=== PATIENT | male | born 1945 | race Caucasian/White ===

== ENCOUNTER → 2021-01-18 13:23 | Outpatient (BNVA) | payer MEDICARE, BC, SELFPAY | PROVIDERS: PCP Internal Medicine; Visit Provider Internal Medicine Pulmonary Disease | DX: R05 Cough (principal); J61 Pneumoconiosis due to asbestos and other mineral fibers | CPT/HCPCS: 99212 ==

== ENCOUNTER 2021-03-13 19:34 | Inpatient (IN) | payer MEDICARE, BC, SELFPAY ==
--- NOTE | ~2021-03-13 | CT_ITS ---
EXAMINATION: CT ABDOMEN AND PELVIS WITHOUT CONTRAST CLINICAL INFORMATION: Urinary tract infection and kidney failure. Evaluate for stone. COMPARISON: Previous renal ultrasound most recent July 2020 and abdominal MRI September 2017 and abdominal ultrasound May 2016 TECHNIQUE: Multidetector volumetric imaging was performed from the superior aspect of the liver through the pubic symphysis. Sagittal and coronal reformatted images were obtained on the technologist's workstation. This CT examination was performed using dose optimization techniques as appropriate, variously including the following: *Automated exposure control *Adjustment of mA and/or kV according to patient size (this includes techniques or standardized protocols for targeted exams where dose is matched to indication/reason for exam; i.e. extremities or head) *Use of iterative reconstruction technique DLP: 516 mGy-cm FINDINGS: LUNG BASES: There are increased interstitial markings and traction bronchiolectasis seen at the lung bases suggestive of interstitial lung disease. This is greater on the right. There is bilateral diaphragmatic pleural thickening and some calcification. Findings are questionable for pleural and parenchymal disease related to asbestos. Clinical correlation recommended. LIVER, GALLBLADDER, AND BILIARY TREE: The left lobe and caudate lobe of the liver are prominent questionable for mild cirrhotic changes. No focal liver lesion is seen. The gallbladder is contracted. There is no biliary duct dilatation. PANCREAS: Unremarkable. SPLEEN: Spleen is upper normal in size measuring 13 cm in length. ADRENAL GLANDS: Unremarkable KIDNEYS AND URETERS: There is a 1 cm low-attenuation lesion exophytic to the lower pole of the right kidney suggestive of a cyst. BLADDER: Empty. GASTROINTESTINAL TRACT: The small and large bowel are unremarkable. The appendix is unremarkable. The stomach is unremarkable. ABDOMINAL WALL: There is a small right inguinal hernia containing fat. LYMPH NODES: Normal. VASCULAR: There is evidence of atherosclerotic disease. No aneurysm is seen. PELVIC VISCERA: The prostate gland and removed. OSSEOUS STRUCTURES: There are degenerative changes of the spine and hip joints. CT/CT abdomen pelvis wo con IMPRESSION: No stone or hydronephrosis seen. Small right renal cyst. Question mild cirrhotic changes of the liver. Upper normal-size spleen. Bilateral pleural plaques and interstitial disease at the lung bases questionable for changes related to asbestos exposure.
--- NOTE | ~2021-03-13 | CT_ITS ---
EXAMINATION: CHEST [address] BRAIN WITHOUT CONTRAST. CLINICAL INFORMATION: Fall, head injury. No LOC. COMPARISON: CT chest 05/05/2020 TECHNIQUE: 3 mm thin axial and reformatted 2 mm thin sagittal and coronal images of brain were obtained. DLP 750 mGy/cm. Chest 2 views. FINDINGS: Brain: There is no acute intra-axial, extra-axial bleed, masses or midline shift. There is no acute infarct in evolution. The lateral ventricles are symmetrical in size and configuration without enlargement. The bautista to white matter differentiation is maintained. Bone windows reveal no calvarial abnormality. There is mild mucoperiosteal thickening right maxillary sinus and bilateral mastoid sinuses. Chest 2 views: The lungs are well-expanded and clear. There is mild loss of right lung volume with the right pleural thickening. The heart size and pulmonary vascularity is normal. There is mild spondylosis dorsal spine.. CT/CT head/brain wo con IMPRESSION: No acute intracranial process seen. No acute cardiothoracic process seen. Mild loss of right lung volume with right pleural thickening. No change from CT chest 05/05/2020
[2021-03-13 19:47] VITALS: BP 146/76; BP 156/83; PULSE 101; PULSE 98; RESP 28; TEMP 37.2; O2SAT 88; O2SAT 92; BMI 27.2
--- NOTE | 2021-03-13 19:55 | ECG_ITS ---
Test Reason : CHEST PAIN Blood Pressure : / mmHG Vent. Rate : 097 BPM Atrial Rate : 097 BPM P-R Int : 138 ms QRS Dur : 082 ms QT Int : 356 ms P-R-T Axes : 022 043 047 degrees QTc Int : 452 ms Normal sinus rhythm Normal ECG No previous ECGs available Referred By: Generic ED Physician Electronically Signed By:RC HICKS MD
--- NOTE | 2021-03-13 20:06 | ED_ITS ---
HPI - General Adult General Chief complaint: Fever Stated complaint: GENERAL WEAKNESS,FEVER Time Seen by Provider: 03/13/21 19:52 Source: patient and family (Son, Duc) Mode of arrival: EMS Limitations: no limitations History of Present Illness HPI narrative: 75-year-old male brought emergency ambulance for evaluation of fever and weakness. The patient developed a fever yesterday. The son states that he used a forehead thermometer throughout the day and the patient's temperature was 99? F. the patient had very little energy yesterday and today. He has had poor fluid and food intake over the past 48 hours. Today the patient was very weak and fell out of bed secondary to his weakness. The fall was unwit nessed but the patient believes that he did strike his head but had no loss of consciousness. The patient has noted intermittent midsternal chest pain which he has difficulty describing the cared for the pain. The pain was [id number] in intensity. He currently is not having chest pain. States the chest pain was worse with breathing. He has noted occasional dysuria but no urinary frequency. He states that he has an occasional cough which is productive but he attributes this to his asbestosis. According to his son, the patient had a temperature today of 103? F which was taken with the oral thermometer. Also, the son states that the patient was too weak to get out of bed therefore he called an ambulance and had the patient transported to the emergency department for evaluation. The patient has not had a COVID-19 infection. He has completed his 2 shot course of the maternal vaccine with a 2nd shot being 3-4 weeks prior to evaluation. Related Data Home Medications Medication Instructions Recorded Confirmed metformin 500 mg tablet 500 mg PO BID 01/18/21 Previous Rx's Medication Instructions Recorded prednisone 5 mg tablet 5 mg PO DAILY #30 tab 11/11/20 calcium carbonate 600 mg (1,500 1 tab PO BID 30 Days #60 tab 01/21/21 mg)-vitamin D3 200 unit tablet Allergies Allergy/AdvReac Type Severity Reaction Status Date / Time No Known Allergies Allergy Verified 03/13/21 19:47 Review of Systems Review of Systems: Yes all other systems are reviewed and are negative Neurologic: Reports Abnormal speech present [facility] Past Medical History [facility] Narrative: The patient lives with family. He is a former tobacco smoker, he stopped in 1985 after smoking for 30 years. He drinks alcohol occasionally. He denies drug use. Medical History Asbestosis Chronic cough Prediabetes Social History Social History Smoking Status: Former smoker Use of substances other than those prescribed or required for medical reasons: No Advance Directives: No Advance Directives Information Provided: Yes Physical Exam Vital Signs: Vital Signs: Last Vital Signs Temp 98.3 F 03/13/21 23:21 Pulse 93 03/13/21 23:21 Resp 20 03/13/21 23:21 BP 168/83 H 03/13/21 23:21 Pulse Ox 95 03/13/21 23:21 Body Mass Index 27.2 Const: General: cooperative Orientation/consciousness: oriented to person and oriented to place Limitations: no limitations HENMT: Head: Yes normal to inspection, Yes normocephalic and Yes atraumatic Ears: external ears normal General nose exam: Normal external nose present Face and sinus: Yes normal facial exam Mouth: Normal oral and palatal mucosa present Throat: Yes posterior oropharynx normal Eyes: Periorbital: periorbital findings normal Eyelids: Yes eyelids normal Conjunctivae: conjunctivae normal Sclerae: sclerae normal Corneas: corneas normal Pupils: Equal, round and reactive pupils present Direct Ophthalmoscopy: normal light reflex Neck: Neck: Yes full ROM, Yes no lymphadenopathy, Yes no meningeal signs, Yes trachea midline and Yes supple Chest: Chest palpation & inspection: normal inspection of the chest and normal palpation of entire chest wall Resp: Effort & Inspection: normal respiratory effort and able to speak in c omplete sentences Auscultation: rales diffuse Cardio: Rate: regular rate Rhythm: regular rhythm Heart sounds: S1 normal heart sound present, S2 normal heart sound present and no murmurs GI: Inspection: Yes normal to inspection Palpation (GI): Soft to palpation, nontender, no guarding, not rigid and No hepatosplenomegaly present : General: Yes no CVA tenderness Back/Spine/Pelvis: Back: no CVA tenderness Cervical Spine: normal cervical lordosis Thoracic/Lumbar Spine: thoracic and lumbar spine normal to inspection Skin: Lesions: no lesions Rashes: no rashes Wounds: no wounds Neuro: Other: Patient does have generalized weakness but is able to hold balls extremities up against gravity General: oriented to person, oriented to place and no meningeal signs Cranial nerves: Yes CN's II-XII intact bilaterally and Yes Equal, round and reactive pupils present Cognition (Neuro): normal cognition Speech: Abnormal speech present Extrem: General: Yes normal to inspection and Yes full ROM Psych: Appearance: well kempt Mental Status: mental status grossly normal Speech and movement: Normal speech and movement present Affect: normal affect Attitude: cooperative Thought process: Normal thought process present Thought content: Normal thought content present Course Course Course Narrative: 75-year-old male who presents emergency department for evaluation of fever, weakness and cough. Patient's vital signs revealed hypertension with a BP of 156/83, elevated respiratory rate of 28, O2 saturation was 92% on room air. Patient had a low-grade fever of 99.0? F.. His lung exam did reveal diffuse crackles but he does have a history of asbestosis, he also has generalized weakness. I did order a CBC, BMP, LFTs, blood cultures x2, urinalysis, chest x-ray and CT scan of the head without contrast. 2359: The patient is laboratory evaluation revealed a normal WBC of 9600 and an elevated lactic acid of 2.9. The patient's COVID-19, influenza and RSV tests were negative. The patient was ordered to get a 30 cc/kilogram fluid bolus based on his ideal body weight. Patient's repeat lactic acid improved to 1.7. The patient's urinalysis is consistent for urinary tract infection with 15-29 WBCs and 4+ bacteria. CT scan of the head was unremarkable. Chest x-ray did reveal decreased lung volume on the right which is consistent with his asbestosis with no evidence of pneumonia. Patient was ordered to get ceftriaxone 1 g IV. Given his weakness, patient will need to be admitted for further management of his urinary tract infection. I will discuss the patient's presentation with the covering hospitalist. 0011: I did discuss the case with the covering hospitalist, Dr. Goss the patient will be admitted to the hospital service. Medical Decision Making Lab Data Result diagrams: 03/13/21 20:19 03/13/21 20:19 Labs: Lab Results 03/13/21 03/13/21 03/13/21 Range/Units 20:07 20:19 20:19 WBC 9.6 (4.8-10.8) X10*3/uL RBC 4.60 (4.60-5.80) X10*6/uL Hgb 13.9 L (14.0-18.0) g/dl Hct 42.2 (42-52) % MCV 91.7 (80-98) fL MCH 30.2 (27.0-33.0) pg MCHC 32.9 (31.0-36.0) g/dl RDW 14.5 (11.0-16.0) % Plt Count 66 L (160-400) X10*3/uL MPV 12.2 (9.4-12.4) fL Immature Gran % (Auto) 1.3 H (0.0-0.4) % Neut % (Auto) 65.7 (45-73) % Lymph % (Auto) 9.4 L (20-40) % [place] % (Auto) 22.9 H (2-11) % Eos % (Auto) 0.5 (0-4) % Baso % (Auto) 0.2 (0-2) % Lymph # (Auto) 0.9 L (1.2-4.9) X10*3/uL [place] # (Auto) 2.2 H (0.1-1.2) X10*3/uL Eos # (Auto) 0.1 (0.0-0.4) X10*3/uL Baso # (Auto) 0.0 (0.0-0.2) X10*3/uL Abs Immat Gran (auto) 0.12 H (0.00-0.03) X10*3/uL Absolute Neuts (auto) 6.3 (2.0-8.3) X10*3/uL Absolute Nucleated RBC 0.000 (0.0-0.012) X10*3/uL Nucleated RBC % (auto) 0.0 (0.0-0.2) /100WBC Smear Tech's Comments VERIFIED Sodium (135-145) mmol/L Potassium (3.3-5.1) mmol/L Chloride (96-108) mmol/L Carbon Dioxide (22-29) mmol/L Anion Gap (12-20) BUN (9-16) mg/dL Creatinine (0.5-1.4) mg/dL Estim Creat Clear Calc Estimated GFR POC Glucose 225 H (60-115) mg/dL Random Glucose (60-115) mg/dL Lactic Acid (0.5-2.0) mmol/L Lactic Acid Fup @ 2Hr (0.5-2.0) mmol/L Calcium (8.4-10.2) mg/dL Total Bilirubin (0.0-1.0) mg/dL Direct Bilirubin (0.0-0.5) mg/dL AST (5-37) U/L ALT (0-40) U/L Alkaline Phosphatase (39-117) U/L Troponin I High Sens (<3.5-35.0) ng/L Total Protein (6.5-8.0) g/dL Albumin (3.5-5.0) g/dL Urine Color Urine Appearance Urine pH (5.0-8.0) Ur Specific [place] (1.005-1.025) Urine Protein (NEG-TRACE) MG/DL Urine Glucose (UA) (NEG) MG/DL Urine Ketones (NEG) MG/DL Urine Blood (NEG) Urine Nitrite (NEG) Ur Leukocyte Esterase (NEG) Urine RBC (0) /HPF Urine WBC (0-4) /HPF Urine WBC Clumps Ur Squamous Epith Cells /LPF Ur Renal Epithelial Cell /LPF Urine Bacteria /LPF Granular Casts /LPF Urine Mucus /LPF Coronavirus (PCR) NEGATIVE (Negative) Influenza Type A (PCR) NEGATIVE (Negative) Influenza Type B (PCR) NEGATIVE (Negative) RSV RNA Qual (PCR) NEGATIVE (Negative) 03/13/21 03/13/21 03/13/21 Range/Units 20:19 20:19 20:19 WBC (4.8-10.8) X10*3/uL RBC (4.60-5.80) X10*6/uL Hgb (14.0-18.0) g/dl Hct (42-52) % MCV (80-98) fL MCH (27.0-33.0) pg MCHC (31.0-36.0) g/dl RDW (11.0-16.0) % Plt Count (160-400) X10*3/uL MPV (9.4-12.4) fL Immature Gran % (Auto) (0.0-0.4) % Neut % (Auto) (45-73) % Lymph % (Auto) (20-40) % [place] % (Auto) (2-11) % Eos % (Auto) (0-4) % Baso % (Auto) (0-2) % Lymph # (Auto) (1.2-4.9) X10*3/uL [place] # (Auto) (0.1-1.2) X10*3/uL Eos # (Auto) (0.0-0.4) X10*3/uL Baso # (Auto) (0.0-0.2) X10*3/uL Abs Immat Gran (auto) (0.00-0.03) X10*3/uL Absolute Neuts (auto) (2.0-8.3) X10*3/uL Absolute Nucleated RBC (0.0-0.012) X10*3/uL Nucleated RBC % (auto) (0.0-0.2) /100WBC Smear Tech's Comments Sodium 137 (135-145) mmol/L Potassium 4.1 (3.3-5.1) mmol/L Chloride 98 (96-108) mmol/L Carbon Dioxide 26 (22-29) mmol/L Anion Gap 17 (12-20) BUN 14 (9-16) mg/dL Creatinine 1.22 (0.5-1.4) mg/dL Estim Creat Clear Calc 47.4 Estimated GFR 58 POC Glucose (60-115) mg/dL Random Glucose 236 H (60-115) mg/dL Lactic Acid 2.9 H* (0.5-2.0) mmol/L Lactic Acid Fup @ 2Hr (0.5-2.0) mmol/L Calcium 9.1 (8.4-10.2) mg/dL Total Bilirubin (0.0-1.0) mg/dL Direct Bilirubin (0.0-0.5) mg/dL AST (5-37) U/L ALT (0-40) U/L Alkaline Phosphatase (39-117) U/L Troponin I High Sens 9.9 (<3.5-35.0) ng/L Total Protein (6.5-8.0) g/dL Albumin (3.5-5.0) g/dL Urine Color Urine Appearance Urine pH (5.0-8.0) Ur Specific [place] (1.005-1.025) Urine Protein (NEG-TRACE) MG/DL Urine Glucose (UA) (NEG) MG/DL Urine Ketones (NEG) MG/DL Urine Blood (NEG) Urine Nitrite (NEG) Ur Leukocyte Esterase (NEG) Urine RBC (0) /HPF Urine WBC (0-4) /HPF Urine WBC Clumps Ur Squamous Epith Cells /LPF Ur Renal Epithelial Cell /LPF Urine Bacteria /LPF Granular Casts /LPF Urine Mucus /LPF Coronavirus (PCR) (Negative) Influenza Type A (PCR) (Negative) Influenza Type B (PCR) (Negative) RSV RNA Qual (PCR) (Negative) 03/13/21 03/13/21 03/13/21 Range/Units 20:24 22:42 23:02 WBC (4.8-10.8) X10*3/uL RBC (4.60-5.80) X10*6/uL Hgb (14.0-18.0) g/dl Hct (42-52) % MCV (80-98) fL MCH (27.0-33.0) pg MCHC (31.0-36.0) g/dl RDW (11.0-16.0) % Plt Count (160-400) X10*3/uL MPV (9.4-12.4) fL Immature Gran % (Auto) (0.0-0.4) % Neut % (Auto) (45-73) % Lymph % (Auto) (20-40) % [place] % (Auto) (2-11) % Eos % (Auto) (0-4) % Baso % (Auto) (0-2) % Lymph # (Auto) (1.2-4.9) X10*3/uL [place] # (Auto) (0.1-1.2) X10*3/uL Eos # (Auto) (0.0-0.4) X10*3/uL Baso # (Auto) (0.0-0.2) X10*3/uL Abs Immat Gran (auto) (0.00-0.03) X10*3/uL Absolute Neuts (auto) (2.0-8.3) X10*3/uL Absolute Nucleated RBC (0.0-0.012) X10*3/uL Nucleated RBC % (auto) (0.0-0.2) /100WBC Smear Tech's Comments Sodium (135-145) mmol/L Potassium (3.3-5.1) mmol/L Chloride (96-108) mmol/L Carbon Dioxide (22-29) mmol/L Anion Gap (12-20) BUN (9-16) mg/dL Creatinine (0.5-1.4) mg/dL Estim Creat Clear Calc Estimated GFR POC Glucose (60-115) mg/dL Random Glucose (60-115) mg/dL Lactic Acid (0.5-2.0) mmol/L Lactic Acid Fup @ 2Hr 1.7 (0.5-2.0) mmol/L Calcium (8.4-10.2) mg/dL Total Bilirubin 1.7 H (0.0-1.0) mg/dL Direct Bilirubin 0.7 H (0.0-0.5) mg/dL AST 20 (5-37) U/L ALT 14 (0-40) U/L Alkaline Phosphatase 63 (39-117) U/L Troponin I High Sens (<3.5-35.0) ng/L Total Protein 6.8 (6.5-8.0) g/dL Albumin 4.0 (3.5-5.0) g/dL Urine Color DARK YELLOW Urine Appearance CLOUDY Urine pH 6.0 (5.0-8.0) Ur Specific [place] >= 1.030 H (1.005-1.025) Urine Protein 2+ H (NEG-TRACE) MG/DL Urine Glucose (UA) 250 H (NEG) MG/DL Urine Ketones 15 (NEG) MG/DL Urine Blood 3+ H (NEG) Urine Nitrite NEG (NEG) Ur Leukocyte Esterase NEG (NEG) Urine RBC 1-4 (0) /HPF Urine WBC 15-29 H (0-4) /HPF Urine WBC Clumps NOTED Ur Squamous Epith Cells TRACE /LPF Ur Renal Epithelial Cell TRACE /LPF Urine Bacteria 4+ /LPF Granular Casts 1-4 /LPF Urine Mucus 1+ /LPF Coronavirus (PCR) (Negative) Influenza Type A (PCR) (Negative) Influenza Type B (PCR) (Negative) RSV RNA Qual (PCR) (Negative) 03/13/21 Range/Units 23:25 WBC (4.8-10.8) X10*3/uL RBC (4.60-5.80) X10*6/uL Hgb (14.0-18.0) g/dl Hct (42-52) % MCV (80-98) fL MCH (27.0-33.0) pg MCHC (31.0-36.0) g/dl RDW (11.0-16.0) % Plt Count (160-400) X10*3/uL MPV (9.4-12.4) fL Immature Gran % (Auto) (0.0-0.4) % Neut % (Auto) (45-73) % Lymph % (Auto) (20-40) % [place] % (Auto) (2-11) % Eos % (Auto) (0-4) % Baso % (Auto) (0-2) % Lymph # (Auto) (1.2-4.9) X10*3/uL [place] # (Auto) (0.1-1.2) X10*3/uL Eos # (Auto) (0.0-0.4) X10*3/uL Baso # (Auto) (0.0-0.2) X10*3/uL Abs Immat Gran (auto) (0.00-0.03) X10*3/uL Absolute Neuts (auto) (2.0-8.3) X10*3/uL Absolute Nucleated RBC (0.0-0.012) X10*3/uL Nucleated RBC % (auto) (0.0-0.2) /100WBC Smear Tech's Comments Sodium (135-145) mmol/L Potassium (3.3-5.1) mmol/L Chloride (96-108) mmol/L Carbon Dioxide (22-29) mmol/L Anion Gap (12-20) BUN (9-16) mg/dL Creatinine (0.5-1.4) mg/dL Estim Creat Clear Calc Estimated GFR POC Glucose 162 H (60-115) mg/dL Random Glucose (60-115) mg/dL Lactic Acid (0.5-2.0) mmol/L Lactic Acid Fup @ 2Hr (0.5-2.0) mmol/L Calcium (8.4-10.2) mg/dL Total Bilirubin (0.0-1.0) mg/dL Direct Bilirubin (0.0-0.5) mg/dL AST (5-37) U/L ALT (0-40) U/L Alkaline Phosphatase (39-117) U/L Troponin I High Sens (<3.5-35.0) ng/L Total Protein (6.5-8.0) g/dL Albumin (3.5-5.0) g/dL Urine Color Urine Appearance Urine pH (5.0-8.0) Ur Specific [place] (1.005-1.025) Urine Protein (NEG-TRACE) MG/DL Urine Glucose (UA) (NEG) MG/DL Urine Ketones (NEG) MG/DL Urine Blood (NEG) Urine Nitrite (NEG) Ur Leukocyte Esterase (NEG) Urine RBC (0) /HPF Urine WBC (0-4) /HPF Urine WBC Clumps Ur Squamous Epith Cells /LPF Ur Renal Epithelial Cell /LPF Urine Bacteria /LPF Granular Casts /LPF Urine Mucus /LPF Coronavirus (PCR) (Negative) Influenza Type A (PCR) (Negative) Influenza Type B (PCR) (Negative) RSV RNA Qual (PCR) (Negative) Discharge Plan Discharge Clinical Impression: Urinary tract infection, Weakness, Acute dehydration Patient Disposition: Admitted As Inpatient Prescriptions: No Action prednisone 5 mg tablet 5 mg PO DAILY Qty: 30 RF: 0 calcium carbonate-vitamin D3 600 mg(1,500mg) -200 unit tablet 1 tab PO BID 30 Days Qty: 60 RF: 6
[2021-03-13 20:16] LABS: Glucose, Whole Blood 225 mg/dL (60-115)
[2021-03-13] MEDS: 0.9 % Sodium Chloride 1,000 ML 999 ML IV (20:20)
[2021-03-13 20:27] LABS: Basophils Percent Auto 0.2 % (0-2); Eosinophils Absolute Auto 0.1 X10*3/uL (0.0-0.4); Eosinophils Percent Auto 0.5 % (0-4); Hematocrit 42.2 % (42-52); Hemoglobin 13.9 g/dl (14.0-18.0); Imm Gran Abs Auto 0.12 X10*3/uL (0.00-0.03); Imm Gran Pct Auto 1.3 % (0.0-0.4); Lymphocytes Absolute Auto 0.9 X10*3/uL (1.2-4.9); Lymphocytes Percent Auto 9.4 % (20-40); MANUAL DIFF FLAG SCAN; Mean Corpuscular HGB Conc 32.9 g/dl (31.0-36.0); Mean Corpuscular Hemoglobin 30.2 pg (27.0-33.0); Mean Corpuscular Volume 91.7 fL (80-98); Mean Platelet Volume 12.2 fL (9.4-12.4); Monocytes Absolute Auto 2.2 X10*3/uL (0.1-1.2); Monocytes Percent Auto 22.9 % (2-11); Neutrophils Absolute Auto 6.3 X10*3/uL (2.0-8.3); Neutrophils Percent Auto 65.7 % (45-73); Red Cell Distribution Width 14.5 % (11.0-16.0); SCAN SMEAR FLAG 1; White Blood Count 9.6 X10*3/uL (4.8-10.8)
[2021-03-13 20:45] LABS: Platelet Count 66 X10*3/uL (160-400); SLIDE REVIEW VERIFIED
[2021-03-13 20:46] LABS: Anion Gap 17 (12-20); Blood Urea Nitrogen 14 mg/dL (9-16); Calcium 9.1 mg/dL (8.4-10.2); Carbon Dioxide 26 mmol/L (22-29); Chloride 98 mmol/L (96-108); Creatinine Clr Calc Pharmacy 47.4; Estimated Glomerular Filt Rate 58; Glucose Random 236 mg/dL (60-115); Potassium 4.1 mmol/L (3.3-5.1); Sodium 137 mmol/L (135-145)
[2021-03-13 20:49] LABS: Lactic Acid 2.9 mmol/L (0.5-2.0)
[2021-03-13 21:05] LABS: Alanine Aminotransferase 14 U/L (0-40); Alkaline Phosphatase 63 U/L (39-117); Aspartate Amino Transferase 20 U/L (5-37); Bilirubin Direct 0.7 mg/dL (0.0-0.5); Bilirubin Total 1.7 mg/dL (0.0-1.0); Total Protein 6.8 g/dL (6.5-8.0)
[2021-03-13 21:05] LABS: Influenza A PCR NEGATIVE (Negative); Influenza B PCR NEGATIVE (Negative); Resp Syncy Virus RNA Qual PCR NEGATIVE (Negative); SARS COV2 PCR INHOUSE NEGATIVE (Negative)
[2021-03-13 21:11] LABS: Troponin-I High Sensitivity 9.9 ng/L (<3.5-35.0)
[2021-03-13] MEDS: 0.9 % Sodium Chloride 1,983 ML 1983 ML IVCONT (21:53)
[2021-03-13 22:23] LABS: Reflex Lactate? Lactic Acid Added
[2021-03-13 22:45] VITALS: BP 145/78; PULSE 87; RESP 26; TEMP 37.5; O2SAT 96
[2021-03-13 23:02] VITALS: BP 152/79; PULSE 88; RESP 20; TEMP 37.8; O2SAT 95
--- NOTE | 2021-03-13 23:03 | PC.NURSE ---
Report taken from Bridgette, tigre RN resuming care. UA obtained and sent. VSS. Pt requesting PO, inquiring as to plan of care. Continue to monitor.
[2021-03-13 23:06] LABS: ~Lactic Acid-LAB USE ONLY 1.7 mmol/L (0.5-2.0)
[2021-03-13 23:14] LABS: Glucose Urine UA 250 MG/DL (NEG); Leukocyte Esterase Urine NEG (NEG); Nitrite Urine NEG (NEG); Specific Gravity - Urine >= 1.030 (1.005-1.025); Urine Blood 3+ (NEG); Urine Ketones 15 MG/DL (NEG); Urine Protein 2+ MG/DL (NEG-TRACE)
[2021-03-13 23:15] LABS: Appearance Urine CLOUDY; Color Urine DARK YELLOW
[2021-03-13 23:21] VITALS: BP 168/83; PULSE 93; RESP 20; TEMP 36.8; O2SAT 95
[2021-03-13 23:29] LABS: Glucose, Whole Blood 162 mg/dL (60-115)
[2021-03-13 23:38] LABS: Bacteria Urine 4+ /LPF; Mucus Urine 1+ /LPF; Renal Epithelial Cells Urine TRACE /LPF; Squamous Epithelial Cell Urine TRACE /LPF; WBC Clumps Urine NOTED
[2021-03-14] VITALS (9 sets, daily range): BP systolic 136–158; BP diastolic 63–77; PULSE 72–125; RESP 15–40; TEMP 36.8–37.5; O2SAT 92–97
[2021-03-14] MEDS: cefTRIAXone sodium 1 GM in 0.9 % Sodium Chloride 50 ML IV ×2 (00:04→20:49)
--- NOTE | 2021-03-14 00:07 | PC.NURSE ---
Rocephin infusing per MAR.
--- NOTE | 2021-03-14 00:11 | PC.NURSE ---
MD at bedside discussing results and plan of care.
--- NOTE | 2021-03-14 00:13 | PC.NURSE ---
Hospitalist at bedside.
--- NOTE | 2021-03-14 00:21 | PC.NURSE ---
Med Rec completed at bedside with pt and son.
--- NOTE | 2021-03-14 00:44 | PC.NURSE ---
Pt heard calling out in room. Pt requesting to use the urinal. Pt extremely anxious and tachypneic with a RR of 40. Pt states that he always become SOB with minimal activity. O2 sat 95%. Pt assisted with urinal and moved into POC. Pt provided with the call martin, VSS. Continue to monitor.
--- NOTE | 2021-03-14 04:34 | PC.NURSE ---
This RN calling M/S to give report, M/S to call back when ready to take report.
--- NOTE | 2021-03-14 06:08 | PM.IMHP ---
History of Present Illness Date of Service: 03/14/21 Chief Complaint: weakness, fever 75-year-old male with past medical history of asbestos, chronic cough, prediabetes but in by his son to the hospital for weakness and fever. Patient also reported that he fell out of bed this morning and had difficulty getting back on his bed. He reports that he felt too weak to get up, denies having any loss of consciousness, no chest pain or palpitations. He reports that he went to reach for his juice at bedside and that is when he fell and hit his head. His son reports that he was not feeling himself the evening prior with low oral intake, and and a fever of 103. Patient has also been bed all day. He is also complaining of dysuria. Patient has had no oral intake all day. He has a chronic cough with no new sputum production or shortness of breath. He denies any headache, change in vision, no chest pain, no abdominal pain, nausea vomiting, no diarrhea constipation. No lower extremity edema, no numbness or tingling or weakness. On arrival to the ED hemodynamically stable with no significant abnormal vitals except for a temp of 100.0, tachycardia of 125, tachypnea of 28 breaths per minute. Labs are significant for 9.6, hemoglobin of 13.9, platelet count of 66, lactic acid of 2.9 that improved to 1.7 after fluids, total bili of 1.7, direct bili of 0.7, AST, ALT, alk phos, and albumin normal. Troponin negative. UA that is positive is positive for WBC and bacteria cells Chest x-ray shows no acute cardiothoracic process. Review of Systems Review of Systems: Yes all other systems are reviewed and are negative [facility] Medical History Asbestosis Chronic cough Prediabetes Social History Household Members: Family Housing: House Do you presently have visiting nurse or other home services: No Smoking Status: Former smoker Smoked in Last 30 Days: No Use of substances other than those prescribed or required for medical reasons: No Currently Displaying Signs/Symptoms of Drug Intoxication Withdrawal: No Any prior treatment program specific to substance use: No Have you been hit, kicked, punched, or otherwise hurt by someone within the past year? If so, by whom?: No Do you feel safe in your current relationship?: Yes Is there a partner from a previous relationship who is making you feel unsafe now?: No Are you made to feel afraid or neglected: No Advance Directives: No Advance Directives Information Provided: Yes Do you have thoughts of harming others: None Do you have a plan to hurt others: No Plan Recently lost weight without trying: No Meds Allergies Allergy/AdvReac Type Severity Reaction Status Date / Time No Known Allergies Allergy Verified 03/13/21 19:47 Active Medications: Current Medications Generic Name Dose Route Start Last Admin Trade Name Freq PRN Reason Stop Dose Admin Acetaminophen 650 mg 03/14/21 04:19 Acetaminophen 325 Mg Tablet PO Q6H PRN Pain, Mild (Pain Scale 1-3) Aspirin 81 mg 03/14/21 09:00 Aspirin Enteric Coated 81 Mg Tablet.Dr PO DAILY [facility] Docusate Sodium 100 mg 03/14/21 04:19 Docusate Sodium 100 Mg Capsule PO DAILY PRN Constipation Heparin Sodium (Porcine) 5,000 unit 03/14/21 09:00 Heparin Sodium,Porcine 5,000 Unit/Ml Vial SUBCUT Q12H [facility] Ceftriaxone Sodium 1 gm/ 50 mls @ 100 mls/hr 03/14/21 21:00 Sodium Chloride IV Q24H [facility] Ondansetron HCl 4 mg 03/14/21 04:19 Ondansetron Hcl 4 Mg/2 Ml Vial IVPUSH Q8H PRN Nausea and Vomiting Prednisone 5 mg 03/14/21 09:00 Prednisone 5 Mg Tablet PO DAILY [facility] Sodium Chloride 3 ml 03/14/21 08:00 0.9 % Sodium Chloride Flush 3 Ml Syringe IVFLUSH QSHIFT [facility] Home Medications Medication Instructions Recorded Confirmed Last Taken Type metformin 500 mg tablet 500 mg PO BID 01/18/21 03/14/21 03/13/21 21:00 History aspirin 81 mg PO DAILY 03/14/21 03/14/21 03/13/21 08:00 History Physical Exam Vital Signs and Narrative: Vital Signs: Last Vital Signs Temp 99.1 F 03/14/21 06:01 Pulse 82 03/14/21 06:01 Resp 18 03/14/21 06:01 BP 138/63 03/14/21 06:01 Pulse Ox 92 03/14/21 06:01 Body Mass Index 27.2 Const: General: cooperative and no acute distress Orientation/consciousness: patient oriented x3 Eyes: General: appearance normal, both eyes and all related structures Resp: Effort & Inspection: normal respiratory effort and able to speak in complete sentences Cardio: Rate: regular rate Rhythm: regular rhythm GI: Palpation (GI): Soft to palpation Auscultation: normal bowel sounds Skin: General skin exam: no rashes or lesions noted Neuro: General: patient oriented x3 Cognition (Neuro): normal cognition Extrem: General: Yes normal to inspection and Yes no pedal edema Results Labs CBC and Chem 7: 03/13/21 20:19 03/13/21 20:19 Labs: Laboratory Results - last 24 hr 03/13/21 03/13/21 03/13/21 20:07 20:19 20:19 MCV 91.7 MCH 30.2 MCHC 32.9 RDW 14.5 Plt Count 66 L MPV 12.2 Immature Gran % (Auto) 1.3 H Neut % (Auto) 65.7 Lymph % (Auto) 9.4 L [place] % (Auto) 22.9 H Eos % (Auto) 0.5 Baso % (Auto) 0.2 Lymph # (Auto) 0.9 L [place] # (Auto) 2.2 H Eos # (Auto) 0.1 Baso # (Auto) 0.0 Abs Immat Gran (auto) 0.12 H Absolute Neuts (auto) 6.3 Absolute Nucleated RBC 0.000 Nucleated RBC % (auto) 0.0 Smear Tech's Comments VERIFIED Anion Gap Estim Creat Clear Calc Estimated GFR POC Glucose 225 H Random Glucose Lactic Acid Lactic Acid Fup @ 2Hr Calcium Total Bilirubin Direct Bilirubin AST ALT Alkaline Phosphatase Troponin I High Sens Total Protein Albumin Urine Color Urine Appearance Urine pH Ur Specific [place] Urine Protein Urine Glucose (UA) Urine Ketones Urine Blood Urine Nitrite Ur Leukocyte Esterase Urine RBC Urine WBC Urine WBC Clumps Ur Squamous Epith Cells Ur Renal Epithelial Cell Urine Bacteria Granular Casts Urine Mucus Coronavirus (PCR) NEGATIVE Influenza Type A (PCR) NEGATIVE Influenza Type B (PCR) NEGATIVE RSV RNA Qual (PCR) NEGATIVE 03/13/21 03/13/21 03/13/21 20:19 20:19 20:19 MCV MCH MCHC RDW Plt Count MPV Immature Gran % (Auto) Neut % (Auto) Lymph % (Auto) [place] % (Auto) Eos % (Auto) Baso % (Auto) Lymph # (Auto) [place] # (Auto) Eos # (Auto) Baso # (Auto) Abs Immat Gran (auto) Absolute Neuts (auto) Absolute Nucleated RBC Nucleated RBC % (auto) Smear Tech's Comments Anion Gap 17 Estim Creat Clear Calc 47.4 Estimated GFR 58 POC Glucose Random Glucose 236 H Lactic Acid 2.9 H* Lactic Acid Fup @ 2Hr Calcium 9.1 Total Bilirubin Direct Bilirubin AST ALT Alkaline Phosphatase Troponin I High Sens 9.9 Total Protein Albumin Urine Color Urine Appearance Urine pH Ur Specific [place] Urine Protein Urine Glucose (UA) Urine Ketones Urine Blood Urine Nitrite Ur Leukocyte Esterase Urine RBC Urine WBC Urine WBC Clumps Ur Squamous Epith Cells Ur Renal Epithelial Cell Urine Bacteria Granular Casts Urine Mucus Coronavirus (PCR) Influenza Type A (PCR) Influenza Type B (PCR) RSV RNA Qual (PCR) 03/13/21 03/13/21 03/13/21 20:24 22:42 23:02 MCV MCH MCHC RDW Plt Count MPV Immature Gran % (Auto) Neut % (Auto) Lymph % (Auto) [place] % (Auto) Eos % (Auto) Baso % (Auto) Lymph # (Auto) [place] # (Auto) Eos # (Auto) Baso # (Auto) Abs Immat Gran (auto) Absolute Neuts (auto) Absolute Nucleated RBC Nucleated RBC % (auto) Smear Tech's Comments Anion Gap Estim Creat Clear Calc Estimated GFR POC Glucose Random Glucose Lactic Acid Lactic Acid Fup @ 2Hr 1.7 Calcium Total Bilirubin 1.7 H Direct Bilirubin 0.7 H AST 20 ALT 14 Alkaline Phosphatase 63 Troponin I High Sens Total Protein 6.8 Albumin 4.0 Urine Color DARK YELLOW Urine Appearance CLOUDY Urine pH 6.0 Ur Specific [place] >= 1.030 H Urine Protein 2+ H Urine Glucose (UA) 250 H Urine Ketones 15 Urine Blood 3+ H Urine Nitrite NEG Ur Leukocyte Esterase NEG Urine RBC 1-4 Urine WBC 15-29 H Urine WBC Clumps NOTED Ur Squamous Epith Cells TRACE Ur Renal Epithelial Cell TRACE Urine Bacteria 4+ Granular Casts 1-4 Urine Mucus 1+ Coronavirus (PCR) Influenza Type A (PCR) Influenza Type B (PCR) RSV RNA Qual (PCR) 03/13/21 23:25 MCV MCH MCHC RDW Plt Count MPV Immature Gran % (Auto) Neut % (Auto) Lymph % (Auto) [place] % (Auto) Eos % (Auto) Baso % (Auto) Lymph # (Auto) [place] # (Auto) Eos # (Auto) Baso # (Auto) Abs Immat Gran (auto) Absolute Neuts (auto) Absolute Nucleated RBC Nucleated RBC % (auto) Smear Tech's Comments Anion Gap Estim Creat Clear Calc Estimated GFR POC Glucose 162 H Random Glucose Lactic Acid Lactic Acid Fup @ 2Hr Calcium Total Bilirubin Direct Bilirubin AST ALT Alkaline Phosphatase Troponin I High Sens Total Protein Albumin Urine Color Urine Appearance Urine pH Ur Specific [place] Urine Protein Urine Glucose (UA) Urine Ketones Urine Blood Urine Nitrite Ur Leukocyte Esterase Urine RBC Urine WBC Urine WBC Clumps Ur Squamous Epith Cells Ur Renal Epithelial Cell Urine Bacteria Granular Casts Urine Mucus Coronavirus (PCR) Influenza Type A (PCR) Influenza Type B (PCR) RSV RNA Qual (PCR) Imaging Radiologist's Impressions: Impressions Chest X-Ray 03/13/21 20:15 IMPRESSION: No acute intracranial process seen. No acute cardiothoracic process seen. Mild loss of right lung volume with right pleural thickening. No change from CT chest 05/05/[address] 03/13/21 20:19 IMPRESSION: No acute intracranial process seen. No acute cardiothoracic process seen. Mild loss of right lung volume with right pleural thickening. No change from CT chest 05/05/2020 Assessment and Plan (1) Sepsis: Status: Acute (2) Asbestosis: Status: Acute (3) Urinary tract infection: Qualifiers: Hematuria presence: without hematuria Urinary tract infection type: acute cystitis Qualified Code(s): N30.00 - Acute cystitis without hematuria Status: Acute (4) Weakness: Status: Acute (5) TALA (acute kidney injury): Status: Acute 75-year-old male past medical history of diabetes who presents to the hospital with weakness and fever, found to meet sepsis criteria # sepsis - most likely source is UTI versus asbestos most likely, worsened pneumonia - chest x-ray clear, patient has history of chronic asbestos per son and patient - had elevated lactic acid, tachycardia, tachypnea, fever - UTI positive for leukocytes as well as bacteria - at this time will treat with ceftriaxone - follow cultures # UTI - dysuria, WBC, an bacterial found in urine - will treat with IV antibiotics - follow cultures # TALA - has mild TALA with a creatinine around 1.22 with baseline around 1.0 - will start him on IV fluids - follow BMP # DM - LDSSI - Diabetic diet DVT prophylaxis: Heparin subQ
[2021-03-14] MEDS: Lactated Ringers 1,000 ML 100 ML IVCONT ×2 (06:51→16:18)
[2021-03-14 08:09] LABS: Glucose, Whole Blood 197 mg/dL (60-115)
[2021-03-14] MEDS: predniSONE 5 MG TABLET PO (09:39)
[2021-03-14] MEDS: Heparin Sodium,Porcine 5,000 UNIT/ML VIAL 5000 UNIT SUBCUT ×2 (09:39→20:49)
[2021-03-14] MEDS: Aspirin Enteric Coated 81 MG TABLET.DR PO (09:39)
--- NOTE | 2021-03-14 10:55 | MHC.CM.PN ---
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 PT VERIFIES PCP JERROD SINGER AND REPORTS HIS IS HIS HCP, COPY REQUESTED. DISCHARGE PLAN: HOME SELF-CARE, FAMILY TO TRANSPORT
[2021-03-14 11:42] LABS: Glucose, Whole Blood 197 mg/dL (60-115)
[2021-03-14 16:15] LABS: Glucose, Whole Blood 223 mg/dL (60-115)
[2021-03-14] MEDS: Insulin Lispro 100 UNIT/ML 3 ML VIAL SUBCUT ×2 (17:32→20:54)
[2021-03-14 20:34] LABS: Glucose, Whole Blood 163 mg/dL (60-115)
[2021-03-15 04:00] VITALS: BP 159/74; PULSE 84; RESP 18; TEMP 37.2; O2SAT 95
[2021-03-15 04:20] LABS: Basophils Percent Auto 0.2 % (0-2); Eosinophils Percent Auto 0.4 % (0-4); Hematocrit 33.5 % (42-52); MANUAL DIFF FLAG SCAN; Mean Corpuscular Volume 91.3 fL (80-98); PLT CLUMP 1; Red Blood Count 3.67 X10*6/uL (4.60-5.80); Red Cell Distribution Width 14.3 % (11.0-16.0); SCAN SMEAR FLAG 1
[2021-03-15 04:21] LABS: Imm Gran Abs Auto 0.07 X10*3/uL (0.00-0.03); Imm Gran Pct Auto 1.4 % (0.0-0.4); Lymphocytes Absolute Auto 1.1 X10*3/uL (1.2-4.9); Lymphocytes Percent Auto 21.3 % (20-40); Mean Corpuscular HGB Conc 32.8 g/dl (31.0-36.0); Mean Platelet Volume 12.8 fL (9.4-12.4); Monocytes Absolute Auto 1.2 X10*3/uL (0.1-1.2); Monocytes Percent Auto 22.9 % (2-11); Neutrophils Absolute Auto 2.7 X10*3/uL (2.0-8.3); Neutrophils Percent Auto 53.8 % (45-73); White Blood Count 5.1 X10*3/uL (4.8-10.8)
[2021-03-15 04:23] LABS: Platelet Count 51 X10*3/uL (160-400)
[2021-03-15] MEDS: Lactated Ringers 1,000 ML 100 ML IVCONT (04:39)
[2021-03-15 04:43] LABS: SLIDE REVIEW VERIFIED
[2021-03-15 04:57] LABS: Anion Gap 13 (12-20); Blood Urea Nitrogen 13 mg/dL (9-16); Calcium 7.9 mg/dL (8.4-10.2); Carbon Dioxide 23 mmol/L (22-29); Chloride 105 mmol/L (96-108); Creatinine Clr Calc Pharmacy 67.2; Estimated Glomerular Filt Rate > 60; Glucose Random 129 mg/dL (60-115); Potassium 3.5 mmol/L (3.3-5.1); Sodium 137 mmol/L (135-145)
[2021-03-15 07:19] LABS: Glucose, Whole Blood 123 mg/dL (60-115)
[2021-03-15 08:00] VITALS: BP 155/83; PULSE 87; RESP 20; TEMP 37.7; O2SAT 94
[2021-03-15] MEDS: Aspirin Enteric Coated 81 MG TABLET.DR PO (08:20)
[2021-03-15] MEDS: predniSONE 5 MG TABLET PO (08:20)
[2021-03-15] MEDS: Heparin Sodium,Porcine 5,000 UNIT/ML VIAL 5000 UNIT SUBCUT (08:20)
--- NOTE | 2021-03-15 10:15 | HO.PM.IMPN ---
Subjective Subjective Date of Service: 03/15/21 Interval History: Seen in follow-up for sepsis due to UTI, bacteremia. Patient is doing much better feel better no fever or chill WBCs are normal. Review of Systems Gen: no fever Resp: no sob, no cough CV: no chest, no ANDERS, no leg edema GI: No n/v, no abd pain Neuro: No confusion Physical Exam Vital Signs: Vital Signs: Last Vital Signs Temp 99.8 F 03/15/21 08:00 Pulse 87 03/15/21 08:00 Resp 20 03/15/21 08:00 BP 155/83 H 03/15/21 08:00 Pulse Ox 94 03/15/21 08:00 Body Mass Index 27.2 General: AO X 3, no acute distress Resp: CTA bilateral CVS: S1,S2,RRR GI: +BS, NT, no distention Skin: No rash Neuro: motor grossly intact Psych: appropriate affect Objective Data Current Medications Generic Name Dose Route Start Last Admin Trade Name Freq PRN Reason Stop Dose Admin Acetaminophen 650 mg 03/14/21 04:19 Acetaminophen 325 Mg Tablet PO Q6H PRN Pain, Mild (Pain Scale 1-3) Aspirin 81 mg 03/14/21 09:00 03/15/21 08:20 Aspirin Enteric Coated 81 Mg Tablet.Dr PO 81 mg DAILY RASHAD Administration Docusate Sodium 100 mg 03/14/21 04:19 Docusate Sodium 100 Mg Capsule PO DAILY PRN Constipation Heparin Sodium (Porcine) 5,000 unit 03/14/21 09:00 03/15/21 08:20 Heparin Sodium,Porcine 5,000 Unit/Ml Vial SUBCUT 5,000 unit Q12H RASHAD Administration Ceftriaxone Sodium 1 gm/ 50 mls @ 100 mls/hr 03/14/21 21:00 03/14/21 21:29 Sodium Chloride IV Infused Q24H RASHAD Infusion Lactated Ringer's 1,000 mls @ 100 mls/hr 03/14/21 06:30 03/15/21 04:39 Lr IVCONT 100 mls/hr .Q10H RASHAD Administration Insulin Human Lispro 0 unit 03/14/21 07:30 03/15/21 08:21 Insulin Lispro 100 Unit/Ml 3 Ml Vial SUBCUT Not Given QIDACHS [facility] Protocol Ondansetron HCl 4 mg 03/14/21 04:19 Ondansetron Hcl 4 Mg/2 Ml Vial IVPUSH Q8H PRN Nausea and Vomiting Prednisone 5 mg 03/14/21 09:00 03/15/21 08:20 Prednisone 5 Mg Tablet PO 5 mg DAILY RASHAD Administration Sodium Chloride 3 ml 03/14/21 08:00 03/15/21 08:20 0.9 % Sodium Chloride Flush 3 Ml Syringe IVFLUSH Not Given QSHIFT [facility] Labs CBC & Chem 7: 03/15/21 04:12 03/15/21 04:12 Microbiology Microbiology Results: Microbiology 03/13/21 20:24 Blood - Venous Blood Culture - Preliminary Gram negative briana 03/13/21 20:19 Blood - Venous Blood Culture - Preliminary No growth after 24 hours. Assessment and Plan (1) Sepsis: Status: Acute (2) Asbestosis: Status: Acute (3) Urinary tract infection: Status: Acute (4) Weakness: Status: Acute (5) TALA (acute kidney injury): Status: Acute Assessment and Plan: 75-year-old male past medical history of diabetes who presents to the hospital with weakness and fever, found to meet sepsis criteria # sepsis due to UTI, Gram-negative briana bacteremia. He is afebrile generally doing well better -id consult -continue ceftriaxone until sensitivity is available, does from microbiology is reporting that he may be Klebsiella. # UTI--Se above. # TALA--mild, resolved. # DM - LDSSI - Diabetic diet DVT prophylaxis: Heparin subQ
[2021-03-15 11:04] VITALS: BP 141/70; PULSE 76; RESP 22; TEMP 37.1; O2SAT 96
[2021-03-15 11:12] LABS: Glucose, Whole Blood 224 mg/dL (60-115)
[2021-03-15] MEDS: Insulin Lispro 100 UNIT/ML 3 ML VIAL SUBCUT (12:11)
--- NOTE | 2021-03-15 14:12 | W.PM.IDCN ---
History of Present Illness Data of Consult Service Date: 03/15/21 Requesting physician: Keagan Perez Primary Care Provider: Mode Thompson MD HPI Reason for consult: bacteremia He presents brought in by son for fever and weakness for a day He had temperature at home 103 and 99 here He has some generalized abdominal discomfort,now better and denies dysuria or cough He had Moderna COVID vaccine,second one 3 weeks ago Review of Systems Review of Systems: Yes all other systems are reviewed and are negative PMFSH Past Medical History Medical History Asbestosis Chronic cough Prediabetes Family History Family history: reviewed and not pertinent Social History Social History Household Members: Family Housing: House Do you presently have visiting nurse or other home services: No Smoking Status: Former smoker Smoked in Last 30 Days: No Use of substances other than those prescribed or required for medical reasons: No Currently Displaying Signs/Symptoms of Drug Intoxication Withdrawal: No Any prior treatment program specific to substance use: No Have you been hit, kicked, punched, or otherwise hurt by someone within the past year? If so, by whom?: No Do you feel safe in your current relationship?: Yes Is there a partner from a previous relationship who is making you feel unsafe now?: No Are you made to feel afraid or neglected: No Advance Directives: No Advance Directives Information Provided: Yes Do you have thoughts of harming others: None Do you have a plan to hurt others: No Plan Recently lost weight without trying: No service: Yes Current occupational status: retired [employer] Allergies Allergy/AdvReac Type Severity Reaction Status Date / Time No Known Allergies Allergy Verified 03/13/21 19:47 Active Medications: Current Medications Generic Name Dose Route Start Last Admin Trade Name Freq PRN Reason Stop Dose Admin Acetaminophen 650 mg 03/14/21 04:19 Acetaminophen 325 Mg Tablet PO Q6H PRN Pain, Mild (Pain Scale 1-3) Aspirin 81 mg 03/14/21 09:00 03/15/21 08:20 Aspirin Enteric Coated 81 Mg Tablet. PO 81 mg DAILY RASHAD Administration Docusate Sodium 100 mg 03/14/21 04:19 Docusate Sodium 100 Mg Capsule PO DAILY PRN Constipation Heparin Sodium (Porcine) 5,000 unit 03/14/21 09:00 03/15/21 08:20 Heparin Sodium,Porcine 5,000 Unit/Ml Vial SUBCUT 5,000 unit Q12H [facility] Administration Ceftriaxone Sodium 1 gm/ 50 mls @ 100 mls/hr 03/14/21 21:00 03/14/21 21:29 Sodium Chloride IV Infused Q24H RASHAD Infusion Lactated Ringer's 1,000 mls @ 100 mls/hr 03/14/21 06:30 03/15/21 04:39 Lr IVCONT 100 mls/hr .Q10H RASHAD Administration Insulin Human Lispro 0 unit 03/14/21 07:30 03/15/21 12:11 Insulin Lispro 100 Unit/Ml 3 Ml Vial SUBCUT 4 unit QIDACHS [facility] Administration Protocol Ondansetron HCl 4 mg 03/14/21 04:19 Ondansetron Hcl 4 Mg/2 Ml Vial IVPUSH Q8H PRN Nausea and Vomiting Prednisone 5 mg 03/14/21 09:00 03/15/21 08:20 Prednisone 5 Mg Tablet PO 5 mg DAILY [facility] Administration Sodium Chloride 3 ml 03/14/21 08:00 03/15/21 08:20 0.9 % Sodium Chloride Flush 3 Ml Syringe IVFLUSH Not Given QSHIFT [facility] Home Medications Medication Instructions Recorded Confirmed Last Taken Type metformin 500 mg tablet 500 mg PO BID 01/18/21 03/14/21 03/13/21 21:00 History aspirin 81 mg PO DAILY 03/14/21 03/14/21 03/13/21 08:00 History Physical Exam Vital Signs: Vital Signs: Last Vital Signs Temp 98.8 F 03/15/21 11:04 Pulse 76 03/15/21 11:04 Resp 22 H 03/15/21 11:04 BP 141/70 H 03/15/21 11:04 Pulse Ox 96 03/15/21 11:04 Body Mass Index 27.2 Const: General: cooperative Orientation/consciousness: patient oriented x3 HENMT: Head: Yes normal to inspection Mouth: Normal oral and palatal mucosa present Eyes: General: appearance normal, both eyes and all related structures Resp: Effort & Inspection: normal respiratory effort Cardio: Rate: regular rate Rhythm: regular rhythm GI: Palpation (GI): Soft to palpation and Tenderness to palpation present (GI) suprapubicly Percussion: Yes normal to percussion Skin: General skin exam: no rashes or lesions noted Neuro: General: patient oriented x3 Extrem: General: Yes normal to inspection Results Labs CBC & Chem 7: 03/15/21 04:12 03/15/21 04:12 Labs: Short CBC 03/15/21 Range/Units 04:12 WBC 5.1 (4.8-10.8) X10*3/uL Hgb 11.0 L D (14.0-18.0) g/dl Hct 33.5 L D (42-52) % Plt Count 51 L (160-400) X10*3/uL BMP 03/15/21 04:12 Sodium 137 Potassium 3.5 Chloride 105 Carbon Dioxide 23 BUN 13 Creatinine 0.86 Calcium 7.9 L D Microbiology Microbiology Results: Microbiology 03/13/21 20:24 Blood - Venous Blood Culture - Preliminary Gram negative briana 03/13/21 20:19 Blood - Venous Blood Culture - Preliminary No growth after 24 hours. Assessment and Plan (1) Sepsis: Problem details: He has urinary source of sepsis He has possible BPH He has culture results pending blood Status: Acute Continue Ceftriaxone,no obstruction seen Would give 10-14 d po Ceftin ,obtain sensitivities next day Renal u/s (2) TALA (acute kidney injury): Status: Acute (3) Urinary tract infection: Qualifiers: Hematuria presence: without hematuria Urinary tract infection type: acute cystitis Qualified Code(s): N30.00 - Acute cystitis without hematuria Status: Acute
--- NOTE | 2021-03-15 14:16 | PM.DS ---
DS: Providers Provider Date of Service: 03/23/21 Date of admission: 03/14/21 01:03 Primary care physician: Mode Thompson MD Consults: 03/15/21 10:13 Consult to Infectious Diseases Routine Consulting Provider: Lesley Butler Reason for consultation: bacteremia DS: Diagnosis Discharge Diagnosis (1) Sepsis: Status: Resolved Problem details: He has urinary source of sepsis He has possible BPH He has culture results pending blood (2) Asbestosis: (3) Urinary tract infection: Status: Acute (4) Weakness: Status: Resolved (5) TALA (acute kidney injury): Status: Resolved DS: Medications Discharge Medications Home Medications: Home Medications Medication Instructions Recorded Confirmed metformin 500 mg tablet 500 mg PO BID 01/18/21 03/14/21 aspirin 81 mg PO DAILY 03/14/21 03/14/21 Previous Rx's Medication Instructions Recorded prednisone 5 mg tablet 5 mg PO DAILY #30 tab 11/11/20 calcium carbonate 600 mg (1,500 1 tab PO BID 30 Days #60 tab 01/21/21 mg)-vitamin D3 200 unit tablet DS: Summary Hospital Course Hospital Course: 75 year old male with presented with weakness fever with lab finding consistent with sepsis d/t UTI, also had TALA. He was initiated with IVF, IV ceftriaxone and blood and urine cultures sent. His blood culture ultmiately grew gram negative briana 1 out 2. His is responding to IV ceftriaxone as he no longer has fever, feels great, normal WBC. Preliminary reports from Microbilogy indicates Klebsiel which by our antibiogram should be sensitive to Ceftriaxone and therefore Ceftin. His renal function has corrected rapidly back to normal. Time Spent with Patient Time attestation: Total time spent providing and/or coordinating discharge services: Discharge coordination time: Greater than 30 minutes Physical Exam Vital Signs: Vital Signs: Last Vital Signs Temp 98.8 F 03/15/21 11:04 Pulse 76 03/15/21 11:04 Resp 22 H 03/15/21 11:04 BP 141/70 H 03/15/21 11:04 Pulse Ox 96 03/15/21 11:04 Body Mass Index 27.2 DS: Data Data Completed and Pending Labs on day of discharge: Laboratory Results - last 24 hr 03/14/21 03/14/21 03/15/21 16:10 20:30 04:12 WBC 5.1 RBC 3.67 L D Hgb 11.0 L D Hct 33.5 L D MCV 91.3 MCH 30.0 MCHC 32.8 RDW 14.3 Plt Count 51 L MPV 12.8 H Immature Gran % (Auto) 1.4 H Neut % (Auto) 53.8 Lymph % (Auto) 21.3 [place] % (Auto) 22.9 H Eos % (Auto) 0.4 Baso % (Auto) 0.2 Lymph # (Auto) 1.1 L [place] # (Auto) 1.2 Eos # (Auto) 0.0 Baso # (Auto) 0.0 Abs Immat Gran (auto) 0.07 H Absolute Neuts (auto) 2.7 Absolute Nucleated RBC 0.000 Nucleated RBC % (auto) 0.0 Smear Tech's Comments VERIFIED Sodium Potassium Chloride Carbon Dioxide Anion Gap BUN Creatinine Estim Creat Clear Calc Estimated GFR POC Glucose 223 H 163 H Random Glucose Calcium 03/15/21 03/15/21 03/15/21 04:12 07:10 11:04 WBC RBC Hgb Hct MCV MCH MCHC RDW Plt Count MPV Immature Gran % (Auto) Neut % (Auto) Lymph % (Auto) [place] % (Auto) Eos % (Auto) Baso % (Auto) Lymph # (Auto) [place] # (Auto) Eos # (Auto) Baso # (Auto) Abs Immat Gran (auto) Absolute Neuts (auto) Absolute Nucleated RBC Nucleated RBC % (auto) Smear Tech's Comments Sodium 137 Potassium 3.5 Chloride 105 Carbon Dioxide 23 Anion Gap 13 BUN 13 Creatinine 0.86 Estim Creat Clear Calc 67.2 Estimated GFR > 60 POC Glucose 123 H 224 H Random Glucose 129 H D Calcium 7.9 L D Preliminary micro results at discharge 03/13/21 20:24 Blood Culture - Preliminary Blood - Venous Gram negative briana 03/13/21 20:19 Blood Culture - Preliminary Blood - Venous No growth after 24 hours. Discharge Plan Discharge Anticipated Discharge Date/Time: 03/15/21 16:05 Patient Disposition: Home, Self-Care Discharge Diagnosis: Sepsis, bacteremia, UTI. Referrals: Mode Thompson MD [Primary Care Provider] - 1 Week Discharge Medications: New cefuroxime axetil 500 mg tablet 500 mg PO BID 10 Days Qty: 25 RF: 0 Continued prednisone 5 mg tablet 5 mg PO DAILY Qty: 30 RF: 0 calcium carbonate-vitamin D3 600 mg(1,500mg) -200 unit tablet 1 tab PO BID 30 Days Qty: 60 RF: 6 aspirin 81 mg Tablet 81 mg PO DAILY RF: 0 Discharge Orders: Discharge Order (Routine); Ordered 03/15/21 Ordered By: Keagan Perez Diet: advance to usual diet Activity on Discharge: As tolerated Stand Alone Forms: Patient Portal Discharge page Care Plan Goals: Complete resolution of urinary tract infection and bacteremia. Health Concerns: Urinary tract infection with bacteremia. Plan of Treatment: Take cefuroxime as directed and follow up with your primary care doctor within a week call for appointment. Assessment: Sepsis, UTI, renal failure that has resolved. Discharge Date/Time: 03/15/21 17:02
[2021-03-15 16:00] VITALS: BP 130/67; PULSE 77; RESP 16; TEMP 36.6; O2SAT 95
[2021-03-15 16:35] LABS: Glucose, Whole Blood 217 mg/dL (60-115)
== END 2021-03-15 17:02 | disposition home or self-care (01) | DRG 872 ==
LOC: HO.ED 03-14 00:13 → HO.EDOVER 03-14 01:16 → HO.S3 03-14 04:31
PROVIDERS: Admitting Provider Internal Medicine; Emergency Provider Emergency Medicine Emergency Medical Services; PCP Internal Medicine; Visit Provider Internal Medicine
DX: A41.9 Sepsis, unspecified organism (principal); N39.0 Urinary tract infection, site not specified; N17.9 Acute kidney failure, unspecified; N40.0 Benign prostatic hyperplasia without lower urinary tract symptoms; J61 Pneumoconiosis due to asbestos and other mineral fibers; E11.9 Type 2 diabetes mellitus without complications; B96.1 Klebsiella pneumoniae [K. pneumoniae] as the cause of diseases classified elsewhere; E86.0 Dehydration; Z20.822 Contact with and (suspected) exposure to COVID-19; Z87.891 Personal history of nicotine dependence; Z79.82 Long term (current) use of aspirin; Z79.84 Long term (current) use of oral hypoglycemic drugs; Z79.899 Other long term (current) drug therapy
CPT/HCPCS: 0241U; 36415; 70450; 71046; 74176; 80048; 80076; 81001; 82947; 83605; 84484; 85025; 87040; 87077; 87186; 87205; 93005; 96365; 99285; J0696

== ENCOUNTER 2021-05-27 09:01 | Outpatient (REF) | payer MEDICARE, BC, SELFPAY ==
[2021-05-27 09:52] LABS: MANUAL DIFF FLAG NO
[2021-05-27 10:10] LABS: Basophils Percent Auto 0.3 % (0-2); Eosinophils Absolute Auto 0.1 X10*3/uL (0.0-0.4); Hematocrit 39.5 % (42-52); Hemoglobin 12.7 g/dl (14.0-18.0); Imm Gran Abs Auto 0.22 X10*3/uL (0.00-0.03); Imm Gran Pct Auto 3.8 % (0.0-0.4); Lymphocytes Absolute Auto 1.5 X10*3/uL (1.2-4.9); Lymphocytes Percent Auto 26.3 % (20-40); Mean Corpuscular HGB Conc 32.2 g/dl (31.0-36.0); Mean Corpuscular Hemoglobin 29.6 pg (27.0-33.0); Mean Corpuscular Volume 92.1 fL (80-98); Mean Platelet Volume 12.8 fL (9.4-12.4); Monocytes Percent Auto 16.9 % (2-11); Neutrophils Percent Auto 51.7 % (45-73); Red Blood Count 4.29 X10*6/uL (4.60-5.80); Red Cell Distribution Width 14.9 % (11.0-16.0); White Blood Count 5.9 X10*3/uL (4.8-10.8)
[2021-05-27 10:12] LABS: Platelet Count 76 X10*3/uL (160-400)
[2021-05-27 10:17] LABS: Estimated Average Glucose 174 mg/dL; Hemoglobin A1c % 7.7 %
[2021-05-27 10:32] LABS: Anion Gap 13 (12-20); Blood Urea Nitrogen 16 mg/dL (9-16); Calcium 9.6 mg/dL (8.4-10.2); Carbon Dioxide 27 mmol/L (22-29); Chloride 107 mmol/L (96-108); Estimated Glomerular Filt Rate > 60; Glucose Random 181 mg/dL (60-115); Iron 75 mcg/dL (45-160); Percent Iron Saturation 27 % (15-50); Potassium 4.2 mmol/L (3.3-5.1); Sodium 143 mmol/L (135-145); Total Iron Binding Capacity 277 mcg/dL (228-428); Unsaturated Iron Binding 202 ug/dL
[2021-05-27 10:32] LABS: Microalbum/Creatinine Ratio Ur 55.1 ug/mg cr
== END 2021-05-27 09:02 | disposition home or self-care (01) ==
LOC: HO.LAB 09:01
PROVIDERS: PCP Internal Medicine; Visit Provider Internal Medicine
DX: D64.9 Anemia, unspecified (principal); E11.9 Type 2 diabetes mellitus without complications; J61 Pneumoconiosis due to asbestos and other mineral fibers
CPT/HCPCS: 36415; 80048; 82043; 83036; 83540; 85025

== ENCOUNTER 2021-06-18 11:39 | Outpatient (REF) | payer MEDICARE, BC, SELFPAY ==
--- NOTE | ~2021-06-18 | XR_ITS ---
EXAMINATION: XR LUMBOSACRAL SPINE CLINICAL INFORMATION: Sciatica, back pain COMPARISON: CT abdomen and pelvis noncontrast 03/15/2021. TECHNIQUE: Three views of the lumbosacral spine. FINDINGS: Lumbar vertebral bodies are normal in height. There is no vertebral compression, spondylolisthesis, destructive process. Again, there are degenerative disc changes with disc narrowing with large right bulky bridging osteophyte L1-L2 and partially bridging left lateral osteophyte at L3-L4. There is facet degeneration greatest L3-S1. There is some mineralization within the anterior L5-S1. The SI joints and visualized sacrum are unremarkable. XR/XR lumbar spine 2-3V IMPRESSION: 1. Multilevel degenerative disc and degenerative facet changes. 2. No lumbar vertebral compression, spondylolisthesis, destructive process.
== END 2021-06-18 11:40 | disposition home or self-care (01) ==
LOC: HO.LAB 11:39
PROVIDERS: PCP Internal Medicine; Visit Provider Internal Medicine
DX: M54.5 Low back pain (principal)
CPT/HCPCS: 72100

== ENCOUNTER 2021-06-26 14:37 | Emergency (ER) | payer MEDICARE, BC, SELFPAY ==
--- NOTE | 2021-06-26 | ECG_ITS ---
Test Reason : WEAKNESS Blood Pressure : / mmHG Vent. Rate : 085 BPM Atrial Rate : 085 BPM P-R Int : 140 ms QRS Dur : 080 ms QT Int : 374 ms P-R-T Axes : 024 046 052 degrees QTc Int : 445 ms Normal sinus rhythm Normal ECG When compared with ECG of 13-MAR-2021 20:23, No significant change was found Referred By: Generic ED Physician Electronically Signed By:Ayad Nichols
--- NOTE | ~2021-06-26 | XR_ITS ---
EXAMINATION: XR CHEST CLINICAL INFORMATION: Weakness COMPARISON: 03/26/2019 and 03/13/2021 TECHNIQUE: 2 views of the chest were obtained. FINDINGS: Lungs are well expanded and without acute abnormality. No pulmonary edema, consolidation or pleural effusion. No pneumothorax. Chronically thickened pleura of the right hemithorax has a stable appearance compared to 03/26/2019 and 03/13/2021. Thickened pleura and pleural plaques are better shown on prior chest CT exams. Correlate for history of prior asbestos exposure. No overt pleural-based tumor. An azygos fissure is observed in the medial right lung apex cardiac silhouette is normal in size.. The visualized bones are intact. XR/XR chest 2V IMPRESSION: No acute pulmonary disease compared to 03/13/2021.
[2021-06-26 14:59] VITALS: BP 141/85; PULSE 92; RESP 16; TEMP 37.1; O2SAT 94; BMI 27.2
[2021-06-26 16:27] LABS: Basophils Percent Auto 0.2 % (0-2); Eosinophils Percent Auto 0.2 % (0-4); Hematocrit 42.2 % (42-52); Imm Gran Abs Auto 0.36 X10*3/uL (0.00-0.03); Imm Gran Pct Auto 4.3 % (0.0-0.4); Lymphocytes Absolute Auto 1.1 X10*3/uL (1.2-4.9); Lymphocytes Percent Auto 13.4 % (20-40); MANUAL DIFF FLAG SCAN; Mean Corpuscular HGB Conc 33.2 g/dl (31.0-36.0); Mean Corpuscular Hemoglobin 29.7 pg (27.0-33.0); Mean Corpuscular Volume 89.6 fL (80-98); Mean Platelet Volume 11.7 fL (9.4-12.4); Monocytes Absolute Auto 2.4 X10*3/uL (0.1-1.2); Monocytes Percent Auto 28.2 % (2-11); Neutrophils Absolute Auto 4.5 X10*3/uL (2.0-8.3); Neutrophils Percent Auto 53.7 % (45-73); Platelet Count 74 X10*3/uL (160-400); Red Blood Count 4.71 X10*6/uL (4.60-5.80); Red Cell Distribution Width 14.8 % (11.0-16.0); SCAN SMEAR FLAG 1; White Blood Count 8.4 X10*3/uL (4.8-10.8)
[2021-06-26 16:45] LABS: SLIDE REVIEW VERIFIED
--- NOTE | 2021-06-26 16:58 | ED.WEAKNESS ---
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 No urinary symptoms, cough change from baseline, shortness of breath, chest pain, vomiting or diarrhea. Of note, the patient was admitted to this facility in February for UTI with sepsis. Related Data Home Medications Medication Instructions Recorded Confirmed metformin 500 mg tablet 500 mg PO BID 01/18/21 03/14/21 aspirin 81 mg tablet 81 mg PO DAILY 03/14/21 03/14/21 Previous Rx's Medication Instructions Recorded calcium carbonate 600 mg (1,500 1 tab PO BID 30 Days #60 tab 01/21/21 mg)-vitamin D3 200 unit tablet cefuroxime axetil 500 mg tablet 500 mg PO BID 10 Days #25 tab 03/15/21 prednisone 5 mg tablet 5 mg PO DAILY #30 tab 06/07/21 Allergies Allergy/AdvReac Type Severity Reaction Status Date / Time No Known Allergies Allergy Verified 03/13/21 19:47 Review of Systems Review of Systems: Yes all other systems are reviewed and are negative Constitutional: Constitutional: Reports no additional constitutional complaints, Reports body ache(s), Reports chills, Reports fever(s), Denies headache(s) and Reports weakness Eyes: Eyes: Reports no additional eye complaints and Denies change in vision ENT: Reports system reviewed and no additional complaints, except as documented, Denies dizziness, Denies headache(s), Denies nasal congestion, Denies nasal discharge and Denies neck pain Cardiovascular: Cardiovascular: Reports no additional cardiovascular complaints, Denies chest pain, Denies leg edema and Denies dyspnea Respiratory: Respiratory: Reports no additional respiratory complaints, Reports cough (chronic ) and Denies dyspnea Gastrointestinal: Gastrointestinal: Reports no additional gastrointestinal complaints, Denies abdominal pain, Denies diarrhea, Denies nausea and Denies vomiting Genitourinary: Genitourinary: Denies urinary incontinence Musculoskeletal: Musculoskeletal: Reports no additional musculoskeletal complaints, Denies back pain, Denies arthralgias, Denies joint swelling, Denies neck pain, Denies numbness and Denies tingling Integumentary/Breasts: Skin/Breast: Reports system reviewed and no additional complaints, except as docu and Denies rash Neurologic: Reports system reviewed and no additional complaints, except as documented, Denies Abnormal speech present, Denies dizziness, Denies headache(s), Denies numbness, Denies tingling and Reports weakness PMFSH Past Medical History Attestation statement: The following information was validated with the patient. Source: old records reviewed and nursing notes reviewed Medical History Asbestosis Asbestosis Chronic cough Prediabetes Sciatica Social History Social History Household Members: Family Housing: House Do you presently have visiting nurse or other home services: No Alcohol intake: never Smoked in Last 30 Days: No Use of substances other than those prescribed or required for medical reasons: No Advance Directives: No Advance Directives Information Provided: No service: Yes Current occupational status: retired Physical Exam Vital Signs: Vital Signs: Last Vital Signs Temp 98.8 F 06/26/21 14:59 Pulse 92 06/26/21 14:59 Resp 16 06/26/21 14:59 BP 141/85 H 06/26/21 14:59 Pulse Ox 94 06/26/21 14:59 Body Mass Index 27.2 Const: General: cooperative, healthy appearing, comfortable and no acute distress Orientation/consciousness: patient oriented x3 Limitations: no limitations HENMT: Head: Yes normal to inspection Ears: hearing grossly normal bilaterally General nose exam: Normal external nose present Face and sinus: Yes normal facial exam Mouth: Normal oral and palatal mucosa present Throat: Yes posterior oropharynx normal Eyes: General: appearance normal, both eyes and all related structures Pupils: Equal, round and reactive pupils present Neck: Neck: Yes normal visual inspection Chest: Chest palpation & inspection: normal inspection of the chest Resp: Effort & Inspection: normal respiratory effort Auscultation: clear to auscultation bilaterally Cardio: Rate: regular rate Rhythm: regular rhythm Peripheral pulses: Peripheral pulses 2+ throughout GI: Inspection: Yes normal to inspection Palpation (GI): Soft to palpation and nontender Auscultation: normal bowel sounds Back/Spine/Pelvis: Thoracic/Lumbar Spine: thoracic and lumbar spine normal to inspection Skin: General skin exam: no rashes or lesions noted Neuro: General: patient oriented x3, no focal motor deficits and normal sensation to monofilament Cranial nerves: Yes Equal, round and reactive pupils present Cognition (Neuro): normal cognition Speech: No Abnormal speech present Gait exam (Neuro): Normal gait present Motor exam (neuro): 5/5 motor strength present throughout Extrem: General: Yes normal to inspection Course Course Course Narrative: 76-year-old male here with complaints of generalized weakness and fever with max temp of 101 degrees with chills and body aches. Hemodynamically stable on arrival. Of note, admit and February of 2000 and for UTI with sepsis. Will need labs, EKG, chest x-ray, UA. 1820-labs show thrombocytopenia which is unchanged from previous. No falls or injuries. All other labs unremarkable. Chest x-ray shows no acute finding. UA is pending. 2029-UA shows specific gravity greater than 1000 glucose urine. Serum glucose 279 with no evidence of DKA. No no ketones in the urine. Urine is concentrated and is positive for nitrates but there is no evidence of WBC or RBC in the urine. Not likely UTI. Will send urine culture. Figueroa give NSB. Patient afebrile here, ambulatory, tolerating PO. At this point I do not believe the patient requires admission. I discussed this with his son and with the patient himself and they agree that the patient feels safe going home. Can self-monitor and return for any worsening symptoms. Reviewed worrisome signs and symptoms of when to return to the emergency department. Comfortable discharge home. MDM - Weakness Medical Records Attestation: I reviewed the patient's medical records. Lab Data Attestation: I reviewed the patient's lab results. Result diagrams: 06/26/21 16:01 06/26/21 16:01 Labs: Lab Results 06/26/21 06/26/21 06/26/21 Range/Units 16:01 16:01 17:04 WBC 8.4 (4.8-10.8) X10*3/uL RBC 4.71 (4.60-5.80) X10*6/uL Hgb 14.0 (14.0-18.0) g/dl Hct 42.2 (42-52) % MCV 89.6 (80-98) fL MCH 29.7 (27.0-33.0) pg MCHC 33.2 (31.0-36.0) g/dl RDW 14.8 (11.0-16.0) % Plt Count 74 L (160-400) X10*3/uL MPV 11.7 (9.4-12.4) fL Immature Gran % (Auto) 4.3 H (0.0-0.4) % Neut % (Auto) 53.7 (45-73) % Lymph % (Auto) 13.4 L (20-40) % Anderson % (Auto) 28.2 H (2-11) % Eos % (Auto) 0.2 (0-4) % Baso % (Auto) 0.2 (0-2) % Lymph # (Auto) 1.1 L (1.2-4.9) X10*3/uL Anderson # (Auto) 2.4 H (0.1-1.2) X10*3/uL Eos # (Auto) 0.0 (0.0-0.4) X10*3/uL Baso # (Auto) 0.0 (0.0-0.2) X10*3/uL Abs Immat Gran (auto) 0.36 H (0.00-0.03) X10*3/uL Absolute Neuts (auto) 4.5 (2.0-8.3) X10*3/uL Absolute Nucleated RBC 0.000 (0.0-0.012) X10*3/uL Nucleated RBC % (auto) 0.0 (0.0-0.2) /100WBC Smear Tech's Comments VERIFIED Sodium 139 (135-145) mmol/L Potassium 4.4 (3.3-5.1) mmol/L Chloride 104 (96-108) mmol/L Carbon Dioxide 24 (22-29) mmol/L Anion Gap 15 (12-20) BUN 17 H (9-16) mg/dL Creatinine 1.09 (0.5-1.4) mg/dL Estim Creat Clear Calc 52.2 Estimated GFR > 60 Random Glucose 279 H D (60-115) mg/dL Lactic Acid (0.5-2.0) mmol/L Calcium 8.9 D (8.4-10.2) mg/dL Magnesium 2.0 (1.6-2.6) mg/dL Total Bilirubin 1.1 H (0.0-1.0) mg/dL Direct Bilirubin 0.4 (0.0-0.5) mg/dL AST 28 (5-37) U/L ALT 25 (0-40) U/L Alkaline Phosphatase 81 D (39-117) U/L Troponin I High Sens (<3.5-35.0) ng/L Total Protein 7.3 (6.5-8.0) g/dL Albumin 4.1 (3.5-5.0) g/dL Urine Color Urine Appearance Urine pH (5.0-8.0) Ur Specific [place] (1.005-1.025) Urine Protein (NEG-TRACE) MG/DL Urine Glucose (UA) (NEG) MG/DL Urine Ketones (NEG) MG/DL Urine Blood (NEG) Urine Nitrite (NEG) Ur Leukocyte Esterase (NEG) Urine RBC (0) /HPF Urine WBC (0-4) /HPF Ur Squamous Epith Cells /LPF Urine Bacteria /LPF Coronavirus (PCR) (Negative) Influenza Type A (PCR) (Negative) Influenza Type B (PCR) (Negative) RSV RNA Qual (PCR) (Negative) 06/26/21 06/26/21 06/26/21 Range/Units 17:04 17:04 19:09 WBC (4.8-10.8) X10*3/uL RBC (4.60-5.80) X10*6/uL Hgb (14.0-18.0) g/dl Hct (42-52) % MCV (80-98) fL MCH (27.0-33.0) pg MCHC (31.0-36.0) g/dl RDW (11.0-16.0) % Plt Count (160-400) X10*3/uL MPV (9.4-12.4) fL Immature Gran % (Auto) (0.0-0.4) % Neut % (Auto) (45-73) % Lymph % (Auto) (20-40) % Anderson % (Auto) (2-11) % Eos % (Auto) (0-4) % Baso % (Auto) (0-2) % Lymph # (Auto) (1.2-4.9) X10*3/uL Anderson # (Auto) (0.1-1.2) X10*3/uL Eos # (Auto) (0.0-0.4) X10*3/uL Baso # (Auto) (0.0-0.2) X10*3/uL Abs Immat Gran (auto) (0.00-0.03) X10*3/uL Absolute Neuts (auto) (2.0-8.3) X10*3/uL Absolute Nucleated RBC (0.0-0.012) X10*3/uL Nucleated RBC % (auto) (0.0-0.2) /100WBC Smear Tech's Comments Sodium (135-145) mmol/L Potassium (3.3-5.1) mmol/L Chloride (96-108) mmol/L Carbon Dioxide (22-29) mmol/L Anion Gap (12-20) BUN (9-16) mg/dL Creatinine (0.5-1.4) mg/dL Estim Creat Clear Calc Estimated GFR Random Glucose (60-115) mg/dL Lactic Acid 2.0 (0.5-2.0) mmol/L Calcium (8.4-10.2) mg/dL Magnesium (1.6-2.6) mg/dL Total Bilirubin (0.0-1.0) mg/dL Direct Bilirubin (0.0-0.5) mg/dL AST (5-37) U/L ALT (0-40) U/L Alkaline Phosphatase (39-117) U/L Troponin I High Sens 4.2 (<3.5-35.0) ng/L Total Protein (6.5-8.0) g/dL Albumin (3.5-5.0) g/dL Urine Color Urine Appearance Urine pH (5.0-8.0) Ur Specific [place] (1.005-1.025) Urine Protein (NEG-TRACE) MG/DL Urine Glucose (UA) (NEG) MG/DL Urine Ketones (NEG) MG/DL Urine Blood (NEG) Urine Nitrite (NEG) Ur Leukocyte Esterase (NEG) Urine RBC (0) /HPF Urine WBC (0-4) /HPF Ur Squamous Epith Cells /LPF Urine Bacteria /LPF Coronavirus (PCR) NEGATIVE (Negative) Influenza Type A (PCR) NEGATIVE (Negative) Influenza Type B (PCR) NEGATIVE (Negative) RSV RNA Qual (PCR) NEGATIVE (Negative) 06/26/21 Range/Units 19:10 WBC (4.8-10.8) X10*3/uL RBC (4.60-5.80) X10*6/uL Hgb (14.0-18.0) g/dl Hct (42-52) % MCV (80-98) fL MCH (27.0-33.0) pg MCHC (31.0-36.0) g/dl RDW (11.0-16.0) % Plt Count (160-400) X10*3/uL MPV (9.4-12.4) fL Immature Gran % (Auto) (0.0-0.4) % Neut % (Auto) (45-73) % Lymph % (Auto) (20-40) % Anderson % (Auto) (2-11) % Eos % (Auto) (0-4) % Baso % (Auto) (0-2) % Lymph # (Auto) (1.2-4.9) X10*3/uL Anderson # (Auto) (0.1-1.2) X10*3/uL Eos # (Auto) (0.0-0.4) X10*3/uL Baso # (Auto) (0.0-0.2) X10*3/uL Abs Immat Gran (auto) (0.00-0.03) X10*3/uL Absolute Neuts (auto) (2.0-8.3) X10*3/uL Absolute Nucleated RBC (0.0-0.012) X10*3/uL Nucleated RBC % (auto) (0.0-0.2) /100WBC Smear Tech's Comments Sodium (135-145) mmol/L Potassium (3.3-5.1) mmol/L Chloride (96-108) mmol/L Carbon Dioxide (22-29) mmol/L Anion Gap (12-20) BUN (9-16) mg/dL Creatinine (0.5-1.4) mg/dL Estim Creat Clear Calc Estimated GFR Random Glucose (60-115) mg/dL Lactic Acid (0.5-2.0) mmol/L Calcium (8.4-10.2) mg/dL Magnesium (1.6-2.6) mg/dL Total Bilirubin (0.0-1.0) mg/dL Direct Bilirubin (0.0-0.5) mg/dL AST (5-37) U/L ALT (0-40) U/L Alkaline Phosphatase (39-117) U/L Troponin I High Sens (<3.5-35.0) ng/L Total Protein (6.5-8.0) g/dL Albumin (3.5-5.0) g/dL Urine Color YELLOW Urine Appearance HAZY Urine pH 6.0 (5.0-8.0) Ur Specific [place] >= 1.030 H (1.005-1.025) Urine Protein TRACE (NEG-TRACE) MG/DL Urine Glucose (UA) >=1000 H (NEG) MG/DL Urine Ketones NEG (NEG) MG/DL Urine Blood TRACE (NEG) Urine Nitrite POS H (NEG) Ur Leukocyte Esterase NEG (NEG) Urine RBC 0-2 (0) /HPF Urine WBC 0 (0-4) /HPF Ur Squamous Epith Cells NONE /LPF Urine Bacteria 3+ /LPF Coronavirus (PCR) (Negative) Influenza Type A (PCR) (Negative) Influenza Type B (PCR) (Negative) RSV RNA Qual (PCR) (Negative) Imaging Data Chest x-ray: Attestation: I personally reviewed and interpreted this imaging study as follows: Radiologist's impression: FINDINGS: Lungs are well expanded and without acute abnormality. No pulmonary edema, consolidation or pleural effusion. No pneumothorax. Chronically thickened pleura of the right hemithorax has a stable appearance compared to 03/26/2019 and 03/13/2021. Thickened pleura and pleural plaques are better shown on prior chest CT exams. Correlate for history of prior asbestos exposure. No overt pleural-based tumor. An azygos fissure is observed in the medial right lung apex cardiac silhouette is normal in size.. The visualized bones are intact. XR/XR chest 2V IMPRESSION: No acute pulmonary disease compared to 03/13/2021. ECG Data Attestation: I personally reviewed and interpreted this ECG as follows: ECG interpretation date: 06/26/21 ECG interpretation time: 15:20 Interpretation: Normal sinus rhythm with a rate of 85, normal IA, normal QRS, normal QT Discharge Plan Discharge Clinical Impression: Dehydration, Weakness Patient Disposition: Home, Self-Care Instructions: Weakness (ED) Additional Instructions: Your labs all look unremarkable Urine shows mild dehydration but no infection. We did send urine culture and will call you if the results are positive X-ray shows no pneumonia. COVID screen negative Increase fluids, rest Return for worsening weakness, vomiting, chest pain, fever which is not respond to Tylenol or Motrin Prescriptions: No Action calcium carbonate-vitamin D3 600 mg(1,500mg) -200 unit tablet 1 tab PO BID 30 Days Qty: 60 RF: 6 prednisone 5 mg tablet 5 mg PO DAILY Qty: 30 RF: 0 aspirin 81 mg Tablet 81 mg PO DAILY RF: 0 cefuroxime axetil 500 mg tablet 500 mg PO BID 10 Days Qty: 25 RF: 0 Referrals: Mode Thompson MD [Primary Care Provider] - 2 days
[2021-06-26 17:06] LABS: Anion Gap 15 (12-20); Blood Urea Nitrogen 17 mg/dL (9-16); Calcium 8.9 mg/dL (8.4-10.2); Carbon Dioxide 24 mmol/L (22-29); Chloride 104 mmol/L (96-108); Creatinine Clr Calc Pharmacy 52.2; Estimated Glomerular Filt Rate > 60; Glucose Random 279 mg/dL (60-115); Potassium 4.4 mmol/L (3.3-5.1); Sodium 139 mmol/L (135-145)
[2021-06-26 18:00] LABS: Alanine Aminotransferase 25 U/L (0-40); Albumin Level 4.1 g/dL (3.5-5.0); Alkaline Phosphatase 81 U/L (39-117); Aspartate Amino Transferase 28 U/L (5-37); Bilirubin Direct 0.4 mg/dL (0.0-0.5); Bilirubin Total 1.1 mg/dL (0.0-1.0); Total Protein 7.3 g/dL (6.5-8.0)
[2021-06-26 18:06] LABS: Troponin-I High Sensitivity 4.2 ng/L (<3.5-35.0)
[2021-06-26 19:22] LABS: Appearance Urine HAZY; Color Urine YELLOW; Glucose Urine UA >=1000 MG/DL (NEG); Leukocyte Esterase Urine NEG (NEG); Nitrite Urine POS (NEG); Specific Gravity - Urine >= 1.030 (1.005-1.025); UACC Culture Trigger YES; Urine Blood TRACE (NEG); Urine Ketones NEG (NEG); Urine Protein TRACE MG/DL (NEG-TRACE)
[2021-06-26 19:45] LABS: Bacteria Urine 3+ /LPF; RBC Urine 0-2 /HPF (0); WBC Urine 0 /HPF (0-4)
[2021-06-26 19:53] LABS: Influenza A PCR NEGATIVE (Negative); Influenza B PCR NEGATIVE (Negative); Resp Syncy Virus RNA Qual PCR NEGATIVE (Negative); SARS COV2 PCR INHOUSE NEGATIVE (Negative)
[2021-06-26 20:00] VITALS: BP 146/85; PULSE 90; RESP 15; O2SAT 95
[2021-06-26] MEDS: 0.9 % Sodium Chloride 1,000 ML 999 ML IV (20:38)
== END 2021-06-27 03:05 | disposition home or self-care (01) ==
PROVIDERS: Nurse Practitioner Family; Emergency Provider Emergency Medicine Emergency Medical Services; PCP Internal Medicine
DX: E86.0 Dehydration (principal); R53.1 Weakness; Z20.822 Contact with and (suspected) exposure to COVID-19
CPT/HCPCS: 0241U; 36415; 71046; 80048; 80076; 81001; 83605; 83735; 84484; 85025; 87040; 87086; 87088; 87186; 93005; 96360; 99284; 99285

== ENCOUNTER 2021-07-22 12:39 | Outpatient (REF) | payer MEDICARE, BC, SELFPAY ==
--- NOTE | ~2021-07-22 | MR_ITS ---
EXAMINATION: MR LUMBAR SPINE WITHOUT CONTRAST CLINICAL INFORMATION: Low back pain and radiculopathy. COMPARISON: X-ray lumbar spine from 06/18/2021. TECHNIQUE: MRI of the lumbar spine was obtained using routine sequences without contrast. FINDINGS: VERTEBRAL BODIES AND PARASPINAL STRUCTURES: The L5 vertebra is transitional and partially sacralized. There are chronic fatty marrow degenerative endplate changes with a retrosubluxation and moderate to severe disc space narrowing at the L3-L4 level. Mildly reduced intradiscal signal noted elsewhere throughout the lumbar spine. Disc desiccation evident at the L5-S1 level. There are no compression fractures. The paraspinal soft tissues are unremarkable. The imaged bony pelvis is normal. Small right renal cyst noted for which no further imaging follow-up is warranted. CONUS MEDULLARIS AND CAUDA EQUINA: Normal, terminating at the level of L1. No lower cord signal abnormality is seen. The cauda equina nerve roots are normal. SPINAL LEVELS: L1-L2: Bulky right lateral endplate spurring and disc bulge with mild right foraminal encroachment and suspected mass effect upon the extraforaminal right L1 nerve root. No central canal stenosis. L2-L3: Broad-based right foraminal disc protrusion impresses upon the right L2 nerve root. Mild facet arthropathy. No central canal stenosis. L3-L4: Severe degenerative disc disease with a diffuse disc bulge and hypertrophic facet arthropathy resulting in mild to moderate central canal stenosis. Mild retrosubluxation. Broad-based disc bulge and right lateral recess disc extrusion migrating inferiorly with compression of the right L4 nerve root. Moderate right foraminal narrowing with facet spurring mildly distorting the exiting right L3 nerve root. Mild left foraminal narrowing. L4-L5: Shallow right paracentral disc protrusion mildly impressing upon the thecal sac. Moderate to severe facet arthropathy, more so on the right side and mild central canal stenosis. Mild foraminal narrowing. L5-S1: No central canal stenosis or foraminal narrowing. No focal disc protrusion. MR/MR lumbar spine wo con IMPRESSION: Transitional lumbosacral junction and partial sacralization of L5. If future surgery or a percutaneous procedure is contemplated, recommend correlation with plain film evaluation in order to ensure correct enumeration. Severe degenerative disc disease at the L3-L4 level with a mild retrosubluxation of hypertrophic facet arthropathy contributing to mild to moderate central canal stenosis. Right lateral recess disc extrusion with compression of the right L4 nerve root. Moderate right foraminal narrowing with facet spurring mildly distorting the right L3 nerve root. Bulky right lateral endplate spurring at the L1-L2 level with mass effect upon the extraforaminal right L1 nerve root. Broad-based right foraminal disc protrusion with mass effect upon the right L2 nerve root at the L2-L3 level. Shallow right paracentral disc protrusion at the L4-L5 level. Moderate to severe facet arthropathy and mild central canal stenosis.
== END 2021-07-22 12:40 | disposition home or self-care (01) ==
LOC: HO.MRI 12:39
PROVIDERS: PCP Internal Medicine; Visit Provider Internal Medicine
DX: M54.16 Radiculopathy, lumbar region (principal)
CPT/HCPCS: 72148

== ENCOUNTER 2021-08-20 11:08 | Outpatient (REF) | payer MEDICARE, BC, SELFPAY ==
[2021-08-20 12:08] LABS: Anion Gap 11 (12-20); Blood Urea Nitrogen 13 mg/dL (9-16); Calcium 9.6 mg/dL (8.4-10.2); Carbon Dioxide 31 mmol/L (22-29); Chloride 104 mmol/L (96-108); Estimated Glomerular Filt Rate 56; Potassium 4.4 mmol/L (3.3-5.1); Sodium 142 mmol/L (135-145)
[2021-08-20 12:41] LABS: Appearance Urine CLEAR; Color Urine YELLOW; Glucose Urine UA 500 MG/DL (NEG); Leukocyte Esterase Urine NEG (NEG); Nitrite Urine NEG (NEG); Specific Gravity - Urine 1.015 (1.005-1.025); Urine Blood NEG (NEG); Urine Ketones NEG (NEG); Urine Protein TRACE MG/DL (NEG-TRACE)
[2021-08-20 13:51] LABS: Creatinine Urine 118.35 mg/dL
[2021-08-20 13:59] LABS: Renal w Reflex Lab Use Only Order verified
== END 2021-08-20 11:09 | disposition home or self-care (01) ==
LOC: HO.LAB 11:08
PROVIDERS: PCP Internal Medicine; Visit Provider Internal Medicine Nephrology
DX: N28.1 Cyst of kidney, acquired (principal)
CPT/HCPCS: 36415; 80051; 81003; 82043; 82310; 82565; 84100; 84520

== ENCOUNTER 2021-08-31 14:00 | Outpatient (RCR) | payer MEDICARE, BC, SELFPAY ==
--- NOTE | 2021-07-29 15:34 | MHC.PT.EP ---
[facility] [place] Office [place] Office [place] Office [address] [phone] F: [phone] F: [phone] F: [phone] F: [phone] Physical Therapy Plan of Care Date of Evaluation: Date of Surgery: n/a Diagnosis: RIGHT SCIATICA PAIN Assessment: Pt is a pleasant 76 yo male with increasing sciatica symptoms in right LE over the last the two months, Upon exam patient demonstrates decreased LE ROM, altered posture and positioning, altered gait pattern and increased pain. Functional limitations include decreased ability to perform transfers, lifting, reaching, bending and pushing and pulling. He reports decreased ability to assist with care tasks, decreased ability to perform homemaking tasks, driving and community activities. He is a good candidate for PT to address deficits and return to PLOF. Frequency and Duration: The patient will be seen 2 x week for 4 weeks Short Term Goals: Initate HEP and self management of symptoms in 2 weeks Residential Goals: To be independent with HEP and self management of symptoms in 4 weeks To demonstrate full painfree LE ROM in 4 weeks To ambulate without assistive device in 4 weeks with pain no greater than 2/10 with ambulating 30 mins or more Treatment Plan: Modalities to reduce pain, spasms and effusion. Manual therapy to restore motion and function. Therapeutic exercise to improve strength and flexibility. Neuromuscular re-education for posture and balance. Therapeutic activities to return to functional activities of daily living. Electronically signed by: Ciara Max PT, DPT Please sign and return to therapist. Thank you for your referral.
--- NOTE | 2021-09-16 08:43 | MHC.PT.DC ---
[facility] [place] Office [place] Office [place] Office [address] [phone] F: [phone] F: [phone] F: [phone] F: [phone] Physical Therapy Discharge Report Diagnosis: RIGHT SCIATICA PAIN Date of Surgery: n/a Date of Evaluation: 07/29/21 Date of Discharge: 09/02/21 Treatments to Date: 8 Cancellations to Date: 0 No Shows to Date: 0 Discharge Status: Achieved Goals Improved Function Independent with HEP Discharge Summary: Ace has continued to progress with exercises with no increase in leg or back pain. His sciatica type symptoms have centralized and he reports decreased frequency and intensity of symptoms. Pt able to complete HEP without cuing for exercises. Pt feels confident in managing HEP and activities at home, he is DCed at this time. Electronically signed by: Ciara Max PT, DPT Please sign and return to therapist. Thank you for your referral.
== END 2021-09-16 08:55 | disposition home or self-care (01) ==
LOC: HO.PT 14:00
PROVIDERS: PCP Internal Medicine; Visit Provider Internal Medicine
DX: M54.31 Sciatica, right side (principal)
CPT/HCPCS: 97110; 97161; 97530

== ENCOUNTER 2021-11-25 09:03 | Outpatient (REF) | payer MEDICARE, BC, SELFPAY ==
--- NOTE | 2021-11-25 17:18 | PFT_ITS ---
Forced vital capacity is slightly decreased. FEV1, QUI73-44 are normal. MVV is moderately decreased. Postbronchodilator therapy, there is a small, but significant improvement in [id number] and MVV. Lung volumes, total lung capacity is 64 and residual volume 57, both moderately decreased. Diffusion capacity is markedly decreased. CONCLUSION: Moderately severe restrictive pulmonary disorder. No obstructive airway disorder. However, a positive response to bronchodilator therapy as reflected by improved [id number] and MVV may indicate very mild degree of obstructive component. For this, clinical correlation is recommended. Sergio Sexton MD MSB/MODL / [id number]
== END 2021-11-25 09:04 | disposition home or self-care (01) ==
LOC: HO.RESP 09:03
PROVIDERS: PCP Internal Medicine; Visit Provider Internal Medicine Pulmonary Disease
DX: J61 Pneumoconiosis due to asbestos and other mineral fibers (principal)
CPT/HCPCS: 94060; 94727; 94729

== ENCOUNTER → 2021-11-26 11:06 | Outpatient (BNVA) | payer MEDICARE, BC, SELFPAY | PROVIDERS: PCP Internal Medicine; Visit Provider Internal Medicine Pulmonary Disease | DX: J61 Pneumoconiosis due to asbestos and other mineral fibers (principal); R05.9 Cough, unspecified | CPT/HCPCS: Q3014 ==

== ENCOUNTER 2022-03-18 07:36 | Outpatient (REF) | payer MEDICARE, BC, SELFPAY ==
[2022-03-18 07:48] LABS: MANUAL DIFF FLAG NO
[2022-03-18 08:03] LABS: Basophils Percent Auto 0.1 % (0-2); Eosinophils Percent Auto 0.5 % (0-4); Hematocrit 40.4 % (42.0-52.0); Hemoglobin 13.4 g/dl (14.0-18.0); Imm Gran Abs Auto 0.23 X10*3/uL (0.00-0.03); Imm Gran Pct Auto 3.1 % (0.0-0.4); Lymphocytes Absolute Auto 2.1 X10*3/uL (1.2-4.9); Lymphocytes Percent Auto 28.3 % (20-40); Mean Corpuscular HGB Conc 33.2 g/dl (31.0-36.0); Mean Corpuscular Hemoglobin 29.8 pg (27.0-33.0); Mean Platelet Volume 12.2 fL (9.4-12.4); Monocytes Absolute Auto 1.2 X10*3/uL (0.1-1.2); Monocytes Percent Auto 16.4 % (2-11); Neutrophils Absolute Auto 3.8 x10*3/uL (2.0-8.3); Neutrophils Percent Auto 51.6 % (45-73); Platelet Count 72 X10*3/uL (160-400); Red Blood Count 4.49 X10*6/uL (4.60-5.80); Red Cell Distribution Width 14.6 % (11.0-16.0); White Blood Count 7.3 X10*3/uL (4.8-10.8)
[2022-03-18 08:17] LABS: Estimated Average Glucose 194 mg/dL; Hemoglobin A1c % 8.4 %
[2022-03-18 08:35] LABS: Alanine Aminotransferase 19 U/L (0-40); Albumin Level 4.3 g/dL (3.5-5.0); Alkaline Phosphatase 72 U/L (39-117); Anion Gap 12 (12-20); Aspartate Amino Transferase 20 U/L (5-37); Bilirubin Total 0.8 mg/dL (0.0-1.0); Blood Urea Nitrogen 18 mg/dL (9-16); Calcium 9.9 mg/dL (8.4-10.2); Carbon Dioxide 29 mmol/L (22-29); Chloride 103 mmol/L (96-108); Cholesterol 159 mg/dL; Estimated Glomerular Filt Rate 56; Glucose Fasting 175 mg/dL (60-99); HDL Cholesterol 27 mg/dL; LDL Cholesterol Calculated 85 mg/dl; Potassium 3.9 mmol/L (3.3-5.1); Sodium 140 mmol/L (135-145); Total Protein 7.3 g/dL (6.5-8.0); Triglycerides 236 mg/dL
[2022-03-18 08:35] LABS: Creatinine Urine 164.12 mg/dL; Microalbum/Creatinine Ratio Ur 24.3 ug/mg cr
== END 2022-03-18 07:37 | disposition home or self-care (01) ==
LOC: HO.LAB 07:36
PROVIDERS: PCP Internal Medicine; Visit Provider Internal Medicine
DX: D64.9 Anemia, unspecified (principal); E11.9 Type 2 diabetes mellitus without complications; N18.9 Chronic kidney disease, unspecified
CPT/HCPCS: 36415; 80053; 80061; 82043; 83036; 85025

== ENCOUNTER 2022-04-15 07:19 | Outpatient (REF) | payer MEDICARE, BC, SELFPAY ==
[2022-04-15 08:27] LABS: Estimated Average Glucose 192 mg/dL; Hemoglobin A1c % 8.3 %
[2022-04-15 08:42] LABS: Anion Gap 15 (12-20); Blood Urea Nitrogen 15 mg/dL (9-16); Calcium 9.7 mg/dL (8.4-10.2); Carbon Dioxide 27 mmol/L (22-29); Chloride 101 mmol/L (96-108); Estimated Glomerular Filt Rate 55; Glucose Random 186 mg/dL (60-115); Potassium 3.7 mmol/L (3.3-5.1); Sodium 139 mmol/L (135-145)
== END 2022-04-15 07:20 | disposition home or self-care (01) ==
LOC: HO.LAB 07:19
PROVIDERS: PCP Internal Medicine; Visit Provider Internal Medicine
DX: E11.9 Type 2 diabetes mellitus without complications (principal)
CPT/HCPCS: 36415; 80048; 83036

== ENCOUNTER 2022-05-27 09:16 | Outpatient (REF) | payer MEDICARE, BC, SELFPAY ==
--- NOTE | ~2022-05-27 | CT_ITS ---
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 COMPARISON: CT chest 05/05/2020. TECHNIQUE: Multidetector volumetric CT imaging of the chest was done. Axial MIP volume rendering provided. Sagittal and coronal reformatted images were obtained. This CT examination was performed using dose optimization techniques as appropriate, variously including the following: *Automated exposure control *Adjustment of mA and/or kV according to patient size (this includes techniques or standardized protocols for targeted exams where dose is matched to indication/reason for exam; i.e. extremities or head) *Use of iterative reconstruction technique DLP: 178 mGy-cm FINDINGS: APPRENTICE INSTRUMENT TECHNICIAN: Well-inflated lungs. LUNGS: The lungs are well expanded and clear of acute pneumonic process. There is subpleural reticular stranding in the right lower lobe, likely chronic interstitial changes. A few ill-defined 4 mm opacities/nodules are seen in the right upper lobe (axial image 33/4 and 34/4). At least 2 nodules in the right middle lobe adjacent to hemidiaphragm likely pleural plaques 40/7 and 41/7 appears stable No large pulmonary nodule, mass or consolidation is seen. MEDIASTINUM: Heart size and great vessels are normal caliber. There are coronary artery calcifications. No pericardial effusion is seen. PLEURA: There are multiple right-sided pleural plaques with a few calcifications. Also visualized are diaphragmatic pleural plaques. No pleural effusion is seen. There is no pneumothorax. AXILLAE: Small shotty lymph nodes are seen in the axillae. UPPER ABDOMEN: Unremarkable. OSSEOUS STRUCTURES: No aggressive lytic or sclerotic process is seen. CT/CT chest wo con IMPRESSION: Multiple right-sided noncalcified and a few calcified pleural plaques, likely from asbestos exposure. No pleural effusion or pneumothorax. There is subcutaneous pleural reticular stranding throughout the right lower lobe, likely chronic interstitial changes. A few scattered, ill-defined patchy opacities/nodules in the right upper lobe. No change in the CT appearance from previous study 05/05/2020. Fleischner guidelines were followed.
== END 2022-05-27 09:17 | disposition home or self-care (01) ==
LOC: HO.CT 09:16
PROVIDERS: PCP Internal Medicine; Visit Provider Internal Medicine Pulmonary Disease
DX: J61 Pneumoconiosis due to asbestos and other mineral fibers (principal)
CPT/HCPCS: 71250

== ENCOUNTER → 2022-08-04 10:50 | Outpatient (BNVA) | payer MEDICARE, BC, SELFPAY | PROVIDERS: PCP Internal Medicine; Visit Provider Internal Medicine Pulmonary Disease | DX: J61 Pneumoconiosis due to asbestos and other mineral fibers (principal); R05.3 Chronic cough | CPT/HCPCS: 99212 ==

== ENCOUNTER 2022-09-12 07:55 | Outpatient (REF) | payer MEDICARE, BC, SELFPAY ==
[2022-09-12 08:56] LABS: Anion Gap 15 (12-20); Blood Urea Nitrogen 16 mg/dL (9-16); Calcium 9.3 mg/dL (8.4-10.2); Carbon Dioxide 26 mmol/L (22-29); Chloride 107 mmol/L (96-108); Estimated Glomerular Filt Rate > 60; Potassium 4.3 mmol/L (3.3-5.1); Sodium 144 mmol/L (135-145)
[2022-09-12 09:26] LABS: Appearance Urine Clear; Color Urine Yellow; Glucose Urine UA Negative (Negative); Leukocyte Esterase Urine Negative (Negative); Nitrite Urine Negative (Negative); PH 5.5 (5.0-9.0); Urine Blood Negative (Negative); Urine Ketones Negative (Negative); Urine Protein Trace mg/dL (Neg-Trace)
[2022-09-12 09:29] LABS: Bacteria Urine None Seen (None Seen); Hyaline Casts Urine 0-2 /LPF (0-2); RBC Urine 0-2 /HPF (0-2); Squamous Epithelial Cell Urine 0-2 /HPF (0-2); WBC Urine 0-5 /HPF (0-5)
[2022-09-12 13:55] LABS: Protein/Creatinine Ratio, Ur 0.16 (<0.2); Total Protein Urine Random 19 mg/dL (<12)
== END 2022-09-12 07:56 | disposition home or self-care (01) ==
LOC: HO.LAB 07:55
PROVIDERS: PCP Internal Medicine; Visit Provider Internal Medicine Nephrology
DX: N28.1 Cyst of kidney, acquired (principal)
CPT/HCPCS: 36415; 80051; 81001; 82310; 82565; 84156; 84520

== ENCOUNTER 2023-06-13 08:21 | Outpatient (REF) | payer MEDICARE, BC, SELFPAY ==
--- NOTE | ~2023-06-13 | XR_ITS ---
EXAMINATION: XR CHEST CLINICAL INFORMATION: Weight loss COMPARISON: None available. TECHNIQUE: 2 views of the chest were obtained. FINDINGS: The lungs are well-expanded and clear of acute pneumonic process. The heart size and pulmonary vascularity is normal. No gross bony abnormality seen XR/XR chest 2V IMPRESSION: Unremarkable chest exam.
[2023-06-13 08:58] LABS: MANUAL DIFF FLAG NO
[2023-06-13 10:33] LABS: Basophils Percent Auto 0.4 % (0-2); Eosinophils Absolute Auto 0.2 X10*3/uL (0.0-0.4); Eosinophils Percent Auto 2.2 % (0-4); Hematocrit 40.7 % (42.0-52.0); Hemoglobin 12.9 g/dl (14.0-18.0); Imm Gran Abs Auto 0.24 X10*3/uL (0.00-0.03); Lymphocytes Absolute Auto 1.6 X10*3/uL (1.2-4.9); Lymphocytes Percent Auto 20.5 % (20-40); Mean Corpuscular HGB Conc 31.7 g/dl (31.0-36.0); Mean Corpuscular Hemoglobin 29.3 pg (27.0-33.0); Mean Corpuscular Volume 92.3 fL (80.0-98.0); Mean Platelet Volume 13.4 fL (9.4-12.4); Monocytes Absolute Auto 1.5 X10*3/uL (0.1-1.2); Monocytes Percent Auto 18.2 % (2-11); Neutrophils Absolute Auto 4.5 x10*3/uL (2.0-8.3); Neutrophils Percent Auto 55.7 % (45-73); Red Blood Count 4.41 X10*6/uL (4.60-5.80); Red Cell Distribution Width 15.1 % (11.0-16.0)
[2023-06-13 10:36] LABS: Platelet Count 77 X10*3/uL (160-400)
[2023-06-13 10:41] LABS: Estimated Average Glucose 103 mg/dL; Hemoglobin A1c % 5.2 %
[2023-06-13 10:48] LABS: Appearance Urine Clear; Color Urine Yellow; Glucose Urine UA Negative (Negative); Leukocyte Esterase Urine Negative (Negative); Nitrite Urine Negative (Negative); PH 5.5 (5.0-9.0); Urine Blood Negative (Negative); Urine Ketones Negative (Negative); Urine Protein Negative (Neg-Trace)
[2023-06-13 10:58] LABS: Alanine Aminotransferase 16 U/L (0-40); Albumin Level 4.1 g/dL (3.5-5.0); Alkaline Phosphatase 64 U/L (39-117); Anion Gap 11 (12-20); Aspartate Amino Transferase 24 U/L (5-37); Bilirubin Total 0.8 mg/dL (0.0-1.0); Blood Urea Nitrogen 17 mg/dL (9-16); Calcium 9.5 mg/dL (8.4-10.2); Carbon Dioxide 27 mmol/L (22-29); Chloride 108 mmol/L (96-108); Cholesterol 147 mg/dL; Estimated Glomerular Filt Rate > 60; Glucose Fasting 93 mg/dL (60-99); HDL Cholesterol 28 mg/dL; LDL Cholesterol Calculated 95 mg/dl; Potassium 4.2 mmol/L (3.3-5.1); Sodium 142 mmol/L (135-145); Total Protein 7.4 g/dL (6.5-8.0); Triglycerides 123 mg/dL
[2023-06-13 11:45] LABS: Creatinine Urine 128.65 mg/dL; Microalbum/Creatinine Ratio Ur 22.5 ug/mg cr
== END 2023-06-13 08:22 | disposition home or self-care (01) ==
LOC: HO.XRAY 08:21
PROVIDERS: PCP Internal Medicine; Visit Provider Internal Medicine
DX: E11.9 Type 2 diabetes mellitus without complications (principal); R63.4 Abnormal weight loss; E78.5 Hyperlipidemia, unspecified
CPT/HCPCS: 36415; 71046; 80053; 80061; 81003; 82043; 83036; 85025

== ENCOUNTER 2023-08-22 12:55 | Outpatient (AMB) | payer MEDICARE, BC, SELFPAY ==
--- NOTE | 2023-08-22 12:57 | A.OFFVIS_ITS ---
Intake Vital Signs 08/22/23 12:58 Height 5 ft 7 in Weight 165 lb 5.547 oz BMI 25.9 BP 138/72 Blood Pressure Location Lt brachial Position Sitting Pulse 82 Pulse Source Doppler Pulse Oximetry (%) 95 Oxygen Delivery Method Room Air Intake Visit Reasons: COPD Allergies No Known Allergies Allergy (Verified 08/22/23 13:02) HPI COPD HPI Details 78-year-old gentleman, former 20 pack-ye ar smoker, quit 30 years prior followed for chronic nonproductive cough and underlying pulmonary asbestosis. His cough has essentially resolved and has not recurred after stopping prednisone. He denies any recent exacerbations. [facility] Medical History (Updated 11/26/21 @ 11:20 by Dave Napier MD) Sciatica Prediabetes Asbestosis Chronic cough Social History Household Members: Family Housing: House Do you presently have visiting nurse or other home services: No Alcohol intake: never service: Yes Current occupational status: retired Review of Systems Const Denies daytime sleepiness, Denies excessive sweating, Denies fatigue, Denies fever(s), Denies lethargy, Denies malaise, Denies night sweats, Denies snoring and Denies weight loss Eyes Denies blurry vision and Denies itchy eyes ENT Denies nasal congestion, Denies post nasal drip, Denies sinus pain, Denies sinus pressure and Denies other ( Thrush) Card Denies chest pain, Denies pedal edema, Denies dyspnea, Reports dyspnea on exertion (Chronic, stable), Denies orthopnea and Denies paroxysmal nocturnal dyspnea Resp Denies cough, Denies hemoptysis, Denies excessive phlegm production, Denies dyspnea, Reports dyspnea on exertion (Chronic, stable), Denies snoring and Denies wheezing GI Denies abdominal pain and Denies heartburn Musc Denies myalgias, Denies arthralgias and Denies joint swelling Skin/Breast Denies rash Neuro Denies memory loss and Denies seizure-like activity Psych Denies abnormal sleep pattern, Denies anxiety and Denies memory loss Endo Denies excessive sweating, Denies fatigue and Denies heat intolerance Ari/Lymph Denies easy bruising Aller/Immun Denies itchy eyes, Denies seasonal rhinorrhea and Denies wheezing Physical Exam Vital Signs: Last Vital Signs Pulse 82 08/22/23 12:58 BP 138/72 08/22/23 12:58 Pulse Ox 95 08/22/23 12:58 Oxygen Delivery Method Room Air 08/22/23 12:58 BMI result Body Mass Index 25.9 Const General: no acute distress and alert Nutritional Appearance: not obese Orientation/consciousness: Other orientation findings ( oriented) HEENT Head: Yes atraumatic Eyes General: appearance normal, both eyes and all related structures Sclerae: sclerae normal EOM: EOMs intact bilaterally Neck Neck: Yes supple Lymphatic: no lymphadenopathy noted Resp Effort & Inspection: normal respiratory effort and no use of accessory muscles Auscultation: clear to auscultation bilaterally Cardio Rate: regular rate Rhythm: regular rhythm Heart sounds: no gallops, no murmurs and no rubs Skin General skin exam: other ( warm) Extrem General: No clubbing, No cyanosis and No edema Assessment & Plan Assessment & Plan (1) Asbestosis: Code(s): J61 - Pneumoconiosis due to asbestos and other mineral fibers Plan: Will obtain CT chest and pulmonary function test for follow-up. Recently essentially asymptomatic. Continue to monitor clinically. Orders: Orders CT chest wo IV con 01/21/24 J61 - Pneumoconiosis due to asbestos and other mineral fibers PFT pulmonary function test 01/21/24 J61 - Pneumoconiosis due to asbestos and other mineral fibers Coding Level of Care Code Est Pt Level 3 (87557) Diagnoses Asbestosis J61
[2023-08-22 12:58] VITALS: BP 138/72; PULSE 82; O2SAT 95; BMI 25.9
== END 2023-08-22 13:37 | disposition home or self-care (01) ==
PROVIDERS: PCP Internal Medicine; Visit Provider Internal Medicine Pulmonary Disease
DX: J61 Pneumoconiosis due to asbestos and other mineral fibers (principal)
CPT/HCPCS: 99213

== ENCOUNTER → 2023-08-22 12:55 | Outpatient (BNVA) | payer MEDICARE, BC, SELFPAY | PROVIDERS: PCP Internal Medicine; Visit Provider Internal Medicine Pulmonary Disease | DX: J61 Pneumoconiosis due to asbestos and other mineral fibers (principal) | CPT/HCPCS: 99212 ==

== ENCOUNTER 2023-09-19 11:16 | Outpatient (REF) | payer MEDICARE, BC, SELFPAY ==
[2023-09-19 11:35] LABS: MANUAL DIFF FLAG NO
[2023-09-19 11:56] LABS: Basophils Percent Auto 0.5 % (0-2); Eosinophils Absolute Auto 0.2 X10*3/uL (0.0-0.4); Eosinophils Percent Auto 2.6 % (0-4); Hematocrit 40.2 % (42.0-52.0); Hemoglobin 12.9 g/dl (14.0-18.0); Imm Gran Abs Auto 0.16 X10*3/uL (0.00-0.03); Imm Gran Pct Auto 2.1 % (0.0-0.4); Lymphocytes Absolute Auto 1.5 X10*3/uL (1.2-4.9); Lymphocytes Percent Auto 19.9 % (20-40); Mean Corpuscular HGB Conc 32.1 g/dl (31.0-36.0); Mean Corpuscular Hemoglobin 29.5 pg (27.0-33.0); Mean Corpuscular Volume 91.8 fL (80.0-98.0); Mean Platelet Volume 12.4 fL (9.4-12.4); Monocytes Absolute Auto 1.5 X10*3/uL (0.1-1.2); Monocytes Percent Auto 19.3 % (2-11); Neutrophils Absolute Auto 4.2 x10*3/uL (2.0-8.3); Neutrophils Percent Auto 55.6 % (45-73); Platelet Count 74 X10*3/uL (160-400); Red Blood Count 4.38 X10*6/uL (4.60-5.80); Red Cell Distribution Width 15.3 % (11.0-16.0); White Blood Count 7.6 X10*3/uL (4.8-10.8)
[2023-09-19 12:04] LABS: Estimated Average Glucose 103 mg/dL; Hemoglobin A1c % 5.2 % (<6.0)
[2023-09-19 12:31] LABS: Anion Gap 16 (12-20); Blood Urea Nitrogen 15 mg/dL (9-16); Calcium 9.6 mg/dL (8.4-10.2); Carbon Dioxide 25 mmol/L (22-29); Chloride 109 mmol/L (96-108); Estimated Glomerular Filt Rate 59; Glucose Random 111 mg/dL (60-115); Iron 77 mcg/dL (45-160); Percent Iron Saturation 32 % (15-50); Potassium 4.7 mmol/L (3.3-5.1); Sodium 145 mmol/L (135-145); Total Iron Binding Capacity 238 mcg/dL (228-428); Unsaturated Iron Binding 161 ug/dL
== END 2023-09-19 11:17 | disposition home or self-care (01) ==
LOC: HO.LAB 11:16
PROVIDERS: PCP Internal Medicine; Visit Provider Internal Medicine
DX: D64.9 Anemia, unspecified (principal); E11.9 Type 2 diabetes mellitus without complications; J61 Pneumoconiosis due to asbestos and other mineral fibers
CPT/HCPCS: 36415; 80048; 83036; 83540; 85025

== ENCOUNTER 2023-09-26 15:03 | Outpatient (AMB) | payer MEDICARE, BC, SELFPAY ==
[2023-09-26 15:35] VITALS: BP 144/70; PULSE 73; BMI 26.2
--- NOTE | 2023-09-26 15:35 | HO.NEPHOV ---
HPI HPI Comments History of Present Illness Details I had thw pleasure of seeing Ace in follow-up of his chronic kidney disease and a renal cyst. He does not have any dysuria, hematuria or frequency with micturition. His blood sugar control is quite reasonable. He does not have any flank pain, night sweats, weight loss or edema. He has lost some weight. He follows up with PCP regularly. He denies chest pain, shortness of breath, nausea, vomiting, diarrhea. He does not take any not tried anti-inflammatory medications. His blood pressure is well controlled. He had no specific complaints at this office visit. [facility] Medical History Sciatica Prediabetes Asbestosis Chronic cough Social History Household Members: Family Housing: House Do you presently have visiting nurse or other home services: No Alcohol intake: never service: Yes Current occupational status: retired Vital Signs 09/26/23 15:35 09/26/23 15:53 Height 5 ft 7 in Weight 167 lb BMI 26.2 BP 144/70 H 120/70 Blood Pressure Location Rt brachial Position Sitting Pulse 73 Pulse Source Pulse Oximeter Assessment & Plan Assessment & Plan (1) Renal cyst: Code(s): N28.1 - Cyst of kidney, acquired (2) CKD (chronic kidney disease) stage 3, GFR 30-59 ml/min: Code(s): N18.30 - Chronic kidney disease, stage 3 unspecified Qualifiers: Chronic kidney disease stage 3 subtype: stage 3a (GFR 45-59) Qualified Code(s): N18.31 - Chronic kidney disease, stage 3a Plan Ace has CKD stage 3 likely from vascular disease and age related loss of renal function. His serum creatinine is currently stable. His blood pressure is at goal. He tries to remain well hydrated. He avoids nonsteroidal anti-inflammatory medications. His blood sugar is well controlled. He does not have any hematuria, flank pain. He has had renal cyst . I have ordered a follow-up ultrasound repeated . we will check his urine for protein. He is not on any Austin inhibitors. Based on his level of kidney dysfunction and other studies he potentially is a candidate for Farxiga or Jardiance. He will be followed up in the office for continued care. All his questions were answered. Time spent for retrieving data, patient encounter and documentation 27 minutes. Orders: Orders US renal BI 09/26/23 N28.1 - Cyst of kidney, acquired Electrolytes 09/26/23 N18.30 - Chronic kidney disease, stage 3 unspecified, N28.1 - Cyst of kidney, acquired Blood Urea Nitrogen 09/26/23 N18.30 - Chronic kidney disease, stage 3 unspecified, N28.1 - Cyst of kidney, acquired Creatinine 09/26/23 N18.30 - Chronic kidney disease, stage 3 unspecified, N28.1 - Cyst of kidney, acquired Calcium 09/26/23 N18.30 - Chronic kidney disease, stage 3 unspecified, N28.1 - Cyst of kidney, acquired Coding Level of Care Code Est Pt Level 4 (11162) Diagnoses Renal cyst N28.1 Stage 3a chronic kidney disease N18.31 Chronic kidney disease stage 3 subtype: stage 3a (GFR 45-59)
[2023-09-26 15:53] VITALS: BP 120/70
== END 2023-09-26 16:18 | disposition home or self-care (01) ==
PROVIDERS: PCP Internal Medicine; Visit Provider Internal Medicine Nephrology
DX: N28.1 Cyst of kidney, acquired (principal); N18.31 Chronic kidney disease, stage 3a
CPT/HCPCS: 99213

== ENCOUNTER → 2023-09-26 15:03 | Outpatient (BNVA) | payer MEDICARE, BC, SELFPAY | PROVIDERS: PCP Internal Medicine; Visit Provider Internal Medicine Nephrology | DX: N28.1 Cyst of kidney, acquired (principal); R73.03 Prediabetes; Z91.85 Personal history of military service; N18.31 Chronic kidney disease, stage 3a | CPT/HCPCS: 99212 ==

== ENCOUNTER 2024-01-12 13:22 | Outpatient (REF) | payer MEDICARE, BC, SELFPAY ==
--- NOTE | ~2024-01-12 | CT_ITS ---
EXAMINATION: CT CHEST WITHOUT CONTRAST CLINICAL INFORMATION: Pneumoconiosis due to asbestos and other mineral fibers. COMPARISON: CT chest 05/27/2022. TECHNIQUE: Multidetector volumetric CT imaging of the chest was done. Axial MIP volume rendering provided. Sagittal and coronal reformatted images were obtained. This CT examination was performed using dose optimization techniques as appropriate, variously including the following: *Automated exposure control *Adjustment of mA and/or kV according to patient size (this includes techniques or standardized protocols for targeted exams where dose is matched to indication/reason for exam; i.e. extremities or head) *Use of iterative reconstruction technique DLP: 186 mGy-cm FINDINGS: LUNGS and PLEURA: Multiple pleural plaques in the right hemithorax are again seen involving most pleural surfaces, some of which have calcification, unchanged when compared to the prior study. There is associated traction bronchiectasis seen at the right lung base along with subpleural reticulation, unchanged from prior. There is a single area of pleural plaquing noted in the left hemithorax near the apical segment of the left lower lobe with a tiny punctate calcification (6:64), unchanged from the prior study. MEDIASTINUM: Thyroid is unremarkable. Aortic calcification is seen. No aortic aneurysm. No pericardial effusion. CORONARY ARTERY CALCIFICATION: Mild. PLEURA: There is no pleural effusion. No pleural mass or thickening. AXILLA: No lymphadenopathy. UPPER ABDOMEN: Unremarkable. OSSEOUS STRUCTURES: Mild degenerative changes present in the spine. No bony destructive lesions. CT/CT chest wo IV con IMPRESSION: 1. Stable appearance of the chest with multiple pleural plaques in the right hemithorax and a single area of pleural plaquing in the left hemithorax. 2. Other incidental findings as described above including traction bronchiectasis at the right lung base with associated subpleural reticulation.. Fleischner guidelines were followed.
== END 2024-01-12 13:23 | disposition home or self-care (01) ==
LOC: HO.CT 13:22
PROVIDERS: PCP Internal Medicine; Visit Provider Internal Medicine Pulmonary Disease
DX: J61 Pneumoconiosis due to asbestos and other mineral fibers (principal)
CPT/HCPCS: 71250

== ENCOUNTER 2024-01-16 11:08 | Outpatient (REF) | payer MEDICARE, BC, SELFPAY ==
[2024-01-16 11:47] LABS: Basophils Percent Auto 0.4 % (0-2); Eosinophils Absolute Auto 0.3 X10*3/uL (0.0-0.4); Eosinophils Percent Auto 2.9 % (0-4); Hematocrit 41.1 % (42.0-52.0); Hemoglobin 13.3 g/dl (14.0-18.0); Imm Gran Abs Auto 0.46 X10*3/uL (0.00-0.03); Lymphocytes Absolute Auto 1.6 X10*3/uL (1.2-4.9); Lymphocytes Percent Auto 16.8 % (20-40); MANUAL DIFF FLAG SCAN; Mean Corpuscular HGB Conc 32.4 g/dl (31.0-36.0); Mean Corpuscular Hemoglobin 29.3 pg (27.0-33.0); Mean Corpuscular Volume 90.5 fL (80.0-98.0); Mean Platelet Volume 12.2 fL (9.4-12.4); Monocytes Absolute Auto 1.6 X10*3/uL (0.1-1.2); Monocytes Percent Auto 17.2 % (2-11); Neutrophils Absolute Auto 5.3 x10*3/uL (2.0-8.3); Neutrophils Percent Auto 57.7 % (45-73); Red Blood Count 4.54 X10*6/uL (4.60-5.80); Red Cell Distribution Width 15.5 % (11.0-16.0); SCAN SMEAR FLAG 1; White Blood Count 9.2 X10*3/uL (4.8-10.8)
[2024-01-16 11:48] LABS: Platelet Count 89 X10*3/uL (160-400)
[2024-01-16 12:10] LABS: SLIDE REVIEW VERIFIED
[2024-01-16 12:33] LABS: Alanine Aminotransferase 20 U/L (0-40); Albumin Level 4.4 g/dL (3.5-5.0); Alkaline Phosphatase 82 U/L (39-117); Anion Gap 10 (12-20); Aspartate Amino Transferase 28 U/L (5-37); Bilirubin Total 0.9 mg/dL (0.0-1.0); Blood Urea Nitrogen 16 mg/dL (9-16); Calcium 9.5 mg/dL (8.4-10.2); Carbon Dioxide 28 mmol/L (22-29); Chloride 108 mmol/L (96-108); Estimated Glomerular Filt Rate 53; Glucose Random 114 mg/dL (60-115); Potassium 4.3 mmol/L (3.3-5.1); Sodium 142 mmol/L (135-145); Total Protein 7.7 g/dL (6.5-8.0)
[2024-01-16 16:15] LABS: Estimated Average Glucose 111 mg/dL; Hemoglobin A1c % 5.5 % (<6.0)
== END 2024-01-16 11:09 | disposition home or self-care (01) ==
LOC: HO.LAB 11:08
PROVIDERS: PCP Internal Medicine; Visit Provider Internal Medicine
DX: E11.22 Type 2 diabetes mellitus with diabetic chronic kidney disease (principal); N18.9 Chronic kidney disease, unspecified; D63.1 Anemia in chronic kidney disease
CPT/HCPCS: 36415; 80053; 83036; 85025

== ENCOUNTER 2024-02-27 15:00 | Outpatient (AMB) | payer MEDICARE, BC, SELFPAY ==
[2024-02-27 15:02] VITALS: BP 138/82; PULSE 78; O2SAT 95; BMI 25.7
--- NOTE | 2024-02-27 15:02 | A.OFFVIS_ITS ---
Intake Vital Signs 02/27/24 15:02 Height 5 ft 7 in Weight 164 lb 3.91 oz BMI 25.7 BP 138/82 Blood Pressure Location Lt brachial Position Sitting Pulse 78 Pulse Source Doppler Pulse Oximetry (%) 95 Oxygen Delivery Method Room Air Intake Visit Reasons: COPD Allergies No Known Allergies Allergy (Verified 02/27/24 15:07) HPI COPD HPI Details 78-year-old gentleman, former 20 pack-ye ar smoker, quit 30 years prior followed for chronic nonproductive cough and underlying pulmonary asbestosis. Patient has intermittent nonproductive cough that only response to systemic glucocorticoids. At this time he has not interested in repeating prednisone pulse. His pulmonary function test is pending. He denies recent exacerbations. [facility] Medical History Sciatica Prediabetes Asbestosis Chronic cough Social History Household Members: Family Housing: House Do you presently have visiting nurse or other home services: No Alcohol intake: never service: Yes Current occupational status: retired Review of Systems Const Denies daytime sleepiness, Denies excessive sweating, Denies fatigue, Denies fever(s), Denies lethargy, Denies malaise, Denies night sweats, Denies snoring and Denies weight loss Eyes Denies blurry vision and Denies itchy eyes ENT Denies nasal congestion, Denies post nasal drip, Denies sinus pain, Denies sinus pressure and Denies other ( Thrush) Card Denies chest pain, Denies pedal edema, Denies dyspnea, Denies orthopnea and D enies paroxysmal nocturnal dyspnea Resp Reports cough, Denies hemoptysis, Denies excessive phlegm production, Denies dyspnea, Denies snoring and Denies wheezing GI Denies abdominal pain and Denies heartburn Musc Denies myalgias, Denies arthralgias and Denies joint swelling Skin/Breast Denies rash Neuro Denies memory loss and Denies seizure-like activity Psych Denies abnormal sleep pattern, Denies anxiety and Denies memory loss Endo Denies excessive sweating, Denies fatigue and Denies heat intolerance Ari/Lymph Denies easy bruising Aller/Immun Denies itchy eyes, Denies seasonal rhinorrhea and Denies wheezing Physical Exam Vital Signs: Last Vital Signs Pulse 78 02/27/24 15:02 BP 138/82 02/27/24 15:02 Pulse Ox 95 02/27/24 15:02 Oxygen Delivery Method Room Air 02/27/24 15:02 BMI result Body Mass Index 25.7 Const General: no acute distress and alert Nutritional Appearance: not obese Orientation/consciousness: Other orientation findings ( oriented) HEENT Head: Yes atraumatic Eyes General: appearance normal, both eyes and all related structures Sclerae: sclerae normal EOM: EOMs intact bilaterally Neck Neck: Yes supple Lymphatic: no lymphadenopathy noted Resp Effort & Inspection: normal respiratory effort and no use of accessory muscles Auscultation: clear to auscultation bilaterally Cardio Rate: regular rate Rhythm: regular rhythm Heart sounds: no gallops, no murmurs and no rubs Skin General skin exam: other ( warm) Extrem General: No clubbing, No cyanosis and No edema Assessment & Plan Assessment & Plan (1) Asbestosis: Code(s): 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 CT chest reviewed, no significant changes from prior. Continue to monitor clinically. Pulmonary function test is pending. (2) Bronchiectasis: Code(s): J47.9 - Bronchiectasis, uncomplicated Plan: With no recent exacerbations. Does not require antibiotic therapy. Continue to monitor clinically. (3) Chronic cough: Code(s): R05 - Cough Plan: Intermittent exacerbations only responsive to systemic glucocorticoids. At this time patient is not interested in prednisone pulse. Coding Level of Care Code Est Pt Level 4 (99026) Diagnoses Asbestosis J61 Bronchiectasis J47.9 Chronic cough R05
== END 2024-02-27 15:31 | disposition home or self-care (01) ==
PROVIDERS: PCP Internal Medicine; Visit Provider Internal Medicine Pulmonary Disease
DX: J61 Pneumoconiosis due to asbestos and other mineral fibers (principal); J47.9 Bronchiectasis, uncomplicated; R05.9 Cough, unspecified
CPT/HCPCS: 99214

== ENCOUNTER → 2024-02-27 15:00 | Outpatient (BNVA) | payer MEDICARE, BC, SELFPAY | PROVIDERS: PCP Internal Medicine; Visit Provider Internal Medicine Pulmonary Disease | DX: J61 Pneumoconiosis due to asbestos and other mineral fibers (principal); J47.9 Bronchiectasis, uncomplicated; R05.3 Chronic cough | CPT/HCPCS: 99212 ==

== ENCOUNTER 2024-08-17 13:00 | Outpatient (REF) | payer MEDICARE, BC, SELFPAY ==
[2024-08-17 09:48] VITALS: PULSE 78; RESP 16; O2SAT 98
--- NOTE | 2024-08-17 12:30 | PFT_ITS ---
Flows: FEV1: 82 % of predicted at 2.12 L FVC: 80 % of predicted at 2.77 L FEV1/FVC: 76 % Bronchodilator response: Absent Volumes: Not performed Diffusion capacity: Moderately decreased, adjusts to being mildly decreased after correction for alveolar ventilation. Impression: No obstructive ventilatory defect. No bronchodilator response. Lung volume maneuvers not performed. Decreased diffusion capacity suggests emphysema. MTDD
== END 2024-08-17 13:01 | disposition home or self-care (01) ==
LOC: HO.RESP 13:00
PROVIDERS: PCP Internal Medicine; Visit Provider Internal Medicine Pulmonary Disease
DX: J61 Pneumoconiosis due to asbestos and other mineral fibers (principal)
CPT/HCPCS: 94010; 94640; 94727; 94729

== ENCOUNTER 2024-08-29 15:02 | Outpatient (AMB) | payer MEDICARE, BC, SELFPAY ==
[2024-08-29 15:04] VITALS: BP 142/77; PULSE 82; O2SAT 93; BMI 25.5
--- NOTE | 2024-08-29 15:04 | MHC.OFFVIS ---
Vital Signs 08/29/24 15:04 Height 5 ft 7 in Weight 163 lb BMI 25.5 BP 142/77 H Blood Pressure Location Lt brachial Position Sitting Pulse 82 Pulse Source Doppler Pulse Oximetry (%) 93 Oxygen Delivery Method Room Air Intake Visit Reasons: COPD Allergies No Known Allergies Allergy (Verified 02/27/24 15:07) HPI HPI COPD: Details: 79-year-old gentleman, former 20 pack-year smoker, quit 30 years prior followed for chronic nonproductive cough and underlying pulmonary asbestosis. Patient has intermittent nonproductive cough that only response to systemic glucocorticoids with recent exacerbation. At this time he is interested in repeating prednisone pulse. His pulmonary function test shows age-appropriate changes. He denies recent exacerbations. [facility] Medical History Sciatica Prediabetes Asbestosis Chronic cough Social History (Reviewed 02/27/24 @ 15:07 by Dominique Quintana [facility]) Household Members: Family Housing: House Do you presently have visiting nurse or other home services: No Alcohol intake: never service: Yes Current occupational status: retired Review of Systems Const Denies daytime sleepiness, Denies excessive sweating, Denies fatigue, Denies fever(s), Denies lethargy, Denies malaise, Denies night sweats, Denies snoring and Denies weight loss Eyes Denies blurry vision and Denies itchy eyes ENT Denies nasal congestion, Denies post nasal drip, Denies sinus pain, Denies sinus pressure and Denies other ( Thrush) Card Denies chest pain, Denies pedal edema, Denies dyspnea, Denies orthopnea and Denies paroxysmal nocturnal dyspnea Resp Reports cough, Denies hemoptysis, Denies excessive phlegm production, Denies dyspnea, Denies snoring and Denies wheezing GI Denies abdominal pain and Denies heartburn Musc Denies myalgias, Denies arthralgias and Denies joint swelling Skin/Breast Denies rash Neuro Denies memory loss and Denies seizure-like activity Psych Denies abnormal sleep pattern, Denies anxiety and Denies memory loss Endo Denies excessive sweating, Denies fatigue and Denies heat intolerance Ari/Lymph Denies easy bruising Aller/Immun Denies itchy eyes, Denies seasonal rhinorrhea and Denies wheezing Physical Exam Vital Signs: Last Vital Signs Pulse 82 08/29/24 15:04 BP 142/77 H 08/29/24 15:04 Pulse Ox 93 08/29/24 15:04 Oxygen Delivery Method Room Air 08/29/24 15:04 BMI result Body Mass Index 25.5 Const General: no acute distress and alert Nutritional Appearance: not obese Orientation/consciousness: Other orientation findings ( oriented) HEENT Head: Yes atraumatic Eyes General: appearance normal, both eyes and all related structures Sclerae: sclerae normal EOM: EOMs intact bilaterally Neck Neck: Yes supple Lymphatic: no lymphadenopathy noted Resp Effort & Inspection: normal respiratory effort and no use of accessory muscles Auscultation: clear to auscultation bilaterally Cardio Rate: regular rate Rhythm: regular rhythm Heart sounds: no gallops, no murmurs and no rubs Skin General skin exam: other ( warm) Extrem General: No clubbing, No cyanosis and No edema Assessment & Plan Assessment & Plan (1) Chronic cough: Code(s): R05 - Cough Category: Medical Plan: Now with an exacerbation, will treat with a prednisone pulse. (2) Bronchiectasis: Code(s): J47.9 - Bronchiectasis, uncomplicated Category: Medical Plan: No significant productive component, at this time no antibiotic therapy is needed. (3) Asbestosis: Code(s): J61 - Pneumoconiosis due to asbestos and other mineral fibers Category: Medical Plan: Results of pulmonary function test reviewed, age-appropriate changes. Medications: New prednisone 40 mg (2 x 20 mg) PO DAILY 14 tabs 0RF Coding Level of Care Code Est Pt Level 4 (44353) Complex EM visit Add On G2211 Diagnoses Chronic cough R05 Bronchiectasis J47.9 Asbestosis J61
== END 2024-08-29 15:34 | disposition home or self-care (01) ==
PROVIDERS: PCP Internal Medicine; Visit Provider Internal Medicine Pulmonary Disease
DX: R05.9 Cough, unspecified (principal); J47.9 Bronchiectasis, uncomplicated; J61 Pneumoconiosis due to asbestos and other mineral fibers
CPT/HCPCS: 99214; G2211

== ENCOUNTER → 2024-08-29 15:02 | Outpatient (BNVA) | payer MEDICARE, BC, SELFPAY | PROVIDERS: PCP Internal Medicine; Visit Provider Internal Medicine Pulmonary Disease | DX: J61 Pneumoconiosis due to asbestos and other mineral fibers (principal); J47.9 Bronchiectasis, uncomplicated; R05.3 Chronic cough | CPT/HCPCS: 99212 ==

== ENCOUNTER 2024-09-09 15:59 | Inpatient (IN) | payer MEDICARE, BC, SELFPAY ==
[2024-09-09] VITALS (11 sets, daily range): BP systolic 120–142; BP diastolic 68–90; PULSE 85–153; RESP 12–24; TEMP 36.4–37.7; O2SAT 88–98; BMI 24.9
--- NOTE | ~2024-09-09 | XR_ITS ---
EXAMINATION: XR CHEST CLINICAL INFORMATION: Chest pain COMPARISON: CT chest on 01/12/24 TECHNIQUE: 2 views of the chest were obtained. FINDINGS: The cardiac silhouette is normal. There is mild diffuse bronchial wall thickening and chronic interstitial disease right greater than left. There are no pleural effusions or pneumothoraces. The bones and soft tissues are unremarkable for the patient's age. XR/XR chest 2V IMPRESSION: No acute disease. Electronically signed by: Marleny Reid MD 09/09/2024 06:08 PM EDT RP
--- NOTE | ~2024-09-09 | CT_ITS ---
EXAMINATION: CT CHEST WITH CONTRAST CLINICAL INFORMATION: Cough, chest pain and sepsis. COMPARISON: None available. TECHNIQUE: Multidetector volumetric CT imaging of the chest was obtained after the administration of 50 mL of Omnipaque 350 intravenous contrast without immediate adverse reactions. Axial MIP volume rendering provided. Sagittal and coronal reformatted images were obtained. This CT examination was performed using dose optimization techniques as appropriate, variously including the following: *Automated exposure control *Adjustment of mA and/or kV according to patient size (this includes techniques or standardized protocols for targeted exams where dose is matched to indication/reason for exam; i.e. 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 There is mild bronchiectasis and and peribronchial interstitial thickening in both lung bases. There is mild honeycombing seen in the right lower lobe. MEDIASTINUM: The thyroid lobes are symmetrical and normal. The central trachea and the bronchi are widely patent. PLEURA: There is moderate right pleural thickening with small effusion involving the entire lung and small left pleural effusion. There is calcified pleural plaques in right upper lobe anteriorly and left midlung posteriorly. AXILLA: No abnormal sized axillary lymph nodes seen. UPPER ABDOMEN: The liver is diffusely attenuated. Visualized spleen, gallbladder and the pancreas is unremarkable. OSSEOUS STRUCTURES: No aggressive lytic or sclerotic process seen . There is mild mid dorsal spine spondylosis CT/CT chest w IV con IMPRESSION: Calcified pleural plaques, chronic right pleural thickening and small bowel pleural effusions likely sequelae of asbestosis. Groundglass attenuation in both upper lobes right greater than left with honeycombing in the right lower lobe. These composite findings are suspicious for chronic interstitial lung disease. There is mild bilateral lower lobe bronchiectasis. Fleischner guidelines were followed. Electronically signed by: Darrel Rosario MD 09/09/2024 08:34 PM EDT
--- NOTE | 2024-09-09 16:15 | ED.GENADULT ---
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 Reports he has been febrile with a temperature over 100. About 1.5 weeks ago, 08/29/2024 he called his vocational case manager and was prescribed a prednisone course of 20 mg taking daily for 7 days without improvement. Reports symptoms worsened about 3 days ago, declined to come to emergency department at time. Reports 3 days ago his was admitted into the hospital with COVID-19 and pneumonia. Related Data Home Medications ?Medication ?Instructions ?Recorded ?Confirmed metformin 500 mg tablet 1,000 mg PO BID 09/26/23 09/09/24 naproxen sodium 220 mg capsule 220 mg PO DAILY PRN Pain 09/26/23 09/09/24 (Aleve) acetaminophen 500 mg tablet 500 mg PO DAILY PRN Pain 09/09/24 09/09/24 kaeozyxspw-FV-FG-acetaminophen 2 cap PO DAILY PRN Allergies 09/09/24 09/09/24 6.25 mg-5 mg-10 mg-325 mg capsule phenylephrine HCl 10 mg tablet 10 mg PO DAILY PRN Allergies 09/09/24 09/09/24 (Sudafed PE) Allergies Allergy/AdvReac Type Severity Reaction Status Date / Time No Known Allergies Allergy Verified 09/09/24 16:19 Review of Systems Review of Systems: Yes all other systems are reviewed and are negative [facility] Past Medical History Attestation statement: The following information was validated with the patient. Source: old records reviewed Medical History Sciatica Prediabetes Asbestosis Chronic cough Social History Social History Household Members: Family Housing: House Do you presently have visiting nurse or other home services: No Alcohol intake: never Patient Tobacco Use Status: Never used Tobacco Smoked in Last 30 Days: No Use of substances other than those prescribed or required for medical reasons: No Advance Directives: Yes Advance Directives Information Provided: Yes Advance Directives on File: No Do you have a plan to hurt others: No Plan Nutrition Risks: No Nutritional Risk service: Yes Current occupational status: retired Physical Exam ED Vital Signs: Vital Signs - 24 hr 09/09/24 16:15 09/09/24 17:15 09/09/24 17:16 Temperature 97.6 F 97.6 F Pulse Rate 127 H 144 H Respiratory Rate 24 H 14 Blood Pressure 141/78 H 120/68 Pulse Oximetry 92 94 92 Oxygen Delivery Method Room Air Room Air Room Air Oxygen Flow Rate 09/09/24 17:34 09/09/24 17:40 09/09/24 17:41 Temperature Pulse Rate Respiratory Rate Blood Pressure Pulse Oximetry 88 L 88 L 96 Oxygen Delivery Method Room Air Room Air Nasal Cannula Oxygen Flow Rate 2 09/09/24 18:19 09/09/24 18:33 09/09/24 19:48 Temperature 98.6 F 99.9 F 99.6 F Pulse Rate 139 H 153 H 96 Respiratory Rate 20 19 17 Blood Pressure 135/90 H 140/84 H 142/82 H Pulse Oximetry 98 98 97 Oxygen Delivery Method Nasal Cannula Nasal Cannula Room Air Oxygen Flow Rate 2 2 09/09/24 19:54 Temperature Pulse Rate Respiratory Rate Blood Pressure 142/80 H Pulse Oximetry Oxygen Delivery Method Oxygen Flow Rate BMI result Body Mass Index 24.9 Appearance: Alert.?Oriented to person, place and time. No acute distress.?Normal affect. Eyes: Pupils equal, round and reactive to light.? ENT: Pharynx erythematous without exudates. No tonsillar hypertrophy. Uvula midline. No trismus. No drooling. ? Neck: Normal inspection.? Neck supple.??No cervical adenopathy CVS: Heart sounds normal. Tachycardia Pulses normal.?? Respiratory: No respiratory distress.? Lung sounds with rales in the bilateral bases Abdomen: Soft and non-tender. Normoactive bowel sounds. Skin: Skin warm and dry.? Skin appears pale Extremities: No lower extremity edema.? No calf ttp? Neuro: Moves all extremities spontaneously. Sensation intact bilaterally. No focal neuro deficits. Ambulates with normal steady gait. Course Course Course Narrative: RME performed by Lora Velázquez PA-C. Patient is an 79 year old assigned male at presenting to the emergency department with a cough and fever. Patient states that over the last few days he has had a cough and fever. Detailed physical exam and review of systems are deferred to the primary special education teacher. Labs, imaging, and swabs ordered. Patient placed back in the waiting room pending room availability and results. Medications Administered Generic Name Dose Route Start Last Admin Trade Name Rosaura PRN Reason Stop Dose Admin Atorvastatin Calcium 40 mg 09/09/24 21:00 09/09/24 21:46 Atorvastatin Calcium 40 Mg Tablet PO 40 mg BEDTIME RASHAD Administration Heparin Sodium/Sodium Chloride 25,000 unit in 250 mls @ 0 mls/hr 09/09/24 18:45 09/09/24 20:25 Heparin Sodium,Porcine/1/2ns IVCONT 12 units/kg/hr .Q0M RASHAD 8.66 mls/hr Administration Protocol Per Protocol Levofloxacin 750 mg in 150 mls @ 100 mls/hr 09/09/24 21:00 09/09/24 23:18 Levaquin IV Infused Q24H RASHAD Infusion Insulin Human Lispro 0 unit 09/09/24 21:00 09/09/24 21:54 Insulin Lispro 100 Unit/Ml 3 Ml Vial SUBCUT Not Given QIDACHS [facility] Protocol Metoprolol Tartrate 25 mg 09/09/24 21:00 09/09/24 20:21 Metoprolol Tartrate 25 Mg Tablet PO 25 mg BID RASHAD Administration Protocol Sodium Chloride 3 ml 09/10/24 00:00 09/10/24 00:05 0.9 % Sodium Chloride Flush 3 Ml Syringe IVFLUSH Not Given QSHIFT [facility] Discontinued Medications Generic Name Dose Route Start Last Admin Trade Name Rosaura PRN Reason Stop Dose Admin Aspirin 324 mg 09/09/24 18:28 09/09/24 19:59 Aspirin 81 Mg Tab.Chew PO 09/09/24 18:29 324 mg ONCE ONE Administration Ceftriaxone Sodium 1 gm 09/09/24 16:48 09/09/24 17:07 Ceftriaxone Sodium 1 Gm Vial IVPUSH 09/09/24 16:49 1 gm ONCE ONE Administration Heparin Sodium (Porcine) 4,000 unit 09/09/24 18:34 09/09/24 20:20 Heparin Sodium,Porcine 5,000 Unit/Ml Vial IVPUSH 09/09/24 18:35 4,000 unit ONCE ONE Administration Sodium Chloride 2,166 mls @ 2,166 mls/hr 09/09/24 17:00 09/09/24 18:15 Ns 30 ml/kg infuse over 1 hr (2166 ml) 09/09/24 17:59 Infused IV Infusion .Q1H STA Piperacillin Sod/Tazobactam 50 mls @ 100 mls/hr 09/09/24 17:33 09/09/24 18:26 Sod 3.375 gm/ Sodium Chloride IV 09/09/24 18:02 Infused ONCE ONE Infusion Iohexol 65 ml 09/09/24 20:10 09/09/24 20:13 Iohexol 350 Mg/Ml 100 Ml Infus..Btl IV 09/09/24 20:11 65 ml ONCE ONE Administration Metoprolol Tartrate 5 mg 09/09/24 18:28 09/09/24 20:04 Metoprolol Tartrate 5 Mg/5 Ml Vial IVPUSH 09/09/24 18:29 Not Given ONCE ONE Protocol Medical Decision Making Medical Decision Making [facility] Narrative: Patient is an 79-year-old male with 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 On arrival at 16:53 sepsis alert was called due to tachycardia in the 120s, and critical white blood cell count of 39 with suspected infection. Sepsis fluid bolus was ordered, initial coverage with Rocephin. Was found to be strep A positive, therefore Zosyn was added for coverage. Initial EKG was obtained revealing AFib with RVR, ventricular rate of 148, diffuse ST depression, reviewed with the attending Dr. Vergara; concern for changes due to sepsis versus ACS. Will reassess after sepsis fluid bolus for rate control. Reviewed CXR concerning for right lower lobe pneumonia. 18:15 troponin resulted at 11,823.4 - added aspirin for coverage, reaching out to Cardiology Dr. Nichols. Remains tachy 130s-140s, sepsis fluid bolus has completed. As per cardiology will initiate heparin infusion and aspirin metoprolol 5 mg IVP and 25 mg b.i.d. Differential Diagnosis Differential Diagnoses: The differential diagnosis associated with the presentation includes (See narrative above) Admission/Observation Consideration of admission/observation: Escalation of care including admission/observation considered (See narrative above) Consult Healthcare Provider Management of the patient was discussed with: Hospitalist (Dr. Kuo) and Rubble Placer (See narrative above) Lab Data MDM Lab Attestation statement: I reviewed the patient's lab results. Profound leukocytosis 13.9 with left shift, 7 bands. No electrolyte derangement. No TALA. Lactic acid 2.5. 09/09/24 16:29 09/09/24 16:29 Labs: Lab Results 09/09/24 09/09/24 09/09/24 Range/Units 16:29 17:02 19:24 WBC 39.0 H* (4.8-10.8) X10*3/uL RBC 4.64 (4.60-5.80) X10*6/uL Hgb 13.6 L (14.0-18.0) g/dl Hct 43.5 (42.0-52.0) % MCV 93.8 (80.0-98.0) fL MCH 29.3 (27.0-33.0) pg MCHC 31.3 (31.0-36.0) g/dl RDW 17.4 H (11.0-16.0) % Plt Count 130 L D (160-400) X10*3/uL MPV 12.0 (9.4-12.4) fL Immature Gran % (Auto) Cancelled Neut % (Auto) Cancelled Lymph % (Auto) Cancelled [place] % (Auto) Cancelled Eos % (Auto) Cancelled Baso % (Auto) Cancelled Lymph # (Auto) Cancelled [place] # (Auto) Cancelled Eos # (Auto) Cancelled Baso # (Auto) Cancelled Abs Immat Gran (auto) Cancelled Absolute Neuts (auto) Cancelled Absolute Nucleated RBC 0.040 H (0.0-0.012) X10*3/uL Nucleated RBC % (auto) 0.1 (0.0-0.2) /100WBC Neutrophils % (Manual) 71 (45-73) % Band Neutrophils % 7 H (3-5) % Lymphocytes % (Manual) 8 L (20-40) % Atypical Lymphs % (Man) 6 (0-6) % Monocytes % (Manual) 1 L (2-11) % Metamyelocytes % 5 % Myelocytes % 2 % Abs Neuts (Manual) 30.4 H (2.0-8.3) X10*3/uL Lymphocytes # (Manual) 3.1 (1.2-4.9) X10*3/uL Atyp Lymphs # (Manual) 2.3 x10*3/uL Monocytes # (Manual) 0.4 (0.1-1.2) X10*3/uL Metamyelocytes # 2.0 X10*3/uL Myelocytes # 0.8 X10*/uL Toxic Vacuolation PRESENT Dohle Bodies Not Reportable Platelet Estimate NORMAL (NORMAL) Plt Morphology Comment NORMAL RBC Morphology NOTED Polychromasia 1+ (0-2) /OIF Antunez-[place] Bodies PRESENT PT 15.2 H (10.9-12.4) SEC INR 1.3 H (0.9-1.1) aPTT Heparin Protocol 33.4 L (53-77.9) SEC Sodium 140 (135-145) mmol/L Potassium 4.2 (3.3-5.1) mmol/L Chloride 105 (96-108) mmol/L Carbon Dioxide 22 (22-29) mmol/L Anion Gap 17 (12-20) BUN 17 H (9-16) mg/dL Creatinine 1.38 (0.5-1.4) mg/dL Estim Creat Clear Calc 39.2 Estimated GFR 49 Random Glucose 128 H (60-115) mg/dL Lactic Acid 2.5 H* (0.5-2.0) mmol/L Lactic Acid F/U @ 2Hr 1.4 (0.5-2.0) mmol/L Calcium 9.1 (8.4-10.2) mg/dL Magnesium 1.9 (1.6-2.6) mg/dL Total Bilirubin 1.4 H (0.0-1.0) mg/dL AST 141 H (5-37) U/L ALT 50 H (0-40) U/L Alkaline Phosphatase 120 H (39-117) U/L Troponin I High Sens 69211.4 H* 8924.0 H* (<3.5-35.0) ng/L Total Protein 7.0 (6.5-8.0) g/dL Albumin 3.9 (3.5-5.0) g/dL Influenza Type A (PCR) NEGATIVE (Negative) Influenza Type B (PCR) NEGATIVE (Negative) RSV RNA Qual (PCR) NEGATIVE (Negative) SARS-CoV-2 RNA (RT-PCR) NEGATIVE (Negative) S. pyogenes GrpA MARTINE Positive A (Negative) Independent Interpretation I performed an independent interpretation of an: Plain X-Ray (See narrative above - concern for right lower lobe pneumonia, radiologist impression revealing no acute disease) Radiology Impression Discussion of test interpretation with radiology: I have reviewed the radiologist's reading. Radiologist Impression: XR/XR chest 2V IMPRESSION: No acute disease. CT/CT chest w IV con IMPRESSION: Calcified pleural plaques, chronic right pleural thickening and small bowel pleural effusions likely sequelae of asbestosis. Groundglass attenuation in both upper lobes right greater than left with honeycombing in the right lower lobe. These composite findings are suspicious for chronic interstitial lung disease. There is mild bilateral lower lobe bronchiectasis. Independent Historian Clinical information obtained from an independent historian. History obtained from or confirmed by: Other (Son) External Record Review External record reviewed: Outpatient record Chronic Conditions Patient?s care impacted by: Diabetes and Other (Asbestos) Critical Care Time Critical Care Time Critical Care Time: Yes Total Critical Care Time: 65 Attestation: I personally attest to this critical care time spent taking care of the patient exclusive of all other billable procedures was approximately 65 minutes including initial evaluation of patient, ordering tests, x-ray interpretation, EKG interpretation, sepsis management, NSTEMI, medical consultation, documentation, re-evaluation. Discharge Plan Discharge Clinical Impression: NSTEMI (non-ST elevated myocardial infarction), Atrial fibrillation with RVR, Sepsis Interventions: Admission Worksheet (ED) Last Done: 09/10/24 00:59
[2024-09-09 16:45] LABS: Hematocrit 43.5 % (42.0-52.0); Hemoglobin 13.6 g/dl (14.0-18.0); Mean Corpuscular HGB Conc 31.3 g/dl (31.0-36.0); Mean Corpuscular Hemoglobin 29.3 pg (27.0-33.0); Mean Corpuscular Volume 93.8 fL (80.0-98.0); NRBC Pct Auto 0.1 /100WBC (0.0-0.2); Platelet Count 130 X10*3/uL (160-400); Red Blood Count 4.64 X10*6/uL (4.60-5.80); Red Cell Distribution Width 17.4 % (11.0-16.0)
[2024-09-09 16:58] LABS: Alanine Aminotransferase 50 U/L (0-40); Albumin Level 3.9 g/dL (3.5-5.0); Alkaline Phosphatase 120 U/L (39-117); Anion Gap 17 (12-20); Aspartate Amino Transferase 141 U/L (5-37); Bilirubin Total 1.4 mg/dL (0.0-1.0); Blood Urea Nitrogen 17 mg/dL (9-16); Calcium 9.1 mg/dL (8.4-10.2); Carbon Dioxide 22 mmol/L (22-29); Chloride 105 mmol/L (96-108); Creatinine Clr Calc Pharmacy 39.2; Estimated Glomerular Filt Rate 49; Glucose Random 128 mg/dL (60-115); IDNOW Serial# 58CA691E; Magnesium 1.9 mg/dL (1.6-2.6); Potassium 4.2 mmol/L (3.3-5.1); Sodium 140 mmol/L (135-145); Strep A Nucleic Acid Positive (Negative)
[2024-09-09] MEDS: cefTRIAXone sodium 1 GM VIAL IVPUSH (17:07)
[2024-09-09] MEDS: SODIUM CHLORIDE 2166 ML IV (17:08)
[2024-09-09 17:23] LABS: Atypical Lymph Absolute Manual 2.3 x10*3/uL; Atypical Lymphs Percent Manual 6 % (0-6); Band Neutrophils Percent 7 % (3-5); Lymphocytes Absolute Manual 3.1 X10*3/uL (1.2-4.9); Lymphocytes Percent Manual 8 % (20-40); Metamyelocytes Percent 5 %; Monocytes Absolute Manual 0.4 X10*3/uL (0.1-1.2); Monocytes Percent Manual 1 % (2-11); Myelocytes Absolute 0.8 X10*/uL; Myelocytes Percent 2 %; Neutrophils Absolute Manual 30.4 X10*3/uL (2.0-8.3); Neutrophils Percent Manual 71 % (45-73)
[2024-09-09 17:25] LABS: Howell Jolly Bodies PRESENT; Polychromasia 1+ (0-2) /OIF; RBC Morphology NOTED
[2024-09-09 17:26] LABS: Platelet Estimate NORMAL (NORMAL)
[2024-09-09 17:27] LABS: Platelet Morphology Comment NORMAL; Toxic Vacuolation PRESENT
[2024-09-09 17:31] LABS: Lactic Acid 2.5 mmol/L (0.5-2.0)
[2024-09-09 17:31] LABS: Influenza A PCR NEGATIVE (Negative); Influenza B PCR NEGATIVE (Negative); Resp Syncy Virus RNA Qual PCR NEGATIVE (Negative); SARS COV2 PCR INHOUSE NEGATIVE (Negative)
[2024-09-09] MEDS: Piperacillin Sodium/Tazobactam 3.375 GM in 0.9 % Sodium Chloride 50 ML IV (17:50)
[2024-09-09 18:13] LABS: Troponin-I High Sensitivity 11823.4 ng/L (<3.5-35.0)
[2024-09-09 19:07] LABS: Reflex Lactate? Lactic Acid Added
--- NOTE | 2024-09-09 19:28 | ECG_ITS ---
Test Reason : TACHYCARDIA Blood Pressure : / mmHG Vent. Rate : 148 BPM Atrial Rate : 000 BPM P-R Int : 000 ms QRS Dur : 084 ms QT Int : 312 ms P-R-T Axes : 000 042 -84 degrees QTc Int : 489 ms Atrial fibrillation with rapid ventricular response Marked ST abnormality, possible anterolateral subendocardial injury Abnormal ECG When compared with ECG of 26-JUN-2021 15:20, Atrial fibrillation has replaced Sinus rhythm Vent. rate has increased BY [address] now depressed in Anterolateral leads T wave inversion now evident in Inferior leads Referred By: Lora Velázquez Electronically Signed By:Ayad Nichols
[2024-09-09 19:36] LABS: INTERNATIONAL NORM RATIO 1.3 (0.9-1.1); Prothrombin Time 15.2 SEC (10.9-12.4)
[2024-09-09 19:39] LABS: PTT Heparin Drip 33.4 SEC (53-77.9)
[2024-09-09 19:41] LABS: ~Lactic Acid-LAB USE ONLY 1.4 mmol/L (0.5-2.0)
[2024-09-09] MEDS: Aspirin 81 MG TAB.CHEW 324 MG PO (19:59)
[2024-09-09] MEDS: iohexoL 350 MG/ML 100 ML INFUS..BTL 65 ML IV (20:13)
[2024-09-09] MEDS: Heparin Sodium,Porcine 5,000 UNIT/ML VIAL 4000 UNIT IVPUSH (20:20)
[2024-09-09] MEDS: Metoprolol Tartrate 25 MG TABLET PO (20:21)
[2024-09-09] MEDS: Heparin Sodium,Porcine/1/2NS 25,000 UNIT/250 ML IV.SOLN 8.66 UNIT IVCONT (20:25)
--- NOTE | 2024-09-09 20:37 | P.HPHOSP_ITS ---
History of Present Illness Date of Service: 09/09/24 Chief Complaint: Fatigue, fever, cough This is a 79-year-old male with pertinent history of pulmonary asbestosis with chronic cough, vzh-fhluvng-qdxrfsghw diabetes mellitus who presents to the emergency department for evaluation of fatigue, chills. Patient states he had sudden onset of midsternal chest pain 3 days ago that was worse with ambulation but did not relieve with rest. It was nonradiating and went away on its own. He did not try nitroglycerin for it. Patient states he has been feeling unwell for the past few weeks. Patient saw his vehicle and equipment cleaner on 08/29 and was prescribed p.o. prednisone. Patient completed 7 day course of p.o. prednisone without any relief or improvement. Patient states he was been having productive cough with yellowish sputum production that has been ongoing for the last 10-14 days. Also has been having chills with documented temperature around 100 degrees F. Has associated easy fatigability. Admits sore throat. Patient's was admitted 3 days ago in the setting of COVID pneumonia. He denies abdominal discomfort, changes in bowel habits. In the emergency department, white count found to be elevated and imaging concerning for bronchiectasis. Patient was given IV fluids and IV antibiotics. Also found to have elevated troponin and EKG revealed AFib with RVR. Review of Systems 2 Constitutional: Constitutional: Reports body ache(s), Reports chills, Reports fatigue, Reports fever(s) and Reports malaise Cardiovascular: Cardiovascular: Reports chest pain Respiratory: Respiratory: Reports cough Gastrointestinal: Gastrointestinal: Reports no additional gastrointestinal complaints Genitourinary: Genitourinary: Reports no additional male genitourinary complaints Endocrine: Endocrine: Reports fatigue PMFSH Medical History Sciatica Prediabetes Asbestosis Chronic cough Pertinent family history: Not significant due to age Social History Household Members: Family Housing: House Do you presently have visiting nurse or other home services: No Alcohol intake: never Smoked in Last 30 Days: No Use of substances other than those prescribed or required for medical reasons: No Advance Directives: Yes Advance Directives Information Provided: Yes Advance Directives on File: No Do you have a plan to hurt others: No Plan service: Yes Current occupational status: retired Meds Allergies Allergy/AdvReac Type Severity Reaction Status Date / Time No Known Allergies Allergy Verified 09/09/24 16:19 Active Medications: Current Medications Heparin Sodium (Porcine) (Heparin Sodium,Porcine 5,000 Unit/Ml Vial) 2,900 unit 40 unit/kg (2900 unit) IVPUSH PROTOCOL BOLUS PRN; Protocol PRN Reason: 40 unit/kg - Heparin Protocol Heparin Sodium (Porcine) (Heparin Sodium,Porcine 5,000 Unit/Ml Vial) 5,800 unit 80 unit/kg (5800 unit) IVPUSH PROTOCOL BOLUS PRN; Protocol PRN Reason: 80 unit/kg - Heparin Protocol Heparin Sodium/Sodium Chloride (Heparin Sodium,Porcine/1/2ns) 25,000 unit in 250 mls @ 0 mls/hr IVCONT .Q0M [facility]; Protocol Last Admin: 09/09/24 20:25 Dose: 12 units/kg/hr, 8.66 mls/hr Metoprolol Tartrate (Metoprolol Tartrate 25 Mg Tablet) 25 mg PO BID [facility]; Protocol Last Admin: 09/09/24 20:21 Dose: 25 mg Home Medications ?Medication ?Instructions ?Recorded ?Confirmed ?Last Taken ?Type metformin 500 mg tablet 1,000 mg PO BID 09/26/23 09/09/24 09/08/24 History naproxen sodium 220 mg capsule 220 mg PO DAILY PRN Pain 09/26/23 09/09/24 09/08/24 History (Aleve) acetaminophen 500 mg tablet 500 mg PO DAILY PRN Pain 09/09/24 09/09/24 09/08/24 History qdnvhjbmop-TN-XA-acetaminophen 2 cap PO DAILY PRN Allergies 09/09/24 09/09/24 09/08/24 History 6.25 mg-5 mg-10 mg-325 mg capsule phenylephrine HCl 10 mg tablet 10 mg PO DAILY PRN Allergies 09/09/24 09/09/24 09/09/24 History (Sudafed PE) Physical Exam 2 Vital Signs and Narrative: Vital Signs: Last Vital Signs Temp 99.6 F 09/09/24 19:48 Pulse 96 09/09/24 19:48 Resp 17 09/09/24 19:48 BP 142/80 H 10/21/24 19:54 Pulse Ox 97 09/09/24 19:48 O2 Del Method Room Air 09/09/24 19:48 O2 Flow Rate 2 09/09/24 18:33 BMI result Body Mass Index 24.9 Middle-aged male lying in bed in no distress Neck supple, no JVD Irregularly irregular, S1-S2 heard Bilateral crackles + Abdomen soft nontender, no guarding, no rigidity Patient is awake, alert and oriented to self, place, time and person ; no focal motor deficit Psych: Normal mood No pedal edema Results Labs 09/09/24 16:29 09/09/24 16:29 Labs: Laboratory Results - last 24 hr 09/09/24 09/09/24 09/09/24 16:29 17:02 19:24 MCV 93.8 MCH 29.3 MCHC 31.3 RDW 17.4 H Plt Count 130 L D MPV 12.0 Immature Gran % (Auto) Cancelled Neut % (Auto) Cancelled Lymph % (Auto) Cancelled [place] % (Auto) Cancelled Eos % (Auto) Cancelled Baso % (Auto) Cancelled Lymph # (Auto) Cancelled [place] # (Auto) Cancelled Eos # (Auto) Cancelled Baso # (Auto) Cancelled Abs Immat Gran (auto) Cancelled Absolute Neuts (auto) Cancelled Absolute Nucleated RBC 0.040 H Nucleated RBC % (auto) 0.1 Neutrophils % (Manual) 71 Band Neutrophils % 7 H Lymphocytes % (Manual) 8 L Atypical Lymphs % (Man) 6 Monocytes % (Manual) 1 L Metamyelocytes % 5 Myelocytes % 2 Abs Neuts (Manual) 30.4 H Lymphocytes # (Manual) 3.1 Atyp Lymphs # (Manual) 2.3 Monocytes # (Manual) 0.4 Metamyelocytes # 2.0 Myelocytes # 0.8 Toxic Vacuolation PRESENT Dohle Bodies Not Reportable Platelet Estimate NORMAL Plt Morphology Comment NORMAL RBC Morphology NOTED Polychromasia 1+ (0-2) Antunez-[place] Bodies PRESENT PT 15.2 H INR 1.3 H aPTT Heparin Protocol 33.4 L Anion Gap 17 Estim Creat Clear Calc 39.2 Estimated GFR 49 Random Glucose 128 H Lactic Acid 2.5 H* Lactic Acid F/U @ 2Hr 1.4 Calcium 9.1 Magnesium 1.9 Total Bilirubin 1.4 H AST 141 H ALT 50 H Alkaline Phosphatase 120 H Troponin I High Sens 46454.4 H* 8924.0 H* Total Protein 7.0 Albumin 3.9 Influenza Type A (PCR) NEGATIVE Influenza Type B (PCR) NEGATIVE RSV RNA Qual (PCR) NEGATIVE SARS-CoV-2 RNA (RT-PCR) NEGATIVE S. pyogenes GrpA MARTINE Positive A Imaging Radiologist's Impressions: Impressions Chest X-Ray 09/09/24 16:32 IMPRESSION: No acute disease. Electronically signed by: Marleny Reid MD 09/09/2024 06:08 PM EDT RP Assessment and Plan (1) NSTEMI (non-ST elevated myocardial infarction): Status: Acute (2) Atrial fibrillation with RVR: Status: Acute (3) Bronchiectasis: Status: Acute Plan This is a 79-year-old male with pertinent history of pulmonary asbestosis with chronic cough, lwt-fqbwovs-yykbmtump diabetes mellitus who presents to the emergency department for evaluation of fatigue, chills. #. NSTEMI: Will admit patient with cardiac monitoring. Initiated on aspirin, beta-lilli and IV heparin in the ER. Cardiology consulted. Obtaining echocardiogram. Also initiated statin #. Afib with RVR: B-lilli initiated. CHADsVASc score 3 #. Acute exacerbation of bronchiectasis with sepsis: Initiating levaquin. Resuscitated with IV crystalloids. Lactic acid and blood culture obtained. Grp A strep +. UA pending #. Acute lactic acidosis due to sepsis and metfomin use #. Elevated transaminases due to sepsis #. Non-insulin dependent diabetes milletus: Initiating accuchecks with SSI Med rec pending DVT prophylaxis: IV heparin DNR/DNI. Discussed with patient and son at bedside Admit as inpatient and will require two night minimum hospital stay for IV heparin, IV abx (as above), which is not possible in a lesser acute setting. Quality Stroke Does the patient have a stroke diagnosis?: No VTE Prior VTE?: No VTE Risk Level:: Medical - moderate - high VTE Device Contraindication: Treatment Not Indicated VTE Drug Contraindication: N/A - Med Ordered
[2024-09-09 21:11] LABS: Appearance Urine Clear; Color Urine Yellow; Glucose Urine UA Negative (Negative); Leukocyte Esterase Urine Negative (Negative); Nitrite Urine Negative (Negative); PH 5.5 (5.0-9.0); Specific Gravity - Urine >= 1.030 (1.005-1.025); Urine Blood Negative (Negative); Urine Ketones 15 mg/dL (Negative); Urine Protein Trace mg/dL (Neg-Trace)
[2024-09-09 21:13] LABS: Bacteria Urine None Seen (None Seen); Hyaline Casts Urine 0-2 /LPF (0-2); RBC Urine 0-2 /HPF (0-2); Squamous Epithelial Cell Urine 0-2 /HPF (0-2); WBC Urine 0-5 /HPF (0-5)
[2024-09-09 21:39] LABS: Glucose, Whole Blood 97 mg/dL (60-115)
[2024-09-09] MEDS: Atorvastatin Calcium 40 MG TABLET PO (21:46)
[2024-09-09] MEDS: levoFLOXacin/D5W 750 MG/150 ML PIGGYBACK 100 MG IV (21:46)
--- NOTE | 2024-09-09 22:01 | PHA.MEDREC ---
Addendum entered by Rene Murphy [facility] 09/09/24 22:49: MED REC CHECKED BY [facility] Addendum entered by Cindy Rosenbaum 09/09/24 22:26: Son confirmed his dad took a Sudafed 10mg tab as needed for allergies today and his dad takes a Dauquil Sever Cold and Flu 1 tab as needed for allergies yesterday. Original Note: Pharmacy Consult ? Medication Reconciliation Pharmacy has completed the medication reconciliation. Confirmed medications with son at bedside. The son confirmed his dads Metformin 500mg 1000mg BID and states he has an over abundance of that at home but was filling it at [facility] and she states he took it yesterday. His son confirmed he finished his Prednisone regimen last . he also stated his dad took a Sudafed tab this morning and a Dayquil tab last night but was not sure of the dosing and stated he was running home and will be back before we close tonight to confirm them. He confimred he is still taking the Naproxen 220mg tab 1 daily as needed for pain and stated his dad is taking a fast acting tylenol 500mg tab 1 daily as needed for pain.
[2024-09-10] VITALS (7 sets, daily range): BP systolic 122–147; BP diastolic 70–80; PULSE 78–90; RESP 16–20; TEMP 35.9–36.8; O2SAT 90–96
[2024-09-10 03:01] LABS: Anion Gap 15 (12-20); Blood Urea Nitrogen 18 mg/dL (9-16); Calcium 8.7 mg/dL (8.4-10.2); Carbon Dioxide 21 mmol/L (22-29); Chloride 111 mmol/L (96-108); Creatinine Clr Calc Pharmacy 45.1; Estimated Glomerular Filt Rate 58; Glucose Random 83 mg/dL (60-115); Potassium 4.3 mmol/L (3.3-5.1); Sodium 143 mmol/L (135-145)
[2024-09-10 03:02] LABS: PTT Heparin Drip 68.1 SEC (53-77.9)
--- NOTE | 2024-09-10 07:00 | CA_ITS ---
Transthoracic Echocardiogram Patient (Last, First, Middle): Ace Berkowitz W Gender: Male Date of : 1945 Age: 79 Procedure Date: 09/10/2024 Procedure Type: Transthoracic Echocardiogram Location: [facility] – [place] Height: 170.18 cm Weight: 72.12 kg BSA: 1.83 m2 Heart Rate: 82 bpm BP: 145 / 70 mmHg Data Processing Control Clerk: SB Referring MD: Nia Kuo MD Symptoms: NSTEMI Study Quality: Adequate ECG Rhythm: Sinus arrhythmia Conclusions: - Normal left ventricular cavity size. There is normal left ventricular wall thickness. The left ventricular systolic function is mildly decreased. The visually estimated ejection fraction is between 40-45%. - The anterolateral wall is hypokinetic. - The basal inferior segment is akinetic. - There is mild dilatation of the ascending aorta measuring 3.80 cm. Findings Procedure Information Contrast agent, definity, is being given per protocol without apparent complications. Left Ventricle Normal left ventricular cavity size. There is normal left ventricular wall thickness. The left ventricular systolic function is mildly decreased. The visually estimated ejection fraction is between 40-45%. There is evidence of regional wall motion abnormalities. Abnormal diastolic function is noted. Spectral Doppler is indicative of a pseudonormal filling pattern. Elevated filling pressures. Wall Motion Rest Echo Findings The anterolateral wall is hypokinetic. The basal inferior segment is akinetic. Right Ventricle Normal right ventricular cavity size and systolic function. Atria The left atrium is normal in size. Aortic Valve There is a normal trileaflet aortic valve. There is no aortic valve stenosis. There is no aortic valve regurgitation. Mitral Valve The mitral valve appears normal. There is trace mitral valve regurgitation. There is no mitral valve stenosis. Pulmonic Valve The pulmonic valve is normal. There is no pulmonic valve regurgitation. Tricuspid Valve Normal tricuspid valve structure. There is no tricuspid valve regurgitation. Normal right atrial pressure. There is no evidence of pulmonary hypertension. Great Vessels There is mild dilatation of the ascending aorta measuring 3.80 cm. The visualized portions of the pulmonary artery and branches are normal. Venous The inferior vena cava is normal in size and collapses greater than 50% with inspiration. Pericardium/Pleural There is no evidence of pericardial effusion. Prior Study Comparison Changes noted compared to prior study dated: 06/19/2020. EF 40-45% and RWMA. Measurements 2D Linear Measurements IVSd: 0.83 0.6-0.9/0.6-1.0 cm LVIDd: 5.40 3.9-5.3/4.2-5.9 cm LVIDd Index: 2.95 2.4-3.2/2.2-3.1 cm/m2 LVIDs: 4.09 2.0-3.6 cm LVPWd: 0.84 0.7-1.1 cm LA Diam: 3.60 2.7-3.8/3.0-4.0 cm LAIDs Index: 1.97 1.5-2.3 cm/m2 LV Mass: 202.99 67-162/88-224 g LV Mass Index: 110.92 43-95/49-115 g/m2 LVOT Diam: 2.10 3.0+(-)1.3 cm 2D Systolic Function EF 4C: 46.20 >55% EF 2C: 37.80 >55% EF BiP: 42.20 >55% Mitral Valve MV Pk E: 0.94 MV PK A: 0.59 MV Decel Time: 226.00 E/A: 1.60 E'Lateral: 5.22 E'Medial: 4.03 E/E' Med: 23.40 E/E' Lat: 18.10 PHT: 66.00 MVA PHT: 3.33 Decel [place]: 4.18 Aortic Valve AoV Pk Kel: 1.18 AoV Pk Grad: 6.00 RENETTA: 2.18 LVOT LVOT Pk Kel: 0.74 LVOT Mn Kel: 0.49 LVOT VTI: 0.14 LVOT Pk Grad: 2.00 LVOT Mn Grad: 1.00 LVOT Diam: 2.10 LVOT Area: 3.46 Diastolic Function MV Pk E: 0.94 MV Pk A: 0.59 E/A: 1.60 E'Medial: 4.03 E/E' Med: 23.40 E' Laterial: 5.22 E/E' Lat: 18.10 Right Ventricle TAPSE (mm): 17.30 TVS' Kel: 13.20 Tricuspid Valve TR Pk Kel: 2.51 TR Pk Grad: 25.00 RA Press: 3.00 RVSP: 28.00 Great Vessels Aorta Sinus of Valsalva: 3.50 2.0-3.5 cm Ao Asc: 3.80 2.1-3.4 cm Pulmonary Veins Pulm Vein S/D 0.70 Pulmonary Valve PV Pk Kel: 0.60 Peak PV Grad: 1.00 Updated in Other Vendor System with Status of Final Ayad Nichols MD electronically signed on 09/10/2024 2:14:57 PM with status of Final
[2024-09-10 07:08] LABS: Glucose, Whole Blood 76 mg/dL (60-115)
[2024-09-10 07:19] LABS: Hematocrit 36.9 % (42.0-52.0); Hemoglobin 11.5 g/dl (14.0-18.0); Mean Corpuscular HGB Conc 31.2 g/dl (31.0-36.0); Mean Corpuscular Hemoglobin 29.6 pg (27.0-33.0); Mean Corpuscular Volume 94.9 fL (80.0-98.0); PLT CLUMP 1; Red Blood Count 3.89 X10*6/uL (4.60-5.80); Red Cell Distribution Width 17.4 % (11.0-16.0)
[2024-09-10 07:20] LABS: INTERNATIONAL NORM RATIO 1.3 (0.9-1.1); Prothrombin Time 15.7 SEC (10.9-12.4)
[2024-09-10 07:31] LABS: White Blood Count 33.1 X10*3/uL (4.8-10.8)
[2024-09-10 07:48] LABS: Mean Platelet Volume 12.8 fL (9.4-12.4); Platelet Count 109 X10*3/uL (160-400)
[2024-09-10] MEDS: 0.9 % Sodium Chloride Flush 3 ML SYRINGE IVFLUSH ×3 (08:18→20:56)
[2024-09-10] MEDS: Aspirin 81 MG TAB.CHEW PO (08:19)
[2024-09-10] MEDS: Metoprolol Tartrate 25 MG TABLET PO ×2 (08:19→20:55)
[2024-09-10 08:59] LABS: Troponin-I High Sensitivity 11469.6 ng/L (<3.5-35.0)
[2024-09-10 10:43] LABS: PTT Heparin Drip 54.2 SEC (53-77.9)
[2024-09-10 10:55] LABS: Glucose, Whole Blood 194 mg/dL (60-115)
[2024-09-10] MEDS: Insulin Lispro 100 UNIT/ML 3 ML VIAL SUBCUT ×2 (12:07→16:53)
--- NOTE | 2024-09-10 13:02 | MHC.CM.PN ---
IMM 09/10. Pt self-care, lives at home with his , son and grandson. Pt occasionally uses a cane. Pts son will transport him home at discharge. HCP copy requested. PCP: Dr. Mode Thompson
--- NOTE | 2024-09-10 14:01 | PM.CNCAR ---
History of Present Illness History of Present Illness Date of Service: 09/10/24 Requesting physician: Pako Heath Chief complaint: PNA, NSTEMI, Afib Narrative: Pleasant 79 year gentleman with asbestosis and interstitial lung disease who is presenting with shortness of breath. He was diagnosed with pneumonia. He was noticed to be in AFib with RVR in the emergency department. He also had significantly elevated high sensitivity troponin level of more than 11,000. ECG was showing atrial fibrillation with diffuse upsloping ST depressions. He said over the last month he has experienced some pressure-like feeling in his chest off and on. He is not endorsing any symptoms currently. He is on antibiotics. Overall he is saying he is feeling better. He had some fevers before he presented but did not have any further fevers reportedly. Heart rates are better controlled. He is on heparin drip for NSTEMI. He is saying he walks independently. He has some memory issues and has been getting some help through his son and grandson. He does not drive anymore and usually the son helps him with groceries etc.. [facility] Past Medical History Medical History Sciatica Prediabetes Asbestosis Chronic cough Social History Social History Household Members: Spouse and Family Housing: House Do you presently have visiting nurse or other home services: No Alcohol intake: never Patient Tobacco Use Status: Never used Tobacco service: No Current occupational status: retired Meds Allergies Allergy/AdvReac Type Severity Reaction Status Date / Time No Known Allergies Allergy Verified 09/09/24 16:19 Active Medications: Current Medications Acetaminophen (Acetaminophen 325 Mg Tablet) 650 mg PO Q6H PRN PRN Reason: Pain, Mild (Pain Scale 1-3), fever or headache Aspirin (Aspirin 81 Mg Tab.Chew) 81 mg PO DAILY REPLACED BY [facility] Last Admin: 09/10/24 08:19 Dose: 81 mg Atorvastatin Calcium (Atorvastatin Calcium 40 Mg Tablet) 40 mg PO BEDTIME REPLACED BY [facility] Last Admin: 09/09/24 21:46 Dose: 40 mg Calcium Carbonate (Calcium Carbonate 750 Mg Tab.Chew) 750 mg PO Q4H PRN PRN Reason: Heartburn Glucose (Glucose Gel 15 Gm Gel..Gram.) 15 gm PO Q15M PRN; Protocol PRN Reason: per Hypoglycemia Standing Ord. Heparin Sodium (Porcine) (Heparin Sodium,Porcine 5,000 Unit/Ml Vial) 2,900 unit 40 unit/kg (2900 unit) IVPUSH PROTOCOL BOLUS PRN; Protocol PRN Reason: 40 unit/kg - Heparin Protocol Heparin Sodium (Porcine) (Heparin Sodium,Porcine 5,000 Unit/Ml Vial) 5,800 unit 80 unit/kg (5800 unit) IVPUSH PROTOCOL BOLUS PRN; Protocol PRN Reason: 80 unit/kg - Heparin Protocol Heparin Sodium/Sodium Chloride (Heparin Sodium,Porcine/1/2ns) 25,000 unit in 250 mls @ 0 mls/hr IVCONT .Q0M REPLACED BY [facility]; Protocol Last Titration: 09/10/24 10:50 Dose: 12 units/kg/hr, 8.66 mls/hr Dextrose (D10) 250 mls @ 750 mls/hr IV Q15M PRN; Protocol PRN Reason: per Hypoglycemia Standing Ord. Levofloxacin (Levaquin) 750 mg in 150 mls @ 100 mls/hr IV Q48H REPLACED BY [facility] Insulin Human Lispro (Insulin Lispro 100 Unit/Ml 3 Ml Vial) 0 unit SUBCUT QIDACHS REPLACED BY [facility]; Protocol Last Admin: 09/10/24 12:07 Dose: 2 unit Magnesium Hydroxide (Milk Of Magnesia 30 Ml Oral.Susp) 30 ml PO DAILY PRN PRN Reason: Constipation Melatonin (Melatonin 3 Mg Tablet) 6 mg PO BEDTIME PRN PRN Reason: Insomnia Metoprolol Tartrate (Metoprolol Tartrate 25 Mg Tablet) 25 mg PO BID REPLACED BY [facility]; Protocol Last Admin: 09/10/24 08:19 Dose: 25 mg Ondansetron HCl (Ondansetron Hcl 4 Mg/2 Ml Vial) 4 mg IVPUSH Q8H PRN PRN Reason: Nausea and Vomiting Sodium Chloride (0.9 % Sodium Chloride Flush 3 Ml Syringe) 3 ml IVFLUSH [facility] Last Admin: 09/10/24 08:18 Dose: 3 ml Home Medications ?Medication ?Instructions ?Recorded ?Confirmed ?Last Taken ?Type metformin 500 mg tablet 1,000 mg PO BID 09/26/23 09/09/24 09/08/24 History naproxen sodium 220 mg capsule 220 mg PO DAILY PRN Pain 1109/09/24 09/08/24 History (Aleve) acetaminophen 500 mg tablet 500 mg PO DAILY PRN Pain 09/09/24 09/09/24 09/08/24 History [id number]-acetaminophen 2 cap PO DAILY PRN Allergies 09/09/24 09/09/24 09/08/24 History 6.25 mg-5 mg-10 mg-325 mg capsule phenylephrine HCl 10 mg tablet 10 mg PO DAILY PRN Allergies 09/09/24 09/09/24 09/09/24 History (Sudafed PE) Physical Exam Vital Signs: Vital Signs: Last Vital Signs Temp 97.8 F 09/10/24 10:58 Pulse 85 09/10/24 10:58 Resp 20 09/10/24 10:58 BP 147/77 H 09/10/24 10:58 Pulse Ox 94 09/10/24 10:58 O2 Del Method Room Air 09/10/24 10:58 O2 Flow Rate 1.5 09/10/24 07:19 BMI result Body Mass Index 24.9 GENERAL APPEARANCE: in no acute distress, on supplemental oxygen. NECK: no carotid bruit, no jugular venous distention. SKIN: no suspicious lesions, warm and dry. HEART: no murmurs, irregular rate and rhythm. LUNGS: Crackles both lungs. ABDOMEN: soft, nontender. EXTREMITIES: no edema. PERIPHERAL PULSES: equal. NEUROLOGIC: No gross deficits, AAO X 3 Objective Labs and Meds 09/10/24 06:42 09/10/24 02:43 Lab results: Laboratory Results - last 24 hr 09/09/24 09/09/24 09/09/24 16:29 17:02 19:24 WBC 39.0 H* RBC 4.64 Hgb 13.6 L Hct 43.5 MCV 93.8 MCH 29.3 MCHC 31.3 RDW 17.4 H Plt Count 130 L D MPV 12.0 Immature Gran % (Auto) Cancelled Neut % (Auto) Cancelled Lymph % (Auto) Cancelled [place] % (Auto) Cancelled Eos % (Auto) Cancelled Baso % (Auto) Cancelled Lymph # (Auto) Cancelled [place] # (Auto) Cancelled Eos # (Auto) Cancelled Baso # (Auto) Cancelled Abs Immat Gran (auto) Cancelled Absolute Neuts (auto) Cancelled Absolute Nucleated RBC 0.040 H Nucleated RBC % (auto) 0.1 Neutrophils % (Manual) 71 Band Neutrophils % 7 H Lymphocytes % (Manual) 8 L Atypical Lymphs % (Man) 6 Monocytes % (Manual) 1 L Metamyelocytes % 5 Myelocytes % 2 Abs Neuts (Manual) 30.4 H Lymphocytes # (Manual) 3.1 Atyp Lymphs # (Manual) 2.3 Monocytes # (Manual) 0.4 Metamyelocytes # 2.0 Myelocytes # 0.8 Toxic Vacuolation PRESENT Dohle Bodies Not Reportable Platelet Estimate NORMAL Plt Morphology Comment NORMAL RBC Morphology NOTED Polychromasia 1+ (0-2) Antunez-Roca Bodies PRESENT Smear Path Review SEE NOTE PT 15.2 H INR 1.3 H aPTT Heparin Protocol 33.4 L Sodium 140 Potassium 4.2 Chloride 105 Carbon Dioxide 22 Anion Gap 17 BUN 17 H Creatinine 1.38 Estim Creat Clear Calc 39.2 Estimated GFR 49 POC Glucose Random Glucose 128 H Lactic Acid 2.5 H* Lactic Acid F/U @ 2Hr 1.4 Calcium 9.1 Magnesium 1.9 Total Bilirubin 1.4 H AST 141 H ALT 50 H Alkaline Phosphatase 120 H Troponin I High Sens 41744.4 H* 8924.0 H* Total Protein 7.0 Albumin 3.9 Urine Color Urine Appearance Urine pH Ur Specific [place] Urine Protein Urine Glucose (UA) Urine Ketones Urine Blood Urine Nitrite Ur Leukocyte Esterase Urine RBC Urine WBC Ur Squamous Epith Cells Urine Bacteria Hyaline Casts Influenza Type A (PCR) NEGATIVE Influenza Type B (PCR) NEGATIVE RSV RNA Qual (PCR) NEGATIVE SARS-CoV-2 RNA (RT-PCR) NEGATIVE S. pyogenes GrpA MARTINE Positive A 09/09/24 09/09/24 09/10/24 21:01 21:33 02:43 WBC RBC Hgb Hct MCV MCH MCHC RDW Plt Count MPV Immature Gran % (Auto) Neut % (Auto) Lymph % (Auto) [place] % (Auto) Eos % (Auto) Baso % (Auto) Lymph # (Auto) [place] # (Auto) Eos # (Auto) Baso # (Auto) Abs Immat Gran (auto) Absolute Neuts (auto) Absolute Nucleated RBC Nucleated RBC % (auto) Neutrophils % (Manual) Band Neutrophils % Lymphocytes % (Manual) Atypical Lymphs % (Man) Monocytes % (Manual) Metamyelocytes % Myelocytes % Abs Neuts (Manual) Lymphocytes # (Manual) Atyp Lymphs # (Manual) Monocytes # (Manual) Metamyelocytes # Myelocytes # Toxic Vacuolation Dohle Bodies Platelet Estimate Plt Morphology Comment RBC Morphology Polychromasia Antunez-Roca Bodies Smear Path Review PT INR aPTT Heparin Protocol 68.1 D Sodium 143 Potassium 4.3 Chloride 111 H Carbon Dioxide 21 L Anion Gap 15 BUN 18 H Creatinine 1.20 Estim Creat Clear Calc 45.1 Estimated GFR 58 POC Glucose 97 Random Glucose 83 Lactic Acid Lactic Acid F/U @ 2Hr Calcium 8.7 Magnesium Total Bilirubin AST ALT Alkaline Phosphatase Troponin I High Sens Total Protein Albumin Urine Color Yellow Urine Appearance Clear Urine pH 5.5 Ur Specific [place] >= 1.030 H Urine Protein Trace Urine Glucose (UA) Negative Urine Ketones 15 Urine Blood Negative Urine Nitrite Negative Ur Leukocyte Esterase Negative Urine RBC 0-2 Urine WBC 0-5 Ur Squamous Epith Cells 0-2 Urine Bacteria None Seen Hyaline Casts 0-2 Influenza Type A (PCR) Influenza Type B (PCR) RSV RNA Qual (PCR) SARS-CoV-2 RNA (RT-PCR) S. pyogenes GrpA MARTINE 09/10/24 09/10/24 09/10/24 06:42 07:04 10:02 WBC 33.1 H* RBC 3.89 L Hgb 11.5 L Hct 36.9 L MCV 94.9 MCH 29.6 MCHC 31.2 RDW 17.4 H Plt Count 109 L MPV 12.8 H Immature Gran % (Auto) Neut % (Auto) Lymph % (Auto) [place] % (Auto) Eos % (Auto) Baso % (Auto) Lymph # (Auto) [place] # (Auto) Eos # (Auto) Baso # (Auto) Abs Immat Gran (auto) Absolute Neuts (auto) Absolute Nucleated RBC 0.000 Nucleated RBC % (auto) 0.0 Neutrophils % (Manual) Band Neutrophils % Lymphocytes % (Manual) Atypical Lymphs % (Man) Monocytes % (Manual) Metamyelocytes % Myelocytes % Abs Neuts (Manual) Lymphocytes # (Manual) Atyp Lymphs # (Manual) Monocytes # (Manual) Metamyelocytes # Myelocytes # Toxic Vacuolation Dohle Bodies Platelet Estimate Plt Morphology Comment RBC Morphology Polychromasia Antunez-Roca Bodies Smear Path Review PT 15.7 H INR 1.3 H aPTT Heparin Protocol 54.2 D Sodium Potassium Chloride Carbon Dioxide Anion Gap BUN Creatinine Estim Creat Clear Calc Estimated GFR POC Glucose 76 Random Glucose Lactic Acid Lactic Acid F/U @ 2Hr Calcium Magnesium Total Bilirubin AST ALT Alkaline Phosphatase Troponin I High Sens 01007.6 H* Total Protein Albumin Urine Color Urine Appearance Urine pH Ur Specific [place] Urine Protein Urine Glucose (UA) Urine Ketones Urine Blood Urine Nitrite Ur Leukocyte Esterase Urine RBC Urine WBC Ur Squamous Epith Cells Urine Bacteria Hyaline Casts Influenza Type A (PCR) Influenza Type B (PCR) RSV RNA Qual (PCR) SARS-CoV-2 RNA (RT-PCR) S. pyogenes GrpA MARTINE 09/10/24 10:51 WBC RBC Hgb Hct MCV MCH MCHC RDW Plt Count MPV Immature Gran % (Auto) Neut % (Auto) Lymph % (Auto) [place] % (Auto) Eos % (Auto) Baso % (Auto) Lymph # (Auto) [place] # (Auto) Eos # (Auto) Baso # (Auto) Abs Immat Gran (auto) Absolute Neuts (auto) Absolute Nucleated RBC Nucleated RBC % (auto) Neutrophils % (Manual) Band Neutrophils % Lymphocytes % (Manual) Atypical Lymphs % (Man) Monocytes % (Manual) Metamyelocytes % Myelocytes % Abs Neuts (Manual) Lymphocytes # (Manual) Atyp Lymphs # (Manual) Monocytes # (Manual) Metamyelocytes # Myelocytes # Toxic Vacuolation Dohle Bodies Platelet Estimate Plt Morphology Comment RBC Morphology Polychromasia Antunez-Roca Bodies Smear Path Review PT INR aPTT Heparin Protocol Sodium Potassium Chloride Carbon Dioxide Anion Gap BUN Creatinine Estim Creat Clear Calc Estimated GFR POC Glucose 194 H Random Glucose Lactic Acid Lactic Acid F/U @ 2Hr Calcium Magnesium Total Bilirubin AST ALT Alkaline Phosphatase Troponin I High Sens Total Protein Albumin Urine Color Urine Appearance Urine pH Ur Specific [place] Urine Protein Urine Glucose (UA) Urine Ketones Urine Blood Urine Nitrite Ur Leukocyte Esterase Urine RBC Urine WBC Ur Squamous Epith Cells Urine Bacteria Hyaline Casts Influenza Type A (PCR) Influenza Type B (PCR) RSV RNA Qual (PCR) SARS-CoV-2 RNA (RT-PCR) S. pyogenes GrpA MARTINE Imaging Radiologist's impression: Impressions Chest X-Ray 09/09/24 16:32 IMPRESSION: No acute disease. Electronically signed by: Marleny Reid MD 09/09/2024 06:08 PM EDT RP Chest CT 09/09/24 19:52 IMPRESSION: Calcified pleural plaques, chronic right pleural thickening and small bowel pleural effusions likely sequelae of asbestosis. Groundglass attenuation in both upper lobes right greater than left with honeycombing in the right lower lobe. These composite findings are suspicious for chronic interstitial lung disease. There is mild bilateral lower lobe bronchiectasis. Fleischner guidelines were followed. Electronically signed by: Darrel Rosario MD 09/09/2024 08:34 PM EDT RP Assessment and Plan (1) Sepsis: Status: Acute (2) Atrial fibrillation with RVR: Status: Acute (3) NSTEMI (non-ST elevated myocardial infarction): Status: Acute Plan Pleasant 79-year-old gentleman who has background history of asbestosis and lung disease, diabetes, chronic kidney disease who is presenting with pneumonia, NSTEMI and AFib with RVR. He is on heparin drip for AFib and NSTEMI. I think we continue this for now. He is on antibiotics and feeling better. Baby aspirin 81 mg daily. High intensity statin therapy. Given advanced lung disease I think he will not be a surgical candidate in case we fine advanced coronary disease. I think we should load him with Plavix 300 mg and continue Plavix 75 mg daily from here onwards. We will check echocardiogram to assess LVEF and valvular function. As he improves further we will consider transfer to [facility] for potential coronary angiography. Thank you for allowing me to participate in the care of your patient. Please feel free to contact me if you have any questions. Procedures Date of Service Date of Service: 09/10/24
--- NOTE | 2024-09-10 14:20 | P.PNIM_ITS ---
Subjective Subjective Date of Service: 09/10/24 Interval History: No acute issues overnight. Notes breathing has improved since admission Review of Systems Denies chest pain Denies shortness of breath Denies nausea vomiting diarrhea Denies fever chills Physical Exam 2 Vital Signs: Vital Signs: Last Vital Signs Temp 97.8 F 09/10/24 10:58 Pulse 85 09/10/24 10:58 Resp 20 09/10/24 10:58 BP 147/77 H 09/10/24 10:58 Pulse Ox 94 09/10/24 10:58 O2 Del Method Room Air 09/10/24 10:58 O2 Flow Rate 1.5 09/10/24 07:19 BMI result Body Mass Index 24.9 Const: Other: Awake alert no acute distress Resp: Other: Bilateral end inspiratory crackles inferior sternal border to base of lungs. Cardio: Other: No S4; positive S1-S2; no S3 murmurs rubs or gallops GI: Other: Soft nontender nondistended normoactive bowel sounds Neuro: Other: Cranial nerves 2-12 grossly intact as tested. Motor is 5/5 all extremities. Sensation is intact. Cognition appropriate. Gait not observed Extrem: Other: No edema bilaterally Objective Data Active Medications Acetaminophen (Acetaminophen 325 Mg Tablet) 650 mg PO Q6H PRN PRN Reason: Pain, Mild (Pain Scale 1-3), fever or headache Amlodipine Besylate (Amlodipine Besylate 2.5 Mg Tablet) 2.5 mg PO DAILY [facility]; Protocol Aspirin (Aspirin 81 Mg Tab.Chew) 81 mg PO DAILY [facility] Last Admin: 09/10/24 08:19 Dose: 81 mg Documented By: AURELIO Atorvastatin Calcium (Atorvastatin Calcium 40 Mg Tablet) 40 mg PO BEDTIME [facility] Last Admin: 09/09/24 21:46 Dose: 40 mg Documented By: LAM Calcium Carbonate (Calcium Carbonate 750 Mg Tab.Chew) 750 mg PO Q4H PRN PRN Reason: Heartburn Clopidogrel Bisulfate (Clopidogrel Bisulfate 75 Mg Tablet) 75 mg PO DAILY [facility] Glucose (Glucose Gel 15 Gm Gel..Gram.) 15 gm PO Q15M PRN; Protocol PRN Reason: per Hypoglycemia Standing Ord. Heparin Sodium (Porcine) (Heparin Sodium,Porcine 5,000 Unit/Ml Vial) 2,900 unit 40 unit/kg (2900 unit) IVPUSH PROTOCOL BOLUS PRN; Protocol PRN Reason: 40 unit/kg - Heparin Protocol Heparin Sodium (Porcine) (Heparin Sodium,Porcine 5,000 Unit/Ml Vial) 5,800 unit 80 unit/kg (5800 unit) IVPUSH PROTOCOL BOLUS PRN; Protocol PRN Reason: 80 unit/kg - Heparin Protocol Heparin Sodium/Sodium Chloride (Heparin Sodium,Porcine/1/2ns) 25,000 unit in 250 mls @ 0 mls/hr IVCONT .Q0M [facility]; Protocol Last Titration: 09/10/24 10:50 Dose: 12 units/kg/hr, 8.66 mls/hr Documented By: AURELIO Co-signed By: LESSARL Dextrose ([id number]) 250 mls @ 750 mls/hr IV Q15M PRN; Protocol PRN Reason: per Hypoglycemia Standing Ord. Levofloxacin (Levaquin) 750 mg in 150 mls @ 100 mls/hr IV Q48H [facility] Insulin Human Lispro (Insulin Lispro 100 Unit/Ml 3 Ml Vial) 0 unit SUBCUT QIDACHS [facility]; Protocol Last Admin: 09/10/24 12:07 Dose: 2 unit Documented By: AURELIO Magnesium Hydroxide (Milk Of Magnesia 30 Ml Oral.Susp) 30 ml PO DAILY PRN PRN Reason: Constipation Melatonin (Melatonin 3 Mg Tablet) 6 mg PO BEDTIME PRN PRN Reason: Insomnia Metoprolol Tartrate (Metoprolol Tartrate 25 Mg Tablet) 25 mg PO BID [facility]; Protocol Last Admin: 09/10/24 08:19 Dose: 25 mg Documented By: AURELIO Ondansetron HCl (Ondansetron Hcl 4 Mg/2 Ml Vial) 4 mg IVPUSH Q8H PRN PRN Reason: Nausea and Vomiting Sodium Chloride (0.9 % Sodium Chloride Flush 3 Ml Syringe) 3 ml IVFLUSH QSHIFT [facility] Last Admin: 09/10/24 08:18 Dose: 3 ml Documented By: AURELIO Labs 09/10/24 06:42 09/10/24 02:43 Labs: Laboratory Results - last 24 hr 09/09/24 09/09/24 09/09/24 16:29 17:02 19:24 MCV 93.8 MCH 29.3 MCHC 31.3 RDW 17.4 H Plt Count 130 L D MPV 12.0 Immature Gran % (Auto) Cancelled Neut % (Auto) Cancelled Lymph % (Auto) Cancelled [place] % (Auto) Cancelled Eos % (Auto) Cancelled Baso % (Auto) Cancelled Lymph # (Auto) Cancelled [place] # (Auto) Cancelled Eos # (Auto) Cancelled Baso # (Auto) Cancelled Abs Immat Gran (auto) Cancelled Absolute Neuts (auto) Cancelled Absolute Nucleated RBC 0.040 H Nucleated RBC % (auto) 0.1 Neutrophils % (Manual) 71 Band Neutrophils % 7 H Lymphocytes % (Manual) 8 L Atypical Lymphs % (Man) 6 Monocytes % (Manual) 1 L Metamyelocytes % 5 Myelocytes % 2 Abs Neuts (Manual) 30.4 H Lymphocytes # (Manual) 3.1 Atyp Lymphs # (Manual) 2.3 Monocytes # (Manual) 0.4 Metamyelocytes # 2.0 Myelocytes # 0.8 Toxic Vacuolation PRESENT Dohle Bodies Not Reportable Platelet Estimate NORMAL Plt Morphology Comment NORMAL RBC Morphology NOTED Polychromasia 1+ (0-2) [place] Bodies PRESENT Smear Path Review SEE NOTE PT 15.2 H INR 1.3 H aPTT Heparin Protocol 33.4 L Anion Gap 17 Estim Creat Clear Calc 39.2 Estimated GFR 49 POC Glucose Random Glucose 128 H Lactic Acid 2.5 H* Lactic Acid F/U @ 2Hr 1.4 Calcium 9.1 Magnesium 1.9 Total Bilirubin 1.4 H AST 141 H ALT 50 H Alkaline Phosphatase 120 H Troponin I High Sens 13591.4 H* 8924.0 H* Total Protein 7.0 Albumin 3.9 Urine Color Urine Appearance Urine pH Ur Specific [place] Urine Protein Urine Glucose (UA) Urine Ketones Urine Blood Urine Nitrite Ur Leukocyte Esterase Urine RBC Urine WBC Ur Squamous Epith Cells Urine Bacteria Hyaline Casts Influenza Type A (PCR) NEGATIVE Influenza Type B (PCR) NEGATIVE RSV RNA Qual (PCR) NEGATIVE SARS-CoV-2 RNA (RT-PCR) NEGATIVE S. pyogenes GrpA MARTINE Positive A 09/09/24 09/09/24 09/10/24 21:01 21:33 02:43 MCV MCH MCHC RDW Plt Count MPV Immature Gran % (Auto) Neut % (Auto) Lymph % (Auto) [place] % (Auto) Eos % (Auto) Baso % (Auto) Lymph # (Auto) [place] # (Auto) Eos # (Auto) Baso # (Auto) Abs Immat Gran (auto) Absolute Neuts (auto) Absolute Nucleated RBC Nucleated RBC % (auto) Neutrophils % (Manual) Band Neutrophils % Lymphocytes % (Manual) Atypical Lymphs % (Man) Monocytes % (Manual) Metamyelocytes % Myelocytes % Abs Neuts (Manual) Lymphocytes # (Manual) Atyp Lymphs # (Manual) Monocytes # (Manual) Metamyelocytes # Myelocytes # Toxic Vacuolation Dohle Bodies Platelet Estimate Plt Morphology Comment RBC Morphology Polychromasia [place] Bodies Smear Path Review PT INR aPTT Heparin Protocol 68.1 D Anion Gap 15 Estim Creat Clear Calc 45.1 Estimated GFR 58 POC Glucose 97 Random Glucose 83 Lactic Acid Lactic Acid F/U @ 2Hr Calcium 8.7 Magnesium Total Bilirubin AST ALT Alkaline Phosphatase Troponin I High Sens Total Protein Albumin Urine Color Yellow Urine Appearance Clear Urine pH 5.5 Ur Specific [place] >= 1.030 H Urine Protein Trace Urine Glucose (UA) Negative Urine Ketones 15 Urine Blood Negative Urine Nitrite Negative Ur Leukocyte Esterase Negative Urine RBC 0-2 Urine WBC 0-5 Ur Squamous Epith Cells 0-2 Urine Bacteria None Seen Hyaline Casts 0-2 Influenza Type A (PCR) Influenza Type B (PCR) RSV RNA Qual (PCR) SARS-CoV-2 RNA (RT-PCR) S. pyogenes GrpA MARTINE 09/10/24 09/10/24 09/10/24 06:42 07:04 10:02 MCV 94.9 MCH 29.6 MCHC 31.2 RDW 17.4 H Plt Count 109 L MPV 12.8 H Immature Gran % (Auto) Neut % (Auto) Lymph % (Auto) [place] % (Auto) Eos % (Auto) Baso % (Auto) Lymph # (Auto) [place] # (Auto) Eos # (Auto) Baso # (Auto) Abs Immat Gran (auto) Absolute Neuts (auto) Absolute Nucleated RBC 0.000 Nucleated RBC % (auto) 0.0 Neutrophils % (Manual) Band Neutrophils % Lymphocytes % (Manual) Atypical Lymphs % (Man) Monocytes % (Manual) Metamyelocytes % Myelocytes % Abs Neuts (Manual) Lymphocytes # (Manual) Atyp Lymphs # (Manual) Monocytes # (Manual) Metamyelocytes # Myelocytes # Toxic Vacuolation Dohle Bodies Platelet Estimate Plt Morphology Comment RBC Morphology Polychromasia [place] Bodies Smear Path Review PT 15.7 H INR 1.3 H aPTT Heparin Protocol 54.2 D Anion Gap Estim Creat Clear Calc Estimated GFR POC Glucose 76 Random Glucose Lactic Acid Lactic Acid F/U @ 2Hr Calcium Magnesium Total Bilirubin AST ALT Alkaline Phosphatase Troponin I High Sens 15550.6 H* Total Protein Albumin Urine Color Urine Appearance Urine pH Ur Specific [place] Urine Protein Urine Glucose (UA) Urine Ketones Urine Blood Urine Nitrite Ur Leukocyte Esterase Urine RBC Urine WBC Ur Squamous Epith Cells Urine Bacteria Hyaline Casts Influenza Type A (PCR) Influenza Type B (PCR) RSV RNA Qual (PCR) SARS-CoV-2 RNA (RT-PCR) S. pyogenes GrpA MARTINE 09/10/24 10:51 MCV MCH MCHC RDW Plt Count MPV Immature Gran % (Auto) Neut % (Auto) Lymph % (Auto) [place] % (Auto) Eos % (Auto) Baso % (Auto) Lymph # (Auto) [place] # (Auto) Eos # (Auto) Baso # (Auto) Abs Immat Gran (auto) Absolute Neuts (auto) Absolute Nucleated RBC Nucleated RBC % (auto) Neutrophils % (Manual) Band Neutrophils % Lymphocytes % (Manual) Atypical Lymphs % (Man) Monocytes % (Manual) Metamyelocytes % Myelocytes % Abs Neuts (Manual) Lymphocytes # (Manual) Atyp Lymphs # (Manual) Monocytes # (Manual) Metamyelocytes # Myelocytes # Toxic Vacuolation Dohle Bodies Platelet Estimate Plt Morphology Comment RBC Morphology Polychromasia [place] Bodies Smear Path Review PT INR aPTT Heparin Protocol Anion Gap Estim Creat Clear Calc Estimated GFR POC Glucose 194 H Random Glucose Lactic Acid Lactic Acid F/U @ 2Hr Calcium Magnesium Total Bilirubin AST ALT Alkaline Phosphatase Troponin I High Sens Total Protein Albumin Urine Color Urine Appearance Urine pH Ur Specific [place] Urine Protein Urine Glucose (UA) Urine Ketones Urine Blood Urine Nitrite Ur Leukocyte Esterase Urine RBC Urine WBC Ur Squamous Epith Cells Urine Bacteria Hyaline Casts Influenza Type A (PCR) Influenza Type B (PCR) RSV RNA Qual (PCR) SARS-CoV-2 RNA (RT-PCR) S. 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 1.NSTEMI -continue heparin drip for a total of 48 hours -loaded with Plavix 300 mg x 1; 75 mg daily along with 81 mg of aspirin -high-dose statin -continue on telemetry 2.Afib with RVR -acceptable rate control -continue beta-blockade adjust as indicated 3.Acute exacerbation of bronchiectasis with sepsis (sepsis resolved) -continue Levaquin (2) 4.Non-insulin dependent diabetes milletus -acceptable control on current therapies -lispro correctional scale -add back outpatient therapies when clinically appropriate Lovenox DNR/DNI Requires ongoing hospitalization for IV heparin to treat NSTEMI as well as specialty consultation Quality Stroke Does the patient have a stroke diagnosis?: No VTE Prior VTE?: No VTE Risk Level:: Medical - moderate - high VTE Device Contraindication: Treatment Not Indicated VTE Drug Contraindication: N/A - Med Ordered
[2024-09-10] MEDS: amLODIPine Besylate 2.5 MG TABLET PO (15:24)
--- NOTE | 2024-09-10 16:01 | MHC.CM.PN ---
Received a copy of pts HCP, now on file.
[2024-09-10 16:10] LABS: Glucose, Whole Blood 160 mg/dL (60-115)
[2024-09-10] MEDS: Clopidogrel Bisulfate 300 MG TABLET PO (16:53)
[2024-09-10 21:01] LABS: Glucose, Whole Blood 146 mg/dL (60-115)
[2024-09-10] MEDS: Heparin Sodium,Porcine/1/2NS 25,000 UNIT/250 ML IV.SOLN 8.66 UNIT IVCONT (21:04)
[2024-09-10] MEDS: Atorvastatin Calcium 40 MG TABLET PO (21:11)
[2024-09-11] VITALS (7 sets, daily range): BP systolic 128–146; BP diastolic 72–82; PULSE 80–86; RESP 16–24; TEMP 36–36.7; O2SAT 92–95
--- NOTE | 2024-09-11 05:22 | PC.NURSE ---
CARE ASSUMED 23:15...ALERT..ORIENTED X3...DENIES SOB ON ROOM AIR...SAO2 91-95%..RARE HARSH COUGH BUT STATED COUGH SIGNIFICANTLY IMPROVED SINCE ADMISSION..HEPARIN INFUSING 12 U/KG/HR (8.66 CC/HR)..NO SIGNS OF BLEEDING...DENIES CHEST PAIN THROUGHOUT THE NIGHT..MONITOR= NSR TO SINUS ARRHYTHMIA HR 80'S-90'S...DENIES/OFFERS NO COMPLAINTS..REPOSITIONS SELF AD-JUVENAL IN BED..AM PTT-HD CURRENTLY DRAWN AND PENDING
[2024-09-11 05:23] LABS: PTT Heparin Drip 53.5 SEC (53-77.9)
[2024-09-11 05:30] LABS: Hematocrit 36.8 % (42.0-52.0); Hemoglobin 11.9 g/dl (14.0-18.0); Mean Corpuscular HGB Conc 32.3 g/dl (31.0-36.0); Mean Corpuscular Hemoglobin 29.7 pg (27.0-33.0); Mean Corpuscular Volume 91.8 fL (80.0-98.0); Mean Platelet Volume 12.1 fL (9.4-12.4); NRBC Pct Auto 0.1 /100WBC (0.0-0.2); Platelet Count 118 X10*3/uL (160-400); Red Blood Count 4.01 X10*6/uL (4.60-5.80); Red Cell Distribution Width 17.3 % (11.0-16.0); White Blood Count 25.3 X10*3/uL (4.8-10.8)
[2024-09-11 05:36] LABS: Alanine Aminotransferase 45 U/L (0-40); Albumin Level 3.6 g/dL (3.5-5.0); Alkaline Phosphatase 135 U/L (39-117); Anion Gap 16 (12-20); Aspartate Amino Transferase 84 U/L (5-37); Bilirubin Total 0.8 mg/dL (0.0-1.0); Blood Urea Nitrogen 23 mg/dL (9-16); Carbon Dioxide 21 mmol/L (22-29); Chloride 111 mmol/L (96-108); Estimated Glomerular Filt Rate 46; Glucose Fasting 119 mg/dL (60-99); Potassium 3.8 mmol/L (3.3-5.1); Sodium 144 mmol/L (135-145); Total Protein 6.5 g/dL (6.5-8.0)
[2024-09-11 05:55] LABS: Band Neutrophils Percent 8 % (3-5); Lymphocytes Percent Manual 8 % (20-40); Metamyelocytes Absolute 0.5 X10*3/uL; Metamyelocytes Percent 2 %; Monocytes Absolute Manual 2.8 X10*3/uL (0.1-1.2); Monocytes Percent Manual 11 % (2-11); Neutrophils Percent Manual 71 % (45-73)
[2024-09-11 05:56] LABS: RBC Morphology NOTED
[2024-09-11 06:00] LABS: Ovalocytes 1+ (5-14) /OIF; Platelet Estimate DECREASED (NORMAL); Polychromasia 1+ (0-2) /OIF
[2024-09-11 06:01] LABS: Platelet Morphology Comment NORMAL
[2024-09-11 06:28] LABS: Troponin-I High Sensitivity 7997.1 ng/L (<3.5-35.0)
[2024-09-11 07:03] LABS: Glucose, Whole Blood 115 mg/dL (60-115)
[2024-09-11] MEDS: Clopidogrel Bisulfate 75 MG TABLET PO (09:26)
[2024-09-11] MEDS: Metoprolol Tartrate 25 MG TABLET PO ×2 (09:26→21:15)
[2024-09-11] MEDS: amLODIPine Besylate 2.5 MG TABLET PO (09:26)
[2024-09-11] MEDS: 0.9 % Sodium Chloride Flush 3 ML SYRINGE IVFLUSH ×3 (09:26→21:16)
[2024-09-11] MEDS: Aspirin 81 MG TAB.CHEW PO (09:27)
--- NOTE | 2024-09-11 09:51 | PM.PNCARD ---
Subjective Subjective Date of Service: 09/11/24 Interval history: Seen and examined at bedside. Pain free. On hep gtt. Physical Exam Vital Signs: Last Vital Signs Temp 98.0 F 09/11/24 07:02 Pulse 85 09/11/24 07:02 Resp 20 09/11/24 07:02 BP 141/82 H 09/11/24 07:02 Pulse Ox 92 09/11/24 07:02 O2 Del Method Room Air 09/11/24 07:02 O2 Flow Rate 1.5 09/10/24 07:19 BMI result Body Mass Index 24.9 GENERAL APPEARANCE: in no acute distress, on supplemental oxygen. NECK: no carotid bruit, no jugular venous distention. SKIN: no suspicious lesions, warm and dry. HEART: no murmurs, regular rate and rhythm. LUNGS: Crackles both lungs. ABDOMEN: soft, nontender. EXTREMITIES: no edema. PERIPHERAL PULSES: equal. NEUROLOGIC: No gross deficits, AAO X 3 Objective Labs and Meds 09/11/24 05:07 09/11/24 05:07 Lab results: Laboratory Results - last 24 hr 09/10/24 09/10/24 09/10/24 10:02 10:51 16:07 WBC RBC Hgb Hct MCV MCH MCHC RDW Plt Count MPV Immature Gran % (Auto) Neut % (Auto) Lymph % (Auto) [place] % (Auto) Eos % (Auto) Baso % (Auto) Lymph # (Auto) [place] # (Auto) Eos # (Auto) Baso # (Auto) Abs Immat Gran (auto) Absolute Neuts (auto) Absolute Nucleated RBC Nucleated RBC % (auto) Neutrophils % (Manual) Band Neutrophils % Lymphocytes % (Manual) Monocytes % (Manual) Metamyelocytes % Abs Neuts (Manual) Lymphocytes # (Manual) Monocytes # (Manual) Metamyelocytes # Platelet Estimate Plt Morphology Comment RBC Morphology Polychromasia Ovalocytes aPTT Heparin Protocol 54.2 D Sodium Potassium Chloride Carbon Dioxide Anion Gap BUN Creatinine Estim Creat Clear Calc Estimated GFR POC Glucose 194 H 160 H Fasting Glucose Calcium Total Bilirubin AST ALT Alkaline Phosphatase Troponin I High Sens Total Protein Albumin 09/10/24 09/11/24 09/11/24 20:52 05:07 06:53 WBC 25.3 H RBC 4.01 L Hgb 11.9 L Hct 36.8 L MCV 91.8 MCH 29.7 MCHC 32.3 RDW 17.3 H Plt Count 118 L MPV 12.1 Immature Gran % (Auto) Cancelled Neut % (Auto) Cancelled Lymph % (Auto) Cancelled [place] % (Auto) Cancelled Eos % (Auto) Cancelled Baso % (Auto) Cancelled Lymph # (Auto) Cancelled [place] # (Auto) Cancelled Eos # (Auto) Cancelled Baso # (Auto) Cancelled Abs Immat Gran (auto) Cancelled Absolute Neuts (auto) Cancelled Absolute Nucleated RBC 0.030 H Nucleated RBC % (auto) 0.1 Neutrophils % (Manual) 71 Band Neutrophils % 8 H Lymphocytes % (Manual) 8 L Monocytes % (Manual) 11 Metamyelocytes % 2 Abs Neuts (Manual) 20.0 H Lymphocytes # (Manual) 2.0 Monocytes # (Manual) 2.8 H Metamyelocytes # 0.5 Platelet Estimate DECREASED Plt Morphology Comment NORMAL RBC Morphology NOTED Polychromasia 1+ (0-2) Ovalocytes 1+ (5-14) aPTT Heparin Protocol 53.5 Sodium 144 Potassium 3.8 Chloride 111 H Carbon Dioxide 21 L Anion Gap 16 BUN 23 H Creatinine 1.46 H Estim Creat Clear Calc 37.0 Estimated GFR 46 POC Glucose 146 H 115 Fasting Glucose 119 H Calcium 9.0 Total Bilirubin 0.8 AST 84 H ALT 45 H Alkaline Phosphatase 135 H Troponin I High Sens 7997.1 H* Total Protein 6.5 Albumin 3.6 Progress Note: A&P Assessment and plan (1) Sepsis: Status: Acute (2) Atrial fibrillation with RVR: Status: Acute (3) NSTEMI (non-ST elevated myocardial infarction): Status: Acute Plan 79-year-old gentleman who has presented with pneumonia, AFib with RVR and NSTEMI. He was getting chest discomfort at home over the last month. ECHO has shown lateral and inferior wall motion abnormalities. He has been on aspirin, Plavix and heparin drip. Blood pressure is well controlled. Discussed with son in detail about cardiac cath. He will talk with Ace and decide about transfer to [facility]. We will follow along. Time Spent With Patient Time: Total time managing care of this patient today ____ minutes. Progress Note: Quality Stroke Does the patient have a stroke diagnosis?: No Procedures Date of Service Date of Service: 09/11/24
[2024-09-11 11:14] LABS: Glucose, Whole Blood 236 mg/dL (60-115)
[2024-09-11 11:14] LABS: PTT Heparin Drip 51.4 SEC (53-77.9)
--- NOTE | 2024-09-11 13:54 | MHC.CM.PN ---
Pt is not ready for DC, he requires ongoing hosp care for IV Heparin to [place] NSTEMI. CM will follow and assist with DC plan.
--- NOTE | 2024-09-11 14:24 | P.CDIM_ITS ---
PROVIDER RESPONSE TEXT: To clarify, the appropriate diagnosis supported by the clinical indicators: Persistent atrial fibrillation QUERY TEXT: PHYSICIAN'S DOCUMENTATION REQUEST Date of Query: 09/11/2024 08:18 AM EDT Patient Name: Ace Berkowitz Admit Date: 09/10/2024 Dear Pako Heath DO, A review of the medical record indicates additional documentation may be needed. Please review below and update the documentation accordingly. Clinical Indicators: Progress note: Afib with RVR acceptable rate control continue beta-blockade adjust as indicated. Cardiology consult note: Heart rate better controlled. ECG showing atrial fibrillation with diffuse u psloping ST depressions. If possible, please provide further specificity regarding atrial fibrillation, such as: Paroxysmal atrial fibrillation Persistent atrial fibrillation Long lasting persistent atrial fibrillation: Permanent atrial fibrillation Other (explain) Clinically unable to determine (explain) Thank you, Amber Tavera, CCS, CDIS Use of terms such as suspected, likely, concern for, or probable (associated with a specific diagnosi s that is being evaluated, monitored, or treated as if it exists) are acceptable and can be coded in the inpatient se tting, when documented at the time of discharge. Please use your independent medical judgment in providing your response. THIS QUERY IS PART OF THE PERMANENT MEDICAL RECORD
--- NOTE | 2024-09-11 14:24 | P.CDIM_ITS ---
PROVIDER RESPONSE TEXT: To clarify, the appropriate diagnosis supported by the clinical indicators: CKD, please provide stage: 3a QUERY TEXT: PHYSICIAN'S DOCUMENTATION REQUEST Date of Query: 09/11/2024 07:36 AM EDT Patient Name: Ace Berkowitz Admit Date: 09/10/2024 Dear Pako Heath DO, A review of the medical record indicates additional documentation may be needed. Please review below and update the documentation accordingly. Clinical Indicators: Cardiology consult note dated 09/10 - 79 year old gentleman who has background history of asbestosis and lung disease, diabetes, chronic kidney disease. Bun 23 Cr. 1.46 H Gfr 48 Please clarify which of the following accurately represents the patient's stage of the noted CKD: CKD, please provide stage 1, 2, 3a, 3b, 4 etc. Other (explain) Clinically unable to determine (explain) Thank you, Amber Tavera, CCS, CDIS Use of terms such as suspected, likely, concern for, or probable (associated with a specific diagnosi s that is being evaluated, monitored, or treated as if it exists) are acceptable and can be coded in the inpatient se tting, when documented at the time of discharge. Please use your independent medical judgment in providing your response. THIS QUERY IS PART OF THE PERMANENT MEDICAL RECORD
--- NOTE | 2024-09-11 14:43 | P.PNIM_ITS ---
Subjective Subjective Date of Service: 09/11/24 Interval History: No acute issues overnight. No chest pain or dysrhythmias on monitor Review of Systems Denies chest pain Denies shortness of breath Denies nausea vomiting diarrhea Denies fever chills Physical Exam 2 Vital Signs: Vital Signs: Last Vital Signs Temp 97.2 F 09/11/24 11:04 Pulse 82 09/11/24 11:04 Resp 20 09/11/24 07:02 BP 141/73 H 09/11/24 11:04 Pulse Ox 95 09/11/24 11:04 O2 Del Method Room Air 09/11/24 11:04 O2 Flow Rate 1.5 09/10/24 07:19 BMI result Body Mass Index 24.9 Const: Other: Awake alert no acute distress Resp: Other: Bilateral end inspiratory crackles inferior sternal border to base of lungs. Cardio: Other: No S4; positive S1-S2; no S3 murmurs rubs or gallops GI: Other: Soft nontender nondistended normoactive bowel sounds Neuro: Other: Cranial nerves 2-12 grossly intact as tested. Motor is 5/5 all extremities. Sensation is intact. Cognition appropriate. Gait not observed Extrem: Other: No edema bilaterally Objective Data Active Medications Acetaminophen (Acetaminophen 325 Mg Tablet) 650 mg PO Q6H PRN PRN Reason: Pain, Mild (Pain Scale 1-3), fever or headache Amlodipine Besylate (Amlodipine Besylate 2.5 Mg Tablet) 2.5 mg PO DAILY [facility]; Protocol Last Admin: 09/11/24 09:26 Dose: 2.5 mg Documented By: EDYTA Aspirin (Aspirin 81 Mg Tab.Chew) 81 mg PO DAILY [facility] Last Admin: 09/11/24 09:27 Dose: 81 mg Documented By: EDYTA Atorvastatin Calcium (Atorvastatin Calcium 40 Mg Tablet) 40 mg PO BEDTIME [facility] Last Admin: 09/10/24 21:11 Dose: 40 mg Documented By: SUPPLEK Calcium Carbonate (Calcium Carbonate 750 Mg Tab.Chew) 750 mg PO Q4H PRN PRN Reason: Heartburn Clopidogrel Bisulfate (Clopidogrel Bisulfate 75 Mg Tablet) 75 mg PO DAILY [facility] Last Admin: 09/11/24 09:26 Dose: 75 mg Documented By: EDYTA Glucose (Glucose Gel 15 Gm Gel..Gram.) 15 gm PO Q15M PRN; Protocol PRN Reason: per Hypoglycemia Standing Ord. Heparin Sodium (Porcine) (Heparin Sodium,Porcine 5,000 Unit/Ml Vial) 2,900 unit 40 unit/kg (2900 unit) IVPUSH PROTOCOL BOLUS PRN; Protocol PRN Reason: 40 unit/kg - Heparin Protocol Heparin Sodium (Porcine) (Heparin Sodium,Porcine 5,000 Unit/Ml Vial) 5,800 unit 80 unit/kg (5800 unit) IVPUSH PROTOCOL BOLUS PRN; Protocol PRN Reason: 80 unit/kg - Heparin Protocol Heparin Sodium/Sodium Chloride (Heparin Sodium,Porcine/1/2ns) 25,000 unit in 250 mls @ 0 mls/hr IVCONT .Q0M [facility]; Protocol Last Titration: 09/11/24 11:29 Dose: 14 units/kg/hr, 10.11 mls/hr Documented By: EDYTA Co-signed By: MICHELE Dextrose ([id number]) 250 mls @ 750 mls/hr IV Q15M PRN; Protocol PRN Reason: per Hypoglycemia Standing Ord. Levofloxacin (Levaquin) 750 mg in 150 mls @ 100 mls/hr IV Q48H [facility] Insulin Human Lispro (Insulin Lispro 100 Unit/Ml 3 Ml Vial) 0 unit SUBCUT QIDACHS [facility]; Protocol Last Admin: 09/11/24 09:31 Dose: Not Given Documented By: EDYTA Non-Admin Reason: no coverage Magnesium Hydroxide (Milk Of Magnesia 30 Ml Oral.Susp) 30 ml PO DAILY PRN PRN Reason: Constipation Melatonin (Melatonin 3 Mg Tablet) 6 mg PO BEDTIME PRN PRN Reason: Insomnia Metoprolol Tartrate (Metoprolol Tartrate 25 Mg Tablet) 25 mg PO BID [facility]; Protocol Last Admin: 09/11/24 09:26 Dose: 25 mg Documented By: EDYTA Ondansetron HCl (Ondansetron Hcl 4 Mg/2 Ml Vial) 4 mg IVPUSH Q8H PRN PRN Reason: Nausea and Vomiting Sodium Chloride (0.9 % Sodium Chloride Flush 3 Ml Syringe) [address] [facility] Last Admin: 09/11/24 09:26 Dose: 3 ml Documented By: EDYTA Labs 09/11/24 05:07 09/11/24 05:07 Labs: Laboratory Results - last 24 hr 09/10/24 09/10/24 09/11/24 16:07 20:52 05:07 MCV 91.8 MCH 29.7 MCHC 32.3 RDW 17.3 H Plt Count 118 L MPV 12.1 Immature Gran % (Auto) Cancelled Neut % (Auto) Cancelled Lymph % (Auto) Cancelled [place] % (Auto) Cancelled Eos % (Auto) Cancelled Baso % (Auto) Cancelled Lymph # (Auto) Cancelled [place] # (Auto) Cancelled Eos # (Auto) Cancelled Baso # (Auto) Cancelled Abs Immat Gran (auto) Cancelled Absolute Neuts (auto) Cancelled Absolute Nucleated RBC 0.030 H Nucleated RBC % (auto) 0.1 Neutrophils % (Manual) 71 Band Neutrophils % 8 H Lymphocytes % (Manual) 8 L Monocytes % (Manual) 11 Metamyelocytes % 2 Abs Neuts (Manual) 20.0 H Lymphocytes # (Manual) 2.0 Monocytes # (Manual) 2.8 H Metamyelocytes # 0.5 Platelet Estimate DECREASED Plt Morphology Comment NORMAL RBC Morphology NOTED Polychromasia 1+ (0-2) Ovalocytes 1+ (5-14) aPTT Heparin Protocol 53.5 Anion Gap 16 Estim Creat Clear Calc 37.0 Estimated GFR 46 POC Glucose 160 H 146 H Fasting Glucose 119 H Calcium 9.0 Total Bilirubin 0.8 AST 84 H ALT 45 H Alkaline Phosphatase 135 H Troponin I High Sens 7997.1 H* Total Protein 6.5 Albumin 3.6 09/11/24 09/11/24 09/11/24 06:53 10:57 11:07 MCV MCH MCHC RDW Plt Count MPV Immature Gran % (Auto) Neut % (Auto) Lymph % (Auto) [place] % (Auto) Eos % (Auto) Baso % (Auto) Lymph # (Auto) [place] # (Auto) Eos # (Auto) Baso # (Auto) Abs Immat Gran (auto) Absolute Neuts (auto) Absolute Nucleated RBC Nucleated RBC % (auto) Neutrophils % (Manual) Band Neutrophils % Lymphocytes % (Manual) Monocytes % (Manual) Metamyelocytes % Abs Neuts (Manual) Lymphocytes # (Manual) Monocytes # (Manual) Metamyelocytes # Platelet Estimate Plt Morphology Comment RBC Morphology Polychromasia Ovalocytes aPTT Heparin Protocol 51.4 L Anion Gap Estim Creat Clear Calc Estimated GFR POC Glucose 115 236 H Fasting Glucose Calcium Total Bilirubin AST ALT Alkaline Phosphatase Troponin I High Sens Total Protein Albumin Microbiology Microbiology Results: Microbiology 09/09/24 17:06 Blood Culture - Preliminary Blood - Venous No growth after 24 hours. 09/09/24 17:02 Blood Culture - Preliminary Blood - Venous No growth after 24 hours. 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 1.NSTEMI -continue heparin drip pending possible transfer to [facility]; patient wishes to speak with son prior to transfer -loaded with Plavix 300 mg x 1; 75 mg daily along with 81 mg of aspirin -high-dose statin -continue on telemetry 2.Afib with RVR -acceptable rate control -continue beta-blockade adjust as indicated 3.Acute exacerbation of bronchiectasis with sepsis (sepsis resolved) -continue Levaquin (3) 4.Non-insulin dependent diabetes milletus -acceptable control on current therapies -lispro correctional scale -add back outpatient therapies when clinically appropriate Lovenox DNR/DNI Requires ongoing hospitalization for IV heparin to treat NSTEMI as well as specialty consultation Quality Stroke Does the patient have a stroke diagnosis?: No VTE Prior VTE?: No VTE Risk Level:: Medical - moderate - high VTE Device Contraindication: Treatment Not Indicated VTE Drug Contraindication: N/A - Med Ordered
[2024-09-11 15:07] LABS: Glucose, Whole Blood 214 mg/dL (60-115)
[2024-09-11] MEDS: Insulin Lispro 100 UNIT/ML 3 ML VIAL SUBCUT ×2 (15:12→21:16)
[2024-09-11 15:16] LABS: PTT Heparin Drip 55.6 SEC (53-77.9)
--- NOTE | 2024-09-11 15:18 | PM.DS ---
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 Patient states he had sudden onset of midsternal chest pain 3 days ago that was worse with ambulation but did not relieve with rest. It was nonradiating and went away on its own. He did not try nitroglycerin for it. Patient states he has been feeling unwell for the past few weeks. Patient saw his button grader on 08/29 and was prescribed p.o. prednisone. Patient completed 7 day course of p.o. prednisone without any relief or improvement. Patient states he was been having productive cough with yellowish sputum production that has been ongoing for the last 10-14 days. Also has been having chills with documented temperature around 100 degrees F. Has associated easy fatigability. Admits sore throat. Patient's was admitted 3 days ago in the setting of COVID pneumonia. He denies abdominal discomfort, changes in bowel habits. In the emergency department, white count found to be elevated and imaging concerning for bronchiectasis. Patient was given IV fluids and IV antibiotics. Also found to have elevated troponin and EKG revealed AFib with RVR. Hospital course Admitted to telemetry. Rate control with 1 dose of IV Lopressor. Remains in AFib but with controlled ventricular rate throughout his hospitalization. Troponin peak 38072. Has a history of pulmonary asbestosis and thought to have some bronchiectasis and treated with Levaquin renally dosed. Initial leukemoid reaction of 33 K... Twenty-five K on discharge. No fever chills. He was maintained on a heparin drip. 2D echo was done and read as LVEF 40-45%. Anterior lateral wall hypokinetic; basilar inferior segment akinetic. Discussed with Cardiology and decision made between Cardiology and family to transfer to [facility] for cardiac catheterization. Time Attestation Discharge Coordination Time (in mins): 35 Quality: Safe Use of Opioids Does Pt have an Active Cancer Diagnosis on the Problem List?: No Quality: Stroke Does the patient have a stroke diagnosis?: No Physical Exam Vital Signs: Vital Signs: Last Vital Signs Temp 97.2 F 09/11/24 11:04 Pulse 82 09/11/24 11:04 Resp 20 09/11/24 07:02 BP 141/73 H 09/11/24 11:04 Pulse Ox 95 09/11/24 11:04 O2 Del Method Room Air 09/11/24 11:04 O2 Flow Rate 1.5 09/10/24 07:19 BMI result Body Mass Index 24.9 Const: Other: Awake alert no acute distress Resp: Other: Bilateral end inspiratory crackles inferior sternal border to base of lungs.... Unchanged since admission Cardio: Other: No S4; positive S1-S2; no S3 murmurs rubs or gallops GI: Other: Soft nontender nondistended normoactive bowel sounds Neuro: Other: Cranial nerves 2-12 grossly intact as tested. Motor is 5/5 all extremities. Sensation is intact. Cognition appropriate. Gait not observed Extrem: Other: No edema bilaterally DS: Data Data Completed and Pending Labs on day of discharge: Laboratory Results - last 24 hr 09/10/24 09/10/24 09/11/24 16:07 20:52 05:07 WBC 25.3 H RBC 4.01 L Hgb 11.9 L Hct 36.8 L MCV 91.8 MCH 29.7 MCHC 32.3 RDW 17.3 H Plt Count 118 L MPV 12.1 Immature Gran % (Auto) Cancelled Neut % (Auto) Cancelled Lymph % (Auto) Cancelled [place] % (Auto) Cancelled Eos % (Auto) Cancelled Baso % (Auto) Cancelled Lymph # (Auto) Cancelled [place] # (Auto) Cancelled Eos # (Auto) Cancelled Baso # (Auto) Cancelled Abs Immat Gran (auto) Cancelled Absolute Neuts (auto) Cancelled Absolute Nucleated RBC 0.030 H Nucleated RBC % (auto) 0.1 Neutrophils % (Manual) 71 Band Neutrophils % 8 H Lymphocytes % (Manual) 8 L Monocytes % (Manual) 11 Metamyelocytes % 2 Abs Neuts (Manual) 20.0 H Lymphocytes # (Manual) 2.0 Monocytes # (Manual) 2.8 H Metamyelocytes # 0.5 Platelet Estimate DECREASED Plt Morphology Comment NORMAL RBC Morphology NOTED Polychromasia 1+ (0-2) Ovalocytes 1+ (5-14) aPTT Heparin Protocol 53.5 Sodium 144 Potassium 3.8 Chloride 111 H Carbon Dioxide 21 L Anion Gap 16 BUN 23 H Creatinine 1.46 H Estim Creat Clear Calc 37.0 Estimated GFR 46 POC Glucose 160 H 146 H Fasting Glucose 119 H Calcium 9.0 Total Bilirubin 0.8 AST 84 H ALT 45 H Alkaline Phosphatase 135 H Troponin I High Sens 7997.1 H* Total Protein 6.5 Albumin 3.6 09/11/24 09/11/24 09/11/24 06:53 10:57 11:07 WBC RBC Hgb Hct MCV MCH MCHC RDW Plt Count MPV Immature Gran % (Auto) Neut % (Auto) Lymph % (Auto) [place] % (Auto) Eos % (Auto) Baso % (Auto) Lymph # (Auto) [place] # (Auto) Eos # (Auto) Baso # (Auto) Abs Immat Gran (auto) Absolute Neuts (auto) Absolute Nucleated RBC Nucleated RBC % (auto) Neutrophils % (Manual) Band Neutrophils % Lymphocytes % (Manual) Monocytes % (Manual) Metamyelocytes % Abs Neuts (Manual) Lymphocytes # (Manual) Monocytes # (Manual) Metamyelocytes # Platelet Estimate Plt Morphology Comment RBC Morphology Polychromasia Ovalocytes aPTT Heparin Protocol 51.4 L Sodium Potassium Chloride Carbon Dioxide Anion Gap BUN Creatinine Estim Creat Clear Calc Estimated GFR POC Glucose 115 236 H Fasting Glucose Calcium Total Bilirubin AST ALT Alkaline Phosphatase Troponin I High Sens Total Protein Albumin 09/11/24 09/11/24 15:00 15:02 WBC RBC Hgb Hct MCV MCH MCHC RDW Plt Count MPV Immature Gran % (Auto) Neut % (Auto) Lymph % (Auto) [place] % (Auto) Eos % (Auto) Baso % (Auto) Lymph # (Auto) [place] # (Auto) Eos # (Auto) Baso # (Auto) Abs Immat Gran (auto) Absolute Neuts (auto) Absolute Nucleated RBC Nucleated RBC % (auto) Neutrophils % (Manual) Band Neutrophils % Lymphocytes % (Manual) Monocytes % (Manual) Metamyelocytes % Abs Neuts (Manual) Lymphocytes # (Manual) Monocytes # (Manual) Metamyelocytes # Platelet Estimate Plt Morphology Comment RBC Morphology Polychromasia Ovalocytes aPTT Heparin Protocol 55.6 Sodium Potassium Chloride Carbon Dioxide Anion Gap BUN Creatinine Estim Creat Clear Calc Estimated GFR POC Glucose 214 H Fasting Glucose Calcium Total Bilirubin AST ALT Alkaline Phosphatase Troponin I High Sens Total Protein Albumin Preliminary micro results at discharge 09/09/24 17:06 Blood Culture - Preliminary Blood - Venous No growth after 24 hours. 09/09/24 17:02 Blood Culture - Preliminary Blood - Venous No growth after 24 hours. Discharge Plan Discharge Patient Disposition: Xfer Acute Care Hospital Discharge Diagnosis: NSTEMI Referrals: Mode Thompson MD [Primary Care Provider] - 1 Week Discharge Medications: New atorvastatin 40 mg Tablet 40 mg PO BEDTIME Qty: 30 0RF amlodipine 2.5 mg Tablet 2.5 mg PO DAILY Qty: 30 0RF Protocol: Hold for SBP< HOLD for SBP < : 90 clopidogrel 75 mg Tablet 75 mg PO DAILY Qty: 30 0RF aspirin 81 mg Tablet,Chewable 81 mg PO DAILY Qty: 30 0RF heparin (porcine) 5,000 unit/mL Solution 5,800 unit IVPUSH PROTOCOL BOLUS PRN (Reason: 80 Unit/Kg - Heparin Protocol) Qty: 10 0RF heparin (porcine) 5,000 unit/mL Solution 2,900 unit IVPUSH PROTOCOL BOLUS PRN (Reason: 40 Unit/Kg - Heparin Protocol) Qty: 10 0RF metoprolol tartrate 25 mg Tablet 25 mg PO BID Qty: 60 0RF Protocol: Hold for SBP/HR < HOLD for SBP < : 90 HOLD for HR < : 60 heparin(porcine) in 0.45% NaCl 25,000 unit/250 mL Parenteral Solution 25,000 unit continuous IV infusion .Q0M Qty: 10 0RF Discontinued acetaminophen [Tylenol Ex Str Rapid Release] 500 mg Tablet 500 mg PO DAILY PRN (Reason: Pain) phenylephrine HCl [Sudafed PE] 10 mg Tablet 10 mg PO DAILY PRN (Reason: Allergies) Severe Sinus Congest Alrgy-Cgh 6.25-5-10-325 mg Capsule 2 cap PO DAILY PRN (Reason: Allergies) metformin 500 mg tablet 1,000 mg PO BID naproxen sodium [Aleve] 220 mg capsule 220 mg PO DAILY PRN (Reason: Pain) Diet: Advance to usual diet Activity on Discharge: As tolerated Stand Alone Forms: Patient Portal Discharge page Print Language: Setswana Care Plan Goals: Continue meds as outlined on transfer sheet Health Concerns: Further plans as per receiving facility Plan of Treatment: As above Assessment: See discharge summary
[2024-09-11 20:35] LABS: Glucose, Whole Blood 159 mg/dL (60-115)
[2024-09-11 21:07] LABS: PTT Heparin Drip 54.6 SEC (53-77.9)
[2024-09-11] MEDS: levoFLOXacin/D5W 750 MG/150 ML PIGGYBACK 100 MG IV (21:15)
[2024-09-11] MEDS: Atorvastatin Calcium 40 MG TABLET PO (21:16)
[2024-09-11] MEDS: Heparin Sodium,Porcine/1/2NS 25,000 UNIT/250 ML IV.SOLN 10.11 UNIT IVCONT (21:19)
[2024-09-12 04:00] VITALS: BP 158/79; PULSE 82; TEMP 36.7
[2024-09-12 06:33] LABS: PTT Heparin Drip 64.4 SEC (53-77.9)
[2024-09-12 06:41] LABS: Alanine Aminotransferase 51 U/L (0-40); Albumin Level 3.5 g/dL (3.5-5.0); Alkaline Phosphatase 149 U/L (39-117); Anion Gap 13 (12-20); Aspartate Amino Transferase 78 U/L (5-37); Bilirubin Total 0.7 mg/dL (0.0-1.0); Blood Urea Nitrogen 20 mg/dL (9-16); Calcium 8.9 mg/dL (8.4-10.2); Carbon Dioxide 22 mmol/L (22-29); Chloride 112 mmol/L (96-108); Creatinine Clr Calc Pharmacy 36.5; Estimated Glomerular Filt Rate 46; Glucose Fasting 97 mg/dL (60-99); Potassium 3.9 mmol/L (3.3-5.1); Sodium 143 mmol/L (135-145); Total Protein 6.4 g/dL (6.5-8.0)
[2024-09-12 07:09] LABS: Glucose, Whole Blood 106 mg/dL (60-115)
[2024-09-12 07:35] VITALS: BP 164/92; PULSE 70; RESP 17; TEMP 36.4; O2SAT 94
[2024-09-12] MEDS: Aspirin 81 MG TAB.CHEW PO (08:20)
[2024-09-12] MEDS: 0.9 % Sodium Chloride Flush 3 ML SYRINGE IVFLUSH (08:20)
[2024-09-12] MEDS: Clopidogrel Bisulfate 75 MG TABLET PO (08:20)
[2024-09-12] MEDS: Metoprolol Tartrate 25 MG TABLET PO (08:20)
[2024-09-12] MEDS: amLODIPine Besylate 2.5 MG TABLET PO ×2 (08:20→10:12)
[2024-09-12 10:12] VITALS: BP 133/75
[2024-09-12] MEDS: 0.9 % Sodium Chloride 500 ML 100 ML IVCONT (10:50)
[2024-09-12 11:11] LABS: Glucose, Whole Blood 214 mg/dL (60-115)
--- NOTE | 2024-09-12 11:20 | MHC.CM.PN ---
Pt to be transferred to [facility].
[2024-09-12 11:24] VITALS: BP 132/78; PULSE 78; RESP 18; TEMP 36.3; O2SAT 97
--- NOTE | 2024-09-12 12:08 | P.DS_ITS ---
DS: Providers Provider Date of Service: 09/12/24 Date of admission: 09/09/24 20:36 Date of discharge: 09/12/24 Primary care physician: Mode Thompson MD Consults: 09/09/24 20:35 Consult to Cardiology Routine Consulting Provider: [facility] Reason for consultation: Afib with RVR, NSTEMI Has provider been notified: Yes DS: Diagnosis Discharge Diagnosis (1) Sepsis: Status: Acute (2) Atrial fibrillation with RVR: Status: Acute (3) NSTEMI (non-ST elevated myocardial infarction): Status: Acute DS: Summary Hospital Course Hospital Course: 79-year-old male with 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 Patient states he had sudden onset of midsternal chest pain 3 days ago that was worse with ambulation but did not relieve with rest. It was nonradiating and went away on its own. He did not try nitroglycerin for it. Patient states he has been feeling unwell for the past few weeks. Patient saw his outsoles channel opener on 08/29 and was prescribed p.o. prednisone. Patient completed 7 day course of p.o. prednisone without any relief or improvement. Patient states he was been having productive cough with yellowish sputum production that has been ongoing for the last 10-14 days. Also has been having chills with documented temperature around 100 degrees F. Has associated easy fatigability. Admits sore throat. Patient's was admitted 3 days ago in the setting of COVID pneumonia. He denies abdominal discomfort, changes in bowel habits. In the emergency department, white count found to be elevated and imaging concerning for bronchiectasis. Patient was given IV fluids and IV antibiotics. Also found to have elevated troponin and EKG revealed AFib with RVR. Hospital course Admitted to telemetry. Rate control with 1 dose of IV Lopressor. Remains in AFib but with controlled ventricular rate throughout his hospitalization. Troponin peak [id number]. Has a history of pulmonary asbestosis and thought to have some bronchiectasis and treated with Levaquin renally dosed. Initial leukemoid reaction of 33 K... Twenty-five K on discharge. No fever chills. He was maintained on a heparin drip. 2D echo was done and read as LVEF 40-45%. Anterior lateral wall hypokinetic; basilar inferior segment akinetic. Discussed with Cardiology and decision made between Cardiology and family to transfer to [facility] for cardiac catheterization. Time Attestation Discharge Coordination Time (in mins): 38 Quality: Safe Use of Opioids Does Pt have an Active Cancer Diagnosis on the Problem List?: No Quality: Stroke Does the patient have a stroke diagnosis?: No Physical Exam Vital Signs: Vital Signs: Last Vital Signs Temp 97.4 F 09/12/24 11:24 Pulse 78 09/12/24 11:24 Resp 18 09/12/24 11:24 BP 132/78 09/12/24 11:24 Pulse Ox 97 09/12/24 11:24 O2 Del Method Room Air 09/12/24 11:24 O2 Flow Rate 1.5 09/10/24 07:19 BMI result Body Mass Index 24.9 Const: Other: Constitutional : Awake, interactive, not in distress Neck : Normal inspection, Supple Cardiovascular : RRR, no JVP, no lower extremity edema Respiratory : good bilateral air entry, Bilateral end inspiratory crackles inferior sternal border to base of lungs Gastrointestinal: soft, lax, Normal bowel sounds, Non tender Skin : Warm, Dry Neurological : Alert & oriented to self and place , No focal deficit , DS: Data Data Completed and Pending Labs on day of discharge: Laboratory Results - last 24 hr 09/11/24 09/11/24 09/11/24 15:00 15:02 20:31 Hold Purple Top aPTT Heparin Protocol 55.6 Sodium Potassium Chloride Carbon Dioxide Anion Gap BUN Creatinine Estim Creat Clear Calc Estimated GFR POC Glucose 214 H 159 H Fasting Glucose Calcium Total Bilirubin AST ALT Alkaline Phosphatase Total Protein Albumin 09/11/24 09/11/24 09/12/24 20:51 20:54 06:13 Hold Purple Top SEE NOTE SEE NOTE aPTT Heparin Protocol 54.6 64.4 Sodium 143 Potassium 3.9 Chloride 112 H Carbon Dioxide 22 Anion Gap 13 BUN 20 H Creatinine 1.48 H Estim Creat Clear Calc 36.5 Estimated GFR 46 POC Glucose Fasting Glucose 97 Calcium 8.9 Total Bilirubin 0.7 AST 78 H ALT 51 H Alkaline Phosphatase 149 H Total Protein 6.4 L Albumin 3.5 09/12/24 09/12/24 07:06 11:07 Hold Purple Top aPTT Heparin Protocol Sodium Potassium Chloride Carbon Dioxide Anion Gap BUN Creatinine Estim Creat Clear Calc Estimated GFR POC Glucose 106 214 H Fasting Glucose Calcium Total Bilirubin AST ALT Alkaline Phosphatase Total Protein Albumin Preliminary micro results at discharge 09/09/24 17:06 Blood Culture - Preliminary Blood - Venous No growth after 48 hours. 09/09/24 17:02 Blood Culture - Preliminary Blood - Venous No growth after 48 hours. Imaging Chest x-ray: Radiologist's impression: ITS Impressions Chest X-Ray 09/09/24 16:32 IMPRESSION: No acute disease. Electronically signed by: Marleny Reid MD 09/09/2024 06:08 PM EDT RP Chest CT 09/09/24 19:52 IMPRESSION: Calcified pleural plaques, chronic right pleural thickening and small bowel pleural effusions likely sequelae of asbestosis. Groundglass attenuation in both upper lobes right greater than left with honeycombing in the right lower lobe. These composite findings are suspicious for chronic interstitial lung disease. There is mild bilateral lower lobe bronchiectasis. Fleischner guidelines were followed. Electronically signed by: Darrel Rosario MD 09/09/2024 08:34 PM EDT RP Discharge Plan Discharge Anticipated Discharge Date/Time: 09/12/24 12:07 Patient Disposition: Xfer Acute Care Hospital Discharge Diagnosis: NSTEMI Referrals: Mode Thompson MD [Primary Care Provider] - 1 Week Discharge Medications: New atorvastatin 40 mg Tablet 40 mg PO BEDTIME Qty: 30 0RF amlodipine 2.5 mg Tablet 2.5 mg PO DAILY Qty: 30 0RF Protocol: Hold for SBP< HOLD for SBP < : 90 clopidogrel 75 mg Tablet 75 mg PO DAILY Qty: 30 0RF aspirin 81 mg Tablet,Chewable 81 mg PO DAILY Qty: 30 0RF heparin (porcine) 5,000 unit/mL Solution 5,800 unit IVPUSH PROTOCOL BOLUS PRN (Reason: 80 Unit/Kg - Heparin Protocol) Qty: 10 0RF heparin (porcine) 5,000 unit/mL Solution 2,900 unit IVPUSH PROTOCOL BOLUS PRN (Reason: 40 Unit/Kg - Heparin Protocol) Qty: 10 0RF metoprolol tartrate 25 mg Tablet 25 mg PO BID Qty: 60 0RF Protocol: Hold for SBP/HR < HOLD for SBP < : 90 HOLD for HR < : 60 heparin(porcine) in 0.45% NaCl 25,000 unit/250 mL Parenteral Solution 25,000 unit continuous IV infusion .Q0M Qty: 10 0RF Discontinued acetaminophen [Tylenol Ex Str Rapid Release] 500 mg Tablet 500 mg PO DAILY PRN (Reason: Pain) phenylephrine HCl [Sudafed PE] 10 mg Tablet 10 mg PO DAILY PRN (Reason: Allergies) Severe Sinus Congest Alrgy-Cgh 6.25-5-10-325 mg Capsule 2 cap PO DAILY PRN (Reason: Allergies) metformin 500 mg tablet 1,000 mg PO BID naproxen sodium [Aleve] 220 mg capsule 220 mg PO DAILY PRN (Reason: Pain) Discharge Orders: Discharge Order (Routine); Ordered 09/12/24 Ordered By: Sherman Childers Diet: Advance to usual diet Activity on Discharge: As tolerated Stand Alone Forms: Patient Portal Discharge page Print Language: Divehi Care Plan Goals: Continue meds as outlined on transfer sheet Health Concerns: Further plans as per receiving facility Plan of Treatment: As above Assessment: See discharge summary
--- NOTE | 2024-09-12 12:25 | P.PNCA_ITS ---
Subjective Subjective Date of Service: 09/12/24 Interval history: Seen examined at bedside. Waiting to be transferred to [facility]. Kidney function is slightly worsened before. Physical Exam Vital Signs: Last Vital Signs Temp 97.4 F 09/12/24 11:24 Pulse 78 09/12/24 11:24 Resp 18 09/12/24 11:24 BP 132/78 09/12/24 11:24 Pulse Ox 97 09/12/24 11:24 O2 Del Method Room Air 09/12/24 11:24 O2 Flow Rate 1.5 09/10/24 07:19 BMI result Body Mass Index 24.9 GENERAL APPEARANCE: in no acute distress, on supplemental oxygen. NECK: no carotid bruit, no jugular venous distention. SKIN: no suspicious lesions, warm and dry. HEART: no murmurs, regular rate and rhythm. LUNGS: Crackles both lungs. ABDOMEN: soft, nontender. EXTREMITIES: no edema. PERIPHERAL PULSES: equal. NEUROLOGIC: No gross deficits, AAO X 3 Objective Labs and Meds 09/11/24 05:07 09/12/24 06:13 Lab results: Laboratory Results - last 24 hr 09/11/24 09/11/24 09/11/24 15:00 15:02 20:31 Hold Purple Top aPTT Heparin Protocol 55.6 Sodium Potassium Chloride Carbon Dioxide Anion Gap BUN Creatinine Estim Creat Clear Calc Estimated GFR POC Glucose 214 H 159 H Fasting Glucose Calcium Total Bilirubin AST ALT Alkaline Phosphatase Total Protein Albumin 09/11/24 09/11/24 09/12/24 20:51 20:54 06:13 Hold Purple Top SEE NOTE SEE NOTE aPTT Heparin Protocol 54.6 64.4 Sodium 143 Potassium 3.9 Chloride 112 H Carbon Dioxide 22 Anion Gap 13 BUN 20 H Creatinine 1.48 H Estim Creat Clear Calc 36.5 Estimated GFR 46 POC Glucose Fasting Glucose 97 Calcium 8.9 Total Bilirubin 0.7 AST 78 H ALT 51 H Alkaline Phosphatase 149 H Total Protein 6.4 L Albumin 3.5 09/12/24 09/12/24 07:06 11:07 Hold Purple Top aPTT Heparin Protocol Sodium Potassium Chloride Carbon Dioxide Anion Gap BUN Creatinine Estim Creat Clear Calc Estimated GFR POC Glucose 106 214 H Fasting Glucose Calcium Total Bilirubin AST ALT Alkaline Phosphatase Total Protein Albumin Progress Note: A&P Assessment and plan (1) Sepsis: Status: Acute (2) Atrial fibrillation with RVR: Status: Acute (3) NSTEMI (non-ST elevated myocardial infarction): Status: Acute Plan 79-year-old gentleman who has presented with pneumonia, AFib with RVR and NSTEMI. He was getting chest discomfort at home over the last month. ECHO has shown lateral and inferior wall motion abnormalities. He has been on aspirin, Plavix and heparin drip. Blood pressure is well controlled. Gentle hydration for mild kidney dysfunction. He has been accepted by Hospital Medicine at [facility]. We will likely be transferred by end of today. Potential cardiac catheterization tomorrow morning. He is back in sinus rhythm at this stage. Given atrial fibrillation he will need anticoagulation given high-risk for stroke. We will decided after cardiac catheterization. Thank you for allowing me to participate in the care of your patient. Please feel free to contact me if you have any questions. Time Spent With Patient Time: Total time managing care of this patient today ____ minutes. Progress Note: Quality Stroke Does the patient have a stroke diagnosis?: No Procedures Date of Service Date of Service: 09/12/24
== END 2024-09-12 12:51 | disposition short-term general hospital (02) | DRG 871 ==
LOC: HO.ED 18:57 → HO.EDOVER 20:50 → HO.IMC 09-10 00:03
PROVIDERS: Hospitalist; Nurse Practitioner Family; Physician Assistant Medical; Admitting Provider Student in an Organized Health Care Education/Training Program; Emergency Provider Emergency Medicine Emergency Medical Services; PCP Internal Medicine; Visit Provider Student in an Organized Health Care Education/Training Program
DX: A41.9 Sepsis, unspecified organism (principal); I21.4 Non-ST elevation (NSTEMI) myocardial infarction; E87.21 Acute metabolic acidosis; J47.1 Bronchiectasis with (acute) exacerbation; I48.19 Other persistent atrial fibrillation; Z66 Do not resuscitate; J92.0 Pleural plaque with presence of asbestos; N18.31 Chronic kidney disease, stage 3a; Z20.822 Contact with and (suspected) exposure to COVID-19; E11.22 Type 2 diabetes mellitus with diabetic chronic kidney disease
CPT/HCPCS: 0241U; 36415; 71046; 71260; 80048; 80053; 81001; 82947; 83605; 83735; 84484; 85007; 85027; 85610; 85730; 87040; 87651; 93005; 93306; 99285; J0696; J1644; J1956; J2543; Q9957; Q9967

== ENCOUNTER 2024-09-09 20:36 | Outpatient (BNV) | payer MEDICARE, BC, SELFPAY | END 2024-09-10 07:00 | PROVIDERS: Admitting Provider Student in an Organized Health Care Education/Training Program; Emergency Provider Emergency Medicine Emergency Medical Services; PCP Internal Medicine; Visit Provider Internal Medicine Cardiovascular Disease | DX: I21.4 Non-ST elevation (NSTEMI) myocardial infarction (principal) | CPT/HCPCS: 93306 ==

== ENCOUNTER → 2024-09-09 20:36 | Outpatient (BNV) | payer MEDICARE, BC, SELFPAY | PROVIDERS: Admitting Provider Student in an Organized Health Care Education/Training Program; Emergency Provider Emergency Medicine Emergency Medical Services; PCP Internal Medicine; Visit Provider Internal Medicine Cardiovascular Disease | DX: A41.9 Sepsis, unspecified organism (principal); I48.91 Unspecified atrial fibrillation; I21.4 Non-ST elevation (NSTEMI) myocardial infarction | CPT/HCPCS: 93010; 99223; 99233 ==

== ENCOUNTER → 2024-09-09 20:36 | Outpatient (BNV) | payer MEDICARE, BC, SELFPAY | PROVIDERS: Admitting Provider Student in an Organized Health Care Education/Training Program; Emergency Provider Emergency Medicine Emergency Medical Services; PCP Internal Medicine; Visit Provider Student in an Organized Health Care Education/Training Program | DX: I21.4 Non-ST elevation (NSTEMI) myocardial infarction (principal); I48.91 Unspecified atrial fibrillation; J47.9 Bronchiectasis, uncomplicated | CPT/HCPCS: 99223; 99232; 99233; 99239 ==

== ENCOUNTER → 2024-09-13 23:59 | Outpatient (BNV) | payer MEDICARE, BC, SELFPAY | PROVIDERS: PCP Internal Medicine; Visit Provider Internal Medicine Cardiovascular Disease | DX: I21.4 Non-ST elevation (NSTEMI) myocardial infarction (principal) | CPT/HCPCS: 92928; 92978; 92979; 93458; 99152 ==

== ENCOUNTER 2024-10-03 14:09 | Outpatient (AMB) | payer MEDICARE, BC, SELFPAY ==
[2024-10-03 14:21] VITALS: BP 132/60; PULSE 68; BMI 24.2
--- NOTE | 2024-10-03 14:21 | MHC.OFFVIS ---
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 On EKG he was found to have AFib RVR and was treated with IV metoprolol and put on p.o. metoprolol. His troponin levels were elevated and he was treated for NSTEMI with heparin drip. When his viral illness improved he was transferred to [facility] for cardiac catheter patient and received 2 coronary stents. He now presents for follow-up. Today he reports that he has been doing well since his hospital discharge. He has not had any recurrent chest discomfort at rest or with activity. He does have some chronic shortness of breath related to his interstitial lung disease. He has no PND, orthopnea or edema. No heart palpitations, lightheadedness, presyncope, syncope, falls. He has been doing only light activity. He is interested in cardiac rehab. He is taking all meds as directed. No bleeding issues reported. Son is present. [facility] Medical History (Updated 10/03/24 @ 17:43 by Merry Elena, RAMYA-C) Atrial fibrillation with RVR Sciatica Prediabetes Asbestosis Chronic cough Surgical History (Updated 10/04/24 @ 10:40 by Merry Elena NP-C) Hx of cardiac cath Social History Household Members: Spouse and Family Housing: House Do you presently have visiting nurse or other home services: No Alcohol intake: never Patient Tobacco Use Status: Never used Tobacco service: No Current occupational status: retired Review of Systems Const All systems reviewed & are unremarkable except as noted in HPI and below ENT Denies dizziness Card Denies chest pain, Denies chest pain at rest, Denies chest pain with activity, Denies rapid heart rate, Denies pedal edema, Denies edema, Denies leg edema, Denies lightheadedness, Denies palpitations, Denies dyspnea, Denies dyspnea on exertion and Denies orthopnea Resp Denies cough, Denies dyspnea and Denies dyspnea on exertion GI Denies hematochezia and Denies change in stool character Musc Denies abnormal gait, Denies limited range of motion, Denies muscle cramps, Denies muscle weakness, Denies numbness, Denies radiating pain into limb, Denies stiffness and Denies tingling Neuro Denies abnormal gait, Denies dizziness, Denies numbness and Denies tingling Endo Denies palpitations Physical Exam Vital Signs: Last Vital Signs Pulse 68 10/03/24 14:21 BP 132/60 10/03/24 14:21 BMI result Body Mass Index 24.2 Const General: cooperative, healthy appearing, comfortable and no acute distress Orientation/consciousness: patient oriented x3 Neck Neck: Yes normal visual inspection and Yes no JVD Resp Effort & Inspection: normal respiratory effort Auscultation: clear to auscultation bilaterally, no crackles, no rales, no rhonchi and no wheezes Cardio Jugular venous distension: no JVD Rate: regular rate Rhythm: regular rhythm Heart sounds: S1 normal heart sound present, S2 normal heart sound present, no murmurs and no rubs Neuro General: patient oriented x3 Extrem Other: Right radial catheterization site well healed, easily palpable radial pulse and right hand assessment normal General: Yes normal to inspection and No no pedal edema Psych Appearance: grossly normal Mental Status: mental status grossly normal Speech and movement: Normal speech and movement present Office Procedures EKG Details: Today, read by me, normal sinus rhythm, QTC 433 milliseconds, rate 63 [id number], Complete Assessment & Plan Assessment & Plan (1) NSTEMI (non-ST elevated myocardial infarction): Code(s): I21.4 - Non-ST elevation (NSTEMI) myocardial infarction Category: Medical Plan: Recent [facility] admission for viral illness. He is found to have AFib RVR. [place] [address]. Echocardiogram showed EF 40-45%, anterior lateral hypokinetic, basal inferior akinetic. He was initially managed medically and once clinically improved he was transferred to [facility] where he underwent cardiac catheterization which showed significant proximal left circumflex and proximal RCA stenosis. A REEN was placed in each vessel. Today he reports he has been feeling well since his hospital discharge. He has no concerning symptoms. Will order cardiac rehab. He is not on aspirin as he is on Eliquis. Continue Plavix uninterrupted for for 1 year. Continue atorvastatin with ideal LDL goal less than 70. Will order updated lipid profile. Continue metoprolol. Will check a limited echo prior to his next visit to reassess EF and wall motion. Signs and symptoms of angina reviewed with him. Diagnosis of coronary artery disease with stents discussed. Cardiology follow-up 3-4 months, sooner if needed. (2) S/P cardiac cath: Comment: 09/13/2024, left main 30% stenosis, mid LAD 50% stenosis, left circumflex proximal 80% stenosis OM1 95% stenosis, RENE left circumflex into OM1, with abrupt vessel closure while wiring and had angioplasty of OM1, RCA proximal 90% stenosis, RENE placed Code(s): Z98.890 - Other specified postprocedural states Category: Surgical Plan: Right radial catheterization site well healed (3) Atrial fibrillation with RVR: Code(s): I48.91 - Unspecified atrial fibrillation Category: Medical Plan: New finding of atrial fibrillation at time of [facility] admission 09/10/2024. He was initially treated with heart rate control. It looks like he was discharged from [facility] still in atrial fibrillation. He was on heparin drip due to NSTEMI. Upon [facility] discharge he was started on Eliquis for anticoagulation. His pulse is regular today. EKG confirms sinus rhythm with first-degree AV block, rate 66. Diagnosis of paroxysmal atrial fibrillation discussed with him. He does not recall having symptoms of palpitations when he was in AFib. Will continue on metoprolol for heart rate control and Eliquis for anticoagulation. (4) Stented coronary artery: Comment: RENE to the proximal left circumflex and proximal RCA 09/13/2024 Code(s): Z95.5 - Presence of coronary angioplasty implant and graft Category: Surgical Plan: As above (5) Hospital discharge follow-up: Code(s): Z09 - Encounter for follow-up examination after completed treatment for conditions other than malignant neoplasm Category: Medical Plan: As above Plan Time spent on chart review, documentation, interview and assessment Orders: Orders Cardiac Rehab 10/03/24 I21.4 - Non-ST elevation (NSTEMI) myocardial infarction, Z95.5 - Presence of coronary angioplasty implant and graft, Z98.890 - Other specified postprocedural states CA Echo Limited 3 Months I21.4 - Non-ST elevation (NSTEMI) myocardial infarction Lipid Panel Today Z95.5 - Presence of coronary angioplasty implant and graft Coding Level of Care Code Est Pt Level 4 (05041) Complex EM visit Add On G2211 Diagnoses NSTEMI (non-ST elevated myocardial infarction) I21.4 S/P cardiac cath Z98.890 Atrial fibrillation with RVR I48.91 Stented coronary artery Z95.5 Hospital discharge follow-up Z09 CPT Codes EKG - CPT: [id number], Complete ([id number]) Time Spent (min) 40
== END 2024-10-03 15:07 | disposition home or self-care (01) ==
PROVIDERS: PCP Internal Medicine; Visit Provider Nurse Practitioner Family
DX: I48.91 Unspecified atrial fibrillation (principal)
CPT/HCPCS: 93010; 99214; G2211

== ENCOUNTER → 2024-10-03 14:09 | Outpatient (BNVA) | payer MEDICARE, BC, SELFPAY | PROVIDERS: PCP Internal Medicine; Visit Provider Nurse Practitioner Family | DX: Z09 Encounter for follow-up examination after completed treatment for conditions other than malignant neoplasm (principal); I48.91 Unspecified atrial fibrillation; I21.4 Non-ST elevation (NSTEMI) myocardial infarction; Z98.890 Other specified postprocedural states; Z95.5 Presence of coronary angioplasty implant and graft | CPT/HCPCS: 93005; 99212 ==

== ENCOUNTER 2024-10-25 10:37 | Outpatient (REF) | payer MEDICARE, BC, SELFPAY ==
[2024-10-25 11:28] LABS: Hematocrit 36.2 % (42.0-52.0); Hemoglobin 11.4 g/dl (14.0-18.0); Mean Corpuscular HGB Conc 31.5 g/dl (31.0-36.0); Mean Corpuscular Hemoglobin 29.5 pg (27.0-33.0); Mean Corpuscular Volume 93.5 fL (80.0-98.0); Mean Platelet Volume 12.8 fL (9.4-12.4); Red Blood Count 3.87 X10*6/uL (4.60-5.80); Red Cell Distribution Width 16.9 % (11.0-16.0); White Blood Count 20.9 X10*3/uL (4.8-10.8)
[2024-10-25 11:32] LABS: Platelet Count 96 X10*3/uL (160-400)
[2024-10-25 11:39] LABS: Estimated Average Glucose 105 mg/dL; Hemoglobin A1C 100.1227 umol/L; Hemoglobin A1c % 5.3 % (<6.0)
[2024-10-25 11:53] LABS: Band Neutrophils Percent 1 % (3-5); Eosinophils Absolute Manual 0.4 X10*3/uL (0.0-0.4); Eosinophils Percent Manual 2 % (0-4); Lymphocytes Absolute Manual 2.1 X10*3/uL (1.2-4.9); Lymphocytes Percent Manual 10 % (20-40); Metamyelocytes Absolute 0.8 X10*3/uL; Metamyelocytes Percent 4 %; Monocytes Absolute Manual 2.9 X10*3/uL (0.1-1.2); Monocytes Percent Manual 14 % (2-11); Neutrophils Absolute Manual 14.6 X10*3/uL (2.0-8.3); Nucleated Red Blood Cells 1 /100WBC (0-0)
[2024-10-25 11:57] LABS: Microcytosis 1+ (5-14) /OIF; RBC Morphology NOTED
[2024-10-25 11:58] LABS: Alanine Aminotransferase 31 U/L (0-40); Albumin Level 4.1 g/dL (3.5-5.0); Alkaline Phosphatase 122 U/L (39-117); Anion Gap 13 (12-20); Aspartate Amino Transferase 47 U/L (5-37); Bilirubin Total 0.9 mg/dL (0.0-1.0); Blood Urea Nitrogen 18 mg/dL (9-16); Calcium 9.3 mg/dL (8.4-10.2); Carbon Dioxide 26 mmol/L (22-29); Chloride 107 mmol/L (96-108); Cholesterol 63 mg/dL (<200); Estimated Glomerular Filt Rate 49; Glucose Fasting 112 mg/dL (60-99); HDL Cholesterol 17 mg/dL (>40); Hypochromasia 1+ (5-14) /OIF; LDL Cholesterol Calculated 30 mg/dL (<100); Platelet Estimate DECREASED (NORMAL); Platelet Morphology Comment NORMAL; Polychromasia 1+ (0-2) /OIF; Sodium 142 mmol/L (135-145); Total Protein 7.6 g/dL (6.5-8.0); Triglycerides 84 mg/dL (<150)
[2024-10-25 12:02] LABS: Neutrophils Percent Manual 69 % (45-73)
[2024-10-25 12:35] LABS: Creatinine Urine 107.97 mg/dL; Microalbum/Creatinine Ratio Ur 125.9 ug/mg cr (<30)
== END 2024-10-25 10:38 | disposition home or self-care (01) ==
LOC: HO.LAB 10:37
PROVIDERS: PCP Internal Medicine; Visit Provider Internal Medicine
DX: N18.9 Chronic kidney disease, unspecified (principal); E78.00 Pure hypercholesterolemia, unspecified; E11.9 Type 2 diabetes mellitus without complications
CPT/HCPCS: 36415; 80053; 80061; 82043; 82570; 83036; 85007; 85027

== ENCOUNTER 2024-11-20 18:39 | Inpatient (IN) | payer MEDICARE, BC, SELFPAY ==
--- NOTE | ~2024-11-20 | XR_ITS ---
CLINICAL HISTORY: bradycardia 1 view chest x-ray Comparison: CT - CT CHEST W IV CON - 09/09/24 20:[address]/SR - CT CHEST W IV CON - 09/09/24 20:02 EDT Findings: Chronic pleural thickening of the right hemithorax. There are patchy areas of opacity in the central right lung, which appears similar to prior. Left lung is clear. Mild cardiomegaly. No acute fracture. IMPRESSION: 1. No new lung opacities. Chronic pleural thickening of the right lung. This document has been electronically signed by: Tonio Espinoza MD on 11/20/2024 19:42:15
--- NOTE | ~2024-11-20 | CT_ITS ---
CLINICAL HISTORY: neck pain, L anterior redness CT soft tissue neck with contrast Comparison: None Findings: The visualized intracranial contents are unremarkable. No prevertebral fluid. Epiglottis is within normal limits. Pharyngeal mucosal space and parapharyngeal fat are normal. Salivary glands are within normal limits. No sialoliths. No suspicious thyroid nodules. No abnormalities in the area of concern in the left anterior neck. Visualized lung apices are clear. No acute fractures. Degenerative changes of the cervical spine. IMPRESSION: No acute findings. This document has been electronically signed by: Tonio Espinoza MD on 11/20/2024 19:51:48
--- NOTE | ~2024-11-20 | CT_ITS ---
CLINICAL HISTORY: sepsis WBC count 33k no source CT chest without contrast Comparison: CR - XR CHEST 1V - 11/20/24 18:[address] - CT CHEST W IV CON - 09/09/24 20:06 EDT Findings: [id number] cardiomegaly. Coronary artery calcifications are present. The visualized thyroid and mediastinum are unremarkable. Extensive noncalcified plaquing of the right pleural cavity. Minimal calcified plaquing of the superior aspect. No significant left pleural cavity plaquing. Mild bibasilar atelectasis. No focal consolidation. No effusion or pneumothorax. Subpleural fibrotic interstitial lung changes in the right lung at the lung base. Minimal ground-glass opacity diffusely throughout both lungs. Please see same-day CT abdomen and pelvis report for discussion of upper abdomen findings. Chronic appearing T11 compression deformity, unchanged from prior. IMPRESSION: 1. Minimal bilateral ground-glass opacities which could represent expiratory lung parenchyma versus mild pulmonary edema. 2. Extensive plaquing of the right pleural cavity with basilar subpleural fibrotic change, similar to prior. This document has been electronically signed by: Tonio Espinoza MD on 11/20/2024 21:06:57
--- NOTE | ~2024-11-20 | CT_ITS ---
CLINICAL HISTORY: sepsis WBC count 33K CT abdomen and pelvis without contrast Comparison: CT - CT ABDOMEN PELVIS WO CON - 03/15/21 14:53 EDT Findings: Please see same-day chest CT report for discussion of chest findings. Liver has a lobulated contour suggestive of cirrhosis. Spleen is borderline enlarged. Gallbladder, adrenal glands and pancreas are unremarkable. There is contrast within both renal collecting systems. No hydronephrosis. No bowel obstruction, pneumoperitoneum, or pneumatosis. Moderate fecal loading in the colon. Pelvic contents unremarkable. Normal appendix. Degenerative changes of the lumbar spine. Compression deformity of T11, which appears chronic. IMPRESSION: No acute findings. Lobulated appearance of the liver suggesting cirrhosis. Borderline splenomegaly. This document has been electronically signed by: Tonio Espinoza MD on 11/20/2024 20:58:49
[2024-11-20 18:45] VITALS: BP 170/96; PULSE 93; O2SAT 84
[2024-11-20 18:46] VITALS: BP 152/74; PULSE 89; RESP 19; TEMP 36.9; O2SAT 87; BMI 24.5
--- NOTE | 2024-11-20 18:50 | ECG_ITS ---
Test Reason : SOB Blood Pressure : / mmHG Vent. Rate : 085 BPM Atrial Rate : 085 BPM P-R Int : 110 ms QRS Dur : 074 ms QT Int : 368 ms P-R-T Axes : 043 034 069 degrees QTc Int : 437 ms Sinus rhythm with Premature atrial complexes with short IN Nonspecific ST abnormality Abnormal ECG When compared with ECG of 09-SEP-2024 17:04, Sinus rhythm has replaced Atrial fibrillation Vent. rate has decreased BY [address] no longer depressed in Anterolateral leads T wave inversion no longer evident in Inferior leads Referred By: Lara Ruiz Electronically Signed By:RC HICKS MD
--- NOTE | 2024-11-20 18:59 | ED.GENADULT ---
HPI - General Adult General Chief complaint: General Medical Stated complaint: WEAKNESS,STIFF NECK Time Seen by Provider: 11/20/24 18:41 Source: patient and old records reviewed Mode of arrival: ambulatory Limitations: no limitations History of Present Illness ED Provider: UBALDO PRATHER narrative: 79 yo male with PMH of afib with RVR on eliquis, CAD with NSTEMI in August has been on plavix since RENE to mid RCA, OM1 had pneumonia as well in August here with c/o being around sick family who had a cold now today he c/o feeling weak all over and feels winded. No CP, no production of sputum, his neck is sore, no sore throat, he didn't take any tylenol. No recent travel. He is staking his plavix and eliquis though he admits his son knows more about his medications. No n/v/d, no bloody stools. States he just doesn't feel well. No falls no syncope. Not on home O2 came in at 88% RA responded well to 2L NC complaint: weakness, dyspnea Onset (ago): day(s) (1) Radiation: non-radiation Severity: moderate Quality: dull Pain Consistency: intermittent Relieving factors: none Exacerbating factors: movement (of neck ) Associated symptoms: loss of appetite, malaise, shortness of breath and weakness Treatments prior to arrival: none Related Data Home Medications ?Medication ?Instructions ?Recorded ?Confirmed apixaban 2.5 mg tablet (Eliquis) 2.5 mg PO BID 10/03/24 10/03/24 metformin 1,000 mg tablet 1,000 mg PO BID 10/03/24 10/03/24 Previous Rx's ?Medication ?Instructions ?Recorded atorvastatin 40 mg tablet 40 mg PO BEDTIME #30 tabs 09/11/24 clopidogrel 75 mg tablet 75 mg PO DAILY #30 tabs 09/11/24 metoprolol tartrate 25 mg tablet 25 mg PO BID #60 tabs 09/11/24 prednisone 20 mg tablet 40 mg (2 x 20 mg) PO DAILY #10 tabs 11/14/24 Allergies Allergy/AdvReac Type Severity Reaction Status Date / Time No Known Allergies Allergy Verified 11/20/24 18:48 Review of Systems Review of Systems: Constitutional : No Fever, No Chills ENT/Mouth : No sore throat, No Rhinorrhea, No Swallowing Difficulty Eyes: No Eye Pain, No Swelling, No Redness Cardiovascular : No Chest Pain, positive SOB, No Orthopnea, no Edema Respiratory : No Cough, No Sputum, No Wheezing, positive dyspnea Gastrointestinal : No Nausea, No Vomiting, No Diarrhea, No abdominal Pain, No Hematochezia, No Melena Genitourinary : No Dysuria, No Urinary Frequency, No Hematuria Musculoskeletal : No joint pain, No Myalgias Skin : No Skin Lesions, No rash Neuro : pos Weakness, No Numbness, No Dizziness, No Headache All other systems reviewed and are negative [facility] Past Medical History Attestation statement: The following information was validated with the patient. Source: old records reviewed Medical History Atrial fibrillation with RVR Sciatica Prediabetes Asbestosis Chronic cough Surgical History Hx of cardiac cath Social History Social History Household Members: Spouse and Family Housing: House Do you presently have visiting nurse or other home services: No Alcohol intake: never Patient Tobacco Use Status: Never used Tobacco Advance Directives: Yes Advance Directives on File: Yes Advance Directives Date on File: 09/13/24 service: No Current occupational status: retired Physical Exam ED Vital Signs: Vital Signs - 24 hr 11/20/24 18:46 11/20/24 19:50 Temperature 98.5 F 98.1 F Pulse Rate 89 80 Respiratory Rate 19 16 Blood Pressure 152/74 H 147/79 H Pulse Oximetry 87 L 96 Oxygen Delivery Method Room Air Nasal Cannula Oxygen Flow Rate 2 BMI result Body Mass Index 24.5 Appearance: Alert. Oriented X3. No acute distress. Eyes: Pupils equal, round and reactive to light. ENT: Pharynx normal. Neck: anterior neck no ropy cord, mild erythema, L anterior neck but no meningeal signs has pain in both trapezius CVS: Normal heart rate and rhythm. Pulses normal. Respiratory: No respiratory distress. Breath sounds diminished Abdomen: Soft and nontender. Skin: Skin warm and dry. Normal skin color. Normal skin turgor. Extremities: No lower extremity edema. No calf ttp Neuro: Oriented X 3. No motor deficit. No sensory deficit. Course Course Course Narrative: infection suspected IV abx ordered 733pm Medications Administered Generic Name Dose Route Start Last Admin Trade Name Freq PRN Reason Stop Dose Admin Vancomycin HCl 1,000 mg/ 535 mls @ 267.5 mls/hr 11/20/24 21:00 11/20/24 21:11 Vancomycin HCl 750 mg/ Sodium IV 11/20/24 22:59 267.5 mls/hr Chloride ONCE ONE Administration Discontinued Medications Generic Name Dose Route Start Last Admin Trade Name Freq PRN Reason Stop Dose Admin Ceftriaxone Sodium 2 gm 11/20/24 19:32 11/20/24 19:39 Ceftriaxone Sodium 2 Gm Vial IVPUSH 11/20/24 19:33 2 gm ONCE ONE Administration Sodium Chloride 500 mls @ 500 mls/hr 11/20/24 19:35 11/20/24 20:41 Ns IV 11/20/24 20:34 Infused .Q1H ONE Infusion Iohexol 60 ml 11/20/24 19:22 11/20/24 19:23 Iohexol 350 Mg/Ml 100 Ml Infus..Btl IV 11/20/24 19:23 60 ml ONCE ONE Administration Medical Decision Making Medical Decision Making [facility] Narrative: 79 yo male with PMH of afib with RVR on eliquis, CAD with NSTEMI in August has been on plavix since RENE to mid RCA, OM1 had pneumonia as well in August here with c/o vague dyspnea, hypoxia and weakness - recent sick contact, no chest pain to suggest VTE and he has no tachycardia - also has hx of same in past with pneumonia. Doubt VTE uses eliquis - he has no abdominal pain n/v/d. At this time basic labs, cultures, empiric abx, IVF gently, CT scan of neck to rule out internal infection, CT chest and abdomen. Unclear source. Planned admit Differential Diagnosis Differential Diagnoses: The differential diagnosis associated with the presentation includes pneumonia, abd infection, UTI, he has no meningeal signs though I would not obtain CSF tap in light of eliquis use viral syndrome Admission/Observation Consideration of admission/observation: Escalation of care including admission/observation considered given hypoxia and WBC count will admit no obvious source Consult Healthcare Provider Management of the patient was discussed with: Hospitalist Lab Data [facility] Lab Attestation statement: I reviewed the patient's lab results. 11/20/24 19:01 11/20/24 19:01 Labs: Lab Results 11/20/24 11/20/24 Range/Units 19: 19:10 WBC 33.8 H* (4.8-10.8) X10*3/uL RBC 3.97 L (4.60-5.80) X10*6/uL Hgb 11.6 L (14.0-18.0) g/dl Hct 36.1 L (42.0-52.0) % MCV 90.9 (80.0-98.0) fL MCH 29.2 (27.0-33.0) pg MCHC 32.1 (31.0-36.0) g/dl RDW 16.9 H (11.0-16.0) % Plt Count 97 L (160-400) X10*3/uL MPV TNP Immature Gran % (Auto) Cancelled Neut % (Auto) Cancelled Lymph % (Auto) Cancelled Walker % (Auto) Cancelled Eos % (Auto) Cancelled Baso % (Auto) Cancelled Lymph # (Auto) Cancelled Walker # (Auto) Cancelled Eos # (Auto) Cancelled Baso # (Auto) Cancelled Abs Immat Gran (auto) Cancelled Absolute Neuts (auto) Cancelled Absolute Nucleated RBC 0.050 H (0.0-0.012) X10*3/uL Nucleated RBC % (auto) 0.1 (0.0-0.2) /100WBC Neutrophils % (Manual) 74 H (45-73) % Band Neutrophils % 7 H (3-5) % Lymphocytes % (Manual) 3 L (20-40) % Monocytes % (Manual) 14 H (2-11) % Metamyelocytes % 2 % Abs Neuts (Manual) 27.4 H (2.0-8.3) X10*3/uL Lymphocytes # (Manual) 1.0 L (1.2-4.9) X10*3/uL Monocytes # (Manual) 4.7 H (0.1-1.2) X10*3/uL Metamyelocytes # 0.7 X10*3/uL Platelet Estimate DECREASED (NORMAL) Large Platelets PRESENT Plt Morphology Comment NOTED RBC Morphology NOTED Ludwig Cells 1+ (0-2) /OIF Sodium 138 (135-145) mmol/L Potassium 4.5 (3.3-5.1) mmol/L Chloride 106 (96-108) mmol/L Carbon Dioxide 21 L (22-29) mmol/L Anion Gap 16 (12-20) BUN 29 H (9-16) mg/dL Creatinine 1.12 (0.5-1.4) mg/dL Estim Creat Clear Calc 48.3 Estimated GFR > 60 Random Glucose 121 H (60-115) mg/dL Lactic Acid 2.1 H* (0.5-2.0) mmol/L Calcium 8.2 L D (8.4-10.2) mg/dL Magnesium 1.7 (1.6-2.6) mg/dL Total Bilirubin 1.1 H (0.0-1.0) mg/dL Direct Bilirubin 0.3 (0.0-0.5) mg/dL AST 59 H (5-37) U/L ALT 32 (0-40) U/L Alkaline Phosphatase 107 (39-117) U/L Troponin I High Sens 23.6 D (<3.5-35.0) ng/L B-Natriuretic Peptide 1067 H (<100) pg/mL Total Protein 6.6 (6.5-8.0) g/dL Albumin 3.5 (3.5-5.0) g/dL Influenza Type A (PCR) NEGATIVE (Negative) Influenza Type B (PCR) NEGATIVE (Negative) RSV RNA Qual (PCR) NEGATIVE (Negative) SARS-CoV-2 RNA (RT-PCR) NEGATIVE (Negative) Independent Interpretation I performed an independent interpretation of an: EKG, Plain X-Ray (no pneumonia) and CT Scan (no sig source of fever) Interpretation: Rate: 85 Rhythm: NSR [place]: normal Normal P waves. Normal YELITZA. Normal QRS complex. ST T wave : no MARAL, flat t waves III qTC: 437 prior studies: no acute ischemia The study has been interpreted contemporaneously by me. . Radiology Impression Discussion of test interpretation with radiology: I have reviewed the radiologist's reading. External Record Review External record reviewed: Inpatient record and Outpatient record Discharge Plan Discharge Clinical Impression: Elevated WBC count, Acidosis, lactic, Weakness, Hypoxia Patient Disposition: Admitted As Inpatient Print Language: Kinyarwanda
[2024-11-20 19:16] LABS: Hemoglobin 11.6 g/dl (14.0-18.0)
[2024-11-20 19:18] LABS: Hematocrit 36.1 % (42.0-52.0); Mean Corpuscular HGB Conc 32.1 g/dl (31.0-36.0); Mean Corpuscular Hemoglobin 29.2 pg (27.0-33.0); Mean Corpuscular Volume 90.9 fL (80.0-98.0); NRBC Pct Auto 0.1 /100WBC (0.0-0.2); Red Blood Count 3.97 X10*6/uL (4.60-5.80); Red Cell Distribution Width 16.9 % (11.0-16.0)
[2024-11-20 19:19] LABS: White Blood Count 33.8 X10*3/uL (4.8-10.8)
[2024-11-20 19:20] LABS: PLT ABN DIST 1
[2024-11-20] MEDS: iohexoL 350 MG/ML 100 ML INFUS..BTL 60 ML IV (19:23)
[2024-11-20 19:27] LABS: Alanine Aminotransferase 32 U/L (0-40); Albumin Level 3.5 g/dL (3.5-5.0); Alkaline Phosphatase 107 U/L (39-117); Anion Gap 16 (12-20); Aspartate Amino Transferase 59 U/L (5-37); Bilirubin Direct 0.3 mg/dL (0.0-0.5); Bilirubin Total 1.1 mg/dL (0.0-1.0); Blood Urea Nitrogen 29 mg/dL (9-16); Calcium 8.2 mg/dL (8.4-10.2); Carbon Dioxide 21 mmol/L (22-29); Chloride 106 mmol/L (96-108); Creatinine Clr Calc Pharmacy 48.3; Estimated Glomerular Filt Rate > 60; Glucose Random 121 mg/dL (60-115); Magnesium 1.7 mg/dL (1.6-2.6); Potassium 4.5 mmol/L (3.3-5.1); Sodium 138 mmol/L (135-145); Total Protein 6.6 g/dL (6.5-8.0)
[2024-11-20 19:31] LABS: B Type Natriuretic Peptide 1067 pg/mL (<100)
[2024-11-20 19:34] LABS: Troponin-I High Sensitivity 23.6 ng/L (<3.5-35.0)
[2024-11-20 19:35] LABS: Lactic Acid 2.1 mmol/L (0.5-2.0)
[2024-11-20] MEDS: cefTRIAXone sodium 2 GM VIAL IVPUSH (19:39)
[2024-11-20] MEDS: 0.9 % Sodium Chloride 500 ML IV (19:41)
[2024-11-20 19:44] LABS: Platelet Count 97 X10*3/uL (160-400)
[2024-11-20 19:45] LABS: Band Neutrophils Percent 7 % (3-5); Lymphocytes Percent Manual 3 % (20-40); Metamyelocytes Absolute 0.7 X10*3/uL; Metamyelocytes Percent 2 %; Monocytes Absolute Manual 4.7 X10*3/uL (0.1-1.2); Monocytes Percent Manual 14 % (2-11); Neutrophils Absolute Manual 27.4 X10*3/uL (2.0-8.3); Neutrophils Percent Manual 74 % (45-73)
[2024-11-20 19:46] LABS: Burr Cells 1+ (0-2) /OIF; Large Platelet PRESENT; Platelet Estimate DECREASED (NORMAL); Platelet Morphology Comment NOTED; RBC Morphology NOTED
[2024-11-20 19:50] VITALS: BP 147/79; PULSE 80; RESP 16; TEMP 36.7; O2SAT 96
[2024-11-20 19:53] LABS: Influenza A PCR NEGATIVE (Negative); Influenza B PCR NEGATIVE (Negative); Resp Syncy Virus RNA Qual PCR NEGATIVE (Negative); SARS COV2 PCR INHOUSE NEGATIVE (Negative)
[2024-11-20] MEDS: vancomycin HCL 1,000 MG, vancomycin HCL 750 MG in 0.9 % Sodium Chloride 500 ML 267.5 MG IV (21:11)
[2024-11-20 21:14] LABS: Reflex Lactate? Lactic Acid Added
[2024-11-20 22:02] VITALS: BP 130/57; PULSE 65; RESP 16; TEMP 36.9; O2SAT 97
[2024-11-20 22:10] LABS: ~Lactic Acid-LAB USE ONLY 1.4 mmol/L (0.5-2.0)
--- NOTE | 2024-11-20 22:21 | P.HPHOSP_ITS ---
History of Present Illness Date of Service: 11/20/24 Attending physician on admission: Nia Kuo Chief Complaint: SOB, weakness Patient is an 79-year-old male with a past medical history significant for AFib on Eliquis, CAD, NSTEMI 09/12 s/p RENE mid RCA on Plavix, and bronchiectasis secondary to asbestosis, who presented to the ED today due to shortness of breath and weakness for the past few days. He reports just over a week ago he was having severe coughing fits and called his PCP for a prescription for prednisone 20 mg x 5 days. He reports at that time he had a mildly productive cough without any color. He reports that his son was recently sick and he helps care for him and his . He denies any nausea, vomiting, sore throat, congestion, runny nose, sensitivity to light, abdominal pain, diarrhea, numbness or tingling. He did report a mild headache and neck pain beginning today which has improved since arriving here. Neck pain is located to the left side. He denies any measured fevers at home. He also denies any urinary symptoms including frequency, urgency or dysuria. Review of Systems 2 Constitutional: Constitutional: Denies body ache(s), Denies chills, Reports fatigue, Denies fever(s) and Reports headache(s) Eyes: Eyes: Denies change in vision and Denies photophobia ENT: Reports headache(s), Denies nasal congestion, Denies nasal discharge, Reports neck pain (?chronic) and Denies sore throat Cardiovascular: Cardiovascular: Denies chest pain, Denies syncope, Denies rapid heart rate, Denies leg edema and Reports dyspnea Respiratory: Respiratory: Denies change in phlegm color, Reports chest congestion, Reports cough, Reports dyspnea and Denies wheezing Gastrointestinal: Gastrointestinal: Denies constipation, Denies diarrhea, Denies nausea and Denies vomiting Genitourinary: Genitourinary: Denies dysuria, Denies urinary frequency and Denies urinary urgency Musculoskeletal: Musculoskeletal: Reports neck pain (?chronic), Denies numbness and Denies tingling Integumentary/Breasts: Skin/Breast: Denies rash Neurologic: Denies confusion, Denies syncope, Reports headache(s), Denies memory loss, Denies numbness and Denies tingling Psychiatric: Psychiatric: Denies confusion and Denies memory loss Endocrine: Endocrine: Reports fatigue Hematologic/Lymphatic: Hematologic/Lymphatic: Denies easy bleeding and Denies easy bruising Allergic/Immunologic: Allergic/Immunologic: Denies wheezing [facility] Medical History Atrial fibrillation with RVR Sciatica Prediabetes Asbestosis Chronic cough Functional capacity: independent ambulation Surgical History Hx of cardiac cath Social History Household Members: Spouse and Family Housing: House Do you presently have visiting nurse or other home services: No Alcohol intake: never Patient Tobacco Use Status: Never used Tobacco Smoked in Last 30 Days: No Advance Directives: Yes Advance Directives on File: Yes Advance Directives Date on File: 09/13/24 Do you have a plan to hurt others: No Plan service: No Current occupational status: retired Narrative: Former smoker times 34 years, occasional beer, no drug use. Cares for with dementia with help from his son. Meds Allergies Allergy/AdvReac Type Severity Reaction Status Date / Time No Known Allergies Allergy Verified 11/20/24 18:48 Active Medications: Current Medications Acetaminophen (Acetaminophen 325 Mg Tablet) 650 mg PO Q6H PRN PRN Reason: Pain, Mild 1-3,fever,headache Benzonatate (Benzonatate 100 Mg Capsule) 100 mg PO TID PRN PRN Reason: Cough Calcium Carbonate (Calcium Carbonate 750 Mg Tab.Chew) 750 mg PO Q4H PRN PRN Reason: Heartburn Vancomycin HCl 1,000 mg/Vancomycin HCl 750 mg/ Sodium Chloride 535 mls @ 267.5 mls/hr IV ONCE ONE Stop: 11/20/24 22:59 Last Admin: 11/20/24 21:11 Dose: 267.5 mls/hr Levofloxacin (Levaquin) 750 mg in 150 mls @ 100 mls/hr IV Q48H [facility] Magnesium Hydroxide (Milk Of Magnesia 30 Ml Oral.Susp) 30 ml PO DAILY PRN PRN Reason: Constipation Melatonin (Melatonin 3 Mg Tablet) 6 mg PO BEDTIME PRN PRN Reason: Insomnia Ondansetron HCl (Ondansetron Hcl 4 Mg/2 Ml Vial) 4 mg IVPUSH Q8H PRN PRN Reason: Nausea and Vomiting Sodium Chloride (0.9 % Sodium Chloride Flush 3 Ml Syringe) 3 ml IVFLUSH QSHIFT COUNTS INCLUDE 234 BEDS AT THE [facility] Home Medications ?Medication ?Instructions ?Recorded ?Confirmed ?Last Taken ?Type apixaban 2.5 mg tablet (Eliquis) 2.5 mg PO BID 10/03/24 10/03/24 Unknown History metformin 1,000 mg tablet 1,000 mg PO BID 10/03/24 10/03/24 Unknown History Physical Exam 2 Vital Signs and Narrative: Vital Signs: Last Vital Signs Temp 98.4 F 11/20/24 22:02 Pulse 65 11/20/24 22:02 Resp 16 11/20/24 22:02 BP 130/57 L 11/20/24 22:02 Pulse Ox 97 11/20/24 22:02 O2 Del Method Room Air 11/20/24 22:02 O2 Flow Rate 2 11/20/24 22:02 BMI result Body Mass Index 24.5 General: AOx3, no acute distress, son arrived at end of exam to help with history Resp: Crackles right lower/mid lung, no wheezing, diminished. CVS: RRR, murmur GI: +BS, NT, no distention Skin: Warm, dry Neuro: Cranial nerves II-XII grossly intact bilaterally. Motor grossly intact bilaterally. Mild left lateral neck pain with Brudzinski's, patient reports this feels like his chronic neck pain. Extremities: No edema Psych: Appropriate affect Const: General: No confusion Orientation/consciousness: No confusion Eyes: Direct Ophthalmoscopy: No photophobia Neuro: General: No confusion Results Labs 11/20/24 19:01 11/20/24 19:01 Labs: Laboratory Results - last 24 hr 11/20/24 11/20/24 11/20/24 19:01 19:10 21:51 MCV 90.9 MCH 29.2 MCHC 32.1 RDW 16.9 H Plt Count 97 L MPV TNP Immature Gran % (Auto) Cancelled Neut % (Auto) Cancelled Lymph % (Auto) Cancelled [place] % (Auto) Cancelled Eos % (Auto) Cancelled Baso % (Auto) Cancelled Lymph # (Auto) Cancelled [place] # (Auto) Cancelled Eos # (Auto) Cancelled Baso # (Auto) Cancelled Abs Immat Gran (auto) Cancelled Absolute Neuts (auto) Cancelled Absolute Nucleated RBC 0.050 H Nucleated RBC % (auto) 0.1 Neutrophils % (Manual) 74 H Band Neutrophils % 7 H Lymphocytes % (Manual) 3 L Monocytes % (Manual) 14 H Metamyelocytes % 2 Abs Neuts (Manual) 27.4 H Lymphocytes # (Manual) 1.0 L Monocytes # (Manual) 4.7 H Metamyelocytes # 0.7 Platelet Estimate DECREASED Large Platelets PRESENT Plt Morphology Comment NOTED RBC Morphology NOTED Ludwig Cells 1+ (0-2) Anion Gap 16 Estim Creat Clear Calc 48.3 Estimated GFR > 60 Random Glucose 121 H Lactic Acid 2.1 H* Lactic Acid F/U @ 2Hr 1.4 Calcium 8.2 L D Magnesium 1.7 Total Bilirubin 1.1 H Direct Bilirubin 0.3 AST 59 H ALT 32 Alkaline Phosphatase 107 Troponin I High Sens 23.6 D B-Natriuretic Peptide 1067 H Total Protein 6.6 Albumin 3.5 Influenza Type A (PCR) NEGATIVE Influenza Type B (PCR) NEGATIVE RSV RNA Qual (PCR) NEGATIVE SARS-CoV-2 RNA (RT-PCR) NEGATIVE Assessment and Plan (1) Sepsis: Status: Acute (2) Acute exacerbation of bronchiectasis: Status: Acute (3) Hypoxia: Status: Acute (4) Thrombocytopenia: Status: Acute (5) Elevated LFTs: Status: Acute Plan Patient is an 79-year-old male with a past medical history significant for AFib on Eliquis, CAD, NSTEMI 09/12 s/p RENE mid RCA on Plavix, type 2 diabetes, and bronchiectasis secondary to asbestosis, who presented to the ED today due to shortness of breath and weakness for the past few days. Sepsis secondary to acute exacerbation of bronchiectasis with acute hypoxic respiratory failure - WBC 33.8 with bands, lactic 2.1 and 1.4 on repeat, blood cultures x2 pending, not severe sepsis - oxygen saturation dropped to 88% on room air, improved with 2 L via NC - chest x-ray with chronic pleural thickening of the right lung - chest CT with minimal bilateral ground-glass opacities which could represent expiratory lung parenchyma versus mild pulmonary edema, and extensive plaquing of the right pleural cavity with basilar subpleural fibrotic change, similar to prior - abdominopelvic and soft tissue neck CT both negative - EKG normal - UA pending - RSV/flu/COVID negative - BNP elevated, likely secondary to chronic bronchiectasis - given ceftriaxone azithromycin ED, switch to Levaquin - pulmonary consult - monitor CBC and BMP Thrombocytopenia and elevated LFTs - likely secondary to sepsis AFib - EKG with NSR - continue Eliquis and metoprolol CAD, hx recent NSTEMI 08/2024, s/p RENE mid RCA - continue Plavix and atorvastatin Type 2 diabetes - hold metformin - sliding scale insulin - diabetic/cardiac diet Full code - previously was DNR/DNI, discussion with patient and son, patient would like to be full code VTE prophylaxis: Eliquis Patient with sepsis secondary to acute exacerbation of bronchiectasis with acute hypoxic respiratory failure, requiring admission for at least 2 midnights stay for IV antibiotics. Quality Stroke Does the patient have a stroke diagnosis?: No VTE Prior VTE?: No VTE Risk Level:: Medical - moderate - high VTE Device Contraindication: Treatment Not Indicated VTE Drug Contraindication: N/A - Med Ordered
[2024-11-20 22:26] LABS: Appearance Urine Clear; Color Urine Yellow; Glucose Urine UA Negative (Negative); Leukocyte Esterase Urine Negative (Negative); Nitrite Urine Negative (Negative); Specific Gravity - Urine >= 1.030 (1.005-1.025); UMIC TRIGGER UACC YES; Urine Blood Negative (Negative); Urine Ketones Negative (Negative); Urine Protein 30 (1+) mg/dL (Neg-Trace)
[2024-11-20 22:28] LABS: Bacteria Urine None Seen (None Seen); Hyaline Casts Urine 0-2 /LPF (0-2); RBC Urine 0-2 /HPF (0-2); Squamous Epithelial Cell Urine 0-2 /HPF (0-2); WBC Urine 0-5 /HPF (0-5)
[2024-11-20] MEDS: levoFLOXacin/D5W 750 MG/150 ML PIGGYBACK 100 MG IV (23:08)
--- NOTE | 2024-11-20 23:13 | PC.NURSE ---
this rn assumed care of pt, pt a&ox4, respirations even and unlabored. vss. antibiotics administered per mar, family at bedside.
[2024-11-21 05:39] LABS: Hemoglobin 10.7 g/dl (14.0-18.0); NRBC Pct Auto 0.1 /100WBC (0.0-0.2)
[2024-11-21 05:41] LABS: Hematocrit 34.1 % (42.0-52.0); Mean Corpuscular HGB Conc 31.4 g/dl (31.0-36.0); Mean Corpuscular Volume 92.4 fL (80.0-98.0); Mean Platelet Volume 13.7 fL (9.4-12.4); Red Blood Count 3.69 X10*6/uL (4.60-5.80); Red Cell Distribution Width 17.2 % (11.0-16.0); White Blood Count 28.6 X10*3/uL (4.8-10.8)
[2024-11-21 05:43] LABS: PLT ABN DIST 1; Platelet Count 84 X10*3/uL (160-400)
[2024-11-21 05:54] LABS: Anion Gap 14 (12-20); Blood Urea Nitrogen 25 mg/dL (9-16); Calcium 8.4 mg/dL (8.4-10.2); Carbon Dioxide 24 mmol/L (22-29); Chloride 106 mmol/L (96-108); Creatinine Clr Calc Pharmacy 37.8; Estimated Glomerular Filt Rate 47; Glucose Random 81 mg/dL (60-115); Potassium 3.8 mmol/L (3.3-5.1); Sodium 140 mmol/L (135-145)
[2024-11-21 06:05] LABS: Band Neutrophils Percent 5 % (3-5); Lymphocytes Percent Manual 7 % (20-40); Metamyelocytes Absolute 0.3 X10*3/uL; Metamyelocytes Percent 1 %; Monocytes Absolute Manual 4.6 X10*3/uL (0.1-1.2); Monocytes Percent Manual 16 % (2-11); Myelocytes Absolute 0.3 X10*/uL; Myelocytes Percent 1 %; Neutrophils Absolute Manual 21.5 X10*3/uL (2.0-8.3); Neutrophils Percent Manual 70 % (45-73); RBC Morphology NOTED
[2024-11-21 06:07] LABS: Basophilic Stippling 1+ (0-2) /OIF; Burr Cells 1+ (0-2) /OIF; Large Platelet PRESENT; Platelet Estimate DECREASED (NORMAL); Platelet Morphology Comment NOTED; Polychromasia 1+ (0-2) /OIF
[2024-11-21 06:42] VITALS: BP 159/74; PULSE 76; RESP 16; TEMP 37.3; O2SAT 99
--- NOTE | 2024-11-21 07:19 | P.PNIM_ITS ---
Subjective Subjective Date of Service: 11/21/24 Interval History: Complaining of mild cough, shortness of breath with exertion, denies fever, no chills, denies PND, no orthopnea, no lower extremity edema Concerned about elevated WBC count. Review of Systems All other system reviewed and negative. Physical Exam 2 Vital Signs: Vital Signs: Last Vital Signs Temp 99.1 F 11/21/24 06:42 Pulse 76 11/21/24 06:42 Resp 16 11/21/24 06:42 BP 159/74 H 11/21/24 06:42 Pulse Ox 99 11/21/24 06:42 O2 Del Method Nasal Cannula 11/21/24 06:42 O2 Flow Rate 2 11/21/24 06:42 BMI result Body Mass Index 24.5 Const: Other: General resting comfortably in no acute distress. Neck no JVD. CVS regular rate rhythm, Respiratory lungs right basilar rhonchi, no respiratory distress. Gastrointestinal abdomen soft, non tender, bowel sounds audible, no no guarding , no rigidity. Extremities no edema. Neuro non focal Skin no rash Objective Data Active Medications Acetaminophen (Acetaminophen 325 Mg Tablet) 650 mg PO Q6H PRN PRN Reason: Pain, Mild 1-3,fever,headache Benzonatate (Benzonatate 100 Mg Capsule) 100 mg PO TID PRN PRN Reason: Cough Calcium Carbonate (Calcium Carbonate 750 Mg Tab.Chew) 750 mg PO Q4H PRN PRN Reason: Heartburn Glucose (Glucose Gel 15 Gm Gel..Gram.) 15 gm PO Q15M PRN; Protocol PRN Reason: per Hypoglycemia Standing Ord. Levofloxacin (Levaquin) 750 mg in 150 mls @ 100 mls/hr IV Q48H [facility] Last Infusion: 11/21/24 00:48 Dose: Infused Documented By: LAM Dextrose ([id number]) 250 mls @ 750 mls/hr IV Q15M PRN; Protocol PRN Reason: per Hypoglycemia Standing Ord. Insulin Human Lispro (Insulin Lispro 100 Unit/Ml 3 Ml Vial) 0 unit SUBCUT QIDACHS [facility]; Protocol Magnesium Hydroxide (Milk Of Magnesia 30 Ml Oral.Susp) 30 ml PO DAILY PRN PRN Reason: Constipation Melatonin (Melatonin 3 Mg Tablet) 6 mg PO BEDTIME PRN PRN Reason: Insomnia Ondansetron HCl (Ondansetron Hcl 4 Mg/2 Ml Vial) 4 mg IVPUSH Q8H PRN PRN Reason: Nausea and Vomiting Sodium Chloride (0.9 % Sodium Chloride Flush 3 Ml Syringe) 3 ml IVFLUSH QSHIFT [facility] Last Admin: 11/21/24 00:48 Dose: Not Given Documented By: LAM Non-Admin Reason: IV Running Labs 11/21/24 05:29 11/21/24 05:29 Labs: Laboratory Results - last 24 hr 11/20/24 11/20/24 11/20/24 19:01 19:10 21:51 MCV 90.9 MCH 29.2 MCHC 32.1 RDW 16.9 H Plt Count 97 L MPV TNP Immature Gran % (Auto) Cancelled Neut % (Auto) Cancelled Lymph % (Auto) Cancelled [place] % (Auto) Cancelled Eos % (Auto) Cancelled Baso % (Auto) Cancelled Lymph # (Auto) Cancelled [place] # (Auto) Cancelled Eos # (Auto) Cancelled Baso # (Auto) Cancelled Abs Immat Gran (auto) Cancelled Absolute Neuts (auto) Cancelled Absolute Nucleated RBC 0.050 H Nucleated RBC % (auto) 0.1 Neutrophils % (Manual) 74 H Band Neutrophils % 7 H Lymphocytes % (Manual) 3 L Monocytes % (Manual) 14 H Metamyelocytes % 2 Myelocytes % Abs Neuts (Manual) 27.4 H Lymphocytes # (Manual) 1.0 L Monocytes # (Manual) 4.7 H Metamyelocytes # 0.7 Myelocytes # Platelet Estimate DECREASED Large Platelets PRESENT Plt Morphology Comment NOTED RBC Morphology NOTED Polychromasia Basophilic Stippling [place] Cells 1+ (0-2) Anion Gap 16 Estim Creat Clear Calc 48.3 Estimated GFR > 60 Random Glucose 121 H Lactic Acid 2.1 H* Lactic Acid F/U @ 2Hr 1.4 Calcium 8.2 L D Magnesium 1.7 Total Bilirubin 1.1 H Direct Bilirubin 0.3 AST 59 H ALT 32 Alkaline Phosphatase 107 Troponin I High Sens 23.6 D B-Natriuretic Peptide 1067 H Total Protein 6.6 Albumin 3.5 Urine Color Urine Appearance Urine pH Ur Specific [place] Urine Protein Urine Glucose (UA) Urine Ketones Urine Blood Urine Nitrite Ur Leukocyte Esterase Urine RBC Urine WBC Ur Squamous Epith Cells Urine Bacteria Hyaline Casts Influenza Type A (PCR) NEGATIVE Influenza Type B (PCR) NEGATIVE RSV RNA Qual (PCR) NEGATIVE SARS-CoV-2 RNA (RT-PCR) NEGATIVE 11/20/24 11/21/24 22:20 05:29 MCV 92.4 MCH 29.0 MCHC 31.4 RDW 17.2 H Plt Count 84 L MPV 13.7 H Immature Gran % (Auto) Cancelled Neut % (Auto) Cancelled Lymph % (Auto) Cancelled [place] % (Auto) Cancelled Eos % (Auto) Cancelled Baso % (Auto) Cancelled Lymph # (Auto) Cancelled [place] # (Auto) Cancelled Eos # (Auto) Cancelled Baso # (Auto) Cancelled Abs Immat Gran (auto) Cancelled Absolute Neuts (auto) Cancelled Absolute Nucleated RBC 0.030 H Nucleated RBC % (auto) 0.1 Neutrophils % (Manual) 70 Band Neutrophils % 5 Lymphocytes % (Manual) 7 L Monocytes % (Manual) 16 H Metamyelocytes % 1 Myelocytes % 1 Abs Neuts (Manual) 21.5 H Lymphocytes # (Manual) 2.0 Monocytes # (Manual) 4.6 H Metamyelocytes # 0.3 Myelocytes # 0.3 Platelet Estimate DECREASED Large Platelets PRESENT Plt Morphology Comment NOTED RBC Morphology NOTED Polychromasia 1+ (0-2) Basophilic Stippling 1+ (0-2) Ludwig Cells 1+ (0-2) Anion Gap 14 Estim Creat Clear Calc 37.8 Estimated GFR 47 Random Glucose 81 Lactic Acid Lactic Acid F/U @ 2Hr Calcium 8.4 Magnesium Total Bilirubin Direct Bilirubin AST ALT Alkaline Phosphatase Troponin I High Sens B-Natriuretic Peptide Total Protein Albumin Urine Color Yellow Urine Appearance Clear Urine pH 5.0 Ur Specific [place] >= 1.030 H Urine Protein 30 (1+) H Urine Glucose (UA) Negative Urine Ketones Negative Urine Blood Negative Urine Nitrite Negative Ur Leukocyte Esterase Negative Urine RBC 0-2 Urine WBC 0-5 Ur Squamous Epith Cells 0-2 Urine Bacteria None Seen Hyaline Casts 0-2 Influenza Type A (PCR) Influenza Type B (PCR) RSV RNA Qual (PCR) SARS-CoV-2 RNA (RT-PCR) Assessment and Plan (1) Acute exacerbation of bronchiectasis: Status: Acute (2) Sepsis: Status: Acute (3) Hypoxia: Status: Acute Plan 79-year-old male with a past medical history significant for AFib on Eliquis, CAD, NSTEMI 09/12 s/p RENE mid RCA on Plavix, type 2 diabetes, and bronchiectasis secondary to asbestosis, who presented to the ED today due to shortness of breath and weakness for the past few days. Sepsis secondary to acute exacerbation of bronchiectasis /pneumonitis with acute hypoxic respiratory failure - WBC 33.8 with bands likely due to infection and steroids, lactic 2.1 and 1.4 on repeat, blood cultures x2 pending, not severe sepsis - oxygen saturation dropped to 88% on room air, improved with 2 L via NC - chest x-ray with chronic pleural thickening of the right lung - chest CT with minimal bilateral ground-glass opacities which could represent expiratory lung parenchyma versus mild pulmonary edema, and extensive plaquing of the right pleural cavity with basilar subpleural fibrotic change similar to prior - abdominopelvic and soft tissue neck CT both negative - EKG normal - UA negative - RSV/flu/COVID negative/respiratory viral panel negative - BNP 1067 , no evidence of CHF - echo 09/12 showed EF 40-45%, regional wall motion abnormality and abnormal diastolic function - continue IV Levaquin day 1 - seen by Dr. Rebolledo he agrees with current treatment Acute hypoxic respiratory failure due to above will wean oxygen as tolerated. 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 follow bmp Chronic Thrombocytopenia and elevated LFTs follow labs AFib EKG with NSR - continue Eliquis and metoprolol CAD, hx recent NSTEMI 08/2024, s/p RENE mid RCA - continue Plavix, metoprolol and atorvastatin Type 2 diabetes - continue diabetic diet and insulin sliding scale hold metformin Full code - previously was DNR/DNI, discussion with patient and son, patient would like to be full code VTE prophylaxis: Eliquis Patient with sepsis secondary to acute exacerbation of bronchiectasis with acute hypoxic respiratory failure, therefore will require continued inpatient hospitalization .antibiotics. Quality Stroke Does the patient have a stroke diagnosis?: No VTE Prior VTE?: No VTE Risk Level:: Medical - moderate - high VTE Device Contraindication: Treatment Not Indicated VTE Drug Contraindication: N/A - Med Ordered
[2024-11-21 07:29] VITALS: BMI 26.7
[2024-11-21] MEDS: 0.9 % Sodium Chloride Flush 3 ML SYRINGE IVFLUSH ×3 (07:30→21:47)
[2024-11-21 07:35] VITALS: BP 168/78; PULSE 78; RESP 16; TEMP 36.2; O2SAT 94
[2024-11-21 07:37] LABS: Glucose, Whole Blood 80 mg/dL (60-115)
[2024-11-21] MEDS: Apixaban 2.5 MG TABLET PO ×2 (08:35→21:47)
[2024-11-21] MEDS: Clopidogrel Bisulfate 75 MG TABLET PO (08:35)
[2024-11-21] MEDS: Metoprolol Tartrate 25 MG TABLET PO ×2 (08:35→21:46)
--- NOTE | 2024-11-21 09:51 | PHA.MEDREC ---
Pharmacy Consult ? Medication Reconciliation Pharmacy has completed the medication reconciliation. Patient dosen't know his meds, they were already continued. Reviewed med rec done by nursing using pharmacy claims.
--- NOTE | 2024-11-21 09:55 | MHC.CM.PN ---
IMM DELIVERED. PATIENT LIVES AT HOME W/ , SON, GRANDSON. FUNCTIONALLY INDEPENDENT. USES CANE PRN TYPICALLY WHEN FIRST WAKING UP. PCP RENA SINGER MD HCP ON FILE AND VERIFIED. DP: GOAL IS HOME SELF CARE, SON TO TRANSPORT. CM WILL CONTINUE TO FOLLOW.
[2024-11-21 10:30] LABS: Adenovirus PCR Not Detected (Not Detect.); Bordetella parapertussis PCR Not Detected (Not Detect.); Bordetella pertussis PCR Not Detected (Not Detect.); Chlamydia pneumoniae PCR Not Detected (Not Detect.); Coronavirus 229E PCR Not Detected (Not Detect.); Coronavirus HKU1 PCR Not Detected (Not Detect.); Coronavirus NL63 PCR Not Detected (Not Detect.); Coronavirus OC43 PCR Not Detected (Not Detect.); Human metapneumovirus PCR Not Detected (Not Detect.); Influenza A PCR Not Detected (Not Detect.); Influenza B PCR Not Detected (Not Detect.); Mycoplasma pneumoniae PCR Not Detected (Not Detect.); Parainfluenza 1 PCR Not Detected (Not Detect.); Parainfluenza 2 PCR Not Detected (Not Detect.); Parainfluenza 3 PCR Not Detected (Not Detect.); Parainfluenza 4 PCR Not Detected (Not Detect.); RSV PCR Not Detected (Not Detect.); Rhino/Enterovirus PCR Not Detected (Not Detect.)
[2024-11-21 10:37] LABS: SARS-CoV-2 PCR Not Detected (Not Detect.)
[2024-11-21 11:21] LABS: Glucose, Whole Blood 143 mg/dL (60-115)
--- NOTE | 2024-11-21 14:39 | P.CONPL_ITS ---
History of Present Illness History of Present Illness Consult date: 11/21/24 Chief complaint: Cough,Dyspnea Narrative: This is an inpatient pulmonary consultation. 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 He reports just over a week ago he was having severe coughing fits and called his PCP for a prescription for prednisone 20 mg x 5 days. He reports at that time he had a mildly productive cough without any color. He reports that his son was recently sick and he helps care for him and his . The patient did have a respiratory viral panel which was all negative. In addition to that he had a CT scan of the chest that I personally reviewed demonstrating the chronic interstitial changes and plaques due to be asbestosis. He does have some crackles in the right base which could be related to his chronic disease although a occult lower respiratory infection can not be ruled out. Review of Systems 2 Constitutional: Constitutional: Denies body ache(s), Denies chills, Reports fatigue, Denies fever(s) and Reports headache(s) Eyes: Eyes: Denies change in vision and Denies photophobia ENT: Reports headache(s), Denies nasal congestion, Denies nasal discharge, Reports neck pain (?chronic) and Denies sore throat Cardiovascular: Cardiovascular: Denies chest pain, Denies syncope, Denies rapid heart rate, Denies leg edema and Reports dyspnea Respiratory: Respiratory: Denies change in phlegm color, Reports chest congestion, Reports cough, Reports dyspnea and Denies wheezing Gastrointestinal: Gastrointestinal: Denies constipation, Denies diarrhea, Denies nausea and Denies vomiting Genitourinary: Genitourinary: Denies dysuria, Denies urinary frequency and Denies urinary urgency Musculoskeletal: Musculoskeletal: Reports neck pain (?chronic), Denies numbness and Denies tingling Integumentary/Breasts: Skin/Breast: Denies rash Neurologic: Denies confusion, Denies syncope, Reports headache(s), Denies memory loss, Denies numbness and Denies tingling Psychiatric: Psychiatric: Denies confusion and Denies memory loss Endocrine: Endocrine: Reports fatigue Hematologic/Lymphatic: Hematologic/Lymphatic: Denies easy bleeding and Denies easy bruising Allergic/Immunologic: Allergic/Immunologic: Denies wheezing [facility] Past Medical History Medical History (Updated 11/21/24 @ 14:42 by Samir Rebolledo MD) COPD exacerbation Atrial fibrillation with RVR Sciatica Prediabetes Asbestosis Chronic cough Surgical History Surgical History Hx of cardiac cath Social History Social History Household Members: Spouse, Family and Children Housing: House Do you presently have visiting nurse or other home services: No Alcohol intake: never Patient Tobacco Use Status: Never used Tobacco Advance Directives Date on File: 09/13/24 service: No Current occupational status: retired [employer] Allergies Allergy/AdvReac Type Severity Reaction Status Date / Time No Known Allergies Allergy Verified 11/20/24 18:48 Active Medications: Current Medications Acetaminophen (Acetaminophen 325 Mg Tablet) 650 mg PO Q6H PRN PRN Reason: Pain, Mild 1-3,fever,headache Apixaban (Apixaban 2.5 Mg Tablet) 2.5 mg PO BID [facility] Last Admin: 11/21/24 08:35 Dose: 2.5 mg Atorvastatin Calcium (Atorvastatin Calcium 40 Mg Tablet) 40 mg PO BEDTIME [facility] Benzonatate (Benzonatate 100 Mg Capsule) 100 mg PO TID PRN PRN Reason: Cough Calcium Carbonate (Calcium Carbonate 750 Mg Tab.Chew) 750 mg PO Q4H PRN PRN Reason: Heartburn Clopidogrel Bisulfate (Clopidogrel Bisulfate 75 Mg Tablet) 75 mg PO DAILY [facility] Last Admin: 11/21/24 08:35 Dose: 75 mg Glucose (Glucose Gel 15 Gm Gel..Gram.) 15 gm PO Q15M PRN; Protocol PRN Reason: per Hypoglycemia Standing Ord. Levofloxacin (Levaquin) 750 mg in 150 mls @ 100 mls/hr IV Q48H [facility] Last Infusion: 11/21/24 00:48 Dose: Infused Dextrose (D10) 250 mls @ 750 mls/hr IV Q15M PRN; Protocol PRN Reason: per Hypoglycemia Standing Ord. Insulin Human Lispro (Insulin Lispro 100 Unit/Ml 3 Ml Vial) 0 unit SUBCUT QIDACHS [facility]; Protocol Last Admin: 11/21/24 12:04 Dose: Not Given Magnesium Hydroxide (Milk Of Magnesia 30 Ml Oral.Susp) 30 ml PO DAILY PRN PRN Reason: Constipation Melatonin (Melatonin 3 Mg Tablet) 6 mg PO BEDTIME PRN PRN Reason: Insomnia Metoprolol Tartrate (Metoprolol Tartrate 25 Mg Tablet) 25 mg PO BID [facility]; Protocol Last Admin: 11/21/24 08:35 Dose: 25 mg Ondansetron HCl (Ondansetron Hcl 4 Mg/2 Ml Vial) 4 mg IVPUSH Q8H PRN PRN Reason: Nausea and Vomiting Sodium Chloride (0.9 % Sodium Chloride Flush 3 Ml Syringe) 3 ml IVFLUSH QSHIFT [facility] Last Admin: 11/21/24 07:30 Dose: 3 ml Home Medications ?Medication ?Instructions ?Recorded ?Confirmed ?Last Taken ?Type apixaban 2.5 mg tablet (Eliquis) 2.5 mg PO BID 10/03/24 11/21/24 Unknown History metformin 1,000 mg tablet 1,000 mg PO BID 10/03/24 11/21/24 Unknown History Physical Exam 2 Vital Signs: Vital Signs: Last Vital Signs Temp 97.2 F 11/21/24 07:35 Pulse 78 11/21/24 07:35 Resp 16 11/21/24 07:35 BP 168/78 H 11/21/24 07:35 Pulse Ox 94 11/21/24 07:35 O2 Del Method Nasal Cannula 11/21/24 07:35 O2 Flow Rate 2 11/21/24 07:35 BMI result Body Mass Index 26.7 Const: Other: General resting comfortably in no acute distress. Neck no JVD. CVS regular rate rhythm, Respiratory lungs right basilar rhonchi, +rales RLL, no respiratory distress. Gastrointestinal abdomen soft, non tender, bowel sounds audible, no no guarding , no rigidity. Extremities no edema. Neuro non focal Skin no rash General: No confusion Orientation/consciousness: No confusion Eyes: Direct Ophthalmoscopy: No photophobia Neuro: General: No confusion Results Laboratory Findings 11/21/24 05:29 11/21/24 05:29 Abnormal lab findings: Abnormal Labs 11/20/24 11/20/24 11/20/24 19:01 19:10 22:20 WBC 33.8 H* RBC 3.97 L Hgb 11.6 L Hct 36.1 L RDW 16.9 H Plt Count 97 L MPV Absolute Nucleated RBC 0.050 H Neutrophils % (Manual) 74 H Band Neutrophils % 7 H Lymphocytes % (Manual) 3 L Monocytes % (Manual) 14 H Abs Neuts (Manual) 27.4 H Lymphocytes # (Manual) 1.0 L Monocytes # (Manual) 4.7 H Carbon Dioxide 21 L BUN 29 H Creatinine POC Glucose Random Glucose 121 H Lactic Acid 2.1 H* Calcium 8.2 L D Total Bilirubin 1.1 H AST 59 H B-Natriuretic Peptide 1067 H Ur Specific [place] >= 1.030 H Urine Protein 30 (1+) H 11/21/24 11/21/24 05:29 11:13 WBC 28.6 H RBC 3.69 L Hgb 10.7 L Hct 34.1 L RDW 17.2 H Plt Count 84 L MPV 13.7 H Absolute Nucleated RBC 0.030 H Neutrophils % (Manual) Band Neutrophils % Lymphocytes % (Manual) 7 L Monocytes % (Manual) 16 H Abs Neuts (Manual) 21.5 H Lymphocytes # (Manual) Monocytes # (Manual) 4.6 H Carbon Dioxide BUN 25 H Creatinine 1.43 H POC Glucose 143 H Random Glucose Lactic Acid Calcium Total Bilirubin AST B-Natriuretic Peptide Ur Specific [place] Urine Protein Assessment and Plan (1) Acute exacerbation of bronchiectasis: Status: Acute (2) COPD exacerbation: Status: Acute Plan Complete a course of Levofloxacin prednisone taper respiratory therapy Wean off O2 to keep pox>90% F/U with outpt pulmonary Procedures Date of Service Date of Service: 11/21/24
[2024-11-21 15:18] VITALS: BP 134/67; PULSE 71; RESP 18; TEMP 36.2; O2SAT 97
[2024-11-21 16:33] LABS: Glucose, Whole Blood 133 mg/dL (60-115)
[2024-11-21 19:21] VITALS: BP 157/80; PULSE 83; RESP 18; TEMP 36.4; O2SAT 94
[2024-11-21 20:05] LABS: Glucose, Whole Blood 171 mg/dL (60-115)
[2024-11-21] MEDS: Insulin Lispro 100 UNIT/ML 3 ML VIAL SUBCUT (21:47)
[2024-11-21] MEDS: Atorvastatin Calcium 40 MG TABLET PO (21:47)
[2024-11-22 03:48] VITALS: BP 147/65; PULSE 65; RESP 18; TEMP 36.8; O2SAT 94
[2024-11-22 05:56] LABS: Hemoglobin 10.7 g/dl (14.0-18.0); Mean Corpuscular HGB Conc 31.5 g/dl (31.0-36.0); Mean Corpuscular Hemoglobin 28.8 pg (27.0-33.0); Mean Corpuscular Volume 91.4 fL (80.0-98.0); Mean Platelet Volume 12.7 fL (9.4-12.4); NRBC Pct Auto 0.1 /100WBC (0.0-0.2); PLT CLUMP 1; Red Blood Count 3.72 X10*6/uL (4.60-5.80); Red Cell Distribution Width 17.3 % (11.0-16.0)
[2024-11-22 05:57] LABS: White Blood Count 22.6 X10*3/uL (4.8-10.8)
[2024-11-22 05:58] LABS: Platelet Count 77 X10*3/uL (160-400)
[2024-11-22 06:17] LABS: Anion Gap 11 (12-20); Blood Urea Nitrogen 25 mg/dL (9-16); Calcium 8.3 mg/dL (8.4-10.2); Carbon Dioxide 24 mmol/L (22-29); Chloride 108 mmol/L (96-108); Creatinine Clr Calc Pharmacy 39.8; Estimated Glomerular Filt Rate 50; Glucose Random 107 mg/dL (60-115); Sodium 139 mmol/L (135-145)
[2024-11-22 06:33] LABS: Procalcitonin 0.22 ng/mL
[2024-11-22 07:04] VITALS: BP 138/65; PULSE 65; RESP 16; TEMP 36.5; O2SAT 98
[2024-11-22 07:24] LABS: Glucose, Whole Blood 104 mg/dL (60-115)
[2024-11-22] MEDS: Metoprolol Tartrate 25 MG TABLET PO (07:53)
[2024-11-22] MEDS: Apixaban 2.5 MG TABLET PO (07:53)
[2024-11-22] MEDS: Clopidogrel Bisulfate 75 MG TABLET PO (07:53)
[2024-11-22] MEDS: 0.9 % Sodium Chloride Flush 3 ML SYRINGE IVFLUSH (07:53)
--- NOTE | 2024-11-22 09:54 | P.DS_ITS ---
DS: Providers Provider Date of Service: 11/22/24 Date of admission: 11/20/24 22:17 Date of discharge: 11/22/24 Primary care physician: Mode Thompson MD Consults: 11/20/24 22:17 Consult to Pulmonology Routine Consulting Provider: [facility] Reason for consultation: cough, dyspnea, hypoxia DS: Diagnosis Discharge Diagnosis (1) Acute exacerbation of bronchiectasis: Status: Acute (2) COPD exacerbation: Status: Acute DS: Summary Hospital Course Hospital Course: History of presenting illness: Date of Service: 11/20/24 Attending physician on admission: Nia Kuo Chief Complaint: SOB, weakness Patient is an 79-year-old male with a past medical history significant for AFib on Eliquis, CAD, NSTEMI 09/12 s/p RENE mid RCA on Plavix, and bronchiectasis secondary to asbestosis, who presented to the ED today due to shortness of breath and weakness for the past few days. He reports just over a week ago he w as having severe coughing fits and called his PCP for a prescription for prednisone 20 mg x 5 days. He reports at that time he had a mildly productive cough without any color. He reports that his son was recently sick and he helps care for him and his . He denies any nausea, vomiting, sore throat, congestion, runny nose, sensitivity to light, abdominal pain, diarrhea, numbness or tingling. He did report a mild headache and neck pain beginning today which has improved since arriving here. Neck pain is located to the left side. He denies any measured fevers at home. He also denies any urinary symptoms including frequency, urgency or dysuria. 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 Rebolledo who agreed with treatment for pneumonitis, chest x-ray showed chronic pleural thickening of the right lung with underlying history of asbestosis chest CT showed minimal bilateral ground-glass opacities and extensive plaquing of right pleural cavity with basilar subpleural fibrotic changes similar to prior, abdominopelvic and soft tissue neck CT both negative, UA was unremarkable respiratory viral path to gene panel negative, clinically had no evidence of CHF despite elevated BNP 1067, echo 09/12 showed EF 40-45%, regional wall motion abnormality and abnormal diastolic function, since patient is hemodynamically stable WBC trending down and were likely elevated to recent steroid use patient is being discharged home to finish a 5 day course of Levaquin. Acute hypoxic respiratory failure due to above , hypoxia resolved. TALA on ckd3 resolved. Chronic Thrombocytopenia and elevated LFTs recommend outpatient follow-up AFib EKG with NSR - continue Eliquis and metoprolol. CAD, hx recent NSTEMI 08/2024, s/p RENE mid RCA, continue Plavix, metoprolol and atorvastatin Type 2 diabetes - continue diabetic diet and metformin. Time Attestation Discharge Coordination Time (in mins): 38 Quality: Safe Use of Opioids Does Pt have an Active Cancer Diagnosis on the Problem List?: No Quality: Stroke Does the patient have a stroke diagnosis?: No Physical Exam Vital Signs: Vital Signs: Last Vital Signs Temp 97.7 F 11/22/24 07:04 Pulse 65 11/22/24 07:04 Resp 16 11/22/24 07:04 BP 138/65 11/22/24 07:04 Pulse Ox 98 11/22/24 07:04 O2 Del Method Nasal Cannula 11/22/24 07:04 O2 Flow Rate 2 11/22/24 07:04 BMI result Body Mass Index 26.7 Const: Other: General resting comfortably in no acute distress. Neck no JVD. CVS regular rate rhythm, Respiratory lungs right basilar rhonchi, no respiratory distress. Gastrointestinal abdomen soft, non tender, bowel sounds audible, no guarding , no rigidity. Extremities no edema. Neuro non focal Skin no rash DS: Data Data Completed and Pending Labs on day of discharge: Laboratory Results - last 24 hr 11/21/24 11/21/24 11/21/24 08:40 11:13 16:26 WBC RBC Hgb Hct MCV MCH MCHC RDW Plt Count MPV Absolute Nucleated RBC Nucleated RBC % (auto) Sodium Potassium Chloride Carbon Dioxide Anion Gap BUN Creatinine Estim Creat Clear Calc Estimated GFR POC Glucose 143 H 133 H Random Glucose Calcium Procalcitonin Respiratory Panel Briceño See Note Adenovirus (Rapid PCR) Not Detected B.pert (TEM-PCR) Not Detected B.parapertussis DNA PCR Not Detected C. pneumoniae DNA (PCR) Not Detected Coronavirus OC43 (PCR) Not Detected Coronavirus HKU1 (PCR) Not Detected Coronavirus 229E (PCR) Not Detected Coronavirus NL63 (PCR) Not Detected Human Metapneumovir PCR Not Detected Influenza A (RT-PCR) Not Detected Influenza B (RT-PCR) Not Detected M. pneumoniae (PCR) Not Detected Parainfluenza 1 (PCR) Not Detected Parainfluenza 2 (PCR) Not Detected Parainfluenza 3 (PCR) Not Detected Parainfluenza 4 (PCR) Not Detected RSV (PCR) Not Detected Entero/Rhino (PCR) Not Detected SARS-CoV-2 RNA (RT-PCR) Not Detected 11/21/24 11/22/24 11/22/24 19:59 05:45 07:07 WBC 22.6 H RBC 3.72 L Hgb 10.7 L Hct 34.0 L MCV 91.4 MCH 28.8 MCHC 31.5 RDW 17.3 H Plt Count 77 L MPV 12.7 H Absolute Nucleated RBC 0.020 H Nucleated RBC % (auto) 0.1 Sodium 139 Potassium 4.0 Chloride 108 Carbon Dioxide 24 Anion Gap 11 L BUN 25 H Creatinine 1.36 Estim Creat Clear Calc 39.8 Estimated GFR 50 POC Glucose 171 H 104 Random Glucose 107 Calcium 8.3 L Procalcitonin 0.22 Respiratory Panel [place]ño Adenovirus (Rapid PCR) B.pert (TEM-PCR) B.parapertussis DNA PCR C. pneumoniae DNA (PCR) Coronavirus OC43 (PCR) Coronavirus HKU1 (PCR) Coronavirus 229E (PCR) Coronavirus NL63 (PCR) Human Metapneumovir PCR Influenza A (RT-PCR) Influenza B (RT-PCR) M. pneumoniae (PCR) Parainfluenza 1 (PCR) Parainfluenza 2 (PCR) Parainfluenza 3 (PCR) Parainfluenza 4 (PCR) RSV (PCR) Entero/Rhino (PCR) SARS-CoV-2 RNA (RT-PCR) Preliminary micro results at discharge 11/20/24 19:10 Blood Culture - Preliminary Blood - Venous No growth after 24 hours. 11/20/24 19:01 Blood Culture - Preliminary Blood - Venous No growth after 24 hours. Discharge Plan Discharge Anticipated Discharge Date/Time: 11/22/24 09:46 Patient Disposition: Home, Self-Care Discharge Diagnosis: Acute hypoxic respiratory failure Pneumonitis Referrals: Mode Thompson MD [Primary Care Provider] - 1 Week Discharge Medications: New levofloxacin 750 mg tablet 750 mg PO Q48H Qty: 2 0RF Continued atorvastatin 40 mg Tablet 40 mg PO BEDTIME Qty: 30 0RF clopidogrel 75 mg Tablet 75 mg PO DAILY Qty: 30 0RF metoprolol tartrate 25 mg Tablet 25 mg PO BID Qty: 60 0RF Protocol: Hold for SBP/HR < HOLD for SBP < : 90 HOLD for HR < : 60 Eliquis 2.5 mg tablet 2.5 mg PO BID metformin 1,000 mg tablet 1,000 mg PO BID Discharge Orders: Discharge Order (Routine); Ordered 11/22/24 Ordered By: Wellington Rowan Diet: Diabetic diet Activity on Discharge: As tolerated Stand Alone Forms: Patient Portal Discharge page Print Language: Divehi Care Plan Goals: Chronic bronchiectasis/superadded infection take Levaquin 750 mg q.48h, 2 tablets dispensed Elevated WBC due to steroids Cough medication as needed Health Concerns: Continue all home medications Plan of Treatment: Outpatient follow-up with primary care physician Assessment: As above
[2024-11-22 10:27] VITALS: O2SAT 96
--- NOTE | 2024-11-22 10:31 | MHC.CM.PN ---
IMM 11/21/24 Patient is discharged to home self care. He has arranged for transportation home.
[2024-11-22 11:04] LABS: Glucose, Whole Blood 143 mg/dL (60-115)
== END 2024-11-22 15:49 | disposition home or self-care (01) | DRG 871 ==
LOC: HO.ED 20:53 → HO.EDOVER 22:24 → HO.S3 11-21 05:26
PROVIDERS: Admitting Provider Student in an Organized Health Care Education/Training Program; Emergency Provider Emergency Medicine; PCP Internal Medicine; Visit Provider Hospitalist
DX: A41.9 Sepsis, unspecified organism (principal); J96.01 Acute respiratory failure with hypoxia; J47.1 Bronchiectasis with (acute) exacerbation; N17.9 Acute kidney failure, unspecified; N18.30 Chronic kidney disease, stage 3 unspecified; J61 Pneumoconiosis due to asbestos and other mineral fibers; E03.9 Hypothyroidism, unspecified; I48.91 Unspecified atrial fibrillation; Z66 Do not resuscitate; D69.59 Other secondary thrombocytopenia; E11.22 Type 2 diabetes mellitus with diabetic chronic kidney disease; I25.10 Atherosclerotic heart disease of native coronary artery without angina pectoris; I25.2 Old myocardial infarction; R79.89 Other specified abnormal findings of blood chemistry; Z20.822 Contact with and (suspected) exposure to COVID-19; Z95.5 Presence of coronary angioplasty implant and graft; Z79.01 Long term (current) use of anticoagulants; Z79.02 Long term (current) use of antithrombotics/antiplatelets; Z79.84 Long term (current) use of oral hypoglycemic drugs; Z79.899 Other long term (current) drug therapy
CPT/HCPCS: 0241U; 36415; 70491; 71045; 71250; 74176; 80048; 80076; 81001; 82947; 83605; 83735; 83880; 84145; 84484; 85007; 85027; 87040; 87633; 93005; 99285; J0696; J1956; J3370; Q9967

== ENCOUNTER → 2024-11-20 18:50 | Outpatient (BNV) | payer MEDICARE, BC, SELFPAY | PROVIDERS: Admitting Provider Student in an Organized Health Care Education/Training Program; Emergency Provider Emergency Medicine; PCP Internal Medicine; Visit Provider Internal Medicine Cardiovascular Disease | DX: R94.31 Abnormal electrocardiogram [ECG] [EKG] (principal) | CPT/HCPCS: 93010 ==

== ENCOUNTER → 2024-11-20 18:51 | Outpatient (BNV) | payer MEDICARE, BC, SELFPAY | PROVIDERS: Emergency Provider Emergency Medicine; PCP Internal Medicine; Visit Provider Radiology Diagnostic Radiology | DX: A41.9 Sepsis, unspecified organism (principal); M54.2 Cervicalgia; R00.1 Bradycardia, unspecified | CPT/HCPCS: 70491; 71045; 71250; 74176 ==

== ENCOUNTER → 2024-11-20 22:17 | Outpatient (BNV) | payer MEDICARE, BC, SELFPAY | PROVIDERS: Admitting Provider Student in an Organized Health Care Education/Training Program; Emergency Provider Emergency Medicine; PCP Internal Medicine; Visit Provider Hospitalist | DX: J47.1 Bronchiectasis with (acute) exacerbation (principal); J44.1 Chronic obstructive pulmonary disease with (acute) exacerbation | CPT/HCPCS: 99223 ==

== ENCOUNTER → 2024-11-20 22:17 | Outpatient (BNV) | payer MEDICARE, BC, SELFPAY | PROVIDERS: Admitting Provider Student in an Organized Health Care Education/Training Program; Emergency Provider Emergency Medicine; PCP Internal Medicine; Visit Provider Physician Assistant | DX: J47.1 Bronchiectasis with (acute) exacerbation (principal); A41.9 Sepsis, unspecified organism; R09.02 Hypoxemia; D69.6 Thrombocytopenia, unspecified; R79.89 Other specified abnormal findings of blood chemistry | CPT/HCPCS: 99223 ==

== ENCOUNTER → 2025-01-07 12:56 | Outpatient (REF) | payer MEDICARE, BC, SELFPAY ==
--- NOTE | 2025-01-07 12:57 | CA_ITS ---
Transthoracic Echocardiogram Patient (Last, First, Middle): Ace Berkowitz W Gender: Male Date of : 1945 Age: 79 Procedure Date: 01/07/2025 Procedure Type: Transthoracic Echocardiogram Location: OP Height: 172.72 cm Weight: 66.68 kg BSA: 1.79 m2 Heart Rate: bpm BP: 114 / 54 mmHg Esthetician Permanent Makeup Artist: SIMONA Referring MD: Merry Elena [employer] Symptoms: I21.4 - Non-ST elevation (NSTEMI) myocardial infarction Study Quality: Adequate Conclusions: - The left ventricular systolic function is mildly decreased. The visually estimated ejection fraction is between 45-50%. - The inferolateral wall, the basal inferior, and basal inferoseptal segments are akinetic. Findings Left Ventricle Normal left ventricular cavity size. There is normal left ventricular wall thickness. The left ventricular systolic function is mildly decreased. The visually estimated ejection fraction is between 45-50%. LV peak GLS -15%. Wall Motion Rest Echo Findings The inferolateral wall, the basal inferior, and basal inferoseptal segments are akinetic. Great Vessels Small plaque is seen in the sino tubular ridge. Venous The inferior vena cava is normal in size and collapses greater than 50% with inspiration. Prior Study Comparison Changes noted compared to prior study dated: 09/10/2024. Marginally higher LVEF. Measurements 2D Linear Measurements IVSd: 0.89 0.6-0.9/0.6-1.0 cm LVIDd: 5.04 3.9-5.3/4.2-5.9 cm LVIDd Index: 2.82 2.4-3.2/2.2-3.1 cm/m2 LVIDs: 3.78 2.0-3.6 cm LVPWd: 0.86 0.7-1.1 cm LV Mass: 193.00 67-162/88-224 g LV Mass Index: 107.82 43-95/49-115 g/m2 LVOT Diam: 2.00 3.0+(-)1.3 cm 2D Systolic Function EF 4C: 51.90 >55% EF 2C: 58.90 >55% EF BiP: 55.30 >55% LVOT LVOT Pk Kel: 0.72 LVOT Mn Kel: 0.51 LVOT VTI: 0.18 LVOT Pk Grad: 2.00 LVOT Mn Grad: 1.00 LVOT Diam: 2.00 LVOT Area: 3.14 Tricuspid Valve RA Press: 3.00 Updated in Other Vendor System with Status of Final Calvin Lopez MD electronically signed on 01/07/2025 2:42:47 PM with status of Final
--- OUTSIDE RECORDS SUMMARY | 2025-01-07 13:48 | XMS_ITS | Clinical Summary ---
Author Organization [facility] Facility Address [address] [place] [id number] Care Team Providers Care Grab Hooker Name Role Phone Mode Thompson MD Primary Care Provider Allergies No known active allergies Medications metFORMIN (GLUCOPHAGE) 500 MG tablet Take 500 mg by mouth 2 (two) times a day 06/18/2021 Active aspirin (ST INGA) 81 MG EC tablet Take 1 tablet by mouth 1 (one) time each day Active Calcium 600+D 600-200 MG-UNIT per tablet Take 1 tablet by mouth 2 (two) times a day 07/29/2021 Active Active Problems Problem Noted Date Diagnosed Date Stage 3a chronic kidney disease 09/21/2022 Simple renal cyst 08/25/2021 Family History Relation Status Comments Father Mother Social History Tobacco Use Types Packs/Day Years Used Date Smoking Tobacco: Never Smokeless Tobacco: Never Tobacco Cessation:Counseling Given: Not Answered Alcohol Use Standard Drinks/Week Comments Yes 0 (1 standard drink = 0.6 oz pure alcohol) Alcoholic Drinks/day: Occasional social drink Sex and Gender Information Value Date Recorded Sex Assigned at Not on file Legal Sex Male 4:45 PM EST Gender Identity Not on file Sexual Orientation Not on file Last Filed Vital Signs Vital Sign Reading Time Taken Comments Blood Pressure 120/80 09/21/2022 1:20 PM EDT Pulse 74 09/21/2022 1:20 PM EDT Temperature - - Respiratory Rate - - Oxygen Saturation 99% 08/25/2021 2:22 PM EDT Inhaled Oxygen Concentration - - Weight 81.8 kg (180 lb 6.4 oz) 09/21/2022 1:20 P M EDT Height 170.2 cm (5' 7 ) 07/08/2020 12:00 PM EDT Body Mass Index 28.25 07/08/2020 12:00 PM EDT Plan of Treatment Health Maintenance Due Date Last Done Comments Pneumococcal Vaccine: 65+ Ye ars (1 of 2 - PCV) 1951 Influenza Vaccine (#1) 2024 Hepatitis B Vaccine Aged Out No longe r eligible based on patient's age to complete this topic Insurance MEDICARE [facility] MEDICARE [facility] Care Teams Grab Hooker Relationship Specialty Start Date End Date Mode Thompson MD [address] [place] [address] [id number] [place] PCP - General 11/30/20
--- OUTSIDE RECORDS SUMMARY | 2025-01-07 13:48 | XMS_ITS | Patient Health Record ---
Author Organization [facility] Address [address] [place] [address] Care Team Providers Care Discharge Rn Name Role Phone Mode Thompson MD Primary Care Provider Kirstena Ezio Bagley Unavailable [phone] REASON FOR REFERRAL No Information MEDICATIONS Medication SIG (Take, Route, Frequency, Duration) Notes Start Date End Date Status metFORMIN HCl 500 MG 1 tablet with meals Orally Twice a day Active Aspirin Adult Low Dose 81 MG 1 tablet Orally Once a day A ctive SOCIAL HISTORY Sex Assigned At : Social History Observation Description Sex Assigned At Unknown PROBLEMS Problem Type ICD Code Onset Dates Problem Status W/U Status Risk SNOMED Code Notes Problem Encounter for screening for malignant neoplasm of colon (Z12.11) Active confirmed 268807919 Problem Encounter for screening for malignant neoplasm of rectum (Z12.12) Active confirmed Screening for malignant neoplasm of rectum (794160785) Problem Elevated liver enzymes (R74.8) Active confirmed 104679190 Problem 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 ANTINUCLEAR AB SCREEN (KERWIN) 07/21 Future Test Test Name Order Date COLONOSCOPY 07/29/2016 Insurance Providers Payer Name Payer Address Payer Phone Subscriber Number Group Number Insured Name Patient Relationship to Insured Coverage Start Date Coverage End Date MEDICARE OF [employer] [address] [place] [address] [id number] DWAYNE GARNER Self - patient is the insured HMO [facility] [employer] CLAIM[employer] [address] [place] [address] [phone] [id number] DWAYNE GARNER Self - patient is the insured MEDICAL (GENERAL) HISTORY Medical History History ICD Code Prostate cancer in 2008--surgery as stephen carrasco Denies [place],CVA,Lung disease,renal disease NIDDM Negative colonosc[place] [address] Elaine vargas Surgical History Surgery Date(Month/Year) Radical prosatatectomy in 2006 Tonsillectomy
== END ==
LOC: HO.CARD 12:56
PROVIDERS: PCP Internal Medicine; Visit Provider Nurse Practitioner Family
DX: I21.4 Non-ST elevation (NSTEMI) myocardial infarction (principal)
CPT/HCPCS: 93308

== ENCOUNTER → 2025-01-07 12:57 | Outpatient (BNV) | payer MEDICARE, BC, SELFPAY | PROVIDERS: PCP Internal Medicine; Visit Provider Internal Medicine | DX: I21.4 Non-ST elevation (NSTEMI) myocardial infarction (principal) | CPT/HCPCS: 93308; 93356 ==

== ENCOUNTER 2025-01-27 14:38 | Outpatient (AMB) | payer MEDICARE, BC, SELFPAY ==
[2025-01-27 15:01] VITALS: BP 112/62; PULSE 66; O2SAT 92; BMI 23.6
--- NOTE | 2025-01-27 15:01 | A.OFFVIS_ITS ---
Vital Signs 01/27/25 15:01 Height 5 ft 7 in Weight 151 lb 0.266 oz BMI 23.6 BP 112/62 Blood Pressure Location Rt brachial Position Sitting Pulse 66 Pulse Source Doppler Pulse Oximetry (%) 92 Intake Visit Reasons: copd Allergies No Known Allergies Allergy (Verified 11/20/24 18:48) HPI HPI copd: Details: 79-year-old gentleman, former 20 pack-year smoker, quit 30 years prior followed for chronic nonproductive cough and underlying pulmonary asbestosis. Patient has intermittent nonproductive cough that only response to systemic glucocorticoids with recent exacerbation. However, after recent pulse of prednisone he felt more dyspneic and required brief hospitalization [facility]. His pulmonary function test shows age-appropriate changes. Today he complains of another exacerbation of his underlying cough, though no significant sputum production. [facility] Medical History (Updated 11/30/24 @ 00:01 by Background Daemon) COPD exacerbation Atrial fibrillation with RVR Sciatica Prediabetes Asbestosis Chronic cough Surgical History (Updated 11/30/24 @ 00:01 by Background Daemon) Hx of cardiac cath Social History Household Members: Spouse, Family and Children Housing: House Do you presently have visiting nurse or other home services: No Alcohol intake: never Patient Tobacco Use Status: Never used Tobacco Advance Directives Date on File: 09/13/24 service: No Current occupational status: retired Review of Systems Const Denies daytime sleepiness, Denies excessive sweating, Denies fatigue, Denies fever(s), Denies lethargy, Denies malaise, Denies night sweats, Denies snoring and Denies weight loss Eyes Denies blurry vision and Denies itchy eyes ENT Denies nasal congestion, Denies post nasal drip, Denies sinus pain, Denies sinus pressure and Denies other ( Thrush) Card Denies chest pain, Denies pedal edema, Denies dyspnea, Denies orthopnea and Denies paroxysmal nocturnal dyspnea Resp Reports cough, Denies hemoptysis, Denies excessive phlegm production, Denies dyspnea, Denies snoring and Denies wheezing GI Denies abdominal pain and Denies heartburn Musc Denies myalgias, Denies arthralgias and Denies joint swelling Skin/Breast Denies rash Neuro Denies memory loss and Denies seizure-like activity Psych Denies abnormal sleep pattern, Denies anxiety and Denies memory loss Endo Denies excessive sweating, Denies fatigue and Denies heat intolerance Ari/Lymph Denies easy bruising Aller/Immun Denies itchy eyes, Denies seasonal rhinorrhea and Denies wheezing Physical Exam Vital Signs: Last Vital Signs Pulse 66 01/27/25 15:01 BP 112/62 01/27/25 15:01 Pulse Ox 92 01/27/25 15:01 BMI result Body Mass Index 23.6 Const General: no acute distress and alert Nutritional Appearance: not obese Orientation/consciousness: Other orientation findings ( oriented) HEENT Head: Yes atraumatic Eyes General: appearance normal, both eyes and all related structures Sclerae: sclerae normal EOM: EOMs intact bilaterally Neck Neck: Yes supple Lymphatic: no lymphadenopathy noted Resp Effort & Inspection: normal respiratory effort and no use of accessory muscles Auscultation: clear to auscultation bilaterally Cardio Rate: regular rate Rhythm: regular rhythm Heart sounds: no gallops, no murmurs and no rubs Skin General skin exam: other ( warm) Extrem General: No clubbing, No cyanosis and No edema Assessment & Plan Assessment & Plan (1) Bronchiectasis: Code(s): J47.9 - Bronchiectasis, uncomplicated Category: Medical (2) Chronic cough: Code(s): R05 - Cough Category: Medical Plan Now with worsening cough, unclear if hypoxemia episode was related to prior prednisone pulse, will try on high-dose inhaled corticosteroids, if not improving, will consider lower dose prednisone pulse. Medications: New fluticasone furoate 200 mcg/actuation (Arnuity Ellipta) 1 inh inhalation DAILY 1 ea 6RF Coding Level of Care Code Est Pt Level 4 (66098) Diagnoses Bronchiectasis J47.9 Chronic cough R05
--- OUTSIDE RECORDS SUMMARY | 2025-01-27 16:45 | XMS_ITS | Clinical Summary ---
Author Organization [facility] Facility Address [address] [place] [address] Care Team Providers Care Senior Systems Engineer Name Role Phone Mode Thompson MD Primary Care Provider [phone] Allergies No known active allergies Medications metFORMIN [...] age to complete this topic Insurance MEDICARE [facility] MEDICARE [facility] Care Teams Senior Systems Engineer Relationship Specialty Start Date End Date Mode Thompson MD [address] [place] [address] [id number] [place] PCP - General 11/30/20
--- OUTSIDE RECORDS SUMMARY | 2025-01-27 16:45 | XMS_ITS | Patient Health Record ---
Author Organization [facility] Address [address] [place] [address] Care Team Providers Care Enrollment Processor Name Role Phone Mode Thompson MD Primary Care Provider Kirstena Ezio Bagley Unavailable [phone] Reason For Referral No Information Medications Medication SIG (Take, Route, Frequency, Duration) Notes Start Date End Date Status metFORMIN HCl 500 MG 1 tablet with meals Orally Twice a day Active Aspirin Adult Low Dose 81 MG 1 tablet Orally Once a day A ctive Problems Problem Type SNOMED Code ICD Code Onset Dates Problem Status W/U Status Risk Notes Problem 882313247 Encounter for screening for malignant neoplasm of colon (Z12.11) Active confirmed Problem Screening for malignant neoplasm of rectum (104349019) Encounter for screening for malignant neoplasm of rectum (Z12.12) Active confirmed Problem 686090125 Elevated liver enzymes (R74.8) Active confirmed Problem 08758611 Iron excess (E83.19) Active confirmed Plan Of Treatment Pending Test Test Name Order Date [id number] (A1A) 08/07/2016 MITOCHONDRIAL AB 08/07/2016 SMOOTH MUSCLE ANTIBODIES 08/07/2016 HEMOCHROMATOSIS (C282Y) 08/07/2016 FLUOR. ANTINUCLEAR AB SCREEN (KERWIN) 07/21 Future Test Test Name Order Date COLONOSCOPY 07/29/2016 Insurance Providers Payer Name Payer Address Payer Phone Subscriber Number Group Number Insured Name Patient Relationship to Insured Coverage Start Date Coverage End Date MEDICARE OF [place] [address] [place] [address] [id number] DWAYNE GARNER Self - patient is the insured HMO BLUE BCBS PROFESSIONAL CLAIMS [address] [place] [address] [phone] [id number] 500 DWAYNE GARNER Self - patient is the insured Medical (General) History Medical History History ICD Code Prostate cancer in 2008--surgery as stephen w Denies [place],CVA,Lung disease,renal disease NIDDM [place]osc[place] [address] Elaine vargas Surgical History Surgery Date(Month/Year) Radical prosatatectomy in 2006 Tonsillectomy
== END 2025-01-27 15:22 | disposition home or self-care (01) ==
PROVIDERS: PCP Internal Medicine; Visit Provider Internal Medicine Pulmonary Disease
DX: J47.9 Bronchiectasis, uncomplicated (principal); R05.9 Cough, unspecified
CPT/HCPCS: 99214

== ENCOUNTER → 2025-01-27 14:38 | Outpatient (BNVA) | payer MEDICARE, BC, SELFPAY | PROVIDERS: PCP Internal Medicine; Visit Provider Internal Medicine Pulmonary Disease | DX: J47.9 Bronchiectasis, uncomplicated (principal); R05.3 Chronic cough | CPT/HCPCS: 99212 ==

== ENCOUNTER 2025-01-30 14:42 | Outpatient (REF) | payer MEDICARE, BC, SELFPAY ==
[2025-01-30 17:37] LABS: Anion Gap 13 (12-20); Blood Urea Nitrogen 24 mg/dL (9-16); Carbon Dioxide 22 mmol/L (22-29); Chloride 115 mmol/L (96-108); Cholesterol 58 mg/dL (<200); Estimated Glomerular Filt Rate 47; Glucose Random 107 mg/dL (60-115); HDL Cholesterol 14 mg/dL (>40); LDL Cholesterol Calculated 20 mg/dL (<100); Potassium 4.6 mmol/L (3.3-5.1); Sodium 145 mmol/L (135-145); Triglycerides 121 mg/dL (<150)
[2025-01-30 17:39] LABS: B Type Natriuretic Peptide 1242 pg/mL (<100)
--- OUTSIDE RECORDS SUMMARY | 2025-01-30 19:09 | XMS_ITS | Clinical Summary ---
Author Organization [facility] Facility Address [address] [place] [address] Care Team Providers Care Self Pay Representative Name Role Phone Mode Thompson MD Primary Care Provider [phone] Allergies No known active allergies Medications metFORMIN [...] age to complete this topic Insurance MEDICARE [facility] MEDICARE [facility] Care Teams Self Pay Representative Relationship Specialty Start Date End Date Mode Thompson MD [address] [place] [address] DR[address] [place] PCP - General 11/30/20
== END 2025-01-30 14:43 | disposition home or self-care (01) ==
LOC: HO.LAB 14:42
PROVIDERS: PCP Internal Medicine; Visit Provider Nurse Practitioner Family
DX: I48.91 Unspecified atrial fibrillation (principal); R06.02 Shortness of breath; I25.2 Old myocardial infarction; Z79.01 Long term (current) use of anticoagulants; Z95.5 Presence of coronary angioplasty implant and graft
CPT/HCPCS: 36415; 80048; 80061; 83880; 93005; 99212

== ENCOUNTER 2025-01-30 14:42 | Outpatient (AMB) | payer MEDICARE, BC, SELFPAY ==
[2025-01-30 14:47] VITALS: BP 138/60; PULSE 64; BMI 23.8
--- NOTE | 2025-01-30 14:47 | MHC.OFFVIS ---
Vital Signs 01/30/25 14:47 Height 5 ft 7 in Weight 151 lb 10.848 oz BMI 23.8 BP 138/60 Blood Pressure Location Lt brachial Position Sitting Pulse 64 Pulse Source Pulse Oximeter Intake Visit Reasons: 4m follow up Rn Transport Required: No Allergies No Known Allergies Allergy (Verified 01/30/25 14:50) Medication List - Last Reconciled 01/30/25 by Merry Elena, PAPER AND PULP MILL OPERATOR-C apixaban (Eliquis) 2.5 mg PO BID atorvastatin 40 mg PO BEDTIME clopidogrel 75 mg PO DAILY fluticasone furoate 200 mcg/actuation (Arnuity Ellipta) 1 inh inhalation DAILY metformin 1,000 mg PO BID metoprolol tartrate 25 mg See Protocol PO BID HPI HPI 4m follow up: Details: Ace is an 79-year-old male with past medical history of asbestosis/interstitial lung disease, diabetes who presented to [facility] 08/2024 with symptoms of viral illness, sepsis. On EKG he was found to have AFib RVR and was treated with IV metoprolol and put on p.o. metoprolol. His troponin levels were elevated and he was treated for NSTEMI with heparin drip. Echocardiogram showed EF 40-45% with regional wall motion abnormality. When his viral illness improved he was transferred to [facility] for cardiac cath and received 2 coronary stents. He was readmitted 11/2024 with hypoxic respiratory failure without known cardiac issues. Today he reports that he has been doing well since his last hospital discharge. He saw his salesperson pets and pet supplies earlier this week. He does have some chronic shortness of breath related to his interstitial lung disease. He tells me in the last few days he has notice some increased shortness of breath, especially when he lays down at night. He did not mention this to the salesperson pets and pet supplies since he was coming to our office today. He says he had some shortness of breath when walking into the office today. During this visit his breathing appears unlabored. He denies any chest discomfort at rest or with activity. He has no PND or edema. No heart palpitations, lightheadedness, presyncope, syncope, falls. He has been doing only light activity. He is taking all meds as directed. No bleeding issues reported. Son is present. [facility] Medical History COPD exacerbation Atrial fibrillation with RVR Sciatica Prediabetes Asbestosis Chronic cough Surgical History Hx of cardiac cath Social History Household Members: Spouse, Family and Children Housing: House Do you presently have visiting nurse or other home services: No Alcohol intake: never Patient Tobacco Use Status: Never used Tobacco Advance Directives Date on File: 09/13/24 service: No Current occupational status: retired Review of Systems Const All systems reviewed & are unremarkable except as noted in HPI and below ENT Denies dizziness Card Denies chest pain, Denies chest pain at rest, Denies chest pain with activity, Denies rapid heart rate, Denies pedal edema, Denies edema, Denies leg edema, Denies lightheadedness, Denies palpitations, Reports dyspnea, Reports dyspnea on exertion and Reports orthopnea Resp Denies cough, Reports dyspnea and Reports dyspnea on exertion GI Denies hematochezia and Denies change in stool character Musc Denies abnormal gait, Denies limited range of motion, Denies muscle cramps, Denies muscle weakness, Denies numbness, Denies radiating pain into limb, Denies stiffness and Denies tingling Neuro Denies abnormal gait, Denies dizziness, Denies numbness and Denies tingling Endo Denies palpitations Physical Exam Vital Signs: Last Vital Signs Pulse 64 01/30/25 14:47 BP 138/60 01/30/25 14:47 BMI result Body Mass Index 23.8 Const General: cooperative, healthy appearing, comfortable and no acute distress Orientation/consciousness: patient oriented x3 Neck Neck: Yes normal visual inspection and Yes no JVD Resp Effort & Inspection: normal respiratory effort Auscultation: clear to auscultation bilaterally, no rales, no rhonchi and no wheezes Cardio Rate: regular rate Rhythm: regular rhythm Heart sounds: S1 normal heart sound present, S2 normal heart sound present, no murmurs and no rubs Neuro General: patient oriented x3 Extrem General: Yes normal to inspection, No no pedal edema and No calf tenderness Psych Appearance: grossly normal Mental Status: mental status grossly normal Speech and movement: Normal speech and movement present Office Procedures EKG Details: today, read by me, sinus rhythm with PACs, nonspecific ST abnormality, rate 64 [id number]-[id number], Complete Assessment & Plan Assessment & Plan (1) NSTEMI (non-ST elevated myocardial infarction): Code(s): I21.4 - Non-ST elevation (NSTEMI) myocardial infarction Category: Medical Plan: NSTEMI in the setting of viral illness 08/2024. Also found to have AFib RVR at that time. Echocardiogram showed EF 40-45%, anterior lateral hypokinetic, basal inferior akinetic. He was initially managed medically and once clinically improved he was transferred to [facility] where he underwent cardiac catheterization which showed significant proximal left circumflex and proximal RCA stenosis. A RENE was placed in each vessel. follow-up echocardiogram done 01/07/2025 showed EF 45-50%, inferiorwall motion abnormality remains present. Today he reports some shortness of breath, especially when laying down in the last few days. He does not appear fluid overloaded on exam. EKG today shows sinus rhythm with PAC, nonspecific ST abnormality, rate 64. Will check labs today including BNP. Will check Holter monitor to see if he is experiencing PAF as the cause of his shortness of breath. If his symptom persists he may need a nuclear stress test. He is not on aspirin as he is on Eliquis. Continue Plavix uninterrupted for for 1 year Post stents. Continue atorvastatin with ideal LDL goal less than 70. Will check lipid profile. Continue metoprolol. Signs and symptoms of angina reviewed with him. Emergency care if needed for symptoms. Cardiology follow-up One month, sooner if needed. (2) S/P cardiac cath: Comment: 09/13/2024, left main 30% stenosis, mid LAD 50% stenosis, left circumflex proximal 80% stenosis OM1 95% stenosis, RENE left circumflex into OM1, with abrupt vessel closure while wiring and had angioplasty of OM1, RCA proximal 90% stenosis, RENE placed Code(s): Z98.890 - Other specified postprocedural states Category: Surgical Plan: Right radial catheterization site well healed (3) Atrial fibrillation with RVR: Code(s): I48.91 - Unspecified atrial fibrillation Category: Medical Plan: New finding of atrial fibrillation at time of [facility] admission 09/10/2024. He was initially treated with heart rate control and started on anticoagulation. At follow-up visit EKG confirmed sinus rhythm with first-degree AV block. He is denying heart palpitations. His EKG today is showing sinus rhythm. Will continue on metoprolol for heart rate control and Eliquis for anticoagulation. (4) Stented coronary artery: Comment: RENE to the proximal left circumflex and proximal RCA 09/13/2024 Code(s): Z95.5 - Presence of coronary angioplasty implant and graft Category: Surgical Plan: As above (5) Hospital discharge follow-up: Code(s): Z09 - Encounter for follow-up examination after completed treatment for conditions other than malignant neoplasm Category: Medical Plan: As above (6) Shortness of breath: Code(s): R06.02 - Shortness of breath Category: Medical Plan Time spent on chart review, documentation, interview and assessment Orders: Orders B Type Natriuretic Peptide Today R06.02 - Shortness of breath Basic Metabolic Panel Today R06.02 - Shortness of breath ECG 3 day holter monitor Today I48.91 - Unspecified atrial fibrillation Coding Level of Care Code Est Pt Level 4 (59544) Complex EM visit Add On G2211 Diagnoses NSTEMI (non-ST elevated myocardial infarction) I21.4 S/P cardiac cath Z98.890 Atrial fibrillation with RVR I48.91 Stented coronary artery Z95.5 Hospital discharge follow-up Z09 Shortness of breath R06.02 CPT Codes EKG - CPT: 87386-[id number], Complete ([id number]) Time Spent (min) 36
--- OUTSIDE RECORDS SUMMARY | 2025-01-30 18:31 | XMS_ITS | Patient Health Record ---
Author Organization [facility] Address [address] [place] [address] Care Team Providers Care Pairer Odds Name Role Phone Mode Thompson MD Primary Care Provider Kirstena Ezio Bagley Unavailable [phone] Reason For Referral No Information Medications Medication SIG (Take, Route, Frequency, Duration) Notes Start Date End Date Status metFORMIN HCl 500 MG 1 tablet with meals Orally Twice a day Active Aspirin Adult Low Dose 81 MG 1 tablet Orally Once a day A ctive Problems Problem Type SNOMED Code ICD Code Onset Dates Problem Status W/U Status Risk Notes Problem 329450259 Encounter for screening for malignant neoplasm of colon (Z12.11) Active confirmed Problem Screening for malignant neoplasm of rectum (601392566) Encounter for screening for malignant neoplasm of rectum (Z12.12) Active confirmed Problem 491014945 Elevated liver enzymes (R74.8) Active confirmed Problem 54279181 Iron excess (E83.19) Active confirmed Plan Of Treatment Pending Test Test Name Order Date [id number] (A1A) 08/07/2016 MITOCHONDRIAL AB 08/07/2016 SMOOTH MUSCLE ANTIBODIES 08/07/2016 HEMOCHROMATOSIS (C282Y) 08/07/2016 FLUOR. ANTINUCLEAR AB SCREEN (KERWIN) 07/21 Future Test Test Name Order Date COLONOSCOPY 07/29/2016 Insurance Providers Payer Name Payer Address Payer Phone Subscriber Number Group Number Insured Name Patient Relationship to Insured Coverage Start Date Coverage End Date MED[place]ARE [place] [address] [place] [address] [id number] DWAYNE GARNER Self - patient is the insured HMO BLUE BCBS PROFESSIONAL CLAIMS [address] [place] [address] [phone] [id number] 500 DWAYNE GRANER Self - patient is the insured Medical (General) History Medical History History ICD Code Prostate cancer in 2008--surgery as stephen w Denies [place],CVA,Lung disease,renal disease NIDDM [place] [address] Elaine vargas Surgical History Surgery Date(Month/Year) Radical prosatatectomy in 2006 Tonsillectomy
--- OUTSIDE RECORDS SUMMARY | 2025-01-30 18:31 | XMS_ITS | Clinical Summary ---
Author Organization [facility] Facility Address [address] [place] [address] Care Team Providers Care Continuous Wave Operator Name Role Phone Mode Thompson MD Primary Care Provider [phone] Allergies No known active allergies Medications metFORMIN [...] age to complete this topic Insurance MEDICARE [facility] MEDICARE [facility] Care Teams Continuous Wave Operator Relationship Specialty Start Date End Date Mode Thompson MD [address] [place] [address] DR[address] [place] PCP - General 11/30/20
== END 2025-01-30 15:42 | disposition home or self-care (01) ==
LOC: HO.HCS 14:43
PROVIDERS: PCP Internal Medicine; Visit Provider Nurse Practitioner Family
DX: I21.4 Non-ST elevation (NSTEMI) myocardial infarction (principal); Z98.890 Other specified postprocedural states; I48.91 Unspecified atrial fibrillation; Z95.5 Presence of coronary angioplasty implant and graft; Z09 Encounter for follow-up examination after completed treatment for conditions other than malignant neoplasm; R06.02 Shortness of breath
CPT/HCPCS: 93010; 99214; G2211

== ENCOUNTER → 2025-02-13 11:22 | Outpatient (REF) | payer MEDICARE, BC, SELFPAY ==
--- OUTSIDE RECORDS SUMMARY | 2025-02-13 15:02 | XMS_ITS | Patient Health Record ---
Author Organization [facility] Address [address] [place] [address] Care Team Providers Care Lathe Setup Operator Name Role Phone Mode Thompson MD Primary Care Provider Kirstena Ezio Bagley Unavailable [phone] Reason For Referral No Information Medications Medication SIG (Take, Route, Frequency, Duration) Notes Start Date End Date Status metFORMIN HCl 500 MG 1 tablet with meals Orally Twice a day Active Aspirin Adult Low Dose 81 MG 1 tablet Orally Once a day A ctive Problems Problem Type SNOMED Code ICD Code Onset Dates Problem Status W/U Status Risk Notes Problem 474086477 Encounter for screening for malignant neoplasm of colon (Z12.11) Active confirmed Problem Screening for malignant neoplasm of rectum (220225857) Encounter for screening for malignant neoplasm of rectum (Z12.12) Active confirmed Problem 131382354 Elevated liver enzymes (R74.8) Active confirmed Problem 44234433 Iron excess (E83.19) Active confirmed Plan Of Treatment Pending Test Test Name Order Date [id number] (A1A) 08/07/2016 MITOCHONDRIAL AB 08/07/2016 SMOOTH MUSCLE ANTIBODIES 08/07/2016 HEMOCHROMATOSIS (C282Y) 08/07/2016 FLUOR. ANTINUCLEAR AB SCREEN (KERWIN) 07/21 Future Test Test Name Order Date COLONOSCOPY 07/29/2016 Insurance Providers Payer Name Payer Address Payer Phone Subscriber Number Group Number Insured Name Patient Relationship to Insured Coverage Start Date Coverage End Date [place]ARE OF [place] [address] [place] [address] [id number] DWAYNE GARNER Self - patient is the insured HMO BLUE BCBS PROFESSIONAL CLAIMS [address] [place] [address] [phone] [id number] 500 DWAYNE GARNER Self - patient is the insured Medical (General) History Medical History History ICD Code Prostate cancer in 2008--surgery as stephen w Denies [place],CVA,Lung disease,renal disease NIDDM [place] colonosc[place] [address] Elaine vargas Surgical History Surgery Date(Month/Year) Radical prosatatectomy in 2006 Tonsillectomy
--- OUTSIDE RECORDS SUMMARY | 2025-02-13 15:02 | XMS_ITS | Clinical Summary ---
Author Organization [facility] Facility Address [address] [place] [address] Care Team Providers Care Channeler Insole Name Role Phone Mode Thompson MD Primary Care Provider [phone] Allergies No known active allergies Medications metFORMIN [...] age to complete this topic Insurance MEDICARE [facility] MEDICARE [facility] Care Teams Channeler Insole Relationship Specialty Start Date End Date Mode Thompson MD [address] [place] [address] DR[address] [place] PCP - General 11/30/20
== END ==
LOC: HO.CARD 11:22
PROVIDERS: Visit Provider Nurse Practitioner Family
DX: I48.91 Unspecified atrial fibrillation (principal)
CPT/HCPCS: 93242

== ENCOUNTER → 2025-02-13 11:25 | Outpatient (BNV) | payer MEDICARE, BC, SELFPAY | PROVIDERS: Visit Provider Internal Medicine | DX: I47.10 Supraventricular tachycardia, unspecified (principal); I49.3 Ventricular premature depolarization | CPT/HCPCS: 93244 ==

== ENCOUNTER 2025-03-17 14:41 | Outpatient (AMB) | payer MEDICARE, BC, SELFPAY ==
--- NOTE | 2025-03-17 14:47 | A.OFFVIS_ITS ---
Vital Signs 03/17/25 14:48 Height 5 ft 7 in Weight 147 lb 4.301 oz BMI 23.1 BP 90/62 Blood Pressure Location Lt brachial Position Sitting Pulse 74 Pulse Source Pulse Oximeter Intake Visit Reasons: 4-6 wk follow up Chemical Processing Equipment Repairer Required: No Literacy Coach: Literacy Coach Present Allergies No Known Allergies Allergy (Verified 03/17/25 14:51) Medication List - Last Reconciled 03/17/25 by Merry Elena NP-C apixaban (Eliquis) 2.5 mg PO BID atorvastatin 40 mg PO BEDTIME clopidogrel 75 mg PO DAILY fluticasone furoate 200 mcg/actuation (Arnuity Ellipta) 1 inh inhalation DAILY furosemide 20 mg orally 3 times weekly ( Mon, Wed, Fri); ( He does Not need refill at this time, just update in system) metformin 1,000 mg PO BID metoprolol tartrate 25 mg See Protocol PO BID HPI HPI 4-6 wk follow up: Details: Ace is an 79-year-old male with past medical history of asbestosis/interstitial lung disease, diabetes who presented to [facility] 08/2024 with symptoms of viral illness, sepsis. On EKG he was found to have AFib RVR and was treated with IV metoprolol and put on p.o. metoprolol. His troponin levels were elevated and he was treated for NSTEMI with heparin drip. Echocardiogram showed EF 40-45% with regional wall motion abnormality. When his viral illness improved he was transferred to [facility] for cardiac cath and received 2 coronary stents. He was readmitted 11/2024 with hypoxic respiratory failure without known cardiac issues. On last visit he reported shortness of breath, orthopnea. His BNP was elevated and he was started on Lasix. Today he reports that his breathing is back to his baseline. He denies PND, orthopnea or edema. He does have some chronic shortness of breath related to his interstitial lung disease. He denies any chest discomfort at rest or with activity. He has no PND or edema. No heart palpitations, lightheadedness, presyncope, syncope, falls. He has been doing only light activity. He is taking all meds as directed. No bleeding issues reported. Son is present. [facility] Medical History COPD exacerbation Atrial fibrillation with RVR Sciatica Prediabetes Asbestosis Chronic cough Surgical History Hx of cardiac cath Social History Household Members: Spouse, Family and Children Housing: House Do you presently have visiting nurse or other home services: No Alcohol intake: never Patient Tobacco Use Status: Never used Tobacco Advance Directives Date on File: 09/13/24 service: No Current occupational status: retired Review of Systems Const Details: ambulates with cane All systems reviewed & are unremarkable except as noted in HPI and below ENT Denies dizziness Card Denies chest pain, Denies chest pain at rest, Denies chest pain with activity, Denies rapid heart rate, Denies pedal edema, Denies edema, Denies leg edema, Denies lightheadedness, Denies palpitations, Denies dyspnea, Denies dyspnea on exertion and Denies orthopnea Resp Denies cough, Denies dyspnea and Denies dyspnea on exertion GI Denies hematochezia and Denies change in stool character Musc Denies abnormal gait, Denies limited range of motion, Denies muscle cramps, Denies muscle weakness, Denies numbness, Denies radiating pain into limb, Denies stiffness and Denies tingling Neuro Denies abnormal gait, Denies dizziness, Denies numbness and Denies tingling Endo Denies palpitations Physical Exam Vital Signs: Last Vital Signs Pulse 74 03/17/25 14:48 BP 90/62 03/17/25 14:48 BMI result Body Mass Index 23.1 Const General: cooperative, healthy appearing, comfortable and no acute distress Orientation/consciousness: patient oriented x3 Neck Neck: Yes normal visual inspection and Yes no JVD Resp Effort & Inspection: normal respiratory effort Auscultation: clear to auscultation bilaterally, rales (right base), no rhonchi and no wheezes Cardio Rate: regular rate Rhythm: regular rhythm Heart sounds: S1 normal heart sound present, S2 normal heart sound present, no murmurs and no rubs Neuro General: patient oriented x3 Extrem General: Yes normal to inspection, No no pedal edema and No calf tenderness Psych Appearance: grossly normal Mental Status: mental status grossly normal Speech and movement: Normal speech and movement present Assessment & Plan Assessment & Plan (1) NSTEMI (non-ST elevated myocardial infarction): Code(s): I21.4 - Non-ST elevation (NSTEMI) myocardial infarction Category: Medical Plan: NSTEMI in the setting of viral illness 08/2024. Also found to have AFib RVR at that time. Echocardiogram showed EF 40-45%, anterior lateral hypokinetic, basal inferior akinetic. Cardiac catheterization showed significant proximal left circumflex and proximal RCA stenosis. A RENE was placed in each vessel. Repeat echocardiogram done 01/07/2025 showed EF 45-50%, inferiorwall motion abnormality remains present. Doing well with no anginal symptoms. He is not on aspirin as he is on Eliquis. Continue Plavix uninterrupted for for 1 year Post stents. Continue atorvastatin with ideal LDL goal less than 70. Continue metoprolol. Signs and symptoms of angina reviewed with him. Cardiology follow-up 3 months, sooner if needed. (2) Heart failure with reduced ejection fraction: Code(s): I50.20 - Unspecified systolic (congestive) heart failure Category: Medical Plan: On last visit he reported increased shortness of breath and orthopnea. BNP elevated at 1242. He was started on Lasix, then dose reduced due to elevation in creatinine. Currently euvolemic. Will recheck labs. (3) S/P cardiac cath: Comment: 09/13/2024, left main 30% stenosis, mid LAD 50% stenosis, left circumflex proximal 80% stenosis OM1 95% stenosis, RENE left circumflex into OM1, with abrupt vessel closure while wiring and had angioplasty of OM1, RCA proximal 90% stenosis, RENE placed Code(s): Z98.890 - Other specified postprocedural states Category: Medical (4) Atrial fibrillation with RVR: Code(s): I48.91 - Unspecified atrial fibrillation Category: Medical Plan: New finding of atrial fibrillation at time of [facility] admission 09/10/2024 that is currently suppressed with rate slowing agents. EKG done last visit showed normal sinus rhythm. Holter monitor done 02/13/2025 for 3 days shows sinus rhythm, average heart rate 68 beats per minute, SVE 1.6% of time, VE 1% of time, no atrial fibrillation. Clinically in sinus rhythm today. Continue to pursue rhythm control. Continue metoprolol for heart rate control and Eliquis for anticoagulation. (5) Stented coronary artery: Comment: RENE to the proximal left circumflex and proximal RCA 09/13/2024 Code(s): Z95.5 - Presence of coronary angioplasty implant and graft Category: Medical Plan: As above (6) Shortness of breath: Code(s): R06.02 - Shortness of breath Category: Medical Plan: History of interstitial lung disease, chronic shortness of breath with exertion. His breathing is at baseline at this time. He follows with pulmonology. Plan Time spent on chart review, documentation, interview and assessment Medications: Changed From furosemide 20 mg orally 3 times weekly ( Mon, Mon, Mon); ( He does Not need refill at this time, just update in system) 36 tabs 3RF To furosemide 20 mg orally 3 times weekly ( Mon, Mon, Mon); 36 tabs 3RF Coding Level of Care Code Est Pt Level 3 (70458) Complex EM visit Add On G2211 Diagnoses NSTEMI (non-ST elevated myocardial infarction) I21.4 Heart failure with reduced ejection fraction I50.20 S/P cardiac cath Z98.890 Atrial fibrillation with RVR I48.91 Stented coronary artery Z95.5 Shortness of breath R06.02 Time Spent (min) 24
[2025-03-17 14:48] VITALS: BP 90/62; PULSE 74; BMI 23.1
--- OUTSIDE RECORDS SUMMARY | 2025-03-17 17:32 | XMS_ITS | Clinical Summary ---
Author Organization [facility] Facility Address [address] [place] [id number] Care Team Providers Care Senior Staff Psychologist Name Role Phone Mode Thompson MD Primary Care Provider [phone] Allergies No known active allergies Medications metFORMIN [...] Due Date Last Done Comments Pneumococcal Vaccine: 50+ Ye ars (1 of 2 - PCV) 1962 Influenza Vaccine (Season Ended) 2025 Hepatitis B Vaccine Aged Out No longe r eligible based on patient's age to complete this topic Insurance Medicare [facility] Medicare [facility] Care Teams Senior Staff Psychologist Relationship Specialty Start Date End Date Mode Thompson MD [address] [place] [address] [id number] [place] PCP - General 11/30/20
== END 2025-03-17 15:31 | disposition home or self-care (01) ==
LOC: HO.HCS 14:41
PROVIDERS: PCP Internal Medicine; Visit Provider Nurse Practitioner Family
DX: I21.4 Non-ST elevation (NSTEMI) myocardial infarction (principal); I50.20 Unspecified systolic (congestive) heart failure; Z98.890 Other specified postprocedural states; I48.91 Unspecified atrial fibrillation; Z95.5 Presence of coronary angioplasty implant and graft; R06.02 Shortness of breath
CPT/HCPCS: 99213; G2211

== ENCOUNTER → 2025-03-17 14:41 | Outpatient (BNVA) | payer MEDICARE, BC, SELFPAY | PROVIDERS: PCP Internal Medicine; Visit Provider Nurse Practitioner Family | DX: I21.4 Non-ST elevation (NSTEMI) myocardial infarction (principal); I50.20 Unspecified systolic (congestive) heart failure; I48.91 Unspecified atrial fibrillation; R06.02 Shortness of breath; Z95.5 Presence of coronary angioplasty implant and graft; Z98.890 Other specified postprocedural states | CPT/HCPCS: 99212 ==

== ENCOUNTER 2025-03-31 13:30 | Outpatient (RCR) | payer MEDICARE, BC, SELFPAY ==
[2024-12-24 14:17] LABS: Glucose, Whole Blood 103 mg/dL (60-115)
[2025-01-15 13:36] LABS: Glucose, Whole Blood 122 mg/dL (60-115)
[2025-01-17 13:36] LABS: Glucose, Whole Blood 95 mg/dL (60-115)
[2025-01-29 13:56] LABS: Glucose, Whole Blood 111 mg/dL (60-115)
[2025-02-07 16:51] LABS: B Type Natriuretic Peptide 499 pg/mL (<100)
[2025-02-07 17:21] LABS: Anion Gap 13 (12-20); Blood Urea Nitrogen 33 mg/dL (9-16); Calcium 9.3 mg/dL (8.4-10.2); Carbon Dioxide 25 mmol/L (22-29); Chloride 108 mmol/L (96-108); Estimated Glomerular Filt Rate 39; Glucose Random 116 mg/dL (60-115); Potassium 4.8 mmol/L (3.3-5.1); Sodium 141 mmol/L (135-145)
[2025-03-24 16:02] LABS: B Type Natriuretic Peptide 677 pg/mL (<100)
[2025-03-24 16:12] LABS: Anion Gap 15 (12-20); Blood Urea Nitrogen 30 mg/dL (9-16); Carbon Dioxide 22 mmol/L (22-29); Chloride 109 mmol/L (96-108); Estimated Glomerular Filt Rate 35; Glucose Random 124 mg/dL (60-115); Potassium 4.5 mmol/L (3.3-5.1); Sodium 141 mmol/L (135-145)
== END 2025-04-02 06:08 | disposition home or self-care (01) ==
LOC: HO.CR 13:30
PROVIDERS: PCP Internal Medicine; Visit Provider Nurse Practitioner Family
DX: I21.4 Non-ST elevation (NSTEMI) myocardial infarction (principal); Z95.5 Presence of coronary angioplasty implant and graft; Z98.890 Other specified postprocedural states
CPT/HCPCS: 36415; 80048; 82947; 83880; 93798

== ENCOUNTER 2025-04-14 11:46 | Emergency (ER) | payer MEDICARE, BC, SELFPAY ==
--- NOTE | ~2025-04-14 | CT_ITS ---
CLINICAL HISTORY: RLQ pain, WBC 60K CT abdomen and pelvis without contrast Comparison: None Findings: Right pleural plaques with minimal calcification, unchanged. Right lung base honeycombing, similar to the prior study. Trace left pleural fluid, also present on the prior study. Unremarkable gallbladder. No bladder stone. The bladder is underdistended thick-walled. 3 mm stone in the mid to distal right ureter causing mild hydroureteronephrosis. No left hydronephrosis. Question punctate right nephrolithiasis. Lobular contour of the liver capsule may indicate cirrhosis, similar to the prior study. Splenomegaly, measuring 15.5 cm in craniocaudal dimension, previously 14.9 cm. The other solid organs are unremarkable. No bowel wall thickening or dilation. A normal appendix is identified. No aneurysm. Severe calcified atherosclerotic disease. No lymphadenopathy. Small pelvic ascites, also present on the prior study. No acute osseous abnormality. Unchanged mild height loss T11. Impression: 3 mm stone in the mid to distal right ureter causing mild hydroureteronephrosis. Underdistended thick-walled bladder. Correlate with urinalysis to exclude cystitis. This document has been electronically signed by: Nanci Cade MD on 04/14/2025 15:20:21
--- NOTE | ~2025-04-14 | XR_ITS ---
CLINICAL HISTORY: right sided crackles Chest Radiographs, 2 views Comparison: CT/SR - CT CHEST WO IV CON - 11/20/24 19:59 EST CR - XR CHEST 1V - 11/20/24 18:57 EST CR/SR - XR CHEST 2V - 09/09/24 16:38 EDT Findings: No cardiomegaly. Normal mediastinal contours. No pneumothorax. Unchanged opacity throughout the right lung. Blunting of the left costophrenic angle. Normal upper abdomen. No acute fracture. Impression: Unchanged opacity throughout the right lung likely corresponds to pleural plaques seen on the prior CT. Acute pathology is considered less likely, although pneumonia cannot be entirely excluded. Blunting of the left costophrenic angle may indicate small left pleural effusion, also present on the prior studies. This document has been electronically signed by: Nanci Cade MD on 04/14/2025 14:51:25
--- NOTE | 2025-04-14 11:48 | ED_ITS ---
HPI - General Adult General Chief complaint: Abdominal Pain Stated complaint: abd pain Time Seen by Provider: 04/14/25 13:25 History of Present Illness ED Provider: John PRATHER narrative: The patient is an 80-year-old male who was last hospitalized at this hospital 5 months ago. At that time he has been hospitalized for shortness of breath and an exacerbation of his COPD and bronchiectasis. During that hospitalization he was noticed to have significantly elevated white blood counts but this was attributed to recent steroid use. He has not had any follow up of his white blood counts since discharge. The patient has had some interim chemistries that showed worsening renal function. The patient believes this was felt to possibly be a result of his furosemide use. The patient comes to the emergency room today because he had pain in his right lower abdomen that he has never had before. He says the pain was initially quite severe but then got better for awhile but then returned and at that point he felt he should come to the emergency room for evaluation. The pain has continued to wax and wane. At the time that I was interviewing him he was not having significant discomfort. He has had no fever your vomiting. Related Data Previous Rx's ?Medication ?Instructions ?Recorded apixaban 2.5 mg tablet (Eliquis) 2.5 mg PO BID #180 tabs 12/05/24 atorvastatin 40 mg tablet 40 mg PO BEDTIME #90 tabs 12/05/24 clopidogrel 75 mg tablet 75 mg PO DAILY #90 tabs 12/05/24 metoprolol tartrate 25 mg tablet 25 mg PO BID #180 tabs 12/05/24 fluticasone furoate 200 1 inh inhalation DAILY #1 ea 01/27/25 mcg/actuation blister powder for inhalation (Arnuity Ellipta) furosemide 20 mg tablet 20 mg PO .COMPLEX PRN orthopnea or 03/25/25 edema #30 tabs metformin 1,000 mg tablet 1,000 mg PO BID #180 tabs 04/08/25 acetaminophen 500 mg capsule 1,000 mg (2 x 500 mg) PO Q8H PRN 04/14/25 fever or pain #14 caps morphine 15 mg immediate release 15 mg PO Q6H PRN pain #14 tabs 04/14/25 tablet ondansetron 4 mg disintegrating 4 mg PO Q6H PRN nausea and 04/14/25 tablet vomiting #10 tabs Allergies Allergy/AdvReac Type Severity Reaction Status Date / Time No Known Allergies Allergy Verified 04/14/25 11:50 Review of Systems 2 Review of Systems: Yes all other systems are reviewed and are negative [facility] Past Medical History Medical History COPD exacerbation Atrial fibrillation with RVR Sciatica Prediabetes Asbestosis Chronic cough Surgical History Hx of cardiac cath Social History Social History Household Members: Spouse, Family and Children Housing: House Do you presently have visiting nurse or other home services: No Alcohol intake: current Alcohol intake frequency: holidays/special occasions only Patient Tobacco Use Status: Never used Tobacco Advance Directives Date on File: 09/13/24 service: No Current occupational status: retired Physical Exam ED Vital Signs: Vital Signs - 24 hr 04/14/25 11:49 04/14/25 13:25 04/14/25 14:00 Temperature 97.5 F 98.2 F Pulse Rate 67 58 55 Respiratory Rate 18 20 13 Blood Pressure 133/82 147/63 H 146/67 H Pulse Oximetry 98 90 L 94 Oxygen Delivery Method Room Air Room Air 04/14/25 16:04 04/14/25 17:12 Temperature 98.4 F Pulse Rate 65 65 Respiratory Rate 20 20 Blood Pressure 136/60 136/60 Pulse Oximetry 94 94 Oxygen Delivery Method Room Air Room Air BMI result Body Mass Index 23.2 Const Other: The patient is an 80-year-old man. He looks somewhat frail and chronically ill but not obviously acutely ill. He did not appear in obvious acute pain. HENMT Other: Face is symmetrical, mucous membranes moist. Eyes General: appearance normal, both eyes and all related structures Neck Neck: Yes normal visual inspection, Yes full ROM and Yes no JVD Resp Other: No increased work of breathing. There are crackles at the right base. Left lung field is clear. Cardio Rate: regular rate Rhythm: regular rhythm Heart sounds: S1 normal heart sound present and S2 normal heart sound present GI Other: The abdomen is soft. There is some mild right-sided tenderness. Back/Spine/Pelvis Other: There is right-sided CVA percussion tenderness. Skin Other: The skin is pale and dry Neuro Other: The patient is awake and alert with a normal mental status. Cranial nerves are grossly intact. He moves his extremities symmetrically and seems grossly neurologically intact. Extrem Other: No peripheral edema Course Course Course Narrative: RME, this is a rapid medical exam performed by Jaren Weber please refer to primary provider for complete H&P- 80-year-old male past medical history significant for atrial fibrillation Eliquis, heart failure, history of thrombocytopenia, coronary artery disease on clopidogrel, chronic kidney disease presents for evaluation of right lower abdominal pain. He had pain in the area 1 week ago that resolved and had worsening pain against starting this morning. Decreased appetite but no nausea, vomiting. Plan for labs, we will defer advanced imaging to primary ER provider Medications Administered Discontinued Medications Generic Name Dose Route Start Last Admin Trade Name Freq PRN Reason Stop Dose Admin Lactated Ringer's 1,000 mls @ 999 mls/hr 04/14/25 15:30 04/14/25 16:49 Lr IV 04/14/25 16:30 Infused .Q1H1M RASHAD Infusion Acetaminophen 1,000 mg in 100 mls @ 400 mls/hr 04/14/25 15:49 04/14/25 16:16 Ofirmev IV 04/14/25 16:03 Infused ONCE ONE Infusion Medical Decision Making Medical Decision Making MDM Narrative: The patient is an 80-year-old male who presents to the emergency room for evaluation of right-sided abdominal or flank pain. His description of the symptoms suggests a possible ureteral colic. He had right-sided pain that began this morning and which has been intermittent. The patient had a CT scan of the abdomen and pelvis. This was done without IV contrast because of his chronic renal insufficiency. The CT scan shows a 3 mm stone in his mid right ureter. His urinalysis does not suggest a UTI. I think the patient is presenting complaint is sufficiently explained by the finding on his CAT scan of a 3 mm ureteral stone. The [place] [address]. I think this is probably incidental to his complaint today. He had significant elevations of his white blood count when he was briefly hospitalized in early November of this year. At that point his leukocytosis was attributed to steroid use that had preceded his hospitalization. I have some suspicion that he has probably had a chronically elevated white blood count during the last several months. The patient is renal colic was easily managed with IV acetaminophen. He looks well enough for outpatient management with regard to his kidney stone. He will be prescribed morphine tablets to be used as needed and ondansetron as well. With regard to his significantly elevated white blood count I contacted Dr. Andino of Hematology/Oncology. 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 The patient seems uninfected and stable. He will be therefore discharged to contact the Hematology/Oncology office in the morning for a follow up appointment next week. If at any point he develops a fever or feel significantly worse he should return to the emergency room. Lab Data 04/14/25 12:03 04/14/25 12:03 Labs: Lab Results 04/14/25 04/14/25 04/14/25 Range/Units 12:03 13:23 15:30 WBC 60.5 H* (4.8-10.8) X10*3/uL RBC 3.62 L (4.60-5.80) X10*6/uL Hgb 10.8 L (14.0-18.0) g/dl Hct 34.1 L (42.0-52.0) % MCV 94.2 (80.0-98.0) fL MCH 29.8 (27.0-33.0) pg MCHC 31.7 (31.0-36.0) g/dl RDW 19.9 H (11.0-16.0) % Plt Count 94 L (160-400) X10*3/uL MPV 13.3 H (9.4-12.4) fL Immature Gran % (Auto) Cancelled Neut % (Auto) Cancelled Lymph % (Auto) Cancelled [place] % (Auto) Cancelled Eos % (Auto) Cancelled Baso % (Auto) Cancelled Lymph # (Auto) Cancelled [place] # (Auto) Cancelled Eos # (Auto) Cancelled Baso # (Auto) Cancelled Abs Immat Gran (auto) Cancelled Absolute Neuts (auto) Cancelled Absolute Nucleated RBC 0.050 H (0.0-0.012) X10*3/uL Nucleated RBC % (auto) 0.1 (0.0-0.2) /100WBC Neutrophils % (Manual) 63 (45-73) % Band Neutrophils % 18 H (3-5) % Lymphocytes % (Manual) 4 L (20-40) % Monocytes % (Manual) 11 (2-11) % Eosinophils % (Manual) 1 (0-4) % Metamyelocytes % 1 % Myelocytes % 2 % Abs Neuts (Manual) 49.0 H (2.0-8.3) X10*3/uL Lymphocytes # (Manual) 2.4 (1.2-4.9) X10*3/uL Monocytes # (Manual) 6.7 H (0.1-1.2) X10*3/uL Eosinophils # (Manual) 0.6 H (0.0-0.4) X10*3/uL Metamyelocytes # 0.6 X10*3/uL Myelocytes # 1.2 X10*/uL Nucleated RBCs 1 H (0-0) /100WBC Toxic Granulation PRESENT Dohle Bodies PRESENT Platelet Estimate DECREASED (NORMAL) Large Platelets PRESENT Plt Morphology Comment NOTED RBC Morphology NOTED Polychromasia 1+ (0-2) /OIF Macrocytosis 1+ (5-14) /OIF Ovalocytes 1+ (5-14) /OIF Ludwig Cells 1+ (0-2) /OIF Sodium 140 (135-145) mmol/L Potassium 4.8 (3.3-5.1) mmol/L Chloride 111 H (96-108) mmol/L Carbon Dioxide 20 L (22-29) mmol/L Anion Gap 14 (12-20) BUN 29 H (9-16) mg/dL Creatinine 1.95 H (0.5-1.4) mg/dL Estim Creat Clear Calc 27.3 Estimated GFR 33 Random Glucose 181 H (60-115) mg/dL Lactic Acid 1.7 (0.5-2.0) mmol/L Calcium 8.8 (8.4-10.2) mg/dL Total Bilirubin 0.8 (0.0-1.0) mg/dL AST 48 H (5-37) U/L ALT 23 (0-40) U/L Alkaline Phosphatase 220 H (39-117) U/L C-Reactive Protein 2.03 H (< or = 0.50) mg/dL Total Protein 7.1 (6.5-8.0) g/dL Albumin 4.2 (3.5-5.0) g/dL Lipase 38 (8-78) U/L Urine Color Yellow Urine Appearance Cloudy Urine pH 5.5 (5.0-9.0) Ur Specific [place] 1.015 (1.005-1.025) Urine Protein 100 (2+) H (Neg-Trace) mg/dL Urine Glucose (UA) Negative (Negative) mg/dL Urine Ketones Negative (Negative) mg/dL Urine Blood Large (3+) H (Negative) Urine Nitrite Negative (Negative) Ur Leukocyte Esterase Trace H (Negative) Urine RBC >20 H (0-2) /HPF Urine WBC 6-10 (0-5) /HPF Ur Squamous Epith Cells 0-2 (0-2) /HPF Other Crystals Present Urine Bacteria None Seen (None Seen) Hyaline Casts 6-10 (0-2) /LPF Discharge Plan Discharge Clinical Impression: Ureteral colic, Leucocytosis, Right ureteral calculus, Chronic kidney disease Patient Disposition: Home, Self-Care Instructions: Renal Colic (ED), Ureteral Stones (ED) Additional Instructions: You have a 3 mm stone in your right ureter, the tube which connects your right kidney to your bladder. This is a kidney stone. For pain you may take acetaminophen as needed. I have also sent a prescription for morphine tablets which you may use as well as needed. I would recommend starting with a half a tablet of the morphine to see how well you tolerate it. I have also sent a prescription for ondansetron (Zofran), a nausea medication which you may use as needed. Drink a lot of fluids. Keep your appointment with your primary care doctor tomorrow and also with your e commerce web developer on Monday. In addition to the finding of the kidney stone we have also found that you have a very elevated white blood count today. This will need additional follow up as well with the hematology/oncology office. Please contact the office tomorrow and I believe you will be given an appointment next week. You can tell them that the ER doctor spoke to Dr. Andino. If at any point you feel significantly worse, especially if you develop a fever or vomiting, return directly to the emergency room. Prescriptions: New morphine 15 mg tablet 15 mg PO Q6H PRN (Reason: pain) Qty: 14 0RF Rx Instructions: Partial Fill upon patient request. ondansetron 4 mg tablet,disintegrating 4 mg PO Q6H PRN (Reason: nausea and vomiting) Qty: 10 0RF acetaminophen 500 mg capsule 1,000 mg PO Q8H PRN (Reason: fever or pain) Qty: 14 0RF No Action Eliquis 2.5 mg tablet 2.5 mg PO BID Qty: 180 3RF atorvastatin 40 mg tablet 40 mg PO BEDTIME Qty: 90 3RF clopidogrel 75 mg tablet 75 mg PO DAILY Qty: 90 3RF metoprolol tartrate 25 mg tablet 25 mg PO BID Qty: 180 3RF Protocol: Hold for SBP/HR < HOLD for SBP < : 90 HOLD for HR < : 60 furosemide 20 mg tablet 20 mg PO .COMPLEX PRN (Reason: orthopnea or edema) Qty: 30 0RF Rx Instructions: Does not need refill at this time metformin 1,000 mg tablet 1,000 mg PO BID Qty: 180 1RF Arnuity Ellipta 200 mcg/actuation blister with device 1 inh inhalation DAILY Qty: 1 6RF Referrals: [facility] Oncology/Hematology [Provider Group] (WBC 60,000) Grey Vivas MD [Physician] - (kidney stone, CRF) Kobe Christian MD [Primary Care Provider] - (kidney stone, leukocytosis) Interventions: ED Discharge Assessment Last Done: 04/14/25 17:12 Discharge Date/Time: 04/14/25 17:13 Print Language: Albanian
[2025-04-14 11:49] VITALS: BP 133/82; PULSE 67; RESP 18; TEMP 36.4; O2SAT 98; BMI 23.2
--- OUTSIDE RECORDS SUMMARY | 2025-04-14 12:03 | XMS_ITS | Clinical Summary ---
Author Organization [facility] Facility Address [address] [place] [address] Care Team Providers Care Financial Institution Vice President Name Role Phone Mode Thompson MD Primary Care Provider [phone] Allergies No known active allergies Medications metFORMIN [...] age to complete this topic Insurance Medicare [facility] Medicare [facility] Care Teams Financial Institution Vice President Relationship Specialty Start Date End Date Mode Thompson MD [address] [place] [address] [id number] [place] PCP - General 11/30/20
[2025-04-14 12:17] LABS: Hemoglobin 10.8 g/dl (14.0-18.0); NRBC Pct Auto 0.1 /100WBC (0.0-0.2); Red Cell Distribution Width 19.9 % (11.0-16.0)
[2025-04-14 12:18] LABS: PLT CLUMP 1
[2025-04-14 12:19] LABS: Hematocrit 34.1 % (42.0-52.0); Mean Corpuscular HGB Conc 31.7 g/dl (31.0-36.0); Mean Corpuscular Hemoglobin 29.8 pg (27.0-33.0); Mean Corpuscular Volume 94.2 fL (80.0-98.0); Mean Platelet Volume 13.3 fL (9.4-12.4); Red Blood Count 3.62 X10*6/uL (4.60-5.80)
[2025-04-14 12:20] LABS: PLT ABN DIST 1; WBC ABN SCTR FOR CBC 1
[2025-04-14 12:22] LABS: Alanine Aminotransferase 23 U/L (0-40); Albumin Level 4.2 g/dL (3.5-5.0); Alkaline Phosphatase 220 U/L (39-117); Anion Gap 14 (12-20); Aspartate Amino Transferase 48 U/L (5-37); Bilirubin Total 0.8 mg/dL (0.0-1.0); Blood Urea Nitrogen 29 mg/dL (9-16); Calcium 8.8 mg/dL (8.4-10.2); Carbon Dioxide 20 mmol/L (22-29); Chloride 111 mmol/L (96-108); Creatinine Clr Calc Pharmacy 27.3; Estimated Glomerular Filt Rate 33; Glucose Random 181 mg/dL (60-115); Lipase 38 U/L (8-78); Potassium 4.8 mmol/L (3.3-5.1); Sodium 140 mmol/L (135-145); Total Protein 7.1 g/dL (6.5-8.0)
[2025-04-14 12:24] LABS: White Blood Count 60.5 X10*3/uL (4.8-10.8)
[2025-04-14 12:57] LABS: Neutrophils Percent Manual 63 % (45-73)
[2025-04-14 12:59] LABS: Band Neutrophils Percent 18 % (3-5); Eosinophils Absolute Manual 0.6 X10*3/uL (0.0-0.4); Eosinophils Percent Manual 1 % (0-4); Lymphocytes Absolute Manual 2.4 X10*3/uL (1.2-4.9); Lymphocytes Percent Manual 4 % (20-40); Metamyelocytes Absolute 0.6 X10*3/uL; Metamyelocytes Percent 1 %; Monocytes Absolute Manual 6.7 X10*3/uL (0.1-1.2); Monocytes Percent Manual 11 % (2-11); Myelocytes Absolute 1.2 X10*/uL; Myelocytes Percent 2 %; Nucleated Red Blood Cells 1 /100WBC (0-0); RBC Morphology NOTED
[2025-04-14 13:03] LABS: Macrocytosis 1+ (5-14) /OIF
[2025-04-14 13:05] LABS: Burr Cells 1+ (0-2) /OIF; Ovalocytes 1+ (5-14) /OIF
[2025-04-14 13:06] LABS: Dohle Bodies PRESENT; Large Platelet PRESENT; Platelet Estimate DECREASED (NORMAL); Platelet Morphology Comment NOTED; Polychromasia 1+ (0-2) /OIF; Toxic Granulation PRESENT
[2025-04-14 13:09] LABS: Platelet Count 94 X10*3/uL (160-400)
[2025-04-14 13:25] VITALS: BP 147/63; PULSE 58; RESP 20; O2SAT 90
[2025-04-14 13:45] LABS: Lactic Acid 1.7 mmol/L (0.5-2.0)
[2025-04-14 13:56] LABS: C Reactive Protein 2.03 mg/dL (< or = 0.50)
[2025-04-14 14:00] VITALS: BP 146/67; PULSE 55; RESP 13; TEMP 36.8; O2SAT 94
[2025-04-14] MEDS: Lactated Ringers 1,000 ML 999 ML IV (15:32)
[2025-04-14 15:35] LABS: Appearance Urine Cloudy; Color Urine Yellow; Glucose Urine UA Negative (Negative); Leukocyte Esterase Urine Trace (Negative); Nitrite Urine Negative (Negative); PH 5.5 (5.0-9.0); Specific Gravity - Urine 1.015 (1.005-1.025); UMIC TRIGGER UACC YES; Urine Blood Large (3+) (Negative); Urine Ketones Negative (Negative); Urine Protein 100 (2+) mg/dL (Neg-Trace)
[2025-04-14 15:47] LABS: Bacteria Urine None Seen (None Seen); Other Crystals Urine Present; RBC Urine >20 /HPF (0-2); Squamous Epithelial Cell Urine 0-2 /HPF (0-2); UACC Culture Trigger YES
[2025-04-14] MEDS: Acetaminophen 1,000 MG/100 ML PIGGYBACK 400 MG IV (15:57)
[2025-04-14 16:04] VITALS: BP 136/60; PULSE 65; RESP 20; O2SAT 94
--- NOTE | 2025-04-14 16:13 | PC.NURSE ---
Patient alert and oriented, from home with complaints of intermittent right lower quadrant abdominal pain. Patient pale with elevated wbc. States wbc`s have been elevated since previous hospital stay but has not had further work up for the elevated wbc`s. son at bedside
[2025-04-14 17:12] VITALS: BP 136/60; PULSE 65; RESP 20; TEMP 36.9; O2SAT 94
== END 2025-04-14 17:13 | disposition home or self-care (01) ==
PROVIDERS: Physician Assistant; Emergency Provider Emergency Medicine; PCP Internal Medicine
DX: N13.2 Hydronephrosis with renal and ureteral calculous obstruction (principal); D72.829 Elevated white blood cell count, unspecified; R10.31 Right lower quadrant pain; E11.22 Type 2 diabetes mellitus with diabetic chronic kidney disease; I13.0 Hypertensive heart and chronic kidney disease with heart failure and stage 1 through stage 4 chronic kidney disease, or unspecified chronic kidney disease; N18.30 Chronic kidney disease, stage 3 unspecified; I50.20 Unspecified systolic (congestive) heart failure; R06.02 Shortness of breath; I48.91 Unspecified atrial fibrillation; Z87.891 Personal history of nicotine dependence; Z79.899 Other long term (current) drug therapy; Z79.84 Long term (current) use of oral hypoglycemic drugs; Z79.01 Long term (current) use of anticoagulants
CPT/HCPCS: 36415; 71046; 74176; 80053; 81001; 83605; 83690; 85007; 85027; 86140; 87040; 87086; 96361; 96374; 99284; J0131; J7120

== ENCOUNTER → 2025-04-14 13:37 | Outpatient (BNV) | payer MEDICARE, BC, SELFPAY | PROVIDERS: Emergency Provider Emergency Medicine; PCP Internal Medicine; Visit Provider Radiology Diagnostic Radiology | DX: N13.2 Hydronephrosis with renal and ureteral calculous obstruction (principal); J84.9 Interstitial pulmonary disease, unspecified | CPT/HCPCS: 71046; 74176 ==

== ENCOUNTER 2025-04-16 15:45 | Outpatient (AMB) | payer MEDICARE, BC, SELFPAY ==
--- NOTE | 2025-04-16 15:47 | A.OFFPC_ITS ---
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 Type 2 diabetes-last hemoglobin A1c 5.3%. Continues on metformin 1000 mg twice daily. Up-to-date on eye exams. Paroxysmal atrial fibrillation-rate controlled. On Eliquis for anticoagulation and metoprolol for rate control. Denies any bleeding or easy bruisability. Coronary artery disease-H/O NSTEMI s/p cardiac catheterization with DCS to the proximal left circumflex and RCA. On Eliquis and Plavix. Following with cardiology. No dyspnea on exertion, orthopnea, palpitations, shortness of breath, chest pain. Continues with cardiac rehab COPD-last exacerbation requiring hospitalization 4 months ago. Compliant with Arnuity Ellipta. Rarely requires use of albuterol CKD stage 3- cc/gfr and creat stable Acute issues: Recently seen in [facility] [place] [place] ED on 04/14 and was diagnosed with 3 mm ureteral stone on CT. There was no evidence of UTI. Ultimately was discharged with pain management as well as antiemetics and advised to drink plenty of fluids. Symptoms did resolve. More concerning was a leukocytosis of 60.5 while in the ED. He has had a history of leukocytosis which was attributed to the chronic prednisone that he was taking. Leukocytosis at that time was in the low 20s with neutrophil predominance/neutrophilia, 18% bandemia. No blasts. +dohle bodies. He does endorse fatigue, weakness, poor appetite. He denied unintentional weight loss, but on review of chart has lost nearly 20 pounds in the last 6 months. ROS: General: No fevers, malaise, unintentional weight loss HEENT: No blurred vision, diplopia. No sore throat, nasal congestion, rhinorrhea, sinus pain, ear pain Cardiovascular: No chest pain, palpitations, or leg edema Respiratory: No shortness of breath, wheezing, cough GI: No abdominal pain, nausea, vomiting, diarrhea, constipation, melena, hematochezia : No dysuria, hematuria, increased urinary frequency, decreased urinary output MSK: No myalgia, back pain Neuro: No headaches, weakness, paresthesias Skin: No rashes or lesions EXAM: Constitutional - Awake and Alert, No apparent distress, cachectic Eyes - PERRL Cardiovascular - S1S2, RRR, No edema Respiratory - Normal lung expansion, Normal respiratory effort, No respiratory distress, CTA bilaterally Extremities - no calf tenderness bilaterally, no swelling Skin - Warm/Dry, no significant bruising noted Neurological - Alert & oriented x3 Psychological - Appropriate affect [facility] Medical History (Updated 04/18/25 @ 11:08 by RUBÉN Alan) Atrial fibrillation CKD stage 3 secondary to diabetes COPD exacerbation Atrial fibrillation with RVR Sciatica Prediabetes Asbestosis Chronic cough Surgical History (Updated 04/16/25 @ 14:16 by Heather Barillas) History of colonoscopy (~10/27/16) Hx of cardiac cath Social History Household Members: Spouse, Family and Children Housing: House Do you presently have visiting nurse or other home services: No Alcohol intake: current Alcohol intake frequency: holidays/special occasions only Patient Tobacco Use Status: Never used Tobacco Advance Directives Date on File: 09/13/24 service: No Current occupational status: retired Questionnaire PHQ-9 Over the last 2 weeks, how often have you been bothered by any of the following problems? 1. Little interest or pleasure in doing things: several days 2. Feeling down, depressed, or hopeless: not at all 3. Trouble falling or staying asleep, or sleeping too much: nearly every day 4. Feeling tired or having little energy: nearly every day 5. Poor appetite or overeating: several days 6. Feeling bad about yourself - or that you are a failure or have let yourself or your family down: not at all 7. Trouble concentrating on things, such as reading the newspaper or watching television: not at all 8. Moving or speaking so slowly that other people could have noticed. Or the opposite - being so fidgety or restless that you have been moving around a lot m ore than usual: not at all 9. Thoughts that you would be better off or of hurting yourself in some way: not at all Total score: 8 Source: Developed by Drs. Ezio Dueñas, Brendan Patel and colleagues, with an educational aicha from [employer]. Thrive Questionnaire Date Thrive assessed: 11/21/24 I am a: Patient What is your living situation today?: I have a steady place to live Within the past 12 months, did the food you bought not last and you didn't have the money to get more?: Never true Within the past 12 months, did you worry whether your food would run out before you got money to buy more?: Never true Do you have trouble paying for medicines?: No Do you have trouble getting transportation to medical appointments?: No Do you have trouble paying your heating and electricity bill?: No Do you have trouble taking care of your child, family member or friend?: No Do you have trouble with day-to-day activities such as bathing, preparing meals, shopping, managing finances, etc.?: No Are you currently unemployed and looking for a job?: No Are you interested in more education?: No Please select the resources that you would like help with: None THRIVE Score: 0 CHACE-7 AMB Questionnaire CHACE-7 Date CHACE - 7 assessed: 04/16/25 Feeling nervous, anxious, or on edge: 0 = Not at all Not being able to stop or control worryin = Not at all Worrying too much about different things: 0 = Not at all Trouble relaxin = Not at all Being so restless that it is hard to sit still: 0 = Not at all Becoming easily annoyed or irritable: 0 = Not at all Feeling afraid as if something awful might happen: 0 = Not at all Total CHACE-7 score (0-4 normal; 5-9 mild; 10-14 moderate; 15-21 severe): 0 Source: Developed by Drs. Ezio Dueñas, Brendan Patel and colleagues, with an educational aicha from [employer]. Physical exam (Primary Care) Vital Signs: Last Vital Signs Temp 97.7 F 04/16/25 15:54 Pulse 80 04/16/25 15:54 Resp 16 04/16/25 15:54 BP 128/68 04/16/25 16:15 Pulse Ox 93 04/16/25 15:54 Oxygen Delivery Method Room Air 04/16/25 15:54 BMI result Body Mass Index 22.6 Tobacco/Smoking Status: Tobacco use Status Patient Tobacco Use Status Never used Tobacco 04/16/25 15:49 PHQ-9: PHQ-9 Score PHQ-9: Total score 8 04/17/25 18:21 Thrive Assessment: Date of Thrive Assessment Date Thrive assessed 11/21/24 04/16/25 15:49 Coding Level of Care Code New Pt Level 4 (59286) Complex EM visit Add On G2211 Diagnoses Diabetes E11.9 Elevated WBC count D72.825 Leukocytosis type: bandemia Atrial fibrillation I48.91 Bronchiectasis J47.9 CKD stage 3 secondary to diabetes E11.22; N18.30 Assessment & Plan Assessment & Plan (1) Diabetes: Code(s): E11.9 - Type 2 diabetes mellitus without complications Category: Medical Plan: Previously controlled with A1c 5.1%. Will repeat today. Continue metformin for now. Diabetic diet. Annual eye exams and foot exams (2) Elevated WBC count: Code(s): D72.829 - Elevated white blood cell count, unspecified Category: Medical Qualifiers: Leukocytosis type: bandemia Qualified Code(s): D72.825 - Bandemia Plan: WBC 60.5 with 18% bandemia and neutrophilia and dohle bodies. No blasts noted. symptomatic with unintentional weight loss, fatigue, poor appetite, weakness. Concerning for CML. Has upcoming appointment with Oncology 04/24. (3) Atrial fibrillation: Code(s): I48.91 - Unspecified atrial fibrillation Category: Medical Plan: Rate controlled. Continue eliquis for AC and metoprolol for rate control. (4) Bronchiectasis: Code(s): J47.9 - Bronchiectasis, uncomplicated Category: Medical Plan: Stable. Continue arnuity ellipta for maintenance and albuterol only as needed for sob/wheezing. Continue following with Dr. Napier (5) CKD stage 3 secondary to diabetes: Code(s): E11.22 - Type 2 diabetes mellitus with diabetic chronic kidney disease; N18.30 - Chronic kidney disease, stage 3 unspecified Category: Medical Plan: Stable. Continue following with nephrology. Plan Follow up in 4 months, labs to be completed today and prior to next visit. Follow up with oncology Orders: Orders Complete Blood Count Auto Diff 5 Months D72.825 - Bandemia, E11.22 - Type 2 diabetes mellitus with diabetic chronic kidney disease, E11.9 - Type 2 diabetes mellitus without complications, I48.91 - Unspecified atrial fibrillation, N18.30 - Chronic kidney disease, stage 3 unspecified Hemoglobin A1c 04/16/25 E11.22 - Type 2 diabetes mellitus with diabetic chronic kidney disease, E11.9 - Type 2 diabetes mellitus without complications, N18.30 - Chronic kidney disease, stage 3 unspecified Complete Blood Count Auto Diff Today D72.825 - Bandemia Pathologist Review - CBC Today D72.825 - Bandemia Basic Metabolic Panel 5 Months D72.825 - Bandemia, E11.22 - Type 2 diabetes mellitus with diabetic chronic kidney disease, E11.9 - Type 2 diabetes mellitus without complications, I48.91 - Unspecified atrial fibrillation, N18.30 - Chronic kidney disease, stage 3 unspecified Hemoglobin A1c 5 Months D72.825 - Bandemia, E11.22 - Type 2 diabetes mellitus with diabetic chronic kidney disease, E11.9 - Type 2 diabetes mellitus without complications, I48.91 - Unspecified atrial fibrillation, N18.30 - Chronic kidney disease, stage 3 unspecified Liver Panel 5 Months D72.825 - Bandemia, E11.22 - Type 2 diabetes mellitus with diabetic chronic kidney disease, E11.9 - Type 2 diabetes mellitus without complications, I48.91 - Unspecified atrial fibrillation, N18.30 - Chronic kidney disease, stage 3 unspecified
[2025-04-16 15:54] VITALS: BP 140/68; PULSE 80; RESP 16; TEMP 36.5; O2SAT 93; BMI 22.6
--- OUTSIDE RECORDS SUMMARY | 2025-04-16 16:08 | XMS_ITS | Clinical Summary ---
Author Organization [facility] Facility Address [address] [place] [address] Care Team Providers Care Sort Operations Supervisor Name Role Phone Mode Thompson MD Primary Care Provider [phone] Allergies No known active allergies Medications metFORMIN [...] age to complete this topic Insurance Medicare [facility] Medicare [facility] Care Teams Sort Operations Supervisor Relationship Specialty Start Date End Date Mode Thompson MD [address] [place] [address] [id number] [place] PCP - General 11/30/20
[2025-04-16 16:15] VITALS: BP 128/68
== END 2025-04-16 16:23 | disposition home or self-care (01) ==
LOC: HO.HMCHD 15:46
PROVIDERS: PCP Internal Medicine; Visit Provider Internal Medicine
DX: E11.22 Type 2 diabetes mellitus with diabetic chronic kidney disease (principal); D72.825 Bandemia; I48.91 Unspecified atrial fibrillation; J47.9 Bronchiectasis, uncomplicated; N18.30 Chronic kidney disease, stage 3 unspecified

== ENCOUNTER → 2025-04-16 15:45 | Outpatient (BNVA) | payer MEDICARE, BC, SELFPAY | PROVIDERS: PCP Internal Medicine; Visit Provider Internal Medicine | DX: D72.825 Bandemia (principal); I48.91 Unspecified atrial fibrillation; J47.9 Bronchiectasis, uncomplicated; E11.22 Type 2 diabetes mellitus with diabetic chronic kidney disease; N18.30 Chronic kidney disease, stage 3 unspecified | CPT/HCPCS: 99202 ==

== ENCOUNTER 2025-04-18 14:41 | Outpatient (AMB) | payer MEDICARE, BC, SELFPAY ==
--- OUTSIDE RECORDS SUMMARY | 2025-04-18 14:43 | XMS_ITS | Clinical Summary ---
Author Organization [facility] Facility Address [address] [place] [address] Care Team Providers Care Structural Steel Trades Worker Name Role Phone Mode Thompson MD Primary Care Provider [phone] Allergies No known active allergies Medications metFORMIN [...] age to complete this topic Insurance Medicare [facility] Medicare [facility] Care Teams Structural Steel Trades Worker Relationship Specialty Start Date End Date Mode Thompson MD [address] [place] [address] [address] [place] PCP - General 11/30/20
--- NOTE | 2025-04-18 14:48 | HO.NEPHOV_ITS ---
Vital Signs 04/18/25 14:52 Height 5 ft 7 in Weight 143 lb 8 oz BMI 22.5 BP 110/60 Blood Pressure Location Lt brachial Position Sitting Pulse 79 Pulse Source Pulse Oximeter Pulse Oximetry (%) 94 Oxygen Delivery Method Room Air Intake Visit Reasons: INP: Previous pt- CKD stg3/ TALA-Conf Delivery Coordinator Required: No Accompanied by: Son Allergies No Known Allergies Allergy (Verified 05/09/25 15:00) HPI Comments Details: I had the pleasure of seeing Ace in follow-up of his worsening chronic kidney disease and a renal cyst. He does not have any dysuria, hematuria or frequency with micturition. His blood sugar control is quite reasonable. He does not have any flank pain, night sweats, weight loss or edema. He has lost some weight. He follows up with PCP regularly. He denies chest pain, shortness of breath, nausea, vomiting, diarrhea. He does not take any not tried anti- inflammatory medications. His blood pressure is well controlled. His WBC has gone up to 61.0 PFSH Medical History (Updated 05/07/25 @ 13:40 by RUBÉN Alan) Atrial fibrillation CKD stage 3 secondary to diabetes COPD exacerbation Atrial fibrillation with RVR Sciatica Prediabetes Asbestosis Chronic cough Surgical History History of colonoscopy (~10/27/16) Hx of cardiac cath Social History Household Members: Spouse, Family and Children Housing: House Do you presently have visiting nurse or other home services: No Alcohol intake: current Alcohol intake frequency: holidays/special occasions only Patient Tobacco Use Status: Former Tobacco user Advance Directives Date on File: 09/13/24 service: Yes Current occupational status: retired and disabled Review of Systems Const All systems reviewed & are unremarkable except as noted in HPI and below Physical Exam Vital Signs: Last Vital Signs Pulse 79 04/18/25 14:52 BP 110/60 04/18/25 14:52 Pulse Ox 94 04/18/25 14:52 Oxygen Delivery Method Room Air 04/18/25 14:52 BMI result Body Mass Index 22.5 Const General: comfortable and no acute distress Orientation/consciousness: patient oriented x3 HEENT Head: Yes normocephalic Mouth: Normal oral and palatal mucosa present Eyes EOM: EOMs intact bilaterally Neck Neck: Yes supple Resp Auscultation: clear to auscultation bilaterally Cardio Jugular venous distension: no JVD Rate: regular rate GI Palpation (GI): Soft to palpation Auscultation: normal bowel sounds General: Yes no CVA tenderness Back/Spine/Pelvis Back: no CVA tenderness Skin General skin exam: no rashes or lesions noted Neuro General: patient oriented x3 and moves all extremities Extrem General: Yes no pedal edema Results Reviewed Nephrology Results: Hgb, (14.0-18.0) 10.5 g/dl L 05/07/25 WBC, (4.8-10.8) 30.4 X10*3/uL H* 05/07/25 Plt Count, (160-400) 87 X10*3/uL L 05/07/25 Sodium, (135-145) 142 mmol/L 05/07/25 Potassium, (3.3-5.1) 4.9 mmol/L 05/07/25 Chloride, (96-108) 113 mmol/L H 05/07/25 Carbon Dioxide, (22-29) 22 mmol/L 05/07/25 BUN, (9-16) 31 mg/dL H 05/07/25 Creatinine, (0.5-1.4) 1.79 mg/dL H 05/07/25 Calcium, (8.4-10.2) 8.9 mg/dL 05/07/25 Urine Protein, (Neg-Trace) 100 (2+) mg/dL H 04/14/25 Assessment & Plan Assessment & Plan (1) Acute kidney injury superimposed on CKD: Code(s): N17.9 - Acute kidney failure, unspecified; N18.9 - Chronic kidney disease, unspecified Category: Medical Plan Ace has CKD stage 3 likely from vascular disease and age related loss of renal function. His serum creatinine is worse. He has WBC of 61.0 . 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 His uric acid should also be high which put him at risk for urate nephropathy. He is not on any Austin inhibitors. He should be seen by heme and likely needs initiation of hydroxy urea as well as Allopurinol. He should maintain good hydration. F/U labs ordered. All his and sons questions were answered. Orders: Orders Lactate Dehydrogenase 04/21/25 N17.9 - Acute kidney failure, unspecified, N18.9 - Chronic kidney disease, unspecified Electrolytes 04/21/25 N17.9 - Acute kidney failure, unspecified, N18.9 - Chronic kidney disease, unspecified Calcium 04/21/25 N17.9 - Acute kidney failure, unspecified, N18.9 - Chronic kidney disease, unspecified Uric Acid 04/21/25 N17.9 - Acute kidney failure, unspecified, N18.9 - Chronic kidney disease, unspecified Creatinine 04/21/25 N17.9 - Acute kidney failure, unspecified, N18.9 - Chronic kidney disease, unspecified Blood Urea Nitrogen 04/21/25 N17.9 - Acute kidney failure, unspecified, N18.9 - Chronic kidney disease, unspecified Medications: New empagliflozin (Jardiance) 10 mg PO DAILY 30 tabs 5RF Discontinued metformin Discontinued Reason: Doctor's Order 1,000 mg PO BID 180 tabs 1RF Coding Level of Care Code Est Pt Level 4 (75507) Diagnoses Acute kidney injury superimposed on CKD N17.9; N18.9
[2025-04-18 14:52] VITALS: BP 110/60; PULSE 79; O2SAT 94; BMI 22.5
== END 2025-04-18 15:28 | disposition home or self-care (01) ==
LOC: HO.HKA 14:41
PROVIDERS: PCP Internal Medicine; Referring Provider Nurse Practitioner Family; Visit Provider Internal Medicine Nephrology
DX: N17.9 Acute kidney failure, unspecified (principal); N18.9 Chronic kidney disease, unspecified
CPT/HCPCS: 99214

== ENCOUNTER → 2025-04-18 14:41 | Outpatient (BNVA) | payer MEDICARE, BC, SELFPAY | PROVIDERS: PCP Internal Medicine; Referring Provider Nurse Practitioner Family; Visit Provider Internal Medicine Nephrology | DX: N18.30 Chronic kidney disease, stage 3 unspecified (principal); N17.9 Acute kidney failure, unspecified; Z79.84 Long term (current) use of oral hypoglycemic drugs | CPT/HCPCS: 99212 ==

== ENCOUNTER 2025-04-21 14:30 | Outpatient (REF) | payer MEDICARE, BC, SELFPAY ==
--- OUTSIDE RECORDS SUMMARY | 2025-04-21 15:48 | XMS_ITS | Patient Health Record ---
Author Organization [facility] Address [address] [place] [address] Care Team Providers Care Director Of Ancillary Services Name Role Phone Mode Thompson MD Primary Care Provider Kirstena Ezio Bagley Unavailable [phone] Reason For Referral No Information Medications Medication SIG (Take, Route, Frequency, Duration) Notes Start Date End Date Status metFORMIN HCl 500 MG 1 tablet with meals Orally Twice a day Active Aspirin Adult Low Dose 81 MG 1 tablet Orally Once a day A ctive Problems Problem Type SNOMED Code ICD Code Onset Dates Problem Status W/U Status Risk Notes Problem [id number] Encounter for screening for malignant neoplasm of colon (Z12.11) Active confirmed Problem Screening for malignant neoplasm of rectum (423785957) Encounter for screening for malignant neoplasm of rectum (Z12.12) Active confirmed Problem 580195903 Elevated liver enzymes (R74.8) Active confirmed Problem 78293928 Iron excess (E83.19) Active confirmed Plan Of Treatment Pending Test Test Name Order Date [id number] (A1A) 08/07/2016 MITOCHONDRIAL AB 08/07/2016 SMOOTH MUSCLE ANTIBODIES 08/07/2016 HEMOCHROMATOSIS (C282Y) 08/07/2016 FLUOR. ANTINUCLEAR AB SCREEN (KERWIN) 07/21 Future Test Test Name Order Date COLONOSCOPY 07/29/2016 Insurance Providers Payer Name Payer Address Payer Phone Subscriber Number Group Number Insured Name Patient Relationship to Insured Coverage Start Date Coverage End Date MEDICARE OF [place] [address] [place] [address] [id number] DWAYNE GARNER Self - patient is the insured HMO BLUE [employer] PROFESSIONAL CLAIMS [address] [place] [address] [phone] [id number] DWAYNE GARNER Self - patient is the insured Medical (General) History Medical History History ICD Code Prostate cancer in 2008--surgery as stephen w [place],CVA,Lung disease,renal disease NIDDM Negative colonosc[place] [address] Elaine vargas Surgical History Surgery Date(Month/Year) Radical prosatatectomy in 2006 Tonsillectomy
[2025-04-21 16:09] LABS: Estimated Average Glucose 100 mg/dL; Hemoglobin A1C 89.7647 umol/L; Hemoglobin A1c % 5.1 % (<6.0); Total Hemoglobin (HGBA1C) 2820.7571 umol/L
[2025-04-21 16:13] LABS: Hematocrit 34.4 % (42.0-52.0); Hemoglobin 10.7 g/dl (14.0-18.0); Mean Corpuscular HGB Conc 31.1 g/dl (31.0-36.0); Mean Corpuscular Volume 96.4 fL (80.0-98.0); Mean Platelet Volume 13.9 fL (9.4-12.4); NRBC Pct Auto 0.1 /100WBC (0.0-0.2); PLT CLUMP 1; Red Blood Count 3.57 X10*6/uL (4.60-5.80); Red Cell Distribution Width 20.5 % (11.0-16.0)
[2025-04-21 16:45] LABS: White Blood Count 60.9 X10*3/uL (4.8-10.8)
[2025-04-21 16:46] LABS: Anion Gap 14 (12-20); Blood Urea Nitrogen 27 mg/dL (9-16); Calcium 9.1 mg/dL (8.4-10.2); Carbon Dioxide 24 mmol/L (22-29); Chloride 110 mmol/L (96-108); Estimated Glomerular Filt Rate 33; Lactate Dehydrogenase 759 U/L (118-273); Potassium 4.2 mmol/L (3.3-5.1); Sodium 144 mmol/L (135-145)
[2025-04-21 21:06] LABS: Atypical Lymph Absolute Manual 1.2 x10*3/uL; Atypical Lymphs Percent Manual 2 % (0-6); Band Neutrophils Percent 14 % (3-5); Lymphocytes Absolute Manual 6.1 X10*3/uL (1.2-4.9); Lymphocytes Percent Manual 10 % (20-40); Metamyelocytes Absolute 0.6 X10*3/uL; Metamyelocytes Percent 1 %; Monocytes Absolute Manual 7.3 X10*3/uL (0.1-1.2); Monocytes Percent Manual 12 % (2-11); Myelocytes Absolute 3.7 X10*/uL; Myelocytes Percent 6 %; Neutrophils Percent Manual 55 % (45-73)
[2025-04-21 21:09] LABS: Polychromasia 1+ (0-2) /OIF; RBC Morphology NOTED
[2025-04-21 21:16] LABS: Platelet Estimate SLIGHTLY DECREASED (NORMAL); Platelet Morphology Comment NORMAL
[2025-04-21 21:20] LABS: Platelet Count 119 X10*3/uL (160-400)
== END 2025-04-21 14:31 | disposition home or self-care (01) ==
LOC: HO.LAB 14:30
PROVIDERS: PCP Physician Assistant; Visit Provider Internal Medicine Nephrology
DX: E11.22 Type 2 diabetes mellitus with diabetic chronic kidney disease (principal); N18.30 Chronic kidney disease, stage 3 unspecified; N17.9 Acute kidney failure, unspecified; D72.825 Bandemia
CPT/HCPCS: 36415; 80051; 82310; 82565; 83036; 83615; 84520; 84550; 85007; 85025; 85027

== ENCOUNTER → 2025-04-24 14:51 | Outpatient (BNV) | payer MEDICARE, BC, SELFPAY | PROVIDERS: PCP Internal Medicine; Referring Provider Internal Medicine; Visit Provider Nurse Practitioner Family | DX: D72.829 Elevated white blood cell count, unspecified (principal) | CPT/HCPCS: 99204 ==

== ENCOUNTER 2025-05-07 13:14 | Outpatient (AMB) | payer MEDICARE, BC, SELFPAY ==
--- NOTE | 2025-05-07 13:16 | A.OFFPC_ITS ---
Vital Signs 05/07/25 13:19 Height 5 ft 4 in Weight 63.503 kg BMI 24.0 BP 128/58 L Respiration 16 Pulse 59 Pulse Source Pulse Oximeter Temp 97.2 F Temp Source Temporal Artery Scan Pulse Oximetry (%) 98 Oxygen Delivery Method Room Air Intake Visit Reasons: Cyst Radiation Oncologist Required: No Accompanied by: Son Allergies No Known Allergies Allergy (Verified 05/07/25 13:20) HPI HPI Comments History of Present Illness Details 80-year-old male with history of type 2 diabetes, atrial fibrillation, hyperlipidemia, coronary artery disease, COPD presents to the office today acc ompanied by his son for evaluation. He reports that for the last 3 weeks he has had a cyst in the gluteal cleft that has been increasing in size. It is very painful and affects his ability to lie down flat, walk due to irritation, and sit without leaning forward. He denies any drainage from the area. Has been using Neosporin and heating pads which provide brief relief. He has no prior history of pilonidal cyst. He has been following with Oncology due to significant leukocytosis concerning for CML. Initial testing was indeterminate and will be undergoing further bone marrow testing in the near future though he will need to hold his apixaban and Plavix for a period of time to be determined by Oncology. He was started on hydroxyurea and allopurinol. He did have repeat labs performed which did show improvement in white blood cell count to 30. Continues with fatigue and continues with unintentional weight loss. ROS: General: No fevers, malaise, unintentional weight loss Cardiovascular: No chest pain, palpitations, or leg edema Respiratory: No shortness of breath, wheezing, cough GI: No abdominal pain, nausea, vomiting, diarrhea, constipation, melena, hematochezia Neuro: No headaches, weakness, paresthesias Skin: See HPI EXAM: Constitutional - Awake and Alert, pallor, cachectic, No apparent distress Eyes - PERRL Cardiovascular - S1S2, RRR, No edema Respiratory - Normal lung expansion, Normal respiratory effort, No respiratory distress, CTA bilaterally Extremities - no calf tenderness bilaterally, no swelling Skin - Warm/Dry. Golf ball sized cystic mass of the gluteal cleft with erythema and induration. No fluctuance or drainable abscess. Gluteal cleft sinus noted without drainage. Significant tenderness to palpation Neurological - Alert & oriented x3 Psychological - Appropriate affect COUNT INCLUDES THE [facility] Medical History (Updated 05/07/25 @ 13:40 by RUBÉN Alan) Atrial fibrillation CKD stage 3 secondary to diabetes COPD exacerbation Atrial fibrillation with RVR Sciatica Prediabetes Asbestosis Chronic cough Surgical History History of colonoscopy (~10/27/16) Hx of cardiac cath Social History Household Members: Spouse, Family and Children Housing: House Do you presently have visiting nurse or other home services: No Alcohol intake: current Alcohol intake frequency: holidays/special occasions only Patient Tobacco Use Status: Former Tobacco user Advance Directives Date on File: 09/13/24 service: Yes Current occupational status: retired and disabled Questionnaire Thrive Questionnaire Date Thrive assessed: 11/21/24 CHACE-7 AMB Questionnaire CHACE-7 Date CHACE - 7 assessed: 04/16/25 Source: Developed by Drs. Ezio Dueñas, Sussy Mcpherson, Brendan Mckeon and colleagues, with an educational aicha from [employer]. Physical exam (Primary Care) Vital Signs: Last Vital Signs Temp 97.2 F 05/07/25 13:19 Pulse 59 05/07/25 13:19 Resp 16 05/07/25 13:19 BP 128/58 L 05/07/25 13:19 Pulse Ox 98 05/07/25 13:19 Oxygen Delivery Method Room Air 05/07/25 13:19 BMI result Body Mass Index 24.0 Tobacco/Smoking Status: Tobacco use Status Patient Tobacco Use Status Former Tobacco user 05/07/25 13:23 Thrive Assessment: Date of Thrive Assessment Date Thrive assessed 11/21/24 05/07/25 13:23 Coding Level of Care Code Est Pt Level 4 (47864) Diagnoses Infected pilonidal cyst L05.91 Leukocytosis D72.829 Assessment & Plan Assessment & Plan (1) Infected pilonidal cyst: Code(s): L05.91 - Pilonidal cyst without abscess Category: Medical Plan: Keflex 500mg TID x 7 days with flagyl 500mg TID x 7 days. Continue with warm c ompresses and analgesics as needed. General surgery referral placed (2) Leukocytosis: Code(s): D72.829 - Elevated white blood cell count, unspecified Category: Medical Plan: Improved with WBC 30 but with ongoing suspicion for CML. Oncology notes reviewed. Continue follow with Oncology as scheduled. Orders: Referrals General Surgery Referral L05.91 - Pilonidal cyst without abscess Medications: New metronidazole 500 mg PO Q8H 21 tabs 0RF cephalexin 500 mg PO TID 21 caps 0RF
[2025-05-07 13:19] VITALS: BP 128/58; PULSE 59; RESP 16; TEMP 36.2; O2SAT 98; BMI 24.0
--- OUTSIDE RECORDS SUMMARY | 2025-05-07 15:06 | XMS_ITS | Clinical Summary ---
Author Organization [facility] Facility Address [address] [place] [address] Care Team Providers Care Gambling Dealer Name Role Phone Mode Thompson MD Primary Care Provider [phone] Allergies No known active allergies Medications metFORMIN [...] age to complete this topic Insurance Medicare [facility] Medicare [facility] Care Teams Gambling Dealer Relationship Specialty Start Date End Date Mode Thompson MD [address] [place] [address] [address]IVE [address] [place] PCP - General 11/30/20
== END 2025-05-07 13:51 | disposition home or self-care (01) ==
LOC: HO.HMCHD 13:15
PROVIDERS: PCP Internal Medicine; Visit Provider Physician Assistant
DX: L05.91 Pilonidal cyst without abscess (principal); D72.829 Elevated white blood cell count, unspecified

== ENCOUNTER → 2025-05-07 13:14 | Outpatient (BNVA) | payer MEDICARE, BC, SELFPAY | PROVIDERS: PCP Internal Medicine; Visit Provider Physician Assistant | DX: L05.91 Pilonidal cyst without abscess (principal); D72.829 Elevated white blood cell count, unspecified | CPT/HCPCS: 99212 ==

== ENCOUNTER 2025-05-09 14:44 | Outpatient (AMB) | payer MEDICARE, BC, SELFPAY ==
--- OUTSIDE RECORDS SUMMARY | 2025-05-09 14:46 | XMS_ITS | Clinical Summary ---
Author Organization [facility] Facility Address [address] [place] [address] Care Team Providers Care Sports Internship Name Role Phone Mode Thompson MD Primary Care Provider [phone] Allergies No known active allergies Medications metFORMIN [...] Medicare [facility] Care Teams Sports Internship Relationship Specialty Start Date End Date Mode Thompson MD [address] [place] [address] [address] [place] PCP - General 11/30/20
--- NOTE | 2025-05-09 14:59 | HO.NEPHOV_ITS ---
Vital Signs 05/09/25 15:02 Height 5 ft 7 in Weight 140 lb 6 oz BMI 22.0 BP 100/60 Blood Pressure Location Rt brachial Position Sitting Pulse 78 Pulse Source Pulse Oximeter Pulse Oximetry (%) 95 Oxygen Delivery Method Room Air Intake Visit Reasons: 3wk follow-up w/labs-Conf w/son Acetylene Torch Solderer Required: No Accompanied by: Son Allergies No Known Allergies Allergy (Verified 05/09/25 15:00) HPI Comments Details: I had the pleasure of seeing Ace in follow-up of his worsening chronic kidney disease and a renal cyst. He does not have any dysuria, hematuria or frequency with micturition. His blood sugar control is quite reasonable. He does not have any flank pain, night sweats, weight loss or edema. He has lost some weight. He follows up with PCP regularly. He denies chest pain, shortness of breath, nausea, vomiting, diarrhea. He does not take any not tried anti- inflammatory medications. His blood pressure is well controlled. His WBC has gone up to 61.0 PFSH Medical History (Updated 05/07/25 @ 13:40 by RUBÉN Alan) Atrial fibrillation CKD stage 3 secondary to diabetes COPD exacerbation Atrial fibrillation with RVR Sciatica Prediabetes Asbestosis Chronic cough Surgical History History of colonoscopy (~10/27/16) Hx of cardiac cath Social History Household Members: Spouse, Family and Children Housing: House Do you presently have visiting nurse or other home services: No Alcohol intake: current Alcohol intake frequency: holidays/special occasions only Patient Tobacco Use Status: Former Tobacco user Advance Directives Date on File: 09/13/24 service: Yes Current occupational status: retired and disabled Review of Systems Const All systems reviewed & are unremarkable except as noted in HPI and below Physical Exam Vital Signs: Last Vital Signs Pulse 78 05/09/25 15:02 BP 100/60 05/09/25 15:02 Pulse Ox 95 05/09/25 15:02 Oxygen Delivery Method Room Air 05/09/25 15:02 BMI result Body Mass Index 22.0 Const General: comfortable and no acute distress Orientation/consciousness: patient oriented x3 HEENT Head: Yes normocephalic Mouth: Normal oral and palatal mucosa present Eyes EOM: EOMs intact bilaterally Neck Neck: Yes supple Resp Auscultation: clear to auscultation bilaterally Cardio Jugular venous distension: no JVD Rate: regular rate GI Palpation (GI): Soft to palpation Auscultation: normal bowel sounds General: Yes no CVA tenderness Back/Spine/Pelvis Back: no CVA tenderness Skin General skin exam: no rashes or lesions noted Neuro General: patient oriented x3 and moves all extremities Extrem General: Yes no pedal edema Assessment & Plan Assessment & Plan (1) CKD (chronic kidney disease) stage 3, GFR 30-59 ml/min: Code(s): N18.30 - Chronic kidney disease, stage 3 unspecified Category: Medical Qualifiers: Chronic kidney disease stage 3 subtype: stage 3a (GFR 45-59) Qualified Code(s): N18.31 - Chronic kidney disease, stage 3a Armida Bello has CKD stage 3 likely from vascular disease and age related loss of renal function. His serum creatinine is worse. He has WBC of 61.0 . 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 His uric acid should also be high which put him at risk for urate nephropathy. He is not on any Austin inhibitors. He should be seen by heme and likely needs initiation of hydroxy urea as well as Allopurinol. He should maintain good hydration. F/U labs ordered. All his and sons questions were answered. Orders: Orders Creatinine 6 Weeks N18.31 - Chronic kidney disease, stage 3a Electrolytes 6 Weeks N18.31 - Chronic kidney disease, stage 3a Blood Urea Nitrogen 6 Weeks N18.31 - Chronic kidney disease, stage 3a Coding Level of Care Code Est Pt Level 4 (95746) Diagnoses Stage 3a chronic kidney disease N18.31 Chronic kidney disease stage 3 subtype: stage 3a (GFR 45-59)
[2025-05-09 15:02] VITALS: BP 100/60; PULSE 78; O2SAT 95; BMI 22.0
== END 2025-05-09 15:20 | disposition home or self-care (01) ==
LOC: HO.HKA 14:45
PROVIDERS: PCP Internal Medicine; Visit Provider Internal Medicine Nephrology
DX: N18.31 Chronic kidney disease, stage 3a (principal)
CPT/HCPCS: 99214

== ENCOUNTER → 2025-05-09 14:44 | Outpatient (BNVA) | payer MEDICARE, BC, SELFPAY | PROVIDERS: PCP Internal Medicine; Visit Provider Internal Medicine Nephrology | DX: N18.31 Chronic kidney disease, stage 3a (principal) | CPT/HCPCS: 99212 ==

== ENCOUNTER 2025-05-26 15:01 | Outpatient (AMB) | payer MEDICARE, BC, SELFPAY ==
--- NOTE | 2025-05-26 15:15 | MHC.OFFVIS ---
Vital Signs 05/26/25 15:19 Height 5 ft 7 in Weight 141 lb 8 oz BMI 22.2 BP 136/60 Blood Pressure Location Lt brachial Position Sitting Pulse 61 Intake Visit Reasons: pilonidal cyst Intake Note: Patient is seen in office for evaluation of a pilonidal cyst. 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 Required: No Accompanied by: Family/Other Allergies No Known Allergies Allergy (Verified 05/26/25 15:16) Medication List - Last Reconciled 05/26/25 by Mode Inman MD acetaminophen 1,000 mg (2 x 500 mg) PO Q8H PRN allopurinol 100 mg PO DAILY apixaban (Eliquis) 2.5 mg PO BID atorvastatin 40 mg PO BEDTIME clopidogrel 75 mg PO DAILY empagliflozin (Jardiance) 10 mg PO DAILY fluticasone furoate 200 mcg/actuation (Arnuity Ellipta) 1 inh inhalation DAILY hydroxyurea 500 mg PO USEASDIRECTD metoprolol tartrate 25 mg See Protocol PO BID HPI HPI pilonidal cyst: Details: 80-year-old male referred for question of a pilonidal cyst. He has had this painful cystic induration to the left of the midline of the sacrococcygeal area about a month and a half ago. He was started on antibiotics. The swelling and pain has significantly improved. He says that he is able to sit down comfortably now. He denies any drainage He has a medical problems including previous SD last year. He is on Eliquis. He is being worked up for low platelet count and elevated WBC and is to undergo bone marrow biopsy this week with Dr. Heck. [facility] Medical History (Updated 05/26/25 @ 15:30 by Mode Inman MD) Sacrococcygeal pilonidal cyst Atrial fibrillation CKD stage 3 secondary to diabetes COPD exacerbation Atrial fibrillation with RVR Sciatica Prediabetes Asbestosis Chronic cough Surgical History History of colonoscopy (~10/27/16) Hx of cardiac cath Social History Household Members: Spouse, Family and Children Housing: House Do you presently have visiting nurse or other home services: No Alcohol intake: current Alcohol intake frequency: holidays/special occasions only Patient Tobacco Use Status: Former Tobacco user Advance Directives Date on File: 09/13/24 service: Yes Current occupational status: retired and disabled Review of Systems Const Denies chills and Denies fever(s) Card Denies chest pain and Reports dyspnea on exertion Resp Reports cough and Reports dyspnea on exertion GI Denies abdominal pain Denies dysuria Musc Details: Tingling of lower extremities Physical Exam Vital Signs: Last Vital Signs Pulse 61 05/26/25 15:19 BP 136/60 05/26/25 15:19 BMI result Body Mass Index 22.2 Const Other: Using a cane General: comfortable and no acute distress Resp Effort & Inspection: normal respiratory effort Cardio Rate: regular rate GI Palpation (GI): Soft to palpation, not firm and nontender Back/Spine/Pelvis Other: Faint induration on the left side of the sacrococcygeal area, probably about 1 cm, nontender currently, no fluctuance, no redness, discharge, no obvious midline pits within the gluteal cleft Assessment & Plan Assessment & Plan (1) Sacrococcygeal pilonidal cyst: Code(s): L05.91 - Pilonidal cyst without abscess Category: Medical Plan: He had this tender indurated area on the sacrococcygeal region. Currently, he says that the pain and swelling have improved significantly. He has tender in the area at this time I am uncertain if this represents a sacrococcygeal cyst as there were no midline pits, and that the presence of the sacrococcygeal is presenting at this age is rare I have instructed him to do warm compresses to the area. I told him that he can come directly to me if this starts to bother him again. We can re-evaluate this and see if he will benefit from surgery. He does have other medical problems currently. Coding Level of Care Code New Pt Level 3 (88223) Diagnoses Sacrococcygeal pilonidal cyst L05.91
[2025-05-26 15:19] VITALS: BP 136/60; PULSE 61; BMI 22.2
--- OUTSIDE RECORDS SUMMARY | 2025-05-26 15:30 | XMS_ITS | Clinical Summary ---
Author Organization [facility] Facility Address [address] [place] [address] Care Team Providers Care Venetian Blind Machine Operator Name Role Phone Mode Thompson MD Primary Care Provider [phone] Allergies No known active allergies Medications metFORMIN [...] of 2 - PCV) 1964 Influenza Vaccine (#1) 2025 Hepatitis B Vaccine Aged Out No longe r eligible based on patient's age to complete this topic Insurance Medicare [facility] Medicare [facility] Care Teams Venetian Blind Machine Operator Relationship Specialty Start Date End Date Mode Thompson MD [address] [place] [address] [address] [place] PCP - General 11/30/20
--- OUTSIDE RECORDS SUMMARY | 2025-05-26 15:30 | XMS_ITS | Patient Health Record ---
Author Organization [facility] Address [address] [place] [address] Care Team Providers Care Kalsominer Name Role Phone Mode Thompson MD Primary Care Provider Kirstena Ezio Bagley Unavailable [phone] Reason For Referral No Information Medications Medication SIG (Take, Route, Frequency, Duration) Notes Start Date End Date Status metFORMIN HCl 500 MG 1 tablet with meals Orally Twice a day Active Aspirin Adult Low Dose 81 MG 1 tablet Orally Once a day A ctive Problems Problem Type SNOMED Code ICD Code Onset Dates Problem Status W/U Status Risk Notes Problem [id number] Encounter for screening for malignant neoplasm of colon (Z12.11) Active confirmed Problem Encounter for screening for malignant neoplasm of rectum (Z12.12) Active confirmed Problem [id number] Elevated liver enzymes (R74.8) Active confirmed Problem 20085817 Iron excess (E83.19) Active confirmed Plan Of Treatment Pending Test Test Name Order Date [id number] (A1A) 08/07/2016 MITOCHONDRIAL AB 08/07/2016 SMOOTH MUSCLE ANTIBODIES 08/07/2016 HEMOCHROMATOSIS (C282Y) 08/07/2016 FLUOR. ANTINUCLEAR AB SCREEN (KERWIN) 07/21 Future Test Test Name Order Date COLONOSCOPY 07/29/2016 Insurance Providers Payer Name Payer Address Payer Phone Subscriber Number Group Number Insured Name Patient Relationship to Insured Coverage Start Date Coverage End Date MEDICARE OF [place] [address] [place] [address] [id number] DWAYNE GARNER Self - patient is the insured HMO [employer] [address] [place] [address] [id number] DWAYNE GARNER Self - patient is the insured Medical (General) History Medical History History ICD Code Prostate cancer in 2008--surgery as luceroo w Denies PR,CVA,Lung disease,renal disease NIDDM Negative colonoscoy [place] [address] Elaine vargas Surgical History Surgery Date(Month/Year) Radical prosatatectomy in 2006 Tonsillectomy
== END 2025-05-26 15:31 | disposition home or self-care (01) ==
LOC: HO.HGS 15:02
PROVIDERS: PCP Internal Medicine; Visit Provider Surgery
DX: L05.91 Pilonidal cyst without abscess (principal)
CPT/HCPCS: 99203

== ENCOUNTER → 2025-05-26 15:01 | Outpatient (BNVA) | payer MEDICARE, BC, SELFPAY | PROVIDERS: PCP Internal Medicine; Visit Provider Surgery | DX: L05.91 Pilonidal cyst without abscess (principal); Z79.899 Other long term (current) drug therapy | CPT/HCPCS: 99202 ==

== ENCOUNTER 2025-05-28 11:29 | Day surgery (SDC) | payer MEDICARE, BC, SELFPAY ==
--- OUTSIDE RECORDS SUMMARY | 2025-05-06 14:23 | XMS_ITS | Clinical Summary ---
Author Organization [facility] Facility Address [address] [place] [address] Care Team Providers Care Media Professional Name Role Phone Mode Thompson MD Primary Care Provider [phone] Allergies No known active allergies Medications metFORMIN [...] age to complete this topic Insurance Medicare [facility] Medicare [facility] Care Teams Media Professional Relationship Specialty Start Date End Date Mode Thompson MD [address] [place] [address] DRIVE [address] [place] PCP - General 11/30/20
[2025-05-28] VITALS (15 sets, daily range): BP systolic 124–154; BP diastolic 54–68; PULSE 53–62; RESP 15–20; TEMP 36.1; O2SAT 94–100; BMI 22.1
--- NOTE | ~2025-05-28 | CT_ITS ---
History: Leukocytosis PROCEDURES: 1. Limited preprocedure CT of the pelvis. Permanent images saved in PACS. 2. 11 g bone marrow core biopsy of the left posterior iliac spine 3. 11 g bone marrow aspirate of the left posterior iliac spine CLINICIANS: Sony Chou NP Preprocedural imaging reviewed with Suresh Luo MD MEDICATIONS: -Versed, Fentanyl , and lidocaine 1% SQ -Antibiotics: None -For additional details, please see nursing flowsheet. COMPLICATIONS: None ESTIMATED BLOOD LOSS: < 5 ml CONTRAST: None SPECIMENS: 11 g core placed in formalin. Bone marrow aspirate placed in EDTA and sodium heparin tubes MODERATE SEDATION TIME: 30 min PROCEDURE NOTE: The procedure, risks, benefits, and alternatives were carefully explained to the patient and written informed consent was obtained. The patient was placed prone on the CT table. A timeout was performed. A limited CT of the pelvis was performed to localize posterior iliac spine and choose appropriate needle entry and trajectory. The patient was prepped and draped in usual sterile fashion. The skin, subcutaneous tissues, and periosteum were anesthetized with lidocaine. Under CT guidance, an 11-gauge bone marrow biopsy needle was advanced into the posterior iliac spine, with the tip positioned slightly cephalad. A bone marrow aspirate was performed with much difficulty performing the aspiration even with several repositioning attempts. The specimen was placed in the provided EDTA and sodium heparin tubes. Next, the 11-gauge bone marrow biopsy needle was then advanced into the posterior iliac spine, under CT guidance, with the tip positioned slightly caudal. An 11-gauge core biopsy of the bone marrow was performed and was placed in formalin. The needle was removed. A dry dressing was applied and secured with Tegaderm. There were no immediate complications. The patient was stable after the procedure and was transferred to the post anesthesia care unit. The procedure was done under moderate sedation with a dedicated nurse for monitoring of vital signs. CT/CT biopsy asp core bone marrow Impression: CT-guided bone marrow biopsy and aspirate This procedure was performed by Sony Chou NP and supervised by Suresh Luo MD. Electronically signed by: Suresh Luo MD 05/29/2025 04:57 PM EDT
[2025-05-28 12:51] LABS: INTERNATIONAL NORM RATIO 1.2 (0.9-1.1); Prothrombin Time 13.8 SEC (10.9-12.4)
[2025-05-28 12:53] LABS: Partial Thromboplastin Time 38.8 SEC (26.0-36.8)
== END 2025-05-28 15:48 | disposition home or self-care (01) ==
PROVIDERS: Pathology Anatomic Pathology & Clinical Pathology; Radiology Diagnostic Radiology; Student in an Organized Health Care Education/Training Program; PCP Internal Medicine; Visit Provider Internal Medicine
PROC: (CPT 38221; principal; 2025-05-28 13:00)
DX: D72.829 Elevated white blood cell count, unspecified (principal); D64.9 Anemia, unspecified; D69.6 Thrombocytopenia, unspecified; R05.3 Chronic cough; J61 Pneumoconiosis due to asbestos and other mineral fibers; R53.83 Other fatigue; R63.4 Abnormal weight loss; E11.22 Type 2 diabetes mellitus with diabetic chronic kidney disease; N18.30 Chronic kidney disease, stage 3 unspecified; I48.20 Chronic atrial fibrillation, unspecified; I25.2 Old myocardial infarction; J44.9 Chronic obstructive pulmonary disease, unspecified; I25.10 Atherosclerotic heart disease of native coronary artery without angina pectoris; Z79.01 Long term (current) use of anticoagulants; Z79.899 Other long term (current) drug therapy; Z85.46 Personal history of malignant neoplasm of prostate; Z90.79 Acquired absence of other genital organ(s); Z87.891 Personal history of nicotine dependence
CPT/HCPCS: 20225; 36415; 38222; 77012; 81455; 85610; 85730; 88184; 88185; 88237; 88264; 88305; 88311; 88313; 88341; 88342; 99152; 99153; J1642; J2003; J2250; J2312; J3010

== ENCOUNTER → 2025-05-28 13:07 | Outpatient (BNV) | payer MEDICARE, BC, SELFPAY | PROVIDERS: PCP Internal Medicine | DX: D72.829 Elevated white blood cell count, unspecified (principal) | CPT/HCPCS: 38222; 77012; 99152 ==

== ENCOUNTER 2025-06-02 13:42 | Outpatient (AMB) | payer MEDICARE, BC, SELFPAY ==
[2025-06-02 13:44] VITALS: BP 122/58; PULSE 73; O2SAT 97; BMI 22.1
--- NOTE | 2025-06-02 13:44 | A.OFFVIS_ITS ---
Vital Signs 06/02/25 13:44 Height 5 ft 7 in Weight 141 lb BMI 22.1 BP 122/58 L Blood Pressure Location Rt brachial Position Sitting Pulse 73 Pulse Source Pulse Oximeter Pulse Oximetry (%) 97 Oxygen Delivery Method Room Air Intake Visit Reasons: COPD Allergies No Known Allergies Allergy (Verified 06/02/25 13:51) HPI HPI COPD: Details: 80-year-old gentleman, former 20 pack-year smoker, quit 30 years prior followed for chronic nonproductive cough and underlying pulmonary asbestosis. Patient has intermittent nonproductive cough that only response to systemic glucocorticoids. After the last office visit he was tried on high-dose Arnuity with significantly improved symptom control. [facility] Medical History (Updated 05/29/25 @ 15:07 by Shaunna Ley NP) Sacrococcygeal pilonidal cyst Atrial fibrillation CKD stage 3 secondary to diabetes COPD exacerbation Atrial fibrillation with RVR Sciatica Prediabetes Asbestosis Chronic cough Surgical History History of colonoscopy (~10/27/16) Hx of cardiac cath Social History Household Members: Spouse, Family and Children Housing: House Do you presently have visiting nurse or other home services: No Alcohol intake: current Alcohol intake frequency: holidays/special occasions only Patient Tobacco Use Status: Former Tobacco user Advance Directives Date on File: 09/13/24 service: Yes Current occupational status: retired and disabled Review of Systems Const Denies daytime sleepiness, Denies excessive sweating, Denies fatigue, Denies fever(s), Denies lethargy, Denies malaise, Denies night sweats, Denies snoring and Denies weight loss Eyes Denies blurry vision and Denies itchy eyes ENT Denies nasal congestion, Denies post nasal drip, Denies sinus pain, Denies sinus pressure and Denies other ( Thrush) Card Denies chest pain, Denies pedal edema, Denies dyspnea, Denies orthopnea and Denies paroxysmal nocturnal dyspnea Resp Denies cough, Denies hemoptysis, Denies excessive phlegm production, Denies dyspnea, Denies snoring and Denies wheezing GI Denies abdominal pain and Denies heartburn Musc Denies myalgias, Denies arthralgias and Denies joint swelling Skin/Breast Denies rash Neuro Denies memory loss and Denies seizure-like activity Psych Denies abnormal sleep pattern, Denies anxiety and Denies memory loss Endo Denies excessive sweating, Denies fatigue and Denies heat intolerance Ari/Lymph Denies easy bruising Aller/Immun Denies itchy eyes, Denies seasonal rhinorrhea and Denies wheezing Physical Exam Vital Signs: Last Vital Signs Pulse 73 06/02/25 13:44 BP 122/58 L 06/02/25 13:44 Pulse Ox 97 06/02/25 13:44 Oxygen Delivery Method Room Air 06/02/25 13:44 BMI result Body Mass Index 22.1 Const General: no acute distress and alert Nutritional Appearance: not obese Orientation/consciousness: Other orientation findings ( oriented) HEENT Head: Yes atraumatic Eyes General: appearance normal, both eyes and all related structures Sclerae: sclerae normal EOM: EOMs intact bilaterally Neck Neck: Yes supple Lymphatic: no lymphadenopathy noted Resp Effort & Inspection: normal respiratory effort and no use of accessory muscles Auscultation: clear to auscultation bilaterally Cardio Rate: regular rate Rhythm: regular rhythm Heart sounds: no gallops, no murmurs and no rubs Skin General skin exam: other ( warm) Extrem General: No clubbing, No cyanosis and No edema Assessment & Plan Assessment & Plan (1) Bronchiectasis: Code(s): J47.9 - Bronchiectasis, uncomplicated Category: Medical Plan: Recurrent symptoms improved significantly. Continue to monitor clinically. (2) Chronic cough: Code(s): R05 - Cough Category: Medical Plan: Improved significantly on high-dose Arnuity. Continue current regimen. Coding Level of Care Code Est Pt Level 4 (35013) Diagnoses Bronchiectasis J47.9 Chronic cough R05
--- OUTSIDE RECORDS SUMMARY | 2025-06-02 14:54 | XMS_ITS | Patient Health Record ---
Author Organization [facility] Address [address] [place] [address] Care Team Providers Care Fisher Trot Line Name Role Phone Donna (RETIRED) Mode VAZQUEZ Primary Care Provide r Unavailable Ezio Mendez Unavailable [phone] Reason For Referral No Information Medications Medication SIG (Take, Route, Frequency, Duration) Notes Start Date End Date Status metFORMIN HCl 500 MG 1 tablet with meals Orally Twice a day Active Aspirin Adult Low Dose 81 MG 1 tablet Orally Once a day A ctive Problems Problem Type SNOMED Code ICD Code Onset Dates Problem Status W/U Status Risk Notes Problem 265774700 Encounter for screening for malignant neoplasm of colon (Z12.11) Active confirmed Problem Screening for malignant neoplasm of rectum (864556712) Encounter for screening for malignant neoplasm of rectum (Z12.12) Active confirmed Problem 874635819 Elevated liver enzymes (R74.8) Active confirmed Problem 45461793 Iron excess (E83.19) Active confirmed Plan Of Treatment Pending Test Test Name Order Date EATEO-4-[id number] (A1A) 08/07/2016 MITOCHONDRIAL AB 08/07/2016 SMOOTH MUSCLE ANTIBODIES 08/07/2016 HEMOCHROMATOSIS (C282Y) 08/07/2016 FLUOR. ANTINUCLEAR AB SCREEN (KERWIN) 07/21 Future Test Test Name Order Date COLONOSCOPY 07/29/2016 Insurance Providers Payer Name Payer Address Payer Phone Subscriber Number Group Number Insured Name Patient Relationship to Insured Coverage Start Date Coverage End Date MEDICARE OF [place] [address] [facility] [place] [address] [id number] DWAYNE GARNER Self - patient is the insured HMO [employer] [address] [place] [address] [id number] DWAYNE GARNER Self - patient is the insured Medical (General) History Medical History History ICD Code Prostate cancer in 2008--surgery as stephen carrasco Denies MS,CVA,Lung disease,renal disease NIDDM [place]osc[place] [address] Elaine vargas Surgical History Surgery Date(Month/Year) Radical prosatatectomy in 2006 Tonsillectomy
--- OUTSIDE RECORDS SUMMARY | 2025-06-02 14:54 | XMS_ITS | Clinical Summary ---
Author Organization [facility] Facility Address [address] [place] [id number] Care Team Providers Care Sales And Service Representative Name Role Phone Mode Thompson MD Primary Care Provider [phone] Allergies No known active allergies Medications metFORMIN [...] age to complete this topic Insurance Medicare [facility] Medicare [facility] Care Teams Sales And Service Representative Relationship Specialty Start Date End Date Mode Thompson MD [address] [place] [address] [address] [place] PCP - General 11/30/20
== END 2025-06-02 13:57 | disposition home or self-care (01) ==
LOC: HO.HPS 13:43
PROVIDERS: PCP Internal Medicine; Visit Provider Internal Medicine Pulmonary Disease
DX: J47.9 Bronchiectasis, uncomplicated (principal); R05.9 Cough, unspecified
CPT/HCPCS: 99214

== ENCOUNTER → 2025-06-02 13:42 | Outpatient (BNVA) | payer MEDICARE, BC, SELFPAY | PROVIDERS: PCP Internal Medicine; Visit Provider Internal Medicine Pulmonary Disease | DX: J47.9 Bronchiectasis, uncomplicated (principal); R05.3 Chronic cough; Z79.52 Long term (current) use of systemic steroids | CPT/HCPCS: 99212 ==

== ENCOUNTER 2025-06-14 22:31 | Inpatient (IN) | payer MEDICARE, BC, SELFPAY ==
--- NOTE | ~2025-06-14 | CT_ITS ---
CLINICAL HISTORY: acute hypoxia, PNA vs PULM edema CT chest without contrast Comparison: None provided Findings: The heart size is normal. The visualized thyroid and mediastinum are unremarkable. Dokm-[id number]-eijq-right pleural effusions are present. Multifocal airspace opacities are present in the bilateral lungs these are prominent in the left upper lobe, right middle lobe, and right lower lobe. Consolidative opacities are present in the right lower lobe. Pleural-parenchymal and coarse reticular scarring is present in the right middle lobe. Right multifocal pleural thickening with associated calcification. The visualized upper abdomen demonstrates splenomegaly. No acute fractures. IMPRESSION: Bilateral multifocal airspace opacities and pleural effusions. Findings may represent sequelae of infection, inflammation, pneumonitis in the acute setting. Recommend follow-up evaluation to resolution with particular attention to the left upper lobe opacities, to exclude underlying neoplasm. This document has been electronically signed by: Donavon Gruber III, MD PHD on 06/15/2025 03:39:27
--- NOTE | ~2025-06-14 | XR_ITS ---
EXAMINATION: XR CHEST 1 VIEW HISTORY: hypoxia COMPARISON: Comparison is made with the prior examination dated 06/18/2025. FINDINGS: A single AP portable view of the chest performed at 7:22 AM is submitted. There has been improved aeration of both lower lung zones since the prior study. There are tiny bilateral pleural effusions. There is no pneumothorax or pulmonary vascular congestion. The heart is normal in size. There is degenerative disc disease of the spine. XR/XR chest 1V IMPRESSION: Improved aeration of the bilateral lower lung zones. Tiny bilateral pleural effusions. Electronically signed by: Ezio Alexander MD 06/19/2025 07:37 AM EDT
--- NOTE | ~2025-06-14 | XR_ITS ---
EXAMINATION: XR CHEST 1 VIEW HISTORY: Monitoring of multifocal infiltrates COMPARISON: Comparison is made with the prior examination dated 06/14/2025. FINDINGS: A single AP portable view of the chest performed at 7:13 AM is submitted. There has been worsening of airspace opacities in both lower lung zones with probable mild improvement in the upper lung zones. There are probable small bilateral pleural effusions. No pneumothorax. The heart is normal in size. There is degenerative disc disease of the spine. XR/XR chest 1V IMPRESSION: Worsening airspace opacities in both lower lung zones with improvement in the upper lung zones. Small bilateral pleural effusions. Electronically signed by: Ezio Alexander MD 06/18/2025 07:58 AM EDT
--- NOTE | ~2025-06-14 | XR_ITS ---
CLINICAL HISTORY: PNA, CHF 1 view chest x-ray Comparison: CR/SR - XR CHEST 1 VIEW - 06/19/25 07:22 EDT Findings: There is no focal pneumonia. There is improved aeration relative to the prior exam. No definite evidence of failure currently. There is a persistent small left pleural effusion. Heart size is normal. No acute fracture. IMPRESSION: 1. There is no focal pneumonia. There is improved aeration relative to the prior exam. 2. There is a persistent small left pleural effusion. This document has been electronically signed by: Pedro Brooks MD on 06/22/2025 09:26:42
--- NOTE | ~2025-06-14 | CT_ITS ---
EXAMINATION: CT HEAD WITHOUT CONTRAST CLINICAL INFORMATION: Altered mental status COMPARISON: March 13, 2021 TECHNIQUE: Contiguous axial imaging was performed from the skull base to vertex without intravenous administration of contrast. This CT examination was performed using dose optimization techniques as appropriate, variously including the following: *Automated exposure control *Adjustment of mA and/or kV according to patient size (this includes techniques or standardized protocols for targeted exams where dose is matched to indication/reason for exam; i.e. extremities or head) *Use of iterative reconstruction technique DLP: 1323 mGY*cm FINDINGS: There is no acute ischemic change. Chronic periventricular hypodensities are noted in the deep white matter. There is no intracranial hemorrhage. There is no mass-effect or midline shift. There is mild generalized atrophy. Basal cisterns and ventricles are within normal limits for age/cerebral volume. Orbits are symmetrical and unremarkable. Chronic effusions partially opacified by right greater than left mastoid air cells. Paranasal sinuses are clear. There are no bony abnormalities. CT/CT head/brain wo IV con IMPRESSION: No acute intracranial abnormality. Mild generalized atrophy and chronic small vessel changes. Electronically signed by: Carson Mcclellan MD 06/24/2025 01:40 PM EDT
--- NOTE | ~2025-06-14 | XR_ITS ---
CLINICAL HISTORY: sob, hypoxic 1 view chest x-ray Comparison: 04/14/2025 Findings: Multifocal bilateral consolidation. Question pneumonia, please correlate. Aspiration, hemorrhage in other entities possible. Heart size normal. No bony abnormality. Impression: Multifocal bilateral nonspecific consolidation Question pneumonia, please correlate This document has been electronically signed by: Adrian Crowder MD on 06/14/2025 23:48:22
--- NOTE | 2025-06-14 22:38 | ECG_ITS ---
Test Reason : sob Blood Pressure : */* mmHG Vent. Rate : 89 BPM Atrial Rate : 89 BPM P-R Int : 144 ms QRS Dur : 76 ms QT Int : 346 ms P-R-T Axes : 42 40 85 degrees QTcB Int : 420 ms Normal sinus rhythm Nonspecific ST and T wave abnormality Abnormal ECG When compared with ECG of 20-Nov-2024 18:55, CT interval has increased Referred By: Ying Agustin Electronically Signed By: Ayad Nicohls
[2025-06-14 22:39] VITALS: BP 130/70; BP 147/60; PULSE 105; PULSE 93; RESP 32; TEMP 39.9; O2SAT 65; O2SAT 99; BMI 23.0
[2025-06-14] MEDS: SODIUM CHLORIDE 2001 ML IV (22:50)
[2025-06-14] MEDS: cefEPime HCl/D5W 2 GM/50 ML PIGGYBACK IV (22:51)
--- NOTE | 2025-06-14 22:53 | ED.GENADULT ---
HPI - General Adult General Chief complaint: Altered Mental Status Stated complaint: burning in arms, decreasing mental status Time Seen by Provider: 06/14/25 22:38 Source: EMS Mode of arrival: EMS Limitations: altered mental status History of Present Illness ED Provider: Dr. Ying Agustin HPI narrative: Patient comes to the emergency room via ambulance from home. According to EMS, the patient has been having altered mental status for a few hours now. Patient lives with his son who takes care of him. According to EMS, they were called for until mental status, when they found the patient, his oxygen saturation was in the mid 60s. Patient was put on a non-rebreather and oxygen saturation improved to 95%. Patient is awake and alert but does not remember anything what happened, states he feels well. States that he has no complaints. Patient known to be myelodysplastic syndrome patient, sees Dr. Heck from hematology/oncology. Patient currently taking Vidaza azacitidine. Related Data Previous Rx's ?Medication ?Instructions ?Recorded apixaban 2.5 mg tablet (Eliquis) 2.5 mg PO BID #180 tabs 12/05/24 atorvastatin 40 mg tablet 40 mg PO BEDTIME #90 tabs 12/05/24 clopidogrel 75 mg tablet 75 mg PO DAILY #90 tabs 12/05/24 metoprolol tartrate 25 mg tablet 25 mg PO BID #180 tabs 12/05/24 fluticasone furoate 200 1 inh inhalation DAILY #1 ea 01/27/25 mcg/actuation blister powder for inhalation (Arnuity Ellipta) acetaminophen 500 mg capsule 1,000 mg (2 x 500 mg) PO Q8H PRN 04/14/25 fever or pain #14 caps empagliflozin 10 mg tablet 10 mg PO DAILY #30 tabs 04/18/25 (Jardiance) allopurinol 100 mg tablet 100 mg PO DAILY #30 tabs 05/19/25 ondansetron 8 mg disintegrating 8 mg PO Q8H PRN Nausea And 06/09/25 tablet Vomiting #30 tabs Allergies Allergy/AdvReac Type Severity Reaction Status Date / Time No Known Allergies Allergy Verified 06/14/25 22:39 Review of Systems Review of Systems: Patient has altered mental status, states he has no complaints although he is clearly short of breath Yes Other PMFSH Past Medical History Medical History Sacrococcygeal pilonidal cyst Atrial fibrillation CKD stage 3 secondary to diabetes COPD exacerbation Atrial fibrillation with RVR Sciatica Prediabetes Asbestosis Chronic cough Surgical History History of colonoscopy (~10/27/16) Hx of cardiac cath Social History Social History Household Members: Spouse, Family and Children Housing: House Do you presently have visiting nurse or other home services: No Alcohol intake: current Alcohol intake frequency: holidays/special occasions only Patient Tobacco Use Status: Former Tobacco user Advance Directives: Yes Advance Directives on File: Yes Advance Directives Date on File: 09/13/24 service: Yes Current occupational status: retired and disabled Physical Exam ED Exam Exam: Appearance: Alert. Altered mental status, answers questions but inappropriately. Reports no complaints Eyes: Pupils equal, round and reactive to light. ENT: Pharynx normal. Neck: Normal inspection. Neck supple. No lymph nodes noted. No crepitus CVS: Normal heart rate and rhythm. Pulses normal. Normal S1 and S2 Respiratory: Patient tachypneic, respiratory rate between 30 and 40, bilateral rales or crackles Abdomen: Soft and nontender. No rigidity. No distention. Skin: Skin warm and dry. Normal skin color. Normal skin turgor. Extremities: No lower extremity edema. No Lacerations. No Rash Neuro: Moves all extremities, oriented to name only Psych: A bit anxious, follows commands, cooperative Vital Signs: Vital Signs - 24 hr 06/14/25 22:39 06/14/25 23:42 Temperature 103.8 F H Pulse Rate 93 88 Respiratory Rate 32 H 26 H Blood Pressure 147/60 H 145/66 H Pulse Oximetry 99 93 Oxygen Delivery Method Non-Rebreather Mask Nasal Cannula Oxygen Flow Rate 5 BMI result Body Mass Index 23.0 Course Course Course Narrative: Patient known to have myelodysplastic syndrome, currently undergoing chemotherapy with vidaza azacitidine. Patient feels very warm to touch, patient tachypneic. Empirically, patient is being treated with IV fluids and IV cefepime. All of patient's labs and imaging pending. Medications Administered Generic Name Dose Route Start Last Admin Trade Name Freq PRN Reason Stop Dose Admin Magnesium Sulfate 2 gm in 50 mls @ 25 mls/hr 06/14/25 22:42 06/14/25 23:04 Magnesium Sulfate/H2o IV 06/15/25 00:41 25 mls/hr ONCE ONE Administration Discontinued Medications Generic Name Dose Route Start Last Admin Trade Name Rosaura PRN Reason Stop Dose Admin Cefepime HCl 2 gm in 50 mls @ 100 mls/hr 06/14/25 22:41 06/14/25 23:30 Maxipime IV 06/14/25 23:10 Infused ONCE ONE Infusion Sodium Chloride 2,001 mls @ 2,001 mls/hr 06/14/25 22:44 06/14/25 22:50 Ns 30 ml/kg infuse over 1 hr (2001 ml) 06/14/25 23:43 2,001 mls/hr IV Administration .Q1H STA Methylprednisolone Sodium Succinate 125 mg 06/14/25 22:42 06/14/25 22:51 Methylprednisolone Sod Succ 125 Mg/2 Ml Vial IVPUSH 06/14/25 22:43 125 mg ONCE ONE Administration Medical Decision Making Medical Decision Making [facility] Narrative: My interpretation of EKG: Normal sinus rhythm, heart rate 89, no ST segment depression or elevation, no T-wave inversion, QTC 420 My interpretation of labs: Patient's white blood cell count 35.7, patient is chronic leukocytosis due to myelodysplastic syndrome, hemoglobin and hematocrit at baseline, platelets chronically decreased, today 24, no significant abnormality in patient's venous blood gases, troponin normal, BNP chronically elevated, today 149. Serology negative for influenza COVID RSV. Chest x-ray shows multifocal pneumonia I discussed the above-mentioned with the patient and his son. At this time, now that patient is on oxygen and saturating 95% on 4 L, he is completely awake, alert and oriented x3. Patient is not very happy that I a.m. suggesting that he needs to stay in the hospital. However, he is not O2 dependent and he is requiring quite a bit of oxygen. Patient's son is convincing him to stay. After a long conversation, patient agreeable to stay. I discussed the above-mentioned with Dr. Kuo, patient being admitted Differential Diagnosis Differential Diagnoses: The differential diagnosis associated with the presentation includes (Pneumonia, viral URI, bronchiectasis, asthma exacerbation) Admission/Observation Consideration of admission/observation: Escalation of care including admission/observation considered Consult Healthcare Provider Management of the patient was discussed with: Hospitalist Lab Data MDM Lab Attestation statement: I reviewed the patient's lab results. 06/14/25 22:46 06/14/25 22:46 Labs: Lab Results 06/14/25 06/14/25 06/14/25 Range/Units 22:46 22:55 23:38 WBC 35.7 H* (4.8-10.8) X10*3/uL RBC 2.79 L (4.60-5.80) X10*6/uL Hgb 9.3 L (14.0-18.0) g/dl Hct 29.1 L (42.0-52.0) % MCV 104.3 H (80.0-98.0) fL MCH 33.3 H (27.0-33.0) pg MCHC 32.0 (31.0-36.0) g/dl RDW 21.2 H (11.0-16.0) % Plt Count 24 L (160-400) X10*3/uL MPV Not Reportable Immature Gran % (Auto) Cancelled Neut % (Auto) Cancelled Lymph % (Auto) Cancelled [place] % (Auto) Cancelled Eos % (Auto) Cancelled Baso % (Auto) Cancelled Lymph # (Auto) Cancelled [place] # (Auto) Cancelled Eos # (Auto) Cancelled Baso # (Auto) Cancelled Abs Immat Gran (auto) Cancelled Absolute Neuts (auto) Cancelled Absolute Nucleated RBC 0.030 H (0.0-0.012) X10*3/uL Nucleated RBC % (auto) 0.1 (0.0-0.2) /100WBC Neutrophils % (Manual) 82 H (45-73) % Band Neutrophils % 5 (3-5) % Lymphocytes % (Manual) 2 L (20-40) % Monocytes % (Manual) 11 (2-11) % Abs Neuts (Manual) 31.1 H (2.0-8.3) X10*3/uL Lymphocytes # (Manual) 0.7 L (1.2-4.9) X10*3/uL Monocytes # (Manual) 3.9 H (0.1-1.2) X10*3/uL Dohle Bodies PRESENT Platelet Estimate DECREASED (NORMAL) Plt Morphology Comment NORMAL RBC Morphology NOTED Polychromasia 1+ (0-2) /OIF Microcytosis 1+ (5-14) /OIF Macrocytosis 1+ (5-14) /OIF Spherocytes 1+ (0-2) /OIF Ovalocytes 1+ (5-14) /OIF Smear Tech's Comments MANUAL DIFF PT 14.4 H (10.9-12.4) SEC INR 1.3 H (0.9-1.1) VBG pH 7.38 (7.32-7.43) VBG pCO2 28 mmHg VBG pO2 70 mmHg VBG HCO3 17 L (22-26) mmol/L VBG O2 Saturation 93.0 % VBG Base Excess -6.2 mmol/L Sodium 142 (135-145) mmol/L Potassium 4.5 (3.3-5.1) mmol/L Chloride 115 H (96-108) mmol/L Carbon Dioxide 17 L (22-29) mmol/L Anion Gap 15 (12-20) BUN 51 H (9-16) mg/dL Creatinine 1.82 H (0.5-1.4) mg/dL Estim Creat Clear Calc 29.2 Estimated GFR 36 Random Glucose 152 H (60-115) mg/dL Lactic Acid 1.7 (0.5-2.0) mmol/L Calcium 8.5 (8.4-10.2) mg/dL Magnesium 1.8 (1.6-2.6) mg/dL Total Bilirubin 0.8 (0.0-1.0) mg/dL Direct Bilirubin 0.4 (0.0-0.5) mg/dL AST 45 H (5-37) U/L ALT 40 (0-40) U/L Alkaline Phosphatase 195 H (39-117) U/L Troponin I High Sens 14.0 (<3.5-35.0) ng/L B-Natriuretic Peptide 894 H (<100) pg/mL Total Protein 6.5 (6.5-8.0) g/dL Albumin 3.6 (3.5-5.0) g/dL Urine Color Yellow Urine Appearance Cloudy Urine pH 5.0 (5.0-9.0) Ur Specific [place] 1.020 (1.005-1.025) Urine Protein 30 (1+) H (Neg-Trace) mg/dL Urine Glucose (UA) >=1000 H (Negative) mg/dL Urine Ketones Negative (Negative) mg/dL Urine Blood Trace H (Negative) Urine Nitrite Negative (Negative) Ur Leukocyte Esterase Negative (Negative) Influenza Type A (PCR) NEGATIVE (Negative) Influenza Type B (PCR) NEGATIVE (Negative) RSV RNA Qual (PCR) NEGATIVE (Negative) SARS-CoV-2 RNA (RT-PCR) NEGATIVE (Negative) Independent Interpretation I performed an independent interpretation of an: EKG and Plain X-Ray Radiology Impression Discussion of test interpretation with radiology: I have reviewed the radiologist's reading. Radiologist Impression: Multifocal bilateral consolidation. Question pneumonia, please correlate. Aspiration, hemorrhage in other entities possible. Heart size normal. No bony abnormality. Impression: Multifocal bilateral nonspecific consolidation Question pneumonia, please correlate Independent Historian Clinical information obtained from an independent historian. History obtained from or confirmed by: EMS and Other (Patient's son) Critical Care Time Critical Care Time Critical Care Time: Yes Total Critical Care Time: 60 Attestation: I have personally provided critical care time. Time includes review of lab data, radiology results, discussion with consultants, and monitoring for potential decompensation. Intervention performed as documented. Discharge Plan Discharge Clinical Impression: Multifocal pneumonia, Hypoxia Patient Disposition: Admitted As Inpatient Print Language: Portuguese
[2025-06-14 22:58] LABS: Hematocrit 29.1 % (42.0-52.0); Hemoglobin 9.3 g/dl (14.0-18.0); Mean Corpuscular HGB Conc 32.0 g/dl (31.0-36.0); Mean Corpuscular Hemoglobin 33.3 pg (27.0-33.0); Mean Corpuscular Volume 104.3 fL (80.0-98.0); NRBC Abs Auto 0.030 X10*3/uL (0.0-0.012); NRBC Pct Auto 0.1 /100WBC (0.0-0.2); Red Blood Count 2.79 X10*6/uL (4.60-5.80)
[2025-06-14 22:59] LABS: Venous Blood Gas Refer to POC result
[2025-06-14 23:00] LABS: Platelet Count 24 X10*3/uL (160-400)
[2025-06-14 23:01] LABS: VBG HCO3 17 mmol/L (22-26); VBG O2 % Saturation 93.0 %
[2025-06-14] MEDS: Magnesium Sulfate/H2O 2 GM/50 ML PIGGYBACK IV (23:04)
[2025-06-14 23:05] LABS: INTERNATIONAL NORM RATIO 1.3 (0.9-1.1); Prothrombin Time 14.4 SEC (10.9-12.4); White Blood Count 35.7 X10*3/uL (4.8-10.8)
[2025-06-14 23:14] LABS: Alanine Aminotransferase 40 U/L (0-40); Albumin Level 3.6 g/dL (3.5-5.0); Alkaline Phosphatase 195 U/L (39-117); Anion Gap 15 (12-20); Aspartate Amino Transferase 45 U/L (5-37); Blood Urea Nitrogen 51 mg/dL (9-16); Calcium 8.5 mg/dL (8.4-10.2); Carbon Dioxide 17 mmol/L (22-29); Chloride 115 mmol/L (96-108); Creatinine Clr Calc Pharmacy 29.2; Estimated Glomerular Filt Rate 36; Magnesium 1.8 mg/dL (1.6-2.6); Potassium 4.5 mmol/L (3.3-5.1); Sodium 142 mmol/L (135-145); Total Protein 6.5 g/dL (6.5-8.0)
[2025-06-14 23:17] LABS: B Type Natriuretic Peptide 894 pg/mL (<100)
[2025-06-14 23:21] LABS: Troponin-I High Sensitivity 14.0 ng/L (<3.5-35.0)
[2025-06-14 23:34] LABS: Band Neutrophils Percent 5 % (3-5); Lymphocytes Absolute Manual 0.7 X10*3/uL (1.2-4.9); Lymphocytes Percent Manual 2 % (20-40); Monocytes Absolute Manual 3.9 X10*3/uL (0.1-1.2); Monocytes Percent Manual 11 % (2-11); Neutrophils Absolute Manual 31.1 X10*3/uL (2.0-8.3); Neutrophils Percent Manual 82 % (45-73); Resp Syncy Virus RNA Qual PCR NEGATIVE (Negative); SARS COV2 PCR INHOUSE NEGATIVE (Negative)
[2025-06-14 23:36] LABS: Dohle Bodies PRESENT; Ovalocytes 1+ (5-14) /OIF; Polychromasia 1+ (0-2) /OIF; RBC Morphology NOTED
[2025-06-14 23:39] LABS: Macrocytosis 1+ (5-14) /OIF; Microcytosis 1+ (5-14) /OIF; Spherocytes 1+ (0-2) /OIF
[2025-06-14 23:42] VITALS: BP 145/66; PULSE 88; RESP 26; O2SAT 93
[2025-06-14 23:54] LABS: Appearance Urine Cloudy; Glucose Urine UA >=1000 mg/dL (Negative); PH 5.0 (5.0-9.0); Specific Gravity - Urine 1.020 (1.005-1.025); UMIC TRIGGER UACC YES
[2025-06-15] VITALS (11 sets, daily range): BP systolic 102–148; BP diastolic 50–70; PULSE 52–88; RESP 18–33; TEMP 36.1–38.7; O2SAT 92–98; BMI 26.6
--- NOTE | 2025-06-15 00:26 | PM.IMHP ---
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 Per pt's son at bedside, pt was not altered or lethargic. EMS arrived and noted patient's pulse ox was 65% on room air,. Patient received a non-rebreather and sats improved to the mid 90s., within the last week patient did start the new chemotherapeutic agent within the last week. Patient has been off his Eliquis due to low platelet count. Pt does meet criteria for sepsis with noted hypoxia, fever 103.8, and leukocytosis (aware of MDS cancer DX). Chest x-ray done in the ED noted multi focal bilateral nonspecific consolidation highly suspicious for pneumonia. Aspiration also a possibility. Reviewed this with patient and son and they denied that patient is having issues with eating or taking medications or drinking fluids. Patient has a nonproductive cough. BNP also elevated, 894 with known hx of HFrEF 45-50%. Last complete echo 09/10/24. Pt currently in NSR, no complaints of chest pain. Temp max 103.8. BC X2 drawn. No tachycardia or hypotension. Patient received 2 g of cefepime IV. Patient also started on methylprednisolone 125 mg IV x1. Patient also received 2 g magnesium IV x1. Patient currently on 5 L nasal cannula, alert and orientated but pale in presentation. H&H 9.3 and 29.1. Platelets 24,000. White count 35. VBG , 7.38 , 28, 70 17 on oxygen. Patient does not use oxygen at home currently. Patient was not happy about being admitted to the hospital. Patient's son who is also the healthcare proxy is at his side. Reassurance provided. Patient is agreeable to staying. Son is also caring for patient's spouse who has Alzheimer's disease and is part of the pace program. Son is open to talking with case management to plan for current and future needs as son will be returning to work as a teacher once the summer ends. Review of Systems Review of Systems: Patient offers no current chest pain, shortness of breath at rest noting he is on 5 L of O2 via nasal cannula. Patient denies any abdominal pain, nausea or vomiting. Patient denies any headache or visual changes. Patient is offering mild back pain related to being on the stretcher. Patient does state as well as the son that his pilonidal cyst has healed from March of 2025. 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 Atrial fibrillation CKD stage 3 secondary to diabetes COPD exacerbation Atrial fibrillation with RVR Sciatica Prediabetes Asbestosis Chronic cough Cognitive capacity: Currently alert and orientated x3 Functional capacity: uses cane/walker Surgical History (Updated 06/15/25 @ 01:25 by RICHIE Courtney) Stented coronary artery S/P cardiac cath History of colonoscopy (~10/27/16) Hx of cardiac cath Social History Household Members: Spouse, Family and Children Housing: House Do you presently have visiting nurse or other home services: No Alcohol intake: current Alcohol intake frequency: holidays/special occasions only Patient Tobacco Use Status: Former Tobacco user Smoked in Last 30 Days: No Use of substances other than those prescribed or required for medical reasons: No Advance Directives: Yes Advance Directives on File: Yes Advance Directives Date on File: 09/13/24 service: Yes Current occupational status: retired and disabled Ebola Risk: Travel/Contact With Anyone From Affected Area/s: No Has Patient Experienced Ebola Symptoms: No Meds Allergies Allergy/AdvReac Type Severity Reaction Status Date / Time No Known Allergies Allergy Verified 06/14/25 22:39 Active Medications: Current Medications Acetaminophen (Acetaminophen 325 Mg Tablet) 650 mg PO Q6H PRN PRN Reason: Pain, Mild 1-3,fever,headache Albuterol/Ipratropium (Albuterol/Iprat 2.5/0.5mg 3 Ml Ampul.Neb) 3 ml INHALE RQ4H PRN PRN Reason: Shortness of Breath/Wheezing Calcium Carbonate (Calcium Carbonate 750 Mg Tab.Chew) 750 mg PO Q4H PRN PRN Reason: Heartburn Magnesium Sulfate (Magnesium Sulfate/H2o) 2 gm in 50 mls @ 25 mls/hr IV ONCE ONE Stop: 06/15/25 00:41 Last Admin: 06/14/25 23:04 Dose: 25 mls/hr Magnesium Hydroxide (Milk Of Magnesia 30 Ml Oral.Susp) 30 ml PO DAILY PRN PRN Reason: Constipation Melatonin (Melatonin 3 Mg Tablet) 6 mg PO BEDTIME PRN PRN Reason: Insomnia Ondansetron HCl (Ondansetron Hcl 4 Mg/2 Ml Vial) 4 mg IVPUSH Q8H PRN PRN Reason: Nausea and Vomiting Polyethylene Glycol (Polyethylene Glycol 3350 17 Gm Powd.Pack) 17 gm PO DAILY PRN PRN Reason: Constipation Senna (Sennosides 8.6 Mg Tablet) 17.2 mg PO BEDTIME RASHAD Sodium Chloride (0.9 % Sodium Chloride Flush 3 Ml Syringe) 3 ml IVFLUSH QSHIFT RASHAD Physical Exam Vital Signs and Narrative: Vital Signs: Last Vital Signs Temp 103.8 F H 06/14/25 22:39 Pulse 88 06/14/25 23:42 Resp 26 H 06/14/25 23:42 BP 145/66 H 06/14/25 23:42 Pulse Ox 93 06/14/25 23:42 O2 Del Method Nasal Cannula 06/14/25 23:42 O2 Flow Rate 5 06/14/25 23:42 BMI result Body Mass Index 23.0 Alert and orientated X3, offers unhappiness about being admitted, answers questions when asked, able to follow commands and protect airway Neuro: CN II-X11 intact, no deficits, visual acuity intact EYES: PERRLA, EOM intact, sclerae nonicteric, conjunctiva pink ENT: hearing intact, no obvious issues with swallowing, uvula midline, lips moist, nares patent no epistaxis Cardiac: S1 S2 RRR, no murmur, no JVD, no edema in Lower ext Pulmonary: lungs diminished bilaterally Abdominal: BS active in all 4 quadrants, no guarding, tenderness, rebounding MSK: strength 3-4/5 upper and lower extremities : no CVA tenderness no bladder distension Extremities: no edema in lower extremities, PT and DP pulses palpable +2 Psych: mood stable, judgement and insight fair Skin: Intact, no evidence of pilonidal cyst Results Labs 06/14/25 22:46 06/14/25 22:46 Labs: Laboratory Results - last 24 hr 06/14/25 06/14/25 06/14/25 22:46 22:55 23:38 MCV 104.3 H MCH 33.3 H MCHC 32.0 RDW 21.2 H Plt Count 24 L MPV Not Reportable Immature Gran % (Auto) Cancelled Neut % (Auto) Cancelled Lymph % (Auto) Cancelled [place] % (Auto) Cancelled Eos % (Auto) Cancelled Baso % (Auto) Cancelled Lymph # (Auto) Cancelled [place] # (Auto) Cancelled Eos # (Auto) Cancelled Baso # (Auto) Cancelled Abs Immat Gran (auto) Cancelled Absolute Neuts (auto) Cancelled Absolute Nucleated RBC 0.030 H Nucleated RBC % (auto) 0.1 Neutrophils % (Manual) 82 H Band Neutrophils % 5 Lymphocytes % (Manual) 2 L Monocytes % (Manual) 11 Abs Neuts (Manual) 31.1 H Lymphocytes # (Manual) 0.7 L Monocytes # (Manual) 3.9 H Dohle Bodies PRESENT Platelet Estimate DECREASED Plt Morphology Comment NORMAL RBC Morphology NOTED Polychromasia 1+ (0-2) Microcytosis 1+ (5-14) Macrocytosis 1+ (5-14) Spherocytes 1+ (0-2) Ovalocytes 1+ (5-14) Smear Tech's Comments MANUAL DIFF PT 14.4 H INR 1.3 H VBG pH 7.38 VBG pCO2 28 VBG pO2 70 VBG HCO3 17 L VBG O2 Saturation 93.0 VBG Base Excess -6.2 Anion Gap 15 Estim Creat Clear Calc 29.2 Estimated GFR 36 Random Glucose 152 H Lactic Acid 1.7 Calcium 8.5 Magnesium 1.8 Total Bilirubin 0.8 Direct Bilirubin 0.4 AST 45 H ALT 40 Alkaline Phosphatase 195 H B-Natriuretic Peptide 894 H Total Protein 6.5 Albumin 3.6 Urine Color Yellow Urine Appearance Cloudy Urine pH 5.0 Ur Specific [place] 1.020 Urine Protein 30 (1+) H Urine Glucose (UA) >=1000 H Urine Ketones Negative Urine Blood Trace H Urine Nitrite Negative Ur Leukocyte Esterase Negative Urine RBC 0-2 Urine WBC 0-5 Ur Squamous Epith Cells 0-2 Urine Bacteria Trace Hyaline Casts 0-2 Urine Yeast Present Influenza Type A (PCR) NEGATIVE Influenza Type B (PCR) NEGATIVE RSV RNA Qual (PCR) NEGATIVE SARS-CoV-2 RNA (RT-PCR) NEGATIVE ECG Attestation: I personally reviewed and interpreted this ECG as follows: (Normal sinus rhythm Nonspecific ST and T wave abnormality) Prior ECG tracings: available for review Imaging Radiologist's Impressions: Chest x-ray Multifocal bilateral nonspecific consolidation, question of pneumonia Assessment and Plan (1) Hypoxia: Status: Acute Plan Patient is an 80-year-old male with past medical history hypertension, hyperlipidemia, gout, atrial fibrillation on Eliquis, prediabetes, chronic kidney disease stage 3, sciatica, asbestosis, COPD, prostate cancer with prostatectomy, non STEMI, CAD,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 Patient had just completed his 1st week of treatment. Patient found to have evidence of pneumonia and possible heart failure exacerbation and is being admitted. Pt meets criteria for sepsis on admission. Sepsis secondary to PNA Pt febrile max T 103.8, hypoxic with leukocytosis noting current cancer dx and tx BC X2 pending, UA neg for UTI Pt currently on Vanco and Zosyn AMS resolved, no delirium or encephalopathy on admission FLuid resuscitaiton completed in ED Tylenol X1 for fever, ice packs prn Acute hypoxic respiratory failure secondary to pneumonia/ heart failure exacerbation Oxygen via nasal cannula humidified, wean as tolerated CT chest without IV contrast pending (differentiate PNA from PULM EDEMA) Pumonary consult in AM Duo neb, MG, Methylprednisolone in ED, holding off on continuing steroids at this time (reviewed with hospitalist attending Dr. Kuo) Lasix IV X1 If no improvement, consider D-dimer and if elevated, patient will need V/Q scan as he can not receive contrast due to renal function Pneumonia, possible aspiration Patient started on cefepime, changed to vanco and zosyn (renal dose adj) - (reviewed with attending Dr. uKo) Viral studies negative for FLU, COVID, RSV Aspiration precautions in place Duo nebs p.r.n. Antitussives Speech therapy eval for swallowing ordered Patient did pass informal bedside swallow Oxygen via nasal cannula, wean as tolerated Heart failure exacerbation BNP 894 Echo ordered Patient does not use oxygen at home, currently on 5 L nasal cannula humidified Lasix IV X1 in ED Daily wts, Fluid allowance 1500, strict I/Os, low salt diet 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 on new chemotherapeutic agent (vidaza azacitidine) started 06/06/2025 Patient no longer on Hydrea Leukocytosis, 35.7, no bandemia (previous WBC 60) Anemia 9.3/29.1, no indication for transfusion Thrombocytopenia 24 - eliquis remains on hold Oncology outpatient follow up Chronic kidney disease stage 3 B Creatinine clearance 29 Avoid nephrotoxic meds Avoid hypotension Monitor I's and O's AFib normally on Eliquis Due to low platelet count since starting cabcer dx/chemotherapy, Eliquis has been on hold Continue to hold Eliquis as platelets are 24,000 Currently sinus rhythm Continue metoprolol as blood pressure is stable Continue telemetry DVT prophylaxis: Held due to low platelet count Med rec pending Full Code status, reviewed with both patient and healthcare proxy Quality Stroke Does the patient have a stroke diagnosis?: No Reason for No Anti-thrombotic by Day Two: Contraindicated (low PLT count ) VTE Prior VTE?: No VTE Risk Level:: Medical - moderate - high VTE Device Contraindication: N/A - Device Ordered VTE Drug Contraindication: Treatment Not Indicated
[2025-06-15] MEDS: Furosemide 20 MG/2 ML VIAL IVPUSH (00:48)
--- OUTSIDE RECORDS SUMMARY | 2025-06-15 02:07 | XMS_ITS | Clinical Summary ---
Author Organization [facility] Facility Address [address] [place] [id number] Care Team Providers Care Injection Molding Process Technician Name Role Phone Mode Thompson MD Primary Care Provider [phone] Allergies No known active allergies Medications metFORMIN [...] age to complete this topic Insurance Medicare [facility] Medicare [facility] Care Teams Injection Molding Process Technician Relationship Specialty Start Date End Date Mode Thompson MD [address] [place] [address] [id number] [place] PCP - General 11/30/20
[2025-06-15] MEDS: vancomycin HCL 1,000 MG, vancomycin HCL 750 MG in 0.9 % Sodium Chloride 500 ML 267.5 MG IV (02:38)
--- NOTE | 2025-06-15 02:52 | PC.NURSE ---
Pt A&Ox3, denies any pain, from home, ambulates with cane at home. Per son at bedside Pt was told he cannot have Tylenol and was told by oncology, Per [employer] Jarrell liver function stable, we can give one dose of Tylenol, no NSAIDS due to low plt count (reviewed with Dr Kuo) Bilateral 18G IVs. Male purewick in place. Pt received PO Ativan, swallow pills whole. Pt repositioned, redness noted to left upper buttock, no open areas.
[2025-06-15 04:14] LABS: Glucose, Whole Blood 181 mg/dL (60-115)
--- NOTE | 2025-06-15 07:07 | PHA.PROG ---
Admission Date/Time: June 15, 2025 00:04 Indication: Sepsis Weight in k.1 kg Adjusted body weight in Kg: [place] body weight in Kg: Obesity Dosing Indication % IBW: Serum Creatinine - Last 168 Hours 06/14/25 22:46 Creatinine 1.82 H Estimated CrCl and GFR - Last 168 Hours 06/14/25 22:46 Estim Creat Clear Calc 29.2 Estimated GFR 36 Vancomycin Loading Dose: 1750mg x 1 Current Vancomycin Dosing Regimen: 750mg Q24H Vancomycin Monitoring using AUC goal of 400 - 600 range with trough as surrogate marker: 456 mg/L Date and Time for next Vancomycin Level to be drawn: 06/16 @2100 Pharmacist Comments on Vancomycin Plan: Predicted trough of 15.2 mg/L Vancomycin dosing will take advantage of [employer] as a clinical decision support tool that uses Bayesian modeling to calculate individual patient's pharmacokinetic parameters and forecast the patient's drug concentration time course with the target goal AUC 24 range of 400 - 600 mg/L/hr.
[2025-06-15 07:12] LABS: Hemoglobin 8.7 g/dl (14.0-18.0); NRBC Abs Auto 0.000 X10*3/uL (0.0-0.012); NRBC Pct Auto 0.0 /100WBC (0.0-0.2); SCAN SMEAR FLAG 1
[2025-06-15 07:14] LABS: Hematocrit 28.0 % (42.0-52.0); Imm Gran Abs Auto 1.42 X10*3/uL (0.00-0.03); Imm Gran Pct Auto 4.2 % (0.0-0.4); Lymphocytes Absolute Auto 1.2 X10*3/uL (1.2-4.9); MANUAL DIFF FLAG SCAN; Mean Corpuscular HGB Conc 31.1 g/dl (31.0-36.0); Mean Corpuscular Hemoglobin 33.0 pg (27.0-33.0); Mean Corpuscular Volume 106.1 fL (80.0-98.0); Red Blood Count 2.64 X10*6/uL (4.60-5.80)
[2025-06-15 07:22] LABS: Alanine Aminotransferase 38 U/L (0-40); Albumin Level 3.4 g/dL (3.5-5.0); Alkaline Phosphatase 161 U/L (39-117); Anion Gap 13 (12-20); Aspartate Amino Transferase 35 U/L (5-37); Blood Urea Nitrogen 53 mg/dL (9-16); Calcium 8.0 mg/dL (8.4-10.2); Carbon Dioxide 16 mmol/L (22-29); Chloride 116 mmol/L (96-108); Creatinine Clr Calc Pharmacy 29.9; Estimated Glomerular Filt Rate 37; Potassium 5.1 mmol/L (3.3-5.1); Sodium 140 mmol/L (135-145); Total Protein 6.0 g/dL (6.5-8.0)
[2025-06-15 07:29] LABS: PLT ABN DIST 1
[2025-06-15 07:36] LABS: Platelet Count 17 X10*3/uL (160-400); White Blood Count 33.7 X10*3/uL (4.8-10.8)
[2025-06-15] MEDS: 0.9 % Sodium Chloride Flush 3 ML SYRINGE IVFLUSH ×3 (08:23→23:22)
--- NOTE | 2025-06-15 09:35 | MHC.CM.PN ---
IMM 06/15/25, Pt lives with his son, PCP confirmed: Kobe Christian MD. HCP is on file and confirmed: Laura. Pt. does not use home health services or DME. His son will transport him home at DC. DCP: home, self care, CM to follow for DC needs.
[2025-06-15 09:56] LABS: MRSA Nasal PCR NEGATIVE (Negative); SA Nasal PCR NEGATIVE (Negative)
--- NOTE | 2025-06-15 10:36 | PHA.MEDREC ---
Addendum entered by Matt Ken [facility] 06/15/25 14:40: Dr. Todd was made aware of the omission of eliquis and plavix from med list. Addendum entered by Matt Ken [facility] 06/15/25 14:36: MED REC REVIEWED BY [facility] Addendum entered by Francesco Capps 06/15/25 14:27: Son Duc believes patient has been off of anticoag (eliquis, clopidogrel) for about 2 weeks. There is no official date as of yet to restart anticoag. The plan was to get labs drawn Monday and to have a meeting with oncologist regarding next steps. Addendum entered by Matt Ken [facility] 06/15/25 11:54: MED REC REVIEWED BY [facility] Original Note: Pharmacy Consult ? Medication Reconciliation Pharmacy has completed the medication reconciliation. Spoke with son (Duc) over the phone to confirm. Eliquis (2.5 mg) and clopidogrel are currently on hold d/t chemo. He is using Arnuity prn. He has tramadol as needed for pain but has not used recently. He is no longer taking hydroxyurea, metformin, and furosemide. He received Vidaza 06/09-06/13.
--- NOTE | 2025-06-15 12:31 | PM.CNPUL ---
History of Present Illness History of Present Illness Consult date: 06/15/25 Chief complaint: Hypoxia, abnormal CT chest. 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 Patient requires supplemental oxygen at 3 L to maintain normal oximetry. His CT chest demonstrated multifocal infiltrates with left-sided effusion. He was started on empiric antibiotics and admitted to telemetry service. Review of Systems Constitutional: Constitutional: Denies daytime sleepiness, Denies excessive sweating, Reports fatigue, Reports fever(s), Denies lethargy, Reports malaise, Denies night sweats, Denies snoring and Denies weight loss Eyes: Eyes: Denies blurry vision and Denies itchy eyes ENT: Denies nasal congestion, Denies post nasal drip, Denies sinus pain, Denies sinus pressure and Denies other ( Thrush) Cardiovascular: Cardiovascular: Denies chest pain, Denies pedal edema, Reports dyspnea, Reports dyspnea on exertion, Reports orthopnea and Denies paroxysmal nocturnal dyspnea Respiratory: Respiratory: Denies cough, Denies hemoptysis, Denies excessive phlegm production, Reports dyspnea, Reports dyspnea on exertion, Denies snoring and Denies wheezing Gastrointestinal: Gastrointestinal: Denies abdominal pain and Denies heartburn Musculoskeletal: Musculoskeletal: Denies myalgias, Denies arthralgias and Denies joint swelling Integumentary/Breasts: Skin/Breast: Denies rash Neurologic: Denies memory loss and Denies seizure-like activity Psychiatric: Psychiatric: Denies abnormal sleep pattern, Denies anxiety and Denies memory loss Endocrine: Endocrine: Denies excessive sweating, Reports fatigue and Denies heat intolerance Hematologic/Lymphatic: Hematologic/Lymphatic: Denies easy bruising Allergic/Immunologic: Allergic/Immunologic: Denies itchy eyes, Denies seasonal rhinorrhea and Denies wheezing PMFSH Past Medical History Medical History (Updated 06/15/25 @ 12:35 by Dave Napier MD) Heart failure with reduced ejection fraction Thrombocytopenia Diabetes 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 Atrial fibrillation CKD stage 3 secondary to diabetes COPD exacerbation Atrial fibrillation with RVR Sciatica Prediabetes Asbestosis Chronic cough Surgical History Surgical History (Updated 06/15/25 @ 01:25 by RICHIE Courtney) Stented coronary artery S/P cardiac cath History of colonoscopy (~10/27/16) Hx of cardiac cath Social History Social History Household Members: Unknown / Unable to assess Housing: Unknown / Unable to assess Do you presently have visiting nurse or other home services: No Alcohol intake: current Alcohol intake frequency: holidays/special occasions only Patient Tobacco Use Status: Former Tobacco user Smoked in Last 30 Days: No Patient Interested in Nicotine Replacement: No Patient Given Instructions on How to Stop Smoking: No Second Hand Smoke Exposure: No Use of substances other than those prescribed or required for medical reasons: No Currently Displaying Signs/Symptoms of Drug Intoxication Withdrawal: No Have you been hit, kicked, punched, or otherwise hurt by someone within the past year? If so, by whom?: No Do you feel safe in your current relationship?: No Current Relationship Is there a partner from a previous relationship who is making you feel unsafe now?: No Are you made to feel afraid or neglected: No Advance Directives: Yes Advance Directives on File: Yes Advance Directives Date on File: 09/13/24 Do you have a plan to hurt others: No Plan Recently lost weight without trying: No Nutrition Risks: On aspiration precautions Poor oral hygiene: No service: No Current occupational status: retired and disabled Travel History Ebola Risk: Travel/Contact With Anyone From Affected Area/s: No Has Patient Experienced Ebola Symptoms: No Meds Allergies Allergy/AdvReac Type Severity Reaction Status Date / Time No Known Allergies Allergy Verified 06/14/25 22:39 Active Medications: Current Medications Acetaminophen (Acetaminophen 325 Mg Tablet) 650 mg PO Q6H PRN PRN Reason: Pain, Mild 1-3,fever,headache Last Admin: 06/15/25 02:16 Dose: 650 mg Albuterol/Ipratropium (Albuterol/Iprat 2.5/0.5mg 3 Ml Ampul.Neb) 3 ml INHALE RQ4H PRN PRN Reason: Shortness of Breath/Wheezing Allopurinol (Allopurinol 100 Mg Tablet) 100 mg PO DAILY RASHAD Atorvastatin Calcium (Atorvastatin Calcium 40 Mg Tablet) 40 mg PO BEDTIME RASHAD Calcium Carbonate (Calcium Carbonate 750 Mg Tab.Chew) 750 mg PO Q4H PRN PRN Reason: Heartburn Guaifenesin (Guaifenesin 200 Mg/10 Ml 10 Ml Liquid) 10 ml PO Q4H PRN PRN Reason: Cough Piperacillin Sod/Tazobactam (Sod 2.25 gm/ Sodium Chloride) 50 mls @ 100 mls/hr IV Q6H [facility] Last Infusion: 06/15/25 09:23 Dose: Infused Vancomycin HCl 750 mg/ Sodium (Chloride) 265 mls @ 265 mls/hr IV Q24H RASHAD Lorazepam (Lorazepam 0.5 Mg Tablet) 0.5 mg PO Q8H PRN PRN Reason: Anxiety Last Admin: 06/15/25 01:52 Dose: 0.5 mg Magnesium Hydroxide (Milk Of Magnesia 30 Ml Oral.Susp) 30 ml PO DAILY PRN PRN Reason: Constipation Melatonin (Melatonin 3 Mg Tablet) 6 mg PO BEDTIME PRN PRN Reason: Insomnia Metoprolol Tartrate (Metoprolol Tartrate 25 Mg Tablet) 25 mg PO BID [facility]; Protocol Ondansetron HCl (Ondansetron Hcl 4 Mg/2 Ml Vial) 4 mg IVPUSH Q8H PRN PRN Reason: Nausea and Vomiting Pharmacy Consult (Consult Rx Vancomycin Dosing) 1 each MISCELLANE DAILY PRN PRN Reason: Consult order Polyethylene Glycol (Polyethylene Glycol 3350 17 Gm Powd.Pack) 17 gm PO DAILY PRN PRN Reason: Constipation Senna (Sennosides 8.6 Mg Tablet) 17.2 mg PO BEDTIME [facility] Sodium Bicarbonate (Sodium Bicarbonate 650 Mg Tablet) 650 mg PO BID [facility] Last Admin: 06/15/25 09:21 Dose: 650 mg Sodium Chloride (0.9 % Sodium Chloride Flush 3 Ml Syringe) 3 ml IVFLUSH QSHIFT [facility] Last Admin: 06/15/25 08:23 Dose: 3 ml Tramadol HCl (Tramadol Hcl 50 Mg Tablet) 50 mg PO TID PRN PRN Reason: moderate pain Home Medications ?Medication ?Instructions ?Recorded ?Confirmed ?Last Taken ?Type fluticasone furoate 200 1 inh inhalation DAILY PRN 06/15/25 06/15/25 Unknown History mcg/actuation blister powder for Shortness Of Breath Or Wheezing inhalation (Arnuity Ellipta) tramadol 50 mg tablet 50 mg PO TID PRN moderate pain 06/15/25 06/15/25 Unknown History Physical Exam Vital Signs: Vital Signs: Last Vital Signs Temp 98.1 F 06/15/25 11:03 Pulse 62 06/15/25 11:03 Resp 18 06/15/25 11:03 BP 142/63 H 06/15/25 11:03 Pulse Ox 95 06/15/25 11:03 O2 Del Method Nasal Cannula 06/15/25 11:03 O2 Flow Rate 2 06/15/25 11:03 BMI result Body Mass Index 26.6 Const: General: no acute distress and alert Nutritional Appearance: not obese Orientation/consciousness: Other orientation findings ( oriented) HEENT: Head: Yes atraumatic Eyes: General: appearance normal, both eyes and all related structures Sclerae: sclerae normal EOM: EOMs intact bilaterally Neck: Neck: Yes supple Lymphatic: no lymphadenopathy noted Resp: Effort & Inspection: normal respiratory effort and no use of accessory muscles Auscultation: clear to auscultation bilaterally Cardio: Rate: regular rate Rhythm: regular rhythm Heart sounds: no gallops, no murmurs and no rubs Skin: General skin exam: other ( warm) Extrem: General: No clubbing, No cyanosis and No edema Results Laboratory Findings 06/15/25 06:44 06/15/25 06:43 ABG, PT/INR, D-dimer: PT/INR, D-dimer PT 14.4 SEC (10.9-12.4) H 06/14/25 22:46 INR 1.3 (0.9-1.1) H 06/14/25 22:46 Abnormal lab findings: Abnormal Labs 06/14/25 06/14/25 06/14/25 22:46 22:55 23:38 WBC 35.7 H* RBC 2.79 L Hgb 9.3 L Hct 29.1 L MCV 104.3 H MCH 33.3 H RDW 21.2 H Plt Count 24 L Immature Gran % (Auto) Neut % (Auto) Lymph % (Auto) [place] % (Auto) [place] # (Auto) Abs Immat Gran (auto) Absolute Neuts (auto) Absolute Nucleated RBC 0.030 H Neutrophils % (Manual) 82 H Lymphocytes % (Manual) 2 L Abs Neuts (Manual) 31.1 H Lymphocytes # (Manual) 0.7 L Monocytes # (Manual) 3.9 H PT 14.4 H INR 1.3 H VBG HCO3 17 L Chloride 115 H Carbon Dioxide 17 L BUN 51 H Creatinine 1.82 H POC Glucose Random Glucose 152 H Calcium AST 45 H Alkaline Phosphatase 195 H B-Natriuretic Peptide 894 H Total Protein Albumin Urine Protein 30 (1+) H Urine Glucose (UA) >=1000 H Urine Blood Trace H 06/15/25 06/15/25 06/15/25 04:10 06:43 06:44 WBC 33.7 H* RBC 2.64 L Hgb 8.7 L Hct 28.0 L MCV 106.1 H MCH RDW 21.1 H Plt Count 17 L* Immature Gran % (Auto) 4.2 H Neut % (Auto) 79.3 H Lymph % (Auto) 3.6 L [place] % (Auto) 12.6 H [place] # (Auto) 4.3 H Abs Immat Gran (auto) 1.42 H Absolute Neuts (auto) 26.7 H Absolute Nucleated RBC Neutrophils % (Manual) Lymphocytes % (Manual) Abs Neuts (Manual) Lymphocytes # (Manual) Monocytes # (Manual) PT INR VBG HCO3 Chloride 116 H Carbon Dioxide 16 L BUN 53 H Creatinine 1.78 H POC Glucose 181 H Random Glucose 235 H Calcium 8.0 L AST Alkaline Phosphatase 161 H B-Natriuretic Peptide Total Protein 6.0 L Albumin 3.4 L Urine Protein Urine Glucose (UA) Urine Blood Assessment and Plan (1) Acute respiratory failure with hypoxia: Status: Acute (2) Bronchiectasis: Status: Acute (3) Multifocal pneumonia: Status: Acute Plan Impression: 80-year-old gentleman with underlying bronchiectasis and asbestosis, also recently started on azacitidine for MDI/CM acute hypoxic respiratory failure. His CT chest demonstrated multifocal infiltrates and left-sided effusion. Also noted to have evaluated of a baseline BNP with some orthopnea. At this time etiology of his hypoxia is unclear, hyperacute onset is not consistent with an infectious process, but can not be completely ruled out, also may have a component of adverse drug reaction to his chemotherapy, and also pulmonary edema. Recommendations: Agree with empiric broad-spectrum antibiotics. Consider oncologic evaluation. Consider trial of diuresis. Procedures Date of Service Date of Service: 06/15/25
--- NOTE | 2025-06-15 13:41 | PM.HEMONCCN ---
Subjective - Subjective Chief complaint: Consult for: Pancytopenia. CMML. Patient: known to practice within the last 3 years Consult date: 06/15/25 Requesting Physician: Kobe Christian MD Primary Care Provider: Kobe Christian MD Family Provider: Kobe Christian MD. Medical Summary: DIAGNOSIS: CMML. Client Customer Manager Utilized?: No - French Speaking HPI - Consult Narrative Reason for consult: Consult for: 1. Pneumonia. 2.Pancytopenia. 3. CMML. Narrative: Ace Berkowitz is a 80 year old gentleman, with past medical history hypertension, hyperlipidemia, gout, atrial fibrillation on Eliquis, prediabetes, chronic kidney disease stage 3, sciatica, asbestosis, COPD, prostate cancer with prostatectomy, non STEMI, CAD,HFrEF 45-50%, renal cyst, pilondial cyst. 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 He was brought in by ambulance due to SOB and weakness. Pt was not altered or lethargic. EMS noted patient's pulse ox was 65% on room air,. He received a non-rebreather and sats improved to the mid 90s. Within the last week patient did start the new chemotherapeutic agent within the last week. Patient has been off his Eliquis due to low platelet count. Chest x-ray done in the ED noted multi focal bilateral nonspecific consolidation highly suspicious for pneumonia. Aspiration also a possibility. Reviewed this with patient and son and they denied that patient is having issues with eating or taking medications or drinking fluids. Patient has a nonproductive cough. BNP also elevated, 894 with known hx of HFrEF 45-50%. Last complete echo 09/10/24. Pt currently in NSR, no complaints of chest pain. Temp max 103.8. BC X2 drawn. No tachycardia or hypotension. Patient received 2 g of cefepime IV. Patient also started on methylprednisolone 125 mg IV x1. Patient also received 2 g magnesium IV x1. Patient currently on 5 L nasal cannula, alert and orientated but pale in presentation. H&H 9.3 and 29.1. Platelets 24,000. White count 35. VBG , 7.38 , 28, 70 17 on oxygen. Patient does not use oxygen at home currently. CT Chest from 06/15: Bilateral multifocal airspace opacities and pleural effusions. Findings may represent sequelae of infection, inflammation, pneumonitis in the acute setting. Recommend follow-up evaluation to resolution with particular attention to the left upper lobe opacities, to exclude underlying neoplasm. Patient was initially not happy about being admitted to the hospital. His son who is also the healthcare proxy, reassured him. He finally agreed to stay. Son is also caring for patient's spouse who has Alzheimer's disease and is part of the pace program. Son is open to talking with case management to plan for current and future needs as son will be returning to work as a teacher once the summer ends. Pt did meet criteria for sepsis with noted hypoxia, fever 103.8, and leukocytosis (aware of MDS cancer DX). 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 Atrial fibrillation CKD stage 3 secondary to diabetes COPD exacerbation Atrial fibrillation with RVR Sciatica Prediabetes Asbestosis Chronic cough Cognitive capacity: Currently alert and orientated x3 Functional capacity: uses cane/walker Surgical History: Stented coronary artery S/P cardiac cath History of colonoscopy (~10/27/16) Hx of cardiac cath Social History:) Household Members: Spouse, Family and Children Housing: House Do you presently have visiting nurse or other home services: No Alcohol intake: current Alcohol intake frequency: holidays/special occasions only Patient Tobacco Use Status: Former Tobacco user Smoked in Last 30 Days: No. Review of Systems Review of Systems: Patient offers no current chest pain, shortness of breath at rest noting he is on 5 L of O2 via nasal cannula. Patient denies any abdominal pain, nausea or vomiting. Patient denies any headache or visual changes. Patient is offering mild back pain related to being on the stretcher. Patient does state as well as the son that his pilonidal cyst has healed from March of 2025. Yes all other systems are reviewed and are negative Review of Systems - Constitutional Reports system reviewed and no additional complaints, except as documented - Eyes Reports system reviewed and no additional complaints, except as documented - ENT Reports system reviewed and no additional complaints, except as documented - Cardiovascular Reports system reviewed and no additional complaints, except as documented - Respiratory Reports no additional respiratory complaints - Gastrointestinal Reports system reviewed and no additional complaints, except as documented - Genitourinary Genitourinary: Reports no additional male genitourinary complaints - Musculoskeletal Reports system reviewed and no additional complaints, except as documented - Integumentary/Breasts Skin/Breast: Reports no additional skin complaints - Neurologic Denies memory loss, Denies seizure-like activity - Psychiatric Reports system reviewed and no additional complaints, except as documented - Endocrine Reports no additional endocrine complaints - Hematologic/Lymphatic Reports system reviewed and no additional complaints, except as documented - Allergic/Immunologic Reports system reviewed and no additional complaints, except as documented Oncology Screenings - ECOG Performance Status ECOG Performance Status: 2 [facility] Medical History: Medical History (Last Updated 06/15/25 @ 01:25 by CHUCK Courtney-GLORIA) Asbestosis Atrial fibrillation Atrial fibrillation with RVR Chronic cough CKD stage 3 secondary to diabetes COPD exacerbation Diabetes Heart failure with reduced ejection fraction MDS/MPN (myelodysplastic/myeloproliferative neoplasms) Prediabetes Renal cyst Sacrococcygeal pilonidal cyst Sciatica Thrombocytopenia Functional capacity: uses cane/walker Surgical History: Surgical History (Last Updated 06/15/25 @ 01:25 by RICHIE Courtney) History of colonoscopy Onset Date: ~10/27/16 Hx of cardiac cath S/P cardiac cath Stented coronary artery Social History: Social History (Last Reviewed 06/15/25 @ 01:23 by CHUCK Courtney-GLORIA) Living Situation History: Household Members: Unknown / Unable to asses Housing: Unknown / Unable to asses Do you presently have visiting nurse or other home services: No Alcohol History Details: 1. How often do you have a drink containing alcohol?: a. Never AUDIT-C Alcohol total score: 0 Currently Displaying Signs/Symptoms of Alcohol Withdrawal: No Tobacco History: Patient Tobacco Use Status: Former Tobacco user Smoked in Last 30 Days: No Patient Interested in Nicotine Replacement: No Patient Given Instructions on How to Stop Smoking: No Second Hand Smoke Exposure: No Substance Use History: Use of substances other than those prescribed or required for medical reasons: No Currently Displaying Signs/Symptoms of Drug Intoxication Withdrawal: No Domestic Abuse History: Have you been hit, kicked, punched, or otherwise hurt by someone within the past year? If so, by whom?: No Do you feel safe in your current relationship?: No Current Relationship Is there a partner from a previous relationship who is making you feel unsafe now?: No Are you made to feel afraid or neglected: No Advance Directives: Advance Directives: Yes Advance Directives on File: Yes Advance Directives Date on File: 09/13/24 Homicidal Assessment: Do you have a plan to hurt others: No Plan Nutrition Assessment: Recently lost weight without trying: No Nutrition Risks: On aspiration precautions Poor oral hygiene: No Occupation Assessmet: service: No Current occupational status: retired Current occupational status: disabled - Travel History Ebola Risk: Travel/Contact With Anyone From Affected Area/s: No Has Patient Experienced Ebola Symptoms: No Home Medications and Allergies Current Medications: Current Medications Acetaminophen (Acetaminophen 325 Mg Tablet) 650 mg PO Q6H PRN PRN Reason: Pain, Mild 1-3,fever,headache Last Admin: 06/15/25 02:16 Dose: 650 mg Albuterol/Ipratropium (Albuterol/Iprat 2.5/0.5mg 3 Ml Ampul.Neb) 3 ml INHALE RQ4H PRN PRN Reason: Shortness of Breath/Wheezing Allopurinol (Allopurinol 100 Mg Tablet) 100 mg PO DAILY RASHAD Atorvastatin Calcium (Atorvastatin Calcium 40 Mg Tablet) 40 mg PO BEDTIME RASHAD Calcium Carbonate (Calcium Carbonate 750 Mg Tab.Chew) 750 mg PO Q4H PRN PRN Reason: Heartburn Guaifenesin (Guaifenesin 200 Mg/10 Ml 10 Ml Liquid) 10 ml PO Q4H PRN PRN Reason: Cough Piperacillin Sod/Tazobactam (Sod 2.25 gm/ Sodium Chloride) 50 mls @ 100 mls/hr IV Q6H RASHAD Last Infusion: 06/15/25 09:23 Dose: Infused Vancomycin HCl 750 mg/ Sodium (Chloride) 265 mls @ 265 mls/hr IV Q24H RASHAD Lorazepam (Lorazepam 0.5 Mg Tablet) 0.5 mg PO Q8H PRN PRN Reason: Anxiety Last Admin: 06/15/25 01:52 Dose: 0.5 mg Magnesium Hydroxide (Milk Of Magnesia 30 Ml Oral.Susp) 30 ml PO DAILY PRN PRN Reason: Constipation Melatonin (Melatonin 3 Mg Tablet) 6 mg PO BEDTIME PRN PRN Reason: Insomnia Metoprolol Tartrate (Metoprolol Tartrate 25 Mg Tablet) 25 mg PO BID [facility]; Protocol Ondansetron HCl (Ondansetron Hcl 4 Mg/2 Ml Vial) 4 mg IVPUSH Q8H PRN PRN Reason: Nausea and Vomiting Pharmacy Consult (Consult Rx Vancomycin Dosing) 1 each MISCELLANE DAILY PRN PRN Reason: Consult order Polyethylene Glycol (Polyethylene Glycol 3350 17 Gm Powd.Pack) 17 gm PO DAILY PRN PRN Reason: Constipation Senna (Sennosides 8.6 Mg Tablet) 17.2 mg PO BEDTIME [facility] Sodium Bicarbonate (Sodium Bicarbonate 650 Mg Tablet) 650 mg PO BID [facility] Last Admin: 06/15/25 09:21 Dose: 650 mg Sodium Chloride (0.9 % Sodium Chloride Flush 3 Ml Syringe) 3 ml IVFLUSH QSHIFT [facility] Last Admin: 06/15/25 08:23 Dose: 3 ml Tramadol HCl (Tramadol Hcl 50 Mg Tablet) 50 mg PO TID PRN PRN Reason: moderate pain Home Medications ?Medication ?Instructions ?Recorded ?Confirmed ?Type fluticasone furoate 200 1 inh inhalation DAILY PRN 06/15/25 06/15/25 History mcg/actuation blister powder for Shortness Of Breath Or Wheezing inhalation (Arnuity Ellipta) tramadol 50 mg tablet 50 mg PO TID PRN moderate pain 06/15/25 06/15/25 History Allergies Allergy/AdvReac Type Severity Reaction Status Date / Time No Known Allergies Allergy Verified 06/14/25 22:39 Physical Exam Vital signs: Vital Signs Temp 98.1 F 06/15/25 11:03 Pulse 62 06/15/25 11:03 Resp 18 06/15/25 11:03 BP 142/63 H 06/15/25 11:03 Pulse Ox 95 06/15/25 11:03 O2 Del Method Nasal Cannula 06/15/25 11:03 O2 Flow Rate 2 06/15/25 11:03 Intake & Output 06/14/25 06/15/25 06/15/25 18:59 06:59 18:59 Intake Total 2908.07 / 2908.07 50 / 50 Output Total 400 / 400 600 / 600 Balance 2508.07 / 2508.07 -550 / -550 Urine Output (Average ml/kg/hr) 0.43 0.65 Intake: Intake, IV Amount 2908.07 / 2908.07 50 / 50 0.9 % Sodium Chloride 2,001 ml 2000 / 2000 @ 2001 mls/hr IV .Q1H STA Rx#: [id number] Doxycycline Hyclate 100 mg In 0 222.07 / 222.07 .9 % Sodium Chloride 250 ml @ 166.67 mls/hr IV Q12H RASHAD Rx#: [id number] Magnesium Sulfate/H2O 2 gm In 50 / 50 50 ml @ 25 mls/hr IV ONCE ONE Rx#:[id number] Piperacillin Sodium/Tazobactam 50 / 50 50 / 50 2.25 gm In 0.9 % Sodium Chloride 50 ml @ 100 mls/hr IV Q6H RASHAD Rx#:[id number] cefEPime HCl/D5W 2 gm In 50 ml 50 / 50 @ 100 mls/hr IV ONCE ONE Rx#: [id number] vancomycin HCL 1,000 mg 535 / 535 vancomycin HCL 750 mg In 0.9 % Sodium Chloride 500 ml @ 267.5 mls/hr IV ONCE ONE Rx#: [id number] Output: Output, Urine Amount 400 / 400 600 / 600 Other: Urine purewic M purewick Urine Color Yellow Yellow Weight 77.1 kg Weight 77.1 kg - Constitutional Present: mild distress - Routine HEENT Exam Head: Present: normal inspection, normocephalic Eye: Present: normal appearance ENT: Present: mucous membranes moist - Routine Neck Exam Present: supple Hem/Onc Consult Result - Labs CBC & Chem 7: 06/22/25 08:24 06/22/25 08:24 Labs: Short CBC 06/14/25 06/15/25 Range/Units 22:46 06:44 WBC 35.7 H* 33.7 H* (4.8-10.8) X10*3/uL Hgb 9.3 L 8.7 L (14.0-18.0) g/dl Hct 29.1 L 28.0 L (42.0-52.0) % Plt Count 24 L 17 L* (160-400) X10*3/uL BMP 06/14/25 06/15/25 22:46 06:43 Sodium 142 140 Potassium 4.5 5.1 Chloride 115 H 116 H Carbon Dioxide 17 L 16 L BUN 51 H 53 H Creatinine 1.82 H 1.78 H Calcium 8.5 8.0 L Liver Function 06/14/25 06/15/25 Range/Units 22:46 06:43 Total Bilirubin 0.8 0.7 (0.0-1.0) mg/dL Direct Bilirubin 0.4 (0.0-0.5) mg/dL AST 45 H 35 (5-37) U/L ALT 40 38 (0-40) U/L Alkaline Phosphatase 195 H 161 H (39-117) U/L Albumin 3.6 3.4 L (3.5-5.0) g/dL Urine 06/14/25 Range/Units 23:38 Urine Color Yellow Urine Appearance Cloudy Urine pH 5.0 (5.0-9.0) Ur Specific [place] 1.020 (1.005-1.025) Urine Protein 30 (1+) H (Neg-Trace) mg/dL Urine Glucose (UA) >=1000 H (Negative) mg/dL Assessment and Plan Patient Active problem list reviewed?: Yes (1) CMML (chronic myelomonocytic leukemia) Status: Acute Assessment and plan: This is a 80 year old male with a complex medical history including prostate ca s/p radical prostatectomy 20 years ago, nstemi in August,, CAD, heart failure, atrial fibrillation on Eliquis, DM2, CKD stage 3, asbestosis. Marked leukocytosis with neutrophilic predominance and myeloid left shift (WBC 68058) with anemia and thrombocytopenia, elevated LDH and uric acid.Picture highly suspicious for Myeloproliferative / myelodysplastic process such as CML, CMML, less likely acute leukemia. Anemia likely secondary to marrow disease and chronic illness. Thrombocytopenia likely reflects marrow process. He was initially started on cytoreductive therapy with Hydrea 500 mg PO daily. With that the leukocytosis improved. Anemia stablilized, thrombocytopenia worsened slightly. DATA BASE: Blood flow cytometry performed 04/24/2025 showed nonspecific T-cell dominant profile with small CD4/CD8 double negative T-cell population. No increase in blasts or CD34 positive events. Diagnostic features of B-cell lymphoproliferative disorder not seen. CT abdomen/pelvis in March 2025 showed splenomegaly measuring 15.5 cm. 3 mm stone in the distal right ureter causing mild hydroureteronephrosis. Lobular liver contour may indicate cirrhosis. Bcr-ABL1 translocation not detected. Bone marrow biopsy performed 05/28/2025 showed suboptimal but hypercellular marrow with trilineage dyspoietic maturation. Blasts are 5% in the aspirate. Findings in keeping with myeloid neoplasm, combined MDS/MPN or chronic myelomonocytic leukemia. Karyotype revealed 46XY, normal male karyotype. Flow cytometry showed nonspecific T-cell dominant profile no increase in blasts or CD34 positive events diagnostic features of B-cell lymphoproliferative disorder not seen. Molecular studies revealed JAK2 V 617 F mutation, SRSF2 and TET2 mutations. No alteration seen in CALR, FLT3, IDH1/IDH2, NPL, LIBRARY HISTORIAN M1 and TP53 Repeat CBC from 06/06: platelet counts below 30 K. He was advised to hold Hydrea as well as Eliquis and Plavix. Diagnosis, prognosis and management of CMML, MDS/MPL overlap syndrome were discussed. IPSS-M score -0.40 which is moderate low. He has high-risk mutations associated with poor prognosis. However TET2 mutation is associated with response to hypomethylating agent. He was on hydroxyurea which made his anemia and thrombocytopenia worse. He was therefore advised to stop this. He was started on hypomethylating agent with 5 azacitidine 75 milligram/meter squared per day for 7 days of a 28 day cycle. Side effects of treatment including risk of cytopenias, infection and GI toxicity were discussed. He received the treatment last week. He was brought in to the hospital due to SOB and weakness. EMS noted patient's pulse ox was 65% on room air. He received a non-rebreather and sats improved to the mid 90s. Pt was not altered or lethargic. He has been off his Eliquis due to low platelet count. Database: 06/15. CBC: WBC 33.7, HGB 8.7, HCT 28, PLT 17. 7/26. CBC: WBC 36, HGB 9.3, HCT 29, PLT 24. 7/24. Platelet 32. CT Chest from 06/15: Bilateral multifocal airspace opacities and pleural effusions. Findings may represent sequelae of infection, inflammation, pneumonitis in the acute setting. Recommend follow-up evaluation to resolution with particular attention to the left upper lobe opacities, to exclude underlying neoplasm. Picture is consistent with a pneumonia, the setting of immunosuppression from underlying CMML. Doubt related to treatment since he was just started on it last week. He has been started on Zosyn and vancomycin. PLAN: Agree with empiric broad-spectrum antibiotics. Consider bronch/BAL once stable. Trial of IV Steroids. Transfuse platelets if count less than 10 or for bleeding. Red blood cell transfusion for hemoglobin less than 8. Thank you for the consult, Will follow along with you. CC: Kobe Mccauley. - Time Spent With Patient Time Spent with Patient (in minutes): 30
--- NOTE | 2025-06-15 18:21 | P.EN_ITS ---
Event Note Date of Service: 06/15/25 Event Note: This patient is seen and examined by hospitalist team this morning Seen and examined again-patient says she is feeling more agile and shortness of breath improving Labs reviewed:Leukocytosis somewhat improving, thrombocytopenia trending down. Physical exam and assessment and plan coordinated in h&P Agree with the plan in addition: Acute hypoxemic respiratory failure, seen by Pulmonary:80-year-old gentleman with underlying bronchiectasis and asbestosis, also recently started on azacitidine for MDI/CM acute hypoxic respiratory failure. His CT chest demonstrated multifocal infiltrates and left-sided effusion. Also noted to have evaluated of a baseline BNP with some orthopnea. At this time etiology of his hypoxia is unclear, hyperacute onset is not consistent with an infectious process, but can not be completely ruled out, also may have a component of ad verse drug reaction to his chemotherapy, and also pulmonary edema. We will continue currently antibiotics, oxygen, since patient is improving and above changes may be chemo related( defer IV Lasix for now). Incentive spirometry, chest physiotherapy. Discussed with Heme-Onc: Considering recent chemotherapy-above changes -chemo might be contributing, recommended to add Solu-Medrol IV. For thrombocytopenia: No bleeding. Avoid any blood thinner Monitor CBC, type and cross. ckd /low bocarb , ph fine ; added po bicarbx1 day, d/w nephrology d/w patient and his son in detail at bedside Time Spent With Patient Time: Total time managing care of this patient today ____ minutes.
[2025-06-15] MEDS: guaiFENesin 200 MG/10 ML 10 ML LIQUID PO (23:21)
[2025-06-16] VITALS (9 sets, daily range): BP systolic 148–161; BP diastolic 63–75; PULSE 53–76; RESP 16–20; TEMP 36–36.8; O2SAT 96–99
[2025-06-16 06:53] LABS: Hematocrit 27.2 % (42.0-52.0); Hemoglobin 8.5 g/dl (14.0-18.0); Mean Corpuscular HGB Conc 31.3 g/dl (31.0-36.0); Mean Corpuscular Hemoglobin 33.2 pg (27.0-33.0); Mean Corpuscular Volume 106.3 fL (80.0-98.0); NRBC Abs Auto 0.000 X10*3/uL (0.0-0.012); NRBC Pct Auto 0.0 /100WBC (0.0-0.2); Red Blood Count 2.56 X10*6/uL (4.60-5.80)
[2025-06-16 07:09] LABS: Anion Gap 16 (12-20); Blood Urea Nitrogen 56 mg/dL (9-16); Calcium 8.2 mg/dL (8.4-10.2); Carbon Dioxide 17 mmol/L (22-29); Chloride 112 mmol/L (96-108); Creatinine Clr Calc Pharmacy 31.5; Estimated Glomerular Filt Rate 39; Potassium 5.3 mmol/L (3.3-5.1); Sodium 140 mmol/L (135-145)
[2025-06-16 07:39] LABS: Platelet Count 18 X10*3/uL (160-400); White Blood Count 44.3 X10*3/uL (4.8-10.8)
[2025-06-16] MEDS: 0.9 % Sodium Chloride Flush 3 ML SYRINGE IVFLUSH ×3 (07:48→20:09)
--- NOTE | 2025-06-16 08:53 | PM.HEMONCPN ---
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 He was brought in by ambulance due to SOB and weakness. Pt was not altered or lethargic. EMS noted patient's pulse ox was 65% on room air,. He received a non-rebreather and sats improved to the mid 90s. Within the last week patient did start the new chemotherapeutic agent within the last week. Patient has been off his Eliquis due to low platelet count. Chest x-ray done in the ED noted multi focal bilateral nonspecific consolidation highly suspicious for pneumonia. Aspiration also a possibility. Reviewed this with patient and son and they denied that patient is having issues with eating or taking medications or drinking fluids. Patient has a nonproductive cough. BNP also elevated, 894 with known hx of HFrEF 45-50%. Last complete echo 09/10/24. Pt currently in NSR, no complaints of chest pain. Temp max 103.8. BC X2 drawn. No tachycardia or hypotension. Patient received 2 g of cefepime IV. Patient also started on methylprednisolone 125 mg IV x1. Patient also received 2 g magnesium IV x1. Patient currently on 5 L nasal cannula, alert and orientated but pale in presentation. H&H 9.3 and 29.1. Platelets 24,000. White count 35. VBG , 7.38 , 28, 70 17 on oxygen. Patient does not use oxygen at home currently. CT Chest from 06/15: Bilateral multifocal airspace opacities and pleural effusions. Findings may represent sequelae of infection, inflammation, pneumonitis in the acute setting. Recommend follow-up evaluation to resolution with particular attention to the left upper lobe opacities, to exclude underlying neoplasm. Patient was initially not happy about being admitted to the hospital. His son who is also the healthcare proxy, reassured him. He finally agreed to stay. Son is also caring for patient's spouse who has Alzheimer's disease and is part of the pace program. Son is open to talking with case management to plan for current and future needs as son will be returning to work as a teacher once the summer ends. Pt did meet criteria for sepsis with noted hypoxia, fever 103.8, and leukocytosis (aware of MDS cancer DX). 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 Atrial fibrillation CKD stage 3 secondary to diabetes COPD exacerbation Atrial fibrillation with RVR Sciatica Prediabetes Asbestosis Chronic cough Cognitive capacity: Currently alert and orientated x3 Functional capacity: uses cane/walker Surgical History: Stented coronary artery S/P cardiac cath History of colonoscopy (~10/27/16) Hx of cardiac cath Social History:) Household Members: Spouse, Family and Children Housing: House Do you presently have visiting nurse or other home services: No Alcohol intake: current Alcohol intake frequency: holidays/special occasions only Patient Tobacco Use Status: Former Tobacco user Smoked in Last 30 Days: No. Review of Systems Review of Systems: Patient offers no current chest pain, shortness of breath at rest noting he is on 2 L of O2 via nasal cannula. Patient denies any abdominal pain, nausea or vomiting. Patient denies any headache or visual changes. Patient is offering mild back pain related to being on the stretcher. Patient does state as well as the son that his pilonidal cyst has healed from March of 2025. Yes all other systems are reviewed and are negative Review of Systems - Neurologic Denies memory loss, Denies seizure-like activity COUNT INCLUDES THE [facility] Medical History: Medical History (Last Updated 06/15/25 @ 01:25 by RICHIE Courtney) Asbestosis Atrial fibrillation Atrial fibrillation with RVR Chronic cough CKD stage 3 secondary to diabetes COPD exacerbation Diabetes Heart failure with reduced ejection fraction MDS/MPN (myelodysplastic/myeloproliferative neoplasms) Prediabetes Renal cyst Sacrococcygeal pilonidal cyst Sciatica Thrombocytopenia Functional capacity: uses cane/walker Surgical History: Surgical History (Last Updated 06/15/25 @ 01:25 by CHUCK CourtneyGLORIA) History of colonoscopy Onset Date: ~10/27/16 Hx of cardiac cath S/P cardiac cath Stented coronary artery Social History: Social History (Last Reviewed 06/15/25 @ 01:23 by RICHIE Courtney) Living Situation History: Household Members: Unknown / Unable to asses Housing: Unknown / Unable to asses Do you presently have visiting nurse or other home services: No Alcohol History Details: 1. How often do you have a drink containing alcohol?: a. Never AUDIT-C Alcohol total score: 0 Currently Displaying Signs/Symptoms of Alcohol Withdrawal: No Tobacco History: Patient Tobacco Use Status: Former Tobacco user Smoked in Last 30 Days: No Patient Interested in Nicotine Replacement: No Patient Given Instructions on How to Stop Smoking: No Second Hand Smoke Exposure: No Substance Use History: Use of substances other than those prescribed or required for medical reasons: No Currently Displaying Signs/Symptoms of Drug Intoxication Withdrawal: No Domestic Abuse History: Have you been hit, kicked, punched, or otherwise hurt by someone within the past year? If so, by whom?: No Do you feel safe in your current relationship?: No Current Relationship Is there a partner from a previous relationship who is making you feel unsafe now?: No Are you made to feel afraid or neglected: No Advance Directives: Advance Directives: Yes Advance Directives on File: Yes Advance Directives Date on File: 09/13/24 Homicidal Assessment: Do you have a plan to hurt others: No Plan Nutrition Assessment: Recently lost weight without trying: No Nutrition Risks: On aspiration precautions Poor oral hygiene: No Occupation Assessmet: service: No Current occupational status: retired Current occupational status: disabled - Travel History Ebola Risk: Travel/Contact With Anyone From Affected Area/s: No Has Patient Experienced Ebola Symptoms: No Home Medications and Allergies Current Medications: Current Medications Acetaminophen (Acetaminophen 325 Mg Tablet) 650 mg PO Q6H PRN PRN Reason: Pain, Mild 1-3,fever,headache Last Admin: 06/15/25 02:16 Dose: 650 mg Albuterol/Ipratropium (Albuterol/Iprat 2.5/0.5mg 3 Ml Ampul.Neb) 3 ml INHALE RQ4H PRN PRN Reason: Shortness of Breath/Wheezing Allopurinol (Allopurinol 100 Mg Tablet) 100 mg PO DAILY [facility] Last Admin: 06/16/25 07:49 Dose: 100 mg Atorvastatin Calcium (Atorvastatin Calcium 40 Mg Tablet) 40 mg PO BEDTIME [facility] Last Admin: 06/15/25 20:22 Dose: 40 mg Calcium Carbonate (Calcium Carbonate 750 Mg Tab.Chew) 750 mg PO Q4H PRN PRN Reason: Heartburn Guaifenesin (Guaifenesin 200 Mg/10 Ml 10 Ml Liquid) 10 ml PO Q4H PRN PRN Reason: Cough Last Admin: 06/15/25 23:21 Dose: 10 ml Piperacillin Sod/Tazobactam (Sod 2.25 gm/ Sodium Chloride) 50 mls @ 100 mls/hr IV Q6H [facility] Last Admin: 06/16/25 07:49 Dose: 100 mls/hr Vancomycin HCl 750 mg/ Sodium (Chloride) 265 mls @ 265 mls/hr IV Q24H [facility] Last Infusion: 06/16/25 00:21 Dose: Infused Lorazepam (Lorazepam 0.5 Mg Tablet) 0.5 mg PO Q8H PRN PRN Reason: Anxiety Last Admin: 06/15/25 01:52 Dose: 0.5 mg Magnesium Hydroxide (Milk Of Magnesia 30 Ml Oral.Susp) 30 ml PO DAILY PRN PRN Reason: Constipation Melatonin (Melatonin 3 Mg Tablet) 6 mg PO BEDTIME PRN PRN Reason: Insomnia Methylprednisolone Sodium Succinate (Methylprednisolone Sod Succ 40 Mg/Ml Vial) 40 mg IVPUSH Q24H [facility] Last Admin: 06/15/25 14:39 Dose: 40 mg Metoprolol Tartrate (Metoprolol Tartrate 25 Mg Tablet) 25 mg PO BID [facility]; Protocol Last Admin: 06/16/25 07:49 Dose: 25 mg Ondansetron HCl (Ondansetron Hcl 4 Mg/2 Ml Vial) 4 mg IVPUSH Q8H PRN PRN Reason: Nausea and Vomiting Pharmacy Consult (Consult Rx Vancomycin Dosing) 1 each MISCELLANE DAILY PRN PRN Reason: Consult order Polyethylene Glycol (Polyethylene Glycol 3350 17 Gm Powd.Pack) 17 gm PO DAILY PRN PRN Reason: Constipation Senna (Sennosides 8.6 Mg Tablet) 17.2 mg PO BEDTIME [facility] Last Admin: 06/15/25 20:22 Dose: 17.2 mg Sodium Bicarbonate (Sodium Bicarbonate 650 Mg Tablet) 650 mg PO BID [facility] Last Admin: 06/16/25 07:49 Dose: 650 mg Sodium Chloride (0.9 % Sodium Chloride Flush 3 Ml Syringe) 3 ml IVFLUSH QSHIFT [facility] Last Admin: 06/16/25 07:48 Dose: 3 ml Tramadol HCl (Tramadol Hcl 50 Mg Tablet) 50 mg PO TID PRN PRN Reason: moderate pain Home Medications ?Medication ?Instructions ?Recorded ?Confirmed ?Type fluticasone furoate 200 1 inh inhalation DAILY PRN 06/15/25 06/15/25 History mcg/actuation blister powder for Shortness Of Breath Or Wheezing inhalation (Arnuity Ellipta) tramadol 50 mg tablet 50 mg PO TID PRN moderate pain 06/15/25 06/15/25 History Allergies Allergy/AdvReac Type Severity Reaction Status Date / Time No Known Allergies Allergy Verified 06/14/25 22:39 Exam Vital signs: Vital Signs Temp 97.0 F 06/16/25 07:27 Pulse 60 06/16/25 07:27 Resp 20 06/16/25 07:27 BP 148/63 H 06/16/25 07:27 Pulse Ox 98 06/16/25 07:27 O2 Del Method Nasal Cannula 06/16/25 07:27 O2 Flow Rate 1.5 06/16/25 07:27 Intake & Output 06/15/25 06/16/25 06/16/25 18:59 06:59 18:59 Intake Total 600 / 965 365 / 965 Output Total 1100 / 2900 1800 / 2900 Balance -500 / -1935 -1435 / -1935 Urine Output (Average ml/kg/hr) 1.19 1.95 1.95 Intake: Intake, Oral Amount 500 / 500 Intake, IV Amount 100 / 465 365 / 465 Piperacillin Sodium/Tazobactam 100 / 200 100 / 200 2.25 gm In 0.9 % Sodium Chloride 50 ml @ 100 mls/hr IV Q6H [facility] Rx#:[id number] vancomycin HCL 750 mg In 0.9 % 265 / 265 Sodium Chloride 250 ml @ 265 mls/hr IV Q24H [facility] Rx#: [id number] Output: Output, Urine Amount 1100 / 2900 1800 / 2900 Other: Breakfast % Eaten 100% Eating (Feeding) Ability Independent Number of Bowel Movements 1 Urine M purewick purewick Urine Color Yellow Tea Last Bowel Movement 06/16/25 Stool Bedside Commode Stool Amount Large Stool Color Brown Stool Consistency Formed Weight 77.1 kg BMI result Body Mass Index 26.6 - Constitutional Present: mild distress - Routine HEENT Exam Head: Present: normal inspection, normocephalic Data - Labs CBC & Chem 7: 06/16/25 06:30 06/16/25 06:30 Labs: Laboratory Last Values WBC 44.3 X10*3/uL (4.8-10.8) H* 06/16/25 06:30 RBC 2.56 X10*6/uL (4.60-5.80) L 06/16/25 06:30 Hgb 8.5 g/dl (14.0-18.0) L 06/16/25 06:30 Hct 27.2 % (42.0-52.0) L 06/16/25 06:30 MCV 106.3 fL (80.0-98.0) H 06/16/25 06:30 MCH 33.2 pg (27.0-33.0) H 06/16/25 06:30 MCHC 31.3 g/dl (31.0-36.0) 06/16/25 06:30 RDW 20.7 % (11.0-16.0) H 06/16/25 06:30 Plt Count 18 X10*3/uL (160-400) L* 06/16/25 06:30 MPV Not Reportable 06/16/25 06:30 Immature Gran % (Auto) 4.2 % (0.0-0.4) H 06/15/25 06:44 Neut % (Auto) 79.3 % (45-73) H 06/15/25 06:44 Lymph % (Auto) 3.6 % (20-40) L 06/15/25 06:44 Louisa % (Auto) 12.6 % (2-11) H 06/15/25 06:44 Eos % (Auto) 0.0 % (0-4) 06/15/25 06:44 Baso % (Auto) 0.3 % (0-2) 06/15/25 06:44 Lymph # (Auto) 1.2 X10*3/uL (1.2-4.9) 06/15/25 06:44 Louisa # (Auto) 4.3 X10*3/uL (0.1-1.2) H 06/15/25 06:44 Eos # (Auto) 0.0 X10*3/uL (0.0-0.4) 06/15/25 06:44 Baso # (Auto) 0.1 X10*3/uL (0.0-0.2) 06/15/25 06:44 Abs Immat Gran (auto) 1.42 X10*3/uL (0.00-0.03) H 06/15/25 06:44 Absolute Neuts (auto) 26.7 x10*3/uL (2.0-8.3) H 06/15/25 06:44 Absolute Nucleated RBC 0.000 X10*3/uL (0.0-0.012) 06/16/25 06:30 Nucleated RBC % (auto) 0.0 /100WBC (0.0-0.2) 06/16/25 06:30 Neutrophils % (Manual) 82 % (45-73) H 06/14/25 22:46 Band Neutrophils % 5 % (3-5) 06/14/25 22:46 Lymphocytes % (Manual) 2 % (20-40) L 06/14/25 22:46 Monocytes % (Manual) 11 % (2-11) 06/14/25 22:46 Abs Neuts (Manual) 31.1 X10*3/uL (2.0-8.3) H 06/14/25 22:46 Lymphocytes # (Manual) 0.7 X10*3/uL (1.2-4.9) L 06/14/25 22:46 Monocytes # (Manual) 3.9 X10*3/uL (0.1-1.2) H 06/14/25 22:46 Dohle Bodies PRESENT 06/14/25 22:46 Platelet Estimate DECREASED (NORMAL) 06/14/25 22:46 Plt Morphology Comment NORMAL 06/14/25 22:46 RBC Morphology NOTED 06/14/25 22:46 Polychromasia 1+ (0-2) /OIF 06/14/25 22:46 Microcytosis 1+ (5-14) /OIF 06/14/25 22:46 Macrocytosis 1+ (5-14) /OIF 06/14/25 22:46 Spherocytes 1+ (0-2) /OIF 06/14/25 22:46 Ovalocytes 1+ (5-14) /OIF 06/14/25 22:46 Smear Tech's Comments MANUAL DIFF 06/14/25 22:46 PT 14.4 SEC (10.9-12.4) H 06/14/25 22:46 INR 1.3 (0.9-1.1) H 06/14/25 22:46 VBG pH 7.38 (7.32-7.43) 06/14/25 22:55 VBG pCO2 28 mmHg 06/14/25 22:55 VBG pO2 70 mmHg 06/14/25 22:55 VBG HCO3 17 mmol/L (22-26) L 06/14/25 22:55 VBG O2 Saturation 93.0 % 06/14/25 22:55 VBG Base Excess -6.2 mmol/L 06/14/25 22:55 Sodium 140 mmol/L (135-145) 06/16/25 06:30 Potassium 5.3 mmol/L (3.3-5.1) H 06/16/25 06:30 Chloride 112 mmol/L (96-108) H 06/16/25 06:30 Carbon Dioxide 17 mmol/L (22-29) L 06/16/25 06:30 Anion Gap 16 (12-20) 06/16/25 06:30 BUN 56 mg/dL (9-16) H 06/16/25 06:30 Creatinine 1.69 mg/dL (0.5-1.4) H 06/16/25 06:30 Estim Creat Clear Calc 31.5 06/16/25 06:30 Estimated GFR 39 06/16/25 06:30 POC Glucose 181 mg/dL (60-115) H 06/15/25 04:10 Random Glucose 320 mg/dL (60-115) H 06/16/25 06:30 Lactic Acid 1.7 mmol/L (0.5-2.0) 06/14/25 22:46 Calcium 8.2 mg/dL (8.4-10.2) L 06/16/25 06:30 Magnesium 1.8 mg/dL (1.6-2.6) 06/14/25 22:46 Total Bilirubin 0.7 mg/dL (0.0-1.0) 06/15/25 06:43 Direct Bilirubin 0.4 mg/dL (0.0-0.5) 06/14/25 22:46 AST 35 U/L (5-37) 06/15/25 06:43 ALT 38 U/L (0-40) 06/15/25 06:43 Alkaline Phosphatase 161 U/L (39-117) H 06/15/25 06:43 Troponin I High Sens 14.0 ng/L (<3.5-35.0) 06/14/25 22:46 B-Natriuretic Peptide 894 pg/mL (<100) H 06/14/25 22:46 Total Protein 6.0 g/dL (6.5-8.0) L 06/15/25 06:43 Albumin 3.4 g/dL (3.5-5.0) L 06/15/25 06:43 Urine Color Yellow 06/14/25 23:38 Urine Appearance Cloudy 06/14/25 23:38 Urine pH 5.0 (5.0-9.0) 06/14/25 23:38 Ur Specific [place] 1.020 (1.005-1.025) 06/14/25 23:38 Urine Protein 30 (1+) mg/dL (Neg-Trace) H 06/14/25 23:38 Urine Glucose (UA) >=1000 mg/dL (Negative) H 06/14/25 23:38 Urine Ketones Negative mg/dL (Negative) 06/14/25 23:38 Urine Blood Trace (Negative) H 06/14/25 23:38 Urine Nitrite Negative (Negative) 06/14/25 23:38 Ur Leukocyte Esterase Negative (Negative) 06/14/25 23:38 Urine RBC 0-2 /HPF (0-2) 06/14/25 23:38 Urine WBC 0-5 /HPF (0-5) 06/14/25 23:38 Ur Squamous Epith Cells 0-2 /HPF (0-2) 06/14/25 23:38 Urine Bacteria Trace (None Seen) 06/14/25 23:38 Hyaline Casts 0-2 /LPF (0-2) 06/14/25 23:38 Urine Yeast Present 06/14/25 23:38 Nasal Screen MRSA (PCR) NEGATIVE (Negative) 06/15/25 08:29 Nasal S. aureus Screen NEGATIVE (Negative) 06/15/25 08:29 Nasal MRSA/S.aureus Interp SEE NOTE 06/15/25 08:29 Influenza Type A (PCR) NEGATIVE (Negative) 06/14/25 22:46 Influenza Type B (PCR) NEGATIVE (Negative) 06/14/25 22:46 RSV RNA Qual (PCR) NEGATIVE (Negative) 06/14/25 22:46 SARS-CoV-2 RNA (RT-PCR) NEGATIVE (Negative) 06/14/25 22:46 Blood Type O Positive 06/15/25 08:37 Antibody Screen NEGATIVE 06/15/25 08:37 Assessment and Plan Patient Active problem list reviewed?: Yes (1) CMML (chronic myelomonocytic leukemia) Status: Acute Assessment and plan: This is a 80 year old male with a complex medical history including prostate ca s/p radical prostatectomy 20 years ago, nstemi in August,, CAD, heart failure, atrial fibrillation on Eliquis, DM2, CKD stage 3, asbestosis. Marked leukocytosis with neutrophilic predominance and myeloid left shift (WBC 06678) with anemia and thrombocytopenia, elevated LDH and uric acid.Picture highly suspicious for Myeloproliferative / myelodysplastic process such as CML, CMML, less likely acute leukemia. Anemia likely secondary to marrow disease and chronic illness. Thrombocytopenia likely reflects marrow process. He was initially started on cytoreductive therapy with Hydrea 500 mg PO daily. With that the leukocytosis improved. Anemia stablilized, thrombocytopenia worsened slightly. DATA BASE: Blood flow cytometry performed 04/24/2025 showed nonspecific T-cell dominant profile with small CD4/CD8 double negative T-cell population. No increase in blasts or CD34 positive events. Diagnostic features of B-cell lymphoproliferative disorder not seen. CT abdomen/pelvis in March 2025 showed splenomegaly measuring 15.5 cm. 3 mm stone in the distal right ureter causing mild hydroureteronephrosis. Lobular liver contour may indicate cirrhosis. Bcr-ABL1 translocation not detected. Bone marrow biopsy performed 05/28/2025 showed suboptimal but hypercellular marrow with trilineage dyspoietic maturation. Blasts are 5% in the aspirate. Findings in keeping with myeloid neoplasm, combined MDS/MPN or chronic myelomonocytic leukemia. Karyotype revealed 46XY, normal male karyotype. Flow cytometry showed nonspecific T-cell dominant profile no increase in blasts or CD34 positive events diagnostic features of B-cell lymphoproliferative disorder not seen. Molecular studies revealed JAK2 V 617 F mutation, SRSF2 and TET2 mutations. No alteration seen in CALR, FLT3, IDH1/IDH2, NPL, [employer] M1 and TP53 Repeat CBC from 06/06: platelet counts below 30 K. He was advised to hold Hydrea as well as Eliquis and Plavix. Diagnosis, prognosis and management of CMML, MDS/MPL overlap syndrome were discussed. IPSS-M score -0.40 which is moderate low. He has high-risk mutations associated with poor prognosis. However TET2 mutation is associated with response to hypomethylating agent. He was on hydroxyurea which made his anemia and thrombocytopenia worse. He was therefore advised to stop this. He was started on hypomethylating agent with 5 azacitidine 75 milligram/meter squared per day for 7 days of a 28 day cycle. Side effects of treatment including risk of cytopenias, infection and GI toxicity were discussed. He received the treatment last week. He was brought in to the hospital due to SOB and weakness. EMS noted patient's pulse ox was 65% on room air. He received a non-rebreather and sats improved to the mid 90s. Pt was not altered or lethargic. He has been off his Eliquis due to low platelet count. Database: 06/15. CBC: WBC 33.7, HGB 8.7, HCT 28, PLT 17. 7/26. CBC: WBC 36, HGB 9.3, HCT 29, PLT 24. 7/24. Platelet 32. CT Chest from 06/15: Bilateral multifocal airspace opacities and pleural effusions. Findings may represent sequelae of infection, inflammation, pneumonitis in the acute setting. Recommend follow-up evaluation to resolution with particular attention to the left upper lobe opacities, to exclude underlying neoplasm. Picture is consistent with a pneumonia, the setting of immunosuppression from underlying CMML. Doubt related to treatment since he was just started on it last week. He has been started on Zosyn and vancomycin. PLAN: Agree with empiric broad-spectrum antibiotics. Consider bronch/BAL once stable. Trial of IV Steroids. Transfuse platelets if count less than 10 or for bleeding. Red blood cell transfusion for hemoglobin less than 8. I discussed with patient as well as his son Emigdio. Patient was again not happy about staying in the hospital. Patient and son were updated about seriousness of the situation and need to stay in the hospital. - Time Spent With Patient Time Spent with Patient (in minutes): 15
--- NOTE | 2025-06-16 11:09 | MHC.SLORD ---
Speech Language Pathology Order Status: Pt denies dysphagia, MD and RN consulted, no issues noted with pt PO tolerance, order d/c'd.
[2025-06-16 12:33] LABS: Uric Acid 5.5 mg/dL (3.4-7.0)
--- NOTE | 2025-06-16 13:27 | PM.CNNEP ---
History of Present Illness Reason for Consult Consult date: 06/16/25 Chief Complaint Chief complaint: Hypoxia, abnormal CT chest. History of Present Illness Narrative: 80 y/o male with a medical history of HTN, gout, afib, prediabetes, CKD3, COPD, asbestosis, prostate CA s/p prostatectomy, NSTEMI, CAD, HFrEF, recent dx of CML MDS/MPN, s/p bone marrow transplant, recently started on azactacitidine chemo agent about within the last week. 06/15 presented with weakness and shortness of breath. CXR suspicious for pneumonia, ?HD exacerbation. BNP in 800s. Nephrology consulted for TALA on CKD and AG metabolic acidosis. creatinine is around baseline level. Today is 1.69. Baseline between 1.45-1.95 over last ~6 months. serum bicarb 17 today, AG mildly elevated at 16. Patient reports he is feeling ok today. Reports breathing is comfortable (on NC). Denies chest pain, abdominal/flank pain, lower extremity swelling, denies urinary symptoms. Denies other symptoms/concerns. 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 Atrial fibrillation CKD stage 3 secondary to diabetes COPD exacerbation Atrial fibrillation with RVR Sciatica Prediabetes Asbestosis Chronic cough Surgical History Surgical History (Updated 06/15/25 @ 01:25 by CHUCK Courtney-[place]) Stented coronary artery S/P cardiac cath History of colonoscopy (~10/27/16) Hx of cardiac cath Social History Social History Household Members: Unknown / Unable to assess Housing: Unknown / Unable to assess Do you presently have visiting nurse or other home services: No Alcohol intake: current Alcohol intake frequency: holidays/special occasions only Patient Tobacco Use Status: Former Tobacco user Smoked in Last 30 Days: No Patient Interested in Nicotine Replacement: No Patient Given Instructions on How to Stop Smoking: No Second Hand Smoke Exposure: No Use of substances other than those prescribed or required for medical reasons: No Currently Displaying Signs/Symptoms of Drug Intoxication Withdrawal: No Have you been hit, kicked, punched, or otherwise hurt by someone within the past year? If so, by whom?: No Do you feel safe in your current relationship?: No Current Relationship Is there a partner from a previous relationship who is making you feel unsafe now?: No Are you made to feel afraid or neglected: No Advance Directives: Yes Advance Directives on File: Yes Advance Directives Date on File: 09/13/24 Do you have a plan to hurt others: No Plan Recently lost weight without trying: No Nutrition Risks: On aspiration precautions Poor oral hygiene: No service: No Current occupational status: retired and disabled Travel History Ebola Risk: Travel/Contact With Anyone From Affected Area/s: No Has Patient Experienced Ebola Symptoms: No Meds Allergies Allergy/AdvReac Type Severity Reaction Status Date / Time No Known Allergies Allergy Verified 06/14/25 22:39 Active Medications: Current Medications Acetaminophen (Acetaminophen 325 Mg Tablet) 650 mg PO Q6H PRN PRN Reason: Pain, Mild 1-3,fever,headache Last Admin: 06/15/25 02:16 Dose: 650 mg Albuterol/Ipratropium (Albuterol/Iprat 2.5/0.5mg 3 Ml Ampul.Neb) 3 ml INHALE RQ4H PRN PRN Reason: Shortness of Breath/Wheezing Allopurinol (Allopurinol 100 Mg Tablet) 100 mg PO DAILY [facility] Last Admin: 06/16/25 07:49 Dose: 100 mg Atorvastatin Calcium (Atorvastatin Calcium 40 Mg Tablet) 40 mg PO BEDTIME [facility] Last Admin: 06/15/25 20:22 Dose: 40 mg Calcium Carbonate (Calcium Carbonate 750 Mg Tab.Chew) 750 mg PO Q4H PRN PRN Reason: Heartburn Guaifenesin (Guaifenesin 200 Mg/10 Ml 10 Ml Liquid) 10 ml PO Q4H PRN PRN Reason: Cough Last Admin: 06/15/25 23:21 Dose: 10 ml Piperacillin Sod/Tazobactam (Sod 2.25 gm/ Sodium Chloride) 50 mls @ 100 mls/hr IV Q6H [facility] Last Infusion: 06/16/25 09:48 Dose: Infused Vancomycin HCl 750 mg/ Sodium (Chloride) 265 mls @ 265 mls/hr IV Q24H [facility] Last Infusion: 06/16/25 00:21 Dose: Infused Lorazepam (Lorazepam 0.5 Mg Tablet) 0.5 mg PO Q8H PRN PRN Reason: Anxiety Last Admin: 06/15/25 01:52 Dose: 0.5 mg Magnesium Hydroxide (Milk Of Magnesia 30 Ml Oral.Susp) 30 ml PO DAILY PRN PRN Reason: Constipation Melatonin (Melatonin 3 Mg Tablet) 6 mg PO BEDTIME PRN PRN Reason: Insomnia Methylprednisolone Sodium Succinate (Methylprednisolone Sod Succ 40 Mg/Ml Vial) 40 mg IVPUSH Q24H [facility] Last Admin: 06/15/25 14:39 Dose: 40 mg Metoprolol Tartrate (Metoprolol Tartrate 25 Mg Tablet) 25 mg PO BID [facility]; Protocol Last Admin: 06/16/25 07:49 Dose: 25 mg Ondansetron HCl (Ondansetron Hcl 4 Mg/2 Ml Vial) 4 mg IVPUSH Q8H PRN PRN Reason: Nausea and Vomiting Pharmacy Consult (Consult Rx Vancomycin Dosing) 1 each MISCELLANE DAILY PRN PRN Reason: Consult order Polyethylene Glycol (Polyethylene Glycol 3350 17 Gm Powd.Pack) 17 gm PO DAILY PRN PRN Reason: Constipation Senna (Sennosides 8.6 Mg Tablet) 17.2 mg PO BEDTIME [facility] Last Admin: 06/15/25 20:22 Dose: 17.2 mg Sodium Bicarbonate (Sodium Bicarbonate 650 Mg Tablet) 650 mg PO BID [facility] Last Admin: 06/16/25 07:49 Dose: 650 mg Sodium Chloride (0.9 % Sodium Chloride Flush 3 Ml Syringe) [facility] Last Admin: 06/16/25 07:48 Dose: 3 ml Tramadol HCl (Tramadol Hcl 50 Mg Tablet) 50 mg PO TID PRN PRN Reason: moderate pain Home Medications ?Medication ?Instructions ?Recorded ?Confirmed ?Last Taken ?Type fluticasone furoate 200 1 inh inhalation DAILY PRN 06/15/25 06/15/25 Unknown History mcg/actuation blister powder for Shortness Of Breath Or Wheezing inhalation (Arnuity Ellipta) tramadol 50 mg tablet 50 mg PO TID PRN moderate pain 06/15/25 06/15/25 Unknown History Physical Exam Vital Signs: Last Vital Signs Temp 97.8 F 06/16/25 13:09 Pulse 61 06/16/25 13:09 Resp 17 06/16/25 13:09 BP 149/67 H 06/16/25 13:09 Pulse Ox 96 06/16/25 11:29 O2 Del Method Nasal Cannula 06/16/25 11:29 O2 Flow Rate 1.5 06/16/25 11:29 BMI result Body Mass Index 26.6 Const General: no acute distress, alert and awake Resp Effort & Inspection: normal respiratory effort and able to speak in complete sentences Auscultation: clear to auscultation bilaterally Cardio Rate: regular rate Rhythm: regular rhythm Heart sounds: S1 normal heart sound present and S2 normal heart sound present GI Palpation (GI): Soft to palpation and nontender General: Yes no CVA tenderness Back/Spine/Pelvis Back: no CVA tenderness Skin Rashes: no rashes Extrem General: Yes edema Results Lab Results 06/16/25 06:30 06/16/25 06:30 Lab results: Chemistry 06/14/25 06/15/25 06/16/25 22:46 06:43 06:30 Sodium 142 140 140 Potassium 4.5 5.1 5.3 H Carbon Dioxide 17 L 16 L 17 L BUN 51 H 53 H 56 H Creatinine 1.82 H 1.78 H 1.69 H Calcium 8.5 8.0 L 8.2 L Phosphorus 06/16/25 12:06 Sodium Potassium Carbon Dioxide BUN Creatinine Calcium Phosphorus 4.9 H Hematology 06/14/25 06/15/25 06/16/25 22:46 06:44 06:30 WBC 35.7 H* 33.7 H* 44.3 H* Hgb 9.3 L 8.7 L 8.5 L Plt Count 24 L 17 L* 18 L* Urinalysis 06/14/25 23:38 Urine Color Yellow Urine Appearance Cloudy Urine pH 5.0 Ur Specific [place] 1.020 Urine Protein 30 (1+) H Urine Glucose (UA) >=1000 H Urine Ketones Negative Urine Blood Trace H Urine Nitrite Negative Ur Leukocyte Esterase Negative Urine RBC 0-2 Urine WBC 0-5 Ur Squamous Epith Cells 0-2 Hyaline Casts 0-2 Assessment and Plan (1) CKD (chronic kidney disease) stage 3, GFR 30-59 ml/min: Qualifiers: Chronic kidney disease stage 3 subtype: stage 3a (GFR 45-59) Qualified Code(s): N18.31 - Chronic kidney disease, stage 3a Status: Acute (2) Metabolic acidosis: Status: Acute Plan Patient with baseline CKD here with dyspnea in setting of CML renal function is at baseline, will continue to monitor. mixed metabolic acidosis- continue to monitor for now. Likely excess chloride is contributing, though given patient's sugars would not recommend switching to D5W at this time. If worsening tomorrow may consider oral bicarb. Recommend checking beta hydroxybuterate, uric acid, phosphorous, repeat lactate. Recommend close I&Os, daily weights recommend dialy renal function and electrolyte studies avoid nephrotoxins continue supportive care Discussed with Dr Farfan. Procedures Date of Service Date of Service: 06/16/25
--- NOTE | 2025-06-16 16:00 | P.PNIM_ITS ---
Subjective Subjective Date of Service: 06/16/25 Interval History: pneumonitis Review of Systems sob seems improving no bleeding Review of Systems: Yes all other systems are reviewed and are negative Physical Exam 2 Exam: Exam: Appearance: Alert.? Oriented X3.? cvs: rrr, [id number] . res: air entry slightly improving, diminshed at bases. abd: no rebound or guarding ,nt, bs present. ext pulses present , no cyanosis . neuro: axo3 , nonfocal. Vital Signs: Vital Signs: Last Vital Signs Temp 97.1 F 06/16/25 15:50 Pulse 76 06/16/25 15:50 Resp 18 06/16/25 15:50 BP 159/75 H 06/16/25 15:50 Pulse Ox 98 06/16/25 15:50 O2 Del Method Nasal Cannula 06/16/25 15:50 O2 Flow Rate 2 06/16/25 15:50 BMI result Body Mass Index 26.6 Const: General: comfortable and no acute distress O rientation/consciousness: patient oriented x3 HEENT: Head: Yes normocephalic Mouth: Normal oral and palatal mucosa present Eyes: EOM: EOMs intact bilaterally Neck: Neck: Yes supple Resp: Auscultation: clear to auscultation bilaterally Cardio: Jugular venous distension: no JVD Rate: regular rate GI: Palpation (GI): Soft to palpation Auscultation: normal bowel sounds : General: Yes no CVA tenderness Back/Spine/Pelvis: Back: no CVA tenderness Skin: General skin exam: no rashes or lesions noted Neuro: General: patient oriented x3 and moves all extremities Extrem: General: Yes no pedal edema Objective Data Active Medications Acetaminophen (Acetaminophen 325 Mg Tablet) 650 mg PO Q6H PRN PRN Reason: Pain, Mild 1-3,fever,headache Last Admin: 06/15/25 02:16 Dose: 650 mg Documented By: SERRANX Albuterol/Ipratropium (Albuterol/Iprat 2.5/0.5mg 3 Ml Ampul.Neb) 3 ml INHALE RQ4H PRN PRN Reason: Shortness of Breath/Wheezing Allopurinol (Allopurinol 100 Mg Tablet) 100 mg PO DAILY [facility] Last Admin: 06/16/25 07:49 Dose: 100 mg Documented By: JANAK Atorvastatin Calcium (Atorvastatin Calcium 40 Mg Tablet) 40 mg PO BEDTIME [facility] Last Admin: 06/15/25 20:22 Dose: 40 mg Documented By: KARLEE Calcium Carbonate (Calcium Carbonate 750 Mg Tab.Chew) 750 mg PO Q4H PRN PRN Reason: Heartburn Guaifenesin (Guaifenesin 200 Mg/10 Ml 10 Ml Liquid) 10 ml PO Q4H PRN PRN Reason: Cough Last Admin: 06/15/25 23:21 Dose: 10 ml Documented By: KARLEE Piperacillin Sod/Tazobactam (Sod 2.25 gm/ Sodium Chloride) 50 mls @ 100 mls/hr IV Q6H [facility] Last Infusion: 06/16/25 15:09 Dose: Infused Documented By: JANAK Vancomycin HCl 750 mg/ Sodium (Chloride) 265 mls @ 265 mls/hr IV Q24H [facility] Last Infusion: 06/16/25 00:21 Dose: Infused Documented By: KARLEE Lorazepam (Lorazepam 0.5 Mg Tablet) 0.5 mg PO Q8H PRN PRN Reason: Anxiety Last Admin: 06/15/25 01:52 Dose: 0.5 mg Documented By: MONIK Magnesium Hydroxide (Milk Of Magnesia 30 Ml Oral.Susp) 30 ml PO DAILY PRN PRN Reason: Constipation Melatonin (Melatonin 3 Mg Tablet) 6 mg PO BEDTIME PRN PRN Reason: Insomnia Methylprednisolone Sodium Succinate (Methylprednisolone Sod Succ 40 Mg/Ml Vial) 40 mg IVPUSH Q24H [facility] Last Admin: 06/16/25 14:33 Dose: 40 mg Documented By: JANAK Metoprolol Tartrate (Metoprolol Tartrate 25 Mg Tablet) 25 mg PO BID [facility]; Protocol Last Admin: 06/16/25 07:49 Dose: 25 mg Documented By: JANAK Ondansetron HCl (Ondansetron Hcl 4 Mg/2 Ml Vial) 4 mg IVPUSH Q8H PRN PRN Reason: Nausea and Vomiting Pharmacy Consult (Consult Rx Vancomycin Dosing) 1 each MISCELLANE DAILY PRN PRN Reason: Consult order Polyethylene Glycol (Polyethylene Glycol 3350 17 Gm Powd.Pack) 17 gm PO DAILY PRN PRN Reason: Constipation Senna (Sennosides 8.6 Mg Tablet) 17.2 mg PO BEDTIME [facility] Last Admin: 06/15/25 20:22 Dose: 17.2 mg Documented By: KARLEE Sodium Bicarbonate (Sodium Bicarbonate 650 Mg Tablet) 650 mg PO BID [facility] Last Admin: 06/16/25 07:49 Dose: 650 mg Documented By: JANAK Sodium Chloride (0.9 % Sodium Chloride Flush 3 Ml Syringe) 3 ml IVFLUSH QSHIFT [facility] Last Admin: 06/16/25 07:48 Dose: 3 ml Documented By: JANAK Tramadol HCl (Tramadol Hcl 50 Mg Tablet) 50 mg PO TID PRN PRN Reason: moderate pain Labs 06/16/25 06:30 06/16/25 06:30 Labs: Laboratory Results - last 24 hr 06/15/25 06/16/25 06/16/25 08:37 06:30 12:06 MCV 106.3 H MCH 33.2 H MCHC 31.3 RDW 20.7 H Plt Count 18 L* MPV Not Reportable Absolute Nucleated RBC 0.000 Nucleated RBC % (auto) 0.0 Anion Gap 16 Estim Creat Clear Calc 31.5 Estimated GFR 39 Random Glucose 320 H Uric Acid 5.5 Calcium 8.2 L Phosphorus 4.9 H Lactate Dehydrogenase 397 H 334 H Beta-Hydroxybutyrate 0.13 Blood Type O Positive Antibody Screen NEGATIVE Microbiology Microbiology Results: Microbiology 06/14/25 22:48 Blood Culture - Preliminary Blood - Venous No growth after 24 hours. 06/14/25 22:48 Blood Culture - Preliminary Blood - Venous No growth after 24 hours. 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 Sepsis secondary to acute exacerbation of pneumonitis with acute hypoxic respiratory failure sob seems improving WBC count fluctuating(?steriod use), blood cultures @24hrs Acute hypoxic respiratory failure due to above will wean oxygen as tolerated. chest CT :Bilateral multifocal airspace opacities and pleural effusions. Findings may represent sequelae of infection, inflammation, pneumonitis in the acute setting. Recommend follow-up evaluation to resolution with particular attention to the left upper lobe opacities, to exclude underlying neoplasm. echo 09/12 showed EF 40-45%, regional wall motion abnormality and abnormal diastolic function continue IV vanco/zosyn, iv steriods pulm following chf -etiology unclear BNP 894 Echo ordered Patient does not use oxygen at home Lasix IV X1 in ED seems euvolemic , hold lasix. 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 on new chemotherapeutic agent (vidaza azacitidine) started 06/06/2025 Patient no longer on Hydrea Leukocytosis flactuating, no bandemia (previous WBC 60) Anemia 9.3/29.1, no indication for transfusion Thrombocytopenia 28 - jose remains on hold Oncology outpatient follow up -added 1 unit platelets ,continue iv steriods 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 follow bmp. Chronic Thrombocytopenia : moniter cbc closely. AFib : now NSR-hold Eliquis ,continue metoprolol. CAD, hx recent NSTEMI 08/2024, s/p RENE mid RCA:hold Plavix. continue metoprolol and atorvastatin ? hyperglycemia likley due to steriods use: check poc. Hba1c levels 5.4 diabetic diet Full code - previously was DNR/DNI, discussion with patient and son, patient would like to be full code VTE prophylaxis: Jose Patient with sepsis secondary to acute exacerbation of bronchiectasis with acute hypoxic respiratory failure, thrombocytopenia therefore will require continued inpatient hospitalization .antibiotics. Quality Stroke Does the patient have a stroke diagnosis?: No Reason for No Anti-thrombotic by Day Two: Contraindicated (low PLT count ) VTE Prior VTE?: No VTE Risk Level:: Medical - moderate - high VTE Device Contraindication: N/A - Device Ordered VTE Drug Contraindication: Treatment Not Indicated
--- NOTE | 2025-06-16 16:12 | MHC.CM.PN ---
PER MD ROUNDS, PT EXPECTED TO REMAIN IN PT FOR 2-3 DAYS DCP: HOME VIA FAMILY TRANSPORT
[2025-06-16 16:15] LABS: Hemoglobin A1C 82.2908 umol/L; Total Hemoglobin (HGBA1C) 2292.1722 umol/L
[2025-06-16 16:18] LABS: Glucose, Whole Blood 242 mg/dL (60-115)
--- NOTE | 2025-06-16 17:00 | CA_ITS ---
Transthoracic Echocardiogram Patient (Last, First, Middle): Aec Berkowitz W Gender: Male Date of : 1945 Age: 80 Procedure Date: 06/16/2025 Procedure Type: Transthoracic [place] [facility] [place]: 170.18 cm Weight: 63.5 kg BSA: 1.74 m2 Heart Rate: bpm BP: 122 / 60 mmHg Voip Engineer: Referring MD: Ernesto Todd MD [employer] Offbearer: Anastacio Chapa MD Symptoms: sob ?chf Study Quality: Adequate ECG Rhythm: Sinus Conclusions: - 1. Mildly to moderately reduced LV ejection fraction 40-45% with grade 2 diastolic dysfunction 2. Mildly dilated left atrium 3. Cardiac valvular Dopplers within normal limits 4. Normal measured RV systolic pressure 5. No gross pericardial effusion Findings Left Ventricle Normal left ventricular cavity size. There is normal left ventricular wall thickness. The left ventricular systolic function is mild to moderately decreased. Spectral Doppler is indicative of a pseudonormal filling pattern. Elevated left atrial and left ventricular end-diastolic pressures. E/E prime ratio is >15, consistent with elevated filling pressures. Evidence suggests grade II (moderate) diastolic dysfunction. Wall Motion Rest Echo Findings The basal inferior, basal inferoseptal, and basal inferolateral segments are akinetic. All other scored wall segments showed normal motion. Right Ventricle Normal right ventricular cavity size and systolic function. Atria The left atrium is mildly dilated. There is no evidence of interatrial shunt. The right atrium is normal in size. Aortic Valve Normal aortic valve structure and function. There is no aortic valve stenosis. There is no aortic valve regurgitation. Mitral Valve There is mild anterior and posterior mitral leaflet thickening. There is trace mitral valve regurgitation. There is no mitral valve stenosis. Pulmonic Valve The pulmonic valve was not well visualized. Tricuspid Valve Normal tricuspid valve structure. There is trace tricuspid valve regurgitation. The right ventricular systolic pressure is 22 mmHg. Normal right atrial pressure. There is no evidence of pulmonary hypertension. Great Vessels The pulmonary artery was not well visualized. There is no dilatation of the ascending aorta measuring 3.60 cm. Small plaque is seen in the sino tubular ridge. Venous The inferior vena cava is normal in size. Pericardium/Pleural There is no evidence of pericardial effusion. Prior Study Comparison Changes noted compared to prior study dated: 01/07/2025. LV ejection fraction in his marginally reduced Measurements 2D Linear Measurements IVSd: 1.01 0.6-0.9/0.6-1.0 cm LVIDd: 5.12 3.9-5.3/4.2-5.9 cm LVIDd Index: 2.94 2.4-3.2/2.2-3.1 cm/m2 LVIDs: 3.80 2.0-3.6 cm LVPWd: 1.08 0.7-1.1 cm Ao Root: 3.30 2.1-3.5 cm LA Diam: 3.30 2.7-3.8/3.0-4.0 cm LAIDs Index: 1.90 1.5-2.3 cm/m2 LV Mass: 250.21 67-162/88-224 g LV Mass Index: 143.80 43-95/49-115 g/m2 LVOT Diam: 2.10 3.0+(-)1.3 cm 2D Systolic Function EF 4C: 45.90 >55% EF 2C: 44.20 >55% EF BiP: 43.90 >55% Mitral Valve MV Pk E: 0.82 MV PK A: 0.48 MV Decel Time: 250.00 E/A: 1.70 E'Lateral: 7.83 E'Medial: 3.81 E/E' Med: 21.60 E/E' Lat: 10.50 PHT: 73.00 MVA PHT: 3.01 Decel [place]: 3.29 Aortic Valve AoV Pk Kel: 1.34 AoV Mn Kel: 0.92 AoV VTI: 0.40 AoV Pk Grad: 7.00 Aov Mn Grad: 4.00 RENETTA Cont.VTI: 1.45 LVOT LVOT Pk Kel: 0.54 LVOT Mn Kel: 0.35 LVOT VTI: 0.17 LVOT Pk Grad: 1.00 LVOT Mn Grad: 1.00 LVOT Diam: 2.10 LVOT Area: 3.46 Diastolic Function MV Pk E: 0.82 MV Pk A: 0.48 E/A: 1.70 E'Medial: 3.81 E/E' Med: 21.60 E' Laterial: 7.83 E/E' Lat: 10.50 Right Ventricle TAPSE (mm): 21.00 Tricuspid Valve TR Pk Kel: 1.88 TR Pk Grad: 14.00 RA Press: 8.00 RVSP: 22.00 Great Vessels Aorta Ao Root-2D: 3.30 2.0-3.7 cm Ao Asc: 3.60 2.1-3.4 cm Pulmonary Valve PV Pk Kel: 0.73 Peak PV Grad: 2.00 Updated in Other Vendor System with Status of Final Anastacio Chapa MD electronically signed on 06/17/2025 8:56:40 AM with status of Final
[2025-06-16 21:41] LABS: Glucose, Whole Blood 303 mg/dL (60-115)
--- NOTE | 2025-06-16 21:44 | HE.PHANOTE ---
RE: vanco Level on 06/16 came back at 12.5, renal function improved slightly so increased to 1000mg Q24H with predicted trough of 18 mg/L, AUC of 546 mg/L. Next level 06/18 @2000
[2025-06-17] VITALS (7 sets, daily range): BP systolic 149–169; BP diastolic 70–73; PULSE 51–67; RESP 16–20; TEMP 36.1–36.4; O2SAT 95–100
[2025-06-17 00:20] LABS: Glucose, Whole Blood 254 mg/dL (60-115)
[2025-06-17 07:17] LABS: Creatinine Clr Calc Pharmacy 33.9; Estimated Glomerular Filt Rate 43
[2025-06-17 07:39] LABS: Glucose, Whole Blood 184 mg/dL (60-115)
[2025-06-17 07:54] LABS: Anion Gap 15 (12-20); Blood Urea Nitrogen 49 mg/dL (9-16); Calcium 8.4 mg/dL (8.4-10.2); Carbon Dioxide 17 mmol/L (22-29); Chloride 115 mmol/L (96-108); Potassium 4.7 mmol/L (3.3-5.1); Sodium 142 mmol/L (135-145)
[2025-06-17 08:18] LABS: Hemoglobin 8.3 g/dl (14.0-18.0); NRBC Abs Auto 0.000 X10*3/uL (0.0-0.012); NRBC Pct Auto 0.0 /100WBC (0.0-0.2)
[2025-06-17 08:20] LABS: Hematocrit 26.0 % (42.0-52.0); Mean Corpuscular HGB Conc 31.9 g/dl (31.0-36.0); Mean Corpuscular Hemoglobin 33.6 pg (27.0-33.0); Mean Corpuscular Volume 105.3 fL (80.0-98.0); Red Blood Count 2.47 X10*6/uL (4.60-5.80)
[2025-06-17 08:28] LABS: White Blood Count 38.3 X10*3/uL (4.8-10.8)
[2025-06-17 08:29] LABS: PLT ABN DIST 1; Platelet Count 17 X10*3/uL (160-400)
[2025-06-17] MEDS: 0.9 % Sodium Chloride Flush 3 ML SYRINGE IVFLUSH ×3 (08:50→23:29)
[2025-06-17 11:22] LABS: Glucose, Whole Blood 198 mg/dL (60-115)
[2025-06-17] MEDS: Lactated Ringers 1,000 ML 75 ML IVCONT ×2 (11:38→23:23)
[2025-06-17 12:49] LABS: Reflex Lactate? Lactic Acid Added
[2025-06-17] MEDS: guaiFENesin 200 MG/10 ML 10 ML LIQUID PO (13:46)
[2025-06-17 13:50] LABS: Cancel Lactic Acid Canceled
--- NOTE | 2025-06-17 13:50 | P.PNIM_ITS ---
Subjective Subjective Date of Service: 06/17/25 Interval History: pneumonitis Review of Systems sob seems improving no bleeding Physical Exam 2 Exam: Exam: Appearance: Alert.? Oriented X3.? cvs: rrr, [id number] . res: air entry slightly improving, diminshed at bases. abd: no rebound or guarding ,nt, bs present. ext pulses present , no cyanosis . neuro: axo3 , nonfocal. Vital Signs: Vital Signs: Last Vital Signs Temp 97.6 F 06/17/25 11:16 Pulse 58 06/17/25 11:16 Resp 20 06/17/25 11:16 BP 149/70 H 06/17/25 11:16 Pulse Ox 96 06/17/25 11:16 O2 Del Method Nasal Cannula 06/17/25 11:16 O2 Flow Rate 2 06/17/25 11:16 BMI result Body Mass Index 26.6 Objective Data Active Medications Acetaminophen (Acetaminophen 325 Mg Tablet) 650 mg PO Q6H PRN PRN Reason: Pain, Mild 1-3,fever,headache Last Admin: 06/15/25 02:16 Dose: 650 mg Documented By: MONIK Albuterol/Ipratropium (Albuterol/Iprat 2.5/0.5mg 3 Ml Ampul.Neb) 3 ml INHALE RQ4H PRN PRN Reason: Shortness of Breath/Wheezing Allopurinol (Allopurinol 100 Mg Tablet) 100 mg PO DAILY [facility] Last Admin: 06/17/25 08:52 Dose: 100 mg Documented By: JOSE LUIS Atorvastatin Calcium (Atorvastatin Calcium 40 Mg Tablet) 40 mg PO BEDTIME [facility] Last Admin: 06/16/25 20:08 Dose: 40 mg Documented By: KARLEE Calcium Carbonate (Calcium Carbonate 750 Mg Tab.Chew) 750 mg PO Q4H PRN PRN Reason: Heartburn Ceftriaxone Sodium (Ceftriaxone Sodium 2 Gm Vial) 2 gm IVPUSH Q24H [facility] Last Admin: 06/17/25 10:21 Dose: 2 gm Documented By: JOSE LUIS Dextrose (Dextrose 50 % 25 Gm/50 Ml Syringe) 25 gm IVPUSH Q15M PRN; Protocol PRN Reason: per Hypoglycemia Standing Ord. Glucose (Glucose Gel 15 Gm Gel..Gram.) 15 gm PO Q15M PRN; Protocol PRN Reason: per Hypoglycemia Standing Ord. Guaifenesin (Guaifenesin 200 Mg/10 Ml 10 Ml Liquid) 10 ml PO Q4H PRN PRN Reason: Cough Last Admin: 06/17/25 13:46 Dose: 10 ml Documented By: JOSE LUIS Vancomycin HCl 1,000 mg/ (Sodium Chloride) 270 mls @ 270 mls/hr IV Q24H [facility] Last Infusion: 06/16/25 23:07 Dose: Infused Documented By: KARLEE Lactated Ringer's (Lr) 1,000 mls @ 75 mls/hr IVCONT .[id number] [facility] Stop: 06/18/25 10:00 Last Admin: 06/17/25 11:38 Dose: 75 mls/hr Documented By: JOSE LUIS Insulin Human Lispro (Insulin Lispro 100 Unit/Ml 3 Ml Vial) 0 unit SUBCUT QIDACHS [facility]; Protocol Last Admin: 06/17/25 11:42 Dose: Not Given Documented By: JOSE LUIS Non-Admin Reason: No Insulin Coverage Lorazepam (Lorazepam 0.5 Mg Tablet) 0.5 mg PO Q8H PRN PRN Reason: Anxiety Last Admin: 06/15/25 01:52 Dose: 0.5 mg Documented By: MONIK Magnesium Hydroxide (Milk Of Magnesia 30 Ml Oral.Susp) 30 ml PO DAILY PRN PRN Reason: Constipation Melatonin (Melatonin 3 Mg Tablet) 6 mg PO BEDTIME PRN PRN Reason: Insomnia Methylprednisolone Sodium Succinate (Methylprednisolone Sod Succ 40 Mg/Ml Vial) 40 mg IVPUSH Q24H [facility] Last Admin: 06/16/25 14:33 Dose: 40 mg Documented By: JANAK Metoprolol Tartrate (Metoprolol Tartrate 25 Mg Tablet) 25 mg PO BID [facility]; Protocol Last Admin: 06/17/25 08:51 Dose: 25 mg Documented By: JOSE LUIS Ondansetron HCl (Ondansetron Hcl 4 Mg/2 Ml Vial) 4 mg IVPUSH Q8H PRN PRN Reason: Nausea and Vomiting Pharmacy Consult (Consult Rx Vancomycin Dosing) 1 each MISCELLANE DAILY PRN PRN Reason: Consult order Polyethylene Glycol (Polyethylene Glycol 3350 17 Gm Powd.Pack) 17 gm PO DAILY PRN PRN Reason: Constipation Senna (Sennosides 8.6 Mg Tablet) 17.2 mg PO BEDTIME [facility] Last Admin: 06/16/25 20:09 Dose: 17.2 mg Documented By: KARLEE Sodium Bicarbonate (Sodium Bicarbonate 650 Mg Tablet) 650 mg PO BID [facility] Last Admin: 06/17/25 08:52 Dose: 650 mg Documented By: JOSE LUIS Sodium Chloride (0.9 % Sodium Chloride Flush 3 Ml Syringe) 3 ml IVFLUSH QSHIFT [facility] Last Admin: 06/17/25 08:50 Dose: 3 ml Documented By: JOSE LUIS Tramadol HCl (Tramadol Hcl 50 Mg Tablet) 50 mg PO TID PRN PRN Reason: moderate pain Labs 06/17/25 08:06 06/17/25 06:43 Labs: Laboratory Results - last 24 hr 06/16/25 06/16/25 06/16/25 06:30 16:14 21:00 MCV MCH MCHC RDW Plt Count MPV Absolute Nucleated RBC Nucleated RBC % (auto) Anion Gap Estim Creat Clear Calc Estimated GFR POC Glucose 242 H Random Glucose Estimat Average Glucose 108 Hemoglobin A1c % 5.4 Lactic Acid Calcium Random Vancomycin 12.5 L 06/16/25 06/17/25 06/17/25 21:24 00:15 06:43 MCV MCH MCHC RDW Plt Count MPV Absolute Nucleated RBC Nucleated RBC % (auto) Anion Gap 15 Estim Creat Clear Calc 33.9 Estimated GFR 43 POC Glucose 303 H 254 H Random Glucose 202 H Estimat Average Glucose Hemoglobin A1c % Lactic Acid Calcium 8.4 Random Vancomycin 06/17/25 06/17/25 06/17/25 07:20 08:06 10:46 MCV 105.3 H MCH 33.6 H MCHC 31.9 RDW 20.8 H Plt Count 17 L* MPV Not Reportable Absolute Nucleated RBC 0.000 Nucleated RBC % (auto) 0.0 Anion Gap Estim Creat Clear Calc Estimated GFR POC Glucose 184 H Random Glucose Estimat Average Glucose Hemoglobin A1c % Lactic Acid 2.1 H* Calcium Random Vancomycin 06/17/25 11:14 MCV MCH MCHC RDW Plt Count MPV Absolute Nucleated RBC Nucleated RBC % (auto) Anion Gap Estim Creat Clear Calc Estimated GFR POC Glucose 198 H Random Glucose Estimat Average Glucose Hemoglobin A1c % Lactic Acid Calcium Random Vancomycin Microbiology Microbiology Results: Microbiology 06/14/25 22:48 Blood Culture - Preliminary Blood - Venous No growth after 48 hours. 06/14/25 22:48 Blood Culture - Preliminary Blood - Venous No growth after 48 hours. 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 Sepsis secondary to acute exacerbation of pneumonitis with acute hypoxic respiratory failure sob seems improving WBC count fluctuating(?steriod use), blood cultures @48hrs Acute hypoxic respiratory failure due to above will wean oxygen as tolerated. chest CT :Bilateral multifocal airspace opacities and pleural effusions. Findings may represent sequelae of infection, inflammation, pneumonitis in the acute setting. Recommend follow-up evaluation to resolution with particular attention to the left upper lobe opacities, to exclude underlying neoplasm. echo 09/12 showed EF 40-45%, regional wall motion abnormality and abnormal diastolic function repeat echo done -pending continue IV vanco/zosyn, iv steriods pulm following-continue antibotics vanco(intiaed on 06/17), zosyn switched to ceftriaxone chf -etiology unclear BNP 894 Echo ordered Patient does not use oxygen at home Lasix IV X1 in ED seems euvolemic , hold lasix. 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 if zosyn is contibuting /changed to ceftriaxone). plan : no sign of bleeding cbc daily continue iv steriods 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 follow bmp. Acute lactic acidosis: Seems lactic acid elevated to dehydration/hyperglycemia , no further trending unless clinical deterioration. Chronic Thrombocytopenia : moniter cbc closely. AFib : now NSR-hold Eliquis ,continue metoprolol. CAD, hx recent NSTEMI 08/2024, s/p RENE mid RCA:hold Plavix. continue metoprolol and atorvastatin ? hyperglycemia likley due to steriods use: check poc. Hba1c levels 5.4 diabetic diet added fs with sliding scale coverage Full code - previously was DNR/DNI, discussion with patient and son, patient would like to be full code VTE prophylaxis: mech devices sec to thrombocytopenia Patient with sepsis secondary to acute exacerbation of bronchiectasis with acute hypoxic respiratory failure, thrombocytopenia therefore will require continued inpatient hospitalization .antibiotics. Quality Stroke Does the patient have a stroke diagnosis?: No Reason for No Anti-thrombotic by Day Two: Contraindicated (low PLT count ) VTE Prior VTE?: No VTE Risk Level:: Medical - moderate - high VTE Device Contraindication: N/A - Device Ordered VTE Drug Contraindication: Treatment Not Indicated
--- NOTE | 2025-06-17 13:56 | P.PNNP_ITS ---
Subjective Subjective Date of Service: 06/17/25 Interval history: Patient with newly diagnosed CML here with shortness of breath and weakness. Following for CKD and metabolic acidosis. serum bicarb 17 today, AG 15. Lactic acid 2.1 Patient reports he is feeling ok today. Reports breathing is comfortable (on NC). Denies chest pain, abdominal/flank pain, lower extremity swelling, denies urinary symptoms. Denies other symptoms/concerns. Physical Exam 2 Vital Signs: Vital Signs: Last Vital Signs Temp 97.6 F 06/17/25 11:16 Pulse 58 06/17/25 11:16 Resp 20 06/17/25 11:16 BP 149/70 H 06/17/25 11:16 Pulse Ox 96 06/17/25 11:16 O2 Del Method Nasal Cannula 06/17/25 11:16 O2 Flow Rate 2 06/17/25 11:16 BMI result Body Mass Index 26.6 Const: General: no acute distress, alert and awake Resp: Effort & Inspection: normal respiratory effort and able to speak in complete sentences Auscultation: clear to auscultation bilaterally Cardio: Rate: regular rate Rhythm: regular rhythm Heart sounds: S1 normal heart sound present and S2 normal heart sound present GI: Palpation (GI): Soft to palpation and nontender : General: Yes no CVA tenderness Back/Spine/Pelvis: Back: no CVA tenderness Skin: Rashes: no rashes Extrem: General: Yes edema Objective Data Labs 06/17/25 08:06 06/17/25 06:43 Labs: Laboratory Results - last 24 hr 06/16/25 06/16/25 06/16/25 06:30 16:14 21:00 WBC RBC Hgb Hct MCV MCH MCHC RDW Plt Count MPV Absolute Nucleated RBC Nucleated RBC % (auto) Sodium Potassium Chloride Carbon Dioxide Anion Gap BUN Creatinine Estim Creat Clear Calc Estimated GFR POC Glucose 242 H Random Glucose Estimat Average Glucose 108 Hemoglobin A1c % 5.4 Lactic Acid Lactic Acid F/U @ 2Hr Calcium Random Vancomycin 12.5 L 06/16/25 06/17/25 06/17/25 21:24 00:15 06:43 WBC RBC Hgb Hct MCV MCH MCHC RDW Plt Count MPV Absolute Nucleated RBC Nucleated RBC % (auto) Sodium 142 Potassium 4.7 Chloride 115 H Carbon Dioxide 17 L Anion Gap 15 BUN 49 H Creatinine 1.57 H Estim Creat Clear Calc 33.9 Estimated GFR 43 POC Glucose 303 H 254 H Random Glucose 202 H Estimat Average Glucose Hemoglobin A1c % Lactic Acid Lactic Acid F/U @ 2Hr Calcium 8.4 Random Vancomycin 06/17/25 06/17/25 06/17/25 07:20 08:06 10:46 WBC 38.3 H* RBC 2.47 L Hgb 8.3 L Hct 26.0 L MCV 105.3 H MCH 33.6 H MCHC 31.9 RDW 20.8 H Plt Count 17 L* MPV Not Reportable Absolute Nucleated RBC 0.000 Nucleated RBC % (auto) 0.0 Sodium Potassium Chloride Carbon Dioxide Anion Gap BUN Creatinine Estim Creat Clear Calc Estimated GFR POC Glucose 184 H Random Glucose Estimat Average Glucose Hemoglobin A1c % Lactic Acid 2.1 H* Lactic Acid F/U @ 2Hr Calcium Random Vancomycin 06/17/25 06/17/25 11:14 13:18 WBC RBC Hgb Hct MCV MCH MCHC RDW Plt Count MPV Absolute Nucleated RBC Nucleated RBC % (auto) Sodium Potassium Chloride Carbon Dioxide Anion Gap BUN Creatinine Estim Creat Clear Calc Estimated GFR POC Glucose 198 H Random Glucose Estimat Average Glucose Hemoglobin A1c % Lactic Acid Lactic Acid F/U @ 2Hr 2.4 H* Calcium Random Vancomycin Microbiology Microbiology Results: Microbiology 06/14/25 22:48 Blood - Venous Blood Culture - Preliminary No growth after 48 hours. 06/14/25 22:48 Blood - Venous Blood Culture - Preliminary No growth after 48 hours. Procedures Date of Service Date of Service: 06/17/25 Assessment & Plan Assessment and plan (1) CKD (chronic kidney disease) stage 3, GFR 30-59 ml/min: Status: Acute (2) Metabolic acidosis: Status: Acute Plan Patient with baseline CKD here with dyspnea in setting of CML renal function is at baseline, will continue to monitor. mixed metabolic acidosis- lactic acidosis elevated, malignancy is likely source. Recommend continuing oral bicarb for now and will continue to monitor. Recommend close I&Os, daily weights recommend dialy renal function and electrolyte studies avoid nephrotoxins continue supportive care Discussed with Dr Farfan. Time Spent With Patient Time: Total time managing care of this patient today ____ minutes. Progress Note: Quality Stroke Does the patient have a stroke diagnosis?: No Reason for No Anti-thrombotic by Day Two: Contraindicated (low PLT count )
--- NOTE | 2025-06-17 14:44 | P.CDIM_ITS ---
PROVIDER RESPONSE TEXT: To clarify, the appropriate diagnosis supported by the clinical indicators: Other (explain): pneumonitis-likley infectious vs chemo related QUERY TEXT: PHYSICIAN'S DOCUMENTATION REQUEST Date of Query: 06/17/2025 07:39 AM EDT Patient Name: Ace Berkowitz Admit Date: 06/15/2025 Dear Ernesto Todd MD, A review of the medical record indicates additional documentation may be needed. Please review below and update the documentation accordingly. Clinical Indicators: H&P 06/15/25 - Chest x-rat done in the Ed noted multi focal bilateral nonspecific consolidation highly suspicious for pneumonia, Aspiration a possibility. Nonproductive cough, family denied that patient is having issues with eating or drinking. Acute hypoxic respiratory failure secondary to pneumonia. Oxygen via NC. Progress note dated 06/16/25 - Sepsis secondary to acute exacerbation of pneumonitis. Chest CT: Bilateral multifocal airspace opacities and pleural effusions: Findings may represent sequelae of infection, inflammation, pneumonitis in the acute setting. Based on the above, further specifics to the monitoring, treatment and evaluation of the diagnosis of aspiration pneumonitis vs. pneumonia? Aspiration Pneumonitis due to vomitus, food etc. drug induced, chemical, chronic, interstitial etc. Aspiration Pneumonia please specify any further specifics Pneumonia possible, suspected, probable, cannot rule out etc. Other (explain) Clinically unable to determine (explain) Thank you, Amber Tavera, CCS, CDIS Use of terms such as suspected, likely, concern for, or probable (associated with a specific diagnosis that is being evaluated, monitored, or treated as if it exists) are acceptable and can be coded in the inpatient setting, when documented at the time of discharge. Please use your independent medical judgment in providing your response. THIS QUERY IS PART OF THE PERMANENT MEDICAL RECORD
--- NOTE | 2025-06-17 14:44 | P.CDIM_ITS ---
PROVIDER RESPONSE TEXT: To clarify, the appropriate diagnosis supported by the clinical indicators: Other (explain): PAf unspecified QUERY TEXT: PHYSICIAN'S DOCUMENTATION REQUEST Date of Query: 06/17/2025 07:35 AM EDT Patient Name: Ace Berkowitz Admit Date: 06/15/2025 Dear Ernesto Todd MD, A review of the medical record indicates additional documentation may be needed. Please review below and update the documentation accordingly. Clinical Indicators: Progress note 06/16/25 - Plan: Afib: now NSR-hold Eliquis. Continue Metoprolol. If possible, please provide further specificity regarding atrial fibrillation, such as: Paroxysmal atrial fibrillation: terminates spontaneously or with intervention within 7 days of onset Persistent atrial fibrillation: episodes of continuous AF that last more than 7 days and do not self-terminate Long lasting persistent atrial fibrillation: episodes of continuous AF that last more than 12 months Chronic or Permanent atrial fibrillation: when a decision has been made to accept the presence of AF and there is no further attempt to restore or maintain sinus rhythm Other (explain) Clinically unable to determine (explain) Thank you, Amber Tavera, CCS, CDIS Use of terms such as suspected, likely, concern for, or probable (associated with a specific diagnosis that is being evaluated, monitored, or treated as if it exists) are acceptable and can be coded in the inpatient setting, when documented at the time of discharge. Please use your independent medical judgment in providing your response. THIS QUERY IS PART OF THE PERMANENT MEDICAL RECORD
[2025-06-17 15:18] LABS: ~Lactic Acid-LAB USE ONLY 2.4 mmol/L (0.5-2.0)
[2025-06-17 16:37] LABS: Glucose, Whole Blood 190 mg/dL (60-115)
[2025-06-17 19:45] LABS: Glucose, Whole Blood 270 mg/dL (60-115)
[2025-06-18] VITALS (7 sets, daily range): BP systolic 151–173; BP diastolic 66–77; PULSE 52–68; RESP 16–20; TEMP 36.2–36.7; O2SAT 94–99
[2025-06-18 07:27] LABS: Hematocrit 27.0 % (42.0-52.0); Hemoglobin 8.2 g/dl (14.0-18.0); Mean Corpuscular HGB Conc 30.4 g/dl (31.0-36.0); Mean Corpuscular Hemoglobin 32.7 pg (27.0-33.0); Mean Corpuscular Volume 107.6 fL (80.0-98.0); NRBC Abs Auto 0.000 X10*3/uL (0.0-0.012); NRBC Pct Auto 0.0 /100WBC (0.0-0.2); Red Blood Count 2.51 X10*6/uL (4.60-5.80)
[2025-06-18 07:38] LABS: Platelet Count 19 X10*3/uL (160-400)
[2025-06-18 07:46] LABS: Anion Gap 14 (12-20); Blood Urea Nitrogen 44 mg/dL (9-16); Calcium 8.5 mg/dL (8.4-10.2); Carbon Dioxide 21 mmol/L (22-29); Chloride 114 mmol/L (96-108); Creatinine Clr Calc Pharmacy 38.3; Estimated Glomerular Filt Rate 49; Potassium 4.6 mmol/L (3.3-5.1); Sodium 144 mmol/L (135-145)
[2025-06-18 08:02] LABS: Glucose, Whole Blood 157 mg/dL (60-115)
[2025-06-18 08:26] LABS: White Blood Count 31.4 X10*3/uL (4.8-10.8)
--- NOTE | 2025-06-18 09:07 | P.PNPL_ITS ---
Subjective Subjective Date of Service: 06/18/25 Interval history: The patient was seen and examined. Still on oxygen. X-ray was personally by me appears to be significantly worse with bibasilar opacities. He also had issues with thrombocytopenia and cytopenias. His Zosyn was stopped just in case it was related to medication. He will need additional platelets if we doing perform bronchoscopy. For now will work on diuresis to try to improve his volume status. If his x-ray is not any better then will go ahead and proceed with bronchoscopy in the afternoon. Objective Data Labs 06/18/25 06:58 06/18/25 06:58 Labs: Laboratory Results - last 24 hr 06/17/25 06/17/25 06/17/25 10:46 11:14 13:18 WBC RBC Hgb Hct MCV MCH MCHC RDW Plt Count MPV Absolute Nucleated RBC Nucleated RBC % (auto) Sodium Potassium Chloride Carbon Dioxide Anion Gap BUN Creatinine Estim Creat Clear Calc Estimated GFR POC Glucose 198 H Random Glucose Lactic Acid 2.1 H* Lactic Acid F/U @ 2Hr 2.4 H* Calcium 06/17/25 06/17/25 06/18/25 16:32 19:35 06:58 WBC 31.4 H* RBC 2.51 L Hgb 8.2 L Hct 27.0 L MCV 107.6 H MCH 32.7 MCHC 30.4 L RDW 21.2 H Plt Count 19 L* MPV Not Reportable Absolute Nucleated RBC 0.000 Nucleated RBC % (auto) 0.0 Sodium 144 Potassium 4.6 Chloride 114 H Carbon Dioxide 21 L Anion Gap 14 BUN 44 H Creatinine 1.39 Estim Creat Clear Calc 38.3 Estimated GFR 49 POC Glucose 190 H 270 H Random Glucose 174 H Lactic Acid Lactic Acid F/U @ 2Hr Calcium 8.5 06/18/25 07:44 WBC RBC Hgb Hct MCV MCH MCHC RDW Plt Count MPV Absolute Nucleated RBC Nucleated RBC % (auto) Sodium Potassium Chloride Carbon Dioxide Anion Gap BUN Creatinine Estim Creat Clear Calc Estimated GFR POC Glucose 157 H Random Glucose Lactic Acid Lactic Acid F/U @ 2Hr Calcium Microbiology Microbiology Results: Microbiology 06/14/25 22:48 Blood - Venous Blood Culture - Preliminary No growth after 48 hours. 06/14/25 22:48 Blood - Venous Blood Culture - Preliminary No growth after 48 hours. Review of Systems Constitutional: Denies daytime sleepiness, Denies excessive sweating, Reports fatigue, Reports fever(s), Denies lethargy, Reports malaise, Denies night sweats, Denies snoring and Denies weight loss Eyes: Denies blurry vision and Denies itchy eyes Denies nasal congestion, Denies post nasal drip, Denies sinus pain, Denies sinus pressure and Denies other ( Thrush) Cardiovascular: Denies chest pain, Denies pedal edema, Reports dyspnea, Reports dyspnea on exertion, Reports orthopnea and Denies paroxysmal nocturnal dyspnea Respiratory: Denies cough, Denies hemoptysis, Denies excessive phlegm production, Reports dyspnea, Reports dyspnea on exertion, Denies snoring and Denies wheezing Gastrointestinal: Denies abdominal pain and Denies heartburn Musculoskeletal: Denies myalgias, Denies arthralgias and Denies joint swelling Skin/Breast: Denies rash Denies memory loss and Denies seizure-like activity Psychiatric: Denies abnormal sleep pattern, Denies anxiety and Denies memory loss Endocrine: Denies excessive sweating, Reports fatigue and Denies heat intolerance Hematologic/Lymphatic: Denies easy bruising Allergic/Immunologic: Denies itchy eyes, Denies seasonal rhinorrhea and Denies wheezing Physical Exam 2 Vital Signs: Vital Signs: Last Vital Signs Temp 97.2 F 06/18/25 08:00 Pulse 61 06/18/25 08:00 Resp 17 06/18/25 08:00 BP 173/75 H 06/18/25 08:00 Pulse Ox 99 06/18/25 08:00 O2 Del Method Nasal Cannula 06/18/25 08:00 O2 Flow Rate 2 06/18/25 08:00 BMI result Body Mass Index 26.6 Const: General: no acute distress, alert and awake Resp: Effort & Inspection: normal respiratory effort and able to speak in complete sentences Auscultation: crackles, rales and diminished lung sounds Cardio: Rate: regular rate Rhythm: regular rhythm Heart sounds: S1 normal heart sound present and S2 normal heart sound present GI: Palpation (GI): Soft to palpation and nontender : General: Yes no CVA tenderness Back/Spine/Pelvis: Back: no CVA tenderness Skin: Rashes: no rashes Extrem: General: Yes edema Procedures Date of Service Date of Service: 06/18/25 Assessment and Plan Assessment and plan (1) Hypoxia: Status: Acute (2) Multifocal pneumonia: Status: Acute (3) Acute respiratory failure with hypoxia: Status: Acute (4) Heart failure with reduced ejection fraction: Status: Acute Plan Worsening CXR could be due to volume overload status, but need to r/o PCP and other smoldering infections. REC: continue abx therapy continue solumedrol Start LAsix IV , monitoring renal function If CXR is no better in the am, then, we will plan for bronchoscopy (Keep NPO after midnight just incase) Time Spent With Patient Time: Total time managing care of this patient today ____ minutes. Progress Note: Quality Stroke Does the patient have a stroke diagnosis?: No Reason for No Anti-thrombotic by Day Two: Contraindicated (low PLT count )
[2025-06-18] MEDS: Furosemide 20 MG/2 ML VIAL IVPUSH ×2 (09:56→21:19)
[2025-06-18] MEDS: 0.9 % Sodium Chloride Flush 3 ML SYRINGE IVFLUSH ×2 (09:58→21:20)
--- NOTE | 2025-06-18 11:09 | P.CONAN_ITS ---
HPI - Anesthesia Eval Consult details Narrative: 80 yr old male for fiberoptic bronchoscopy Newly diagnosed CMML, MDS/MPN overlap: follows with hem/onc, started on hypomethylating agent with 5 azacitidine (Vidaza) 75 milligram/meter squared per day for 7 days of a 28 day cycle. Mixed metabolic acidosis: lactic acidosis elevated, malignancy is likely source. On oral bicarb. Acute hypoxic respiratory failure: Now on 2L O2, CT chest done see below; seen by Dr. Rebolledo 06/18/25, plan for bronch if no chest xray improvement a.m. 06/19/25; platelets will be needed for procedure. T&S ordered by anesthesia 06/18/25 Atrial fib with RVR: on Eliquis, on hold due to low platelets CAD, NSTEMI 09/12 s/p RENE mid RCA: advised plavix for 12 months (on hold); see below EKG, echo; No recent CP with ADLs; no SOB until day of admission. CHF: on lasix, see echo below Diabetes: on Jardiance at home, last dose 5 days ago; on insulin since admission [facility] Active Problems Active Problems: All Active Problems Metabolic acidosis (Acute) CMML (chronic myelomonocytic leukemia) (Acute) Acute respiratory failure with hypoxia (Acute) AMS (altered mental status) (Acute) Hypoxia (Acute) Multifocal pneumonia (Acute) MDS (myelodysplastic syndrome) (Acute) MDS/MPN (myelodysplastic/myeloproliferative neoplasms) (Acute) Sacrococcygeal pilonidal cyst (Acute) Infected pilonidal cyst (Acute) Leukocytosis (Acute) Acute kidney injury superimposed on CKD (Acute) Atrial fibrillation (Acute) CKD stage 3 secondary to diabetes (Acute) Diabetes (Acute) Heart failure with reduced ejection fraction (Acute) Shortness of breath (Acute) Elevated LFTs (Acute) Thrombocytopenia (Acute) Acute exacerbation of bronchiectasis (Acute) Hypoxia (Acute) Elevated WBC count (Acute) Hospital discharge follow-up (Acute) Stented coronary artery (Acute) S/P cardiac cath (Acute) Atrial fibrillation with RVR (Acute) NSTEMI (non-ST elevated myocardial infarction) (Acute) Bronchiectasis (Acute) Renal cyst (Acute) CKD (chronic kidney disease) stage 3, GFR 30-59 ml/min (Acute) Urinary tract infection (Acute) Chronic cough (Acute) Past Medical History Medical History (Updated 06/16/25 @ 13:34 by Valerie Thapa, PIPPA, [facility]-) Heart failure with reduced ejection fraction Thrombocytopenia Diabetes 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 Atrial fibrillation CKD stage 3 secondary to diabetes COPD exacerbation Atrial fibrillation with RVR Sciatica Prediabetes Asbestosis Chronic cough Functional capacity: uses cane/walker Surgical History Surgical History (Updated 06/15/25 @ 01:25 by CHUCK Courtney-GLORIA) Stented coronary artery S/P cardiac cath History of colonoscopy (~10/27/16) Hx of cardiac cath Social History Social History Household Members: Unknown / Unable to assess Housing: Unknown / Unable to assess Do you presently have visiting nurse or other home services: No Alcohol intake: current Alcohol intake frequency: holidays/special occasions only Patient Tobacco Use Status: Former Tobacco user Smoked in Last 30 Days: No Patient Interested in Nicotine Replacement: No Patient Given Instructions on How to Stop Smoking: No Second Hand Smoke Exposure: No Use of substances other than those prescribed or required for medical reasons: No Currently Displaying Signs/Symptoms of Drug Intoxication Withdrawal: No Have you been hit, kicked, punched, or otherwise hurt by someone within the past year? If so, by whom?: No Do you feel safe in your current relationship?: No Current Relationship Is there a partner from a previous relationship who is making you feel unsafe now?: No Are you made to feel afraid or neglected: No Advance Directives: Yes Advance Directives on File: Yes Advance Directives Date on File: 09/13/24 Do you have a plan to hurt others: No Plan Recently lost weight without trying: No Nutrition Risks: On aspiration precautions Poor oral hygiene: No service: No Current occupational status: retired and disabled Meds Allergies Allergy/AdvReac Type Severity Reaction Status Date / Time No Known Allergies Allergy Verified 06/14/25 22:39 Active Medications: Current Medications Acetaminophen (Acetaminophen 325 Mg Tablet) 650 mg PO Q6H PRN PRN Reason: Pain, Mild 1-3,fever,headache Last Admin: 06/15/25 02:16 Dose: 650 mg Albuterol/Ipratropium (Albuterol/Iprat 2.5/0.5mg 3 Ml Ampul.Neb) 3 ml INHALE RQ4H PRN PRN Reason: Shortness of Breath/Wheezing Allopurinol (Allopurinol 100 Mg Tablet) 100 mg PO DAILY [facility] Last Admin: 06/18/25 09:57 Dose: 100 mg Atorvastatin Calcium (Atorvastatin Calcium 40 Mg Tablet) 40 mg PO BEDTIME [facility] Last Admin: 06/17/25 19:50 Dose: 40 mg Calcium Carbonate (Calcium Carbonate 750 Mg Tab.Chew) 750 mg PO Q4H PRN PRN Reason: Heartburn Ceftriaxone Sodium (Ceftriaxone Sodium 2 Gm Vial) 2 gm IVPUSH Q24H [facility] Last Admin: 06/18/25 09:56 Dose: 2 gm Dextrose (Dextrose 50 % 25 Gm/50 Ml Syringe) 25 gm IVPUSH Q15M PRN; Protocol PRN Reason: per Hypoglycemia Standing Ord. Furosemide (Furosemide 20 Mg/2 Ml Vial) 20 mg IVPUSH Q12H [facility]; Protocol Last Admin: 06/18/25 09:56 Dose: 20 mg Glucose (Glucose Gel 15 Gm Gel..Gram.) 15 gm PO Q15M PRN; Protocol PRN Reason: per Hypoglycemia Standing Ord. Guaifenesin (Guaifenesin 200 Mg/10 Ml 10 Ml Liquid) 10 ml PO Q4H PRN PRN Reason: Cough Last Admin: 06/17/25 13:46 Dose: 10 ml Vancomycin HCl 1,000 mg/ (Sodium Chloride) 270 mls @ 270 mls/hr IV Q24H [facility] Last Infusion: 06/18/25 00:04 Dose: Infused Insulin Human Lispro (Insulin Lispro 100 Unit/Ml 3 Ml Vial) 0 unit SUBCUT QIDACHS [facility]; Protocol Last Admin: 06/18/25 08:06 Dose: Not Given Lorazepam (Lorazepam 0.5 Mg Tablet) 0.5 mg PO Q8H PRN PRN Reason: Anxiety Last Admin: 06/15/25 01:52 Dose: 0.5 mg Magnesium Hydroxide (Milk Of Magnesia 30 Ml Oral.Susp) 30 ml PO DAILY PRN PRN Reason: Constipation Melatonin (Melatonin 3 Mg Tablet) 6 mg PO BEDTIME PRN PRN Reason: Insomnia Methylprednisolone Sodium Succinate (Methylprednisolone Sod Succ 40 Mg/Ml Vial) 40 mg IVPUSH Q24H [facility] Last Admin: 06/17/25 15:04 Dose: 40 mg Metoprolol Tartrate (Metoprolol Tartrate 25 Mg Tablet) 25 mg PO BID [facility]; Protocol Last Admin: 06/18/25 09:57 Dose: 25 mg Ondansetron HCl (Ondansetron Hcl 4 Mg/2 Ml Vial) 4 mg IVPUSH Q8H PRN PRN Reason: Nausea and Vomiting Pharmacy Consult (Consult Rx Vancomycin Dosing) 1 each MISCELLANE DAILY PRN PRN Reason: Consult order Polyethylene Glycol (Polyethylene Glycol 3350 17 Gm Powd.Pack) 17 gm PO DAILY PRN PRN Reason: Constipation Senna (Sennosides 8.6 Mg Tablet) 17.2 mg PO BEDTIME [facility] Last Admin: 06/17/25 19:53 Dose: Not Given Sodium Bicarbonate (Sodium Bicarbonate 650 Mg Tablet) 650 mg PO BID [facility] Last Admin: 06/18/25 09:57 Dose: 650 mg Sodium Chloride (0.9 % Sodium Chloride Flush 3 Ml Syringe) 3 ml IVFLUSH QSHIFT [facility] Last Admin: 06/18/25 09:58 Dose: 3 ml Tramadol HCl (Tramadol Hcl 50 Mg Tablet) 50 mg PO TID PRN PRN Reason: moderate pain Home Medications ?Medication ?Instructions ?Recorded ?Confirmed ?Last Taken ?Type fluticasone furoate 200 1 inh inhalation DAILY PRN 0 06/15/25 06/15/25 Unknown History mcg/actuation blister powder for Shortness Of Breath O r Wheezing inhalation (Arnuity Ellipta) tramadol 50 mg tablet 50 mg PO TID PRN moderate pa in 06/15/25 06/15/25 Unknown History Exam Height,Weight and Vital Signs: Height 5 ft 7 in Weight 77.1 kg Last Vital Signs Temp 97.2 F 06/18/25 08:00 Pulse 61 06/18/25 08:00 Resp 17 06/18/25 08:00 BP 173/75 H 06/18/25 08:00 Pulse Ox 99 06/18/25 08:00 O2 Del Method Nasal Cannula 06/18/25 08:00 O2 Flow Rate 2 06/18/25 08:00 Pertinent Lab Results Pertinent Lab Results: Laboratory Tests 06/14/25 06/14/25 06/14/25 22:46 22:55 23:38 WBC 35.7 H* RBC 2.79 L Hgb 9.3 L Hct 29.1 L MCV 104.3 H MCH 33.3 H MCHC 32.0 RDW 21.2 H Plt Count 24 L MPV Not Reportable Immature Gran % (Auto) Cancelled Neut % (Auto) Cancelled Lymph % (Auto) Cancelled [place] % (Auto) Cancelled Eos % (Auto) Cancelled Baso % (Auto) Cancelled Lymph # (Auto) Cancelled [place] # (Auto) Cancelled Eos # (Auto) Cancelled Baso # (Auto) Cancelled Abs Immat Gran (auto) Cancelled Absolute Neuts (auto) Cancelled Absolute Nucleated RBC 0.030 H Nucleated RBC % (auto) 0.1 Neutrophils % (Manual) 82 H Band Neutrophils % 5 Lymphocytes % (Manual) 2 L Monocytes % (Manual) 11 Abs Neuts (Manual) 31.1 H Lymphocytes # (Manual) 0.7 L Monocytes # (Manual) 3.9 H Dohle Bodies PRESENT Platelet Estimate DECREASED Plt Morphology Comment NORMAL RBC Morphology NOTED Polychromasia 1+ (0-2) Microcytosis 1+ (5-14) Macrocytosis 1+ (5-14) Spherocytes 1+ (0-2) Ovalocytes 1+ (5-14) Smear Tech's Comments MANUAL DIFF PT 14.4 H INR 1.3 H VBG pH 7.38 VBG pCO2 28 VBG pO2 70 VBG HCO3 17 L VBG O2 Saturation 93.0 VBG Base Excess -6.2 Sodium 142 Potassium 4.5 Chloride 115 H Carbon Dioxide 17 L Anion Gap 15 BUN 51 H Creatinine 1.82 H Estim Creat Clear Calc 29.2 Estimated GFR 36 POC Glucose Random Glucose 152 H Estimat Average Glucose Hemoglobin A1c % Lactic Acid 1.7 Lactic Acid F/U @ 2Hr Uric Acid Calcium 8.5 Phosphorus Magnesium 1.8 Total Bilirubin 0.8 Direct Bilirubin 0.4 AST 45 H ALT 40 Alkaline Phosphatase 195 H Lactate Dehydrogenase Troponin I High Sens 14.0 B-Natriuretic Peptide 894 H Total Protein 6.5 Albumin 3.6 Beta-Hydroxybutyrate Urine Color Yellow Urine Appearance Cloudy Urine pH 5.0 Ur Specific Howard 1.020 Urine Protein 30 (1+) H Urine Glucose (UA) >=1000 H Urine Ketones Negative Urine Blood Trace H Urine Nitrite Negative Ur Leukocyte Esterase Negative Urine RBC 0-2 Urine WBC 0-5 Ur Squamous Epith Cells 0-2 Urine Bacteria Trace Hyaline Casts 0-2 Urine Yeast Present Nasal Screen MRSA (PCR) Nasal S. aureus Screen Nasal MRSA/S.aureus Interp Random Vancomycin Influenza Type A (PCR) NEGATIVE Influenza Type B (PCR) NEGATIVE RSV RNA Qual (PCR) NEGATIVE SARS-CoV-2 RNA (RT-PCR) NEGATIVE Blood Type Antibody Screen 06/15/25 06/15/25 06/15/25 04:10 06:43 06:44 WBC 33.7 H* RBC 2.64 L Hgb 8.7 L Hct 28.0 L MCV 106.1 H MCH 33.0 MCHC 31.1 RDW 21.1 H Plt Count 17 L* MPV Not Reportable Immature Gran % (Auto) 4.2 H Neut % (Auto) 79.3 H Lymph % (Auto) 3.6 L [place] % (Auto) 12.6 H Eos % (Auto) 0.0 Baso % (Auto) 0.3 Lymph # (Auto) 1.2 [place] # (Auto) 4.3 H Eos # (Auto) 0.0 Baso # (Auto) 0.1 Abs Immat Gran (auto) 1.42 H Absolute Neuts (auto) 26.7 H Absolute Nucleated RBC 0.000 Nucleated RBC % (auto) 0.0 Neutrophils % (Manual) Band Neutrophils % Lymphocytes % (Manual) Monocytes % (Manual) Abs Neuts (Manual) Lymphocytes # (Manual) Monocytes # (Manual) Dohle Bodies Platelet Estimate Plt Morphology Comment RBC Morphology Polychromasia Microcytosis Macrocytosis Spherocytes Ovalocytes Smear Tech's Comments PT INR VBG pH VBG pCO2 VBG pO2 VBG HCO3 VBG O2 Saturation VBG Base Excess Sodium 140 Potassium 5.1 Chloride 116 H Carbon Dioxide 16 L Anion Gap 13 BUN 53 H Creatinine 1.78 H Estim Creat Clear Calc 29.9 Estimated GFR 37 POC Glucose 181 H Random Glucose 235 H Estimat Average Glucose Hemoglobin A1c % Lactic Acid Lactic Acid F/U @ 2Hr Uric Acid Calcium 8.0 L Phosphorus Magnesium Total Bilirubin 0.7 Direct Bilirubin AST 35 ALT 38 Alkaline Phosphatase 161 H Lactate Dehydrogenase Troponin I High Sens B-Natriuretic Peptide Total Protein 6.0 L Albumin 3.4 L Beta-Hydroxybutyrate Urine Color Urine Appearance Urine pH Ur Specific Howard Urine Protein Urine Glucose (UA) Urine Ketones Urine Blood Urine Nitrite Ur Leukocyte Esterase Urine RBC Urine WBC Ur Squamous Epith Cells Urine Bacteria Hyaline Casts Urine Yeast Nasal Screen MRSA (PCR) Nasal S. aureus Screen Nasal MRSA/S.aureus Interp Random Vancomycin Influenza Type A (PCR) Influenza Type B (PCR) RSV RNA Qual (PCR) SARS-CoV-2 RNA (RT-PCR) Blood Type Antibody Screen 06/15/25 06/15/25 06/16/25 08:29 08:37 06:30 WBC 44.3 H* RBC 2.56 L Hgb 8.5 L Hct 27.2 L MCV 106.3 H MCH 33.2 H MCHC 31.3 RDW 20.7 H Plt Count 18 L* MPV Not Reportable Immature Gran % (Auto) Neut % (Auto) Lymph % (Auto) [place] % (Auto) Eos % (Auto) Baso % (Auto) Lymph # (Auto) [place] # (Auto) Eos # (Auto) Baso # (Auto) Abs Immat Gran (auto) Absolute Neuts (auto) Absolute Nucleated RBC 0.000 Nucleated RBC % (auto) 0.0 Neutrophils % (Manual) Band Neutrophils % Lymphocytes % (Manual) Monocytes % (Manual) Abs Neuts (Manual) Lymphocytes # (Manual) Monocytes # (Manual) Dohle Bodies Platelet Estimate Plt Morphology Comment RBC Morphology Polychromasia Microcytosis Macrocytosis Spherocytes Ovalocytes Smear Tech's Comments PT INR VBG pH VBG pCO2 VBG pO2 VBG HCO3 VBG O2 Saturation VBG Base Excess Sodium 140 Potassium 5.3 H Chloride 112 H Carbon Dioxide 17 L Anion Gap 16 BUN 56 H Creatinine 1.69 H Estim Creat Clear Calc 31.5 Estimated GFR 39 POC Glucose Random Glucose 320 H Estimat Average Glucose 108 Hemoglobin A1c % 5.4 Lactic Acid Lactic Acid F/U @ 2Hr Uric Acid Calcium 8.2 L Phosphorus Magnesium Total Bilirubin Direct Bilirubin AST ALT Alkaline Phosphatase Lactate Dehydrogenase 397 H Troponin I High Sens B-Natriuretic Peptide Total Protein Albumin Beta-Hydroxybutyrate Urine Color Urine Appearance Urine pH Ur Specific Howard Urine Protein Urine Glucose (UA) Urine Ketones Urine Blood Urine Nitrite Ur Leukocyte Esterase Urine RBC Urine WBC Ur Squamous Epith Cells Urine Bacteria Hyaline Casts Urine Yeast Nasal Screen MRSA (PCR) NEGATIVE Nasal S. aureus Screen NEGATIVE Nasal MRSA/S.aureus Interp SEE NOTE Random Vancomycin Influenza Type A (PCR) Influenza Type B (PCR) RSV RNA Qual (PCR) SARS-CoV-2 RNA (RT-PCR) Blood Type O Positive Antibody Screen NEGATIVE 06/16/25 06/16/25 06/16/25 12:06 16:14 21:00 WBC RBC Hgb Hct MCV MCH MCHC RDW Plt Count MPV Immature Gran % (Auto) Neut % (Auto) Lymph % (Auto) [place] % (Auto) Eos % (Auto) Baso % (Auto) Lymph # (Auto) [place] # (Auto) Eos # (Auto) Baso # (Auto) Abs Immat Gran (auto) Absolute Neuts (auto) Absolute Nucleated RBC Nucleated RBC % (auto) Neutrophils % (Manual) Band Neutrophils % Lymphocytes % (Manual) Monocytes % (Manual) Abs Neuts (Manual) Lymphocytes # (Manual) Monocytes # (Manual) Dohle Bodies Platelet Estimate Plt Morphology Comment RBC Morphology Polychromasia Microcytosis Macrocytosis Spherocytes Ovalocytes Smear Tech's Comments PT INR VBG pH VBG pCO2 VBG pO2 VBG HCO3 VBG O2 Saturation VBG Base Excess Sodium Potassium Chloride Carbon Dioxide Anion Gap BUN Creatinine Estim Creat Clear Calc Estimated GFR POC Glucose 242 H Random Glucose Estimat Average Glucose Hemoglobin A1c % Lactic Acid Lactic Acid F/U @ 2Hr Uric Acid 5.5 Calcium Phosphorus 4.9 H Magnesium Total Bilirubin Direct Bilirubin AST ALT Alkaline Phosphatase Lactate Dehydrogenase 334 H Troponin I High Sens B-Natriuretic Peptide Total Protein Albumin Beta-Hydroxybutyrate 0.13 Urine Color Urine Appearance Urine pH Ur Specific Howard Urine Protein Urine Glucose (UA) Urine Ketones Urine Blood Urine Nitrite Ur Leukocyte Esterase Urine RBC Urine WBC Ur Squamous Epith Cells Urine Bacteria Hyaline Casts Urine Yeast Nasal Screen MRSA (PCR) Nasal S. aureus Screen Nasal MRSA/S.aureus Interp Random Vancomycin 12.5 L Influenza Type A (PCR) Influenza Type B (PCR) RSV RNA Qual (PCR) SARS-CoV-2 RNA (RT-PCR) Blood Type Antibody Screen 06/16/25 06/17/25 06/17/25 21:24 00:15 06:43 WBC RBC Hgb Hct MCV MCH MCHC RDW Plt Count MPV Immature Gran % (Auto) Neut % (Auto) Lymph % (Auto) [place] % (Auto) Eos % (Auto) Baso % (Auto) Lymph # (Auto) [place] # (Auto) Eos # (Auto) Baso # (Auto) Abs Immat Gran (auto) Absolute Neuts (auto) Absolute Nucleated RBC Nucleated RBC % (auto) Neutrophils % (Manual) Band Neutrophils % Lymphocytes % (Manual) Monocytes % (Manual) Abs Neuts (Manual) Lymphocytes # (Manual) Monocytes # (Manual) Dohle Bodies Platelet Estimate Plt Morphology Comment RBC Morphology Polychromasia Microcytosis Macrocytosis Spherocytes Ovalocytes Smear Tech's Comments PT INR VBG pH VBG pCO2 VBG pO2 VBG HCO3 VBG O2 Saturation VBG Base Excess Sodium 142 Potassium 4.7 Chloride 115 H Carbon Dioxide 17 L Anion Gap 15 BUN 49 H Creatinine 1.57 H Estim Creat Clear Calc 33.9 Estimated GFR 43 POC Glucose 303 H 254 H Random Glucose 202 H Estimat Average Glucose Hemoglobin A1c % Lactic Acid Lactic Acid F/U @ 2Hr Uric Acid Calcium 8.4 Phosphorus Magnesium Total Bilirubin Direct Bilirubin AST ALT Alkaline Phosphatase Lactate Dehydrogenase Troponin I High Sens B-Natriuretic Peptide Total Protein Albumin Beta-Hydroxybutyrate Urine Color Urine Appearance Urine pH Ur Specific Howard Urine Protein Urine Glucose (UA) Urine Ketones Urine Blood Urine Nitrite Ur Leukocyte Esterase Urine RBC Urine WBC Ur Squamous Epith Cells Urine Bacteria Hyaline Casts Urine Yeast Nasal Screen MRSA (PCR) Nasal S. aureus Screen Nasal MRSA/S.aureus Interp Random Vancomycin Influenza Type A (PCR) Influenza Type B (PCR) RSV RNA Qual (PCR) SARS-CoV-2 RNA (RT-PCR) Blood Type Antibody Screen 06/17/25 06/17/25 06/17/25 07:20 08:06 10:46 WBC 38.3 H* RBC 2.47 L Hgb 8.3 L Hct 26.0 L MCV 105.3 H MCH 33.6 H MCHC 31.9 RDW 20.8 H Plt Count 17 L* MPV Not Reportable Immature Gran % (Auto) Neut % (Auto) Lymph % (Auto) [place] % (Auto) Eos % (Auto) Baso % (Auto) Lymph # (Auto) [place] # (Auto) Eos # (Auto) Baso # (Auto) Abs Immat Gran (auto) Absolute Neuts (auto) Absolute Nucleated RBC 0.000 Nucleated RBC % (auto) 0.0 Neutrophils % (Manual) Band Neutrophils % Lymphocytes % (Manual) Monocytes % (Manual) Abs Neuts (Manual) Lymphocytes # (Manual) Monocytes # (Manual) Dohle Bodies Platelet Estimate Plt Morphology Comment RBC Morphology Polychromasia Microcytosis Macrocytosis Spherocytes Ovalocytes Smear Tech's Comments PT INR VBG pH VBG pCO2 VBG pO2 VBG HCO3 VBG O2 Saturation VBG Base Excess Sodium Potassium Chloride Carbon Dioxide Anion Gap BUN Creatinine Estim Creat Clear Calc Estimated GFR POC Glucose 184 H Random Glucose Estimat Average Glucose Hemoglobin A1c % Lactic Acid 2.1 H* Lactic Acid F/U @ 2Hr Uric Acid Calcium Phosphorus Magnesium Total Bilirubin Direct Bilirubin AST ALT Alkaline Phosphatase Lactate Dehydrogenase Troponin I High Sens B-Natriuretic Peptide Total Protein Albumin Beta-Hydroxybutyrate Urine Color Urine Appearance Urine pH Ur Specific Howard Urine Protein Urine Glucose (UA) Urine Ketones Urine Blood Urine Nitrite Ur Leukocyte Esterase Urine RBC Urine WBC Ur Squamous Epith Cells Urine Bacteria Hyaline Casts Urine Yeast Nasal Screen MRSA (PCR) Nasal S. aureus Screen Nasal MRSA/S.aureus Interp Random Vancomycin Influenza Type A (PCR) Influenza Type B (PCR) RSV RNA Qual (PCR) SARS-CoV-2 RNA (RT-PCR) Blood Type Antibody Screen 06/17/25 06/17/25 06/17/25 11:14 13:18 16:32 WBC RBC Hgb Hct MCV MCH MCHC RDW Plt Count MPV Immature Gran % (Auto) Neut % (Auto) Lymph % (Auto) [place] % (Auto) Eos % (Auto) Baso % (Auto) Lymph # (Auto) [place] # (Auto) Eos # (Auto) Baso # (Auto) Abs Immat Gran (auto) Absolute Neuts (auto) Absolute Nucleated RBC Nucleated RBC % (auto) Neutrophils % (Manual) Band Neutrophils % Lymphocytes % (Manual) Monocytes % (Manual) Abs Neuts (Manual) Lymphocytes # (Manual) Monocytes # (Manual) Dohle Bodies Platelet Estimate Plt Morphology Comment RBC Morphology Polychromasia Microcytosis Macrocytosis Spherocytes Ovalocytes Smear Tech's Comments PT INR VBG pH VBG pCO2 VBG pO2 VBG HCO3 VBG O2 Saturation VBG Base Excess Sodium Potassium Chloride Carbon Dioxide Anion Gap BUN Creatinine Estim Creat Clear Calc Estimated GFR POC Glucose 198 H 190 H Random Glucose Estimat Average Glucose Hemoglobin A1c % Lactic Acid Lactic Acid F/U @ 2Hr 2.4 H* Uric Acid Calcium Phosphorus Magnesium Total Bilirubin Direct Bilirubin AST ALT Alkaline Phosphatase Lactate Dehydrogenase Troponin I High Sens B-Natriuretic Peptide Total Protein Albumin Beta-Hydroxybutyrate Urine Color Urine Appearance Urine pH Ur Specific [place] Urine Protein Urine Glucose (UA) Urine Ketones Urine Blood Urine Nitrite Ur Leukocyte Esterase Urine RBC Urine WBC Ur Squamous Epith Cells Urine Bacteria Hyaline Casts Urine Yeast Nasal Screen MRSA (PCR) Nasal S. aureus Screen Nasal MRSA/S.aureus Interp Random Vancomycin Influenza Type A (PCR) Influenza Type B (PCR) RSV RNA Qual (PCR) SARS-CoV-2 RNA (RT-PCR) Blood Type Antibody Screen 06/17/25 06/18/25 06/18/25 19:35 06:58 07:44 WBC 31.4 H* RBC 2.51 L Hgb 8.2 L Hct 27.0 L MCV 107.6 H MCH 32.7 MCHC 30.4 L RDW 21.2 H Plt Count 19 L* MPV Not Reportable Immature Gran % (Auto) Neut % (Auto) Lymph % (Auto) [place] % (Auto) Eos % (Auto) Baso % (Auto) Lymph # (Auto) [place] # (Auto) Eos # (Auto) Baso # (Auto) Abs Immat Gran (auto) Absolute Neuts (auto) Absolute Nucleated RBC 0.000 Nucleated RBC % (auto) 0.0 Neutrophils % (Manual) Band Neutrophils % Lymphocytes % (Manual) Monocytes % (Manual) Abs Neuts (Manual) Lymphocytes # (Manual) Monocytes # (Manual) Dohle Bodies Platelet Estimate Plt Morphology Comment RBC Morphology Polychromasia Microcytosis Macrocytosis Spherocytes Ovalocytes Smear Tech's Comments PT INR VBG pH VBG pCO2 VBG pO2 VBG HCO3 VBG O2 Saturation VBG Base Excess Sodium 144 Potassium 4.6 Chloride 114 H Carbon Dioxide 21 L Anion Gap 14 BUN 44 H Creatinine 1.39 Estim Creat Clear Calc 38.3 Estimated GFR 49 POC Glucose 270 H 157 H Random Glucose 174 H Estimat Average Glucose Hemoglobin A1c % Lactic Acid Lactic Acid F/U @ 2Hr Uric Acid Calcium 8.5 Phosphorus Magnesium Total Bilirubin Direct Bilirubin AST ALT Alkaline Phosphatase Lactate Dehydrogenase Troponin I High Sens B-Natriuretic Peptide Total Protein Albumin Beta-Hydroxybutyrate Urine Color Urine Appearance Urine pH Ur Specific Howard Urine Protein Urine Glucose (UA) Urine Ketones Urine Blood Urine Nitrite Ur Leukocyte Esterase Urine RBC Urine WBC Ur Squamous Epith Cells Urine Bacteria Hyaline Casts Urine Yeast Nasal Screen MRSA (PCR) Nasal S. aureus Screen Nasal MRSA/S.aureus Interp Random Vancomycin Influenza Type A (PCR) Influenza Type B (PCR) RSV RNA Qual (PCR) SARS-CoV-2 RNA (RT-PCR) Blood Type Antibody Screen Narrative Narrative: EKG 05/2025 Vent. Rate : 89 BPM Atrial Rate : 89 BPM P-R Int : 144 ms QRS Dur : 76 ms QT Int : 346 ms P-R-T Axes : 42 40 85 degrees QTcB Int : 420 ms Normal sinus rhythm Nonspecific ST and T wave abnormality Abnormal ECG When compared with ECG of 20-Nov-2024 18:55, MA interval has increased Echo 05/2025 Conclusions: - 1. Mildly to moderately reduced LV ejection fraction 40-45% with grade 2 diastolic dysfunction 2. Mildly dilated left atrium 3. Cardiac valvular Dopplers within normal limits 4. Normal measured RV systolic pressure 5. No gross pericardial effusion Chest xray 06/18/25 FINDINGS: There has been worsening of airspace opacities in both lower lung zones with probable mild improvement in the upper lung zones. There are probable small bilateral pleural effusions. No pneumothorax. The heart is normal in size. There is degenerative disc disease of the spine. Chest CT 06/15/25 IMPRESSION: Bilateral multifocal airspace opacities and pleural effusions. Findings may represent sequelae of infection, inflammation, pneumonitis in the acute setting. Recommend follow-up evaluation to resolution with particular attention to the left upper lobe opacities, to exclude underlying neoplasm. Airway Mallampati Class: II TM Dist: >3cm Neck ROM: Full Denture: Upper and Lower Heart: RRR Lungs: decreased at bases b/l
[2025-06-18 11:30] LABS: Glucose, Whole Blood 168 mg/dL (60-115)
--- NOTE | 2025-06-18 14:50 | MHC.CM.PN ---
EMR reviewed and per MD rounds, pt is not medically cleared for discharge due to management of sepsis/CHF/pneumonitis.
[2025-06-18 15:57] LABS: Glucose, Whole Blood 227 mg/dL (60-115)
--- NOTE | 2025-06-18 16:26 | PM.HEMONCPN ---
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 He was brought in by ambulance due to SOB and weakness. Pt was not altered or lethargic. EMS noted patient's pulse ox was 65% on room air,. He received a non-rebreather and sats improved to the mid 90s. Within the last week patient did start the new chemotherapeutic agent within the last week. Patient has been off his Eliquis due to low platelet count. Chest x-ray done in the ED noted multi focal bilateral nonspecific consolidation highly suspicious for pneumonia. Aspiration also a possibility. Reviewed this with patient and son and they denied that patient is having issues with eating or taking medications or drinking fluids. Patient has a nonproductive cough. BNP also elevated, 894 with known hx of HFrEF 45-50%. Last complete echo 09/10/24. Pt currently in NSR, no complaints of chest pain. Temp max 103.8. BC X2 drawn. No tachycardia or hypotension. Patient received 2 g of cefepime IV. Patient also started on methylprednisolone 125 mg IV x1. Patient also received 2 g magnesium IV x1. Patient currently on 5 L nasal cannula, alert and orientated but pale in presentation. H&H 9.3 and 29.1. Platelets 24,000. White count 35. VBG , 7.38 , 28, 70 17 on oxygen. Patient does not use oxygen at home currently. CT Chest from 06/15: Bilateral multifocal airspace opacities and pleural effusions. Findings may represent sequelae of infection, inflammation, pneumonitis in the acute setting. Recommend follow-up evaluation to resolution with particular attention to the left upper lobe opacities, to exclude underlying neoplasm. Patient was initially not happy about being admitted to the hospital. His son who is also the healthcare proxy, reassured him. He finally agreed to stay. Son is also caring for patient's spouse who has Alzheimer's disease and is part of the pace program. Son is open to talking with case management to plan for current and future needs as son will be returning to work as a teacher once the summer ends. Pt did meet criteria for sepsis with noted hypoxia, fever 103.8, and leukocytosis (aware of MDS cancer DX). He feels okay. No pain but feels a bit winded. No headache or dizziness. No fever or chills. He has diuresed significantly since he received Lasix this morning. Review of Systems Review of Systems: Review of Systems - Neurologic Denies memory loss, Denies seizure-like activity [facility] Medical History: Medical History (Last Updated 06/15/25 @ 01:25 by CHUCK Courtney-GLORIA) Asbestosis Atrial fibrillation Atrial fibrillation with RVR Chronic cough CKD stage 3 secondary to diabetes COPD exacerbation Diabetes Heart failure with reduced ejection fraction MDS/MPN (myelodysplastic/myeloproliferative neoplasms) Prediabetes Renal cyst Sacrococcygeal pilonidal cyst Sciatica Thrombocytopenia Functional capacity: uses cane/walker Surgical History: Surgical History (Last Updated 06/15/25 @ 01:25 by RICHIE Courtney) History of colonoscopy Onset Date: ~10/27/16 Hx of cardiac cath S/P cardiac cath Stented coronary artery Social History: Social History (Last Reviewed 06/15/25 @ 01:23 by RICHIE Courtney) Living Situation History: Household Members: Unknown / Unable to asses Housing: Unknown / Unable to asses Do you presently have visiting nurse or other home services: No Alcohol History Details: 1. How often do you have a drink containing alcohol?: a. Never AUDIT-C Alcohol total score: 0 Currently Displaying Signs/Symptoms of Alcohol Withdrawal: No Tobacco History: Patient Tobacco Use Status: Former Tobacco user Smoked in Last 30 Days: No Patient Interested in Nicotine Replacement: No Patient Given Instructions on How to Stop Smoking: No Second Hand Smoke Exposure: No Substance Use History: Use of substances other than those prescribed or required for medical reasons: No Currently Displaying Signs/Symptoms of Drug Intoxication Withdrawal: No Domestic Abuse History: Have you been hit, kicked, punched, or otherwise hurt by someone within the past year? If so, by whom?: No Do you feel safe in your current relationship?: No Current Relationship Is there a partner from a previous relationship who is making you feel unsafe now?: No Are you made to feel afraid or neglected: No Advance Directives: Advance Directives: Yes Advance Directives on File: Yes Advance Directives Date on File: 09/13/24 Homicidal Assessment: Do you have a plan to hurt others: No Plan Nutrition Assessment: Recently lost weight without trying: No Nutrition Risks: On aspiration precautions Poor oral hygiene: No Occupation Assessmet: service: No Current occupational status: retired Current occupational status: disabled - Travel History Ebola Risk: Travel/Contact With Anyone From Affected Area/s: No Has Patient Experienced Ebola Symptoms: No Home Medications and Allergies Current Medications: Current Medications Acetaminophen (Acetaminophen 325 Mg Tablet) 650 mg PO Q6H PRN PRN Reason: Pain, Mild 1-3,fever,headache Last Admin: 06/15/25 02:16 Dose: 650 mg Albuterol/Ipratropium (Albuterol/Iprat 2.5/0.5mg 3 Ml Ampul.Neb) 3 ml INHALE RQ4H PRN PRN Reason: Shortness of Breath/Wheezing Allopurinol (Allopurinol 100 Mg Tablet) 100 mg PO DAILY RASHAD Last Admin: 06/18/25 09:57 Dose: 100 mg Atorvastatin Calcium (Atorvastatin Calcium 40 Mg Tablet) 40 mg PO BEDTIME RSAHAD Last Admin: 06/17/25 19:50 Dose: 40 mg Calcium Carbonate (Calcium Carbonate 750 Mg Tab.Chew) 750 mg PO Q4H PRN PRN Reason: Heartburn Ceftriaxone Sodium (Ceftriaxone Sodium 2 Gm Vial) 2 gm IVPUSH Q24H RASHAD Last Admin: 06/18/25 09:56 Dose: 2 gm Dextrose (Dextrose 50 % 25 Gm/50 Ml Syringe) 25 gm IVPUSH Q15M PRN; Protocol PRN Reason: per Hypoglycemia Standing Ord. Furosemide (Furosemide 20 Mg/2 Ml Vial) 20 mg IVPUSH Q12H RASHAD; Protocol Last Admin: 06/18/25 09:56 Dose: 20 mg Glucose (Glucose Gel 15 Gm Gel..Gram.) 15 gm PO Q15M PRN; Protocol PRN Reason: per Hypoglycemia Standing Ord. Guaifenesin (Guaifenesin 200 Mg/10 Ml 10 Ml Liquid) 10 ml PO Q4H PRN PRN Reason: Cough Last Admin: 06/17/25 13:46 Dose: 10 ml Vancomycin HCl 1,000 mg/ (Sodium Chloride) 270 mls @ 270 mls/hr IV Q24H [facility] Last Infusion: 06/18/25 00:04 Dose: Infused Insulin Human Lispro (Insulin Lispro 100 Unit/Ml 3 Ml Vial) 0 unit SUBCUT QIDACHS [facility]; Protocol Last Admin: 06/18/25 11:31 Dose: Not Given Lorazepam (Lorazepam 0.5 Mg Tablet) 0.5 mg PO Q8H PRN PRN Reason: Anxiety Last Admin: 06/15/25 01:52 Dose: 0.5 mg Magnesium Hydroxide (Milk Of Magnesia 30 Ml Oral.Susp) 30 ml PO DAILY PRN PRN Reason: Constipation Melatonin (Melatonin 3 Mg Tablet) 6 mg PO BEDTIME PRN PRN Reason: Insomnia Methylprednisolone Sodium Succinate (Methylprednisolone Sod Succ 40 Mg/Ml Vial) 40 mg IVPUSH Q24H [facility] Last Admin: 06/18/25 14:45 Dose: 40 mg Metoprolol Tartrate (Metoprolol Tartrate 25 Mg Tablet) 25 mg PO BID [facility]; Protocol Last Admin: 06/18/25 09:57 Dose: 25 mg Ondansetron HCl (Ondansetron Hcl 4 Mg/2 Ml Vial) 4 mg IVPUSH Q8H PRN PRN Reason: Nausea and Vomiting Pharmacy Consult (Consult Rx Vancomycin Dosing) 1 each MISCELLANE DAILY PRN PRN Reason: Consult order Polyethylene Glycol (Polyethylene Glycol 3350 17 Gm Powd.Pack) 17 gm PO DAILY PRN PRN Reason: Constipation Senna (Sennosides 8.6 Mg Tablet) 17.2 mg PO BEDTIME [facility] Last Admin: 06/17/25 19:53 Dose: Not Given Sodium Bicarbonate (Sodium Bicarbonate 650 Mg Tablet) 650 mg PO BID [facility] Last Admin: 06/18/25 09:57 Dose: 650 mg Sodium Chloride (0.9 % Sodium Chloride Flush 3 Ml Syringe) 3 ml IVFLUSH QSHIFT [facility] Last Admin: 06/18/25 09:58 Dose: 3 ml Tramadol HCl (Tramadol Hcl 50 Mg Tablet) 50 mg PO TID PRN PRN Reason: moderate pain Home Medications ?Medication ?Instructions ?Recorded ?Confirmed ?Type fluticasone furoate 200 1 inh inhalation DAILY PRN 06/15/25 06/15/25 History mcg/actuation blister powder for Shortness Of Breath Or Wheezing inhalation (Arnuity Ellipta) tramadol 50 mg tablet 50 mg PO TID PRN moderate pain 06/15/25 06/15/25 History Allergies Allergy/AdvReac Type Severity Reaction Status Date / Time No Known Allergies Allergy Verified 06/14/25 22:39 Exam Vital signs: Vital Signs Temp 97.5 F 06/18/25 15:47 Pulse 67 06/18/25 15:47 Resp 18 06/18/25 15:47 BP 153/66 H 06/18/25 15:47 Pulse Ox 94 06/18/25 15:47 O2 Del Method Nasal Cannula 06/18/25 15:47 O2 Flow Rate 2 06/18/25 15:47 Intake & Output 06/17/25 06/18/25 06/18/25 18:59 06:59 18:59 Intake Total 530 / 1681.25 1151.25 / 1681.25 1700 / 1700 Output Total 1200 / 2900 1700 / 2900 1700 / 1700 Balance -670 / -1218.75 -548.75 / -1218.75 0 / 0 Urine Output (Average ml/kg/hr) 1.30 1.84 1.84 Intake: Intake, Oral Amount 480 / 480 700 / 700 Intake, IV Amount 50 / 1201.25 1151.25 / 1201.25 1000 / 1000 Piperacillin Sodium/Tazobactam 50 / 50 2.25 gm In 0.9 % Sodium Chloride 50 ml @ 100 mls/hr IV Q6H RASHAD Rx#:[id number] vancomycin HCL 1,000 mg In 0.9 270 / 270 % Sodium Chloride 250 ml @ 270 mls/hr IV Q24H RASHAD Rx#: [id number] Lactated Ringers 1,000 ml @ 75 881.25 / 881.25 1000 / 1000 mls/hr IVCONT .[id number] RASHAD Rx#: [id number] Output: Output, Urine Amount 1200 / 2900 1700 / 2900 1700 / 1700 Other: Meal Refused No NPO No Breakfast % Eaten 75% 100% Lunch % Eaten 75% 100% Dinner % Eaten 75% Eating (Feeding) Ability Independent Number of Bowel Movements 1 Urine purewick purewic Urine Color Yellow Tea Yellow Last Bowel Movement 06/17/25 06/17/25 Stool Bedside Commode Stool Amount Large Stool Color Brown Stool Consistency Mushy Weight 77.1 kg BMI result Body Mass Index 26.6 - Constitutional Present: mild distress - Routine HEENT Exam Head: Present: normal inspection, normocephalic - Routine Respiratory Exam Present: rales. Absent: accessory muscle use, wheezes - Routine Cardiovascular Exam Cardiovascular: Present: S1, S2 Data - Labs CBC & Chem 7: 06/18/25 06:58 06/18/25 06:58 - Imaging Radiologist's impression: ITS Impressions Chest X-Ray 06/18/25 07:10 IMPRESSION: Worsening airspace opacities in both lower lung zones with improvement in the upper lung zones. Small bilateral pleural effusions. Electronically signed by: Ezio Alexander MD 06/18/2025 07:58 AM EDT Assessment and Plan Patient Active problem list reviewed?: Yes (1) CMML (chronic myelomonocytic leukemia) Status: Acute Assessment and plan: This is a 80 year old male with CMML status post 1st cycle 5 azacitidine who has been admitted for hypoxic respiratory failure. CT Chest from 06/15: Bilateral multifocal airspace opacities and pleural effusions. Findings may represent sequelae of infection, inflammation, pneumonitis in the acute setting. Recommend follow-up evaluation to resolution with particular attention to the left upper lobe opacities, to exclude underlying neoplasm. Picture is consistent with a pneumonia, the setting of immunosuppression from underlying CMML. Doubt related to treatment since he was just started on it last week. He was on Zosyn and vancomycin. Solu-Medrol IV for possible pneumonitis. He is now on ceftriaxone. Chest x-ray today showed worsening infiltrates. He has been diuresed. 2. Pancytopenia/thrombocytopenia. He has receiving intermittent platelet transfusions. Plan is for bronchoscopy and biopsy if no improvement in imaging findings. - Time Spent With Patient Time Spent with Patient (in minutes): 15
--- NOTE | 2025-06-18 19:27 | P.PNIM_ITS ---
Subjective Subjective Date of Service: 06/18/25 Interval History: Reports feeling ?terrible?, ?groggy?, and tired Did not get out of bed yesterday No improvement to SOB Cough about the same CXR this morning shows worsening airspace opacities in both lower lung zones with improvement in upper lung sounds and small bilateral pleural effusions Review of Systems Review of Systems: Yes all other systems are reviewed and are negative Physical Exam 2 Exam: Exam: General: AOx3, appears tired and uncomfortable. No acute distress Resp: Diminished with crackles at bases CVS: S1, S2, RRR GI: +BS, NT, no distention Skin: Warm, dry Neuro: Cranial nerves II-XII grossly intact bilaterally. Motor grossly intact bilaterally Extremities: No edema Psych: Appropriate affect Vital Signs: Vital Signs: Last Vital Signs Temp 97.5 F 06/18/25 15:47 Pulse 67 06/18/25 15:47 Resp 18 06/18/25 15:47 BP 153/66 H 06/18/25 15:47 Pulse Ox 94 06/18/25 15:47 O2 Del Method Nasal Cannula 06/18/25 15:47 O2 Flow Rate 2 06/18/25 15:47 BMI result Body Mass Index 26.6 Objective Data Active Medications Acetaminophen (Acetaminophen 325 Mg Tablet) 650 mg PO Q6H PRN PRN Reason: Pain, Mild 1-3,fever,headache Last Admin: 06/15/25 02:16 Dose: 650 mg Documented By: SERRANX Albuterol/Ipratropium (Albuterol/Iprat 2.5/0.5mg 3 Ml Ampul.Neb) 3 ml INHALE RQ4H PRN PRN Reason: Shortness of Breath/Wheezing Allopurinol (Allopurinol 100 Mg Tablet) 100 mg PO DAILY [facility] Last Admin: 06/18/25 09:57 Dose: 100 mg Documented By: SANTOL Atorvastatin Calcium (Atorvastatin Calcium 40 Mg Tablet) 40 mg PO BEDTIME [facility] Last Admin: 06/17/25 19:50 Dose: 40 mg Documented By: N-DESSK Calcium Carbonate (Calcium Carbonate 750 Mg Tab.Chew) 750 mg PO Q4H PRN PRN Reason: Heartburn Ceftriaxone Sodium (Ceftriaxone Sodium 2 Gm Vial) 2 gm IVPUSH Q24H [facility] Last Admin: 07/30/25 09:56 Dose: 2 gm Documented By: RAVI Dextrose (Dextrose 50 % 25 Gm/50 Ml Syringe) 25 gm IVPUSH Q15M PRN; Protocol PRN Reason: per Hypoglycemia Standing Ord. Furosemide (Furosemide 20 Mg/2 Ml Vial) 20 mg IVPUSH Q12H [facility]; Protocol Last Admin: 06/18/25 09:56 Dose: 20 mg Documented By: RAVI Glucose (Glucose Gel 15 Gm Gel..Gram.) 15 gm PO Q15M PRN; Protocol PRN Reason: per Hypoglycemia Standing Ord. Guaifenesin (Guaifenesin 200 Mg/10 Ml 10 Ml Liquid) 10 ml PO Q4H PRN PRN Reason: Cough Last Admin: 06/17/25 13:46 Dose: 10 ml Documented By: JOSE LUIS Vancomycin HCl 1,000 mg/ (Sodium Chloride) 270 mls @ 270 mls/hr IV Q24H [facility] Last Infusion: 06/18/25 00:04 Dose: Infused Documented By: MARY-TETO Insulin Human Lispro (Insulin Lispro 100 Unit/Ml 3 Ml Vial) 0 unit SUBCUT QIDACHS [facility]; Protocol Last Admin: 06/18/25 17:57 Dose: 2 unit Documented By: GWENDOLYN Lorazepam (Lorazepam 0.5 Mg Tablet) 0.5 mg PO Q8H PRN PRN Reason: Anxiety Last Admin: 06/15/25 01:52 Dose: 0.5 mg Documented By: MONIK Magnesium Hydroxide (Milk Of Magnesia 30 Ml Oral.Susp) 30 ml PO DAILY PRN PRN Reason: Constipation Melatonin (Melatonin 3 Mg Tablet) 6 mg PO BEDTIME PRN PRN Reason: Insomnia Methylprednisolone Sodium Succinate (Methylprednisolone Sod Succ 40 Mg/Ml Vial) 40 mg IVPUSH Q24H [facility] Last Admin: 06/18/25 14:45 Dose: 40 mg Documented By: RAVI Metoprolol Tartrate (Metoprolol Tartrate 25 Mg Tablet) 25 mg PO BID [facility]; Protocol Last Admin: 06/18/25 09:57 Dose: 25 mg Documented By: RAVI Ondansetron HCl (Ondansetron Hcl 4 Mg/2 Ml Vial) 4 mg IVPUSH Q8H PRN PRN Reason: Nausea and Vomiting Pharmacy Consult (Consult Rx Vancomycin Dosing) 1 each MISCELLANE DAILY PRN PRN Reason: Consult order Polyethylene Glycol (Polyethylene Glycol 3350 17 Gm Powd.Pack) 17 gm PO DAILY PRN PRN Reason: Constipation Senna (Sennosides 8.6 Mg Tablet) 17.2 mg PO BEDTIME [facility] Last Admin: 06/17/25 19:53 Dose: Not Given Documented By: MARY-DESSK Non-Admin Reason: Patient Refused Sodium Bicarbonate (Sodium Bicarbonate 650 Mg Tablet) 650 mg PO BID [facility] Last Admin: 06/18/25 09:57 Dose: 650 mg Documented By: RAVI Sodium Chloride (0.9 % Sodium Chloride Flush 3 Ml Syringe) 3 ml IVFLUSH QSHIFT [facility] Last Admin: 06/18/25 17:56 Dose: Not Given Documented By: FOSTEKR Non-Admin Reason: Previously Administered Tramadol HCl (Tramadol Hcl 50 Mg Tablet) 50 mg PO TID PRN PRN Reason: moderate pain Labs 06/18/25 06:58 06/18/25 06:58 Labs: Laboratory Results - last 24 hr 06/17/25 06/18/25 06/18/25 19:35 06:58 07:44 MCV 107.6 H MCH 32.7 MCHC 30.4 L RDW 21.2 H Plt Count 19 L* MPV Not Reportable Absolute Nucleated RBC 0.000 Nucleated RBC % (auto) 0.0 Anion Gap 14 Estim Creat Clear Calc 38.3 Estimated GFR 49 POC Glucose 270 H 157 H Random Glucose 174 H Calcium 8.5 Blood Type Antibody Screen 06/18/25 06/18/25 06/18/25 11:24 13:01 15:50 MCV MCH MCHC RDW Plt Count MPV Absolute Nucleated RBC Nucleated RBC % (auto) Anion Gap Estim Creat Clear Calc Estimated GFR POC Glucose 168 H 227 H Random Glucose Calcium Blood Type O Positive Antibody Screen NEGATIVE Assessment and Plan (1) Acute respiratory failure with hypoxia: Status: Acute (2) Multifocal pneumonia: Status: Acute (3) Heart failure with reduced ejection fraction: Status: Acute Plan 79-year-old male with a past medical history significant for AFib on Eliquis, CAD, NSTEMI 09/12 s/p RENE mid RCA on Plavix, prediabtes , and bronchiectasis secondary to asbestosis, who presented to the ED today due to shortness of breath and weakness for the past few days. Sepsis secondary to acute exacerbation of pneumonitis with acute hypoxic respiratory failure Likely in the setting of immunosuppression from underlying CMML; chemotherapy reaction less likely No improvement in SOB WBC count fluctuating(?steriod use), blood cultures negative @48hrs Acute hypoxic respiratory failure due to above will wean oxygen as tolerated. chest CT :Bilateral multifocal airspace opacities and pleural effusions. Findings may represent sequelae of infection, inflammation, pneumonitis in the acute setting. Recommend follow-up evaluation to resolution with particular attention to the left upper lobe opacities, to exclude underlying neoplasm. Repeat CXR with worsening airspace opacities in both lower lung zones and small bilateral pleural effusions pulm following-continue antibotics vanco(intiaed on 06/17), zosyn switched to ceftriaxone Continue iv steroids Plan is to repeat CXR tomorrow; if no improvement pulmonolgy will attempt bronch with biopsy HFrEf BNP 894 echo 09/12 showed EF 40-45%, regional wall motion abnormality and abnormal diastolic function repeat echo similar with moderately reduced LV ejection fraction 40-45% with grade 2 diastolic dysfunction Lasix IV X1 in ED Will diurese with Lasix 20mg IV bid 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 on new chemotherapeutic agent (vidaza azacitidine) started 06/06/2025 Patient no longer on Hydrea Leukocytosis flactuating, no bandemia (previous WBC 60) Anemia 9.3.1, no indication for transfusion Thrombocytopenia - eliquis remains on hold Oncology outpatient follow up -added 1 unit platelets , today platlets still 17 (? if zosyn is contibuting /changed to ceftriaxone). plan : no sign of bleeding cbc daily continue iv steriods 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 follow bmp. Now back to baseline Nephrology signed off Acute lactic acidosis: Seems lactic acid elevated to dehydration/hyperglycemia , no further trending unless clinical deterioration. Chronic Thrombocytopenia : moniter cbc closely. Has received platelets with minial response Will likely need platelet transfusion prior to anysurgical procedure AFib : now NSR-hold Eliquis ,continue metoprolol. CAD, hx recent NSTEMI 08/2024, s/p RENE mid RCA:hold Plavix. continue metoprolol and atorvastatin ? hyperglycemia likley due to steriods use: check poc. Hba1c levels 5.4 diabetic diet added fs with sliding scale coverage Full code - previously was DNR/DNI, discussion with patient and son, patient would like to be full code VTE prophylaxis: mech devices sec to thrombocytopenia Patient with sepsis secondary to acute exacerbation of bronchiectasis with acute hypoxic respiratory failure, thrombocytopenia therefore will require continued inpatient hospitalization .antibiotics. Quality Stroke Does the patient have a stroke diagnosis?: No Reason for No Anti-thrombotic by Day Two: Contraindicated (low PLT count ) VTE Prior VTE?: No VTE Risk Level:: Medical - moderate - high VTE Device Contraindication: N/A - Device Ordered VTE Drug Contraindication: Treatment Not Indicated
[2025-06-18 20:33] LABS: Glucose, Whole Blood 332 mg/dL (60-115)
[2025-06-19] VITALS (10 sets, daily range): BP systolic 129–150; BP diastolic 60–69; PULSE 52–76; RESP 16–20; TEMP 36.3–36.7; O2SAT 97–100
[2025-06-19 07:08] LABS: Glucose, Whole Blood 171 mg/dL (60-115)
[2025-06-19 07:15] LABS: Hematocrit 25.8 % (42.0-52.0); Hemoglobin 8.1 g/dl (14.0-18.0); Imm Gran Abs Auto 1.19 X10*3/uL (0.00-0.03); Imm Gran Pct Auto 4.3 % (0.0-0.4); Lymphocytes Absolute Auto 1.0 X10*3/uL (1.2-4.9); MANUAL DIFF FLAG SCAN; Mean Corpuscular HGB Conc 31.4 g/dl (31.0-36.0); Mean Corpuscular Hemoglobin 32.8 pg (27.0-33.0); Mean Corpuscular Volume 104.5 fL (80.0-98.0); NRBC Abs Auto 0.020 X10*3/uL (0.0-0.012); NRBC Pct Auto 0.1 /100WBC (0.0-0.2); Red Blood Count 2.47 X10*6/uL (4.60-5.80); SCAN SMEAR FLAG 1; White Blood Count 27.5 X10*3/uL (4.8-10.8)
[2025-06-19 07:21] LABS: Anion Gap 12 (12-20); Blood Urea Nitrogen 44 mg/dL (9-16); Calcium 8.4 mg/dL (8.4-10.2); Carbon Dioxide 24 mmol/L (22-29); Chloride 109 mmol/L (96-108); Creatinine Clr Calc Pharmacy 41.5; Estimated Glomerular Filt Rate 54; Potassium 4.1 mmol/L (3.3-5.1); Sodium 141 mmol/L (135-145)
[2025-06-19 07:22] LABS: Platelet Count 16 X10*3/uL (160-400)
[2025-06-19 07:23] LABS: B Type Natriuretic Peptide 1044 pg/mL (<100)
[2025-06-19] MEDS: 0.9 % Sodium Chloride Flush 3 ML SYRINGE IVFLUSH ×3 (08:49→21:26)
--- NOTE | 2025-06-19 10:22 | P.CONCA_ITS ---
History of Present Illness History of Present Illness Date of Service: 06/19/25 Requesting physician: Kirt Myers Consult reason: congestive heart failure Chief complaint: Hypoxia, abnormal CT chest. Narrative: I was consulted to see Ace in cardiology consultation today for respiratory failure and suspected congestive heart failure. He is 80-year-old male not the best historian. Patient with prior history of myelodysplastic syndrome, chronic kidney disease, ischemic cardiomyopathy with the EF of 40-45% with prior RCA stent, diabetes, atrial fibrillation, interstitial lung disease with bronchiectasis related to asbestos exposure. Patient says he came to the hospital with fever and shows and was suspected to have pneumonia and subsequently was also noted to have decompensated congestive heart failure. Echocardiogram done shows persistent [id number] LV systolic dysfunction with regional wall motion abnormality consistent with ischemic cardiomyopathy. Patient is initially EKGs does show sinus rhythm. Patient is currently saying that he has does not have much shortness of breath however since yesterday has diuresed about 3 L and as per the hospitalist team looks a lot better in terms of his shortness of breath. He denies any current shortness of breath. Denies any chest pain. Denies any palpitations. His last stent was in September 12. He is currently not on antiplatelet regimen or coagulant for thrombocytopenia. There was no obvious source of bleeding as reported. Review of Systems 2 Constitutional: Constitutional: Reports chills, Reports fever(s) and Reports weakness Cardiovascular: Cardiovascular: Denies chest pain, Denies leg edema, Denies lightheadedness, Denies Loss of Consciousness, Denies palpitations, Reports dyspnea and Reports dyspnea on exertion Respiratory: Respiratory: Reports cough, Reports dyspnea and Reports dyspnea on exertion Gastrointestinal: Gastrointestinal: Reports no additional gastrointestinal complaints Genitourinary: Genitourinary: Reports no additional male genitourinary complaints Musculoskeletal: Musculoskeletal: Reports no additional musculoskeletal complaints Integumentary/Breasts: Skin/Breast: Reports system reviewed and no additional complaints, except as docu Neurologic: Reports system reviewed and no additional complaints, except as documented and Reports weakness Endocrine: Endocrine: Denies palpitations [facility] Past Medical History Medical History (Updated 06/19/25 @ 10:29 by Anastacio Chapa MD) Heart failure with reduced ejection fraction Thrombocytopenia Diabetes 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 Atrial fibrillation CKD stage 3 secondary to diabetes COPD exacerbation Atrial fibrillation with RVR Sciatica Prediabetes Asbestosis Chronic cough Surgical History Surgical History (Updated 06/15/25 @ 01:25 by RICHIE Courtney) Stented coronary artery S/P cardiac cath History of colonoscopy (~10/27/16) Hx of cardiac cath Social History Social History Household Members: Unknown / Unable to assess Housing: Unknown / Unable to assess Do you presently have visiting nurse or other home services: No Alcohol intake: current Alcohol intake frequency: holidays/special occasions only Patient Tobacco Use Status: Former Tobacco user Smoked in Last 30 Days: No Patient Interested in Nicotine Replacement: No Patient Given Instructions on How to Stop Smoking: No Second Hand Smoke Exposure: No Use of substances other than those prescribed or required for medical reasons: No Currently Displaying Signs/Symptoms of Drug Intoxication Withdrawal: No Have you been hit, kicked, punched, or otherwise hurt by someone within the past year? If so, by whom?: No Do you feel safe in your current relationship?: No Current Relationship Is there a partner from a previous relationship who is making you feel unsafe now?: No Are you made to feel afraid or neglected: No Advance Directives: Yes Advance Directives on File: Yes Advance Directives Date on File: 09/13/24 Do you have a plan to hurt others: No Plan Recently lost weight without trying: No Nutrition Risks: On aspiration precautions Poor oral hygiene: No service: No Current occupational status: retired and disabled Travel History Ebola Risk: Travel/Contact With Anyone From Affected Area/s: No Has Patient Experienced Ebola Symptoms: No Meds Allergies Allergy/AdvReac Type Severity Reaction Status Date / Time No Known Allergies Allergy Verified 06/14/25 22:39 Active Medications: Current Medications Acetaminophen (Acetaminophen 325 Mg Tablet) 650 mg PO Q6H PRN PRN Reason: Pain, Mild 1-3,fever,headache Last Admin: 06/15/25 02:16 Dose: 650 mg Albuterol/Ipratropium (Albuterol/Iprat 2.5/0.5mg 3 Ml Ampul.Neb) 3 ml INHALE RQ4H PRN PRN Reason: Shortness of Breath/Wheezing Allopurinol (Allopurinol 100 Mg Tablet) 100 mg PO DAILY COUNT INCLUDES THE [facility] Last Admin: 06/19/25 08:46 Dose: Not Given Atorvastatin Calcium (Atorvastatin Calcium 40 Mg Tablet) 40 mg PO BEDTIME COUNT INCLUDES THE [facility] Last Admin: 06/18/25 21:19 Dose: 40 mg Calcium Carbonate (Calcium Carbonate 750 Mg Tab.Chew) 750 mg PO Q4H PRN PRN Reason: Heartburn Ceftriaxone Sodium (Ceftriaxone Sodium 2 Gm Vial) 2 gm IVPUSH Q24H COUNT INCLUDES THE [facility] Last Admin: 06/18/25 09:56 Dose: 2 gm Dextrose (Dextrose 50 % 25 Gm/50 Ml Syringe) 25 gm IVPUSH Q15M PRN; Protocol PRN Reason: per Hypoglycemia Standing Ord. Furosemide (Furosemide 20 Mg/2 Ml Vial) 20 mg IVPUSH Q12H COUNT INCLUDES THE [facility]; Protocol Last Admin: 06/19/25 08:46 Dose: Not Given Glucose (Glucose Gel 15 Gm Gel..Gram.) 15 gm PO Q15M PRN; Protocol PRN Reason: per Hypoglycemia Standing Ord. Guaifenesin (Guaifenesin 200 Mg/10 Ml 10 Ml Liquid) 10 ml PO Q4H PRN PRN Reason: Cough Last Admin: 06/17/25 13:46 Dose: 10 ml Vancomycin HCl 1,000 mg/ (Sodium Chloride) 270 mls @ 270 mls/hr IV Q24H COUNT INCLUDES THE [facility] Last Infusion: 06/18/25 23:37 Dose: Infused Insulin Human Lispro (Insulin Lispro 100 Unit/Ml 3 Ml Vial) 0 unit SUBCUT QIDACHS COUNT INCLUDES THE [facility]; Protocol Last Admin: 06/19/25 07:35 Dose: Not Given Lorazepam (Lorazepam 0.5 Mg Tablet) 0.5 mg PO Q8H PRN PRN Reason: Anxiety Last Admin: 06/15/25 01:52 Dose: 0.5 mg Magnesium Hydroxide (Milk Of Magnesia 30 Ml Oral.Susp) 30 ml PO DAILY PRN PRN Reason: Constipation Melatonin (Melatonin 3 Mg Tablet) 6 mg PO BEDTIME PRN PRN Reason: Insomnia Methylprednisolone Sodium Succinate (Methylprednisolone Sod Succ 40 Mg/Ml Vial) 40 mg IVPUSH Q24H COUNT INCLUDES THE [facility] Last Admin: 06/18/25 14:45 Dose: 40 mg Metoprolol Tartrate (Metoprolol Tartrate 25 Mg Tablet) 25 mg PO BID COUNT INCLUDES THE [facility]; Protocol Last Admin: 06/19/25 08:49 Dose: 25 mg Ondansetron HCl (Ondansetron Hcl 4 Mg/2 Ml Vial) 4 mg IVPUSH Q8H PRN PRN Reason: Nausea and Vomiting Pharmacy Consult (Consult Rx Vancomycin Dosing) 1 each MISCELLANE DAILY PRN PRN Reason: Consult order Polyethylene Glycol (Polyethylene Glycol 3350 17 Gm Powd.Pack) 17 gm PO DAILY PRN PRN Reason: Constipation Senna (Sennosides 8.6 Mg Tablet) 17.2 mg PO BEDTIME COUNT INCLUDES THE [facility] Last Admin: 06/18/25 21:19 Dose: 17.2 mg Sodium Bicarbonate (Sodium Bicarbonate 650 Mg Tablet) 650 mg PO BID COUNT INCLUDES THE [facility] Last Admin: 06/19/25 08:46 Dose: Not Given Sodium Chloride (0.9 % Sodium Chloride Flush 3 Ml Syringe) 3 ml IVFLUSH QSHIFT COUNT INCLUDES THE [facility] Last Admin: 06/19/25 08:49 Dose: 3 ml Tramadol HCl (Tramadol Hcl 50 Mg Tablet) 50 mg PO TID PRN PRN Reason: moderate pain Home Medications ?Medication ?Instructions ?Recorded ?Confirmed ?Last Taken ?Type fluticasone furoate 200 1 inh inhalation DAILY PRN 0 06/15/25 06/15/25 Unknown History mcg/actuation blister powder for Shortness Of Breath O r Wheezing inhalation (Arnuity Ellipta) tramadol 50 mg tablet 50 mg PO TID PRN moderate pa in 06/15/25 06/15/25 Unknown History Physical Exam 2 Vital Signs: Vital Signs: Last Vital Signs Temp 97.4 F 06/19/25 07:06 Pulse 60 06/19/25 07:06 Resp 20 06/19/25 07:06 BP 150/62 H 06/19/25 08:49 Pulse Ox 99 06/19/25 07:06 O2 Del Method Nasal Cannula 06/19/25 07:06 O2 Flow Rate 1.5 06/19/25 07:06 BMI result Body Mass Index 26.6 Const: General: cooperative, comfortable, alert and awake Nutritional Appearance: average body habitus Orientation/consciousness: patient oriented x3 HEENT: Head: Yes normocephalic and Yes atraumatic Neck: Neck: Yes trachea midline, Yes supple and Yes no JVD Resp: Effort & Inspection: normal respiratory effort Auscultation: crackles Cardio: Jugular venous distension: no JVD Rate: regular rate Rhythm: r egular rhythm Heart sounds: S1 normal heart sound present, S2 normal heart sound present, no click, no gallops, no murmurs and no rubs GI: Auscultation: normal bowel sounds Skin: General skin exam: no rashes or lesions noted and ecchymosis Neuro: General: patient oriented x3 and no focal motor deficits Extrem: General: Yes no clubbing, cyanosis or edema Objective Labs and Meds 06/19/25 06:28 06/19/25 06:28 Lab results: Laboratory Results - last 24 hr 06/18/25 06/18/25 06/18/25 11:24 13:01 15:50 WBC RBC Hgb Hct MCV MCH MCHC RDW Plt Count MPV Immature Gran % (Auto) Neut % (Auto) Lymph % (Auto) [place] % (Auto) Eos % (Auto) Baso % (Auto) Lymph # (Auto) [place] # (Auto) Eos # (Auto) Baso # (Auto) Abs Immat Gran (auto) Absolute Neuts (auto) Absolute Nucleated RBC Nucleated RBC % (auto) Smear Tech's Comments Sodium Potassium Chloride Carbon Dioxide Anion Gap BUN Creatinine Estim Creat Clear Calc Estimated GFR POC Glucose 168 H 227 H Random Glucose Calcium B-Natriuretic Peptide Random Vancomycin Blood Type O Positive Antibody Screen NEGATIVE 06/18/25 06/18/25 06/19/25 20:00 20:19 06:28 WBC 27.5 H RBC 2.47 L Hgb 8.1 L Hct 25.8 L MCV 104.5 H MCH 32.8 MCHC 31.4 RDW 20.8 H Plt Count 16 L* MPV Not Reportable Immature Gran % (Auto) 4.3 H Neut % (Auto) 85.9 H Lymph % (Auto) 3.5 L [place] % (Auto) 6.0 Eos % (Auto) 0.0 Baso % (Auto) 0.3 Lymph # (Auto) 1.0 L [place] # (Auto) 1.6 H Eos # (Auto) 0.0 Baso # (Auto) 0.1 Abs Immat Gran (auto) 1.19 H Absolute Neuts (auto) 23.6 H Absolute Nucleated RBC 0.020 H Nucleated RBC % (auto) 0.1 Smear Tech's Comments VERIFIED Sodium 141 Potassium 4.1 Chloride 109 H Carbon Dioxide 24 Anion Gap 12 BUN 44 H Creatinine 1.28 Estim Creat Clear Calc 41.5 Estimated GFR 54 POC Glucose 332 H Random Glucose 206 H Calcium 8.4 B-Natriuretic Peptide 1044 H Random Vancomycin 14.5 L Blood Type Antibody Screen 06/19/25 07:01 WBC RBC Hgb Hct MCV MCH MCHC RDW Plt Count MPV Immature Gran % (Auto) Neut % (Auto) Lymph % (Auto) [place] % (Auto) Eos % (Auto) Baso % (Auto) Lymph # (Auto) [place] # (Auto) Eos # (Auto) Baso # (Auto) Abs Immat Gran (auto) Absolute Neuts (auto) Absolute Nucleated RBC Nucleated RBC % (auto) Smear Tech's Comments Sodium Potassium Chloride Carbon Dioxide Anion Gap BUN Creatinine Estim Creat Clear Calc Estimated GFR POC Glucose 171 H Random Glucose Calcium B-Natriuretic Peptide Random Vancomycin Blood Type Antibody Screen Imaging Radiologist's impression: Impressions Chest X-Ray 06/19/25 07:20 IMPRESSION: Improved aeration of the bilateral lower lung zones. Tiny bilateral pleural effusions. Electronically signed by: Ezio Alexander MD 06/19/2025 07:37 AM EDT RP Assessment and Plan (1) Heart failure with reduced ejection fraction: Status: Acute Heart failure with reduced ejection fraction with rising BNP with LV ejection fraction of 40-45% secondary to ischemic cardiomyopathy with wall motion abnormality in RCA territory with prior RCA stent. No evidence of acute myocardial ischemia. Heart failure probably estimated by acute respiratory failure related to his underlying pulmonary parenchymal disease on super important infection and exacerbated by his anemia. Patient currently doing better. Currently on Jardiance which will be continued on also on metoprolol which will be continued. I would consider adding Entresto to his regimen for neurohormonal modulator. Continue diuresis. Strict intake and output chart needs to be pursued. Follow electrolytes and renal function tomorrow. Continue support pulmonary function and treat his infection aggressively. Continue oxygen supplementation. Out of bed to chair. (2) Atrial fibrillation: Status: Acute Patient with paroxysmal atrial fibrillation currently maintaining rhythm. Continue metoprolol therapy. Use pulmonary specific bronchodilators. Currently off oral anticoagulation due to significant thrombocytopenia being followed by hospitalist team and Hematology team. High risk of thromboembolic disease (3) CAD (coronary artery disease): Status: Acute CAD with RCA stenting last August. Currently not on oral antiplatelet therapy again due to thrombocytopenia. That has a high risk of stent thrombosis although clinically this appears to be inappropriate path of action. Continue high-intensity statin therapy. Will follow with you Procedures Date of Service Date of Service: 06/19/25
[2025-06-19 11:02] LABS: Glucose, Whole Blood 216 mg/dL (60-115)
--- NOTE | 2025-06-19 15:08 | HO.PM.IMPN ---
Subjective Subjective Date of Service: 06/19/25 Interval History: Reports feels about the same as yesterday Clinically looks better, more interactive, less irritable CXR looked improved today after diuresing; bronch cancelled No acute events overnight Review of Systems SOB and cough, similar to prior No chest pain No edema Physical Exam Exam: Exam: General: AOx3, no acute distress Resp: Bibasilar crackles CVS: S1, S2, RRR; no JVD GI: +BS, NT, no distention Skin: Warm, dry Neuro: Cranial nerves II-XII grossly intact bilaterally. Motor grossly intact bilaterally Extremities: No edema Psych: Appropriate affect Vital Signs: Vital Signs: Last Vital Signs Temp 97.7 F 06/19/25 12:11 Pulse 76 06/19/25 12:11 Resp 19 06/19/25 12:11 BP 149/65 H 06/19/25 12:11 Pulse Ox 99 06/19/25 11:00 O2 Del Method Nasal Cannula 06/19/25 11:00 O2 Flow Rate 1.5 06/19/25 11:00 BMI result Body Mass Index 26.6 Objective Data Active Medications Acetaminophen (Acetaminophen 325 Mg Tablet) 650 mg PO Q6H PRN PRN Reason: Pain, Mild 1-3,fever,headache Last Admin: 06/15/25 02:16 Dose: 650 mg Documented By: MNOIK Albuterol/Ipratropium (Albuterol/Iprat 2.5/0.5mg 3 Ml Ampul.Neb) 3 ml INHALE RQ4H PRN PRN Reason: Shortness of Breath/Wheezing Allopurinol (Allopurinol 100 Mg Tablet) 100 mg PO DAILY [facility] Last Admin: 06/19/25 08:46 Dose: Not Given Documented By: TOMAS Non-Admin Reason: pt NPO Atorvastatin Calcium (Atorvastatin Calcium 40 Mg Tablet) 40 mg PO BEDTIME [facility] Last Admin: 06/18/25 21:19 Dose: 40 mg Documented By: RJ Calcium Carbonate (Calcium Carbonate 750 Mg Tab.Chew) 750 mg PO Q4H PRN PRN Reason: Heartburn Ceftriaxone Sodium (Ceftriaxone Sodium 2 Gm Vial) 2 gm IVPUSH Q24H [facility] Last Admin: 06/19/25 10:32 Dose: 2 gm Documented By: TOMAS Dextrose (Dextrose 50 % 25 Gm/50 Ml Syringe) 25 gm IVPUSH Q15M PRN; Protocol PRN Reason: per Hypoglycemia Standing Ord. Furosemide (Furosemide 20 Mg/2 Ml Vial) 20 mg IVPUSH Q12H [facility]; Protocol Last Admin: 06/19/25 08:46 Dose: Not Given Documented By: TOMAS Non-Admin Reason: NPO Glucose (Glucose Gel 15 Gm Gel..Gram.) 15 gm PO Q15M PRN; Protocol PRN Reason: per Hypoglycemia Standing Ord. Guaifenesin (Guaifenesin 200 Mg/10 Ml 10 Ml Liquid) 10 ml PO Q4H PRN PRN Reason: Cough Last Admin: 06/17/25 13:46 Dose: 10 ml Documented By: JOSE LUIS Vancomycin HCl 1,000 mg/ (Sodium Chloride) 270 mls @ 270 mls/hr IV Q24H [facility] Last Infusion: 06/18/25 23:37 Dose: Infused Documented By: RJ Insulin Human Lispro (Insulin Lispro 100 Unit/Ml 3 Ml Vial) 0 unit SUBCUT QIDACHS [facility]; Protocol Last Admin: 06/19/25 12:03 Dose: 2 unit Documented By: TOMAS Lorazepam (Lorazepam 0.5 Mg Tablet) 0.5 mg PO Q8H PRN PRN Reason: Anxiety Last Admin: 06/15/25 01:52 Dose: 0.5 mg Documented By: MONIK Magnesium Hydroxide (Milk Of Magnesia 30 Ml Oral.Susp) 30 ml PO DAILY PRN PRN Reason: Constipation Melatonin (Melatonin 3 Mg Tablet) 6 mg PO BEDTIME PRN PRN Reason: Insomnia Methylprednisolone Sodium Succinate (Methylprednisolone Sod Succ 40 Mg/Ml Vial) 40 mg IVPUSH Q24H [facility] Last Admin: 06/18/25 14:45 Dose: 40 mg Documented By: SANTOL Metoprolol Tartrate (Metoprolol Tartrate 25 Mg Tablet) 25 mg PO BID [facility]; Protocol Last Admin: 06/19/25 08:49 Dose: 25 mg Documented By: TOMAS Ondansetron HCl (Ondansetron Hcl 4 Mg/2 Ml Vial) 4 mg IVPUSH Q8H PRN PRN Reason: Nausea and Vomiting Pharmacy Consult (Consult Rx Vancomycin Dosing) 1 each MISCELLANE DAILY PRN PRN Reason: Consult order Polyethylene Glycol (Polyethylene Glycol 3350 17 Gm Powd.Pack) 17 gm PO DAILY PRN PRN Reason: Constipation Senna (Sennosides 8.6 Mg Tablet) 17.2 mg PO BEDTIME [facility] Last Admin: 06/18/25 21:19 Dose: 17.2 mg Documented By: RJ Sodium Bicarbonate (Sodium Bicarbonate 650 Mg Tablet) 650 mg PO BID [facility] Last Admin: 06/19/25 08:46 Dose: Not Given Documented By: TOMAS Non-Admin Reason: pt NPO Sodium Chloride (0.9 % Sodium Chloride Flush 3 Ml Syringe) 3 ml IVFLUSH QSHIFT [facility] Last Admin: 06/19/25 08:49 Dose: 3 ml Documented By: TOMAS Tramadol HCl (Tramadol Hcl 50 Mg Tablet) 50 mg PO TID PRN PRN Reason: moderate pain Labs 06/19/25 06:28 06/19/25 06:28 Labs: Laboratory Results - last 24 hr 06/18/25 06/18/25 06/18/25 13:01 15:50 20:00 MCV MCH MCHC RDW Plt Count MPV Immature Gran % (Auto) Neut % (Auto) Lymph % (Auto) [place] % (Auto) Eos % (Auto) Baso % (Auto) Lymph # (Auto) [place] # (Auto) Eos # (Auto) Baso # (Auto) Abs Immat Gran (auto) Absolute Neuts (auto) Absolute Nucleated RBC Nucleated RBC % (auto) Smear Tech's Comments Anion Gap Estim Creat Clear Calc Estimated GFR POC Glucose 227 H Random Glucose Calcium B-Natriuretic Peptide Random Vancomycin 14.5 L Blood Type O Positive Antibody Screen NEGATIVE 06/18/25 06/19/25 06/19/25 20:19 06:28 07:01 MCV 104.5 H MCH 32.8 MCHC 31.4 RDW 20.8 H Plt Count 16 L* MPV Not Reportable Immature Gran % (Auto) 4.3 H Neut % (Auto) 85.9 H Lymph % (Auto) 3.5 L [place] % (Auto) 6.0 Eos % (Auto) 0.0 Baso % (Auto) 0.3 Lymph # (Auto) 1.0 L [place] # (Auto) 1.6 H Eos # (Auto) 0.0 Baso # (Auto) 0.1 Abs Immat Gran (auto) 1.19 H Absolute Neuts (auto) 23.6 H Absolute Nucleated RBC 0.020 H Nucleated RBC % (auto) 0.1 Smear Tech's Comments VERIFIED Anion Gap 12 Estim Creat Clear Calc 41.5 Estimated GFR 54 POC Glucose 332 H 171 H Random Glucose 206 H Calcium 8.4 B-Natriuretic Peptide 1044 H Random Vancomycin Blood Type Antibody Screen 06/19/25 10:58 MCV MCH MCHC RDW Plt Count MPV Immature Gran % (Auto) Neut % (Auto) Lymph % (Auto) [place] % (Auto) Eos % (Auto) Baso % (Auto) Lymph # (Auto) [place] # (Auto) Eos # (Auto) Baso # (Auto) Abs Immat Gran (auto) Absolute Neuts (auto) Absolute Nucleated RBC Nucleated RBC % (auto) Smear Tech's Comments Anion Gap Estim Creat Clear Calc Estimated GFR POC Glucose 216 H Random Glucose Calcium B-Natriuretic Peptide Random Vancomycin Blood Type Antibody Screen Assessment and Plan (1) Thrombocytopenia: Status: Acute (2) Heart failure with reduced ejection fraction: Status: Acute Plan 79-year-old male with a past medical history significant for AFib on Eliquis, CAD, NSTEMI 09/12 s/p RENE mid RCA on Plavix, prediabtes , and bronchiectasis secondary to asbestosis, who presented to the ED today due to shortness of breath and weakness for the past few days. 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 chest CT: Bilateral multifocal airspace opacities and pleural effusions. Findings may represent sequelae of infection, inflammation, pneumonitis in the acute setting. Recommend follow-up evaluation to resolution with particular attention to the left upper lobe opacities, to exclude underlying neoplasm. Initial repeat CXR with worsening airspace opacities in both lower lung zones and small bilateral pleural effusions CXR today with improved aeration of bilateral lower lungs and tiny bilateral pleural effusions Pulm following-continue antibotics vanco(intiaed on 06/17), zosyn switched to ceftriaxone Continue iv steroids Bronch with biopsy canceled due to improved CXR after diuresing HFrEf BNP 894-->1044 Output around 3L yesterday Echo with moderately reduced LV ejection fraction 40-45% with grade 2 diastolic dysfunction Lasix IV X1 in ED Continue Lasix 20mg IV bid Cardiology following, recommend continuing metoprolol and Jardiance, and starting Entresto Monitor BMP, 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 if zosyn is contibuting /changed to ceftriaxone). plan : no sign of bleeding cbc daily continue iv steriods 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 follow bmp. Now back to baseline Nephrology signed off Acute lactic acidosis: Seems lactic acid elevated to dehydration/hyperglycemia , no further trending unless clinical deterioration. Chronic Thrombocytopenia : moniter cbc closely. Has received platelets with minimal response Platelets dropped to 16, will transfuse additional unit AFib : now NSR-hold Eliquis ,continue metoprolol. CAD, hx recent NSTEMI 08/2024, s/p RENE mid RCA:hold Plavix. continue metoprolol and atorvastatin ? hyperglycemia likley due to steriods use: check poc. Hba1c levels 5.4 diabetic diet added fs with sliding scale coverage Full code - previously was DNR/DNI, discussion with patient and son, patient would like to be full code VTE prophylaxis: mech devices sec to thrombocytopenia Patient with sepsis secondary to acute exacerbation of bronchiectasis with acute hypoxic respiratory failure, thrombocytopenia therefore will require continued inpatient hospitalization .antibiotics. Quality Stroke Does the patient have a stroke diagnosis?: No Reason for No Anti-thrombotic by Day Two: Contraindicated (low PLT count ) VTE Prior VTE?: No VTE Risk Level:: Medical - moderate - high VTE Device Contraindication: N/A - Device Ordered VTE Drug Contraindication: Treatment Not Indicated
[2025-06-19 16:10] LABS: Glucose, Whole Blood 245 mg/dL (60-115)
[2025-06-19] MEDS: Sacubitril/Valsartan 24/26 1 TAB TABLET PO (17:43)
[2025-06-19 20:18] LABS: Glucose, Whole Blood 336 mg/dL (60-115)
--- NOTE | 2025-06-19 20:23 | HE.PHANOTE ---
re [facility] Patients level came back this morning at 14.4. Will continue to monitor renal function daily. Next level to be pulled 06/21 @1999. Will continue with current dose
[2025-06-19] MEDS: Furosemide 20 MG/2 ML VIAL IVPUSH (21:28)
[2025-06-20] VITALS (7 sets, daily range): BP systolic 127–155; BP diastolic 60–74; PULSE 53–81; RESP 16–20; TEMP 35.8–36.6; O2SAT 95–99
[2025-06-20 07:31] LABS: Hemoglobin 8.9 g/dl (14.0-18.0); Mean Corpuscular Volume 105.2 fL (80.0-98.0); NRBC Abs Auto 0.000 X10*3/uL (0.0-0.012); NRBC Pct Auto 0.0 /100WBC (0.0-0.2)
[2025-06-20 07:33] LABS: Hematocrit 28.3 % (42.0-52.0); Mean Corpuscular HGB Conc 31.4 g/dl (31.0-36.0); Mean Corpuscular Hemoglobin 33.1 pg (27.0-33.0); Red Blood Count 2.69 X10*6/uL (4.60-5.80); White Blood Count 27.7 X10*3/uL (4.8-10.8)
[2025-06-20 07:40] LABS: Glucose, Whole Blood 219 mg/dL (60-115)
[2025-06-20 07:42] LABS: PLT ABN DIST 1; Platelet Count 19 X10*3/uL (160-400)
[2025-06-20 07:46] LABS: Anion Gap 14 (12-20); Blood Urea Nitrogen 42 mg/dL (9-16); Calcium 8.4 mg/dL (8.4-10.2); Carbon Dioxide 23 mmol/L (22-29); Chloride 108 mmol/L (96-108); Creatinine Clr Calc Pharmacy 43.2; Estimated Glomerular Filt Rate 56; Potassium 4.1 mmol/L (3.3-5.1); Sodium 141 mmol/L (135-145)
[2025-06-20] MEDS: Furosemide 20 MG/2 ML VIAL IVPUSH (08:35)
[2025-06-20] MEDS: 0.9 % Sodium Chloride Flush 3 ML SYRINGE IVFLUSH ×3 (08:36→22:09)
[2025-06-20] MEDS: Sacubitril/Valsartan 24/26 1 TAB TABLET PO (08:36)
--- NOTE | 2025-06-20 10:16 | PM.PNCARD ---
Subjective Subjective Date of Service: 06/20/25 Principal diagnosis: CHF, ischemic cardiomyopathy. Interval history: Patient denies any shortness of breath says feels comfortable. Denies any chest pain. Oxygen saturation has remained adequate. Negative output of about 1 L. Review of Systems Constitutional: Reports no additional constitutional complaints Eyes: Reports no additional eye complaints Cardiovascular: Denies rapid heart rate, Denies lightheadedness, Denies Loss of Consciousness, Denies orthopnea and Denies paroxysmal nocturnal dyspnea Respiratory: Reports cough Gastrointestinal: Reports no additional gastrointestinal complaints Musculoskeletal: Reports no additional musculoskeletal complaints Skin/Breast: Reports system reviewed and no additional complaints, except as docu Reports system reviewed and no additional complaints, except as documented Physical Exam Vital Signs: Last Vital Signs Temp 96.6 F L 06/20/25 07:28 Pulse 62 06/20/25 07:28 Resp 18 06/20/25 07:28 BP 155/71 H 06/20/25 07:28 Pulse Ox 98 06/20/25 07:28 O2 Del Method Nasal Cannula 06/20/25 07:28 O2 Flow Rate 2 06/20/25 07:28 BMI result Body Mass Index 26.6 Const General: cooperative, comfortable, alert and awake Nutritional Appearance: average body habitus Orientation/consciousness: patient oriented x3 HEENT Head: Yes normocephalic and Yes atraumatic Neck Neck: Yes trachea midline, Yes supple and Yes no JVD Resp Effort & Inspection: normal respiratory effort Auscultation: crackles Cardio Jugular venous distension: no JVD Rate: regular rate Rhythm: regular rhythm Heart sounds: S1 normal heart sound present, S2 normal heart sound present, no click, no gallops, no murmurs and no rubs GI Auscultation: normal bowel sounds Skin General skin exam: no rashes or lesions noted and ecchymosis Neuro General: patient oriented x3 and no focal motor deficits Extrem General: Yes no clubbing, cyanosis or edema Objective Labs and Meds 06/20/25 06:39 06/20/25 06:39 Lab results: Laboratory Results - last 24 hr 06/18/25 06/19/25 06/19/25 13:01 10:58 16:01 WBC RBC Hgb Hct MCV MCH MCHC RDW Plt Count MPV Absolute Nucleated RBC Nucleated RBC % (auto) Sodium Potassium Chloride Carbon Dioxide Anion Gap BUN Creatinine Estim Creat Clear Calc Estimated GFR POC Glucose 216 H 245 H Random Glucose Calcium Random Vancomycin Blood Type O Positive Antibody Screen NEGATIVE 06/19/25 06/19/25 06/20/25 19:52 20:15 06:39 WBC 27.7 H RBC 2.69 L Hgb 8.9 L Hct 28.3 L MCV 105.2 H MCH 33.1 H MCHC 31.4 RDW 20.9 H Plt Count 19 L* MPV Not Reportable Absolute Nucleated RBC 0.000 Nucleated RBC % (auto) 0.0 Sodium 141 Potassium 4.1 Chloride 108 Carbon Dioxide 23 Anion Gap 14 BUN 42 H Creatinine 1.23 Estim Creat Clear Calc 43.2 Estimated GFR 56 POC Glucose 336 H Random Glucose 233 H Calcium 8.4 Random Vancomycin 14.4 L Blood Type Antibody Screen 06/20/25 07:32 WBC RBC Hgb Hct MCV MCH MCHC RDW Plt Count MPV Absolute Nucleated RBC Nucleated RBC % (auto) Sodium Potassium Chloride Carbon Dioxide Anion Gap BUN Creatinine Estim Creat Clear Calc Estimated GFR POC Glucose 219 H Random Glucose Calcium Random Vancomycin Blood Type Antibody Screen Progress Note: A&P Assessment and plan (1) Heart failure with reduced ejection fraction: Status: Acute Assessment and Plan: Heart failure with reduced ejection fraction with [id number] LV systolic dysfunction. Tolerating Entresto. Blood pressure is still elevated. Further uptitrate Entresto therapy. Continue Jardiance as well as metoprolol therapy. Can switch to oral diuretics. Continue to monitor strict intake and output chart. Continue support pulmonary and treat med from that perspective including COPD exacerbation. Out of bed to chair. Check BNP tomorrow. Will sign of the case. Thank you for allowing me to partake in his care Time Spent With Patient Time: Total time managing care of this patient today ____ minutes. Progress Note: Quality Stroke Does the patient have a stroke diagnosis?: No Reason for No Anti-thrombotic by Day Two: Contraindicated (low PLT count ) Procedures Date of Service Date of Service: 06/20/25
[2025-06-20 10:46] LABS: B Type Natriuretic Peptide 595 pg/mL (<100)
[2025-06-20 10:54] LABS: Glucose, Whole Blood 319 mg/dL (60-115)
--- NOTE | 2025-06-20 11:57 | P.PNIM_ITS ---
Subjective Subjective Date of Service: 06/21/25 Interval History: He says he feels the same, O2 is gooe, platlets is down to 15 Review of Systems SOB and cough, similar to prior No chest pain No edema Physical Exam 2 Exam: Exam: General: AOx3, no acute distress Resp: Bibasilar crackles CVS: S1, S2, RRR; no JVD GI: +BS, NT, no distention Skin: Warm, dry Neuro: Cranial nerves II-XII grossly intact bilaterally. Motor grossly intact bilaterally Extremities: No edema Psych: Appropriate affect Vital Signs: Vital Signs: Last Vital Signs Temp 96.7 F L 06/20/25 11:43 Pulse 53 06/20/25 11:43 Resp 16 06/20/25 11:43 BP 148/73 H 06/20/25 11:43 Pulse Ox 99 06/20/25 11:43 O2 Del Method Nasal Cannula 06/20/25 11:43 O2 Flow Rate 2 06/20/25 11:43 BMI result Body Mass Index 26.6 Objective Data Active Medications Acetaminophen (Acetaminophen 325 Mg Tablet) 650 mg PO Q6H PRN PRN Reason: Pain, Mild 1-3,fever,headache Last Admin: 06/15/25 02:16 Dose: 650 mg Documented By: MONIK Albuterol/Ipratropium (Albuterol/Iprat 2.5/0.5mg 3 Ml Ampul.Neb) 3 ml INHALE RQ4H PRN PRN Reason: Shortness of Breath/Wheezing Allopurinol (Allopurinol 100 Mg Tablet) 100 mg PO DAILY [facility] Last Admin: 06/20/25 08:35 Dose: 100 mg Documented By: VIKKI Atorvastatin Calcium (Atorvastatin Calcium 40 Mg Tablet) 40 mg PO BEDTIME [facility] Last Admin: 06/19/25 21:27 Dose: 40 mg Documented By: RJ Calcium Carbonate (Calcium Carbonate 750 Mg Tab.Chew) 750 mg PO Q4H PRN PRN Reason: Heartburn Ceftriaxone Sodium (Ceftriaxone Sodium 2 Gm Vial) 2 gm IVPUSH Q24H [facility] Last Admin: 06/20/25 08:36 Dose: 2 gm Documented By: VIKKI Dextrose (Dextrose 50 % 25 Gm/50 Ml Syringe) 25 gm IVPUSH Q15M PRN; Protocol PRN Reason: per Hypoglycemia Standing Ord. Furosemide (Furosemide 20 Mg Tablet) 20 mg PO BID@0900,1800 [facility]; Protocol Glucose (Glucose Gel 15 Gm Gel..Gram.) 15 gm PO Q15M PRN; Protocol PRN Reason: per Hypoglycemia Standing Ord. Guaifenesin (Guaifenesin 200 Mg/10 Ml 10 Ml Liquid) 10 ml PO Q4H PRN PRN Reason: Cough Last Admin: 06/17/25 13:46 Dose: 10 ml Documented By: JOSE LUIS Vancomycin HCl 1,000 mg/ (Sodium Chloride) 270 mls @ 270 mls/hr IV Q24H [facility] Last Infusion: 06/19/25 23:14 Dose: Infused Documented By: RJ Insulin Human Lispro (Insulin Lispro 100 Unit/Ml 3 Ml Vial) 0 unit SUBCUT QIDACHS [facility]; Protocol Last Admin: 06/20/25 11:22 Dose: 6 unit Documented By: MIK Magnesium Hydroxide (Milk Of Magnesia 30 Ml Oral.Susp) 30 ml PO DAILY PRN PRN Reason: Constipation Melatonin (Melatonin 3 Mg Tablet) 6 mg PO BEDTIME PRN PRN Reason: Insomnia Metoprolol Tartrate (Metoprolol Tartrate 25 Mg Tablet) 25 mg PO BID [facility]; Protocol Last Admin: 06/20/25 08:35 Dose: 25 mg Documented By: VIKKI Ondansetron HCl (Ondansetron Hcl 4 Mg/2 Ml Vial) 4 mg IVPUSH Q8H PRN PRN Reason: Nausea and Vomiting Pharmacy Consult (Consult Rx Vancomycin Dosing) 1 each MISCELLANE DAILY PRN PRN Reason: Consult order Polyethylene Glycol (Polyethylene Glycol 3350 17 Gm Powd.Pack) 17 gm PO DAILY PRN PRN Reason: Constipation Sacubitril/Valsartan (Sacubitril/Valsartan 49/51 1 Tab Tablet) 1 tab PO BID [facility]; Protocol Senna (Sennosides 8.6 Mg Tablet) 17.2 mg PO BEDTIME [facility] Last Admin: 06/19/25 21:27 Dose: 17.2 mg Documented By: RJ Sodium Bicarbonate (Sodium Bicarbonate 650 Mg Tablet) 650 mg PO BID [facility] Last Admin: 06/20/25 08:35 Dose: 650 mg Documented By: VIKKI Sodium Chloride (0.9 % Sodium Chloride Flush 3 Ml Syringe) 3 ml IVFLUSH QSHIFT [facility] Last Admin: 06/20/25 08:36 Dose: 3 ml Documented By: VIKKI Labs 06/21/25 07:03 06/21/25 07:03 Labs: Laboratory Results - last 24 hr 06/18/25 06/19/25 06/19/25 13:01 16:01 19:52 MCV MCH MCHC RDW Plt Count MPV Absolute Nucleated RBC Nucleated RBC % (auto) Anion Gap Estim Creat Clear Calc Estimated GFR POC Glucose 245 H Random Glucose Calcium B-Natriuretic Peptide Random Vancomycin 14.4 L Blood Type O Positive Antibody Screen NEGATIVE 06/19/25 06/20/25 06/20/25 20:15 06:39 07:32 MCV 105.2 H MCH 33.1 H MCHC 31.4 RDW 20.9 H Plt Count 19 L* MPV Not Reportable Absolute Nucleated RBC 0.000 Nucleated RBC % (auto) 0.0 Anion Gap 14 Estim Creat Clear Calc 43.2 Estimated GFR 56 POC Glucose 336 H 219 H Random Glucose 233 H Calcium 8.4 B-Natriuretic Peptide 595 H Random Vancomycin Blood Type Antibody Screen 06/20/25 10:50 MCV MCH MCHC RDW Plt Count MPV Absolute Nucleated RBC Nucleated RBC % (auto) Anion Gap Estim Creat Clear Calc Estimated GFR POC Glucose 319 H Random Glucose Calcium B-Natriuretic Peptide Random Vancomycin Blood Type Antibody Screen Microbiology Microbiology Results: Microbiology 06/14/25 22:48 Blood Culture - Final Blood - Venous No growth after 5 days. 06/14/25 22:48 Blood Culture - Final Blood - Venous No growth after 5 days. Assessment and Plan (1) Thrombocytopenia: Status: Acute (2) Heart failure with reduced ejection fraction: Status: Acute Plan 79-year-old male with a past medical history significant for AFib on Eliquis, CAD, NSTEMI 09/12 s/p RENE mid RCA on Plavix, prediabtes , and bronchiectasis secondary to asbestosis, who presented to the ED today due to shortness of breath and weakness for the past few days. Sepsis secondary to acute exacerbation of pneumonitis with acute hypoxic respiratory failure Likely in the setting of immunosuppression from underlying CMML; chemotherapy reaction less likely WBC count improving, blood cultures negative chest CT: Bilateral multifocal airspace opacities and pleural effusions. Findings may represent sequelae of infection, inflammation, pneumonitis in the acute setting. Recommend follow-up evaluation to resolution with particular attention to the left upper lobe opacities, to exclude underlying neoplasm. Initial repeat CXR with worsening airspace opacities in both lower lung zones and small bilateral pleural effusions CXR today with improved aeration of bilateral lower lungs and tiny bilateral pleural effusions Pulm following-continue antibotics vanco(intiaed on 06/17), zosyn switched to ceftriaxone ,changed Abx to Augmentin Stop IV steroid 06/20 Bronch with biopsy canceled due to improved CXR after diuresing HFrEf BNP 894-->1044-->595 today Negative 4.5 L Echo with moderately reduced LV ejection fraction 40-45% with grade 2 diastolic dysfunction Lasix IV X1 in ED to PO today Increase Entresto per card, continue Jardiance and metoprolol. 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 if zosyn is contibuting /changed to ceftriaxone). 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 The Chronic Thrombocytopenia : moniter cbc closely. Has received platelets with minimal response Platelets dropped to 15, check hem if transfusion is warranted no signs of bleeding AFib : now NSR-hold Eliquis ,continue metoprolol. CAD, hx recent NSTEMI 08/2024, s/p RENE mid RCA:hold Plavix. continue metoprolol and atorvastatin Exit case then hyperglycemia likley due to steriods use: check poc. Hba1c levels 5.4 diabetic diet added fs with sliding scale coverage Full code - previously was DNR/DNI, discussion with patient and son, patient would like to be full code VTE prophylaxis: mech devices sec to thrombocytopenia Patient with sepsis secondary to acute exacerbation of bronchiectasis with acute hypoxic respiratory failure, thrombocytopenia therefore will require continued inpatient hospitalization .antibiotics. Quality Stroke Does the patient have a stroke diagnosis?: No Reason for No Anti-thrombotic by Day Two: Contraindicated (low PLT count ) VTE Prior VTE?: No VTE Risk Level:: Medical - moderate - high VTE Device Contraindication: N/A - Device Ordered VTE Drug Contraindication: Treatment Not Indicated
[2025-06-20 15:50] LABS: Glucose, Whole Blood 213 mg/dL (60-115)
[2025-06-20 19:55] LABS: Glucose, Whole Blood 229 mg/dL (60-115)
[2025-06-20] MEDS: Sacubitril/Valsartan 49/51 1 TAB TABLET PO (22:06)
[2025-06-21] VITALS (11 sets, daily range): BP systolic 87–142; BP diastolic 54–71; PULSE 68–141; RESP 12–18; TEMP 36.1–36.7; O2SAT 94–99
[2025-06-21 07:35] LABS: Hematocrit 29.1 % (42.0-52.0); Hemoglobin 9.1 g/dl (14.0-18.0); Mean Corpuscular HGB Conc 31.3 g/dl (31.0-36.0); Mean Corpuscular Hemoglobin 32.9 pg (27.0-33.0); Mean Corpuscular Volume 105.1 fL (80.0-98.0); NRBC Abs Auto 0.000 X10*3/uL (0.0-0.012); NRBC Pct Auto 0.0 /100WBC (0.0-0.2); Red Blood Count 2.77 X10*6/uL (4.60-5.80); White Blood Count 21.4 X10*3/uL (4.8-10.8)
[2025-06-21 07:45] LABS: Glucose, Whole Blood 168 mg/dL (60-115)
[2025-06-21 07:45] LABS: Creatinine Clr Calc Pharmacy 31.8; Estimated Glomerular Filt Rate 40
[2025-06-21 07:48] LABS: Platelet Count 15 X10*3/uL (160-400)
[2025-06-21] MEDS: Sacubitril/Valsartan 49/51 1 TAB TABLET PO ×2 (09:29→20:54)
[2025-06-21] MEDS: 0.9 % Sodium Chloride Flush 3 ML SYRINGE IVFLUSH ×2 (09:29→20:55)
[2025-06-21 12:00] LABS: Glucose, Whole Blood 232 mg/dL (60-115)
[2025-06-21 16:41] LABS: Glucose, Whole Blood 251 mg/dL (60-115)
[2025-06-21 19:44] LABS: Glucose, Whole Blood 193 mg/dL (60-115)
[2025-06-21] MEDS: Lactated Ringers 500 ML 999 ML IV (23:11)
[2025-06-22] VITALS (15 sets, daily range): BP systolic 84–125; BP diastolic 46–64; PULSE 63–155; RESP 14–18; TEMP 36.3–37.1; O2SAT 95–100
--- NOTE | 2025-06-22 05:39 | PM.EVENT ---
Event Note Date of Service: 06/22/25 Event Note: AFib with RVR: Patient heart rate has been increased to 140s to 150s. Received p.o. metoprolol earlier in the night with no significant improvement. Followed by patient was given a dose of IV metoprolol. But still heart rate continued to be elevated in 140s. Patient blood pressure was on the soft side. Given gentle IV fluids. Given continued elevated heart rate-patient is given digoxin 0.125 mg IV x2 Follow up digoxin levels. Follow-up cardiology At around 05:30 patient heart rate converted to sinus at 82 beats per minute Low blood pressure: Patient blood pressure went as low as 80s systolic. Given 500 cc IV fluids. Blood pressure improved. Held Entresto. TALA: Creatinine elevated to 1.69. Follow-up a.m. creatinine. Patient received IV fluids. Avoid nephrotoxins. Time Spent With Patient Time: Total time managing care of this patient today ____ minutes.
--- NOTE | 2025-06-22 06:32 | PC.NURSE ---
Patient went into uncontrolled a fib early in the shift with h.r in the 140-150 range. He was asymptomatic, denies cp, sob, dizzyness etc. MD aware and up to assess patient. IV metoprolol ordered but patients blood pressure was too low to administer. MD ordered a total of 500ml LR to infuse over 2 hours and to assess after first 250 for crackles or respiratory changes. Patient tolerated IV fluids without issue. Blood pressure came up and meds administered throughout the night without change. Patients h.r finally broke at 0500 and is currently steady in SR with a h.r of 75.
[2025-06-22 07:31] LABS: Glucose, Whole Blood 159 mg/dL (60-115)
[2025-06-22 08:20] LABS: Digoxin 1.0 ng/mL (0.8-2.0)
[2025-06-22 09:02] LABS: Hematocrit 28.2 % (42.0-52.0); Hemoglobin 9.0 g/dl (14.0-18.0); Imm Gran Abs Auto 0.25 X10*3/uL (0.00-0.03); Imm Gran Pct Auto 1.4 % (0.0-0.4); Lymphocytes Absolute Auto 1.6 X10*3/uL (1.2-4.9); MANUAL DIFF FLAG SCAN; Mean Corpuscular HGB Conc 31.9 g/dl (31.0-36.0); Mean Corpuscular Hemoglobin 33.6 pg (27.0-33.0); Mean Corpuscular Volume 105.2 fL (80.0-98.0); NRBC Abs Auto 0.000 X10*3/uL (0.0-0.012); NRBC Pct Auto 0.0 /100WBC (0.0-0.2); Red Blood Count 2.68 X10*6/uL (4.60-5.80); SCAN SMEAR FLAG 1; White Blood Count 17.3 X10*3/uL (4.8-10.8)
[2025-06-22 09:06] LABS: Platelet Count 14 X10*3/uL (160-400)
--- NOTE | 2025-06-22 09:12 | P.PNIM_ITS ---
Subjective Subjective Date of Service: 06/22/25 Interval History: Has no new complaint, Plat is 14 today after 1 unit yesterday, no new complaint Review of Systems No edema Physical Exam 2 Exam: Exam: General: AOx3, no acute distress Resp: Bibasilar crackles CVS: S1, S2, RRR; no JVD GI: +BS, NT, no distention Skin: Warm, dry Neuro: Cranial nerves II-XII grossly intact bilaterally. Motor grossly intact bilaterally Extremities: No edema Psych: Appropriate affect Vital Signs: Vital Signs: Last Vital Signs Temp 97.3 F 06/22/25 08:43 Pulse 79 06/22/25 08:43 Resp 16 06/22/25 08:43 BP 113/57 L 06/22/25 08:43 Pulse Ox 98 06/22/25 07:02 O2 Del Method Nasal Cannula 06/22/25 07:02 O2 Flow Rate 2 06/22/25 07:02 BMI result Body Mass Index 26.6 Objective Data Active Medications Acetaminophen (Acetaminophen 325 Mg Tablet) 650 mg PO Q6H PRN PRN Reason: Pain, Mild 1-3,fever,headache Last Admin: 06/15/25 02:16 Dose: 650 mg Documented By: MONIK Allopurinol (Allopurinol 100 Mg Tablet) 100 mg PO DAILY [facility] Last Admin: 06/21/25 09:29 Dose: 100 mg Documented By: VIKKI Amoxicillin/Clavulanate Potassium (Amoxicillin/Potassium Clav 875 Mg Tablet) 875 mg PO BID [facility] Last Admin: 06/21/25 20:54 Dose: 875 mg Documented By: DAMARIS Atorvastatin Calcium (Atorvastatin Calcium 40 Mg Tablet) 40 mg PO BEDTIME [facility] Last Admin: 06/21/25 20:55 Dose: 40 mg Documented By: DAMARIS Calcium Carbonate (Calcium Carbonate 750 Mg Tab.Chew) 750 mg PO Q4H PRN PRN Reason: Heartburn Dextrose (Dextrose 50 % 25 Gm/50 Ml Syringe) 25 gm IVPUSH Q15M PRN; Protocol PRN Reason: per Hypoglycemia Standing Ord. Furosemide (Furosemide 20 Mg Tablet) 20 mg PO BID@0900,1800 [facility]; Protocol Last Admin: 06/21/25 17:39 Dose: 20 mg Documented By: JANELLE Glucose (Glucose Gel 15 Gm Gel..Gram.) 15 gm PO Q15M PRN; Protocol PRN Reason: per Hypoglycemia Standing Ord. Guaifenesin (Guaifenesin 200 Mg/10 Ml 10 Ml Liquid) 10 ml PO Q4H PRN PRN Reason: Cough Last Admin: 06/17/25 13:46 Dose: 10 ml Documented By: JOSE LUIS Insulin Human Lispro (Insulin Lispro 100 Unit/Ml 3 Ml Vial) 0 unit SUBCUT QIDACHS [facility]; Protocol Last Admin: 06/22/25 08:21 Dose: Not Given Documented By: MERY Non-Admin Reason: No Insulin Coverage Magnesium Hydroxide (Milk Of Magnesia 30 Ml Oral.Susp) 30 ml PO DAILY PRN PRN Reason: Constipation Melatonin (Melatonin 3 Mg Tablet) 6 mg PO BEDTIME PRN PRN Reason: Insomnia Metoprolol Tartrate (Metoprolol Tartrate 25 Mg Tablet) 25 mg PO BID [facility]; Protocol Last Admin: 06/21/25 20:55 Dose: 25 mg Documented By: DAMARIS Metoprolol Tartrate (Metoprolol Tartrate 5 Mg/5 Ml Vial) 5 mg IVPUSH Q6H PRN; Protocol PRN Reason: Heart Rate >100 Last Admin: 06/22/25 02:42 Dose: 5 mg Documented By: DAMARIS Ondansetron HCl (Ondansetron Hcl 4 Mg/2 Ml Vial) 4 mg IVPUSH Q8H PRN PRN Reason: Nausea and Vomiting Polyethylene Glycol (Polyethylene Glycol 3350 17 Gm Powd.Pack) 17 gm PO DAILY PRN PRN Reason: Constipation Sacubitril/Valsartan (Sacubitril/Valsartan 49/51 1 Tab Tablet) 1 tab PO BID [facility]; Protocol On Hold: 06/21/25 23:01 Comment: low bp Last Admin: 06/21/25 20:54 Dose: 1 tab Documented By: DAMARIS Senna (Sennosides 8.6 Mg Tablet) 17.2 mg PO BEDTIME [facility] Last Admin: 06/21/25 20:55 Dose: 17.2 mg Documented By: DAMARIS Sodium Bicarbonate (Sodium Bicarbonate 650 Mg Tablet) 650 mg PO BID [facility] Last Admin: 06/21/25 20:55 Dose: 650 mg Documented By: DAMARIS Sodium Chloride (0.9 % Sodium Chloride Flush 3 Ml Syringe) 3 ml IVFLUSH QSHIFT [facility] Last Admin: 06/21/25 20:55 Dose: 3 ml Documented By: DAMARIS Labs 06/22/25 08:24 06/21/25 07:03 Labs: Laboratory Results - last 24 hr 06/21/25 06/21/25 06/21/25 11:56 15:31 16:05 MCV MCH MCHC RDW Plt Count MPV Hold Purple Top SEE NOTE POC Glucose 232 H 251 H Hold Yellow Top See Note Random Vancomycin Digoxin Blood Type O Positive Antibody Screen NEGATIVE 06/21/25 06/21/25 06/22/25 19:36 19:55 07:06 MCV MCH MCHC RDW Plt Count MPV Hold Purple Top POC Glucose 193 H 159 H Hold Yellow Top Random Vancomycin 10.8 L Digoxin Blood Type Antibody Screen 06/22/25 06/22/25 07:43 08:24 MCV 105.2 H MCH 33.6 H MCHC 31.9 RDW 21.4 H Plt Count 14 L* MPV TNP Hold Purple Top POC Glucose Hold Yellow Top Random Vancomycin Digoxin 1.0 Blood Type Antibody Screen Microbiology Microbiology Results: Microbiology 06/14/25 22:48 Blood Culture - Final Blood - Venous No growth after 5 days. 06/14/25 22:48 Blood Culture - Final Blood - Venous No growth after 5 days. Assessment and Plan (1) Thrombocytopenia: Status: Acute (2) Heart failure with reduced ejection fraction: Status: Acute Plan 79-year-old male with a past medical history significant for AFib on Eliquis, CAD, NSTEMI 09/12 s/p RENE mid RCA on Plavix, prediabtes , and bronchiectasis secondary to asbestosis, who presented to the ED today due to shortness of breath and weakness for the past few days. Sepsis secondary to acute exacerbation of pneumonitis with acute hypoxic respiratory failure Likely in the setting of immunosuppression from underlying CMML; chemotherapy reaction less likely WBC count improving, blood cultures negative chest CT: Bilateral multifocal airspace opacities and pleural effusions. Findings may represent sequelae of infection, inflammation, pneumonitis in the acute setting. Recommend follow-up evaluation to resolution with particular attention to the left upper lobe opacities, to exclude underlying neoplasm. Initial repeat CXR with worsening airspace opacities in both lower lung zones and small bilateral pleural effusions CXR today with improved aeration of bilateral lower lungs and tiny bilateral pleural effusions Pulm following-continue antibotics vanco(intiaed on 06/17), zosyn switched to ceftriaxone ,changed Abx to Augmentin Solumedrol stopped, Prednisone 40 Bronch with biopsy canceled due to improved CXR after diuresing HFrEf BNP 894-->1044-->595 today Negative 4.5 L Echo with moderately reduced LV ejection fraction 40-45% with grade 2 diastolic dysfunction Lasix IV X1 in ED to PO today Increase Entresto per card, continue Jardiance and metoprolol. 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 if zosyn is contibuting /changed to ceftriaxone). plan : no sign of bleeding cbc daily, check heme if transfusion is warranted 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 follow bmp., Creatine slightly higher today Nephrology signed off Acute lactic acidosis: Seems lactic acid elevated to dehydration/hyperglycemia , no further trending unless clinical deterioration. The Chronic Thrombocytopenia : moniter cbc closely. Has received platelets with minimal response Platelets dropped to 14,after 1 unit yesterday, transfuse 2 units today AFib : now NSR-hold Eliquis ,continue metoprolol. CAD, hx recent NSTEMI 08/2024, s/p RENE mid RCA:hold Plavix. continue metoprolol and atorvastatin hyperglycemia likley due to steriods use: check poc. Hba1c levels 5.4 diabetic diet SSI Full code - previously was DNR/DNI, discussion with patient and son, patient would like to be full code VTE prophylaxis: mech devices sec to thrombocytopenia Patient with sepsis secondary to acute exacerbation of bronchiectasis with acute hypoxic respiratory failure, thrombocytopenia therefore will require continued inpatient hospitalization .antibiotics. Quality Stroke Does the patient have a stroke diagnosis?: No Reason for No Anti-thrombotic by Day Two: Contraindicated (low PLT count ) VTE Prior VTE?: No VTE Risk Level:: Medical - moderate - high VTE Device Contraindication: N/A - Device Ordered VTE Drug Contraindication: Treatment Not Indicated
[2025-06-22 09:13] LABS: Alanine Aminotransferase 63 U/L (0-40); Albumin Level 3.3 g/dL (3.5-5.0); Alkaline Phosphatase 169 U/L (39-117); Anion Gap 14 (12-20); Aspartate Amino Transferase 31 U/L (5-37); Blood Urea Nitrogen 55 mg/dL (9-16); Calcium 8.3 mg/dL (8.4-10.2); Carbon Dioxide 24 mmol/L (22-29); Chloride 109 mmol/L (96-108); Creatinine Clr Calc Pharmacy 33.9; Estimated Glomerular Filt Rate 43; Potassium 4.1 mmol/L (3.3-5.1); Sodium 143 mmol/L (135-145); Total Protein 6.2 g/dL (6.5-8.0)
[2025-06-22] MEDS: 0.9 % Sodium Chloride Flush 3 ML SYRINGE IVFLUSH ×3 (10:04→20:50)
[2025-06-22 10:46] LABS: B Type Natriuretic Peptide 450 pg/mL (<100)
[2025-06-22 11:13] LABS: Glucose, Whole Blood 213 mg/dL (60-115)
[2025-06-22 16:14] LABS: Glucose, Whole Blood 216 mg/dL (60-115)
[2025-06-22] MEDS: guaiFENesin 200 MG/10 ML 10 ML LIQUID PO (20:47)
[2025-06-22 20:58] LABS: Glucose, Whole Blood 281 mg/dL (60-115)
[2025-06-23] VITALS (9 sets, daily range): BP systolic 124–149; BP diastolic 60–70; PULSE 62–85; RESP 16–18; TEMP 36.1–37.2; O2SAT 94–100
[2025-06-23 07:33] LABS: Hematocrit 26.7 % (42.0-52.0); Hemoglobin 8.3 g/dl (14.0-18.0); Mean Corpuscular HGB Conc 31.1 g/dl (31.0-36.0); Mean Corpuscular Hemoglobin 33.1 pg (27.0-33.0); Mean Corpuscular Volume 106.4 fL (80.0-98.0); NRBC Abs Auto 0.000 X10*3/uL (0.0-0.012); NRBC Pct Auto 0.0 /100WBC (0.0-0.2); Red Blood Count 2.51 X10*6/uL (4.60-5.80); White Blood Count 19.2 X10*3/uL (4.8-10.8)
[2025-06-23 07:37] LABS: Glucose, Whole Blood 203 mg/dL (60-115)
[2025-06-23] MEDS: 0.9 % Sodium Chloride Flush 3 ML SYRINGE IVFLUSH ×2 (07:55→15:55)
[2025-06-23 08:05] LABS: Platelet Count 15 X10*3/uL (160-400)
--- NOTE | 2025-06-23 09:24 | P.PNIM_ITS ---
Subjective Subjective Date of Service: 06/23/25 Interval History: Feeling fine, no sob plat is 15 only after 2 units Review of Systems No edema Physical Exam 2 Exam: Exam: General: AOx3, no acute distress Resp: Bibasilar crackles CVS: S1, S2, RRR; no JVD GI: +BS, NT, no distention Skin: Warm, dry Neuro: Cranial nerves II-XII grossly intact bilaterally. Motor grossly intact bilaterally Extremities: No edema Psych: Appropriate affect Vital Signs: Vital Signs: Last Vital Signs Temp 98.3 F 06/23/25 06:55 Pulse 63 06/23/25 07:55 Resp 18 06/23/25 06:55 BP 149/70 H 06/23/25 07:55 Pulse Ox 100 06/23/25 06:55 O2 Del Method Room Air 06/23/25 06:55 O2 Flow Rate 2 06/22/25 15:10 BMI result Body Mass Index 26.6 Objective Data Active Medications Acetaminophen (Acetaminophen 325 Mg Tablet) 650 mg PO Q6H PRN PRN Reason: Pain, Mild 1-3,fever,headache Last Admin: 06/15/25 02:16 Dose: 650 mg Documented By: MONIK Allopurinol (Allopurinol 100 Mg Tablet) 100 mg PO DAILY [facility] Last Admin: 06/23/25 07:55 Dose: 100 mg Documented By: JANAK Amoxicillin/Clavulanate Potassium (Amoxicillin/Potassium Clav 875 Mg Tablet) 875 mg PO BID [facility] Last Admin: 06/23/25 07:55 Dose: 875 mg Documented By: JANAK Atorvastatin Calcium (Atorvastatin Calcium 40 Mg Tablet) 40 mg PO BEDTIME [facility] Last Admin: 06/22/25 20:48 Dose: 40 mg Documented By: N-DESSK Calcium Carbonate (Calcium Carbonate 750 Mg Tab.Chew) 750 mg PO Q4H PRN PRN Reason: Heartburn Dextrose (Dextrose 50 % 25 Gm/50 Ml Syringe) 25 gm IVPUSH Q15M PRN; Protocol PRN Reason: per Hypoglycemia Standing Ord. Furosemide (Furosemide 20 Mg Tablet) 20 mg PO BID@0900,1800 [facility]; Protocol Last Admin: 06/23/25 07:55 Dose: 20 mg Documented By: JANAK Glucose (Glucose Gel 15 Gm Gel..Gram.) 15 gm PO Q15M PRN; Protocol PRN Reason: per Hypoglycemia Standing Ord. Guaifenesin (Guaifenesin 200 Mg/10 Ml 10 Ml Liquid) 10 ml PO Q4H PRN PRN Reason: Cough Last Admin: 06/22/25 20:47 Dose: 10 ml Documented By: ARIAN Insulin Human Lispro (Insulin Lispro 100 Unit/Ml 3 Ml Vial) 0 unit SUBCUT QIDACHS [facility]; Protocol Last Admin: 06/23/25 07:56 Dose: 2 unit Documented By: JANAK Magnesium Hydroxide (Milk Of Magnesia 30 Ml Oral.Susp) 30 ml PO DAILY PRN PRN Reason: Constipation Melatonin (Melatonin 3 Mg Tablet) 6 mg PO BEDTIME PRN PRN Reason: Insomnia Metoprolol Tartrate (Metoprolol Tartrate 25 Mg Tablet) 25 mg PO BID [facility]; Protocol Last Admin: 06/23/25 07:55 Dose: 25 mg Documented By: JANAK Metoprolol Tartrate (Metoprolol Tartrate 5 Mg/5 Ml Vial) 5 mg IVPUSH Q6H PRN; Protocol PRN Reason: Heart Rate >100 Last Admin: 06/22/25 02:42 Dose: 5 mg Documented By: DAMARIS Ondansetron HCl (Ondansetron Hcl 4 Mg/2 Ml Vial) 4 mg IVPUSH Q8H PRN PRN Reason: Nausea and Vomiting Polyethylene Glycol (Polyethylene Glycol 3350 17 Gm Powd.Pack) 17 gm PO DAILY PRN PRN Reason: Constipation Prednisone (Prednisone 20 Mg Tablet) 40 mg PO DAILY [facility] Last Admin: 06/23/25 07:55 Dose: 40 mg Documented By: JANAK Sacubitril/Valsartan (Sacubitril/Valsartan 49/51 1 Tab Tablet) 1 tab PO BID [facility]; Protocol On Hold: 06/21/25 23:01 Comment: low bp Last Admin: 06/21/25 20:54 Dose: 1 tab Documented By: DAMARIS Senna (Sennosides 8.6 Mg Tablet) 17.2 mg PO BEDTIME [facility] Last Admin: 06/22/25 20:47 Dose: Not Given Documented By: ARIAN Non-Admin Reason: Patient Refused Sodium Bicarbonate (Sodium Bicarbonate 650 Mg Tablet) 650 mg PO BID [facility] Last Admin: 06/23/25 07:55 Dose: 650 mg Documented By: JANAK Sodium Chloride (0.9 % Sodium Chloride Flush 3 Ml Syringe) 3 ml IVFLUSH QSHIFT RASHAD Last Admin: 06/23/25 07:55 Dose: 3 ml Documented By: JANAK Labs 06/23/25 07:02 06/22/25 08:24 Labs: Laboratory Results - last 24 hr 06/21/25 06/22/25 06/22/25 15:31 08:24 11:04 MCV MCH MCHC RDW Plt Count MPV Immature Gran % (Auto) 1.4 H Neut % (Auto) 77.6 H Lymph % (Auto) 9.3 L Bond % (Auto) 11.0 Eos % (Auto) 0.6 Baso % (Auto) 0.1 Lymph # (Auto) 1.6 Bond # (Auto) 1.9 H Eos # (Auto) 0.1 Baso # (Auto) 0.0 Abs Immat Gran (auto) 0.25 H Absolute Neuts (auto) 13.4 H Absolute Nucleated RBC 0.000 Nucleated RBC % (auto) 0.0 Smear Tech's Comments VERIFIED POC Glucose 213 H B-Natriuretic Peptide 450 H Blood Type O Positive Antibody Screen NEGATIVE 06/22/25 06/22/25 06/23/25 16:06 20:49 07:02 MCV 106.4 H MCH 33.1 H MCHC 31.1 RDW 20.7 H Plt Count 15 L* MPV 14.1 H Immature Gran % (Auto) Neut % (Auto) Lymph % (Auto) Bond % (Auto) Eos % (Auto) Baso % (Auto) Lymph # (Auto) Bond # (Auto) Eos # (Auto) Baso # (Auto) Abs Immat Gran (auto) Absolute Neuts (auto) Absolute Nucleated RBC 0.000 Nucleated RBC % (auto) 0.0 Smear Tech's Comments POC Glucose 216 H 281 H B-Natriuretic Peptide Blood Type Antibody Screen 06/23/25 07:24 MCV MCH MCHC RDW Plt Count MPV Immature Gran % (Auto) Neut % (Auto) Lymph % (Auto) Bond % (Auto) Eos % (Auto) Baso % (Auto) Lymph # (Auto) Bond # (Auto) Eos # (Auto) Baso # (Auto) Abs Immat Gran (auto) Absolute Neuts (auto) Absolute Nucleated RBC Nucleated RBC % (auto) Smear Tech's Comments POC Glucose 203 H B-Natriuretic Peptide Blood Type Antibody Screen Microbiology Microbiology Results: Microbiology 06/14/25 22:48 Blood Culture - Final Blood - Venous No growth after 5 days. 06/14/25 22:48 Blood Culture - Final Blood - Venous No growth after 5 days. Assessment and Plan (1) Thrombocytopenia: Status: Acute (2) Heart failure with reduced ejection fraction: Status: Acute Plan 79-year-old male with a past medical history significant for AFib on Eliquis, CAD, NSTEMI 09/12 s/p RENE mid RCA on Plavix, prediabtes , and bronchiectasis secondary to asbestosis, who presented to the ED today due to shortness of breath and weakness for the past few days. Sepsis secondary to acute exacerbation of pneumonitis with acute hypoxic respiratory failure Likely in the setting of immunosuppression from underlying CMML; chemotherapy reaction less likely WBC count improving, blood cultures negative chest CT: Bilateral multifocal airspace opacities and pleural effusions. Findings may represent sequelae of infection, inflammation, pneumonitis in the acute setting. Recommend follow-up evaluation to resolution with particular attention to the left upper lobe opacities, to exclude underlying neoplasm. Initial repeat CXR with worsening airspace opacities in both lower lung zones and small bilateral pleural effusions CXR today with improved aeration of bilateral lower lungs and tiny bilateral pleural effusions Pulm following-continue antibotics vanco(intiaed on 06/17), zosyn switched to ceftriaxone ,changed Abx to Augmentin Prednisone 40 Bronch with biopsy canceled due to improved CXR after diuresing HFrEf BNP 894-->1044-->595 today Negative 4.5 L Echo with moderately reduced LV ejection fraction 40-45% with grade 2 diastolic dysfunction Lasix IV X1 in ED to PO today Increase Entresto per card, continue Jardiance and metoprolol. 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 if zosyn is contibuting /changed to ceftriaxone). plan : no sign of bleeding cbc daily, check heme if transfusion is warranted 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 follow bmp., Creatine slightly higher today Nephrology signed off Acute lactic acidosis: Seems lactic acid elevated to dehydration/hyperglycemia , no further trending unless clinical deterioration. The Chronic Thrombocytopenia : moniter cbc closely. Has received platelets with minimal response Platelets dropped to 14,after 1 unit yesterday, transfuse 2 units today AFib : now NSR-hold Eliquis ,continue metoprolol. CAD, hx recent NSTEMI 08/2024, s/p RENE mid RCA:hold Plavix. continue metoprolol and atorvastatin hyperglycemia likley due to steriods use: check poc. Hba1c levels 5.4 diabetic diet SSI Full code - previously was DNR/DNI, discussion with patient and son, patient would like to be full code VTE prophylaxis: mech devices sec to thrombocytopenia Patient with sepsis secondary to acute exacerbation of bronchiectasis with acute hypoxic respiratory failure, thrombocytopenia therefore will require continued inpatient hospitalization .antibiotics. Quality Stroke Does the patient have a stroke diagnosis?: No Reason for No Anti-thrombotic by Day Two: Contraindicated (low PLT count ) VTE Prior VTE?: No VTE Risk Level:: Medical - moderate - high VTE Device Contraindication: N/A - Device Ordered VTE Drug Contraindication: Treatment Not Indicated
--- NOTE | 2025-06-23 10:08 | P.PNHO-ONC_ITS ---
Medical Summary - Medical Summary Date of Service: 06/23/25 Chief complaint: None reported Primary Care Provider: Kobe Christian MD Medical Summary: DIAGNOSIS: CMML. [employer] Utilized?: No - Frisian Speaking Interval History Interval history: Patient is feeling lot better. He is no longer on oxygen. He denies any skin bruising but he reports chronic history of nosebleeds especially when he blows his nose. No hematochezia or melena. No fever or chills. No chest pain or shortness of breath at this time. 2 Review of Systems - Neurologic Reports no additional neurologic complaints, Denies memory loss, Denies seizure- like activity, Reports weakness PMFSH Medical History: Medical History (Last Reviewed 06/23/25 @ 12:12 by Cherrie Acevedo, PT) Asbestosis Atrial fibrillation Atrial fibrillation with RVR Chronic cough CKD stage 3 secondary to diabetes COPD exacerbation Diabetes Heart failure with reduced ejection fraction MDS/MPN (myelodysplastic/myeloproliferative neoplasms) Prediabetes Renal cyst Sacrococcygeal pilonidal cyst Sciatica Thrombocytopenia Functional capacity: uses cane/walker Surgical History: Surgical History (Last Reviewed 06/23/25 @ 12:12 by Cherrie Acevedo, PT) History of colonoscopy Onset Date: ~10/27/16 Hx of cardiac cath S/P cardiac cath Stented coronary artery Social History: Social History (Last Reviewed 06/15/25 @ 01:23 by Oma Vieyra [facility]) Living Situation History: Household Members: Unknown / Unable to asses Housing: Unknown / Unable to asses Do you presently have visiting nurse or other home services: No Alcohol History Details: 1. How often do you have a drink containing alcohol?: a. Never AUDIT-C Alcohol total score: 0 Currently Displaying Signs/Symptoms of Alcohol Withdrawal: No Tobacco History: Patient Tobacco Use Status: Former Tobacco user Smoked in Last 30 Days: No Patient Interested in Nicotine Replacement: No Patient Given Instructions on How to Stop Smoking: No Second Hand Smoke Exposure: No Substance Use History: Use of substances other than those prescribed or required for medical reasons : No Currently Displaying Signs/Symptoms of Drug Intoxication Withdrawal: No Domestic Abuse History: Have you been hit, kicked, punched, or otherwise hurt by someone within the past year? If so, by whom?: No Do you feel safe in your current relationship?: No Current Relationship Is there a partner from a previous relationship who is making you feel unsafe now?: No Are you made to feel afraid or neglected: No Advance Directives: Advance Directives: Yes Advance Directives on File: Yes Advance Directives Date on File: 09/13/24 Homicidal Assessment: Do you have a plan to hurt others: No Plan Nutrition Assessment: Recently lost weight without trying: No Nutrition Risks: On aspiration precautions Poor oral hygiene: No Occupation Assessmet: service: No Current occupational status: retired Current occupational status: disabled - Travel History Ebola Risk: Travel/Contact With Anyone From Affected Area/s: No Has Patient Experienced Ebola Symptoms: No Home Medications and Allergies Current Medications: Current Medications Acetaminophen (Acetaminophen 325 Mg Tablet) 650 mg PO Q6H PRN PRN Reason: Pain, Mild 1-3,fever,headache Last Admin: 06/15/25 02:16 Dose: 650 mg Allopurinol (Allopurinol 100 Mg Tablet) 100 mg PO DAILY [facility] Last Admin: 06/23/25 07:55 Dose: 100 mg Amoxicillin/Clavulanate Potassium (Amoxicillin/Potassium Clav 875 Mg Tablet) 875 mg PO BID [facility] Last Admin: 06/23/25 07:55 Dose: 875 mg Atorvastatin Calcium (Atorvastatin Calcium 40 Mg Tablet) 40 mg PO BEDTIME [facility] Last Admin: 06/22/25 20:48 Dose: 40 mg Calcium Carbonate (Calcium Carbonate 750 Mg Tab.Chew) 750 mg PO Q4H PRN PRN Reason: Heartburn Dextrose (Dextrose 50 % 25 Gm/50 Ml Syringe) 25 gm IVPUSH Q15M PRN; Protocol PRN Reason: per Hypoglycemia Standing Ord. Furosemide (Furosemide 20 Mg Tablet) 20 mg PO BID@0900,1800 [facility]; Protocol Last Admin: 06/23/25 07:55 Dose: 20 mg Glucose (Glucose Gel 15 Gm Gel..Gram.) 15 gm PO Q15M PRN; Protocol PRN Reason: per Hypoglycemia Standing Ord. Guaifenesin (Guaifenesin 200 Mg/10 Ml 10 Ml Liquid) 10 ml PO Q4H PRN PRN Reason: Cough Last Admin: 06/22/25 20:47 Dose: 10 ml Insulin Human Lispro (Insulin Lispro 100 Unit/Ml 3 Ml Vial) 0 unit SUBCUT QIDAS [facility]; Protocol Last Admin: 06/23/25 07:56 Dose: 2 unit Magnesium Hydroxide (Milk Of Magnesia 30 Ml Oral.Susp) 30 ml PO DAILY PRN PRN Reason: Constipation Melatonin (Melatonin 3 Mg Tablet) 6 mg PO BEDTIME PRN PRN Reason: Insomnia Metoprolol Tartrate (Metoprolol Tartrate 25 Mg Tablet) 25 mg PO BID [facility]; Protocol Last Admin: 06/23/25 07:55 Dose: 25 mg Metoprolol Tartrate (Metoprolol Tartrate 5 Mg/5 Ml Vial) 5 mg IVPUSH Q6H PRN; Protocol PRN Reason: Heart Rate >100 Last Admin: 06/22/25 02:42 Dose: 5 mg Ondansetron HCl (Ondansetron Hcl 4 Mg/2 Ml Vial) 4 mg IVPUSH Q8H PRN PRN Reason: Nausea and Vomiting Polyethylene Glycol (Polyethylene Glycol 3350 17 Gm Powd.Pack) 17 gm PO DAILY PRN PRN Reason: Constipation Prednisone (Prednisone 20 Mg Tablet) 40 mg PO DAILY [facility] Last Admin: 06/23/25 07:55 Dose: 40 mg Sacubitril/Valsartan (Sacubitril/Valsartan 49/51 1 Tab Tablet) 1 tab PO BID [facility]; Protocol On Hold: 06/21/25 23:01 Comment: low bp Last Admin: 06/21/25 20:54 Dose: 1 tab Senna (Sennosides 8.6 Mg Tablet) 17.2 mg PO BEDTIME [facility] Last Admin: 06/22/25 20:47 Dose: Not Given Sodium Bicarbonate (Sodium Bicarbonate 650 Mg Tablet) 650 mg PO BID [facility] Last Admin: 06/23/25 07:55 Dose: 650 mg Sodium Chloride (0.9 % Sodium Chloride Flush 3 Ml Syringe) [facility] Last Admin: 06/23/25 07:55 Dose: 3 ml Home Medications ?Medication ?Instructions ?Recorded ?Confirmed ?Type fluticasone furoate 200 1 inh inhalation DAILY PRN 06/15/2505/21 History mcg/actuation blister powder for Shortness Of Breath Or Wheezing inhalation (Arnuity Ellipta) tramadol 50 mg tablet 50 mg PO TID PRN moderate pain 06/15/25 06/15/25 History Allergies Allergy/AdvReac Type Severity Reaction Status Date / Time No Known Allergies Allergy Verified 06/14/25 22:39 Exam Vital signs: Vital Signs Temp 98.3 F 06/23/25 06:55 Pulse 63 06/23/25 07:55 Resp 18 06/23/25 06:55 BP 149/70 H 06/23/25 07:55 Pulse Ox 100 06/23/25 06:55 O2 Del Method Room Air 06/23/25 06:55 O2 Flow Rate 2 06/22/25 15:10 Intake & Output 06/22/25 06/23/25 06/23/25 18:59 06:59 18:59 Intake Total 1396 / 1396 Output Total 460 / 960 500 / 960 Balance 936 / 436 -500 / 436 Urine Output (Average ml/kg/hr) 0.50 0.54 0.54 Intake: Intake, Oral Amount 880 / 880 Intake (Blood Product) Amount 516 / 516 Plt Aph Pas Pathreduced(E8341) 252 / 252 Unit [id number] Plt Aph Pas Pathreduced(E8342) 264 / 264 Unit [id number] Output: Output, Urine Amount 460 / 960 500 / 960 Other: Meal Refused No NPO No Breakfast % Eaten 100% Lunch % Eaten 100% Dinner % Eaten 100% Eating (Feeding) Ability Set Up only Number of Bowel Movements 1 Urine Purewick purewick Urine Color Yellow Last Bowel Movement 06/22/25 06/22/25 06/23/25 Stool Bedside Commode Bedside Commode Stool Amount Moderate Moderate Stool Color Brown Stool Consistency Semi Formed Weight 77.1 kg BMI result Body Mass Index 26.6 - Constitutional Present: mild distress - Routine HEENT Exam Head: Present: normal inspection, normocephalic - Routine Respiratory Exam Present: rales. Absent: accessory muscle use, wheezes - Routine Cardiovascular Exam Cardiovascular: Present: S1, S2 Data - Labs CBC & Chem 7: 06/23/25 07:02 06/22/25 08:24 - Imaging Radiologist's impression: ITS Impressions Chest X-Ray 06/18/25 07:10 IMPRESSION: Worsening airspace opacities in both lower lung zones with improvement in the upper lung zones. Small bilateral pleural effusions. Electronically signed by: Ezio Alexander MD 06/18/2025 07:58 AM EDT RP Chest X-Ray 06/19/25 07:20 IMPRESSION: Improved aeration of the bilateral lower lung zones. Tiny bilateral pleural effusions. Electronically signed by: Ezio Alexander MD 06/19/2025 07:37 AM EDT Assessment and Plan Patient Active problem list reviewed?: Yes (1) CMML (chronic myelomonocytic leukemia) Status: Acute Assessment and plan: This is a 80 year old male with CMML status post 1st cycle 5 azacitidine who has been admitted for hypoxic respiratory failure. CT Chest from 06/15: Bilateral multifocal airspace opacities and pleural effusions. Findings may represent sequelae of infection, inflammation, pneumonitis in the acute setting. Recommend follow-up evaluation to resolution with particular attention to the left upper lobe opacities, to exclude underlying neoplasm. He was empirically treated with broad-spectrum antibiotics, IV Solu-Medrol as well as diuresed for mild CHF. His oxygenation has improved and he is no longer oxygen dependent. Chest x-ray performed 06/22/2025 shows resolution of pneumonia. He may have had acute pneumonitis like reaction to chemotherapy, 5 azacitidine. He responded to steroids. 2. Persistent thrombocytopenia secondary to underlying bone marrow malignancy. He also has splenomegaly which could be contributing. He has not responded to multiple units of platelet transfusion. No evidence of DIC or myelophthisic process. Hemoglobin is stable, no signs of bleeding. He was asked to discontinue antiplatelet agent and Eliquis. I discussed the above with patient as well as his son. Overall prognosis is guarded. He will need to follow up with Hematology upon discharge. - Time Spent With Patient Time Spent with Patient (in minutes): 20 Additional Coding: - Additional E/M codes Complex E/M visit Add On: CPT G2211
--- NOTE | 2025-06-23 10:56 | P.DS_ITS ---
DS: Providers Provider Date of Service: 06/23/25 Date of admission: 06/15/25 00:04 Date of discharge: 06/23/25 Primary care physician: Kobe Christian MD Consults: 06/15/25 01:36 Consult to Pulmonology Routine Consulting Provider: [facility] Reason for consultation: acute hypoxic respiratory failure, new to chemo for CMML, MDSDUo nebs prn 06/15/25 01:50 Consult to Case Management Routine Comment: son req review for help for pt at home 06/15/25 07:39 Consult to Hematology / Oncology Routine Consulting Provider: [facility] Oncology/Hematology Reason for consultation: cmml ,thrombocytopenia Has provider been notified: No 06/15/25 07:40 Consult to Nephrology Routine Consulting Provider: [facility] Reason for consultation: akion ckd , AGMA Has provider been notified: No 06/17/25 06:18 Consult to Hematology / Oncology Routine Consulting Provider: [facility] Oncology/Hematology Reason for consultation: cmml 06/19/25 07:52 Consult to Cardiology Routine Consulting Provider: [facility] Reason for consultation: CHF DS: Diagnosis Discharge Diagnosis (1) Thrombocytopenia: Status: Acute (2) Heart failure with reduced ejection fraction: Status: Acute DS: Summary Hospital Course Hospital Course: Admission HPI Attending physician on admission: Nia Kuo Chief Complaint: Weakness, SOB Patient is an 80-year-old male with past medical history hypertension, hyperlipidemia, gout, atrial fibrillation on Eliquis, prediabetes, chronic kidney disease stage 3, sciatica, asbestosis, COPD, prostate cancer with prostatectomy, non STEMI, CAD,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 Per pt's son at bedside, pt was not altered or lethargic. EMS arrived and noted patient's pulse ox was 65% on room air,. Patient received a non-rebreather and sats improved to the mid 90s., within the last week patient did start the new chemotherapeutic agent within the last week. Patient has been off his Eliquis due to low platelet count. Pt does meet criteria for sepsis with noted hypoxia, fever 103.8, and leukocytosis (aware of MDS cancer DX). Chest x-ray done in the ED noted multi focal bilateral nonspecific consolidation highly suspicious for pneumonia. Aspiration also a possibility. Reviewed this with patient and son and they denied that patient is having issues with eating or taking medications or drinking fluids. Patient has a nonproductive cough. BNP also elevated, 894 with known hx of HFrEF 45-50%. Last complete echo 09/10/24. Pt currently in NSR, no complaints of chest pain. Temp max 103.8. BC X2 drawn. No tachycardia or hypotension. Patient received 2 g of cefepime IV. Patient also started on methylprednisolone 125 mg IV x1. Patient also received 2 g magnesium IV x1. Patient currently on 5 L nasal cannula, alert and orientated but pale in presentation. H&H 9.3 and 29.1. Platelets 24,000. White count 35. VBG , 7.38 , 28, 70 17 on oxygen. Patient does not use oxygen at home currently. Patient was not happy about being admitted to the hospital. Patient's son who is also the healthcare proxy is at his side. Reassurance provided. Patient is agreeable to staying. Son is also caring for patient's spouse who has Alzheimer's disease and is part of the pace program. Son is open to talking with case management to plan for current and future needs as son will be returning to work as a teacher once the summer ends. hospital course: 79-year-old male with a past medical history significant for AFib on Eliquis, CAD, NSTEMI 09/12 s/p RENE mid RCA on Plavix, prediabtes , and bronchiectasis secondary to asbestosis, who presented to the ED today due to shortness of breath and weakness for the past few days and admitted and treated for sepsis, pneumonitis, acute hypoxic respriatory failure,; Heart failure, TALA,and t hrmbocytepenia. Probelms Sepsis secondary to acute exacerbation of pneumonitis with acute hypoxic respiratory failure in the setting of immunosuppression from underlying CMML; chemotherapy reaction. WBC were as high as 54 but has steadily come down, presently 19K. chest CT: Bilateral multifocal airspace opacities and pleural effusions. Findings may represent sequelae of infection, inflammation, pneumonitis in the acute setting. Recommend follow-up evaluation to resolution with particular attention to the left upper lobe opacities, to exclude underlying neoplasm. Initial repeat CXR with worsening airspace opacities in both lower lung zones and small bilateral pleural effusions Last chest xray with improved aeration of bilateral lower lungs and tiny bilateral pleural effusions Was seen by pulmonary, was treated with Zosyn and vanco and later chaged to Augmentina nd will treat for total of 10 days. He was also on IV solumedrol now changed to Prednisone and will sudhakar by 5 mg weekly per oncolgy recommendation. HFrEf BNP 894-->1044-->595 today Negative 4 L Echo with moderately reduced LV ejection fraction 40-45% with grade 2 diastolic dysfunction Initially treated with IV Lasix and no on PO To continue Entresto, Jardiance and metoprolol. 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 on new chemotherapeutic agent (vidaza azacitidine) started 06/06/2025 Patient no longer on Hydrea Leukocytosis flactuating, no bandemia (previous WBC 60) Anemia stable, no indication for transfusion Thrombocytopenia - eliquis remains on hold due to low platlets Was followed by oncology and transfused multiple units of plat and yet Plat count remains low presently 15 and will have outaptient follow up with hematology/oncology 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 follow bmp., Creatine is within his baseline Acute lactic acidosis: not due to sepsis, likely from combination of acute illness, hypoxia AFib : now NSR-hold Eliquis ,continue metoprolol. CAD, hx recent NSTEMI 08/2024, s/p RENE mid RCA:hold Plavix. continue metoprolol and atorvastatin hyperglycemia likley due to steriods use: check poc. Hba1c levels 5.4 diabetic diet SSI PT is recommending home with services Time Attestation Discharge Coordination Time (in mins): 60 Quality: Safe Use of Opioids Does Pt have an Active Cancer Diagnosis on the Problem List?: No Quality: Stroke Does the patient have a stroke diagnosis?: No Physical Exam Vital Signs: Vital Signs: Last Vital Signs Temp 98.3 F 06/23/25 06:55 Pulse 63 06/23/25 07:55 Resp 18 06/23/25 06:55 BP 149/70 H 06/23/25 07:55 Pulse Ox 100 06/23/25 06:55 O2 Del Method Room Air 06/23/25 06:55 O2 Flow Rate 2 06/22/25 15:10 BMI result Body Mass Index 26.6 DS: Data Data Completed and Pending Labs on day of discharge: Laboratory Results - last 24 hr 06/21/25 06/22/25 06/22/25 15:31 11:04 16:06 WBC RBC Hgb Hct MCV MCH MCHC RDW Plt Count MPV Absolute Nucleated RBC Nucleated RBC % (auto) POC Glucose 213 H 216 H Blood Type O Positive Antibody Screen NEGATIVE 06/22/25 06/23/25 06/23/25 20:49 07:02 07:24 WBC 19.2 H RBC 2.51 L Hgb 8.3 L Hct 26.7 L MCV 106.4 H MCH 33.1 H MCHC 31.1 RDW 20.7 H Plt Count 15 L* MPV 14.1 H Absolute Nucleated RBC 0.000 Nucleated RBC % (auto) 0.0 POC Glucose 281 H 203 H Blood Type Antibody Screen Discharge Plan Discharge Anticipated Discharge Date/Time: 06/23/25 14:40 Patient Disposition: Home Health Service Discharge Diagnosis: Acute hypoxic resp failure, pneumonia, chf, thrombocytopenia Referrals: Kobe Christian MD [Primary Care Provider, Internal Medicine] - 1 Week Discharge Medications: New furosemide 20 mg Tablet 20 mg PO BID@0900,1800 Qty: 180 0RF Protocol: Hold for SBP< HOLD for SBP < : 90 Entresto 49-51 mg Tablet 1 tab PO BID Qty: 90 0RF Protocol: Hold for SBP< HOLD for SBP < : 90 amoxicillin-pot clavulanate 875-125 mg Tablet 1 tab PO BID Qty: 4 0RF prednisone 5 mg tablet See Rx Instructions .Route .COMPLEX Qty: 252 0RF Rx Instructions: start taking 8 tablets daily, and reduce by 1 tablet every 7 days until completion Continued atorvastatin 40 mg tablet 40 mg PO BEDTIME Qty: 90 3RF metoprolol tartrate 25 mg tablet 25 mg PO BID Qty: 180 3RF Protocol: Hold for SBP/HR < HOLD for SBP < : 90 HOLD for HR < : 60 allopurinol 100 mg Tablet 100 mg PO DAILY Qty: 30 1RF ondansetron 8 mg Tablet,Disintegrating 8 mg PO Q8H PRN (Reason: Nausea And Vomiting) Qty: 30 3RF tramadol 50 mg tablet 50 mg PO TID PRN (Reason: moderate pain) Arnuity Ellipta 200 mcg/actuation blister with device 1 inh inhalation DAILY PRN (Reason: Shortness Of Breath Or Wheezing) Jardiance 10 mg tablet 10 mg PO DAILY Qty: 30 5RF Discharge Orders: Discharge Order (Routine); Ordered 06/23/25 Ordered By: Keagan Perez Diet: Advance to usual diet Activity on Discharge: As tolerated Stand Alone Forms: Patient Portal Discharge page Print Language: Greek Care Plan Goals: recovery from acute hospitalization for pneumonitisi, chf, low platlets Health Concerns: CMML, pneumonitis, CHF, Plan of Treatment: Take Augmentin twice daily for 2 more day take Prednisone as directed starting 8 tabs of 5 mg and reduce by 1 tab every 7 days. Follow up with Dr. Heck you will need labs work done on outpatient basis Assessment: See above
[2025-06-23 11:42] LABS: Glucose, Whole Blood 271 mg/dL (60-115)
[2025-06-23 12:44] LABS: Fibrinogen 426 MG/DL (259-690); INTERNATIONAL NORM RATIO 1.2 (0.9-1.1); Prothrombin Time 13.7 SEC (10.9-12.4)
[2025-06-23 12:46] LABS: Partial Thromboplastin Time 29.9 SEC (26.7-34.1)
--- NOTE | 2025-06-23 14:49 | W.MHC.F2F ---
Service Date Service Date: 06/23/25 Encounter Date of encounter: 06/23/25 Reasons for Services Signs and symptoms assessed: Weakness from hospitalization, CMML Reason for [facility] [facility]: medication management and teach disease management Reason for physical therapy: therapeutic exercises, gait/transfer training and energy conservation Homebound: Leaving the home is medically contraindicated at this time without the asist of a device and/or another person due th the listed conditions above and below. Reason homebound: fall risk related to blood pressure changes and weakness related to hospital stay Homebound supporting statement: Homebound due to weakness from hospitalization, underlying CMML, CHF causing shortness of breath with minimal effort and threfore needs the assistance of another person Certification: Based on the above findings, I certify that this patient is confined to the home and needs intermittent [facility] care, physical therapy and/or speech therapy, or continues to need occupational therapy. The patient is under my care, and I have initiated the establishment of the plan of care. The patient will be followed by a physician who will periodically review the plan of care. Time Spent With Patient Time: Total time managing care of this patient today ____ minutes.
[2025-06-23 15:22] LABS: Glucose, Whole Blood 368 mg/dL (60-115)
--- NOTE | 2025-06-23 16:14 | MHC.CM.PN ---
IMM 06/23/25, PT WAS ANTIC DC TODAY HOME W/NEW COMFORT PLUS FOR SN/PT HOWEVER HOSPITALIST WILL HOLD PT OVERNIGHT, CM WILL CONT TO FOLLOW.
[2025-06-23 20:57] LABS: Glucose, Whole Blood 287 mg/dL (60-115)
[2025-06-24] VITALS (17 sets, daily range): BP systolic 117–162; BP diastolic 56–72; PULSE 53–88; RESP 16–20; TEMP 36.1–36.9; O2SAT 79–99
[2025-06-24 07:27] LABS: Mean Corpuscular Volume 106.3 fL (80.0-98.0); NRBC Abs Auto 0.000 X10*3/uL (0.0-0.012); NRBC Pct Auto 0.0 /100WBC (0.0-0.2)
[2025-06-24 07:27] LABS: Glucose, Whole Blood 190 mg/dL (60-115)
[2025-06-24 07:29] LABS: Hematocrit 23.7 % (42.0-52.0); Hemoglobin 7.8 g/dl (14.0-18.0); Mean Corpuscular HGB Conc 32.9 g/dl (31.0-36.0); Mean Corpuscular Hemoglobin 35.0 pg (27.0-33.0); Red Blood Count 2.23 X10*6/uL (4.60-5.80); White Blood Count 18.0 X10*3/uL (4.8-10.8)
[2025-06-24] MEDS: 0.9 % Sodium Chloride Flush 3 ML SYRINGE IVFLUSH ×3 (07:34→21:38)
[2025-06-24 07:40] LABS: PLT ABN DIST 1; Platelet Count 10 X10*3/uL (160-400)
--- NOTE | 2025-06-24 07:51 | MHC.CM.PN ---
Addendum entered by Dahlia Martinez 06/24/25 10:26: Today's dc has been cancelled; Patient needs a blood transfusion. [facility] has been notified of the change. Original Note: Patient has been medically cleared for dc to home today, with services; [facility] has been informed of today's dc. Last IMM was addressed yesterday.
--- NOTE | 2025-06-24 09:16 | HO.PM.IMPN ---
Subjective Subjective Date of Service: 06/24/25 Interval History: Feeling fine, no sob Plat down to 10, no bleeding Review of Systems No edema Physical Exam Vital Signs: Vital Signs: Last Vital Signs Temp 98.4 F 06/24/25 07:18 Pulse 57 06/24/25 07:33 Resp 16 06/24/25 07:18 BP 138/64 06/24/25 07:34 Pulse Ox 95 06/24/25 07:18 O2 Del Method Room Air 06/24/25 07:18 O2 Flow Rate 2 06/22/25 15:10 BMI result Body Mass Index 26.6 Objective Data Active Medications Acetaminophen (Acetaminophen 325 Mg Tablet) 650 mg PO Q6H PRN PRN Reason: Pain, Mild 1-3,fever,headache Last Admin: 06/15/25 02:16 Dose: 650 mg Documented By: MONIK Allopurinol (Allopurinol 100 Mg Tablet) 100 mg PO DAILY [facility] Last Admin: 06/24/25 07:34 Dose: 100 mg Documented By: JANAK Amoxicillin/Clavulanate Potassium (Amoxicillin/Potassium Clav 875 Mg Tablet) 875 mg PO BID [facility] Last Admin: 06/24/25 07:33 Dose: 875 mg Documented By: JANAK Atorvastatin Calcium (Atorvastatin Calcium 40 Mg Tablet) 40 mg PO BEDTIME [facility] Last Admin: 06/23/25 22:00 Dose: 40 mg Documented By: JUDITH Calcium Carbonate (Calcium Carbonate 750 Mg Tab.Chew) 750 mg PO Q4H PRN PRN Reason: Heartburn Dextrose (Dextrose 50 % 25 Gm/50 Ml Syringe) 25 gm IVPUSH Q15M PRN; Protocol PRN Reason: per Hypoglycemia Standing Ord. Furosemide (Furosemide 20 Mg Tablet) 20 mg PO BID@0900,1800 [facility]; Protocol Last Admin: 06/24/25 07:34 Dose: 20 mg Documented By: JANAK Glucose (Glucose Gel 15 Gm Gel..Gram.) 15 gm PO Q15M PRN; Protocol PRN Reason: per Hypoglycemia Standing Ord. Guaifenesin (Guaifenesin 200 Mg/10 Ml 10 Ml Liquid) 10 ml PO Q4H PRN PRN Reason: Cough Last Admin: 06/22/25 20:47 Dose: 10 ml Documented By: MARY-DESSK Insulin Human Lispro (Insulin Lispro 100 Unit/Ml 3 Ml Vial) 0 unit SUBCUT QIDACHS [facility]; Protocol Last Admin: 06/24/25 07:30 Dose: Not Given Documented By: JANAK Non-Admin Reason: No Insulin Coverage Magnesium Hydroxide (Milk Of Magnesia 30 Ml Oral.Susp) 30 ml PO DAILY PRN PRN Reason: Constipation Melatonin (Melatonin 3 Mg Tablet) 6 mg PO BEDTIME PRN PRN Reason: Insomnia Metoprolol Tartrate (Metoprolol Tartrate 25 Mg Tablet) 25 mg PO BID [facility]; Protocol Last Admin: 06/24/25 07:33 Dose: 25 mg Documented By: JANAK Metoprolol Tartrate (Metoprolol Tartrate 5 Mg/5 Ml Vial) 5 mg IVPUSH Q6H PRN; Protocol PRN Reason: Heart Rate >100 Last Admin: 06/22/25 02:42 Dose: 5 mg Documented By: DAMARIS Ondansetron HCl (Ondansetron Hcl 4 Mg/2 Ml Vial) 4 mg IVPUSH Q8H PRN PRN Reason: Nausea and Vomiting Polyethylene Glycol (Polyethylene Glycol 3350 17 Gm Powd.Pack) 17 gm PO DAILY PRN PRN Reason: Constipation Prednisone (Prednisone 20 Mg Tablet) 60 mg PO DAILY [facility] Last Admin: 06/24/25 07:33 Dose: 60 mg Documented By: JANAK Sacubitril/Valsartan (Sacubitril/Valsartan 49/51 1 Tab Tablet) 1 tab PO BID [facility]; Protocol On Hold: 06/21/25 23:01 Comment: low bp Last Admin: 06/21/25 20:54 Dose: 1 tab Documented By: DAMARIS Senna (Sennosides 8.6 Mg Tablet) 17.2 mg PO BEDTIME [facility] Last Admin: 06/23/25 22:01 Dose: Not Given Documented By: JUDITH Non-Admin Reason: Patient Refused Sodium Bicarbonate (Sodium Bicarbonate 650 Mg Tablet) 650 mg PO BID [facility] Last Admin: 06/24/25 07:34 Dose: 650 mg Documented By: JANAK Sodium Chloride (0.9 % Sodium Chloride Flush 3 Ml Syringe) 3 ml IVFLUSH QSHIFT [facility] Last Admin: 06/24/25 07:34 Dose: 3 ml Documented By: JANAK Labs 06/24/25 06:56 06/22/25 08:24 Labs: Laboratory Results - last 24 hr 06/23/25 06/23/25 06/23/25 11:34 12:21 15:13 MCV MCH MCHC RDW Plt Count MPV Absolute Nucleated RBC Nucleated RBC % (auto) PT 13.7 H INR 1.2 H APTT 29.9 Fibrinogen 426 POC Glucose 271 H 368 H* 06/23/25 06/24/25 06/24/25 20:52 06:56 07:23 MCV 106.3 H MCH 35.0 H MCHC 32.9 RDW 21.2 H Plt Count 10 L* MPV Not Reportable Absolute Nucleated RBC 0.000 Nucleated RBC % (auto) 0.0 PT INR APTT Fibrinogen POC Glucose 287 H 190 H Assessment and Plan (1) Thrombocytopenia: Status: Acute (2) Heart failure with reduced ejection fraction: Status: Acute Plan Sepsis secondary to acute exacerbation of pneumonitis with acute hypoxic respiratory failure in the setting of immunosuppression from underlying CMML; chemotherapy reaction. WBC were as high as 54 but has steadily come down, presently 19K. chest CT: Bilateral multifocal airspace opacities and pleural effusions. Findings may represent sequelae of infection, inflammation, pneumonitis in the acute setting. Recommend follow-up evaluation to resolution with particular attention to the left upper lobe opacities, to exclude underlying neoplasm. Initial repeat CXR with worsening airspace opacities in both lower lung zones and small bilateral pleural effusions Last chest xray with improved aeration of bilateral lower lungs and tiny bilateral pleural effusions Was seen by pulmonary, was treated with Zosyn and vanco and later chaged to Augmentina nd will treat for total of 10 days. He was also on IV solumedrol now changed to Prednisone and will sudhakar by 5 mg weekly per oncolgy recommendation. HFrEf BNP 894-->1044-->595 Negative 4 L Echo with moderately reduced LV ejection fraction 40-45% with grade 2 diastolic dysfunction Initially treated with IV Lasix and now on PO lasix 20 bid To continue Entresto, Jardiance and metoprolol. 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 on new chemotherapeutic agent (vidaza azacitidine) started 06/06/2025 Patient no longer on Hydrea Leukocytosis flactuating, no bandemia (previous WBC 60) Anemia stable, no indication for transfusion Thrombocytopenia - eliquis remains on hold due to low platlets Was followed by oncology and transfused multiple units of plat and yet Plat count remains low presently 10 and will have outpatient follow up with hematology/oncology TALA on CKD3 avoid nephrotoxins follow bmp., Creatine is within his baseline Acute lactic acidosis: not due to sepsis, likely from combination of acute illness, hypoxia AFib : now NSR-hold Eliquis ,continue metoprolol. CAD, hx recent NSTEMI 08/2024, s/p RENE mid RCA:hold Plavix. continue metoprolol and atorvastatin hyperglycemia likley due to steriods use: check poc. Hba1c levels 5.4 diabetic diet [facility] PT is recommending home with services Quality Stroke Does the patient have a stroke diagnosis?: No Reason for No Anti-thrombotic by Day Two: Contraindicated (low PLT count ) VTE Prior VTE?: No VTE Risk Level:: Medical - moderate - high VTE Device Contraindication: N/A - Device Ordered VTE Drug Contraindication: Treatment Not Indicated
[2025-06-24 10:06] LABS: Blood Urea Nitrogen 56 mg/dL (9-16); Creatinine Clr Calc Pharmacy 34.1; Estimated Glomerular Filt Rate 43
--- NOTE | 2025-06-24 11:05 | PM.HEMONCPN ---
Medical Summary - Medical Summary Date of Service: 06/24/25 Chief complaint: Fatigue Primary Care Provider: Kobe Christian MD Medical Summary: DIAGNOSIS: CMML. 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 He is no longer on oxygen. He denies any skin bruising but he reports chronic history of nosebleeds especially when he blows his nose. No hematochezia or melena. No fever or chills. No chest pain or shortness of breath at this time. Review of Systems - Neurologic Reports no additional neurologic complaints, Denies memory loss, Denies seizure-like activity, Reports weakness PMFSH Medical History: Medical History (Last Reviewed 06/23/25 @ 12:12 by Cherrie Acevedo, PT) Asbestosis Atrial fibrillation Atrial fibrillation with RVR Chronic cough CKD stage 3 secondary to diabetes COPD exacerbation Diabetes Heart failure with reduced ejection fraction MDS/MPN (myelodysplastic/myeloproliferative neoplasms) Prediabetes Renal cyst Sacrococcygeal pilonidal cyst Sciatica Thrombocytopenia Functional capacity: uses cane/walker Surgical History: Surgical History (Last Reviewed 06/23/25 @ 12:12 by Cherrie Acevedo, PT) History of colonoscopy Onset Date: ~10/27/16 Hx of cardiac cath S/P cardiac cath Stented coronary artery Social History: Social History (Last Reviewed 06/15/25 @ 01:23 by Oma Vieyra [facility]) Living Situation History: Household Members: Unknown / Unable to asses Housing: Unknown / Unable to asses Do you presently have visiting nurse or other home services: No Alcohol History Details: 1. How often do you have a drink containing alcohol?: a. Never AUDIT-C Alcohol total score: 0 Currently Displaying Signs/Symptoms of Alcohol Withdrawal: No Tobacco History: Patient Tobacco Use Status: Former Tobacco user Smoked in Last 30 Days: No Patient Interested in Nicotine Replacement: No Patient Given Instructions on How to Stop Smoking: No Second Hand Smoke Exposure: No Substance Use History: Use of substances other than those prescribed or required for medical reasons: No Currently Displaying Signs/Symptoms of Drug Intoxication Withdrawal: No Domestic Abuse History: Have you been hit, kicked, punched, or otherwise hurt by someone within the past year? If so, by whom?: No Do you feel safe in your current relationship?: No Current Relationship Is there a partner from a previous relationship who is making you feel unsafe now?: No Are you made to feel afraid or neglected: No Advance Directives: Advance Directives: Yes Advance Directives on File: Yes Advance Directives Date on File: 09/13/24 Homicidal Assessment: Do you have a plan to hurt others: No Plan Nutrition Assessment: Recently lost weight without trying: No Nutrition Risks: On aspiration precautions Poor oral hygiene: No Occupation Assessmet: service: No Current occupational status: retired Current occupational status: disabled - Travel History Ebola Risk: Travel/Contact With Anyone From Affected Area/s: No Has Patient Experienced Ebola Symptoms: No Home Medications and Allergies Current Medications: Current Medications Acetaminophen (Acetaminophen 325 Mg Tablet) 650 mg PO Q6H PRN PRN Reason: Pain, Mild 1-3,fever,headache Last Admin: 06/15/25 02:16 Dose: 650 mg Allopurinol (Allopurinol 100 Mg Tablet) 100 mg PO DAILY [facility] Last Admin: 06/24/25 07:34 Dose: 100 mg Amoxicillin/Clavulanate Potassium (Amoxicillin/Potassium Clav 875 Mg Tablet) 875 mg PO BID [facility] Last Admin: 06/24/25 07:33 Dose: 875 mg Atorvastatin Calcium (Atorvastatin Calcium 40 Mg Tablet) 40 mg PO BEDTIME [facility] Last Admin: 06/23/25 22:00 Dose: 40 mg Calcium Carbonate (Calcium Carbonate 750 Mg Tab.Chew) 750 mg PO Q4H PRN PRN Reason: Heartburn Dextrose (Dextrose 50 % 25 Gm/50 Ml Syringe) 25 gm IVPUSH Q15M PRN; Protocol PRN Reason: per Hypoglycemia Standing Ord. Empagliflozin (Empagliflozin 10 Mg Tablet) 10 mg PO DAILY [facility] Furosemide (Furosemide 20 Mg Tablet) 20 mg PO BID@0900,1800 [facility]; Protocol Last Admin: 06/24/25 07:34 Dose: 20 mg Glucose (Glucose Gel 15 Gm Gel..Gram.) 15 gm PO Q15M PRN; Protocol PRN Reason: per Hypoglycemia Standing Ord. Guaifenesin (Guaifenesin 200 Mg/10 Ml 10 Ml Liquid) 10 ml PO Q4H PRN PRN Reason: Cough Last Admin: 06/22/25 20:47 Dose: 10 ml Immune Globulin (Gammagard 10%) 20 gm in 200 mls @ 38 mls/hr IV ONCE ONE Stop: 06/24/25 17:15 Immune Globulin (Gammagard 10%) 20 gm in 200 mls @ 38 mls/hr IV .EXTRA DOSE ONE Stop: 06/24/25 23:15 Immune Globulin (Gammagard 10%) 20 gm in 200 mls @ 38 mls/hr IV .EXTRA DOSE ONE Stop: 06/25/25 05:15 Immune Globulin (Gammagard 10%) 20 gm in 200 mls @ 38 mls/hr IV .EXTRA DOSE ONE Stop: 06/25/25 11:15 Insulin Human Lispro (Insulin Lispro 100 Unit/Ml 3 Ml Vial) 0 unit SUBCUT QIDACHS [facility]; Protocol Last Admin: 06/24/25 07:30 Dose: Not Given Magnesium Hydroxide (Milk Of Magnesia 30 Ml Oral.Susp) 30 ml PO DAILY PRN PRN Reason: Constipation Melatonin (Melatonin 3 Mg Tablet) 6 mg PO BEDTIME PRN PRN Reason: Insomnia Metoprolol Tartrate (Metoprolol Tartrate 25 Mg Tablet) 25 mg PO BID [facility]; Protocol Last Admin: 06/24/25 07:33 Dose: 25 mg Ondansetron HCl (Ondansetron Hcl 4 Mg/2 Ml Vial) 4 mg IVPUSH Q8H PRN PRN Reason: Nausea and Vomiting Polyethylene Glycol (Polyethylene Glycol 3350 17 Gm Powd.Pack) 17 gm PO DAILY PRN PRN Reason: Constipation Prednisone (Prednisone 20 Mg Tablet) 60 mg PO DAILY [facility] Last Admin: 06/24/25 07:33 Dose: 60 mg Sacubitril/Valsartan (Sacubitril/Valsartan 49/51 1 Tab Tablet) 1 tab PO BID [facility]; Protocol On Hold: 06/21/25 23:01 Comment: low bp Last Admin: 06/21/25 20:54 Dose: 1 tab Senna (Sennosides 8.6 Mg Tablet) 17.2 mg PO BEDTIME [facility] Last Admin: 06/23/25 22:01 Dose: Not Given Sodium Bicarbonate (Sodium Bicarbonate 650 Mg Tablet) 650 mg PO BID [facility] Last Admin: 06/24/25 07:34 Dose: 650 mg Sodium Chloride (0.9 % Sodium Chloride Flush 3 Ml Syringe) 3 ml IVFLUSH QSHIFT [facility] Last Admin: 06/24/25 07:34 Dose: 3 ml Home Medications ?Medication ?Instructions ?Recorded ?Confirmed ?Type fluticasone furoate 200 1 inh inhalation DAILY PRN 06/15/25 06/15/25 History mcg/actuation blister powder for Shortness Of Breath Or Wheezing inhalation (Arnuity Ellipta) tramadol 50 mg tablet 50 mg PO TID PRN moderate pain 06/15/25 06/15/25 History Allergies Allergy/AdvReac Type Severity Reaction Status Date / Time No Known Allergies Allergy Verified 06/14/25 22:39 Exam Vital signs: Vital Signs Temp 97.8 F 06/24/25 10:46 Pulse 63 06/24/25 10:46 Resp 18 06/24/25 10:46 BP 126/62 06/24/25 10:46 Pulse Ox 98 06/24/25 10:23 O2 Del Method Room Air 06/24/25 10:23 O2 Flow Rate 2 06/22/25 15:10 Intake & Output 06/23/25 06/24/25 06/24/25 18:59 06:59 18:59 Intake Total 360 / 530 170 / 530 0 / 0 Output Total 500 / 1700 1200 / 1700 Balance -140 / -1170 -1030 / -1170 0 / 0 Urine Output (Average ml/kg/hr) 0.54 1.30 1.30 Intake: Intake, Oral Amount 360 / 530 170 / 530 Intake (Blood Product) Amount 0 / 0 Plt Aph Pas Pathreduced(E8341) 0 / 0 Unit [id number] Output: Output, Urine Amount 500 / 1700 1200 / 1700 Other: Number of Bowel Movements 1 1 Urine m purewick M purewick Urine Color Tea Yellow Last Bowel Movement 06/23/25 06/23/25 06/24/25 Stool Bedside Commode Bedside Commode Stool Amount Large Small Stool Color Brown Brown Stool Consistency Mushy Mushy Weight 77.1 kg BMI result Body Mass Index 26.6 - Constitutional Present: mild distress - Routine HEENT Exam Head: Present: normal inspection, normocephalic - Routine Respiratory Exam Present: rales. Absent: accessory muscle use, wheezes - Routine Cardiovascular Exam Cardiovascular: Present: S1, S2 Data - Labs CBC & Chem 7: 06/24/25 06:56 06/24/25 06:56 - Imaging Radiologist's impression: ITS Impressions Chest X-Ray 06/18/25 07:10 IMPRESSION: Worsening airspace opacities in both lower lung zones with improvement in the upper lung zones. Small bilateral pleural effusions. Electronically signed by: Ezio Alexander MD 06/18/2025 07:58 AM EDT RP Chest X-Ray 06/19/25 07:20 IMPRESSION: Improved aeration of the bilateral lower lung zones. Tiny bilateral pleural effusions. Electronically signed by: Ezio Alexander MD 06/19/2025 07:37 AM EDT RP Assessment and Plan Patient Active problem list reviewed?: Yes (1) CMML (chronic myelomonocytic leukemia) Status: Acute Assessment and plan: This is a 80 year old male with CMML status post 1st cycle 5 azacitidine who has been admitted for hypoxic respiratory failure. CT Chest from 06/15: Bilateral multifocal airspace opacities and pleural effusions. Findings may represent sequelae of infection, inflammation, pneumonitis in the acute setting. Recommend follow-up evaluation to resolution with particular attention to the left upper lobe opacities, to exclude underlying neoplasm. He was empirically treated with broad-spectrum antibiotics, IV Solu-Medrol as well as diuresed for mild CHF. His oxygenation has improved and he is no longer oxygen dependent. Chest x-ray performed 06/22/2025 shows resolution of pneumonia. He may have had acute pneumonitis like reaction to chemotherapy, 5 azacitidine. He responded to steroids. 2. Persistent thrombocytopenia secondary to underlying bone marrow malignancy. He also has splenomegaly which could be contributing. He has not responded to multiple units of platelet transfusion. No evidence of DIC or myelophthisic process. ITP is a possibility. He is on prednisone 60 mg p.o. daily. He will be treated with IVIG 1 gram/kilos for 1-2 days to improve platelet counts as he continues to drop. Transfuse 2 units PRBC. - Time Spent With Patient Time Spent with Patient (in minutes): 10 Additional Coding: - Additional E/M codes Complex E/M visit Add On: CPT G2211
[2025-06-24 11:23] LABS: Glucose, Whole Blood 320 mg/dL (60-115)
[2025-06-24] MEDS: Immune Globulin 10% Gammagard 20 GM/200 ML VIAL IV ×2 (11:59→17:48)
[2025-06-24 13:16] LABS: Glucose, Whole Blood 271 mg/dL (60-115)
--- NOTE | 2025-06-24 16:06 | P.EN_ITS ---
Event Note Date of Service: 06/24/25 Event Note: Pt became lethargic, somnolent vitals stable and pale look, he was easily aroused and would say to be left alone but that was a deviation from earlier when he was fully awake and alert a stat CT of head show no acute bleed, exam: no focal deficit. He gradually impr emily and is more awake and alert, will continue to closely monitor Time Spent With Patient Time: Total time managing care of this patient today ____ minutes.
[2025-06-24 16:12] LABS: Glucose, Whole Blood 261 mg/dL (60-115)
[2025-06-24 20:34] LABS: Glucose, Whole Blood 266 mg/dL (60-115)
[2025-06-25] MEDS: Immune Globulin 10% Gammagard 20 GM/200 ML VIAL IV ×2 (00:29→05:50)
[2025-06-25 02:05] VITALS: BP 164/79; PULSE 62; RESP 17; TEMP 36.7
[2025-06-25 04:00] VITALS: BP 164/79; PULSE 48; RESP 18; TEMP 36.3; O2SAT 98
[2025-06-25 07:07] VITALS: BP 146/67; PULSE 50; RESP 18; TEMP 36.6; O2SAT 94
[2025-06-25 07:18] LABS: Glucose, Whole Blood 152 mg/dL (60-115)
[2025-06-25 07:32] LABS: MANUAL DIFF FLAG NO
[2025-06-25 07:50] LABS: Hematocrit 28.4 % (42.0-52.0); Hemoglobin 9.1 g/dl (14.0-18.0); Imm Gran Abs Auto 0.32 X10*3/uL (0.00-0.03); Imm Gran Pct Auto 2.0 % (0.0-0.4); Lymphocytes Absolute Auto 0.5 X10*3/uL (1.2-4.9); Mean Corpuscular HGB Conc 32.0 g/dl (31.0-36.0); Mean Corpuscular Hemoglobin 32.5 pg (27.0-33.0); Mean Corpuscular Volume 101.4 fL (80.0-98.0); NRBC Abs Auto 0.000 X10*3/uL (0.0-0.012); NRBC Pct Auto 0.0 /100WBC (0.0-0.2); Red Blood Count 2.80 X10*6/uL (4.60-5.80); White Blood Count 15.9 X10*3/uL (4.8-10.8)
[2025-06-25 07:58] LABS: Alanine Aminotransferase 35 U/L (0-40); Albumin Level 3.1 g/dL (3.5-5.0); Alkaline Phosphatase 130 U/L (39-117); Anion Gap 12 (12-20); Aspartate Amino Transferase 19 U/L (5-37); Blood Urea Nitrogen 56 mg/dL (9-16); Calcium 8.5 mg/dL (8.4-10.2); Carbon Dioxide 27 mmol/L (22-29); Chloride 107 mmol/L (96-108); Creatinine Clr Calc Pharmacy 35.0; Estimated Glomerular Filt Rate 44; Potassium 3.9 mmol/L (3.3-5.1); Sodium 142 mmol/L (135-145); Total Protein 6.7 g/dL (6.5-8.0)
[2025-06-25 08:22] LABS: Platelet Count 10 X10*3/uL (160-400)
[2025-06-25 11:26] VITALS: BP 151/65; PULSE 56; RESP 16; TEMP 36.3; O2SAT 94
[2025-06-25 11:33] LABS: Glucose, Whole Blood 229 mg/dL (60-115)
--- NOTE | 2025-06-25 12:19 | MHC.CM.PN ---
Per ROUNDS discussion, Patient is not yet medically cleared for dc (Platelets & IVIG); home with new VNA is the goal and CM will continue to follow.
--- NOTE | 2025-06-25 13:49 | PM.HEMONCPN ---
Medical Summary - Medical Summary Date of Service: 06/25/25 Chief complaint: Tired Primary Care Provider: Kobe Christian MD Medical Summary: DIAGNOSIS: CMML. Head Of Strategy Utilized?: No - Setswana Speaking Interval History Interval history: Patient is doing okay, bit frustrated about his blood counts. He is no longer on oxygen. He denies any skin bruising but he reports chronic history of nosebleeds especially when he blows his nose. No hematochezia or melena. No fever or chills. No chest pain or shortness of breath at this time. He underwent emergent brain imaging since he appeared lethargic last evening. He denies any complaints at this time. Review of Systems - Neurologic Reports system reviewed and no additional complaints, except as documented, Reports weakness, Denies memory loss, Denies seizure-like activity [facility] Medical History: Medical History (Last Reviewed 06/23/25 @ 12:12 by Cherrie Acevedo, PT) Asbestosis Atrial fibrillation Atrial fibrillation with RVR Chronic cough CKD stage 3 secondary to diabetes COPD exacerbation Diabetes Heart failure with reduced ejection fraction MDS/MPN (myelodysplastic/myeloproliferative neoplasms) Prediabetes Renal cyst Sacrococcygeal pilonidal cyst Sciatica Thrombocytopenia Functional capacity: uses cane/walker Surgical History: Surgical History (Last Reviewed 06/23/25 @ 12:12 by Cherrie Acevedo, PT) History of colonoscopy Onset Date: ~10/27/16 Hx of cardiac cath S/P cardiac cath Stented coronary artery Social History: Social History (Last Reviewed 06/15/25 @ 01:23 by Oma Vieyra [facility]) Living Situation History: Household Members: Unknown / Unable to asses Housing: Unknown / Unable to asses Do you presently have visiting nurse or other home services: No Tobacco History: Patient Tobacco Use Status: Former Tobacco user Second Hand Smoke Exposure: No Advance Directives: Advance Directives Date on File: 09/13/24 Occupation Assessmet: service: No Current occupational status: retired Current occupational status: disabled - Travel History Ebola Risk: Travel/Contact With Anyone From Affected Area/s: No Has Patient Experienced Ebola Symptoms: No Home Medications and Allergies Current Medications: Current Medications Acetaminophen (Acetaminophen 325 Mg Tablet) 650 mg PO Q6H PRN PRN Reason: Pain, Mild 1-3,fever,headache Last Admin: 06/15/25 02:16 Dose: 650 mg Allopurinol (Allopurinol 100 Mg Tablet) 100 mg PO DAILY [facility] Last Admin: 06/25/25 08:49 Dose: 100 mg Amoxicillin/Clavulanate Potassium (Amoxicillin/Potassium Clav 875 Mg Tablet) 875 mg PO BID [facility] Last Admin: 06/25/25 08:48 Dose: 875 mg Atorvastatin Calcium (Atorvastatin Calcium 40 Mg Tablet) 40 mg PO BEDTIME [facility] Last Admin: 06/24/25 21:36 Dose: 40 mg Calcium Carbonate (Calcium Carbonate 750 Mg Tab.Chew) 750 mg PO Q4H PRN PRN Reason: Heartburn Dextrose (Dextrose 50 % 25 Gm/50 Ml Syringe) 25 gm IVPUSH Q15M PRN; Protocol PRN Reason: per Hypoglycemia Standing Ord. Empagliflozin (Empagliflozin 10 Mg Tablet) 10 mg PO DAILY [facility] Last Admin: 06/25/25 08:49 Dose: 10 mg Furosemide (Furosemide 20 Mg Tablet) 20 mg PO BID@0900,1800 [facility]; Protocol Last Admin: 06/25/25 08:49 Dose: 20 mg Glucose (Glucose Gel 15 Gm Gel..Gram.) 15 gm PO Q15M PRN; Protocol PRN Reason: per Hypoglycemia Standing Ord. Guaifenesin (Guaifenesin 200 Mg/10 Ml 10 Ml Liquid) 10 ml PO Q4H PRN PRN Reason: Cough Last Admin: 06/22/25 20:47 Dose: 10 ml Insulin Human Lispro (Insulin Lispro 100 Unit/Ml 3 Ml Vial) 0 unit SUBCUT QIDACHS [facility]; Protocol Last Admin: 06/25/25 12:05 Dose: 2 unit Magnesium Hydroxide (Milk Of Magnesia 30 Ml Oral.Susp) 30 ml PO DAILY PRN PRN Reason: Constipation Melatonin (Melatonin 3 Mg Tablet) 6 mg PO BEDTIME PRN PRN Reason: Insomnia Ondansetron HCl (Ondansetron Hcl 4 Mg/2 Ml Vial) 4 mg IVPUSH Q8H PRN PRN Reason: Nausea and Vomiting Polyethylene Glycol (Polyethylene Glycol 3350 17 Gm Powd.Pack) 17 gm PO DAILY PRN PRN Reason: Constipation Prednisone (Prednisone 20 Mg Tablet) 60 mg PO DAILY [facility] Last Admin: 06/25/25 08:48 Dose: 60 mg Romiplostim (Romiplostim 125 Mcg/0.25 Ml Vial) 80 mcg SUBCUT ONCE ONE Stop: 06/25/25 14:01 Sacubitril/Valsartan (Sacubitril/Valsartan 49/51 1 Tab Tablet) 1 tab PO BID [facility]; Protocol On Hold: 06/21/25 23:01 Comment: low bp Last Admin: 06/21/25 20:54 Dose: 1 tab Senna (Sennosides 8.6 Mg Tablet) 17.2 mg PO BEDTIME [facility] Last Admin: 06/24/25 21:39 Dose: Not Given Sodium Bicarbonate (Sodium Bicarbonate 650 Mg Tablet) 650 mg PO BID [facility] Last Admin: 06/25/25 08:49 Dose: 650 mg Sodium Chloride (0.9 % Sodium Chloride Flush 3 Ml Syringe) 3 ml IVFLUSH QSHIFT [facility] Last Admin: 06/25/25 08:43 Dose: Not Given Home Medications ?Medication ?Instructions ?Recorded ?Confirmed ?Type fluticasone furoate 200 1 inh inhalation DAILY PRN 06/15/25 06/15/25 History mcg/actuation blister powder for Shortness Of Breath Or Wheezing inhalation (Arnuity Ellipta) tramadol 50 mg tablet 50 mg PO TID PRN moderate pain 06/15/25 06/15/25 History Allergies Allergy/AdvReac Type Severity Reaction Status Date / Time No Known Allergies Allergy Verified 06/14/25 22:39 Exam Vital signs: Vital Signs Temp 97.4 F 06/25/25 11:26 Pulse 56 06/25/25 11:26 Resp 16 06/25/25 11:26 BP 151/65 H 06/25/25 11:26 Pulse Ox 94 06/25/25 11:26 O2 Del Method Room Air 06/25/25 11:26 O2 Flow Rate 2 06/22/25 15:10 Intake & Output 06/24/25 06/25/25 06/25/25 18:59 06:59 18:59 Intake Total 829 / 1579 750 / 1579 200 / 200 Output Total 800 / 1400 600 / 1400 Balance 150 / 179 200 / 200 Urine Output (Average ml/kg/hr) 0.86 0.65 0.65 Intake: Intake (Blood Product) Amount 629 / 979 350 / 979 Plt Aph Pas Pathreduced(E8341) 279 / 279 Unit [id number] Red Blood Cells (E0336) Unit 350 / 350 [id number] Red Blood Cells (E0336) Unit 350 / 350 [id number] Intake, IV Amount 200 / 600 400 / 600 200 / 200 Immune Globulin 10% Gammagard 200 / 600 400 / 600 200 / 200 20 gm In 200 ml @ 38 mls/hr IV .EXTRA DOSE ONE Rx#:[id number] Output: Output, Urine Amount 800 / 1400 600 / 1400 Output, Stool Amount 0 / 0 Other: Number of Incontinent Voids 0 Number of Unmeasured Voids 2 Number of Bowel Movements 1 1 Urine m purewick purwick Urine Color Yellow Yellow Last Bowel Movement 06/24/25 06/24/25 Stool Bedside Commode Bedside Commode Stool Amount Small Moderate Stool Color Brown Green Stool Consistency Mushy Mushy Weight 77.1 kg BMI result Body Mass Index 26.6 - Constitutional Present: mild distress - Routine HEENT Exam Head: Present: normal inspection, normocephalic - Routine Respiratory Exam Present: rales. Absent: accessory muscle use, wheezes - Routine Cardiovascular Exam Cardiovascular: Present: S1, S2 Data - Labs CBC & Chem 7: 06/25/25 07:16 06/25/25 07:01 - Imaging Radiologist's impression: ITS Impressions Chest X-Ray 06/18/25 07:10 IMPRESSION: Worsening airspace opacities in both lower lung zones with improvement in the upper lung zones. Small bilateral pleural effusions. Electronically signed by: Ezio Alexander MD 06/18/2025 07:58 AM EDT RP Chest X-Ray 06/19/25 07:20 IMPRESSION: Improved aeration of the bilateral lower lung zones. Tiny bilateral pleural effusions. Electronically signed by: Ezio Alexander MD 06/19/2025 07:37 AM EDT RP Head CT 06/24/25 12:23 IMPRESSION: No acute intracranial abnormality. Mild generalized atrophy and chronic small vessel changes. Electronically signed by: Carson Mcclellan MD 06/24/2025 01:40 PM EDT RP Assessment and Plan Patient Active problem list reviewed?: Yes (1) CMML (chronic myelomonocytic leukemia) Status: Acute Assessment and plan: This is a 80 year old male with CMML status post 1st cycle 5 azacitidine who has been admitted for hypoxic respiratory failure. CT Chest from 06/15: Bilateral multifocal airspace opacities and pleural effusions. Findings may represent sequelae of infection, inflammation, pneumonitis in the acute setting. Recommend follow-up evaluation to resolution with particular attention to the left upper lobe opacities, to exclude underlying neoplasm. He was empirically treated with broad-spectrum antibiotics, IV Solu-Medrol as well as diuresed for mild CHF. His oxygenation has improved and he is no longer oxygen dependent. Chest x-ray performed 06/22/2025 shows resolution of pneumonia. He may have had acute pneumonitis like reaction to chemotherapy, 5 azacitidine. He responded to steroids. 2. Persistent thrombocytopenia secondary to underlying bone marrow malignancy. He also has splenomegaly which could be contributing. He has not responded to multiple units of platelet transfusion. No evidence of DIC or myelophthisic process. ITP is a possibility. He is on prednisone 60 mg p.o. daily. He will be treated with IVIG 1 gram/kilos for 1-2 days to improve platelet counts as he continues to drop. He received blood and platelet transfusion yesterday. In spite of prednisone and IVIG, platelet counts have not increased and he remains at 10. Romiplostim 1 mcg/kilos, 77 mcg to be administered today. Monitor daily labs. Consider discharge in the next day or 2 if counts are stable. - Time Spent With Patient Time Spent with Patient (in minutes): 15 Additional Coding: - Additional E/M codes Complex E/M visit Add On: CPT G2211
[2025-06-25] MEDS: 0.9 % Sodium Chloride Flush 3 ML SYRINGE IVFLUSH ×2 (14:46→22:07)
[2025-06-25] MEDS: ROMIPLOSTIM 80 MCG SUBCUT (14:46)
[2025-06-25 15:41] VITALS: BP 147/67; PULSE 59; RESP 16; TEMP 36.4; O2SAT 98
[2025-06-25 16:08] LABS: Glucose, Whole Blood 262 mg/dL (60-115)
--- NOTE | 2025-06-25 17:55 | P.PNIM_ITS ---
Subjective Subjective Date of Service: 06/25/25 Interval History: Patient is frustrated today. overall, doing well though; eating and drinking. stooling and urinating. No new medical complaints otherwise. Frustrated regarding lengthy inpatient stay; acknowledged. Review of Systems Review of Systems: Yes all other systems are reviewed and are negative Physical Exam 2 Exam: Exam: General: A&O x3, oriented to time place person and siutaion, comfortable, no pain Cardiac: S1, S2 auscultated with no S3/4, no MRG. Well perfused. Respiratory: Normal breath sounds auscultated throughout all lung zones, without wheezing, rales. Normal rate. GI/ : No abdominal pain on palpation, no masses or distentions. MSK: Normal ambulation without pain at bony prominences or musculature Neurological: Normal neurological examination on overview, without obvious CN II-XII abnormalities. Vital Signs: Vital Signs: Last Vital Signs Temp 97.6 F 06/25/25 15:41 Pulse 59 06/25/25 15:41 Resp 16 06/25/25 15:41 BP 147/67 H 06/25/25 15:41 Pulse Ox 98 06/25/25 15:41 O2 Del Method Room Air 06/25/25 15:41 O2 Flow Rate 2 06/22/25 15:10 BMI result Body Mass Index 26.6 Objective Data Active Medications Acetaminophen (Acetaminophen 325 Mg Tablet) 650 mg PO Q6H PRN PRN Reason: Pain, Mild 1-3,fever,headache Last Admin: 06/15/25 02:16 Dose: 650 mg Documented By: MONIK Allopurinol (Allopurinol 100 Mg Tablet) 100 mg PO DAILY [facility] Last Admin: 06/25/25 08:49 Dose: 100 mg Documented By: LOW Amoxicillin/Clavulanate Potassium (Amoxicillin/Potassium Clav 875 Mg Tablet) 875 mg PO BID [facility] Last Admin: 06/25/25 08:48 Dose: 875 mg Documented By: LOW Atorvastatin Calcium (Atorvastatin Calcium 40 Mg Tablet) 40 mg PO BEDTIME [facility] Last Admin: 06/24/25 21:36 Dose: 40 mg Documented By: JUDITH Calcium Carbonate (Calcium Carbonate 750 Mg Tab.Chew) 750 mg PO Q4H PRN PRN Reason: Heartburn Dextrose (Dextrose 50 % 25 Gm/50 Ml Syringe) 25 gm IVPUSH Q15M PRN; Protocol PRN Reason: per Hypoglycemia Standing Ord. Empagliflozin (Empagliflozin 10 Mg Tablet) 10 mg PO DAILY [facility] Last Admin: 06/25/25 08:49 Dose: 10 mg Documented By: LOW Furosemide (Furosemide 20 Mg Tablet) 20 mg PO BID@0900,1800 [facility]; Protocol Last Admin: 06/25/25 08:49 Dose: 20 mg Documented By: LOW Glucose (Glucose Gel 15 Gm Gel..Gram.) 15 gm PO Q15M PRN; Protocol PRN Reason: per Hypoglycemia Standing Ord. Guaifenesin (Guaifenesin 200 Mg/10 Ml 10 Ml Liquid) 10 ml PO Q4H PRN PRN Reason: Cough Last Admin: 06/22/25 20:47 Dose: 10 ml Documented By: ARIAN Insulin Human Lispro (Insulin Lispro 100 Unit/Ml 3 Ml Vial) 0 unit SUBCUT QIDACHS [facility]; Protocol Last Admin: 06/25/25 16:28 Dose: 4 unit Documented By: LOW Magnesium Hydroxide (Milk Of Magnesia 30 Ml Oral.Susp) 30 ml PO DAILY PRN PRN Reason: Constipation Melatonin (Melatonin 3 Mg Tablet) 6 mg PO BEDTIME PRN PRN Reason: Insomnia Ondansetron HCl (Ondansetron Hcl 4 Mg/2 Ml Vial) 4 mg IVPUSH Q8H PRN PRN Reason: Nausea and Vomiting Polyethylene Glycol (Polyethylene Glycol 3350 17 Gm Powd.Pack) 17 gm PO DAILY PRN PRN Reason: Constipation Prednisone (Prednisone 20 Mg Tablet) 60 mg PO DAILY [facility] Last Admin: 06/25/25 08:48 Dose: 60 mg Documented By: LOW Sacubitril/Valsartan (Sacubitril/Valsartan 49/51 1 Tab Tablet) 1 tab PO BID [facility]; Protocol On Hold: 06/21/25 23:01 Comment: low bp Last Admin: 06/21/25 20:54 Dose: 1 tab Documented By: DAMARIS Senna (Sennosides 8.6 Mg Tablet) 17.2 mg PO BEDTIME [facility] Last Admin: 06/24/25 21:39 Dose: Not Given Documented By: JUDITH Non-Admin Reason: Patient Refused Sodium Bicarbonate (Sodium Bicarbonate 650 Mg Tablet) 650 mg PO BID [facility] Last Admin: 06/25/25 08:49 Dose: 650 mg Documented By: LOW Sodium Chloride (0.9 % Sodium Chloride Flush 3 Ml Syringe) 3 ml IVFLUSH QSHIFT [facility] Last Admin: 06/25/25 14:46 Dose: 3 ml Documented By: LOW Labs 06/25/25 07:16 06/25/25 07:01 Labs: Laboratory Results - last 24 hr 06/21/25 06/24/25 06/24/25 15:31 18:05 20:23 MCV MCH MCHC RDW Plt Count MPV Immature Gran % (Auto) Neut % (Auto) Lymph % (Auto) [place] % (Auto) Eos % (Auto) Baso % (Auto) Lymph # (Auto) [place] # (Auto) Eos # (Auto) Baso # (Auto) Abs Immat Gran (auto) Absolute Neuts (auto) Absolute Nucleated RBC Nucleated RBC % (auto) Anion Gap Estim Creat Clear Calc Estimated GFR POC Glucose 266 H Random Glucose Calcium Total Bilirubin AST ALT Alkaline Phosphatase Total Protein Albumin Blood Type O Positive Antibody Screen NEGATIVE Crossmatch See Detail See Detail 06/25/25 06/25/25 06/25/25 07:01 07:10 07:16 MCV 101.4 H MCH 32.5 MCHC 32.0 RDW 23.1 H Plt Count 10 L* MPV Not Reportable Immature Gran % (Auto) 2.0 H Neut % (Auto) 86.1 H Lymph % (Auto) 3.1 L [place] % (Auto) 8.5 Eos % (Auto) 0.0 Baso % (Auto) 0.3 Lymph # (Auto) 0.5 L [place] # (Auto) 1.4 H Eos # (Auto) 0.0 Baso # (Auto) 0.1 Abs Immat Gran (auto) 0.32 H Absolute Neuts (auto) 13.7 H Absolute Nucleated RBC 0.000 Nucleated RBC % (auto) 0.0 Anion Gap 12 Estim Creat Clear Calc 35.0 Estimated GFR 44 POC Glucose 152 H Random Glucose 172 H Calcium 8.5 Total Bilirubin 1.0 AST 19 ALT 35 Alkaline Phosphatase 130 H Total Protein 6.7 Albumin 3.1 L Blood Type Antibody Screen Crossmatch 06/25/25 06/25/25 11:30 16:01 MCV MCH MCHC RDW Plt Count MPV Immature Gran % (Auto) Neut % (Auto) Lymph % (Auto) [place] % (Auto) Eos % (Auto) Baso % (Auto) Lymph # (Auto) [place] # (Auto) Eos # (Auto) Baso # (Auto) Abs Immat Gran (auto) Absolute Neuts (auto) Absolute Nucleated RBC Nucleated RBC % (auto) Anion Gap Estim Creat Clear Calc Estimated GFR POC Glucose 229 H 262 H Random Glucose Calcium Total Bilirubin AST ALT Alkaline Phosphatase Total Protein Albumin Blood Type Antibody Screen Crossmatch Assessment and Plan (1) CMML (chronic myelomonocytic leukemia): Status: Acute Assessment and Plan: Oncology following - input greatly appreciated. The patient is currently on Azacitidine, possible contributing to patient's presentation and admission with acute hypoxic respiratory failure 2/2 acute pneumonitis. Has been responing to steroids. Oncology/ Hematology currently following (2) Thrombocytopenia: Status: Acute Assessment and Plan: Prpogressively worsening plts during admission. 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 The patient has not responded to plt transfusion - likely will continue to be unhelpful if ITP. Has completed a 2 day course of IVIG and has subsequently been discontinued. Currently on IV steroids. Heme/Onc considering Romiplostim. IF STABLE PLTs in 1-2 days, can consider DC home with close follow up (3) Heart failure with reduced ejection fraction: Status: Acute Assessment and Plan: HFrEf - RESOLVED BNP 894-->1044-->595 Negative 4 L Echo with moderately reduced LV ejection fraction 40-45% with grade 2 diastolic dysfunction Initially treated with IV Lasix and now on PO lasix 20 bid To continue Entresto, Jardiance and metoprolol. (4) NSTEMI (non-ST elevated myocardial infarction): Status: Acute Assessment and Plan: CAD, hx recent NSTEMI 08/2024, s/p RENE mid RCA:hold Plavix given thrombocytopenia continue metoprolol and atorvastatin (5) Acute kidney injury superimposed on CKD: Status: Acute Assessment and Plan: Resolved. Likely due to cardiorenal syndrome. (6) Atrial fibrillation with RVR: Status: Acute Assessment and Plan: Now NSR-hold Eliquis, continue metoprolol. (7) CAD (coronary artery disease): Status: Acute Assessment and Plan: CAD, hx recent NSTEMI 08/2024, s/p RENE mid RCA:hold Plavix. continue metoprolol and atorvastatin Plan Sepsis secondary to acute exacerbation of pneumonitis with acute hypoxic respiratory failure in the setting of immunosuppression from underlying CMML; chemotherapy reaction. WBC were as high as 54 but has steadily come down, presently 19K. chest CT: Bilateral multifocal airspace opacities and pleural effusions. Findings may represent sequelae of infection, inflammation, pneumonitis in the acute setting. Recommend follow-up evaluation to resolution with particular attention to the left upper lobe opacities, to exclude underlying neoplasm. Initial repeat CXR with worsening airspace opacities in both lower lung zones and small bilateral pleural effusions Last chest xray with improved aeration of bilateral lower lungs and tiny bilateral pleural effusions Was seen by pulmonary, was treated with Zosyn and vanco and later chaged to Augmentina nd will treat for total of 10 days. He was also on IV solumedrol now changed to Prednisone and will taper by 5 mg weekly per oncolgy recommendation. Total time managing care of this patient today: 45 minutes. Quality Stroke Does the patient have a stroke diagnosis?: No Reason for No Anti-thrombotic by Day Two: Contraindicated (low PLT count ) VTE Prior VTE?: No VTE Risk Level:: Medical - moderate - high VTE Device Contraindication: N/A - Device Ordered VTE Drug Contraindication: Treatment Not Indicated
[2025-06-25 20:00] VITALS: BP 129/63; PULSE 59; RESP 18; TEMP 36.6; O2SAT 98
[2025-06-25 21:21] LABS: Glucose, Whole Blood 331 mg/dL (60-115)
[2025-06-26] VITALS (10 sets, daily range): BP systolic 136–178; BP diastolic 68–82; PULSE 53–102; RESP 16–20; TEMP 36.1–36.9; O2SAT 93–100
[2025-06-26 06:36] LABS: MANUAL DIFF FLAG NO
[2025-06-26 06:39] LABS: Hematocrit 31.0 % (42.0-52.0); Hemoglobin 10.3 g/dl (14.0-18.0); Imm Gran Abs Auto 0.30 X10*3/uL (0.00-0.03); Imm Gran Pct Auto 2.0 % (0.0-0.4); Lymphocytes Absolute Auto 0.6 X10*3/uL (1.2-4.9); Mean Corpuscular HGB Conc 33.2 g/dl (31.0-36.0); Mean Corpuscular Hemoglobin 33.1 pg (27.0-33.0); Mean Corpuscular Volume 99.7 fL (80.0-98.0); NRBC Abs Auto 0.000 X10*3/uL (0.0-0.012); NRBC Pct Auto 0.0 /100WBC (0.0-0.2); Red Blood Count 3.11 X10*6/uL (4.60-5.80); White Blood Count 14.9 X10*3/uL (4.8-10.8)
[2025-06-26 06:46] LABS: Platelet Count 8 X10*3/uL (160-400)
[2025-06-26 07:03] LABS: Alanine Aminotransferase 36 U/L (0-40); Albumin Level 3.2 g/dL (3.5-5.0); Alkaline Phosphatase 136 U/L (39-117); Anion Gap 13 (12-20); Aspartate Amino Transferase 25 U/L (5-37); Blood Urea Nitrogen 60 mg/dL (9-16); Calcium 8.8 mg/dL (8.4-10.2); Carbon Dioxide 24 mmol/L (22-29); Chloride 109 mmol/L (96-108); Creatinine Clr Calc Pharmacy 35.4; Estimated Glomerular Filt Rate 45; Magnesium 1.9 mg/dL (1.6-2.6); Potassium 3.7 mmol/L (3.3-5.1); Sodium 142 mmol/L (135-145); Total Protein 7.2 g/dL (6.5-8.0)
[2025-06-26 07:19] LABS: B Type Natriuretic Peptide 780 pg/mL (<100)
[2025-06-26 07:21] LABS: Glucose, Whole Blood 141 mg/dL (60-115)
[2025-06-26] MEDS: 0.9 % Sodium Chloride Flush 3 ML SYRINGE IVFLUSH ×3 (09:40→22:16)
[2025-06-26 11:36] LABS: Glucose, Whole Blood 301 mg/dL (60-115)
--- NOTE | 2025-06-26 15:50 | P.PNIM_ITS ---
Subjective Subjective Date of Service: 06/26/25 Interval History: Overall no new issues or complaints. The patient feels well, other than malaise and fatigue. No new reported bruising, bleeding, bleeding gums, no melena or hematuria. The patient is eager to be discharged, but understands that this depends on clinical stability of platelets and other ongoing medical issues Review of Systems Review of Systems: Yes all other systems are reviewed and are negative Physical Exam 2 Vital Signs: Vital Signs: Last Vital Signs Temp 98.1 F 06/26/25 15:31 Pulse 59 06/26/25 15:31 Resp 16 06/26/25 15:31 BP 152/75 H 06/26/25 15:31 Pulse Ox 98 06/26/25 15:31 O2 Del Method Room Air 06/26/25 15:31 O2 Flow Rate 2 06/22/25 15:10 BMI result Body Mass Index 26.6 Objective Data Active Medications Acetaminophen (Acetaminophen 325 Mg Tablet) 650 mg PO Q6H PRN PRN Reason: Pain, Mild 1-3,fever,headache Last Admin: 06/15/25 02:16 Dose: 650 mg Documented By: MONIK Allopurinol (Allopurinol 100 Mg Tablet) 100 mg PO DAILY [facility] Last Admin: 06/26/25 08:52 Dose: 100 mg Documented By: LOW Amoxicillin/Clavulanate Potassium (Amoxicillin/Potassium Clav 875 Mg Tablet) 875 mg PO BID [facility] Last Admin: 06/26/25 08:52 Dose: 875 mg Documented By: LOW Atorvastatin Calcium (Atorvastatin Calcium 40 Mg Tablet) 40 mg PO BEDTIME [facility] Last Admin: 06/25/25 22:06 Dose: 40 mg Documented By: KARLEE Calcium Carbonate (Calcium Carbonate 750 Mg Tab.Chew) 750 mg PO Q4H PRN PRN Reason: Heartburn Dextrose (Dextrose 50 % 25 Gm/50 Ml Syringe) 25 gm IVPUSH Q15M PRN; Protocol PRN Reason: per Hypoglycemia Standing Ord. Empagliflozin (Empagliflozin 10 Mg Tablet) 10 mg PO DAILY [facility] Last Admin: 06/26/25 08:52 Dose: 10 mg Documented By: LOW Furosemide (Furosemide 20 Mg Tablet) 20 mg PO BID@0900,1800 [facility]; Protocol Last Admin: 06/26/25 08:52 Dose: 20 mg Documented By: LOW Glucose (Glucose Gel 15 Gm Gel..Gram.) 15 gm PO Q15M PRN; Protocol PRN Reason: per Hypoglycemia Standing Ord. Guaifenesin (Guaifenesin 200 Mg/10 Ml 10 Ml Liquid) 10 ml PO Q4H PRN PRN Reason: Cough Last Admin: 06/22/25 20:47 Dose: 10 ml Documented By: MARY-DESSK Insulin Human Lispro (Insulin Lispro 100 Unit/Ml 3 Ml Vial) 0 unit SUBCUT QIDACHS [facility]; Protocol Last Admin: 06/26/25 11:55 Dose: 6 unit Documented By: LOW Magnesium Hydroxide (Milk Of Magnesia 30 Ml Oral.Susp) 30 ml PO DAILY PRN PRN Reason: Constipation Melatonin (Melatonin 3 Mg Tablet) 6 mg PO BEDTIME PRN PRN Reason: Insomnia Ondansetron HCl (Ondansetron Hcl 4 Mg/2 Ml Vial) 4 mg IVPUSH Q8H PRN PRN Reason: Nausea and Vomiting Polyethylene Glycol (Polyethylene Glycol 3350 17 Gm Powd.Pack) 17 gm PO DAILY PRN PRN Reason: Constipation Prednisone (Prednisone 20 Mg Tablet) 60 mg PO DAILY [facility] Last Admin: 06/26/25 08:51 Dose: 60 mg Documented By: LOW Sacubitril/Valsartan (Sacubitril/Valsartan 1 Tab Tablet) 1 tab PO BID [facility]; Protocol On Hold: 06/21/25 23:01 Comment: low bp Last Admin: 06/21/25 20:54 Dose: 1 tab Documented By: DAMARIS Senna (Sennosides 8.6 Mg Tablet) 17.2 mg PO BEDTIME [facility] Last Admin: 06/25/25 22:08 Dose: Not Given Documented By: KARLEE Non-Admin Reason: Patient Refused Sodium Bicarbonate (Sodium Bicarbonate 650 Mg Tablet) 650 mg PO BID [facility] Last Admin: 06/26/25 08:52 Dose: 650 mg Documented By: LOW Sodium Chloride (0.9 % Sodium Chloride Flush 3 Ml Syringe) 3 ml IVFLUSH QSHIFT [facility] Last Admin: 06/26/25 09:40 Dose: 3 ml Documented By: LOW Labs 06/26/25 06:22 06/26/25 06:22 Labs: Laboratory Results - last 24 hr 06/24/25 06/25/25 06/25/25 18:05 16:01 21:12 MCV MCH MCHC RDW Plt Count MPV Immature Gran % (Auto) Neut % (Auto) Lymph % (Auto) [place] % (Auto) Eos % (Auto) Baso % (Auto) Lymph # (Auto) [place] # (Auto) Eos # (Auto) Baso # (Auto) Abs Immat Gran (auto) Absolute Neuts (auto) Absolute Nucleated RBC Nucleated RBC % (auto) Anion Gap Estim Creat Clear Calc Estimated GFR POC Glucose 262 H 331 H Random Glucose Calcium Magnesium Total Bilirubin AST ALT Alkaline Phosphatase B-Natriuretic Peptide Total Protein Albumin Blood Type O Positive Antibody Screen NEGATIVE Crossmatch See Detail 06/26/25 06/26/25 06/26/25 06:22 07:16 11:32 MCV 99.7 H MCH 33.1 H MCHC 33.2 RDW 22.9 H Plt Count 8 L* MPV TNP Immature Gran % (Auto) 2.0 H Neut % (Auto) 84.1 H Lymph % (Auto) 4.1 L [place] % (Auto) 9.4 Eos % (Auto) 0.1 Baso % (Auto) 0.3 Lymph # (Auto) 0.6 L [place] # (Auto) 1.4 H Eos # (Auto) 0.0 Baso # (Auto) 0.0 Abs Immat Gran (auto) 0.30 H Absolute Neuts (auto) 12.6 H Absolute Nucleated RBC 0.000 Nucleated RBC % (auto) 0.0 Anion Gap 13 Estim Creat Clear Calc 35.4 Estimated GFR 45 POC Glucose 141 H 301 H Random Glucose 162 H Calcium 8.8 Magnesium 1.9 Total Bilirubin 0.9 AST 25 ALT 36 Alkaline Phosphatase 136 H B-Natriuretic Peptide 780 H Total Protein 7.2 Albumin 3.2 L Blood Type Antibody Screen Crossmatch Assessment and Plan (1) CMML (chronic myelomonocytic leukemia): Status: Acute Assessment and Plan: Oncology following - input greatly appreciated. The patient is currently on Azacitidine, possible contributing to patient's presentation and admission with acute hypoxic respiratory failure 2/2 acute pneumonitis. Has been responing to steroids. Oncology/ Hematology currently following (2) Thrombocytopenia: Status: Acute Assessment and Plan: Prpogressively worsening plts during admission. 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 The patient has not responded to plt transfusion - likely will continue to be unhelpful if ITP. Has completed a 2 day course of IVIG and has subsequently been discontinued. Currently on IV steroids. Heme/Onc has administered Romiplostim. IF STABLE PLTs in 1-2 days, can consider DC home with close follow up (3) Heart failure with reduced ejection fraction: Status: Acute Assessment and Plan: HFrEf - RESOLVED BNP 894-->1044-->595 Negative 4 L Echo with moderately reduced LV ejection fraction 40-45% with grade 2 diastolic dysfunction Initially treated with IV Lasix and now on PO lasix 20 bid To continue Entresto, Jardiance and metoprolol. (4) NSTEMI (non-ST elevated myocardial infarction): Status: Acute Assessment and Plan: CAD, hx recent NSTEMI 08/2024, s/p RENE mid RCA: hold Plavix given thrombocytopenia continue metoprolol and atorvastatin (5) Acute kidney injury superimposed on CKD: Status: Acute Assessment and Plan: Resolved. Likely due to cardiorenal syndrome. (6) Atrial fibrillation with RVR: Status: Acute Assessment and Plan: Now NSR-hold Eliquis, continue metoprolol. (7) CAD (coronary artery disease): Status: Acute Assessment and Plan: CAD, hx recent NSTEMI 08/2024, s/p RENE mid RCA:hold Plavix. continue metoprolol and atorvastatin Plan Sepsis secondary to acute exacerbation of pneumonitis with acute hypoxic respiratory failure in the setting of immunosuppression from underlying CMML; chemotherapy reaction. WBC were as high as 54 but has steadily come down, presently 19K. chest CT: Bilateral multifocal airspace opacities and pleural effusions. Findings may represent sequelae of infection, inflammation, pneumonitis in the acute setting. Recommend follow-up evaluation to resolution with particular attention to the left upper lobe opacities, to exclude underlying neoplasm. Initial repeat CXR with worsening airspace opacities in both lower lung zones and small bilateral pleural effusions Last chest xray with improved aeration of bilateral lower lungs and tiny bilateral pleural effusions Was seen by pulmonary, was treated with Zosyn and vanco and later chaged to Augmentina nd will treat for total of 10 days. He was also on IV solumedrol now changed to Prednisone and will taper by 5 mg weekly per oncolgy recommendation. Total time managing care of this patient today: 35 minutes. Quality Stroke Does the patient have a stroke diagnosis?: No Reason for No Anti-thrombotic by Day Two: Contraindicated (low PLT count ) VTE Prior VTE?: No VTE Risk Level:: Medical - moderate - high VTE Device Contraindication: N/A - Device Ordered VTE Drug Contraindication: Treatment Not Indicated
[2025-06-26 16:26] LABS: Glucose, Whole Blood 256 mg/dL (60-115)
[2025-06-26 21:52] LABS: Glucose, Whole Blood 253 mg/dL (60-115)
[2025-06-27] VITALS (8 sets, daily range): BP systolic 102–170; BP diastolic 61–80; PULSE 57–132; RESP 16–20; TEMP 36.1–36.6; O2SAT 96–99
[2025-06-27 06:43] LABS: MANUAL DIFF FLAG NO
[2025-06-27 07:09] LABS: Anion Gap 11 (12-20); Blood Urea Nitrogen 54 mg/dL (9-16); Calcium 9.0 mg/dL (8.4-10.2); Carbon Dioxide 31 mmol/L (22-29); Chloride 106 mmol/L (96-108); Creatinine Clr Calc Pharmacy 33.7; Estimated Glomerular Filt Rate 42; Potassium 3.8 mmol/L (3.3-5.1); Sodium 144 mmol/L (135-145)
[2025-06-27 07:10] LABS: Hematocrit 31.2 % (42.0-52.0); Hemoglobin 10.1 g/dl (14.0-18.0); Imm Gran Abs Auto 0.19 X10*3/uL (0.00-0.03); Imm Gran Pct Auto 1.6 % (0.0-0.4); Lymphocytes Absolute Auto 0.7 X10*3/uL (1.2-4.9); Mean Corpuscular HGB Conc 32.4 g/dl (31.0-36.0); Mean Corpuscular Hemoglobin 32.6 pg (27.0-33.0); Mean Corpuscular Volume 100.6 fL (80.0-98.0); NRBC Abs Auto 0.000 X10*3/uL (0.0-0.012); NRBC Pct Auto 0.0 /100WBC (0.0-0.2); Red Blood Count 3.10 X10*6/uL (4.60-5.80); White Blood Count 11.9 X10*3/uL (4.8-10.8)
[2025-06-27 07:14] LABS: Glucose, Whole Blood 123 mg/dL (60-115)
[2025-06-27 07:22] LABS: Platelet Count 11 X10*3/uL (160-400)
[2025-06-27] MEDS: 0.9 % Sodium Chloride Flush 3 ML SYRINGE IVFLUSH ×2 (08:42→20:06)
[2025-06-27 11:33] LABS: Glucose, Whole Blood 177 mg/dL (60-115)
--- NOTE | 2025-06-27 11:56 | MHC.CM.PN ---
Patient is not yet medically cleared for dc (Low Platelets); home with services is the plan and CM will continue to follow.
--- NOTE | 2025-06-27 14:13 | P.PNIM_ITS ---
Subjective Subjective Date of Service: 06/27/25 Interval History: Overall no new issues or complaints. No new reported bruising, bleeding, bleeding gums, no melena or hematuria. The patient is eager to be discharged, but understands that this depends on clinical stability of platelets and other ongoing medical issues Platelets have been stable over the past few days. Receivedx romiplostim yesterday. Clarified with Oncology; good for discharge from plt. standpoint tomorrow Close follow up with Oncology outpatient. Physical Exam 2 Exam: Exam: General: A&O x3, oriented to time place person and siutaion, comfortable, no pain Cardiac: S1, S2 auscultated with no S3/4, no MRG. Well perfused. Respiratory: Normal breath sounds auscultated throughout all lung zones, without wheezing, rales. Normal rate. GI/ : No abdominal pain on palpation, no masses or distentions. MSK: Normal ambulation without pain at bony prominences or musculature Neurological: Normal neurological examination on overview, without obvious CN II-XII abnormalities. Vital Signs: Vital Signs: Last Vital Signs Temp 97.5 F 06/27/25 11:20 Pulse 62 06/27/25 11:20 Resp 18 06/27/25 11:20 BP 134/80 06/27/25 11:20 Pulse Ox 98 06/27/25 11:20 O2 Del Method Room Air 06/27/25 11:20 O2 Flow Rate 2 06/22/25 15:10 BMI result Body Mass Index 26.6 Objective Data Active Medications Acetaminophen (Acetaminophen 325 Mg Tablet) 650 mg PO Q6H PRN PRN Reason: Pain, Mild 1-3,fever,headache Last Admin: 06/15/25 02:16 Dose: 650 mg Documented By: MONIK Allopurinol (Allopurinol 100 Mg Tablet) 100 mg PO DAILY [facility] Last Admin: 06/27/25 08:42 Dose: 100 mg Documented By: GWENDOLYN Amoxicillin/Clavulanate Potassium (Amoxicillin/Potassium Clav 875 Mg Tablet) 875 mg PO BID [facility] Last Admin: 06/27/25 08:41 Dose: 875 mg Documented By: GWENDOLYN Atorvastatin Calcium (Atorvastatin Calcium 40 Mg Tablet) 40 mg PO BEDTIME [facility] Last Admin: 06/26/25 22:15 Dose: 40 mg Documented By: RADHA Calcium Carbonate (Calcium Carbonate 750 Mg Tab.Chew) 750 mg PO Q4H PRN PRN Reason: Heartburn Dextrose (Dextrose 50 % 25 Gm/50 Ml Syringe) 25 gm IVPUSH Q15M PRN; Protocol PRN Reason: per Hypoglycemia Standing Ord. Empagliflozin (Empagliflozin 10 Mg Tablet) 10 mg PO DAILY [facility] Last Admin: 06/27/25 08:41 Dose: 10 mg Documented By: GWENDOLYN Furosemide (Furosemide 20 Mg Tablet) 20 mg PO BID@0900,1800 [facility]; Protocol Last Admin: 06/27/25 08:41 Dose: 20 mg Documented By: GWENDOLYN Glucose (Glucose Gel 15 Gm Gel..Gram.) 15 gm PO Q15M PRN; Protocol PRN Reason: per Hypoglycemia Standing Ord. Guaifenesin (Guaifenesin 200 Mg/10 Ml 10 Ml Liquid) 10 ml PO Q4H PRN PRN Reason: Cough Last Admin: 06/22/25 20:47 Dose: 10 ml Documented By: ARIAN Insulin Human Lispro (Insulin Lispro 100 Unit/Ml 3 Ml Vial) 0 unit SUBCUT QIDAS [facility]; Protocol Last Admin: 06/27/25 12:08 Dose: Not Given Documented By: GWENDOLYN Non-Admin Reason: No Insulin Coverage Magnesium Hydroxide (Milk Of Magnesia 30 Ml Oral.Susp) 30 ml PO DAILY PRN PRN Reason: Constipation Melatonin (Melatonin 3 Mg Tablet) 6 mg PO BEDTIME PRN PRN Reason: Insomnia Ondansetron HCl (Ondansetron Hcl 4 Mg/2 Ml Vial) 4 mg IVPUSH Q8H PRN PRN Reason: Nausea and Vomiting Polyethylene Glycol (Polyethylene Glycol 3350 17 Gm Powd.Pack) 17 gm PO DAILY PRN PRN Reason: Constipation Prednisone (Prednisone 20 Mg Tablet) 60 mg PO DAILY [facility] Last Admin: 06/27/25 08:41 Dose: 60 mg Documented By: GWENDOLYN Sacubitril/Valsartan (Sacubitril/Valsartan 49/51 1 Tab Tablet) 1 tab PO BID [facility]; Protocol On Hold: 06/21/25 23:01 Comment: low bp Last Admin: 06/21/25 20:54 Dose: 1 tab Documented By: DAMARIS Senna (Sennosides 8.6 Mg Tablet) 17.2 mg PO BEDTIME [facility] Last Admin: 06/26/25 22:16 Dose: Not Given Documented By: RADHA Non-Admin Reason: Patient Refused Sodium Bicarbonate (Sodium Bicarbonate 650 Mg Tablet) 650 mg PO BID [facility] Last Admin: 06/27/25 08:41 Dose: 650 mg Documented By: GWENDOLYN Sodium Chloride (0.9 % Sodium Chloride Flush 3 Ml Syringe) 3 ml IVFLUSH QSHIFT [facility] Last Admin: 06/27/25 08:42 Dose: 3 ml Documented By: GWENDOLYN Labs 06/27/25 06:04 06/27/25 06:04 Labs: Laboratory Results - last 24 hr 06/26/25 06/26/25 06/27/25 16:22 21:43 06:04 MCV 100.6 H MCH 32.6 MCHC 32.4 RDW 21.8 H Plt Count 11 L* MPV Not Reportable Immature Gran % (Auto) 1.6 H Neut % (Auto) 83.8 H Lymph % (Auto) 6.0 L [place] % (Auto) 8.3 Eos % (Auto) 0.1 Baso % (Auto) 0.2 Lymph # (Auto) 0.7 L [place] # (Auto) 1.0 Eos # (Auto) 0.0 Baso # (Auto) 0.0 Abs Immat Gran (auto) 0.19 H Absolute Neuts (auto) 10.0 H Absolute Nucleated RBC 0.000 Nucleated RBC % (auto) 0.0 Anion Gap 11 L Estim Creat Clear Calc 33.7 Estimated GFR 42 POC Glucose 256 H 253 H Random Glucose 139 H Calcium 9.0 06/27/25 06/27/25 07:10 11:25 MCV MCH MCHC RDW Plt Count MPV Immature Gran % (Auto) Neut % (Auto) Lymph % (Auto) [place] % (Auto) Eos % (Auto) Baso % (Auto) Lymph # (Auto) [place] # (Auto) Eos # (Auto) Baso # (Auto) Abs Immat Gran (auto) Absolute Neuts (auto) Absolute Nucleated RBC Nucleated RBC % (auto) Anion Gap Estim Creat Clear Calc Estimated GFR POC Glucose 123 H 177 H Random Glucose Calcium Assessment and Plan (1) CMML (chronic myelomonocytic leukemia): Status: Acute Assessment and Plan: Oncology following - input greatly appreciated. The patient is currently on Azacitidine, possible contributing to patient's presentation and admission with acute hypoxic respiratory failure 2/2 acute pneumonitis. Has been responing to steroids. Oncology/ Hematology currently following (2) Thrombocytopenia: Status: Acute Assessment and Plan: Prpogressively worsening plts during admission. 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 The patient has not responded to plt transfusion - likely will continue to be unhelpful if ITP. Has completed a 2 day course of IVIG and has subsequently been discontinued. Currently on IV steroids. Heme/Onc has administered Romiplostim. IF STABLE PLTs in 1-2 days, can consider DC home with close follow up (3) Heart failure with reduced ejection fraction: Status: Acute Assessment and Plan: HFrEf - RESOLVED BNP 894-->1044-->595 Negative 4 L Echo with moderately reduced LV ejection fraction 40-45% with grade 2 diastolic dysfunction Initially treated with IV Lasix and now on PO lasix 20 bid To continue Entresto, Jardiance and metoprolol. (4) NSTEMI (non-ST elevated myocardial infarction): Status: Acute Assessment and Plan: CAD, hx recent NSTEMI 08/2024, s/p RENE mid RCA: hold Plavix given thrombocytopenia continue metoprolol and atorvastatin (5) Acute kidney injury superimposed on CKD: Status: Acute Assessment and Plan: Resolved. Likely due to cardiorenal syndrome. (6) Atrial fibrillation with RVR: Status: Acute Assessment and Plan: Now NSR-hold Eliquis, continue metoprolol. (7) CAD (coronary artery disease): Status: Acute Assessment and Plan: CAD, hx recent NSTEMI 08/2024, s/p RENE mid RCA:hold Plavix. continue metoprolol and atorvastatin Plan Sepsis secondary to acute exacerbation of pneumonitis with acute hypoxic respiratory failure in the setting of immunosuppression from underlying CMML; chemotherapy reaction. WBC were as high as 54 but has steadily come down, presently 19K. chest CT: Bilateral multifocal airspace opacities and pleural effusions. Findings may represent sequelae of infection, inflammation, pneumonitis in the acute setting. Recommend follow-up evaluation to resolution with particular attention to the left upper lobe opacities, to exclude underlying neoplasm. Initial repeat CXR with worsening airspace opacities in both lower lung zones and small bilateral pleural effusions Last chest xray with improved aeration of bilateral lower lungs and tiny bilateral pleural effusions Was seen by pulmonary, was treated with Zosyn and vanco and later chaged to Augmentina nd will treat for total of 10 days. He was also on IV solumedrol now changed to Prednisone and will taper by 5 mg weekly per oncolgy recommendation. PLAN FOR DISCHARGE TOMORROW PENDING STABLE CBC AND PLTS AND IF ASYMPTOMATIC (BLEEDING DIATHESIS, BRUISING...ETC) Total time managing care of this patient today: 35 minutes. Quality Stroke Does the patient have a stroke diagnosis?: No Reason for No Anti-thrombotic by Day Two: Contraindicated (low PLT count ) VTE Prior VTE?: No VTE Risk Level:: Medical - moderate - high VTE Device Contraindication: N/A - Device Ordered VTE Drug Contraindication: Treatment Not Indicated
[2025-06-27 16:23] LABS: Glucose, Whole Blood 303 mg/dL (60-115)
--- NOTE | 2025-06-27 18:47 | PM.EVENT ---
Event Note Date of Service: 06/27/25 Event Note: called by RN for concern of SVT vs AF/RVR on telemetry in AF, irregularly irregular, rate 134-151 pt without any lightheadedness, palpitations, or chest pain will give metoprolol tartrate 5 mg x1 anticoagulation contraindcated by severe thrombocytopenia Time Spent With Patient Time: Total time managing care of this patient today ____ minutes.
--- NOTE | 2025-06-27 18:48 | PC.NURSE ---
PT IN RAPID AFIB UP TO 150S. PT ASYMPTOMATIC ALL OTHER VITALS WNL. PROVIDER CALLED TO BEDSIDE. EKG OBTAINED TO CONFIRM AFIB. 5MG OF METOPROLOL GIVEN IV PUSH. PT REMAINS ASYMPTOMATIC HR CURRENTLY 110S-130S PROVIDER AWARE
--- NOTE | 2025-06-27 18:49 | ECG_ITS ---
Test Reason : afib rr Blood Pressure : */* mmHG Vent. Rate : 127 BPM Atrial Rate : * BPM P-R Int : * ms QRS Dur : 92 ms QT Int : 328 ms P-R-T Axes : * 25 237 degrees QTcB Int : 476 ms Atrial fibrillation with rapid ventricular response Nonspecific ST and T wave abnormality Abnormal ECG When compared with ECG of 14-Jun-2025 22:47, Atrial fibrillation has replaced Sinus rhythm Nonspecific ST and T wave abnormality Present Referred By: Sonja Pickard Electronically Signed By: ARABELLA MINER
[2025-06-27 20:39] LABS: Glucose, Whole Blood 360 mg/dL (60-115)
[2025-06-28 04:00] VITALS: BP 140/69; PULSE 57; RESP 18; TEMP 36.9; O2SAT 96
[2025-06-28 07:31] VITALS: BP 159/74; PULSE 59; RESP 19; TEMP 36.6; O2SAT 98
[2025-06-28 08:52] LABS: MANUAL DIFF FLAG NO
[2025-06-28 08:58] LABS: Hematocrit 33.1 % (42.0-52.0); Hemoglobin 10.8 g/dl (14.0-18.0); Imm Gran Abs Auto 0.18 X10*3/uL (0.00-0.03); Imm Gran Pct Auto 1.3 % (0.0-0.4); Lymphocytes Absolute Auto 1.1 X10*3/uL (1.2-4.9); Mean Corpuscular HGB Conc 32.6 g/dl (31.0-36.0); Mean Corpuscular Hemoglobin 32.6 pg (27.0-33.0); Mean Corpuscular Volume 100.0 fL (80.0-98.0); NRBC Abs Auto 0.000 X10*3/uL (0.0-0.012); NRBC Pct Auto 0.0 /100WBC (0.0-0.2); Red Blood Count 3.31 X10*6/uL (4.60-5.80); White Blood Count 14.0 X10*3/uL (4.8-10.8)
[2025-06-28 09:18] LABS: Platelet Count 11 X10*3/uL (160-400)
[2025-06-28 09:21] VITALS: BP 159/74
[2025-06-28] MEDS: 0.9 % Sodium Chloride Flush 3 ML SYRINGE IVFLUSH ×2 (09:21→16:26)
[2025-06-28 09:28] LABS: Anion Gap 14 (12-20); Blood Urea Nitrogen 57 mg/dL (9-16); Calcium 8.7 mg/dL (8.4-10.2); Carbon Dioxide 26 mmol/L (22-29); Chloride 105 mmol/L (96-108); Creatinine Clr Calc Pharmacy 34.3; Estimated Glomerular Filt Rate 43; Magnesium 2.0 mg/dL (1.6-2.6); Potassium 3.7 mmol/L (3.3-5.1); Sodium 141 mmol/L (135-145)
[2025-06-28 11:15] VITALS: BP 120/69; PULSE 63; RESP 19; TEMP 36.2; O2SAT 97
[2025-06-28 11:15] LABS: Glucose, Whole Blood 145 mg/dL (60-115)
[2025-06-28 11:44] LABS: Glucose, Whole Blood 255 mg/dL (60-115)
--- NOTE | 2025-06-28 13:47 | PM.HEMONCPN ---
Medical Summary - Medical Summary Date of Service: 06/28/25 Chief complaint: CMML and thrombocytopenia Primary Care Provider: Kobe Christian MD Medical Summary: DIAGNOSIS: CMML. Business Process Coordinator Utilized?: No - Taiwanese Speaking Interval History Interval history: Patient is doing okay, bit frustrated about his blood counts. He is no longer on oxygen. He denies any skin bruising but he reports chronic history of nosebleeds especially when he blows his nose. No hematochezia or melena. No fever or chills. No chest pain or shortness of breath at this time. He underwent emergent brain imaging since he appeared lethargic last evening. He denies any complaints at this time. Review of Systems - Constitutional Reports anorexia - Eyes Reports blurry vision - ENT Reports system reviewed and no additional complaints, except as documented - Cardiovascular Reports shortness of breath - Respiratory Reports dyspnea on exertion - Gastrointestinal Reports constipation - Genitourinary Genitourinary: Reports urinary frequency - Musculoskeletal Reports muscle weakness - Neurologic Reports system reviewed and no additional complaints, except as documented, Reports weakness, Denies memory loss, Denies seizure-like activity [facility] Medical History: Medical History (Last Reviewed 06/23/25 @ 12:12 by Cherrie Acevedo, PT) Asbestosis Atrial fibrillation Atrial fibrillation with RVR Chronic cough CKD stage 3 secondary to diabetes COPD exacerbation Diabetes Heart failure with reduced ejection fraction MDS/MPN (myelodysplastic/myeloproliferative neoplasms) Prediabetes Renal cyst Sacrococcygeal pilonidal cyst Sciatica Thrombocytopenia Functional capacity: uses cane/walker Surgical History: Surgical History (Last Reviewed 06/23/25 @ 12:12 by Cherrie Acevedo, PT) History of colonoscopy Onset Date: ~10/27/16 Hx of cardiac cath S/P cardiac cath Stented coronary artery Social History: Social History (Last Reviewed 06/15/25 @ 01:23 by RICHIE Courtney) Living Situation History: Household Members: Unknown / Unable to asses Housing: Unknown / Unable to asses Do you presently have visiting nurse or other home services: No Tobacco History: Patient Tobacco Use Status: Former Tobacco user Second Hand Smoke Exposure: No Advance Directives: Advance Directives Date on File: 09/13/24 Occupation Assessmet: service: No Current occupational status: retired Current occupational status: disabled - Travel History Ebola Risk: Travel/Contact With Anyone From Affected Area/s: No Has Patient Experienced Ebola Symptoms: No Home Medications and Allergies Current Medications: Current Medications Acetaminophen (Acetaminophen 325 Mg Tablet) 650 mg PO Q6H PRN PRN Reason: Pain, Mild 1-3,fever,headache Last Admin: 06/15/25 02:16 Dose: 650 mg Allopurinol (Allopurinol 100 Mg Tablet) 100 mg PO DAILY [facility] Last Admin: 06/28/25 09:21 Dose: 100 mg Amoxicillin/Clavulanate Potassium (Amoxicillin/Potassium Clav 875 Mg Tablet) 875 mg PO BID [facility] Last Admin: 06/28/25 09:21 Dose: 875 mg Atorvastatin Calcium (Atorvastatin Calcium 40 Mg Tablet) 40 mg PO BEDTIME [facility] Last Admin: 06/27/25 20:05 Dose: 40 mg Calcium Carbonate (Calcium Carbonate 750 Mg Tab.Chew) 750 mg PO Q4H PRN PRN Reason: Heartburn Dextrose (Dextrose 50 % 25 Gm/50 Ml Syringe) 25 gm IVPUSH Q15M PRN; Protocol PRN Reason: per Hypoglycemia Standing Ord. Empagliflozin (Empagliflozin 10 Mg Tablet) 10 mg PO DAILY [facility] Last Admin: 06/28/25 09:21 Dose: 10 mg Furosemide (Furosemide 20 Mg Tablet) 20 mg PO BID@0900,1800 [facility]; Protocol Last Admin: 06/28/25 09:21 Dose: 20 mg Glucose (Glucose Gel 15 Gm Gel..Gram.) 15 gm PO Q15M PRN; Protocol PRN Reason: per Hypoglycemia Standing Ord. Guaifenesin (Guaifenesin 200 Mg/10 Ml 10 Ml Liquid) 10 ml PO Q4H PRN PRN Reason: Cough Last Admin: 06/22/25 20:47 Dose: 10 ml Insulin Human Lispro (Insulin Lispro 100 Unit/Ml 3 Ml Vial) 0 unit SUBCUT QIDACHS [facility]; Protocol Last Admin: 06/28/25 11:59 Dose: 4 unit Magnesium Hydroxide (Milk Of Magnesia 30 Ml Oral.Susp) 30 ml PO DAILY PRN PRN Reason: Constipation Melatonin (Melatonin 3 Mg Tablet) 6 mg PO BEDTIME PRN PRN Reason: Insomnia Ondansetron HCl (Ondansetron Hcl 4 Mg/2 Ml Vial) 4 mg IVPUSH Q8H PRN PRN Reason: Nausea and Vomiting Polyethylene Glycol (Polyethylene Glycol 3350 17 Gm Powd.Pack) 17 gm PO DAILY PRN PRN Reason: Constipation Prednisone (Prednisone 20 Mg Tablet) 60 mg PO DAILY [facility] Last Admin: 06/28/25 09:21 Dose: 60 mg Sacubitril/Valsartan (Sacubitril/Valsartan 49/51 1 Tab Tablet) 1 tab PO BID [facility]; Protocol On Hold: 06/21/25 23:01 Comment: low bp Last Admin: 06/21/25 20:54 Dose: 1 tab Senna (Sennosides 8.6 Mg Tablet) 17.2 mg PO BEDTIME [facility] Last Admin: 06/27/25 20:05 Dose: 17.2 mg Sodium Bicarbonate (Sodium Bicarbonate 650 Mg Tablet) 650 mg PO BID [facility] Last Admin: 06/28/25 09:21 Dose: 650 mg Sodium Chloride (0.9 % Sodium Chloride Flush 3 Ml Syringe) 3 ml IVFLUSH QSHIFT [facility] Last Admin: 06/28/25 09:21 Dose: 3 ml Home Medications ?Medication ?Instructions ?Recorded ?Confirmed ?Type fluticasone furoate 200 1 inh inhalation DAILY PRN 06/15/25 06/15/25 History mcg/actuation blister powder for Shortness Of Breath Or Wheezing inhalation (Arnuity Ellipta) tramadol 50 mg tablet 50 mg PO TID PRN moderate pain 06/15/25 06/15/25 History Allergies Allergy/AdvReac Type Severity Reaction Status Date / Time No Known Allergies Allergy Verified 06/14/25 22:39 Exam Vital signs: Vital Signs Temp 97.2 F 06/28/25 11:15 Pulse 63 06/28/25 11:15 Resp 19 06/28/25 11:15 BP 120/69 06/28/25 11:15 Pulse Ox 97 06/28/25 11:15 O2 Del Method Room Air 06/28/25 11:15 O2 Flow Rate 2 06/22/25 15:10 Intake & Output 06/27/25 06/28/25 06/28/25 18:59 06:59 18:59 Intake Total 1320 / 1320 Output Total 1200 / 1800 600 / 1800 Balance 120 / -480 -600 / -480 Urine Output (Average ml/kg/hr) 1.30 0.65 0.65 Intake: Intake, Oral Amount 1320 / 1320 Output: Output, Urine Amount 1200 / 1400 200 / 1400 Output, Urine Amount (Catheter) 400 / 400 Male External 400 / 400 Other: Breakfast % Eaten 75% Lunch % Eaten 75% Dinner % Eaten 100% Eating (Feeding) Ability Independent Number of Bowel Movements 2 Urine purewick Urine Color Yellow Yellow Last Bowel Movement 06/26/25 06/27/25 06/27/25 Stool Bedside Commode Stool Amount Large Stool Color Brown Stool Consistency Formed Weight 77.1 kg BMI result Body Mass Index 26.6 - Constitutional Present: no acute distress, mild distress, chronically ill appearing - Routine HEENT Exam Head: Present: atraumatic, normal inspection, normocephalic ENT: Present: normal oropharynx - Routine Neck Exam Present: full ROM - Routine Respiratory Exam Present: decreased breath sounds, rales. Absent: accessory muscle use, wheezes - Routine Cardiovascular Exam Cardiovascular: Present: RRR, S1, S2 - Routine Abdominal Exam Present: diminished bowel sounds - Routine Extremities Exam Present: full ROM Data - Labs CBC & Chem 7: 06/28/25 08:26 06/28/25 08:26 - Imaging Radiologist's impression: ITS Impressions Chest X-Ray 06/18/25 07:10 IMPRESSION: Worsening airspace opacities in both lower lung zones with improvement in the upper lung zones. Small bilateral pleural effusions. Electronically signed by: Ezio Alexander MD 06/18/2025 07:58 AM EDT RP Chest X-Ray 06/19/25 07:20 IMPRESSION: Improved aeration of the bilateral lower lung zones. Tiny bilateral pleural effusions. Electronically signed by: Ezio Alexander MD 06/19/2025 07:37 AM EDT RP Head CT 06/24/25 12:23 IMPRESSION: No acute intracranial abnormality. Mild generalized atrophy and chronic small vessel changes. Electronically signed by: Carson Mcclellan MD 06/24/2025 01:40 PM EDT RP Assessment and Plan Patient Active problem list reviewed?: Yes (1) CMML (chronic myelomonocytic leukemia) Status: Acute Assessment and plan: This is a 80 year old male with CMML status post 1st cycle 5 azacitidine who has been admitted for hypoxic respiratory failure. CT Chest from 06/15: Bilateral multifocal airspace opacities and pleural effusions. Findings may represent sequelae of infection, inflammation, pneumonitis in the acute setting. Recommend follow-up evaluation to resolution with particular attention to the left upper lobe opacities, to exclude underlying neoplasm. He was empirically treated with broad-spectrum antibiotics, IV Solu-Medrol as well as diuresed for mild CHF. His oxygenation has improved and he is no longer oxygen dependent. Chest x-ray performed 06/22/2025 shows resolution of pneumonia. He may have had acute pneumonitis like reaction to chemotherapy, 5 azacitidine. He responded to steroids. 2. Persistent thrombocytopenia secondary to underlying bone marrow malignancy. He also has splenomegaly which could be contributing. He has not responded to multiple units of platelet transfusion. No evidence of DIC or myelophthisic process. ITP is a possibility. He is on prednisone 60 mg p.o. daily. He will be treated with IVIG 1 gram/kilos for 1-2 days to improve platelet counts as he continues to drop. He received blood and platelet transfusion yesterday. In spite of prednisone and IVIG, platelet counts have not increased and he remains at 10. Romiplostim 1 mcg/kilos, 77 mcg to be administered today. Monitor daily labs. Consider discharge in the next day or 2 if counts are stable. - Time Spent With Patient Time Spent with Patient (in minutes): 15
--- NOTE | 2025-06-28 13:59 | P.DS_ITS ---
DS: Providers Provider Date of Service: 06/15/25 Date of admission: 06/15/25 00:04 Date of discharge: 06/28/25 Primary care physician: Kobe Christian MD Consults: 06/15/25 01:36 Consult to Pulmonology Routine Consulting Provider: [facility] Reason for consultation: acute hypoxic respiratory failure, new to chemo for CMML, MDSDUo nebs prn 06/15/25 01:50 Consult to Case Management Routine Comment: son req review for help for pt at home 06/15/25 07:39 Consult to Hematology / Oncology Routine Consulting Provider: [facility]/Hematology Reason for consultation: cmml ,thrombocytopenia Has provider been notified: No 06/15/25 07:40 Consult to Nephrology Routine Consulting Provider: [facility] Reason for consultation: akion ckd , AGMA Has provider been notified: No 06/17/25 06:18 Consult to Hematology / Oncology Routine Consulting Provider: [facility] Oncology/Hematology Reason for consultation: cmml 06/19/25 07:52 Consult to Cardiology Routine Consulting Provider: [facility] Reason for consultation: CHF & Afib Attending physician on discharge: Sonja Pickard DS: Diagnosis Discharge Diagnosis (1) CMML (chronic myelomonocytic leukemia): Status: Acute (2) Atrial fibrillation with RVR: Status: Acute (3) Heart failure with reduced ejection fraction: Status: Acute (4) CKD stage 3 secondary to diabetes: Status: Acute (5) Acute ITP: Status: Acute DS: Summary Hospital Course Hospital Course: Admission HPI Attending physician on admission: Nia Kuo Chief Complaint: Weakness, SOB Patient is an 80-year-old male with past medical history hypertension, hyperlipidemia, gout, atrial fibrillation on Eliquis, prediabetes, chronic kidney disease stage 3, sciatica, asbestosis, COPD, prostate cancer with prostatectomy, non STEMI, CAD,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 Per pt's son at bedside, pt was not altered or lethargic. EMS arrived and noted patient's pulse ox was 65% on room air,. Patient received a non-rebreather and sats improved to the mid 90s., within the last week patient did start the new chemotherapeutic agent within the last week. Patient has been off his Eliquis due to low platelet count. Pt does meet criteria for sepsis with noted hypoxia, fever 103.8, and leukocytosis (aware of MDS cancer DX). Chest x-ray done in the ED noted multi focal bilateral nonspecific consolidation highly suspicious for pneumonia. Aspiration also a possibility. Reviewed this with patient and son and they denied that patient is having issues with eating or taking medications or drinking fluids. Patient has a nonproductive cough. BNP also elevated, 894 with known hx of HFrEF 45-50%. Last complete echo 09/10/24. Pt currently in NSR, no complaints of chest pain. Temp max 103.8. BC X2 drawn. No tachycardia or hypotension. Patient received 2 g of cefepime IV. Patient also started on methylprednisolone 125 mg IV x1. Patient also received 2 g magnesium IV x1. Patient currently on 5 L nasal cannula, alert and orientated but pale in presentation. H&H 9.3 and 29.1. Platelets 24,000. White count 35. VBG , 7.38 , 28, 70 17 on oxygen. Patient does not use oxygen at home currently. Patient was not happy about being admitted to the hospital. Patient's son who is also the healthcare proxy is at his side. Reassurance provided. Patient is agreeable to staying. Son is also caring for patient's spouse who has Alzheimer's disease and is part of the pace program. Son is open to talking with case management to plan for current and future needs as son will be returning to work as a teacher once the summer ends. hospital course: 79-year-old male with a past medical history significant for AFib on Eliquis, CAD, NSTEMI 09/12 s/p RENE mid RCA on Plavix, prediabtes , and bronchiectasis secondary to asbestosis, who presented to the ED today due to shortness of breath and weakness for the past few days and admitted and treated for sepsis, pneumonitis, acute hypoxic respriatory failure,; Heart failure, TALA,and thrmbocytepenia. Probelms Sepsis secondary to acute exacerbation of pneumonitis with acute hypoxic respiratory failure in the setting of immunosuppression from underlying CMML; chemotherapy reaction. WBC were as high as 54 but has steadily come down, presently 19K. chest CT: Bilateral multifocal airspace opacities and pleural effusions. Findings may represent sequelae of infection, inflammation, p neumonitis in the acute setting. Recommend follow-up evaluation to resolution with particular attention to the left upper lobe opacities, to exclude underlying neoplasm. Initial repeat CXR with worsening airspace opacities in both lower lung zones and small bilateral pleural effusions Last chest xray with improved aeration of bilateral lower lungs and tiny bilateral pleural effusions Was seen by pulmonary, was treated with Zosyn and vanco and later chaged to Augmentina nd will treat for total of 10 days. He was also on IV solumedrol now changed to Prednisone and will sudhakar by 5 mg weekly per oncolgy recommendation. HFrEf BNP 894-->1044-->595 today Negative 4 L Echo with moderately reduced LV ejection fraction 40-45% with grade 2 diastolic dysfunction Initially treated with IV Lasix and no on PO To continue Entresto, Jardiance and metoprolol. 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 Etiology of thrombocytopenia seems to be due to acute ITP. Patient received prednisone taper, IVIG course and romiplostim for management. Plts remain stable at around 8-14 without evidence of new bleeding, bruising, melena, hematuria 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 follow bmp., Creatine is within his baseline Acute lactic acidosis: not due to sepsis, likely from combination of acute illness, hypoxia AFib : now NSR-hold Eliquis ,continue metoprolol. CAD, hx recent NSTEMI 08/2024, s/p RENE mid RCA:hold Plavix. continue metoprolol and atorvastatin hyperglycemia likley due to steriods use: check poc. Hba1c levels 5.4 diabetic diet SSI PT is recommending home with services Status at Discharge Functional status at discharge: independent ambulation Overall status at discharge: patient is back to baseline Time Attestation Total time managing care of this patient today: 45 mintues. Discharge Coordination Time (in mins): 15 Quality: Safe Use of Opioids Does Pt have an Active Cancer Diagnosis on the Problem List?: No Quality: Stroke Does the patient have a stroke diagnosis?: No Physical Exam Exam: Exam: General: A&O x3, o riented to time pl [place] person and dane taion, comfortable , no pain Cardiac : S1, S2 auscultat ed with no S3/4, n o MRG. Well perfus ed. Respiratory: Normal breath soun ds auscultated thr oughout all lung z ones, without whee zing, rales. Pearl l rate. GI/ : N o abdominal pain o n palpation, no ma sses or distention s. MSK: Normal am bulation without p ain at bony promin ences or musculatu re Neurological: Normal neurologica l examination on o [place], without o bvious CN II-XII a bnormalities. Vital Signs: Vital Signs: Last Vital Signs Temp 97.2 F 06/28/25 11:15 Pulse 63 06/28/25 11:15 Resp 19 06/28/25 11:15 BP 120/69 06/28/25 11:15 Pulse Ox 97 06/28/25 11:15 O2 Del Method Room Air 06/28/25 11:15 O2 Flow Rate 2 06/22/25 15:10 BMI result Body Mass Index 26.6 DS: Data Data Completed and Pending Labs on day of discharge: Laboratory Results - last 24 hr 06/27/25 06/27/25 06/28/25 16:18 20:36 07:50 WBC RBC Hgb Hct MCV MCH MCHC RDW Plt Count MPV Immature Gran % (Auto) Neut % (Auto) Lymph % (Auto) Hart % (Auto) Eos % (Auto) Baso % (Auto) Lymph # (Auto) Hart # (Auto) Eos # (Auto) Baso # (Auto) Abs Immat Gran (auto) Absolute Neuts (auto) Absolute Nucleated RBC Nucleated RBC % (auto) Sodium Potassium Chloride Carbon Dioxide Anion Gap BUN Creatinine Estim Creat Clear Calc Estimated GFR POC Glucose 303 H 360 H* 145 H Random Glucose Calcium Magnesium 06/28/25 06/28/25 08:26 11:39 WBC 14.0 H RBC 3.31 L Hgb 10.8 L Hct 33.1 L MCV 100.0 H MCH 32.6 MCHC 32.6 RDW 21.0 H Plt Count 11 L* MPV Not Reportable Immature Gran % (Auto) 1.3 H Neut % (Auto) 84.8 H Lymph % (Auto) 7.9 L Hart % (Auto) 5.7 Eos % (Auto) 0.0 Baso % (Auto) 0.3 Lymph # (Auto) 1.1 L Hart # (Auto) 0.8 Eos # (Auto) 0.0 Baso # (Auto) 0.0 Abs Immat Gran (auto) 0.18 H Absolute Neuts (auto) 11.9 H Absolute Nucleated RBC 0.000 Nucleated RBC % (auto) 0.0 Sodium 141 Potassium 3.7 Chloride 105 Carbon Dioxide 26 Anion Gap 14 BUN 57 H Creatinine 1.55 H Estim Creat Clear Calc 34.3 Estimated GFR 43 POC Glucose 255 H Random Glucose 187 H Calcium 8.7 Magnesium 2.0 Discharge Plan Discharge Anticipated Discharge Date/Time: 06/23/25 14:40 Patient Disposition: Home Health Service Discharge Diagnosis: Acute hypoxic resp failure, pneumonia, chf, thrombocytopenia Referrals: [facility] [Outside] - 1 Day Referral Note: [facility] PT, A NURSE WILL REACH OUT TO YOU FOR START OF CARE TOMORROW 06/24. Marianela Heck MD [Physician, Hematology & Oncology] - 1 Week Referral Note: PLEASE FOLLOW UP W/HEMATOLOGY Kobe Christian MD [Primary Care Provider, Internal Medicine] - 1 Week Discharge Medications: New furosemide 20 mg Tablet 20 mg PO BID@0900,1800 Qty: 180 0RF Protocol: Hold for SBP< HOLD for SBP < : 90 Entresto 49-51 mg Tablet 1 tab PO BID Qty: 90 0RF Protocol: Hold for SBP< HOLD for SBP < : 90 prednisone 20 mg Tablet 60 mg PO DAILY 4 Days Qty: 12 0RF insulin glargine [Basaglar KwikPen U-100 Insulin] 100 unit/mL (3 mL) insulin pen 12 unit subcut QPM 7 Days Qty: 0.84 0RF Continued atorvastatin 40 mg tablet 40 mg PO BEDTIME Qty: 90 3RF metoprolol tartrate 25 mg tablet 25 mg PO BID Qty: 180 3RF Protocol: Hold for SBP/HR < HOLD for SBP < : 90 HOLD for HR < : 60 allopurinol 100 mg Tablet 100 mg PO DAILY Qty: 30 1RF ondansetron 8 mg Tablet,Disintegrating 8 mg PO Q8H PRN (Reason: Nausea And Vomiting) Qty: 30 3RF tramadol 50 mg tablet 50 mg PO TID PRN (Reason: moderate pain) Arnuity Ellipta 200 mcg/actuation blister with device 1 inh inhalation DAILY PRN (Reason: Shortness Of Breath Or Wheezing) Jardiance 10 mg tablet 10 mg PO DAILY Qty: 30 5RF Discharge Orders: Discharge Order (Routine); Ordered 06/28/25 Ordered By: Sonja Pickard Diet: Advance to usual diet Activity on Discharge: As tolerated Stand Alone Forms: Patient Portal Discharge page Print Language: Japanese Care Plan Goals: recovery from acute hospitalization for pneumonitisi, chf, low platlets Health Concerns: CMML, pneumonitis, CHF, ITP Plan of Treatment: Follow up with Dr. Heck outpatient you will need labs work done on outpatient basis Assessment: See above
--- NOTE | 2025-06-28 14:47 | P.F2F_ITS ---
Service Date Service Date: 06/28/25 Encounter Date of encounter: 06/28/25 Reasons for Services Signs and symptoms assessed: ITP, CMML CHF exacerbation shelter stay in hospital with generalised weakness and maliase. Afib RVR type II DM with iatrigenic hyperglycemia in the setting of steroid use for ITP Reason for assisted: administration of IV, SQ, or IM injection, diabetic teaching, monitoring of unstable blood sugar, medication management and teach disease management Reason for physical therapy: home safety and mobility, therapeutic exercises, gait/transfer training, assess need for DME and ADL training Reason for occupational therapy: home safety and mobility, therapeutic exercises, gait/transfer training and assess need for DME MD Overseeing Care: Sonja Pickard Homebound: Leaving the home is medically contraindicated at this time without the asist of a device and/or another person due th the listed conditions above and below. Reason homebound: unsteady gait / fall risk, leg weakness, poor balance / fall risk and weakness related to hospital stay Certification: Based on the above findings, I certify that this patient is confined to the home and needs intermittent assisted care, physical therapy and/or speech therapy, or continues to need occupational therapy. The patient is under my care, and I have initiated the establishment of the plan of care. The patient will be followed by a physician who will periodically review the plan of care. Time Spent With Patient Time: Total time managing care of this patient today 20 minutes.
--- NOTE | 2025-06-28 15:08 | MHC.CM.PN ---
PT TO DC HOME TODAY WITH [facility] TO TRANSPORT
[2025-06-28 16:00] VITALS: BP 162/69; PULSE 60; RESP 18; TEMP 36.4; O2SAT 94
[2025-06-28 16:18] LABS: Glucose, Whole Blood 307 mg/dL (60-115)
[2025-06-28 17:01] VITALS: BP 162/69
== END 2025-06-28 18:26 | disposition home health service (06) | DRG 871 ==
LOC: HO.ED 06-15 → HO.EDOVER 06-15 02:05 → HO.IMC 06-15 02:05
PROVIDERS: Hospitalist; Internal Medicine; Nurse Practitioner Family; Student in an Organized Health Care Education/Training Program; Admitting Provider Student in an Organized Health Care Education/Training Program; Emergency Provider Emergency Medicine; PCP Internal Medicine; Visit Provider Hospitalist
DX: A41.9 Sepsis, unspecified organism (principal); J96.01 Acute respiratory failure with hypoxia; I13.0 Hypertensive heart and chronic kidney disease with heart failure and stage 1 through stage 4 chronic kidney disease, or unspecified chronic kidney disease; I50.22 Chronic systolic (congestive) heart failure; N17.9 Acute kidney failure, unspecified; C93.10 Chronic myelomonocytic leukemia not having achieved remission; C94.6 Myelodysplastic disease, not elsewhere classified; Z94.81 Bone marrow transplant status; J47.1 Bronchiectasis with (acute) exacerbation; E87.21 Acute metabolic acidosis; D61.818 Other pancytopenia; D84.81 Immunodeficiency due to conditions classified elsewhere; D69.3 Immune thrombocytopenic purpura; I47.10 Supraventricular tachycardia, unspecified; I25.10 Atherosclerotic heart disease of native coronary artery without angina pectoris; J61 Pneumoconiosis due to asbestos and other mineral fibers; J98.4 Other disorders of lung; I48.0 Paroxysmal atrial fibrillation; N18.30 Chronic kidney disease, stage 3 unspecified; I25.5 Ischemic cardiomyopathy; E11.65 Type 2 diabetes mellitus with hyperglycemia; E86.0 Dehydration; J70.2 Acute drug-induced interstitial lung disorders; E11.22 Type 2 diabetes mellitus with diabetic chronic kidney disease; Z85.46 Personal history of malignant neoplasm of prostate; T45.1X5A Adverse effect of antineoplastic and immunosuppressive drugs, initial encounter; Z95.5 Presence of coronary angioplasty implant and graft; Z20.822 Contact with and (suspected) exposure to COVID-19; Z79.4 Long term (current) use of insulin; Z79.899 Other long term (current) drug therapy
CPT/HCPCS: 36415; 70450; 71045; 71250; 80048; 80053; 80076; 80162; 80202; 81001; 82010; 82565; 82784; 82803; 82947; 83036; 83605; 83615; 83735; 83880; 84100; 84484; 84520; 84550; 85007; 85025; 85027; 85384; 85610; 85730; 86334; 86850; 86900; 86901; 86923; 87040; 87637; 87640; 87641; 93005; 93306; 97116; 97162; 97530; 99285; J0616; J0692; J0696; J1160; J1200; J1271; J1569; J1938; J2543; J2802; J2919; J3374; J3475; J7120; P9016; P9073

== ENCOUNTER → 2025-06-14 22:38 | Outpatient (BNV) | payer MEDICARE, BC, SELFPAY | PROVIDERS: Admitting Provider Student in an Organized Health Care Education/Training Program; Emergency Provider Emergency Medicine; PCP Internal Medicine; Visit Provider Internal Medicine Cardiovascular Disease | DX: R94.31 Abnormal electrocardiogram [ECG] [EKG] (principal); R06.02 Shortness of breath | CPT/HCPCS: 93010 ==

== ENCOUNTER → 2025-06-14 22:39 | Outpatient (BNV) | payer MEDICARE, BC, SELFPAY | PROVIDERS: Admitting Provider Student in an Organized Health Care Education/Training Program; Emergency Provider Emergency Medicine; PCP Internal Medicine; Visit Provider Radiology Diagnostic Radiology | DX: R09.02 Hypoxemia (principal) | CPT/HCPCS: 71045 ==

== ENCOUNTER 2025-06-15 00:04 | Outpatient (BNV) | payer MEDICARE, BC, SELFPAY | END 2025-06-27 18:49 | PROVIDERS: Admitting Provider Student in an Organized Health Care Education/Training Program; Emergency Provider Emergency Medicine; PCP Internal Medicine; Visit Provider Internal Medicine | DX: I48.91 Unspecified atrial fibrillation (principal) | CPT/HCPCS: 93010 ==

== ENCOUNTER 2025-06-15 00:04 | Outpatient (BNV) | payer MEDICARE, BC, SELFPAY | END 2025-06-15 00:59 | PROVIDERS: Admitting Provider Student in an Organized Health Care Education/Training Program; Emergency Provider Emergency Medicine; PCP Internal Medicine; Visit Provider Radiology Diagnostic Radiology | DX: J96.01 Acute respiratory failure with hypoxia (principal) | CPT/HCPCS: 71250 ==

== ENCOUNTER 2025-06-15 00:04 | Outpatient (BNV) | payer MEDICARE, BC, SELFPAY | END 2025-06-16 17:00 | PROVIDERS: Admitting Provider Student in an Organized Health Care Education/Training Program; Emergency Provider Emergency Medicine; PCP Internal Medicine; Visit Provider Internal Medicine Cardiovascular Disease | DX: R06.02 Shortness of breath (principal) | CPT/HCPCS: 93306 ==

== ENCOUNTER 2025-06-15 00:04 | Outpatient (BNV) | payer MEDICARE, BC, SELFPAY | END 2025-06-24 12:23 | PROVIDERS: Admitting Provider Student in an Organized Health Care Education/Training Program; Emergency Provider Emergency Medicine; PCP Internal Medicine; Visit Provider Radiology Diagnostic Radiology | DX: R41.82 Altered mental status, unspecified (principal) | CPT/HCPCS: 70450 ==

== ENCOUNTER 2025-06-15 00:04 | Outpatient (BNV) | payer MEDICARE, BC, SELFPAY | END 2025-06-19 07:00 | PROVIDERS: Admitting Provider Student in an Organized Health Care Education/Training Program; Emergency Provider Emergency Medicine; PCP Internal Medicine; Visit Provider Radiology Diagnostic Radiology | DX: R09.02 Hypoxemia (principal) | CPT/HCPCS: 71045 ==

== ENCOUNTER 2025-06-15 00:04 | Outpatient (BNV) | payer MEDICARE, BC, SELFPAY | END 2025-06-18 07:00 | PROVIDERS: Admitting Provider Student in an Organized Health Care Education/Training Program; Emergency Provider Emergency Medicine; PCP Internal Medicine; Visit Provider Radiology Diagnostic Radiology | DX: J90 Pleural effusion, not elsewhere classified (principal) | CPT/HCPCS: 71045 ==

== ENCOUNTER → 2025-06-15 00:04 | Outpatient (BNV) | payer MEDICARE, BC, SELFPAY | PROVIDERS: Admitting Provider Student in an Organized Health Care Education/Training Program; Emergency Provider Emergency Medicine; PCP Internal Medicine; Visit Provider Nurse Practitioner Family | DX: J47.1 Bronchiectasis with (acute) exacerbation (principal); A41.9 Sepsis, unspecified organism; R09.02 Hypoxemia | CPT/HCPCS: 99223; 99232; 99499 ==

== ENCOUNTER → 2025-06-15 00:04 | Outpatient (BNV) | payer MEDICARE, BC, SELFPAY | PROVIDERS: Admitting Provider Student in an Organized Health Care Education/Training Program; Emergency Provider Emergency Medicine; PCP Internal Medicine; Visit Provider Internal Medicine Cardiovascular Disease | DX: I50.20 Unspecified systolic (congestive) heart failure (principal); I48.91 Unspecified atrial fibrillation; I25.10 Atherosclerotic heart disease of native coronary artery without angina pectoris | CPT/HCPCS: 99222 ==

== ENCOUNTER → 2025-06-15 00:04 | Outpatient (BNV) | payer MEDICARE, BC, SELFPAY | PROVIDERS: Admitting Provider Student in an Organized Health Care Education/Training Program; Emergency Provider Emergency Medicine; PCP Internal Medicine; Visit Provider Internal Medicine | DX: C93.10 Chronic myelomonocytic leukemia not having achieved remission (principal); J96.01 Acute respiratory failure with hypoxia | CPT/HCPCS: 99222; 99232; G2211 ==

== ENCOUNTER → 2025-06-15 00:04 | Outpatient (BNV) | payer MEDICARE, BC, SELFPAY | PROVIDERS: Admitting Provider Student in an Organized Health Care Education/Training Program; Emergency Provider Emergency Medicine; PCP Internal Medicine; Visit Provider Nurse Practitioner Family | DX: N18.31 Chronic kidney disease, stage 3a (principal); E87.20 Acidosis, unspecified | CPT/HCPCS: 99222; 99231 ==

== ENCOUNTER → 2025-06-15 00:04 | Outpatient (BNV) | payer MEDICARE, BC, SELFPAY | PROVIDERS: Admitting Provider Student in an Organized Health Care Education/Training Program; Emergency Provider Emergency Medicine; PCP Internal Medicine; Visit Provider Internal Medicine Pulmonary Disease | DX: R09.02 Hypoxemia (principal); J18.8 Other pneumonia, unspecified organism; J96.01 Acute respiratory failure with hypoxia; I50.20 Unspecified systolic (congestive) heart failure | CPT/HCPCS: 99233 ==

== ENCOUNTER 2025-07-03 15:22 | Outpatient (AMB) | payer MEDICARE, BC, SELFPAY ==
[2025-07-03 15:36] VITALS: BP 126/72; PULSE 51; TEMP 36.2; O2SAT 99; BMI 20.8
--- NOTE | 2025-07-03 15:36 | A.OFFPC_ITS ---
Vital Signs 07/03/25 15:36 Height 5 ft 7 in Weight 133 lb BMI 20.8 BP 126/72 Blood Pressure Location Rt brachial Position Sitting Pulse 51 Pulse Source Pulse Oximeter Temp 97.1 F Temp Source Temporal Artery Scan Pulse Oximetry (%) 99 Oxygen Delivery Method Room Air Intake Visit Reasons: D/C'd 06/28 - 2 wks in hosp for pneumonia Bill Adjuster Required: No Accompanied by: Son Allergies No Known Allergies Allergy (Verified 07/03/25 15:36) Tobacco use date assessed: 07/03/25 Fall risk assessment: No Falls in past year Last assessed Fall Risk: 07/03/25 Dental Screening Dental Screen Date: 07/03/25 Did you have a dental visit in the last 12 months?: No Did you have a dental problem in the last 6 months where you did not have access to dental care?: No HPI HPI Comments History of Present Illness Details 80-year-old male with history of CMML/MD S-MPN overlap, type 2 diabetes, atrial fibrillation, hyperlipidemia, coronary artery disease s/p NSTEMI 2023 s/p RENE RCA, COPD presenting for hospital follow up Hospitalized 06/15-06/28/2025- sepsis secondary to acute exacerbation of pneumonitis with acute hypoxic respiratory failure in the setting of immunosuppression from underlying CMML; chemotherapy reaction. WBC were as high as 54. chest CT: Bilateral multifocal airspace opacities and pleural effusions. Multiple consults. treated with Zosyn and vanco and later changed to Augmentin. He was also on IV solumedrol then changed to Prednisone which continues to be tapered by oncology. Glucose was running high. Previously on metformin jardiance. Metformin not restarted given TALA/CKD. Discharged on inusline 12 units pm and continued jardiance. CV: CHF, Afib, CAD. Echo with moderately reduced LV ejection fraction 40-45% with grade 2 diastolic dysfunction. AC on hold, continues lasix, lopressor, entresto Heme/Onc: Following closely for recent diagnosis 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 on new chemotherapeutic agent (vidaza azacitidine) started 06/06/2025. 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 Prednisone taper Renal: TALA on CKD. At discharge creatinine at baseline. Metformin had been stopped and he is continuing to hold. Ultimately prednisone will be dc'd and he can likely stop insulin and continue with oral medications whether metformin or alternate. A1C has been quite good ROS +fatigue, residual cough no interval fevers PHYSICAL EXAM: GENERAL: Alert and oriented x 3. NAD EYES: EOMI. HENT: Moist mucous membranes. No scleral icterus. No cervical lymphadenopathy. LUNGS: Clear to auscultation bilaterally. CARDIOVASCULAR: Regular rate and rhythm.No JVD. ABDOMEN: Soft, non-tender +bs EXTREMITIES: No edema. Non-tender. SKIN: Pallor, senile purpura. Warm. NEUROLOGIC: No focal neurological deficits. CN II-XII grossly intact PSYCHIATRIC: Cooperative. 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 Father No problems noted. Social History Household Members: Unknown / Unable to assess Housing: Unknown / Unable to assess Do you presently have visiting nurse or other home services: No Alcohol intake: current Alcohol intake frequency: holidays/special occasions only Patient Tobacco Use Status: Former Tobacco user e-Cigarette/Vaping Use: Former Use Second Hand Smoke Exposure: No Advance Directives Date on File: 09/13/24 service: No Current occupational status: retired and disabled Cognitive needs: Yes (cane) Hearing needs: No Vision needs: Yes (reading glasses) Questionnaire PHQ-9 Over the last 2 weeks, how often have you been bothered by any of the following problems? 1. Little interest or pleasure in doing things: not at all 2. Feeling down, depressed, or hopeless: nearly every day 3. Trouble falling or staying asleep, or sleeping too much: not at all 4. Feeling tired or having little energy: not at all 5. Poor appetite or overeating: not at all 6. Feeling bad about yourself - or that you are a failure or have let yourself or your family down: not at all 7. Trouble concentrating on things, such as reading the newspaper or watching television: not at all 8. Moving or speaking so slowly that other people could have noticed. Or the opposite - being so fidgety or restless that you have been moving around a lot more than usual: not at all 9. Thoughts that you would be better off or of hurting yourself in some way: not at all Total score: 3 Depression Screening Interpretation: Negative Depression Screening Done: Yes 70837 - PHQ-9 Billing: Yes Source: Developed by Drs. Ezio Dueñas, Sussy Mcpherson, Brendan Mckeon and colleagues, with an educational aicha from [employer]. Thrive Questionnaire Date Thrive assessed: 07/03/25 I am a: Patient Within the past 12 months, did the food you bought not last and you didn't have the money to get more?: Never true Within the past 12 months, did you worry whether your food would run out before you got money to buy more?: Never true Do you have trouble paying for medicines?: No Do you have trouble getting transportation to medical appointments?: No Do you have trouble paying your heating and electricity bill?: No Do you have trouble taking care of your child, family member or friend?: No Do you have trouble with day-to-day activities such as bathing, preparing meals, shopping, managing finances, etc.?: No Are you currently unemployed and looking for a job?: No Are you interested in more education?: No THRIVE Score: 0 AUDIT C Alcohol Use Questionnaire (AUDIT-C) 1. How often do you have a drink containing alcohol?: Never 3. How often do you have six or more drinks on one occasion?: Never Total Score: 0 CHACE-7 AMB Questionnaire CHACE-7 Date CHACE - 7 assessed: 07/03/25 Feeling nervous, anxious, or on edge: 3 = Nearly every day Not being able to stop or control worryin = Not at all Worrying too much about different things: 0 = Not at all Trouble relaxin = Not at all Being so restless that it is hard to sit still: 0 = Not at all Becoming easily annoyed or irritable: 0 = Not at all Feeling afraid as if something awful might happen: 0 = Not at all Total CHACE-7 score (0-4 normal; 5-9 mild; 10-14 moderate; 15-21 severe): 3 Source: Developed by Drs. Ezio Dueñas, Sussy Mcpherson, Brendan Mckeon and colleagues, with an educational aicha from [employer]. Physical exam (Primary Care) Vital Signs: Last Vital Signs Temp 97.1 F 07/03/25 15:36 Pulse 51 07/03/25 15:36 BP 126/72 07/03/25 15:36 Pulse Ox 99 07/03/25 15:36 Oxygen Delivery Method Room Air 07/03/25 15:36 BMI result Body Mass Index 20.8 Tobacco/Smoking Status: Tobacco use Status Tobacco use date assessed 07/03/25 07/03/25 15:37 Patient Tobacco Use Status Former Tobacco user 07/03/25 15:37 e-Cigarette/Vaping Use Former Use 07/03/25 15:37 PHQ-9: PHQ-9 Score PHQ-9: Total score 3 07/05/25 11:05 Depression Screening Interpretation: Negative Thrive Assessment: Date of Thrive Assessment Date Thrive assessed 07/03/25 07/03/25 15:37 Coding Level of Care Code TCM High MDM <= 14 days Diagnoses Hospital discharge follow-up Z09 Multifocal pneumonia J18.8 MDS/MPN (myelodysplastic/myeloproliferative neoplasms) C94.6 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 C93.10 Leukemia Active/Remission status: without remission Type 2 diabetes mellitus with stage 3 chronic kidney disease, with long-term current use of insulin, unspecified whether stage 3a or 3b CKD E11.22; N18.30; Z79.4 Chronic kidney disease stage: stage 3 (moderate) Chronic kidney disease stage 3 subtype: unspecified whether 3a or 3b Diabetes mellitus complication detail: with chronic kidney disease Diabetes mellitus complication status: with kidney complications Diabetes mellitus ferry terminal agent insulin use: with ferry terminal agent use Diabetes mellitus type: type 2 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 Paroxysmal atrial fibrillation I48.0 Atrial fibrillation type: paroxysmal Additional Codes PHQ-9 - 63462 - PHQ-9 Billing: Yes ([id number]) Assessment & Plan Assessment & Plan (1) Hospital discharge follow-up: Code(s): Z09 - Encounter for follow-up examination after completed treatment for conditions other than malignant neoplasm Category: Medical (2) Multifocal pneumonia: Code(s): J18.8 - Other pneumonia, unspecified organism Category: Medical (3) MDS/MPN (myelodysplastic/myeloproliferative neoplasms): Code(s): C94.6 - Myelodysplastic disease, not elsewhere classified Category: Medical (4) CMML (chronic myelomonocytic leukemia): Code(s): C93.10 - 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 Category: Medical Qualifiers: Leukemia Active/Remission status: without remission Qualified Code(s): C93.10 - 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 (5) Diabetes: Code(s): E11.9 - Type 2 diabetes mellitus without complications Category: Medical Qualifiers: Chronic kidney disease stage: stage 3 (moderate) Chronic kidney disease stage 3 subtype: unspecified whether 3a or 3b Diabetes mellitus complication detail: with chronic kidney disease Diabetes mellitus complication status: with kidney complications Diabetes mellitus senior care insulin use: with senior care use Diabetes mellitus type: type 2 Qualified Code(s): E11.22 - Type 2 diabetes mellitus with diabetic chronic kidney disease; N18.30 - Chronic kidney disease, stage 3 unspecified; Z79.4 - MCFP (current) use of insulin (6) Acute ITP: Code(s): 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 Category: Medical (7) Atrial fibrillation: Code(s): I48.91 - Unspecified atrial fibrillation Category: Medical Qualifiers: Atrial fibrillation type: paroxysmal Qualified Code(s): I48.0 - Paroxysmal atrial fibrillation Plan Hospital discharge follow up Hospital course reviewed. Medications reviewed and reconciled DM at goal. continue insulin, jardiance. Can likely dc insulin once off prednisone to be evaluated with next A1C. Testing supplies sent CKD-nephrology follow up Heme/Onc-continue close follow up CHF-continue cardiology follow up Orders: Orders Hemoglobin A1c 2 Months E11.9 - Type 2 diabetes mellitus without complications Medications: New pen needle, diabetic once daily 100 ea 3RF E11.9 - Type 2 diabetes mellitus without complications Changed From blood-glucose meter (Accu-Chek Guide Glucose Meter) 3 times a day or As Directed 1 ea 0RF E11.9 - Type 2 diabetes mellitus without complications To Accu-Chek Guide Glucose Meter (blood-glucose meter) 3 times a day or As Directed 1 ea 0RF NS E11.9 - Type 2 diabetes mellitus without complications From blood sugar diagnostic (Accu-Chek Guide test strips) 3 times per day or as directed 100 ea 1RF E11.9 - Type 2 diabetes mellitus without complications To Accu-Chek Guide test strips (blood sugar diagnostic) 3 times per day or as directed 300 ea 3RF NS E11.9 - Type 2 diabetes mellitus without complications From lancets (Accu-Chek Softclix Lancets) 3 times a day or As Directed 100 ea 0RF E11.9 - Type 2 diabetes mellitus without complications To Accu-Chek Softclix Lancets (lancets) 3 times a day 300 ea 3RF NS E11.9 - Type 2 diabetes mellitus without complications
--- OUTSIDE RECORDS SUMMARY | 2025-07-03 15:47 | XMS_ITS | Clinical Summary ---
Author Organization [facility] Facility Address [address] [place] [id number] Care Team Providers Care Dry Starch Supervisor Name Role Phone Mode Thompson MD Primary Care Provider [phone] Allergies No known active allergies Medications metFORMIN [...] age to complete this topic Insurance Medicare [facility] Medicare BCBS [place] Care Teams Dry Starch Supervisor Relationship Specialty Start Date End Date Mode Thompson MD [address] [place] [address] [address] [place], [place] PCP - General 11/30/20
--- OUTSIDE RECORDS SUMMARY | 2025-07-03 15:47 | XMS_ITS | Patient Health Record ---
Author Organization [facility] Address [address] [place] [address] Care Team Providers Care Live Truck Technician Name Role Phone Donna (RETIRED) Mode VAZQUEZ Primary Care Provide r Unavailable Ezio Mendez Unavailable [phone] Reason For Referral No Information Medications Medication SIG (Take, Route, Frequency, Duration) Notes Start Date End Date Status metFORMIN HCl 500 MG 1 tablet with meals Orally Twice a day Active Aspirin Adult Low Dose 81 MG 1 tablet Orally Once a day A ctive Problems Problem Type SNOMED Code ICD Code Onset Dates Problem Status W/U Status Risk Notes Problem [id number] Encounter for screening for malignant neoplasm of colon (Z12.11) Active confirmed Problem Encounter for screening for malignant neoplasm of rectum (Z12.12) Active confirmed Problem 603613375 Elevated liver enzymes (R74.8) Active confirmed Problem 26387236 Iron excess (E83.19) Active confirmed Plan Of Treatment Pending Test Test Name Order Date [id number]-1-[id number] (A1A) 08/07/2016 MITOCHONDRIAL AB 08/07/2016 SMOOTH MUSCLE ANTIBODIES 08/07/2016 HEMOCHROMATOSIS (C282Y) 08/07/2016 FLUOR. ANTINUCLEAR AB SCREEN (KERWIN) 07/21 Future Test Test Name Order Date COLONOSCOPY 07/29/2016 Insurance Providers Payer Name Payer Address Payer Phone Subscriber Number Group Number Insured Name Patient Relationship to Insured Coverage Start Date Coverage End Date MEDICARE OF [place] [address] [facility] [place] [address] [id number] DWAYNE GARNER Self - patient is the insured HMO [employer] [address] [place] [address] [id number] DWAYNE GARNER Self - patient is the insured Medical (General) History Medical History History ICD Code Prostate cancer in 2008--surgery as luceroo w Denies [place],CVA,Lung disease,renal disease NIDDM [place] colonosc[place] [address] Elaine vargas Surgical History Surgery Date(Month/Year) Radical prosatatectomy in 2006 Tonsillectomy
== END 2025-07-03 16:46 | disposition home or self-care (01) ==
LOC: HO.HMCHD 15:23
PROVIDERS: PCP Internal Medicine; Visit Provider Internal Medicine
DX: I48.0 Paroxysmal atrial fibrillation (principal); C93.10 Chronic myelomonocytic leukemia not having achieved remission; C94.6 Myelodysplastic disease, not elsewhere classified; E11.22 Type 2 diabetes mellitus with diabetic chronic kidney disease; N18.30 Chronic kidney disease, stage 3 unspecified; Z79.4 Long term (current) use of insulin; D69.3 Immune thrombocytopenic purpura; Z09 Encounter for follow-up examination after completed treatment for conditions other than malignant neoplasm; J18.8 Other pneumonia, unspecified organism

== ENCOUNTER → 2025-07-03 15:22 | Outpatient (BNVA) | payer MEDICARE, BC, SELFPAY | PROVIDERS: PCP Internal Medicine; Visit Provider Internal Medicine | DX: Z09 Encounter for follow-up examination after completed treatment for conditions other than malignant neoplasm (principal); J18.8 Other pneumonia, unspecified organism; C94.6 Myelodysplastic disease, not elsewhere classified; C93.10 Chronic myelomonocytic leukemia not having achieved remission; E11.22 Type 2 diabetes mellitus with diabetic chronic kidney disease; N18.30 Chronic kidney disease, stage 3 unspecified; Z79.4 Long term (current) use of insulin; D69.3 Immune thrombocytopenic purpura; I48.0 Paroxysmal atrial fibrillation | CPT/HCPCS: 96127; 99495 ==

== ENCOUNTER 2025-07-11 14:16 | Outpatient (AMB) | payer MEDICARE, BC, SELFPAY ==
--- OUTSIDE RECORDS SUMMARY | 2025-07-11 14:19 | XMS_ITS | Clinical Summary ---
Author Organization [facility] Facility Address [address] [place] [address] Care Team Providers Care Signal Mechanic Name Role Phone Mode Thompson MD Primary Care Provider [phone] Allergies No known active allergies Medications metFORMIN [...] topic Insurance Medicare [facility] Medicare [place]BS [place] Care Teams Signal Mechanic Relationship Specialty Start Date End Date Mode Thompson MD [address] [place] [address] [address] [place], [place] PCP - General 11/30/20
--- OUTSIDE RECORDS SUMMARY | 2025-07-11 14:19 | XMS_ITS | Patient Health Record ---
Author Organization [facility] Address [address] [place] [address] Care Team Providers Care Curling Machine Operator Name Role Phone Donna (RETIRED) Mode VAZQUEZ Primary Care Provide r Unavailable Ezio Mendez Unavailable [phone] Reason For Referral No Information Medications Medication SIG (Take, Route, Frequency, Duration) Notes Start Date End Date Status metFORMIN HCl 500 MG 1 tablet with meals Orally Twice a day Active Aspirin Adult Low Dose 81 MG 1 tablet Orally Once a day A ctive Problems Problem Type SNOMED Code ICD Code Onset Dates Problem Status W/U Status Risk Notes Problem [id number] Encounter for screening for malignant neoplasm of colon (Z12.11) Active confirmed Problem Encounter for screening for malignant neoplasm of rectum (Z12.12) Active confirmed Problem 218958028 Elevated liver enzymes (R74.8) Active confirmed Problem 79524383 Iron excess (E83.19) Active confirmed Plan Of Treatment Pending Test Test Name Order Date [id number]-1-[id number] (A1A) 08/07/2016 MITOCHONDRIAL AB 08/07/2016 SMOOTH MUSCLE ANTIBODIES 08/07/2016 HEMOCHROMATOSIS (C282Y) 08/07/2016 FLUOR. ANTINUCLEAR AB SCREEN (KERWIN) 07/21 Future Test Test Name Order Date COLONOSCOPY 07/29/2016 Insurance Providers Payer Name Payer Address Payer Phone Subscriber Number Group Number Insured Name Patient Relationship to Insured Coverage Start Date Coverage End Date MED[place]ARE OF [place] [address] [place] [address] [id number] DWAYNE GARNER Self - patient is the insured HMO [employer] CLAIM[employer] [address] [place] [address] [id number] DWAYNE GARNER Self - patient is the insured Medical (General) History Medical History History ICD Code Prostate cancer in 2008--surgery as luc[place] w Denies [place],CVA,Lung disease,renal disease NIDDM [place] [address] Elaine vargas Surgical History Surgery Date(Month/Year) Radical prosatatectomy in 2006 Tonsillectomy
--- NOTE | 2025-07-11 14:24 | HO.NEPHOV_ITS ---
Vital Signs 07/11/25 14:29 Height 5 ft 7 in Weight 136 lb 2 oz BMI 21.3 BP 110/50 L Blood Pressure Location Lt brachial Position Sitting Pulse 52 Pulse Source Pulse Oximeter Pulse Oximetry (%) 99 Oxygen Delivery Method Room Air Intake Visit Reasons: 2mon follow-up w/labs-Conf Senior Research Executive Required: No Accompanied by: Son Allergies No Known Allergies Allergy (Verified 07/11/25 12:00) HPI Comments Details: Ace in follow-up of his chronic kidney disease. 80 y/o male with a medical history of HTN, gout, afib, prediabetes, CKD3, COPD, asbestosis, prostate CA s/p prostatectomy, NSTEMI, CAD, HFrEF, recent dx of CML MDS/MPN, s/p bone marrow transplant. He does not have any dysuria, hematuria with micturition. He notes urinary frequency since taking lasix, reports his oncologist Dr Heck just discontinued today. He reports sugars are well controlled. He does not have any flank pain, night sweats, weight loss or edema. He follows up with PCP regularly. He denies chest pain, shortness of breath, nausea, vomiting, diarrhea. He does not take anti-inflammatory medications. His blood pressure is well controlled. He was recently in the hospital from 06/15/25- 06/28/25 with acute hypoxia requiring supplemental O2. He had received CML treatment through his oncologist on 06/09-06/13, [address] chest demonstrated multifocal infiltrates. He was started on empiric antibiotics and also treated with high-dose steroids for presumed pneumonitis secondary to 5 azacitidine. He had echocardiogram, found to have stable cardiomyopathy. He was diuresed and seen by Cardiology. He had rate controlled paroxysmal atrial fibrillation. He received multiple units of platelet and blood transfusion and treatment for his thrombocytopenia with IVIG and a dose of romiplostim. His renal function remained at baseline throughout his hospitalization. Routine blood work today shows baseline, stable renal function. Pt reports he is feeling better today than he has been. No complaints/concerns other than urinary frequency, which he anticipates will improve since lasix was d/c'd this a.m. 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 Father No problems noted. Social History Household Members: Unknown / Unable to assess Housing: Unknown / Unable to assess Do you presently have visiting nurse or other home services: No Alcohol intake: current Alcohol intake frequency: holidays/special occasions only Patient Tobacco Use Status: Former Tobacco user e-Cigarette/Vaping Use: Former Use Second Hand Smoke Exposure: No Advance Directives Date on File: 09/13/24 service: No Current occupational status: retired and disabled Cognitive needs: Yes (cane) Hearing needs: No Vision needs: Yes (reading glasses) Review of Systems Const All systems reviewed & are unremarkable except as noted in HPI and below Physical Exam Vital Signs: Last Vital Signs Pulse 52 07/11/25 14:29 BP 110/50 L 07/11/25 14:29 Pulse Ox 99 07/11/25 14:29 Oxygen Delivery Method Room Air 07/11/25 14:29 BMI result Body Mass Index 21.3 Const General: comfortable, no acute distress and alert Neck Neck: Yes no JVD Resp Effort & Inspection: normal respiratory effort and able to speak in complete sentences Auscultation: clear to auscultation bilaterally Cardio Rate: regular rate Rhythm: regular rhythm Heart sounds: S1 normal heart sound present and S2 normal heart sound present GI Palpation (GI): Soft to palpation and nontender General: Yes no CVA tenderness Back/Spine/Pelvis Back: no CVA tenderness Skin Rashes: no rashes Extrem General: No edema Results Reviewed Nephrology Results: Hgb, (14.0-18.0) 13.0 g/dl L 07/11/25 WBC, (4.8-10.8) 7.6 X10*3/uL 07/11/25 Plt Count, (160-400) 152 X10*3/uL L Δ 07/11/25 Sodium, (135-145) 143 mmol/L 07/11/25 Potassium, (3.3-5.1) 3.9 mmol/L 07/11/25 Chloride, (96-108) 110 mmol/L H 07/11/25 Carbon Dioxide, (22-29) 24 mmol/L 07/11/25 BUN, (9-16) 54 mg/dL H 07/11/25 Creatinine, (0.5-1.4) 1.44 mg/dL H 07/11/25 Calcium, (8.4-10.2) 8.4 mg/dL 07/11/25 Assessment & Plan Assessment & Plan Plan Ace has CKD stage 3 likely from vascular disease and age related loss of renal function. 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 His serum creatinine is stable over the last several months. His WBC count was normal today. He is on allopurinol 100mg PO daily. He takes Jardiance 10mg daily. He should maintain good hydration and minimize salt intake. F/U labs ordered. All his and sons questions were answered. Orders: Orders Basic Metabolic Panel 6 Weeks N18.30 - Chronic kidney disease, stage 3 unspecified Coding Level of Care Code Est Pt Level 4 (06425)
[2025-07-11 14:29] VITALS: BP 110/50; PULSE 52; O2SAT 99; BMI 21.3
== END 2025-07-11 14:49 | disposition home or self-care (01) ==
PROVIDERS: PCP Internal Medicine; Visit Provider Nurse Practitioner Family
DX: N18.30 Chronic kidney disease, stage 3 unspecified (principal)
CPT/HCPCS: 99214

== ENCOUNTER → 2025-07-11 14:16 | Outpatient (BNVA) | payer MEDICARE, BC, SELFPAY | PROVIDERS: PCP Internal Medicine; Visit Provider Internal Medicine Nephrology | DX: I12.9 Hypertensive chronic kidney disease with stage 1 through stage 4 chronic kidney disease, or unspecified chronic kidney disease (principal); N18.30 Chronic kidney disease, stage 3 unspecified | CPT/HCPCS: 99212 ==

== ENCOUNTER → 2025-07-12 23:59 | Outpatient (BNV) | payer MEDICARE, BC, SELFPAY | PROVIDERS: PCP Internal Medicine; Referring Provider Internal Medicine; Visit Provider Internal Medicine | DX: J96.01 Acute respiratory failure with hypoxia (principal); C93.10 Chronic myelomonocytic leukemia not having achieved remission; N17.9 Acute kidney failure, unspecified | CPT/HCPCS: G0180 ==

== ENCOUNTER 2025-07-19 11:41 | Inpatient (IN) | payer MEDICARE, BC, SELFPAY ==
[2025-07-19] VITALS (9 sets, daily range): BP systolic 118–139; BP diastolic 58–65; PULSE 62–83; RESP 16–18; TEMP 36.3–38.7; O2SAT 88–100; BMI 31.5
--- NOTE | ~2025-07-19 | CT_ITS ---
CLINICAL HISTORY: Hypoxia, fever CT chest without contrast Comparison: CT/REG/SR - CT CHEST WO IV CON - 06/15/25 01:[address]/SR - CT CHEST WO IV CON - 11/20/24 19:59 EST Findings: The heart is normal size. Calcification of the coronary vasculature. The visualized thyroid and mediastinum are unremarkable. Small left pleural effusion is present as before. Mild right pleural thickening, as before. Multiple, predominantly right-sided calcified pleural plaques are present. Moderate bibasilar airspace opacity, increased from the prior. Previously seen bilateral ground-glass pulmonary opacities have decreased. Visualized portions of the upper abdomen demonstrate a small amount of perihepatic ascites. The bones are intact. IMPRESSION: 1. Increased bibasilar pneumonia. Partial resolution of previously seen diffuse bilateral pneumonia. 2. Asbestos related pleural disease. 3. Coronary artery disease. 4. Small amount of perihepatic ascites. This document has been electronically signed by: Brenda Naqvi MD on 07/19/2025 15:49:20
--- NOTE | ~2025-07-19 | XR_ITS ---
CLINICAL HISTORY: weakness 1 view chest x-ray Comparison: CR - XR CHEST 1V - 06/22/25 08:35 EDT CR/SR - XR CHEST 1 VIEW - 06/19/25 07:22 EDT Findings: No consolidation or effusion. Normal size heart. No acute fracture. IMPRESSION: 1. No acute findings. This document has been electronically signed by: Brenda Naqvi MD on 07/19/2025 14:01:04
--- NOTE | 2025-07-19 11:49 | ECG_ITS ---
Test Reason : weakness Blood Pressure : */* mmHG Vent. Rate : 70 BPM Atrial Rate : 70 BPM P-R Int : 150 ms QRS Dur : 80 ms QT Int : 382 ms P-R-T Axes : 51 28 61 degrees QTcB Int : 412 ms Sinus rhythm with marked sinus arrhythmia Otherwise normal ECG When compared with ECG of 27-Jun-2025 18:49, Sinus rhythm has replaced Atrial fibrillation Vent. rate has decreased by [address] no longer depressed in Inferior leads ST no longer depressed in Anterolateral leads Nonspecific T wave abnormality no longer evident in Lateral leads Referred By: Ortega Weber Electronically Signed By: ARABELLA MINER
--- NOTE | 2025-07-19 11:50 | ED.GENADULT ---
HPI - General Adult General Chief complaint: Weakness Stated complaint: fever low oxygen Time Seen by Provider: 07/19/25 12:20 Source: patient and family (Son) Mode of arrival: ambulatory Limitations: no limitations History of Present Illness ED Provider: DR. Brady HPI narrative: 80-year-old male PMHx HTN, HLD, AFib on Eliquis, prediabetic, CKD 3, asbestosis, COPD, prostate cancer s/p prostatectomy, CAD, CML, presented with his son after found to be hypoxic on room air 89%, patient normally do not use supplemental oxygen at home, patient feels generalized weakness with no energy. No nausea, no vomiting, no abdominal pain, last bowel movement was yesterday and was normal, no dysuria, no frequency urination patient wear an adult diaper, patient brought in by his son found to be febrile in the emergency department hypoxic on room air of 87% that is improved with 2 L of oxygen via nasal cannula that improved his oxygenation to 98%. Patient otherwise declined any coughing, no shortness of breath. Related Data Home Medications ?Medication ?Instructions ?Recorded ?Confirmed fluticasone furoate 200 1 inh inhalation DAILY PRN 06/15/25 07/18/25 mcg/actuation blister powder for Shortness Of Breath Or Wheezing inhalation (Arnuity Ellipta) apixaban 2.5 mg tablet (Eliquis) 2.5 mg PO BID 07/11/25 07/18/25 Previous Rx's ?Medication ?Instructions ?Recorded atorvastatin 40 mg tablet 40 mg PO BEDTIME #90 tabs 12/05/24 metoprolol tartrate 25 mg tablet 25 mg PO BID #180 tabs 12/05/24 empagliflozin 10 mg tablet 10 mg PO DAILY #30 tabs 04/18/25 (Jardiance) sacubitril 49 mg-valsartan 51 mg 1 tab PO BID #90 tabs 06/23/25 tablet (Entresto) insulin glargine 100 unit/mL (3 12 unit (0.12 mL) subcut QPM 7 06/28/25 mL) subcutaneous pen (Basaglar days #0.84 mL KwikPen U-100 Insulin) Accu-Chek Guide Glucose Meter #1 ea 07/03/25 (blood-glucose meter) Accu-Chek Guide test strips (blood #300 ea 07/03/25 sugar diagnostic) Accu-Chek Softclix Lancets #300 ea 07/03/25 (lancets) pen needle, diabetic 31 gauge x #100 ea 07/03/2502/02 prednisone 10 mg tablets in a dose See Rx Instructions .Route 07/03/25 pack .COMPLEX #15.5 tabs allopurinol 100 mg tablet 100 mg PO DAILY #30 tabs 07/16/25 Allergies Allergy/AdvReac Type Severity Reaction Status Date / Time No Known Allergies Allergy Verified 07/19/25 11:49 Review of Systems Review of Systems: All other systems are reviewed and are negative Constitutional: Reports as per HPI and Reports no additional constitutional complaints Eyes: Reports as per HPI and Reports no additional eye complaints Reports system reviewed and no additional complaints, except as documented Cardiovascular: Reports as per HPI and Reports no additional cardiovascular complaints Respiratory: Reports as per HPI and Reports no additional respiratory complaints Gastrointestinal: Reports as per HPI and Reports no additional gastrointestinal complaints Genitourinary: Reports no additional female genitourinary complaints Musculoskeletal: Reports no additional musculoskeletal complaints Skin/Breast: Reports system reviewed and no additional complaints, except as docu Psychiatric: Reports no additional psychiatric complaints Endocrine: Reports no additional endocrine complaints Hematologic/Lymphatic: Reports no additional hematologic/lymphatic complaints Allergic/Immunologic: Reports no additional allergic/immunologic complaints Reports system reviewed and no additional complaints, except as documented and Reports Abnormal speech present [facility] Past Medical History Medical History Hypoxia CKD (chronic kidney disease) stage 3, GFR 30-59 ml/min Heart failure with reduced ejection fraction Thrombocytopenia Diabetes 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 Father No problems noted. Social History Social History Household Members: Unknown / Unable to assess Housing: Unknown / Unable to assess Do you presently have visiting nurse or other home services: No Alcohol intake: current Alcohol intake frequency: holidays/special occasions only Patient Tobacco Use Status: Former Tobacco user Smoked in Last 30 Days: No e-Cigarette/Vaping Use: Former Use Second Hand Smoke Exposure: No Use of substances other than those prescribed or required for medical reasons: No Advance Directives: Yes Advance Directives on File: Yes Advance Directives Date on File: 09/13/24 service: No Current occupational status: retired and disabled Cognitive needs: Yes (cane) Hearing needs: No Vision needs: Yes (reading glasses) Physical Exam ED Vital Signs: Vital Signs - 24 hr 07/19/25 11:45 07/19/25 12:20 07/19/25 12:25 Temperature 99.0 F 101.7 F H Pulse Rate 83 Respiratory Rate 18 Blood Pressure 139/65 Pulse Oximetry 92 88 L 99 Oxygen Delivery Method Room Air Room Air Nasal Cannula Oxygen Flow Rate 2 07/19/25 14:05 07/19/25 15:27 07/19/25 15:35 Temperature 101.7 F H 99.6 F Pulse Rate 62 67 Respiratory Rate 16 16 Blood Pressure 118/60 Pulse Oximetry 99 98 Oxygen Delivery Method Nasal Cannula Nasal Cannula Oxygen Flow Rate 2 2 07/19/25 15:59 Temperature Pulse Rate 70 Respiratory Rate 16 Blood Pressure 128/58 L Pulse Oximetry 98 Oxygen Delivery Method Nasal Cannula Oxygen Flow Rate 2 BMI result Body Mass Index 31.5 Vital signs have been reviewed and appear to be correct. Blood pressure elevated. Heart rate normal. Respiratory rate normal. Temperature normal, 98% on 2 L of NC. Appearance: Alert. Oriented X3. No acute distress. Head: Normal external exam. Normocephalic. Atraumatic. No Landry signs noted. No raccoon eyes noted Eyes: PERRLA. EOMI. Conjunctiva and sclera normal. Eyelids normal. ENT: TM's Normal. Pharynx normal. Uvula midline. Moist mucous membranes. No trismus noted. No drooling noted. No muffled voice noted. Neck: Normal inspection. Neck supple. FROM. No adenopathy. Thyroid Normal. No meningeal signs. No neck mass noted. CVS: Normal heart rate and rhythm. Heart sound normal. No murmurs noted. Pulses normal throughout. Respiratory: No respiratory distress. Painless inspiration. Breath sounds normal. No wheezes/rales/rhonchi noted. Chest nontender. No accessory muscle usage noted or decreased air movement noted. Abdomen: Soft and nontender. Bowel sounds normal in all 4 quadrants. No distention noted. No organomegaly noted. No visible injury noted. Back: No CVA tenderness. Full range of motion noted. Skin: Skin warm and dry. Normal skin color. Normal skin turgor. No rashes/lesions/lacerations noted. Extremities: No lower extremity edema. Extremities exhibit normal range of motion. Extremities nontender. Neuro: Oriented X 3. Cranial nerve exam: II-XII are grossly intact No motor deficit. No sensory deficit. Reflexes normal. Course Course Course Narrative: RME, this is a rapid medical exam performed by Jaren Weber please refer to primary provider for complete H&P- 80-year-old male past medical history significant CML, myelodysplastic syndrome, chronic kidney disease, diabetes, her failure, coronary artery disease, ITP, recent admission for bronchiectasis presents for evaluation of weakness. The patient presents with his son who reports the patient has had increased weakness since he woke up this morning. The patient is unable to sit up on his own. Yesterday he felt well. His oxygen saturation at home was as low as 89%. His cough is unchanged from baseline. The patient denies any significant pains but endorses weakness. Plan for labs, chest x-ray Reevaluation(s) Reevaluation #1: Patient meets criteria for SIRS, CT chest confirmed bilateral basilar pneumonia. Patient received IV fluids/ceftriaxone, and doxycycline, will admit. Time: 16:08 Medications Administered Generic Name Dose Route Start Last Admin Trade Name Freq PRN Reason Stop Dose Admin Doxycycline Hyclate 100 mg/ 250 mls @ 166.67 mls/hr 07/19/25 14:41 07/19/25 15:20 Sodium Chloride IV 07/19/25 16:10 166.67 mls/hr ONCE ONE Administration Discontinued Medications Generic Name Dose Route Start Last Admin Trade Name Freq PRN Reason Stop Dose Admin Acetaminophen 975 mg 07/19/25 13:51 07/19/25 13:55 Acetaminophen 325 Mg Tablet PO 07/19/25 13:52 975 mg ONCE ONE Administration Ceftriaxone Sodium 1 gm 07/19/25 12:27 07/19/25 12:48 Ceftriaxone Sodium 1 Gm Vial IVPUSH 07/19/25 12:28 1 gm ONCE ONE Administration Lactated Ringer's 1,000 mls @ 999 mls/hr 07/19/25 12:30 07/19/25 15:20 Lr IV 07/19/25 13:30 Infused .Q1H1M RASHAD Infusion Lactated Ringer's 1,000 mls @ 999 mls/hr 07/19/25 12:30 07/19/25 15:20 Lr IV 07/19/25 13:30 Infused .Q1H1M RASHAD Infusion Medical Decision Making Differential Diagnosis Differential Diagnoses: The differential diagnosis associated with the presentation includes (Sepsis, pneumonia, pneumothorax, pleural effusion, UTI, cellulitis, electrolyte derangement, severe anemia.) Admission/Observation Consideration of admission/observation: Escalation of care including admission/observation considered Lab Data MDM Lab Attestation statement: I reviewed the patient's lab results. 07/19/25 12:08 07/19/25 12:08 Labs: Lab Results 07/19/25 07/19/25 07/19/25 Range/Units 12:08 12:27 12:41 WBC 10.1 (4.8-10.8) X10*3/uL RBC 3.82 L (4.60-5.80) X10*6/uL Hgb 12.0 L (14.0-18.0) g/dl Hct 37.8 L (42.0-52.0) % MCV 99.0 H (80.0-98.0) fL MCH 31.4 (27.0-33.0) pg MCHC 31.7 (31.0-36.0) g/dl RDW 18.7 H (11.0-16.0) % Plt Count 76 L (160-400) X10*3/uL MPV 12.4 (9.4-12.4) fL Immature Gran % (Auto) 1.4 H (0.0-0.4) % Neut % (Auto) 77.8 H (45-73) % Lymph % (Auto) 6.1 L (20-40) % Desha % (Auto) 13.8 H (2-11) % Eos % (Auto) 0.7 (0-4) % Baso % (Auto) 0.2 (0-2) % Lymph # (Auto) 0.6 L (1.2-4.9) X10*3/uL Desha # (Auto) 1.4 H (0.1-1.2) X10*3/uL Eos # (Auto) 0.1 (0.0-0.4) X10*3/uL Baso # (Auto) 0.0 (0.0-0.2) X10*3/uL Abs Immat Gran (auto) 0.14 H (0.00-0.03) X10*3/uL Absolute Neuts (auto) 7.8 (2.0-8.3) x10*3/uL Absolute Nucleated RBC 0.000 (0.0-0.012) X10*3/uL Nucleated RBC % (auto) 0.0 (0.0-0.2) /100WBC VBG pH (7.32-7.43) VBG pCO2 mmHg VBG pO2 mmHg VBG HCO3 (22-26) mmol/L VBG O2 Saturation % VBG Base Excess mmol/L Sodium 141 (135-145) mmol/L Potassium 3.9 (3.3-5.1) mmol/L Chloride 112 H (96-108) mmol/L Carbon Dioxide 21 L (22-29) mmol/L Anion Gap 12 (12-20) BUN 26 H (9-16) mg/dL Creatinine 1.25 (0.5-1.4) mg/dL Estim Creat Clear Calc 47.4 Estimated GFR 55 POC Glucose 131 H (60-115) mg/dL Random Glucose 143 H (60-115) mg/dL Lactic Acid 1.6 (0.5-2.0) mmol/L Calcium 8.1 L (8.4-10.2) mg/dL Total Bilirubin 0.8 (0.0-1.0) mg/dL AST 45 H (5-37) U/L ALT 50 H (0-40) U/L Alkaline Phosphatase 162 H (39-117) U/L B-Natriuretic Peptide 1245 H (<100) pg/mL Total Protein 6.2 L (6.5-8.0) g/dL Albumin 3.3 L (3.5-5.0) g/dL Lipase 70 (8-78) U/L Urine Color Urine Appearance Urine pH (5.0-9.0) Ur Specific [place] (1.005-1.025) Urine Protein (Neg-Trace) mg/dL Urine Glucose (UA) (Negative) mg/dL Urine Ketones (Negative) mg/dL Urine Blood (Negative) Urine Nitrite (Negative) Ur Leukocyte Esterase (Negative) Urine RBC (0-2) /HPF Urine WBC (0-5) /HPF Ur Squamous Epith Cells (0-2) /HPF Urine Bacteria (None Seen) Hyaline Casts (0-2) /LPF Influenza Type A (PCR) NEGATIVE (Negative) Influenza Type B (PCR) NEGATIVE (Negative) RSV RNA Qual (PCR) NEGATIVE (Negative) SARS-CoV-2 RNA (RT-PCR) NEGATIVE (Negative) Blood Type O Positive Antibody Screen NEGATIVE 07/19/25 07/19/25 Range/Units 12:52 13:34 WBC (4.8-10.8) X10*3/uL RBC (4.60-5.80) X10*6/uL Hgb (14.0-18.0) g/dl Hct (42.0-52.0) % MCV (80.0-98.0) fL MCH (27.0-33.0) pg MCHC (31.0-36.0) g/dl RDW (11.0-16.0) % Plt Count (160-400) X10*3/uL MPV (9.4-12.4) fL Immature Gran % (Auto) (0.0-0.4) % Neut % (Auto) (45-73) % Lymph % (Auto) (20-40) % Desha % (Auto) (2-11) % Eos % (Auto) (0-4) % Baso % (Auto) (0-2) % Lymph # (Auto) (1.2-4.9) X10*3/uL Desha # (Auto) (0.1-1.2) X10*3/uL Eos # (Auto) (0.0-0.4) X10*3/uL Baso # (Auto) (0.0-0.2) X10*3/uL Abs Immat Gran (auto) (0.00-0.03) X10*3/uL Absolute Neuts (auto) (2.0-8.3) x10*3/uL Absolute Nucleated RBC (0.0-0.012) X10*3/uL Nucleated RBC % (auto) (0.0-0.2) /100WBC VBG pH 7.43 (7.32-7.43) VBG pCO2 31 mmHg VBG pO2 180 mmHg VBG HCO3 21 L (22-26) mmol/L VBG O2 Saturation 99.0 % VBG Base Excess -2.0 mmol/L Sodium (135-145) mmol/L Potassium (3.3-5.1) mmol/L Chloride (96-108) mmol/L Carbon Dioxide (22-29) mmol/L Anion Gap (12-20) BUN (9-16) mg/dL Creatinine (0.5-1.4) mg/dL Estim Creat Clear Calc Estimated GFR POC Glucose (60-115) mg/dL Random Glucose (60-115) mg/dL Lactic Acid (0.5-2.0) mmol/L Calcium (8.4-10.2) mg/dL Total Bilirubin (0.0-1.0) mg/dL AST (5-37) U/L ALT (0-40) U/L Alkaline Phosphatase (39-117) U/L B-Natriuretic Peptide (<100) pg/mL Total Protein (6.5-8.0) g/dL Albumin (3.5-5.0) g/dL Lipase (8-78) U/L Urine Color Yellow Urine Appearance Clear Urine pH 5.5 (5.0-9.0) Ur Specific [place] 1.020 (1.005-1.025) Urine Protein Trace (Neg-Trace) mg/dL Urine Glucose (UA) >=1000 H (Negative) mg/dL Urine Ketones Negative (Negative) mg/dL Urine Blood Trace H (Negative) Urine Nitrite Negative (Negative) Ur Leukocyte Esterase Negative (Negative) Urine RBC 0-2 (0-2) /HPF Urine WBC 0-5 (0-5) /HPF Ur Squamous Epith Cells 0-2 (0-2) /HPF Urine Bacteria None Seen (None Seen) Hyaline Casts 0-2 (0-2) /LPF Influenza Type A (PCR) (Negative) Influenza Type B (PCR) (Negative) RSV RNA Qual (PCR) (Negative) SARS-CoV-2 RNA (RT-PCR) (Negative) Blood Type Antibody Screen Independent Interpretation I performed an independent interpretation of an: Plain X-Ray (Chest: No acute findings.) and CT Scan (Chest:1. Increased bibasilar pneumonia. Partial resolution of previously seen diffuse bilateral pneumonia. 2. Asbestos related pleural disease. 3. Coronary artery disease. 4. Small amount of perihepatic ascites.) Radiology Impression Discussion of test interpretation with radiology: I have reviewed the radiologist's reading. Critical Care Time Critical Care Time Critical Care Time: Yes Total Critical Care Time: 60 Attestation: The patient was critically ill with a high probability of imminent or life-threatening deterioration. I spent greater than 30 minutes of discontinuous time evaluating the patient, delivering critical care at the bedside, discussing evaluating data with consultants. Critical care time does not include time spent performing separately billable procedures or teaching. Time spent performing critical care was 60 minutes. Discharge Plan Discharge Clinical Impression: Pneumonia, Sepsis, Hypoxia Patient Disposition: Admitted As Inpatient Print Language: Congolese
--- OUTSIDE RECORDS SUMMARY | 2025-07-19 12:08 | XMS_ITS | Clinical Summary ---
Author Organization [facility] Facility Address [address] [place] [id number] Care Team Providers Care Relay Technician Name Role Phone Mode Thompson MD Primary Care Provider [phone] Allergies No known active allergies Medications metFORMIN [facility] [place] Care Teams Relay Technician Relationship Specialty Start Date End Date Mode Thompson MD [address] [place] [address] [address] [place], [place] PCP - General 11/30/20
--- OUTSIDE RECORDS SUMMARY | 2025-07-19 12:08 | XMS_ITS | Patient Health Record ---
Author Organization [facility] Address [address] [place] [address] Care Team Providers Care Hog Man Name Role Phone Donna (RETIRED) Mode VAZQUEZ Primary Care Provide r Unavailable Ezio Mendez Unavailable [phone] Reason For Referral No Information Medications Medication SIG (Take, Route, Frequency, Duration) Notes Start Date End Date Status metFORMIN HCl 500 MG 1 tablet with meals Orally Twice a day Active Aspirin Adult Low Dose 81 MG 1 tablet Orally Once a day A ctive Problems Problem Type SNOMED Code ICD Code Onset Dates Problem Status W/U Status Risk Notes Problem 113631516 Encounter for screening for malignant neoplasm of colon (Z12.11) Active confirmed Problem Screening for malignant neoplasm of rectum (134124582) Encounter for screening for malignant neoplasm of rectum (Z12.12) Active confirmed Problem 497496568 Elevated liver enzymes (R74.8) Active confirmed Problem 78787088 Iron excess (E83.19) Active confirmed Plan Of Treatment Pending Test Test Name Order Date [id number] (A1A) 08/07/2016 MITOCHONDRIAL AB 08/07/2016 SMOOTH MUSCLE ANTIBODIES 08/07/2016 HEMOCHROMATOSIS (C282Y) 08/07/2016 FLUOR. ANTINUCLEAR AB SCREEN (KERWIN) 07/21 Future Test Test Name Order Date COLONOSCOPY 07/29/2016 Insurance Providers Payer Name Payer Address Payer Phone Subscriber Number Group Number Insured Name Patient Relationship to Insured Coverage Start Date Coverage End Date MEDICARE OF [place] [address] [place] [address] [id number] DWAYNE GARNER Self - patient is the insured HMO [employer] [address] [place] [address] [id number] DWAYNE GARNER Self - patient is the insured Medical (General) History Medical History History ICD Code Prostate cancer in 2008--surgery as stephen carrasco Denies [place],CVA,Lung disease,renal disease NIDDM [place]osc[place] [address] Elaine vargas Surgical History Surgery Date(Month/Year) Radical prosatatectomy in 2006 Tonsillectomy
[2025-07-19 12:16] LABS: MANUAL DIFF FLAG NO
[2025-07-19 12:29] LABS: Hematocrit 37.8 % (42.0-52.0); Hemoglobin 12.0 g/dl (14.0-18.0); Imm Gran Abs Auto 0.14 X10*3/uL (0.00-0.03); Imm Gran Pct Auto 1.4 % (0.0-0.4); Lymphocytes Absolute Auto 0.6 X10*3/uL (1.2-4.9); Mean Corpuscular HGB Conc 31.7 g/dl (31.0-36.0); Mean Corpuscular Hemoglobin 31.4 pg (27.0-33.0); Mean Corpuscular Volume 99.0 fL (80.0-98.0); NRBC Abs Auto 0.000 X10*3/uL (0.0-0.012); NRBC Pct Auto 0.0 /100WBC (0.0-0.2); Platelet Count 76 X10*3/uL (160-400); Red Blood Count 3.82 X10*6/uL (4.60-5.80); White Blood Count 10.1 X10*3/uL (4.8-10.8)
[2025-07-19 12:42] LABS: Alanine Aminotransferase 50 U/L (0-40); Albumin Level 3.3 g/dL (3.5-5.0); Alkaline Phosphatase 162 U/L (39-117); Anion Gap 12 (12-20); Aspartate Amino Transferase 45 U/L (5-37); Blood Urea Nitrogen 26 mg/dL (9-16); Calcium 8.1 mg/dL (8.4-10.2); Carbon Dioxide 21 mmol/L (22-29); Chloride 112 mmol/L (96-108); Creatinine Clr Calc Pharmacy 47.4; Estimated Glomerular Filt Rate 55; Lipase 70 U/L (8-78); Potassium 3.9 mmol/L (3.3-5.1); Sodium 141 mmol/L (135-145); Total Protein 6.2 g/dL (6.5-8.0)
[2025-07-19] MEDS: Lactated Ringers 1,000 ML 999 ML IV ×2 (12:42)
[2025-07-19 12:46] LABS: B Type Natriuretic Peptide 1245 pg/mL (<100)
[2025-07-19 12:48] LABS: Glucose, Whole Blood 131 mg/dL (60-115)
[2025-07-19 12:57] LABS: Venous Blood Gas Refer to POC result
[2025-07-19 12:57] LABS: VBG HCO3 21 mmol/L (22-26); VBG O2 % Saturation 99.0 %
[2025-07-19 13:15] LABS: Resp Syncy Virus RNA Qual PCR NEGATIVE (Negative); SARS COV2 PCR INHOUSE NEGATIVE (Negative)
[2025-07-19 13:44] LABS: Appearance Urine Clear; Glucose Urine UA >=1000 mg/dL (Negative); PH 5.5 (5.0-9.0); Specific Gravity - Urine 1.020 (1.005-1.025); UMIC TRIGGER UACC YES
--- NOTE | 2025-07-19 14:15 | PC.NURSE ---
Patient presents to ED after being found hypoxic by son, 89% RA 2L NC reassessed 98% denies SOB, pain, n/v, coughing Patient had rectal temp of 101.7, tylenol administered effectiveness pending Patient able unable to produce urine sample, patient straight cathed for 200 ml of yellow urine, sample sent to lab CXR negative Ceftriaxone administered per [facility] Plan of care on going
--- NOTE | 2025-07-19 16:09 | P.HPHOSP_ITS ---
History of Present Illness Date of Service: 07/19/25 Chief Complaint: Pneumonia 80-year-old male presented to the ED with his son with weakness and low energy. He was found to be febrile and was noted to be hypoxic at 89%. He was noted to have fever but no leukocytosis, looks like chronic platelets with no acute bleeding. He denied chest pain. nausea, vomiting, diarrhea, recent travel, sick contacts. Amaral's at recently admitted and treated for bronchitis and pneumonia. Chest CT showed increased bibasilar pneumonia with partial resolution of previously seen diffuse bilateral pneumonia, asbestos related pleural disease, small amount of perihepatic ascites. He did have fever of 101.7, no leukocytosis, chronic thrombocytopenia, BNP 1245, not appearing to be in heart failure. He received 2 L of IV fluid in the ER, Rocephin, doxycycline. He will be admitted for further management and treatment of recurrent pneumonia. Review of Systems 2 Review of Systems: Denies any recent fever chills or decrease in appetite respiratory See HPI cardiovascular Denied chest pain gastrointestinal denies any dysphagia abdominal pain nausea vomiting or diarrhea genitourinary denies any dysuria frequency or hematuria musculoskeletal denies any joint pain or swelling neuropsych denies any weakness or seizures all other systems reviewed are negative [facility] Medical History Hypoxia CKD (chronic kidney disease) stage 3, GFR 30-59 ml/min Heart failure with reduced ejection fraction Thrombocytopenia Diabetes 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 Father No problems noted. Surgical History Stented coronary artery S/P cardiac cath History of colonoscopy (~10/27/16) Hx of cardiac cath Social History Household Members: Unknown / Unable to assess Housing: Unknown / Unable to assess Do you presently have visiting nurse or other home services: No Alcohol intake: current Alcohol intake frequency: holidays/special occasions only Patient Tobacco Use Status: Former Tobacco user Smoked in Last 30 Days: No e-Cigarette/Vaping Use: Former Use Second Hand Smoke Exposure: No Use of substances other than those prescribed or required for medical reasons: No Advance Directives: Yes Advance Directives on File: Yes Advance Directives Date on File: 09/13/24 service: No Current occupational status: retired and disabled Cognitive needs: Yes (cane) Hearing needs: No Vision needs: Yes (reading glasses) Meds Allergies Allergy/AdvReac Type Severity Reaction Status Date / Time No Known Allergies Allergy Verified 07/19/25 11:49 Active Medications: Current Medications Doxycycline Hyclate 100 mg/ (Sodium Chloride) 250 mls @ 166.67 mls/hr IV ONCE ONE Stop: 07/19/25 16:10 Last Admin: 07/19/25 15:20 Dose: 166.67 mls/hr Home Medications ?Medication ?Instructions ?Recorded ?Confirmed ?Last Taken ?Type fluticasone furoate 200 1 inh inhalation DAILY PRN 0 06/15/25 07/18/25 Unknown History mcg/actuation blister powder for Shortness Of Breath O r Wheezing inhalation (Arnuity Ellipta) apixaban 2.5 mg tablet (Eliquis) 2.5 mg PO BID 5 07/18/25 Unknown History Physical Exam 2 Vital Signs and Narrative: Vital Signs: Last Vital Signs Temp 99.6 F 07/19/25 15:27 Pulse 70 07/19/25 15:59 Resp 16 07/19/25 15:59 BP 128/58 L 07/19/25 15:59 Pulse Ox 98 07/19/25 15:59 O2 Del Method Nasal Cannula 07/19/25 15:59 O2 Flow Rate 2 07/19/25 15:59 BMI result Body Mass Index 31.5 Appearing in no acute distress head is normocephalic atraumatic eyes pupils are PERRLA sclera is anicteric mouth throat mucous membranes are intact and moist neck is supple no lymphadenopathy, no JVD noted lung sounds are clear to auscultation heart regular rate rhythm, clear S1, S2 positive bowel sounds, abdomen is soft, nontender neuro patient is alert x3, no focal deficits Results Labs 07/19/25 12:08 07/19/25 12:08 Labs: Laboratory Results - last 24 hr 07/19/25 07/19/25 07/19/25 12:08 12:27 12:41 MCV 99.0 H MCH 31.4 MCHC 31.7 RDW 18.7 H Plt Count 76 L MPV 12.4 Immature Gran % (Auto) 1.4 H Neut % (Auto) 77.8 H Lymph % (Auto) 6.1 L [place] % (Auto) 13.8 H Eos % (Auto) 0.7 Baso % (Auto) 0.2 Lymph # (Auto) 0.6 L [place] # (Auto) 1.4 H Eos # (Auto) 0.1 Baso # (Auto) 0.0 Abs Immat Gran (auto) 0.14 H Absolute Neuts (auto) 7.8 Absolute Nucleated RBC 0.000 Nucleated RBC % (auto) 0.0 VBG pH VBG pCO2 VBG pO2 VBG HCO3 VBG O2 Saturation VBG Base Excess Anion Gap 12 Estim Creat Clear Calc 47.4 Estimated GFR 55 POC Glucose 131 H Random Glucose 143 H Lactic Acid 1.6 Calcium 8.1 L Total Bilirubin 0.8 AST 45 H ALT 50 H Alkaline Phosphatase 162 H B-Natriuretic Peptide 1245 H Total Protein 6.2 L Albumin 3.3 L Lipase 70 Urine Color Urine Appearance Urine pH Ur Specific [place] Urine Protein Urine Glucose (UA) Urine Ketones Urine Blood Urine Nitrite Ur Leukocyte Esterase Urine RBC Urine WBC Ur Squamous Epith Cells Urine Bacteria Hyaline Casts Influenza Type A (PCR) NEGATIVE Influenza Type B (PCR) NEGATIVE RSV RNA Qual (PCR) NEGATIVE SARS-CoV-2 RNA (RT-PCR) NEGATIVE Blood Type O Positive Antibody Screen NEGATIVE 07/19/25 07/19/25 12:52 13:34 MCV MCH MCHC RDW Plt Count MPV Immature Gran % (Auto) Neut % (Auto) Lymph % (Auto) [place] % (Auto) Eos % (Auto) Baso % (Auto) Lymph # (Auto) [place] # (Auto) Eos # (Auto) Baso # (Auto) Abs Immat Gran (auto) Absolute Neuts (auto) Absolute Nucleated RBC Nucleated RBC % (auto) VBG pH 7.43 VBG pCO2 31 VBG pO2 180 VBG HCO3 21 L VBG O2 Saturation 99.0 VBG Base Excess -2.0 Anion Gap Estim Creat Clear Calc Estimated GFR POC Glucose Random Glucose Lactic Acid Calcium Total Bilirubin AST ALT Alkaline Phosphatase B-Natriuretic Peptide Total Protein Albumin Lipase Urine Color Yellow Urine Appearance Clear Urine pH 5.5 Ur Specific [place] 1.020 Urine Protein Trace Urine Glucose (UA) >=1000 H Urine Ketones Negative Urine Blood Trace H Urine Nitrite Negative Ur Leukocyte Esterase Negative Urine RBC 0-2 Urine WBC 0-5 Ur Squamous Epith Cells 0-2 Urine Bacteria None Seen Hyaline Casts 0-2 Influenza Type A (PCR) Influenza Type B (PCR) RSV RNA Qual (PCR) SARS-CoV-2 RNA (RT-PCR) Blood Type Antibody Screen Assessment and Plan (1) Pneumonia: Status: Acute Plan 80 year old man admitted with Acute hypoxic respiratory failure and pneumonia Acute hypoxic respiratory failure secondary to pneumonia Start Rocephin and Azithromycin Supplemental oxygen to keep oxygen sat >91% Duonebs as needed Elevated BNP Patient not appearing to be in heart failure Monitor closely for changes in respiratory status Transaminitis mildly elevated monitor Fever Secondary to pneumonia no sepsis CKD 3 stable at baseline Thrombocytopenia no acute bleeding chronic, not from sepsis Paroxysmal afib Continue BB and Eliquis DM2 ss, ada diet lantus DVT prophylaxis with Eliquis Full code Quality Stroke Does the patient have a stroke diagnosis?: No VTE Prior VTE?: No VTE Risk Level:: Medical - moderate - high VTE Device Contraindication: Treatment Not Indicated VTE Drug Contraindication: N/A - Med Ordered
--- NOTE | 2025-07-19 16:15 | MHC.EDTECH ---
Assisted Pt with urinal, voided 400ml. Repositioned in bed, call martin within reach.
--- NOTE | 2025-07-19 17:09 | PHA.MEDREC ---
Pharmacy Consult ? Medication Reconciliation Pharmacy has completed the medication reconciliation.Med rec complete, spoke to patients son, Duc. Was able to confirm all medications and doses, states patient was recently taken off of lasix, and has also been taken off of clopidogrel
[2025-07-19 20:05] LABS: Glucose, Whole Blood 257 mg/dL (60-115)
[2025-07-19] MEDS: 0.9 % Sodium Chloride Flush 3 ML SYRINGE IVFLUSH (20:26)
[2025-07-20] VITALS (8 sets, daily range): BP systolic 124–144; BP diastolic 58–62; PULSE 66–84; RESP 14–21; TEMP 36.3–37.2; O2SAT 94–99
[2025-07-20 04:39] LABS: Hematocrit 35.0 % (42.0-52.0); Hemoglobin 10.9 g/dl (14.0-18.0); Mean Corpuscular HGB Conc 31.1 g/dl (31.0-36.0); Mean Corpuscular Hemoglobin 31.2 pg (27.0-33.0); Mean Corpuscular Volume 100.3 fL (80.0-98.0); NRBC Abs Auto 0.000 X10*3/uL (0.0-0.012); NRBC Pct Auto 0.0 /100WBC (0.0-0.2); PLT CLUMP 1; Red Blood Count 3.49 X10*6/uL (4.60-5.80)
[2025-07-20 04:41] LABS: White Blood Count 8.1 X10*3/uL (4.8-10.8)
[2025-07-20 04:55] LABS: Alanine Aminotransferase 42 U/L (0-40); Albumin Level 3.0 g/dL (3.5-5.0); Alkaline Phosphatase 131 U/L (39-117); Anion Gap 11 (12-20); Aspartate Amino Transferase 38 U/L (5-37); Blood Urea Nitrogen 26 mg/dL (9-16); Calcium 7.9 mg/dL (8.4-10.2); Carbon Dioxide 25 mmol/L (22-29); Chloride 115 mmol/L (96-108); Creatinine Clr Calc Pharmacy 44.6; Estimated Glomerular Filt Rate 51; Potassium 3.8 mmol/L (3.3-5.1); Sodium 147 mmol/L (135-145); Total Protein 5.6 g/dL (6.5-8.0)
[2025-07-20 04:56] LABS: Platelet Count 65 X10*3/uL (160-400)
[2025-07-20 04:58] LABS: B Type Natriuretic Peptide 1556 pg/mL (<100)
--- NOTE | 2025-07-20 05:54 | PC.NURSE ---
Assumed care of patient at 1900. Patient just getting settled into bed upon this headline writer?s arrival to unit. He is alert and oriented x 3, able to make needs known. He is using a urinal at the bedside. Continues to wait for bed on Med Surg. No acute events overnight. Bed locked and in lowest setting, call martin within reach.
--- NOTE | 2025-07-20 07:40 | PC.NURSE ---
This RN assumed care of patient @ 0700 Patient awake and alert IV 20G in Left forearm and 20G in Left AC, nothing infusing at this time Patient on O2 2liters 98% Patient able to use urinal, producing clear yellow urine Bed alarm is on Patient currently being treated for PNA Patient awaiting bed placement
[2025-07-20 07:52] LABS: Glucose, Whole Blood 65 mg/dL (60-115)
[2025-07-20] MEDS: 0.9 % Sodium Chloride Flush 3 ML SYRINGE IVFLUSH ×3 (09:09→21:27)
[2025-07-20] MEDS: Sacubitril/Valsartan 49/51 1 TAB TABLET PO ×2 (09:45→21:25)
--- NOTE | 2025-07-20 10:51 | HO.PM.IMPN ---
Subjective Subjective Date of Service: 07/21/25 Review of Systems Follow up Resp failure, pneumonia Physical Exam Exam: Exam: Appearing in no acute distress lung sounds are clear to auscultation heart regular rate rhythm, clear S1, S2 positive bowel sounds, abdomen is soft, nontender neuro patient is alert x3, no focal deficits Vital Signs: Vital Signs: Last Vital Signs Temp 97.6 F 07/20/25 07:32 Pulse 66 07/20/25 09:44 Resp 15 07/20/25 07:32 BP 135/62 07/20/25 09:45 Pulse Ox 99 07/20/25 07:32 O2 Del Method Room Air 07/20/25 07:32 O2 Flow Rate 1 07/19/25 18:56 BMI result Body Mass Index 31.5 Objective Data Active Medications Acetaminophen (Acetaminophen 325 Mg Tablet) 650 mg PO Q6H PRN PRN Reason: Pain, Mild 1-3,fever,headache Al Hydroxide/Mg Hydroxide (Magnesium Hydrox/Alum Hydrox 30 Ml Oral.Susp) 30 ml PO Q4H PRN PRN Reason: Heartburn Allopurinol (Allopurinol 100 Mg Tablet) 100 mg PO DAILY [facility] Last Admin: 07/20/25 09:44 Dose: 100 mg Documented By: MAGGIE Apixaban (Apixaban 2.5 Mg Tablet) 2.5 mg PO BID [facility] Last Admin: 07/20/25 09:44 Dose: 2.5 mg Documented By: MAGGIE Atorvastatin Calcium (Atorvastatin Calcium 40 Mg Tablet) 40 mg PO BEDTIME [facility] Calcium Carbonate (Calcium Carbonate 750 Mg Tab.Chew) 750 mg PO Q4H PRN PRN Reason: Heartburn Ceftriaxone Sodium (Ceftriaxone Sodium 1 Gm Vial) 1 gm IVPUSH Q24H [facility] Dextrose (Dextrose 50 % 25 Gm/50 Ml Syringe) 25 gm IVPUSH Q15M PRN; Protocol PRN Reason: per Hypoglycemia Standing Ord. Empagliflozin (Empagliflozin 10 Mg Tablet) 10 mg PO DAILY [facility] Last Admin: 07/20/25 09:45 Dose: 10 mg Documented By: MAGGIE Glucose (Glucose Gel 15 Gm Gel..Gram.) 15 gm PO Q15M PRN; Protocol PRN Reason: per Hypoglycemia Standing Ord. Azithromycin 500 mg/ Sodium (Chloride) 250 mls @ 125 mls/hr IV Q24H [facility] Last Infusion: 07/19/25 19:05 Dose: Infused Documented By: SIL Insulin Human Lispro (Insulin Lispro 100 Unit/Ml 3 Ml Vial) 0 unit SUBCUT QIDACHS [facility]; Protocol Last Admin: 07/20/25 08:29 Dose: Not Given Documented By: MAGGIE Non-Admin Reason: No Insulin Coverage Magnesium Hydroxide (Milk Of Magnesia 30 Ml Oral.Susp) 30 ml PO DAILY PRN PRN Reason: Constipation Melatonin (Melatonin 3 Mg Tablet) 6 mg PO BEDTIME PRN PRN Reason: Insomnia Metoprolol Tartrate (Metoprolol Tartrate 25 Mg Tablet) 25 mg PO BID [facility]; Protocol Last Admin: 07/20/25 09:44 Dose: 25 mg Documented By: MAGGIE Ondansetron HCl (Ondansetron Hcl 4 Mg/2 Ml Vial) 4 mg IVPUSH Q8H PRN PRN Reason: Nausea and Vomiting Sacubitril/Valsartan (Sacubitril/Valsartan 49/51 1 Tab Tablet) 1 tab PO BID [facility]; Protocol Last Admin: 07/20/25 09:45 Dose: 1 tab Documented By: MAGGIE Sodium Chloride (0.9 % Sodium Chloride Flush 3 Ml Syringe) 3 ml IVFLUSH QSHIFT [facility] Last Admin: 07/20/25 09:09 Dose: 3 ml Documented By: MAGGIE Labs 07/20/25 04:25 07/21/25 06:50 Labs: Laboratory Results - last 24 hr 07/19/25 07/19/25 07/19/25 12:08 12:27 12:41 MCV 99.0 H MCH 31.4 MCHC 31.7 RDW 18.7 H Plt Count 76 L MPV 12.4 Immature Gran % (Auto) 1.4 H Neut % (Auto) 77.8 H Lymph % (Auto) 6.1 L [place] % (Auto) 13.8 H Eos % (Auto) 0.7 Baso % (Auto) 0.2 Lymph # (Auto) 0.6 L [place] # (Auto) 1.4 H Eos # (Auto) 0.1 Baso # (Auto) 0.0 Abs Immat Gran (auto) 0.14 H Absolute Neuts (auto) 7.8 Absolute Nucleated RBC 0.000 Nucleated RBC % (auto) 0.0 VBG pH VBG pCO2 VBG pO2 VBG HCO3 VBG O2 Saturation VBG Base Excess Anion Gap 12 Estim Creat Clear Calc 47.4 Estimated GFR 55 POC Glucose 131 H Random Glucose 143 H Lactic Acid 1.6 Calcium 8.1 L Total Bilirubin 0.8 AST 45 H ALT 50 H Alkaline Phosphatase 162 H B-Natriuretic Peptide 1245 H Total Protein 6.2 L Albumin 3.3 L Lipase 70 Urine Color Urine Appearance Urine pH Ur Specific [place] Urine Protein Urine Glucose (UA) Urine Ketones Urine Blood Urine Nitrite Ur Leukocyte Esterase Urine RBC Urine WBC Ur Squamous Epith Cells Urine Bacteria Hyaline Casts Influenza Type A (PCR) NEGATIVE Influenza Type B (PCR) NEGATIVE RSV RNA Qual (PCR) NEGATIVE SARS-CoV-2 RNA (RT-PCR) NEGATIVE Blood Type O Positive Antibody Screen NEGATIVE 07/19/25 07/19/25 07/19/25 12:52 13:34 20:01 MCV MCH MCHC RDW Plt Count MPV Immature Gran % (Auto) Neut % (Auto) Lymph % (Auto) [place] % (Auto) Eos % (Auto) Baso % (Auto) Lymph # (Auto) [place] # (Auto) Eos # (Auto) Baso # (Auto) Abs Immat Gran (auto) Absolute Neuts (auto) Absolute Nucleated RBC Nucleated RBC % (auto) VBG pH 7.43 VBG pCO2 31 VBG pO2 180 VBG HCO3 21 L VBG O2 Saturation 99.0 VBG Base Excess -2.0 Anion Gap Estim Creat Clear Calc Estimated GFR POC Glucose 257 H Random Glucose Lactic Acid Calcium Total Bilirubin AST ALT Alkaline Phosphatase B-Natriuretic Peptide Total Protein Albumin Lipase Urine Color Yellow Urine Appearance Clear Urine pH 5.5 Ur Specific [place] 1.020 Urine Protein Trace Urine Glucose (UA) >=1000 H Urine Ketones Negative Urine Blood Trace H Urine Nitrite Negative Ur Leukocyte Esterase Negative Urine RBC 0-2 Urine WBC 0-5 Ur Squamous Epith Cells 0-2 Urine Bacteria None Seen Hyaline Casts 0-2 Influenza Type A (PCR) Influenza Type B (PCR) RSV RNA Qual (PCR) SARS-CoV-2 RNA (RT-PCR) Blood Type Antibody Screen 07/20/25 07/20/25 04:25 07:48 MCV 100.3 H MCH 31.2 MCHC 31.1 RDW 18.6 H Plt Count 65 L MPV 13.3 H Immature Gran % (Auto) Neut % (Auto) Lymph % (Auto) [place] % (Auto) Eos % (Auto) Baso % (Auto) Lymph # (Auto) [place] # (Auto) Eos # (Auto) Baso # (Auto) Abs Immat Gran (auto) Absolute Neuts (auto) Absolute Nucleated RBC 0.000 Nucleated RBC % (auto) 0.0 VBG pH VBG pCO2 VBG pO2 VBG HCO3 VBG O2 Saturation VBG Base Excess Anion Gap 11 L Estim Creat Clear Calc 44.6 Estimated GFR 51 POC Glucose 65 Random Glucose 125 H Lactic Acid Calcium 7.9 L Total Bilirubin 0.4 AST 38 H ALT 42 H Alkaline Phosphatase 131 H B-Natriuretic Peptide 1556 H Total Protein 5.6 L Albumin 3.0 L Lipase Urine Color Urine Appearance Urine pH Ur Specific [place] Urine Protein Urine Glucose (UA) Urine Ketones Urine Blood Urine Nitrite Ur Leukocyte Esterase Urine RBC Urine WBC Ur Squamous Epith Cells Urine Bacteria Hyaline Casts Influenza Type A (PCR) Influenza Type B (PCR) RSV RNA Qual (PCR) SARS-CoV-2 RNA (RT-PCR) Blood Type Antibody Screen Assessment and Plan (1) Acute exacerbation of bronchiectasis: Status: Acute Plan 80 year old man admitted with Acute hypoxic respiratory failure and pneumonia Acute hypoxic respiratory failure secondary to pneumonia Start Rocephin and Azithromycin Supplemental oxygen to keep oxygen sat >91% Duonebs as needed Elevated BNP Patient not appearing to be in heart failure Monitor closely for changes in respiratory status Transaminitis mildly elevated monitor Fever Secondary to pneumonia no sepsis CKD 3 stable at baseline Thrombocytopenia no acute bleeding chronic, not from sepsis Paroxysmal afib Continue BB and Eliquis DM2 ss, ada diet lantus DVT prophylaxis with Eliquis Full code Quality Stroke Does the patient have a stroke diagnosis?: No VTE Prior VTE?: No VTE Risk Level:: Medical - moderate - high VTE Device Contraindication: Treatment Not Indicated VTE Drug Contraindication: N/A - Med Ordered
[2025-07-20 11:47] LABS: Glucose, Whole Blood 101 mg/dL (60-115)
[2025-07-20 17:22] LABS: Glucose, Whole Blood 101 mg/dL (60-115)
--- NOTE | 2025-07-20 20:18 | PC.NURSE ---
pt hot to touch and temporal temp 101.3 as anx being hung. attempted to give APAP and pt stated he was told never to take tylenol. [employer] aware and verbal given for ibuprofen. Pt's temp came down independently to 98.7 prior to completion of plan.
[2025-07-20 21:01] LABS: Glucose, Whole Blood 173 mg/dL (60-115)
[2025-07-21 03:18] VITALS: BP 128/59; PULSE 69; RESP 16; TEMP 36.1; O2SAT 93
[2025-07-21 07:30] LABS: Anion Gap 15 (12-20); Blood Urea Nitrogen 22 mg/dL (9-16); Calcium 8.3 mg/dL (8.4-10.2); Carbon Dioxide 23 mmol/L (22-29); Chloride 110 mmol/L (96-108); Creatinine Clr Calc Pharmacy 44.2; Estimated Glomerular Filt Rate 51; Potassium 4.2 mmol/L (3.3-5.1); Sodium 144 mmol/L (135-145)
[2025-07-21 07:31] LABS: Glucose, Whole Blood 63 mg/dL (60-115)
[2025-07-21 07:39] LABS: B Type Natriuretic Peptide 1931 pg/mL (<100)
[2025-07-21 08:11] VITALS: BP 137/65; PULSE 86; RESP 16; TEMP 38.1; O2SAT 94
--- NOTE | 2025-07-21 08:31 | HO.PM.IMPN ---
Subjective Subjective Date of Service: 07/21/25 Review of Systems Follow up Resp failure, pneumonia Low grade temp this morning feels better ambulating Physical Exam Exam: Exam: Appearing in no acute distress lung sounds dry crackles heart regular rate rhythm, clear S1, S2 positive bowel sounds, abdomen is soft, nontender neuro patient is alert x3, no focal deficits Vital Signs: Vital Signs: Last Vital Signs Temp 100.6 F H 07/21/25 08:11 Pulse 86 07/21/25 08:11 Resp 16 07/21/25 08:11 BP 137/65 07/21/25 08:11 Pulse Ox 94 07/21/25 08:11 O2 Del Method Room Air 07/21/25 08:11 O2 Flow Rate 2 07/21/25 08:11 BMI result Body Mass Index 31.5 Objective Data Active Medications Acetaminophen (Acetaminophen 325 Mg Tablet) 650 mg PO Q6H PRN PRN Reason: Pain, Mild 1-3,fever,headache Al Hydroxide/Mg Hydroxide (Magnesium Hydrox/Alum Hydrox 30 Ml Oral.Susp) 30 ml PO Q4H PRN PRN Reason: Heartburn Allopurinol (Allopurinol 100 Mg Tablet) 100 mg PO DAILY [facility] Last Admin: 07/20/25 09:44 Dose: 100 mg Documented By: MAGGIE Apixaban (Apixaban 2.5 Mg Tablet) 2.5 mg PO BID [facility] Last Admin: 07/20/25 21:26 Dose: 2.5 mg Documented By: JOHN Atorvastatin Calcium (Atorvastatin Calcium 40 Mg Tablet) 40 mg PO BEDTIME [facility] Last Admin: 07/20/25 21:25 Dose: 40 mg Documented By: JOHN Calcium Carbonate (Calcium Carbonate 750 Mg Tab.Chew) 750 mg PO Q4H PRN PRN Reason: Heartburn Ceftriaxone Sodium (Ceftriaxone Sodium 1 Gm Vial) 1 gm IVPUSH Q24H [facility] Last Admin: 07/20/25 12:16 Dose: 1 gm Documented By: MAGGIE Dextrose (Dextrose 50 % 25 Gm/50 Ml Syringe) 25 gm IVPUSH Q15M PRN; Protocol PRN Reason: per Hypoglycemia Standing Ord. Empagliflozin (Empagliflozin 10 Mg Tablet) 10 mg PO DAILY [facility] Last Admin: 07/20/25 09:45 Dose: 10 mg Documented By: MAGGIE Furosemide (Furosemide 40 Mg/4 Ml Vial) 40 mg IVPUSH BID@0900,1800 [facility]; Protocol Glucose (Glucose Gel 15 Gm Gel..Gram.) 15 gm PO Q15M PRN; Protocol PRN Reason: per Hypoglycemia Standing Ord. Azithromycin 500 mg/ Sodium (Chloride) 250 mls @ 125 mls/hr IV Q24H [facility] Last Infusion: 07/20/25 20:31 Dose: Infused Documented By: JOHN Insulin Human Lispro (Insulin Lispro 100 Unit/Ml 3 Ml Vial) 0 unit SUBCUT QIDACHS [facility]; Protocol Last Admin: 07/21/25 07:51 Dose: Not Given Documented By: YOHANNES Non-Admin Reason: No Insulin Coverage Magnesium Hydroxide (Milk Of Magnesia 30 Ml Oral.Susp) 30 ml PO DAILY PRN PRN Reason: Constipation Melatonin (Melatonin 3 Mg Tablet) 6 mg PO BEDTIME PRN PRN Reason: Insomnia Metoprolol Tartrate (Metoprolol Tartrate 25 Mg Tablet) 25 mg PO BID [facility]; Protocol Last Admin: 07/20/25 21:25 Dose: 25 mg Documented By: JOHN Ondansetron HCl (Ondansetron Hcl 4 Mg/2 Ml Vial) 4 mg IVPUSH Q8H PRN PRN Reason: Nausea and Vomiting Sacubitril/Valsartan (Sacubitril/Valsartan 49/51 1 Tab Tablet) 1 tab PO BID [facility]; Protocol Last Admin: 07/20/25 21:25 Dose: 1 tab Documented By: JOHN Sodium Chloride (0.9 % Sodium Chloride Flush 3 Ml Syringe) 3 ml IVFLUSH QSHIFT [facility] Last Admin: 07/20/25 21:27 Dose: 3 ml Documented By: JOHN Labs 07/20/25 04:25 07/21/25 06:50 Labs: Laboratory Results - last 24 hr 07/20/25 07/20/25 07/20/25 11:43 16:50 20:55 Anion Gap Estim Creat Clear Calc Estimated GFR POC Glucose 101 101 173 H Random Glucose Calcium B-Natriuretic Peptide 07/21/25 07/21/25 06:50 07:21 Anion Gap 15 Estim Creat Clear Calc 44.2 Estimated GFR 51 POC Glucose 63 Random Glucose 72 Calcium 8.3 L B-Natriuretic Peptide 1931 H Microbiology Microbiology Results: Microbiology 07/19/25 12:34 Blood Culture - Preliminary Blood - Venous No growth after 24 hours. 07/19/25 12:34 Blood Culture - Preliminary Blood - Venous No growth after 24 hours. Assessment and Plan (1) Acute exacerbation of bronchiectasis: Status: Acute Plan 80 year old man admitted with Acute hypoxic respiratory failure and pneumonia Low grade temp ua neg, resp status not worsening, blood cx neg check RPP, maybe viral monitor Elevated BNP continuous increase daily not in overt failure start IV lasix BID cardiology consult Acute hypoxic respiratory failure secondary to pneumonia Start Rocephin and Azithromycin Supplemental oxygen to keep oxygen sat >91% Duonebs as needed Transaminitis mildly elevated monitor Fever Secondary to pneumonia no sepsis CKD 3 stable at baseline Thrombocytopenia no acute bleeding chronic, not from sepsis Paroxysmal afib Continue BB and Eliquis DM2 ss, ada diet lantus DVT prophylaxis with Eliquis Full code Quality Stroke Does the patient have a stroke diagnosis?: No VTE Prior VTE?: No VTE Risk Level:: Medical - moderate - high VTE Device Contraindication: Treatment Not Indicated VTE Drug Contraindication: N/A - Med Ordered
[2025-07-21] MEDS: Furosemide 40 MG/4 ML VIAL IVPUSH ×2 (08:47→17:16)
[2025-07-21 08:48] LABS: Glucose, Whole Blood 116 mg/dL (60-115)
[2025-07-21] MEDS: Sacubitril/Valsartan 49/51 1 TAB TABLET PO ×2 (08:48→20:56)
[2025-07-21] MEDS: 0.9 % Sodium Chloride Flush 3 ML SYRINGE IVFLUSH ×3 (08:48→20:57)
--- NOTE | 2025-07-21 11:04 | MHC.CM.PN ---
Patient comes from home w/ son. Ambulates w/ a walker. Active w/ [facility] for PT/OT/SN. PCP Kobe Christian MD HCP on file and verified. DP: PT eval pending. Goal is home w/ family and resumption of [facility] services. Family transport. CM will continue to follow.
[2025-07-21 11:11] LABS: Chlamydia pneumoniae PCR Not Detected (Not Detect.); Coronavirus 229E PCR Not Detected (Not Detect.); Coronavirus HKU1 PCR Not Detected (Not Detect.); Coronavirus NL63 PCR Not Detected (Not Detect.); Coronavirus OC43 PCR Not Detected (Not Detect.); RSV PCR Not Detected (Not Detect.); Rhino/Enterovirus PCR Not Detected (Not Detect.)
[2025-07-21 11:19] LABS: Influenza A H1 PCR Not Detected (Not Detect.); Influenza A H1-2009 PCR Not Detected (Not Detect.); Influenza A H3 PCR Not Detected (Not Detect.); SARS-CoV-2 PCR Not Detected (Not Detect.)
[2025-07-21 11:43] LABS: Glucose, Whole Blood 152 mg/dL (60-115)
--- NOTE | 2025-07-21 13:52 | PM.CNCAR ---
History of Present Illness History of Present Illness Date of Service: 07/21/25 Requesting physician: Dalia Rebolledo Consult reason: other (Elevated BNP, hypoxemic respiratory failure) Chief complaint: fever low oxygen Narrative: I was consulted to see Ace in cardiology consultation today for worsening BNP level as well as persistent hypoxemic respiratory failure in the setting of known prior CAD status post NSTEMI with stenting, atrial fibrillation, [id number] LV systolic dysfunction with LVEF of 40-45%, chronic parenchymal lung disease with bronchiectasis as well as interstitial lung disease with prior asbestosis, myelodysplastic syndrome, chronic kidney disease, diabetes comes to the hospital with pneumonia with worsening shortness of breath. He was noted to have been hypoxemic respiratory failure and progressively Rich to have persistent hypoxemia and worsening BNP. Was started on IV diuresis treatment. Patient says he overall felt weak and that is why came to the emergency room and could not take care of himself. In the emergency room noticed to have multifocal pneumonia and admitted. Persistent hypoxemia led to further workup and suggestive of possible CHF. Has been getting IV diuresis. Outputs have not been well documented. Remains with low-grade fever and complains of low-grade fever. Continues to have weakness. Continues to use oxygen. He does not have oxygen use at home. Denies any palpitations. EKG subsequent showed sinus rhythm on admission showed atrial fibrillation. Echocardiogram done about a week ago showed [id number] LV systolic dysfunction with ejection fraction 40-45% with grade 2 diastolic dysfunction mildly dilated left atrium with normal cardiac valvular Dopplers. Chest CTA shows bilaterally worsening infiltrate in the lower lobes along with asbestosis. Review of Systems Constitutional: Constitutional: Reports fatigue, Reports fever(s), Reports lethargy and Reports weakness Eyes: Eyes: Reports no additional eye complaints Cardiovascular: Cardiovascular: Denies chest pain, Denies leg edema, Denies lightheadedness, Denies Loss of Consciousness, Denies palpitations and Reports dyspnea Respiratory: Respiratory: Denies no additional respiratory complaints and Reports dyspnea Gastrointestinal: Gastrointestinal: Reports no additional gastrointestinal complaints Genitourinary: Genitourinary: Reports no additional male genitourinary complaints Musculoskeletal: Musculoskeletal: Reports no additional musculoskeletal complaints Neurologic: Reports weakness Psychiatric: Psychiatric: Reports no additional psychiatric complaints Endocrine: Endocrine: Reports no additional endocrine complaints, Reports fatigue and Denies palpitations [facility] Past Medical History Medical History Hypoxia CKD (chronic kidney disease) stage 3, GFR 30-59 ml/min Heart failure with reduced ejection fraction Thrombocytopenia Diabetes 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 Father No problems noted. Surgical History Surgical History Stented coronary artery S/P cardiac cath History of colonoscopy (~10/27/16) Hx of cardiac cath Social History Social History Household Members: Family Housing: House Do you presently have visiting nurse or other home services: Yes (vna) Alcohol intake: current Alcohol intake frequency: holidays/special occasions only Patient Tobacco Use Status: Former Tobacco user e-Cigarette/Vaping Use: Former Use Second Hand Smoke Exposure: No Advance Directives Date on File: 09/13/24 service: No Current occupational status: retired and disabled Cognitive needs: Yes (cane) Hearing needs: No Vision needs: Yes (reading glasses) Meds Allergies Allergy/AdvReac Type Severity Reaction Status Date / Time No Known Allergies Allergy Verified 07/19/25 11:49 Active Medications: Current Medications Acetaminophen (Acetaminophen 325 Mg Tablet) 650 mg PO Q6H PRN PRN Reason: Pain, Mild 1-3,fever,headache Al Hydroxide/Mg Hydroxide (Magnesium Hydrox/Alum Hydrox 30 Ml Oral.Susp) 30 ml PO Q4H PRN PRN Reason: Heartburn Allopurinol (Allopurinol 100 Mg Tablet) 100 mg PO DAILY RASHAD Last Admin: 07/21/25 08:48 Dose: 100 mg Apixaban (Apixaban 2.5 Mg Tablet) 2.5 mg PO BID RASHAD Last Admin: 07/21/25 08:48 Dose: 2.5 mg Atorvastatin Calcium (Atorvastatin Calcium 40 Mg Tablet) 40 mg PO BEDTIME RASHAD Last Admin: 07/20/25 21:25 Dose: 40 mg Calcium Carbonate (Calcium Carbonate 750 Mg Tab.Chew) 750 mg PO Q4H PRN PRN Reason: Heartburn Ceftriaxone Sodium (Ceftriaxone Sodium 1 Gm Vial) 1 gm IVPUSH Q24H [facility] Last Admin: 07/21/25 12:42 Dose: 1 gm Dextrose (Dextrose 50 % 25 Gm/50 Ml Syringe) 25 gm IVPUSH Q15M PRN; Protocol PRN Reason: per Hypoglycemia Standing Ord. Empagliflozin (Empagliflozin 10 Mg Tablet) 10 mg PO DAILY [facility] Last Admin: 07/21/25 08:48 Dose: 10 mg Furosemide (Furosemide 40 Mg/4 Ml Vial) 40 mg IVPUSH BID@0900,1800 [facility]; Protocol Last Admin: 07/21/25 08:54 Dose: Not Given Glucose (Glucose Gel 15 Gm Gel..Gram.) 15 gm PO Q15M PRN; Protocol PRN Reason: per Hypoglycemia Standing Ord. Azithromycin 500 mg/ Sodium (Chloride) 250 mls @ 125 mls/hr IV Q24H [facility] Last Infusion: 07/20/25 20:31 Dose: Infused Insulin Human Lispro (Insulin Lispro 100 Unit/Ml 3 Ml Vial) 0 unit SUBCUT QIDACHS [facility]; Protocol Last Admin: 07/21/25 11:50 Dose: 2 unit Magnesium Hydroxide (Milk Of Magnesia 30 Ml Oral.Susp) 30 ml PO DAILY PRN PRN Reason: Constipation Melatonin (Melatonin 3 Mg Tablet) 6 mg PO BEDTIME PRN PRN Reason: Insomnia Metoprolol Tartrate (Metoprolol Tartrate 25 Mg Tablet) 25 mg PO BID [facility]; Protocol Last Admin: 07/21/25 08:48 Dose: 25 mg Ondansetron HCl (Ondansetron Hcl 4 Mg/2 Ml Vial) 4 mg IVPUSH Q8H PRN PRN Reason: Nausea and Vomiting Sacubitril/Valsartan (Sacubitril/Valsartan 49/51 1 Tab Tablet) 1 tab PO BID [facility]; Protocol Last Admin: 07/21/25 08:48 Dose: 1 tab Sodium Chloride (0.9 % Sodium Chloride Flush 3 Ml Syringe) [facility] Last Admin: 07/21/25 08:48 Dose: 3 ml Home Medications ?Medication ?Instructions ?Recorded ?Confirmed ?Last Taken ?Type apixaban 2.5 mg tablet (Eliquis) 2.5 mg PO BID 07/11/25 07/19/25 07/19/25 History insulin glargine 100 unit/mL (3 12 unit subcut BEDTIME 07/19/25 07/19/25 07/18/25 History mL) subcutaneous pen (Basaglar KwikPen U-100 Insulin) Physical Exam Vital Signs: Vital Signs: Last Vital Signs Temp 100.6 F H 07/21/25 08:11 Pulse 86 07/21/25 08:11 Resp 16 07/21/25 08:11 BP 137/65 07/21/25 08:11 Pulse Ox 94 07/21/25 08:11 O2 Del Method Room Air 07/21/25 08:11 O2 Flow Rate 2 07/21/25 08:11 BMI result Body Mass Index 31.5 Const: General: cooperative, alert, awake, in distress mild, ill appearing and tired appearing Nutritional Appearance: average body habitus Orientation/consciousness: patient oriented x3 HEENT: Head: Yes normocephalic and Yes atraumatic Neck: Neck: Yes trachea midline, Yes supple and Yes no JVD Resp: Effort & Inspection: normal respiratory effort Auscultation: crackles and diminished lung sounds Cardio: Rate: regular rate Rhythm: regular rhythm Heart sounds: S1 normal heart sound present, S2 normal heart sound present, no click, no gallops, no murmurs and no rubs GI: Auscultation: normal bowel sounds Skin: General skin exam: no rashes or lesions noted Neuro: General: patient oriented x3 and no focal motor deficits Extrem: General: Yes no clubbing, cyanosis or edema Objective Labs and Meds 07/20/25 04:25 07/21/25 06:50 Lab results: Laboratory Results - last 24 hr 07/20/25 07/20/25 07/21/25 16:50 20:55 06:50 Sodium 144 Potassium 4.2 Chloride 110 H Carbon Dioxide 23 Anion Gap 15 BUN 22 H Creatinine 1.34 Estim Creat Clear Calc 44.2 Estimated GFR 51 POC Glucose 101 173 H Random Glucose 72 Calcium 8.3 L B-Natriuretic Peptide 1931 H Respiratory Panel [place] Adenovirus (Rapid PCR) B.pert (TEM-PCR) B.parapertussis DNA PCR C. pneumoniae DNA (PCR) Coronavirus OC43 (PCR) Coronavirus HKU1 (PCR) Coronavirus 229E (PCR) Coronavirus NL63 (PCR) Human Metapneumovir PCR Influenza A (RT-PCR) Influenza A (H1) PCR Influ A (H1/) PCR Influenza A (H3) PCR Influenza B (RT-PCR) M. pneumoniae (PCR) Parainfluenza 1 (PCR) Parainfluenza 2 (PCR) Parainfluenza 3 (PCR) Parainfluenza 4 (PCR) RSV (PCR) Entero/Rhino (PCR) SARS-CoV-2 RNA (RT-PCR) 07/21/25 07/21/25 07/21/25 07:21 08:41 09:13 Sodium Potassium Chloride Carbon Dioxide Anion Gap BUN Creatinine Estim Creat Clear Calc Estimated GFR POC Glucose 63 116 H Random Glucose Calcium B-Natriuretic Peptide Respiratory Panel Br[place] See Note Adenovirus (Rapid PCR) Not Detected B.pert (TEM-PCR) Not Detected B.parapertussis DNA PCR Not Detected C. pneumoniae DNA (PCR) Not Detected Coronavirus OC43 (PCR) Not Detected Coronavirus HKU1 (PCR) Not Detected Coronavirus 229E (PCR) Not Detected Coronavirus NL63 (PCR) Not Detected Human Metapneumovir PCR Not Detected Influenza A (RT-PCR) Not Detected Influenza A (H1) PCR Not Detected Influ A () PCR Not Detected Influenza A (H3) PCR Not Detected Influenza B (RT-PCR) Not Detected M. pneumoniae (PCR) Not Detected Parainfluenza 1 (PCR) Not Detected Parainfluenza 2 (PCR) Not Detected Parainfluenza 3 (PCR) Not Detected Parainfluenza 4 (PCR) Not Detected RSV (PCR) Not Detected Entero/Rhino (PCR) Not Detected SARS-CoV-2 RNA (RT-PCR) Not Detected 07/21/25 11:36 Sodium Potassium Chloride Carbon Dioxide Anion Gap BUN Creatinine Estim Creat Clear Calc Estimated GFR POC Glucose 152 H Random Glucose Calcium B-Natriuretic Peptide Respiratory Panel [place] Adenovirus (Rapid PCR) B.pert (TEM-PCR) B.parapertussis DNA PCR C. pneumoniae DNA (PCR) Coronavirus OC43 (PCR) Coronavirus HKU1 (PCR) Coronavirus 229E (PCR) Coronavirus NL63 (PCR) Human Metapneumovir PCR Influenza A (RT-PCR) Influenza A (H1) PCR Influ A () PCR Influenza A (H3) PCR Influenza B (RT-PCR) M. pneumoniae (PCR) Parainfluenza 1 (PCR) Parainfluenza 2 (PCR) Parainfluenza 3 (PCR) Parainfluenza 4 (PCR) RSV (PCR) Entero/Rhino (PCR) SARS-CoV-2 RNA (RT-PCR) Assessment and Plan (1) Acute hypoxemic respiratory failure: Status: Acute Acute hypoxemic respiratory failure in his elderly gentleman with chronic underlying significant lung parenchymal disease presents with fever and shows with presence of multifocal pneumonia with rising BNP and persistent hypoxemia suggestive of possibly heart failure although this is difficult to evaluate clinically. He has no signs of fluid overload and his lung exams are suggestive of possible chronic lung disease although overlying heart failure is difficult to evaluate from pulmonary exam. Would agree with current management of IV diuresis with Lasix. Strict intake and output chart needs to be pursued. Continue with Jardiance as mentioned. Patient is at risk for heart failure given his underlying significant structural heart issues including CAD as well as paroxysmal atrial fibrillation and hypertension. Continue to supportive care for his pulmonary parenchymal disease and treat his pneumonia and febrile illness aggressively. Continue oxygen therapy. Incentive spirometry should be considered. Consider pulmonary consultation. Will follow with you Procedures Date of Service Date of Service: 07/21/25
[2025-07-21 15:07] VITALS: BP 135/59; PULSE 66; RESP 17; TEMP 36.6; O2SAT 100
[2025-07-21 16:21] LABS: Glucose, Whole Blood 118 mg/dL (60-115)
[2025-07-21 19:56] VITALS: BP 134/63; PULSE 64; RESP 18; TEMP 36.4; O2SAT 99
[2025-07-21 20:50] LABS: Glucose, Whole Blood 159 mg/dL (60-115)
[2025-07-22 03:34] VITALS: BP 128/63; PULSE 62; RESP 16; TEMP 36.4; O2SAT 96
[2025-07-22 05:28] VITALS: BMI 22.5
--- NOTE | 2025-07-22 07:00 | CA_ITS ---
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 There is mildly increased left ventricular wall thickness. The left ventricular systolic function is low normal. The visually estimated ejection fraction is between 50-55%. - E/E prime ratio is between 8 and 15 consistent with indeterminate filling pressures. - The basal inferior segment is akinetic. - Normal right ventricular cavity size and systolic function. Findings Left Ventricle Normal left ventricular cavity size. There is mildly increased left ventricular wall thickness. The left ventricular systolic function is low normal. The visually estimated ejection fraction is between 50-55%. There is evidence of regional wall motion abnormalities. Abnormal diastolic function is noted. Spectral Doppler is indicative of a pseudonormal filling pattern. E/E prime ratio is between 8 and 15 consistent with indeterminate filling pressures. Wall Motion Rest Echo Findings The basal inferior segment is akinetic. Right Ventricle Normal right ventricular cavity size and systolic function. Atria The left atrium is mildly dilated. The right atrium is normal in size. Aortic Valve Normal aortic valve structure and function. There is no aortic valve stenosis. There is trace (trivial) aortic valve regurgitation. Mitral Valve The mitral valve appears normal. There is trace mitral valve regurgitation. There is no mitral valve stenosis. Pulmonic Valve The pulmonic valve is normal. There is no pulmonic valve regurgitation. Tricuspid Valve Normal tricuspid valve structure. There is no tricuspid valve regurgitation. Normal right atrial pressure. There is no evidence of pulmonary hypertension. Great Vessels There is mild dilatation of the ascending aorta measuring 3.90 cm. The visualized portions of the pulmonary artery and branches are normal. Venous The inferior vena cava is normal in size and collapses greater than 50% with inspiration. Pericardium/Pleural There is no evidence of pericardial effusion. Prior Study Comparison Changes noted compared to prior study. EF 50-55%. Measurements 2D Linear Measurements IVSd: 1.20 0.6-0.9/0.6-1.0 cm LVIDd: 4.47 3.9-5.3/4.2-5.9 cm LVIDd Index: 2.61 2.4-3.2/2.2-3.1 cm/m2 LVIDs: 3.35 2.0-3.6 cm LVPWd: 1.25 0.7-1.1 cm Ao Root: 3.10 2.1-3.5 cm LA Diam: 3.20 2.7-3.8/3.0-4.0 cm LAIDs Index: 1.87 1.5-2.3 cm/m2 LV Mass: 251.74 67-162/88-224 g LV Mass Index: 147.22 43-95/49-115 g/m2 LVOT Diam: 2.00 3.0+(-)1.3 cm 2D Systolic Function EF 4C: 51.20 >55% EF 2C: 35.00 >55% EF BiP: 45.00 >55% Mitral Valve MV Pk E: 0.76 MV PK A: 0.49 MV Decel Time: 223.00 E/A: 1.60 E'Lateral: 8.49 E'Medial: 4.24 E/E' Med: 17.90 E/E' Lat: 8.90 PHT: 65.00 MVA PHT: 3.38 Decel [place]: 3.40 Aortic Valve AoV Pk Kel: 1.14 AoV Mn Kel: 0.93 AoV VTI: 0.31 AoV Pk Grad: 5.00 Aov Mn Grad: 4.00 RENETTA Cont.VTI: 1.57 LVOT LVOT Pk Kel: 0.70 LVOT Mn Kel: 0.45 LVOT VTI: 0.16 LVOT Pk Grad: 2.00 LVOT Mn Grad: 1.00 LVOT Diam: 2.00 LVOT Area: 3.14 Diastolic Function MV Pk E: 0.76 MV Pk A: 0.49 E/A: 1.60 E'Medial: 4.24 E/E' Med: 17.90 E' Laterial: 8.49 E/E' Lat: 8.90 Right Ventricle TAPSE (mm): 24.00 TVS' Kel: 11.00 Tricuspid Valve TR Pk Kel: 2.00 TR Pk Grad: 16.00 RA Press: 3.00 RVSP: 16.00 Great Vessels Aorta Ao Root-2D: 3.10 2.0-3.7 cm Ao Asc: 3.90 2.1-3.4 cm Pulmonary Valve PV Pk Kel: 0.74 Peak PV Grad: 2.00 Updated in Other Vendor System with Status of Final Ayad Nichols MD electronically signed on 07/22/2025 7:52:50 PM with status of Final
[2025-07-22 07:01] VITALS: BP 147/67; PULSE 66; RESP 14; TEMP 36.2; O2SAT 96
[2025-07-22 07:05] LABS: Anion Gap 14 (12-20); Blood Urea Nitrogen 26 mg/dL (9-16); Calcium 8.1 mg/dL (8.4-10.2); Carbon Dioxide 28 mmol/L (22-29); Chloride 105 mmol/L (96-108); Creatinine Clr Calc Pharmacy 34.5; Estimated Glomerular Filt Rate 46; Potassium 3.8 mmol/L (3.3-5.1); Sodium 143 mmol/L (135-145)
[2025-07-22 07:20] LABS: Glucose, Whole Blood 72 mg/dL (60-115)
[2025-07-22] MEDS: Sacubitril/Valsartan 49/51 1 TAB TABLET PO ×2 (07:29→20:48)
[2025-07-22] MEDS: Furosemide 40 MG/4 ML VIAL IVPUSH (07:29)
[2025-07-22] MEDS: 0.9 % Sodium Chloride Flush 3 ML SYRINGE IVFLUSH ×3 (07:30→20:53)
--- NOTE | 2025-07-22 08:42 | P.PNIM_ITS ---
Subjective Subjective Date of Service: 07/22/25 Review of Systems Follow up Resp failure, pneumonia Low grade temp this morning feels better ambulating Physical Exam 2 Exam: Exam: Appearing in no acute distress lung sounds dry crackles heart regular rate rhythm, clear S1, S2 positive bowel sounds, abdomen is soft, nontender neuro patient is alert x3, no focal deficits Vital Signs: Vital Signs: Last Vital Signs Temp 97.1 F 07/22/25 07:01 Pulse 66 07/22/25 07:01 Resp 14 07/22/25 07:01 BP 147/67 H 07/22/25 07:01 Pulse Ox 96 07/22/25 07:01 O2 Del Method Nasal Cannula 07/22/25 07:01 O2 Flow Rate 2 07/22/25 07:01 BMI result Body Mass Index 22.5 Objective Data Active Medications Acetaminophen (Acetaminophen 325 Mg Tablet) 650 mg PO Q6H PRN PRN Reason: Pain, Mild 1-3,fever,headache Al Hydroxide/Mg Hydroxide (Magnesium Hydrox/Alum Hydrox 30 Ml Oral.Susp) 30 ml PO Q4H PRN PRN Reason: Heartburn Allopurinol (Allopurinol 100 Mg Tablet) 100 mg PO DAILY [facility] Last Admin: 07/22/25 07:29 Dose: 100 mg Documented By: DERICK Apixaban (Apixaban 2.5 Mg Tablet) 2.5 mg PO BID [facility] Last Admin: 07/22/25 07:29 Dose: 2.5 mg Documented By: DERICK Atorvastatin Calcium (Atorvastatin Calcium 40 Mg Tablet) 40 mg PO BEDTIME [facility] Last Admin: 07/21/25 20:55 Dose: 40 mg Documented By: JUAN CARLOS Calcium Carbonate (Calcium Carbonate 750 Mg Tab.Chew) 750 mg PO Q4H PRN PRN Reason: Heartburn Ceftriaxone Sodium (Ceftriaxone Sodium 1 Gm Vial) 1 gm IVPUSH Q24H [facility] Last Admin: 07/21/25 12:42 Dose: 1 gm Documented By: YOHANNES Dextrose (Dextrose 50 % 25 Gm/50 Ml Syringe) 25 gm IVPUSH Q15M PRN; Protocol PRN Reason: per Hypoglycemia Standing Ord. Empagliflozin (Empagliflozin 10 Mg Tablet) 10 mg PO DAILY [facility] Last Admin: 07/22/25 07:29 Dose: 10 mg Documented By: DERICK Furosemide (Furosemide 40 Mg/4 Ml Vial) 40 mg IVPUSH BID@0900,1800 [facility]; Protocol Last Admin: 07/22/25 07:29 Dose: 40 mg Documented By: DERICK Glucose (Glucose Gel 15 Gm Gel..Gram.) 15 gm PO Q15M PRN; Protocol PRN Reason: per Hypoglycemia Standing Ord. Azithromycin 500 mg/ Sodium (Chloride) 250 mls @ 125 mls/hr IV Q24H [facility] Last Infusion: 07/21/25 19:32 Dose: Infused Documented By: JUAN CARLOS Insulin Human Lispro (Insulin Lispro 100 Unit/Ml 3 Ml Vial) 0 unit SUBCUT QIDACHS [facility]; Protocol Last Admin: 07/22/25 07:21 Dose: Not Given Documented By: DERICK Non-Admin Reason: No Insulin Coverage Magnesium Hydroxide (Milk Of Magnesia 30 Ml Oral.Susp) 30 ml PO DAILY PRN PRN Reason: Constipation Melatonin (Melatonin 3 Mg Tablet) 6 mg PO BEDTIME PRN PRN Reason: Insomnia Metoprolol Tartrate (Metoprolol Tartrate 25 Mg Tablet) 25 mg PO BID [facility]; Protocol Last Admin: 07/22/25 07:29 Dose: 25 mg Documented By: DERICK Ondansetron HCl (Ondansetron Hcl 4 Mg/2 Ml Vial) 4 mg IVPUSH Q8H PRN PRN Reason: Nausea and Vomiting Sacubitril/Valsartan (Sacubitril/Valsartan 49/51 1 Tab Tablet) 1 tab PO BID [facility]; Protocol Last Admin: 07/22/25 07:29 Dose: 1 tab Documented By: DERICK Sodium Chloride (0.9 % Sodium Chloride Flush 3 Ml Syringe) 3 ml IVFLUSH QSHIFT [facility] Last Admin: 07/22/25 07:30 Dose: 3 ml Documented By: DREICK Labs 07/20/25 04:25 07/22/25 05:40 Labs: Laboratory Results - last 24 hr 07/21/25 07/21/25 07/21/25 08:41 09:13 11:36 Hold Purple Top Anion Gap Estim Creat Clear Calc Estimated GFR POC Glucose 116 H 152 H Random Glucose Calcium Respiratory Panel [place] See Note Adenovirus (Rapid PCR) Not Detected B.pert (TEM-PCR) Not Detected B.parapertussis DNA PCR Not Detected C. pneumoniae DNA (PCR) Not Detected Coronavirus OC43 (PCR) Not Detected Coronavirus HKU1 (PCR) Not Detected Coronavirus 229E (PCR) Not Detected Coronavirus NL63 (PCR) Not Detected Human Metapneumovir PCR Not Detected Influenza A (RT-PCR) Not Detected Influenza A (H1) PCR Not Detected Influ A (H1/09) PCR Not Detected Influenza A (H3) PCR Not Detected Influenza B (RT-PCR) Not Detected M. pneumoniae (PCR) Not Detected Parainfluenza 1 (PCR) Not Detected Parainfluenza 2 (PCR) Not Detected Parainfluenza 3 (PCR) Not Detected Parainfluenza 4 (PCR) Not Detected RSV (PCR) Not Detected Entero/Rhino (PCR) Not Detected SARS-CoV-2 RNA (RT-PCR) Not Detected 07/21/25 07/21/25 07/22/25 16:16 20:46 05:40 Hold Purple Top SEE NOTE Anion Gap 14 Estim Creat Clear Calc 34.5 Estimated GFR 46 POC Glucose 118 H 159 H Random Glucose 69 Calcium 8.1 L Respiratory Panel [place] Adenovirus (Rapid PCR) B.pert (TEM-PCR) B.parapertussis DNA PCR C. pneumoniae DNA (PCR) Coronavirus OC43 (PCR) Coronavirus HKU1 (PCR) Coronavirus 229E (PCR) Coronavirus NL63 (PCR) Human Metapneumovir PCR Influenza A (RT-PCR) Influenza A (H1) PCR Influ A (H1/09) PCR Influenza A (H3) PCR Influenza B (RT-PCR) M. pneumoniae (PCR) Parainfluenza 1 (PCR) Parainfluenza 2 (PCR) Parainfluenza 3 (PCR) Parainfluenza 4 (PCR) RSV (PCR) Entero/Rhino (PCR) SARS-CoV-2 RNA (RT-PCR) 07/22/25 07:03 Hold Purple Top Anion Gap Estim Creat Clear Calc Estimated GFR POC Glucose 72 Random Glucose Calcium Respiratory Panel [place] Adenovirus (Rapid PCR) B.pert (TEM-PCR) B.parapertussis DNA PCR C. pneumoniae DNA (PCR) Coronavirus OC43 (PCR) Coronavirus HKU1 (PCR) Coronavirus 229E (PCR) Coronavirus NL63 (PCR) Human Metapneumovir PCR Influenza A (RT-PCR) Influenza A (H1) PCR Influ A (H1/09) PCR Influenza A (H3) PCR Influenza B (RT-PCR) M. pneumoniae (PCR) Parainfluenza 1 (PCR) Parainfluenza 2 (PCR) Parainfluenza 3 (PCR) Parainfluenza 4 (PCR) RSV (PCR) Entero/Rhino (PCR) SARS-CoV-2 RNA (RT-PCR) Microbiology Microbiology Results: Microbiology 07/19/25 12:34 Blood Culture - Preliminary Blood - Venous No growth after 48 hours. 07/19/25 12:34 Blood Culture - Preliminary Blood - Venous No growth after 48 hours. Assessment and Plan (1) Acute exacerbation of bronchiectasis: Status: Acute Plan 80 year old man admitted with Acute hypoxic respiratory failure and pneumonia Low grade temp ua neg, resp status not worsening, blood cx neg check RPP, maybe viral monitor Elevated BNP, acute CHF, unspecified continuous increase daily not in overt failure started IV lasix BID cardiology consult>continue diuresis, get echo -1.5L neg Acute hypoxic respiratory failure secondary to pneumonia cotninue Rocephin and Azithromycin Supplemental oxygen to keep oxygen sat >91% Duonebs as needed Transaminitis mildly elevated monitor Fever. resolved Secondary to pneumonia no sepsis TALA on CKD 3 ? fluid overload vs diuresis nephrology consultation Thrombocytopenia no acute bleeding chronic, not from sepsis Paroxysmal afib Continue BB and Eliquis DM2 ss, ada diet lantus DVT prophylaxis with Eliquis Full code Quality Stroke Does the patient have a stroke diagnosis?: No VTE Prior VTE?: No VTE Risk Level:: Medical - moderate - high VTE Device Contraindication: Treatment Not Indicated VTE Drug Contraindication: N/A - Med Ordered
--- NOTE | 2025-07-22 09:22 | P.CONNP_ITS ---
History of Present Illness Reason for Consult Consult date: 07/22/25 Chief Complaint Chief complaint: fever low oxygen History of Present Illness Narrative: 80 y/o male with recent dx CMML, HFrEF, CAD, NSTEMI, prostate CA s/p prostatectomy, asbestos exposure, COPD, prediabetes, HTN, CKD. Followed by Dr Vivas as outpatient. Presented 07/19 with weakness, fevers, hypoxia without leukocytosis. Being treated for pneumonia. Nephrology consulted for TALA. Patient states he is feeling how he usually feels, no new symptoms/concerns. States breathing feels comfortable (wearing supplemental O2). receiving lasix 40mg IVP BID, entresto. UOP 5,475mL over last 24 hours. states legs were swollen but better now. No pain. Denies urinary symptoms. Denies other symptoms/concerns. Review of Systems Constitutional: Reports lethargy Cardiovascular: Denies chest pain, Denies leg edema, Denies lightheadedness and Denies dyspnea Respiratory: Denies dyspnea Gastrointestinal: Denies abdominal pain, Denies diarrhea, Denies nausea and Denies vomiting Genitourinary: Denies hematuria, Denies oliguria, Denies dysuria and Denies flank pain Musculoskeletal: Denies joint swelling, Denies muscle cramps and Denies muscle weakness Skin/Breast: Denies rash PMFSH Past Medical History Medical History Hypoxia CKD (chronic kidney disease) stage 3, GFR 30-59 ml/min Heart failure with reduced ejection fraction Thrombocytopenia Diabetes 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 Father No problems noted. Surgical History Surgical History Stented coronary artery S/P cardiac cath History of colonoscopy (~10/27/16) Hx of cardiac cath Social History Social History Household Members: Family Housing: House Do you presently have visiting nurse or other home services: Yes (vna) Alcohol intake: current Alcohol intake frequency: holidays/special occasions only Patient Tobacco Use Status: Former Tobacco user e-Cigarette/Vaping Use: Former Use Second Hand Smoke Exposure: No Advance Directives Date on File: 09/13/24 service: No Current occupational status: retired and disabled Cognitive needs: Yes (cane) Hearing needs: No Vision needs: Yes (reading glasses) Meds Allergies Allergy/AdvReac Type Severity Reaction Status Date / Time No Known Allergies Allergy Verified 07/19/25 11:49 Active Medications: Current Medications Acetaminophen (Acetaminophen 325 Mg Tablet) 650 mg PO Q6H PRN PRN Reason: Pain, Mild 1-3,fever,headache Al Hydroxide/Mg Hydroxide (Magnesium Hydrox/Alum Hydrox 30 Ml Oral.Susp) 30 ml PO Q4H PRN PRN Reason: Heartburn Allopurinol (Allopurinol 100 Mg Tablet) 100 mg PO DAILY [facility] Last Admin: 07/22/25 07:29 Dose: 100 mg Apixaban (Apixaban 2.5 Mg Tablet) 2.5 mg PO BID [facility] Last Admin: 07/22/25 07:29 Dose: 2.5 mg Atorvastatin Calcium (Atorvastatin Calcium 40 Mg Tablet) 40 mg PO BEDTIME [facility] Last Admin: 07/21/25 20:55 Dose: 40 mg Calcium Carbonate (Calcium Carbonate 750 Mg Tab.Chew) 750 mg PO Q4H PRN PRN Reason: Heartburn Ceftriaxone Sodium (Ceftriaxone Sodium 1 Gm Vial) 1 gm IVPUSH Q24H [facility] Last Admin: 07/21/25 12:42 Dose: 1 gm Dextrose (Dextrose 50 % 25 Gm/50 Ml Syringe) 25 gm IVPUSH Q15M PRN; Protocol PRN Reason: per Hypoglycemia Standing Ord. Empagliflozin (Empagliflozin 10 Mg Tablet) 10 mg PO DAILY [facility] Last Admin: 07/22/25 07:29 Dose: 10 mg Furosemide (Furosemide 40 Mg/4 Ml Vial) 40 mg IVPUSH BID@0900,1800 [facility]; Protocol Last Admin: 07/22/25 07:29 Dose: 40 mg Glucose (Glucose Gel 15 Gm Gel..Gram.) 15 gm PO Q15M PRN; Protocol PRN Reason: per Hypoglycemia Standing Ord. Azithromycin 500 mg/ Sodium (Chloride) 250 mls @ 125 mls/hr IV Q24H [facility] Last Infusion: 07/21/25 19:32 Dose: Infused Insulin Human Lispro (Insulin Lispro 100 Unit/Ml 3 Ml Vial) 0 unit SUBCUT QIDACHS [facility]; Protocol Last Admin: 07/22/25 07:21 Dose: Not Given Magnesium Hydroxide (Milk Of Magnesia 30 Ml Oral.Susp) 30 ml PO DAILY PRN PRN Reason: Constipation Melatonin (Melatonin 3 Mg Tablet) 6 mg PO BEDTIME PRN PRN Reason: Insomnia Metoprolol Tartrate (Metoprolol Tartrate 25 Mg Tablet) 25 mg PO BID [facility]; Protocol Last Admin: 07/22/25 07:29 Dose: 25 mg Ondansetron HCl (Ondansetron Hcl 4 Mg/2 Ml Vial) 4 mg IVPUSH Q8H PRN PRN Reason: Nausea and Vomiting Sacubitril/Valsartan (Sacubitril/Valsartan 49/51 1 Tab Tablet) 1 tab PO BID [facility]; Protocol Last Admin: 07/22/25 07:29 Dose: 1 tab Sodium Chloride (0.9 % Sodium Chloride Flush 3 Ml Syringe) [facility] Last Admin: 07/22/25 07:30 Dose: 3 ml Home Medications ?Medication ?Instructions ?Recorded ?Confirmed ?Last Taken ?Type apixaban 2.5 mg tablet (Eliquis) 2.5 mg PO BID 5 07/19/25 07/19/25 History insulin glargine 100 unit/mL (3 12 unit subcut BEDTIME 07/19/25 07/19/25 07/18/25 History mL) subcutaneous pen (Basaglar KwikPen U-100 Insulin) Physical Exam Vital Signs: Last Vital Signs Temp 97.1 F 07/22/25 07:01 Pulse 66 07/22/25 07:01 Resp 14 07/22/25 07:01 BP 147/67 H 07/22/25 07:01 Pulse Ox 96 07/22/25 07:01 O2 Del Method Nasal Cannula 07/22/25 07:01 O2 Flow Rate 2 07/22/25 07:01 BMI result Body Mass Index 22.5 Const General: no acute distress, alert and awake Resp Effort & Inspection: normal respiratory effort and able to speak in complete sentences Auscultation: clear to auscultation bilaterally Cardio Rate: regular rate Rhythm: regular rhythm Heart sounds: S1 normal heart sound present and S2 normal heart sound present GI Palpation (GI): Soft to palpation and nontender Skin Rashes: no rashes Extrem General: No edema Results Lab Results 07/20/25 04:25 07/22/25 05:40 Lab results: Chemistry 07/19/25 07/20/25 07/21/25 12:08 04:25 06:50 Sodium 141 147 H 144 Potassium 3.9 3.8 4.2 Carbon Dioxide 21 L 25 23 BUN 26 H 26 H 22 H Creatinine 1.25 1.33 1.34 Calcium 8.1 L 7.9 L 8.3 L 07/22/25 05:40 Sodium 143 Potassium 3.8 Carbon Dioxide 28 BUN 26 H Creatinine 1.47 H Calcium 8.1 L Hematology 07/19/25 07/20/25 12:08 04:25 WBC 10.1 8.1 Hgb 12.0 L 10.9 L Plt Count 76 L 65 L Urinalysis 07/19/25 13:34 Urine Color Yellow Urine Appearance Clear Urine pH 5.5 Ur Specific [place] 1.020 Urine Protein Trace Urine Glucose (UA) >=1000 H Urine Ketones Negative Urine Blood Trace H Urine Nitrite Negative Ur Leukocyte Esterase Negative Urine RBC 0-2 Urine WBC 0-5 Ur Squamous Epith Cells 0-2 Hyaline Casts 0-2 Assessment and Plan (1) CKD stage 3 secondary to diabetes: Status: Acute Plan CKD at baseline, pateint here with pneumonia creatinine did trend up slightly, recommend cutting diuretic dose in half as patient voided over 5L yesterday and does not appear overloaded today recommend avoiding nephrotoxins monitor I&O's while hospitalized Patient has an appointment already scheduled with his primary wax specialist, Dr Vivas, next month. Discussed with Dr Farfan. Procedures Date of Service Date of Service: 07/22/25
[2025-07-22 11:03] LABS: Glucose, Whole Blood 175 mg/dL (60-115)
--- NOTE | 2025-07-22 12:43 | PM.PNCARD ---
Subjective Subjective Date of Service: 07/22/25 Interval history: Seen examined at bedside. Denying any shortness of breath. Continues to be fatigued. Physical Exam Vital Signs: Last Vital Signs Temp 97.1 F 07/22/25 07:01 Pulse 66 07/22/25 07:01 Resp 14 07/22/25 07:01 BP 147/67 H 07/22/25 07:01 Pulse Ox 96 07/22/25 07:01 O2 Del Method Nasal Cannula 07/22/25 07:01 O2 Flow Rate 2 07/22/25 07:01 BMI result Body Mass Index 22.5 GENERAL APPEARANCE: in no acute distress, ill-appearing. NECK: no carotid bruit, no jugular venous distention. SKIN: no suspicious lesions, warm and dry. HEART: no murmurs, regular rate and rhythm. LUNGS: clear to auscultation bilaterally. ABDOMEN: soft, nontender. EXTREMITIES: no edema. PERIPHERAL PULSES: equal. NEUROLOGIC: No gross deficits, AAO X 3 Objective Labs and Meds 07/20/25 04:25 07/22/25 05:40 Lab results: Laboratory Results - last 24 hr 07/21/25 07/21/25 07/22/25 16:16 20:46 05:40 Hold Purple Top SEE NOTE Sodium 143 Potassium 3.8 Chloride 105 Carbon Dioxide 28 Anion Gap 14 BUN 26 H Creatinine 1.47 H Estim Creat Clear Calc 34.5 Estimated GFR 46 POC Glucose 118 H 159 H Random Glucose 69 Calcium 8.1 L 07/22/25 07/22/25 07:03 10:59 Hold Purple Top Sodium Potassium Chloride Carbon Dioxide Anion Gap BUN Creatinine Estim Creat Clear Calc Estimated GFR POC Glucose 72 175 H Random Glucose Calcium Progress Note: A&P Assessment and plan (1) Acute hypoxemic respiratory failure: Status: Acute Plan [age] year gentleman with multiple comorbidities including coronary disease with previous PCI, chronic kidney disease, diabetes, myelodysplastic syndrome and 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 He is presenting again with fatigue and shortness of breath and has multifocal pneumonia along with congestive heart failure. He is on antibiotics. Clinically appears to be euvolemic and I think we can transition him to oral diuretics. Continue Entresto, metoprolol and Jardiance as before. 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 I think if his platelet counts are 50,000 or below we should be careful with Eliquis and probably hold it. Would favor starting him on 40 mg of Lasix daily on discharge. Thank you for allowing me to participate in the care of your patient. Please feel free to contact me if you have any questions. Time Spent With Patient Time: Total time managing care of this patient today ____ minutes. Progress Note: Quality Stroke Does the patient have a stroke diagnosis?: No Procedures Date of Service Date of Service: 07/22/25
[2025-07-22 15:24] VITALS: BP 133/59; PULSE 69; RESP 18; TEMP 36.2; O2SAT 97
[2025-07-22 16:19] LABS: Glucose, Whole Blood 143 mg/dL (60-115)
[2025-07-22 18:07] LABS: B Type Natriuretic Peptide 815 pg/mL (<100)
[2025-07-22 19:43] VITALS: BP 131/82; PULSE 83; RESP 18; TEMP 36.3; O2SAT 96
[2025-07-22 20:26] LABS: Glucose, Whole Blood 177 mg/dL (60-115)
[2025-07-23 03:44] VITALS: BP 105/60; PULSE 80; RESP 18; TEMP 36.7; O2SAT 93
[2025-07-23 07:13] VITALS: BP 119/61; PULSE 64; RESP 16; TEMP 36.6; O2SAT 95
[2025-07-23 07:28] LABS: Glucose, Whole Blood 101 mg/dL (60-115)
[2025-07-23 08:19] VITALS: PULSE 66; PULSE 72; PULSE 76; PULSE 79; O2SAT 83; O2SAT 86; O2SAT 88
[2025-07-23] MEDS: 0.9 % Sodium Chloride Flush 3 ML SYRINGE IVFLUSH (08:21)
[2025-07-23] MEDS: Sacubitril/Valsartan 49/51 1 TAB TABLET PO (08:21)
--- NOTE | 2025-07-23 08:51 | P.DS_ITS ---
DS: Providers Provider Date of Service: 07/23/25 Date of admission: 07/19/25 16:10 Date of discharge: 07/23/25 Primary care physician: Kobe Christian MD Consults: 07/21/25 08:30 Consult to Cardiology Routine Consulting Provider: [facility] Reason for consultation: acute CHF 07/22/25 08:46 Consult to Nephrology Routine Consulting Provider: [facility] Reason for consultation: tala on ckd DS: Diagnosis Discharge Diagnosis (1) Acute hypoxemic respiratory failure: Status: Acute DS: Summary Hospital Course Hospital Course: 80-year-old male presented to the ED with his son with weakness and low energy. He was found to be febrile and was noted to be hypoxic at 89%. He was noted to have fever but no leukocytosis, looks like chronic platelets with no acute bleeding. He denied chest pain. nausea, vomiting, diarrhea, recent travel, sick contacts. Amaral's at recently admitted and treated for bronchitis and pneumonia. Chest CT showed increased bibasilar pneumonia with partial resolution of previously seen diffuse bilateral pneumonia, asbestos related pleural disease, small amount of perihepatic ascites. He did have fever of 1 01.7, no leukocytosis, chronic thrombocytopenia, BNP 1245, not appearing to be in heart failure. He received 2 L of IV fluid in the ER, Rocephin, doxycycline. He will be admitted for further management and treatment of recurrent pneumonia. 80-year-old man treated for acute hypoxic respiratory failure secondary to pneumonia with history of asbestos exposure and bronchiectasis. Patient treated with IV Rocephin and azithromycin, oxygen and DuoNeb treatments. At this time patient is stable but we will require 2 L of oxygen via nasal cannula at all times for now. Discussed this with patient's son. He is aware that he should avoid direct flames and no smoking. He will be monitoring his oxygen saturations to share with his primary care provider for management of oxygen use. He was also noted to have elevated BNP and was treated with IV Lasix for 2 days but he never appeared to be in overt failure. Discussed case with Cardiology who stated that patient appeared to be euvolemic and did not require IV Lasix. Plan will be for patient to go home with Lasix 20 mg every other day and follow up with Cardiology for management of this medication. Echocardiogram showed EF of 50-55%. Continue Entresto. Patient also treated for TALA on CKD stage 3, likely related to IV diuretics, at baseline. Transaminitis. Mildly elevated Fever. Likely secondary to pneumonia, no sepsis Thrombocytopenia. No acute bleeding, chronic Paroxysmal atrial fibrillation. Continue beta-lilli and Eliquis Diabetes mellitus type 2. Continue home medications. Time Attestation Discharge Coordination Time (in mins): 45 Quality: Safe Use of Opioids Does Pt have an Active Cancer Diagnosis on the Problem List?: No Quality: Stroke Does the patient have a stroke diagnosis?: No Physical Exam Exam: Exam: Appearing in no acute distress head is normocephalic atraumatic eyes pupils are PERRLA sclera is anicteric mouth throat mucous membranes are intact and moist neck is supple no lymphadenopathy, no JVD noted lung sounds are clear to auscultation heart regular rate rhythm, clear S1, S2 positive bowel sounds, abdomen is soft, nontender neuro patient is alert x3, no focal deficits Vital Signs: Vital Signs: Last Vital Signs Temp 97.8 F 07/23/25 07:13 Pulse 64 07/23/25 07:13 Resp 16 07/23/25 07:13 BP 119/61 07/23/25 07:13 Pulse Ox 95 07/23/25 07:13 O2 Del Method Nasal Cannula 07/23/25 07:13 O2 Flow Rate 2 07/23/25 07:13 BMI result Body Mass Index 22.5 DS: Data Data Completed and Pending Completed studies during hospitalization [Text1]: Procedures Transfusion of Nonautologous Globulin into Peripheral Vein, Percutaneous Approach (06/15/25) Transfusion of Nonautologous Platelets into Peripheral Vein, Percutaneous Approach (06/15/25) Transfusion of Nonautologous Red Blood Cells into Peripheral Vein, Percutaneous Approach (06/15/25) Labs on day of discharge: Laboratory Results - last 24 hr 07/22/25 07/22/25 07/22/25 10:59 16:12 17:31 POC Glucose 175 H 143 H B-Natriuretic Peptide 815 H 07/22/25 07/23/25 20:19 07:15 POC Glucose 177 H 101 B-Natriuretic Peptide Preliminary micro results at discharge 07/19/25 12:34 Blood Culture - Preliminary Blood - Venous No growth after 48 hours. 07/19/25 12:34 Blood Culture - Preliminary Blood - Venous No growth after 48 hours. Discharge Plan Discharge Anticipated Discharge Date/Time: 07/23/25 08:37 Patient Disposition: Home Health Service Discharge Diagnosis: Acute hypoxic respiratory failure secondary to pneumonia and congestive heart failure Transaminitis TALA on CKD stage 3 Referrals: Kobe Christian MD [Primary Care Provider, Internal Medicine] - 1 Week Discharge Medications: New cefuroxime axetil 500 mg tablet 500 mg PO BID Qty: 6 0RF azithromycin 500 mg tablet 500 mg PO DAILY 3 Days Qty: 3 0RF furosemide [Lasix] 20 mg tablet 20 mg PO Q OTHER DAY Qty: 30 0RF Continued atorvastatin 40 mg tablet 40 mg PO BEDTIME Qty: 90 3RF metoprolol tartrate 25 mg tablet 25 mg PO BID Qty: 180 3RF Protocol: Hold for SBP/HR < HOLD for SBP < : 90 HOLD for HR < : 60 allopurinol 100 mg Tablet 100 mg PO DAILY Qty: 30 1RF sacubitril-valsartan [Entresto] 49-51 mg Tablet 1 tab PO BID Qty: 90 0RF Protocol: Hold for SBP< HOLD for SBP < : 90 insulin glargine [Basaglar KwikPen U-100 Insulin] 100 unit/mL (3 mL) insulin pen 12 unit subcut BEDTIME Jardiance 10 mg tablet 10 mg PO DAILY Qty: 30 5RF Eliquis 2.5 mg tablet 2.5 mg PO BID (DME) Accu-Chek Guide test strips Strip Qty: 300 3RF Rx Instructions: 3 times per day or as directed (DME) blood-glucose meter [Accu-Chek Guide Glucose Meter] Misc Qty: 1 0RF Rx Instructions: 3 times a day or As Directed (DME) lancets [Accu-Chek Softclix Lancets] Misc Qty: 300 3RF Rx Instructions: 3 times a day (DME) pen needle, diabetic 31 gauge x 3/16 needle See Rx Instructions .Route Qty: 100 3RF Rx Instructions: once daily Discharge Orders: Discharge Order (Routine); Ordered 07/23/25 Ordered By: Dalia Rebolledo Diet: Advance to usual diet Activity on Discharge: As tolerated Stand Alone Forms: Patient Portal Discharge page Print Language: Bengali Care Plan Goals: Complete antibiotic therapy Take Lasix 20 mg every other day You have been started on oxygen 2 L nasal cannula. Avoid direct flame, no smoking Health Concerns: Acute hypoxic respiratory failure secondary to pneumonia and congestive heart failure Transaminitis TALA on CKD stage 3 Plan of Treatment: Follow up with primary care provider as needed Take all medications as prescribed Assessment: See discharge summary
--- NOTE | 2025-07-23 09:23 | MHC.CM.PN ---
Patient medically cleared for dc home w/ resumption of [facility] + VNA and new O2. Son to transport. IMM delivered.
--- NOTE | 2025-07-23 10:20 | PM.PNCARD ---
Subjective Subjective Date of Service: 07/23/25 Interval history: Seen examined at bedside. He is on supplemental oxygen and apparently qualify for oxygen due to his lung disease and will be going home with oxygen. Physical Exam Vital Signs: Last Vital Signs Temp 97.8 F 07/23/25 07:13 Pulse 64 07/23/25 07:13 Resp 16 07/23/25 07:13 BP 119/61 07/23/25 07:13 Pulse Ox 95 07/23/25 07:13 O2 Del Method Nasal Cannula 07/23/25 07:13 O2 Flow Rate 2 07/23/25 07:13 BMI result Body Mass Index 22.5 GENERAL APPEARANCE: in no acute distress, ill-appearing. NECK: no carotid bruit, no jugular venous distention. SKIN: no suspicious lesions, warm and dry. HEART: no murmurs, regular rate and rhythm. LUNGS: clear to auscultation bilaterally. ABDOMEN: soft, nontender. EXTREMITIES: no edema. PERIPHERAL PULSES: equal. 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 He is presenting again with fatigue and shortness of breath and has multifocal pneumonia along with congestive heart failure. He is on antibiotics. Clinically appears to be euvolemic and I think we can transition him to oral diuretics. Continue Entresto, metoprolol and Jardiance as before. 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 I think if his platelet counts are 50,000 or below we should be careful with Eliquis and probably hold it. He should go home on p.o. diuretics. Thank you for allowing me to participate in the care of your patient. Please feel free to contact me if you have any questions. Time Spent With Patient Time: Total time managing care of this patient today ____ minutes. Progress Note: Quality Stroke Does the patient have a stroke diagnosis?: No Procedures Date of Service Date of Service: 07/23/25
[2025-07-23 10:23] VITALS: BP 98/56; PULSE 60; RESP 18; TEMP 36.3; O2SAT 98
== END 2025-07-23 11:34 | disposition home health service (06) | DRG 193 ==
LOC: HO.ED 16:13 → HO.EDOVER 16:45 → HO.S3 19:52 → HO.EDOVER 20:05 → HO.S3 07-20 19:41
PROVIDERS: Physician Assistant; Admitting Provider Nurse Practitioner Acute Care; Emergency Provider Emergency Medicine; PCP Internal Medicine; Visit Provider Nurse Practitioner Acute Care
DX: J18.9 Pneumonia, unspecified organism (principal); J96.01 Acute respiratory failure with hypoxia; I13.0 Hypertensive heart and chronic kidney disease with heart failure and stage 1 through stage 4 chronic kidney disease, or unspecified chronic kidney disease; I50.22 Chronic systolic (congestive) heart failure; J47.0 Bronchiectasis with acute lower respiratory infection; N17.9 Acute kidney failure, unspecified; C93.10 Chronic myelomonocytic leukemia not having achieved remission; J61 Pneumoconiosis due to asbestos and other mineral fibers; N18.30 Chronic kidney disease, stage 3 unspecified; I25.10 Atherosclerotic heart disease of native coronary artery without angina pectoris; D69.6 Thrombocytopenia, unspecified; I48.0 Paroxysmal atrial fibrillation; D46.9 Myelodysplastic syndrome, unspecified; E11.22 Type 2 diabetes mellitus with diabetic chronic kidney disease; T50.2X5A Adverse effect of carbonic-anhydrase inhibitors, benzothiadiazides and other diuretics, initial encounter; Z85.46 Personal history of malignant neoplasm of prostate; Z95.5 Presence of coronary angioplasty implant and graft; Z20.822 Contact with and (suspected) exposure to COVID-19; Z87.891 Personal history of nicotine dependence; Z79.4 Long term (current) use of insulin; Z79.899 Other long term (current) drug therapy
CPT/HCPCS: 36415; 71045; 71250; 80048; 80053; 81001; 82803; 82947; 83605; 83690; 83880; 85025; 85027; 86850; 86900; 86901; 87040; 87633; 87637; 93005; 93306; 97162; 99285; J0456; J0696; J1271; J1938; J7120; Q9957

== ENCOUNTER → 2025-07-19 11:49 | Outpatient (BNV) | payer BC, MEDICARE, SELFPAY | PROVIDERS: Admitting Provider Nurse Practitioner Acute Care; Emergency Provider Emergency Medicine; PCP Internal Medicine; Visit Provider Internal Medicine | DX: R53.1 Weakness (principal) | CPT/HCPCS: 93010 ==

== ENCOUNTER → 2025-07-19 11:49 | Outpatient (BNV) | payer BC, MEDICARE, SELFPAY | PROVIDERS: Emergency Provider Emergency Medicine; PCP Internal Medicine; Visit Provider Radiology Diagnostic Radiology | DX: J18.9 Pneumonia, unspecified organism (principal); I25.10 Atherosclerotic heart disease of native coronary artery without angina pectoris; R18.8 Other ascites; R53.1 Weakness | CPT/HCPCS: 71045; 71250 ==

== ENCOUNTER 2025-07-19 16:10 | Outpatient (BNV) | payer MEDICARE, BC, SELFPAY | END 2025-07-22 07:00 | PROVIDERS: Admitting Provider Nurse Practitioner Acute Care; Emergency Provider Emergency Medicine; PCP Internal Medicine; Visit Provider Internal Medicine Cardiovascular Disease | DX: I51.89 Other ill-defined heart diseases (principal) | CPT/HCPCS: 93306 ==

== ENCOUNTER → 2025-07-19 16:10 | Outpatient (BNV) | payer MEDICARE, BC, SELFPAY | PROVIDERS: Admitting Provider Nurse Practitioner Acute Care; Emergency Provider Emergency Medicine; PCP Internal Medicine; Visit Provider Internal Medicine Cardiovascular Disease | DX: J96.01 Acute respiratory failure with hypoxia (principal) | CPT/HCPCS: 99232 ==

== ENCOUNTER → 2025-07-19 16:10 | Outpatient (BNV) | payer MEDICARE, BC, SELFPAY | PROVIDERS: Admitting Provider Nurse Practitioner Acute Care; Emergency Provider Emergency Medicine; PCP Internal Medicine; Visit Provider Nurse Practitioner Family | DX: E11.22 Type 2 diabetes mellitus with diabetic chronic kidney disease (principal); N18.30 Chronic kidney disease, stage 3 unspecified | CPT/HCPCS: 99221 ==

== ENCOUNTER → 2025-07-19 16:10 | Outpatient (BNV) | payer BC, MEDICARE, SELFPAY | PROVIDERS: Admitting Provider Nurse Practitioner Acute Care; Emergency Provider Emergency Medicine; PCP Internal Medicine; Visit Provider Nurse Practitioner Acute Care | DX: J47.1 Bronchiectasis with (acute) exacerbation (principal) | CPT/HCPCS: 99223; 99232; 99239 ==

== ENCOUNTER 2025-08-01 15:33 | Outpatient (AMB) | payer MEDICARE, BC, SELFPAY ==
--- NOTE | 2025-08-01 15:35 | MHC.PC.OV ---
Vital Signs 08/01/25 15:37 Height 5 ft 7 in Weight 64.41 kg BMI 22.2 BP 112/56 L Respiration 16 Pulse 61 Pulse Source Pulse Oximeter Temp 97.3 F Temp Source Temporal Artery Scan Pulse Oximetry (%) 99 Oxygen Delivery Method Room Air Intake Visit Reasons: Hospital Discharge Manager Audit Required: No Accompanied by: Son Allergies No Known Allergies Allergy (Verified 08/01/25 15:38) Medication List - Last Reconciled 08/01/25 by RUBÉN Alan Accu-Chek Guide Glucose Meter (blood-glucose meter) 3 times a day or As Directed NS Accu-Chek Guide test strips (blood sugar diagnostic) 3 times per day or as directed NS Accu-Chek Softclix Lancets (lancets) 3 times a day NS allopurinol 100 mg PO DAILY apixaban (Eliquis) 2.5 mg PO BID atorvastatin 40 mg PO BEDTIME empagliflozin (Jardiance) 10 mg PO DAILY furosemide (Lasix) 20 mg PO Q OTHER DAY insulin glargine (Basaglar KwikPen U-100 Insulin) 7 units (0.07 mL) subcut QPM 30 days metoprolol tartrate 25 mg See Protocol PO BID pen needle, diabetic once daily sacubitril-valsartan 49-51 mg (Entresto) 1 tab See Protocol PO BID Tobacco use date assessed: 07/03/25 Dental Screening Dental Screen Date: 07/03/25 HPI HPI Comments History of Present Illness Details 80-year-old male presented to the ED with his son with weakness and low energy. He was found to be febrile and was noted to be hypoxic at 89%. He was noted to have fever but no leukocytosis, looks like chronic platelets with no acute bleeding. He denied chest pain. nausea, vomiting, diarrhea, recent travel, sick contacts. Am[facility]al's at recently admitted and treated for bronchitis and pneumonia. Chest CT showed increased bibasilar pneumonia with partial resolution of previously seen diffuse bilateral pneumonia, asbestos related pleural disease, small amount of perihepatic ascites. He did have fever of 101.7, no leukocytosis, chronic thrombocytopenia, BNP 1245, not appearing to be in heart failure. He received 2 L of IV fluid in the ER, Rocephin, doxycycline. He will be admitted for further management and treatment of recurrent pneumonia. 80-year-old man treated for acute hypoxic respiratory failure secondary to pneumonia with history of asbestos exposure and bronchiectasis. Patient treated with IV Rocephin and azithromycin, oxygen and DuoNeb treatments. At this time patient is stable but we will require 2 L of oxygen via nasal cannula at all times for now. Discussed this with patient's son. He is aware that he should avoid direct flames and no smoking. He will be monitoring his oxygen saturations to share with his primary care provider for management of oxygen use. He was also noted to have elevated BNP and was treated with IV Lasix for 2 days but he never appeared to be in overt failure. Discussed case with Cardiology who stated that patient appeared to be euvolemic and did not require IV Lasix. Plan will be for patient to go home with Lasix 20 mg every other day and follow up with Cardiology for management of this medication. Echocardiogram showed EF of 50-55%. Continue Entresto. 80-year-old male with history of type 2 diabetes, atrial fibrillation, hyperlipidemia, coronary artery disease, COPD prostate CA s/p prostatectomy, NSTEMI, CAD, HFrEF, recent dx of CML MDS/MPN, s/p bone marrow transplant presenting to the office today accompanied by his son for hospital discharge follow-up. He was recently in the hospital from 06/15/25- 06/28/25 with acute hypoxia requiring supplemental O2. He had received CML treatment through his oncologist on 06/09-06/13, [address] chest demonstrated multifocal infiltrates. He was started on empiric antibiotics and also treated with high-dose steroids for presumed pneumonitis secondary to 5 azacitidine. He had echocardiogram, found to have stable cardiomyopathy. He was diuresed and seen by Cardiology. He had rate controlled paroxysmal atrial fibrillation. He received multiple units of platelet and blood transfusion and treatment for his thrombocytopenia with IVIG and a dose of romiplostim. He was then hospitalized again from 07/19-07/23 due to pneumonia and exacerbation of bronchiectasis with acute hypoxemic respiratory failure. He was treated empirically with IV Rocephin and azithromycin and also received DuoNebs. He required supplemental O2 was also discharged on 2 L. he did have elevated BNP but was never thought to be in overt heart failure. Cardiology was consulted who felt the patient appeared to be euvolemic and did not require IV Lasix. Prior to hospitalization his lasix was discontinued due to elevated renal function and lack of symptoms. However, he was discharged on Lasix 20 mg daily every other day. He has chronic thrombocytopenia but no worsening in hospitalization. Discharged home with cefuroxime and azithromycin as well as Lasix every other day as mentioned. He did complete course. He does feel better, but reports baseline he feels generally unwell secondary to his chemotherapy as well as other comorbidities. CML/thrombocytopenia- follows with Dr. Heck. Pneumonitis secondary to azacitidine. Switching to ducitadine. Platelets stable Type 2 diabetes-last hemoglobin A1c 5.3%. Continues on metformin 1000 mg twice daily. Up-to-date on eye exams. Paroxysmal atrial fibrillation-rate controlled. On Eliquis for anticoagulation and metoprolol for rate control. Denies any bleeding or easy bruisability. Coronary artery disease-H/O NSTEMI s/p cardiac catheterization with DCS to the proximal left circumflex and RCA. On Eliquis and Plavix. Following with cardiology. No dyspnea on exertion, orthopnea, palpitations, shortness of breath, chest pain. Continues with cardiac rehab COPD- exacerbation as above Compliant with Arnuity Ellipta. Rarely requires use of albuterol CKD stage 3- cc/gfr and creat stable. Following with Nephrology ROS: See HPI EXAM: Constitutional - Awake and Alert, No apparent distress Eyes - PERRL Cardiovascular - S1S2, RRR, No edema Respiratory - Normal lung expansion, Normal respiratory effort, No respiratory distress, CTA bilaterally . 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 Father No problems noted. Social History Household Members: Family Housing: House Do you presently have visiting nurse or other home services: Yes (vna) Alcohol intake: current Alcohol intake frequency: holidays/special occasions only Patient Tobacco Use Status: Former Tobacco user e-Cigarette/Vaping Use: Former Use Second Hand Smoke Exposure: No Advance Directives Date on File: 09/13/24 service: No Current occupational status: retired and disabled Cognitive needs: Yes (cane) Hearing needs: No Vision needs: Yes (reading glasses) Questionnaire Thrive Questionnaire Date Thrive assessed: 07/21/25 CHACE-7 AMB Questionnaire CHACE-7 Date CHACE - 7 assessed: 07/03/25 Source: Developed by Drs. Ezio Dueñas, Sussy Mcpherson, Brendan Mckeon and colleagues, with an educational aicha from [employer]. Physical exam (Primary Care) Vital Signs: Last Vital Signs Temp 97.3 F 08/01/25 15:37 Pulse 61 08/01/25 15:37 Resp 16 08/01/25 15:37 BP 112/56 L 08/01/25 15:37 Pulse Ox 99 08/01/25 15:37 Oxygen Delivery Method Room Air 08/01/25 15:37 BMI result Body Mass Index 22.2 Tobacco/Smoking Status: Tobacco use Status Tobacco use date assessed 07/03/25 08/01/25 15:48 Patient Tobacco Use Status Former Tobacco user 08/01/25 15:48 e-Cigarette/Vaping Use Former Use 08/01/25 15:48 Thrive Assessment: Date of Thrive Assessment Date Thrive assessed 07/21/25 08/01/25 15:48 Coding Level of Care Code Est Pt Level 4 (58853) Complex EM visit Add On G2211 Diagnoses Hospital discharge follow-up Z09 Type 2 diabetes mellitus with stage 3 chronic kidney disease, with long-term current use of insulin, unspecified whether stage 3a or 3b CKD E11.22; N18.30; Z79.4 Diabetes mellitus type: type 2 Diabetes mellitus assisted insulin use: with terminal system operator use Diabetes mellitus complication status: with kidney complications Diabetes mellitus complication detail: with chronic kidney disease Chronic kidney disease stage: stage 3 (moderate) Chronic kidney disease stage 3 subtype: unspecified whether 3a or 3b Thrombocytopenia D69.6 Chronic hypoxemic respiratory failure J96.11 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 Completed course of antibiotics. Pneumonia resolved. Continue with 2 L supplemental O2 for chronic hypoxemic respiratory failure. Continue inhalers and follow-up with pulmonology (2) Diabetes: Code(s): E11.9 - Type 2 diabetes mellitus without complications Category: Medical Qualifiers: Diabetes mellitus type: type 2 Diabetes mellitus assisted insulin use: with terminal system operator use Diabetes mellitus complication status: with kidney complications Diabetes mellitus complication detail: with chronic kidney disease Chronic kidney disease stage: stage 3 (moderate) Chronic kidney disease stage 3 subtype: unspecified whether 3a or 3b Qualified Code(s): E11.22 - Type 2 diabetes mellitus with diabetic chronic kidney disease; N18.30 - Chronic kidney disease, stage 3 unspecified; Z79.4 - long term (current) use of insulin Plan: Controlled. Recommend changing Basaglar 7 units to am to reduce the risk of overnight hypoglycemia. Continue Jardiance. Diabetic diet. Continue with annual eye exams (3) Thrombocytopenia: Code(s): D69.6 - Thrombocytopenia, unspecified Category: Medical Plan: Chronic. Continue following with Hematology. Stable platelet counts. 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 Continue with therapies. Present weekly for blood work. Plan Follow-up in the office in 2 months as scheduled. Medications: Changed From insulin glargine (Basaglar KwikPen U-100 Insulin) 7 units (0.07 mL) subcut QPM 30 days 2.1 mL 0RF To insulin glargine (Basaglar KwikPen U-100 Insulin) 7 units (0.07 mL) subcut QAM 15 mL 3RF 30 days
[2025-08-01 15:37] VITALS: BP 112/56; PULSE 61; RESP 16; TEMP 36.3; O2SAT 99; BMI 22.2
--- OUTSIDE RECORDS SUMMARY | 2025-08-01 17:43 | XMS_ITS | Clinical Summary ---
Author Organization [facility] Facility Address [address] [place] [id number] Care Team Providers Care Pet Feeder Name Role Phone Mode Thompson MD Primary Care Provider [phone] Allergies No known active allergies Medications metFORMIN [...] age to complete this topic Insurance Medicare [facility] Medicare BCBS [place] Care Teams Pet Feeder Relationship Specialty Start Date End Date Mode Thompson MD [address] [place] [address] [id number] [place], [place] PCP - General 11/30/20
--- OUTSIDE RECORDS SUMMARY | 2025-08-01 17:43 | XMS_ITS | Patient Health Record ---
Author Organization [facility] Address [address] [place] [address] Care Team Providers Care Rn Oncology Research Name Role Phone Donna (RETIRED) Mode VAZQUEZ Primary Care Provide r Unavailable Ezio Mendez Unavailable [phone] Reason For Referral No Information Medications Medication SIG (Take, Route, Frequency, Duration) Notes Start Date End Date Status metFORMIN HCl 500 MG 1 tablet with meals Orally Twice a day Active Aspirin Adult Low Dose 81 MG 1 tablet Orally Once a day A ctive Problems Problem Type SNOMED Code ICD Code Onset Dates Problem Status W/U Status Risk Notes Problem 158892617 Encounter for screening for malignant neoplasm of colon (Z12.11) Active confirmed Problem Screening for malignant neoplasm of rectum (145577733) Encounter for screening for malignant neoplasm of rectum (Z12.12) Active confirmed Problem [id number] Elevated liver enzymes (R74.8) Active confirmed Problem 30882862 Iron excess (E83.19) Active confirmed Plan Of Treatment Pending Test Test Name Order Date [id number] (A1A) 08/07/2016 MITOCHONDRIAL AB 08/07/2016 SMOOTH MUSCLE ANTIBODIES 08/07/2016 HEMOCHROMATOSIS (C282Y) 08/07/2016 FLUOR. ANTINUCLEAR AB SCREEN (KERWIN) 07/21 Future Test Test Name Order Date COLONOSCOPY 07/29/2016 Insurance Providers Payer Name Payer Address Payer Phone Subscriber Number Group Number Insured Name Patient Relationship to Insured Coverage Start Date Coverage End Date MEDICARE OF [place] [address] [place] [address] [id number] DWAYNE GARNER Self - patient is the insured HMO [employer] CLAIM[employer] [address] [place] [address] [id number] DWAYNE GARNER Self - patient is the insured Medical (General) History Medical History History ICD Code Prostate cancer in 2008--surgery as stephen carrasco Denies GA,CVA,Lung disease,renal disease NIDDM Negative colonosc[place] [address] Elaine vargas Surgical History Surgery Date(Month/Year) Radical prosatatectomy in 2006 Tonsillectomy
== END 2025-08-01 16:52 | disposition home or self-care (01) ==
LOC: HO.HMCHD 15:34
PROVIDERS: PCP Internal Medicine; Visit Provider Physician Assistant
DX: Z09 Encounter for follow-up examination after completed treatment for conditions other than malignant neoplasm (principal); E11.22 Type 2 diabetes mellitus with diabetic chronic kidney disease; N18.30 Chronic kidney disease, stage 3 unspecified; Z79.4 Long term (current) use of insulin; D69.6 Thrombocytopenia, unspecified; J96.11 Chronic respiratory failure with hypoxia; C93.10 Chronic myelomonocytic leukemia not having achieved remission

== ENCOUNTER → 2025-08-01 15:33 | Outpatient (BNVA) | payer MEDICARE, BC, SELFPAY | PROVIDERS: PCP Internal Medicine; Visit Provider Physician Assistant | DX: Z09 Encounter for follow-up examination after completed treatment for conditions other than malignant neoplasm (principal); E11.22 Type 2 diabetes mellitus with diabetic chronic kidney disease; N18.30 Chronic kidney disease, stage 3 unspecified; D69.6 Thrombocytopenia, unspecified; J96.11 Chronic respiratory failure with hypoxia; C93.10 Chronic myelomonocytic leukemia not having achieved remission; Z79.4 Long term (current) use of insulin; Z99.81 Dependence on supplemental oxygen | CPT/HCPCS: 99212 ==

== ENCOUNTER 2025-08-22 13:51 | Outpatient (AMB) | payer MEDICARE, BC, SELFPAY ==
--- NOTE | 2025-08-22 13:54 | HO.NEPHOV ---
Vital Signs 08/22/25 14:04 Height 5 ft 7 in Weight 136 lb 6 oz BMI 21.4 BP 102/60 Blood Pressure Location Rt brachial Position Sitting Pulse 53 Pulse Source Pulse Oximeter Pulse Oximetry (%) 98 Oxygen Delivery Method Room Air Intake Visit Reasons: 6wk f/u w/labs-Conf w/son Gas Meter Installer Required: No Accompanied by: Son Allergies No Known Allergies Allergy (Verified 08/22/25 14:04) HPI Comments Details: 80 y/o male with recent dx CMML, HFrEF, CAD, NSTEMI, prostate CA s/p prostatectomy, asbestos exposure, COPD, prediabetes, HTN, CKD. He recently presented 07/19 with weakness, fevers, hypoxia without leukocytosis and was treated for pneumonia. He had TALA at that time.Patient states he is feeling how he usually feels, no new symptoms/concerns. States breathing feels comfortable (wearing supplemental O2). His legs were swollen but better now. Denies urinary symptoms. Denies other symptoms/concerns. 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 Father No problems noted. Social History Household Members: Family Housing: House Do you presently have visiting nurse or other home services: Yes (vna) Alcohol intake: current Alcohol intake frequency: holidays/special occasions only Patient Tobacco Use Status: Former Tobacco user e-Cigarette/Vaping Use: Former Use Second Hand Smoke Exposure: No Advance Directives Date on File: 09/13/24 service: No Current occupational status: retired and disabled Cognitive needs: Yes (cane) Hearing needs: No Vision needs: Yes (reading glasses) Review of Systems Const All systems reviewed & are unremarkable except as noted in HPI and below Physical Exam Const General: comfortable and no acute distress Orientation/consciousness: patient oriented x3 HEENT Head: Yes normocephalic Mouth: Normal oral and palatal mucosa present Eyes EOM: EOMs intact bilaterally Neck Neck: Yes supple Resp Auscultation: clear to auscultation bilaterally Cardio Jugular venous distension: no JVD Rate: regular rate GI Palpation (GI): Soft to palpation Auscultation: normal bowel sounds General: Yes no CVA tenderness Back/Spine/Pelvis Back: no CVA tenderness Skin General skin exam: no rashes or lesions noted Neuro General: patient oriented x3 and moves all extremities Extrem General: Yes no pedal edema Results Reviewed Nephrology Results: Hgb, (14.0-18.0) 12.2 g/dl L 08/20/25 WBC, (4.8-10.8) 12.3 X10*3/uL H 08/20/25 Plt Count, (160-400) 34 X10*3/uL L Δ 08/20/25 Sodium, (135-145) 143 mmol/L 08/20/25 Potassium, (3.3-5.1) 4.7 mmol/L 08/20/25 Chloride, (96-108) 112 mmol/L H 08/20/25 Carbon Dioxide, (22-29) 25 mmol/L 08/20/25 BUN, (9-16) 48 mg/dL H 08/20/25 Creatinine, (0.5-1.4) 1.66 mg/dL H 08/20/25 Calcium, (8.4-10.2) 9.3 mg/dL Δ 08/20/25 Urine Protein, (Neg-Trace) Trace mg/dL 07/19/25 Assessment & Plan Assessment & Plan (1) Acute kidney injury superimposed on CKD: Code(s): N17.9 - Acute kidney failure, unspecified; N18.9 - Chronic kidney disease, unspecified Category: Medical (2) Renal cyst: Code(s): N28.1 - Cyst of kidney, acquired Category: Medical Plan Ace has CKD stage 3 likely from vascular disease and age related loss of renal function. 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 His recent TALA was due to tubular injury which is improving. He is on allopurinol 100mg PO daily. He takes Jardiance 10mg daily. He can continue rest of current medications. He should maintain good hydration and minimize salt intake. F/U labs ordered. All his and sons questions were answered. Orders: Orders Uric Acid 3 Months N17.9 - Acute kidney failure, unspecified, N18.9 - Chronic kidney disease, unspecified, N28.1 - Cyst of kidney, acquired Blood Urea Nitrogen 3 Months N17.9 - Acute kidney failure, unspecified, N18.9 - Chronic kidney disease, unspecified, N28.1 - Cyst of kidney, acquired Calcium 3 Months N17.9 - Acute kidney failure, unspecified, N18.9 - Chronic kidney disease, unspecified, N28.1 - Cyst of kidney, acquired Electrolytes 3 Months N17.9 - Acute kidney failure, unspecified, N18.9 - Chronic kidney disease, unspecified, N28.1 - Cyst of kidney, acquired Creatinine 3 Months N17.9 - Acute kidney failure, unspecified, N18.9 - Chronic kidney disease, unspecified, N28.1 - Cyst of kidney, acquired Coding Level of Care Code Est Pt Level 4 (38367) Diagnoses Acute kidney injury superimposed on CKD N17.9; N18.9 Renal cyst N28.1
--- OUTSIDE RECORDS SUMMARY | 2025-08-22 14:00 | XMS_ITS | Clinical Summary ---
Author Organization [facility] Facility Address [address] [place] [address] Care Team Providers Care Tie Mill Operator Name Role Phone Mode Thompson MD Primary Care Provider [phone] Allergies No known active allergies Medications metFORMIN [...] age to complete this topic Insurance Medicare [facility] Medicare BCBS [place] Care Teams Tie Mill Operator Relationship Specialty Start Date End Date Mode Thompson MD [address] [place] [address] [id number] [place], [place] PCP - General 11/30/20
[2025-08-22 14:04] VITALS: BP 102/60; PULSE 53; O2SAT 98; BMI 21.4
== END 2025-08-22 14:15 | disposition home or self-care (01) ==
LOC: HO.HKA 13:51
PROVIDERS: PCP Internal Medicine; Visit Provider Internal Medicine Nephrology
DX: N17.9 Acute kidney failure, unspecified (principal); N18.9 Chronic kidney disease, unspecified; N28.1 Cyst of kidney, acquired
CPT/HCPCS: 99214

== ENCOUNTER → 2025-08-22 13:51 | Outpatient (BNVA) | payer MEDICARE, BC, SELFPAY | PROVIDERS: PCP Internal Medicine; Visit Provider Internal Medicine Nephrology | DX: E11.22 Type 2 diabetes mellitus with diabetic chronic kidney disease (principal); N18.30 Chronic kidney disease, stage 3 unspecified; N17.9 Acute kidney failure, unspecified; N28.1 Cyst of kidney, acquired | CPT/HCPCS: 99212 ==

== ENCOUNTER 2025-09-26 16:12 | Outpatient (AMB) | payer MEDICARE, BC, SELFPAY ==
[2025-09-26 16:16] VITALS: BP 120/74; PULSE 67; TEMP 36.6; O2SAT 98; BMI 22.9
--- NOTE | 2025-09-26 16:16 | A.OFFPC_ITS ---
Vital Signs 09/26/25 16:16 Height 5 ft 7 in Weight 66.224 kg BMI 22.9 BP 120/74 Blood Pressure Location Lt brachial Position Sitting Pulse 67 Pulse Source Pulse Oximeter Temp 97.8 F Temp Source Temporal Artery Scan Pulse Oximetry (%) 98 Oxygen Delivery Method Room Air Intake Visit Reasons: 3 Month F/U / Dr Sauer Child Abuse Worker Required: No Accompanied by: Son Allergies No Known Allergies Allergy (Verified 09/26/25 16:17) Tobacco use date assessed: 09/26/25 Fall risk assessment: No Falls in past year Dental Screening Dental Screen Date: 09/26/25 Did you have a dental visit in the last 12 months?: No Did you have a dental problem in the last 6 months where you did not have access to dental care?: No HPI HPI Comments History of Present Illness Details 80-year-old male with history of CML, ty pe 2 diabetes, atrial fibrillation, CAD, COPD, CKD with his son for management of chronic conditions. CML/thrombocytopenia- follows with Dr. Heck. Platelets fluctuation, but wbc stable Type 2 diabetes-last hemoglobin A1c 5.3%. Using 7 units basaglar and jardiance. Up-to-date on eye exams. Paroxysmal atrial fibrillation-rate controlled. On Eliquis for anticoagulation and metoprolol for rate control. Denies any bleeding or easy bruisability. Coronary artery disease-H/O NSTEMI s/p cardiac catheterization with DCS to the proximal left circumflex and RCA. On Eliquis and Plavix. Following with cardiology. No dyspnea on exertion, orthopnea, palpitations, shortness of breath, chest pain. Continues with cardiac rehab COPD- exacerbation as above Compliant with Arnuity Ellipta. Rarely requires use of albuterol CKD stage 3- cc/gfr and creat stable. Following with Nephrology Concerns: None ROS: See HPI EXAM: Constitutional - Awake and Alert, No apparent distress Eyes - PERRL Cardiovascular - S1S2, RRR, No edema Respiratory - Normal lung expansion, Normal respiratory effort, No respiratory distress, CTA bilaterally . 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 Father No problems noted. Social History Household Members: Family Housing: House Do you presently have visiting nurse or other home services: Yes (vna) Alcohol intake: current Alcohol intake frequency: holidays/special occasions only Patient Tobacco Use Status: Former Tobacco user e-Cigarette/Vaping Use: Former Use Second Hand Smoke Exposure: No Advance Directives Date on File: 09/13/24 service: No Current occupational status: retired and disabled Cognitive needs: Yes (cane) Hearing needs: No Vision needs: Yes (reading glasses) Questionnaire PHQ-9 Over the last 2 weeks, how often have you been bothered by any of the following problems? 1. Little interest or pleasure in doing things: not at all 2. Feeling down, depressed, or hopeless: not at all 3. Trouble falling or staying asleep, or sleeping too much: not at all 4. Feeling tired or having little energy: not at all 5. Poor appetite or overeating: not at all 6. Feeling bad about yourself - or that you are a failure or have let yourself or your family down: not at all 7. Trouble concentrating on things, such as reading the newspaper or watching television: not at all 8. Moving or speaking so slowly that other people could have noticed. Or the opposite - being so fidgety or restless that you have been moving around a lot more than usual: not at all Source: Developed by Drs. Ezio Dueñas, Sussy Mcpherson, Brendan Mckeon and colleagues, with an educational aicha from [employer]. Thrive Questionnaire Date Thrive assessed: 09/26/25 I am a: Patient Within the past 12 months, did the food you bought not last and you didn't have the money to get more?: Never true Within the past 12 months, did you worry whether your food would run out before you got money to buy more?: Never true Do you have trouble paying for medicines?: No Do you have trouble getting transportation to medical appointments?: No Do you have trouble paying your heating and electricity bill?: No Do you have trouble taking care of your child, family member or friend?: No Do you have trouble with day-to-day activities such as bathing, preparing meals, shopping, managing finances, etc.?: No Are you currently unemployed and looking for a job?: No Are you interested in more education?: No THRIVE Score: 0 AUDIT C Alcohol Use Questionnaire (AUDIT-C) 1. How often do you have a drink containing alcohol?: Never 3. How often do you have six or more drinks on one occasion?: Never Total Score: 0 CHACE-7 AMB Questionnaire CHACE-7 Date CHACE - 7 assessed: 09/26/25 Feeling nervous, anxious, or on edge: 0 = Not at all Not being able to stop or control worryin = Not at all Worrying too much about different things: 0 = Not at all Trouble relaxin = Not at all Being so restless that it is hard to sit still: 0 = Not at all Becoming easily annoyed or irritable: 0 = Not at all Feeling afraid as if something awful might happen: 0 = Not at all Total CHACE-7 score (0-4 normal; 5-9 mild; 10-14 moderate; 15-21 severe): 0 Source: Developed by Drs. Ezio Dueñas, Sussy Mcpherson, Brendan Mckeon and colleagues, with an educational aicha from [employer]. Physical exam (Primary Care) Vital Signs: Last Vital Signs Temp 97.8 F 09/26/25 16:16 Pulse 67 09/26/25 16:16 BP 120/74 09/26/25 16:16 Pulse Ox 98 09/26/25 16:16 Oxygen Delivery Method Room Air 09/26/25 16:16 BMI result Body Mass Index 22.9 Tobacco/Smoking Status: Tobacco use Status Tobacco use date assessed 09/26/25 09/26/25 16:18 Patient Tobacco Use Status Former Tobacco user 09/26/25 16:18 e-Cigarette/Vaping Use Former Use 09/26/25 16:18 Thrive Assessment: Date of Thrive Assessment Date Thrive assessed 09/26/25 09/26/25 16:18 Coding Level of Care Code Est Pt Level 4 (79564) Complex EM visit Add On G2211 Diagnoses Type 2 diabetes mellitus with stage 3 chronic kidney disease, with long-term current use of insulin, unspecified whether stage 3a or 3b CKD E11.22; N18.30; Z79.4 Diabetes mellitus type: type 2 Diabetes mellitus oysterman insulin use: with oysterman use Diabetes mellitus complication status: with kidney complications Diabetes mellitus complication detail: with chronic kidney disease Chronic kidney disease stage: stage 3 (moderate) Chronic kidney disease stage 3 subtype: unspecified whether 3a or 3b Thrombocytopenia D69.6 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 C93.10 Leukemia Active/Remission status: without remission Atrial fibrillation with RVR I48.91 Assessment & Plan Assessment & Plan (1) Diabetes: Code(s): E11.9 - Type 2 diabetes mellitus without complications Category: Medical Qualifiers: Diabetes mellitus type: type 2 Diabetes mellitus oysterman insulin use: with jail use Diabetes mellitus complication status: with kidney complications Diabetes mellitus complication detail: with chronic kidney disease Chronic kidney disease stage: stage 3 (moderate) Chronic kidney disease stage 3 subtype: unspecified whether 3a or 3b Qualified Code(s): E11.22 - Type 2 diabetes mellitus with diabetic chronic kidney disease; N18.30 - Chronic kidney disease, stage 3 unspecified; Z79.4 - predatory animal exterminator (current) use of insulin Plan: Controlled. Discontinue Basaglar. Continue Jardiance. Diabetic diet. Continue with annual eye exams (2) Thrombocytopenia: Code(s): D69.6 - Thrombocytopenia, unspecified Category: Medical Plan: Chronic and fluctuating. Continue following with Hematology. Stable platelet counts. 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 Continue with therapies. Present weekly for blood work. (4) Atrial fibrillation with RVR: Code(s): I48.91 - Unspecified atrial fibrillation Category: Medical Plan: Rate controlled. Continue renally adjusted Eliquis for anticoagulation, metoprolol for rate control. 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, 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, E11.22 - Type 2 diabetes mellitus with diabetic chronic kidney disease, I48.91 - Unspecified atrial fibrillation, N18.30 - Chronic kidney disease, stage 3 unspecified, R79.89 - Other specified abnormal findings of blood chemistry, Z79.4 - predatory animal exterminator (current) use of insulin Liver Panel 4 Months C93.10 - 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, 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, E11.22 - Type 2 diabetes mellitus with diabetic chronic kidney disease, I48.91 - Unspecified atrial fibrillation, N18.30 - Chronic kidney disease, stage 3 unspecified, R79.89 - Other specified abnormal findings of blood chemistry, Z79.4 - predatory animal exterminator (current) use of insulin TSH reflex Free T4 4 Months C93.10 - 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, 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, E11.22 - Type 2 diabetes mellitus with diabetic chronic kidney disease, I48.91 - Unspecified atrial fibrillation, N18.30 - Chronic kidney disease, stage 3 unspecified, R79.89 - Other specified abnormal findings of blood chemistry, Z79.4 - detention (current) use of insulin Complete Blood Count Auto Diff 4 Months C93.10 - 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, 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, E11.22 - Type 2 diabetes mellitus with diabetic chronic kidney disease, I48.91 - Unspecified atrial fibrillation, N18.30 - Chronic kidney disease, stage 3 unspecified, R79.89 - Other specified abnormal findings of blood chemistry, Z79.4 - detention (current) use of insulin Medications: New apixaban (Eliquis) 2.5 mg PO BID 180 tabs 1RF Refilled Accu-Chek Guide Glucose Meter (blood-glucose meter) 3 times a day or As Directed 1 ea 0RF NS E11.9 - Type 2 diabetes mellitus without complications Accu-Chek Guide test strips (blood sugar diagnostic) 3 times per day or as directed 300 ea 3RF NS E11.9 - Type 2 diabetes mellitus without complications Accu-Chek Softclix Lancets (lancets) 3 times a day 300 ea 3RF NS E11.9 - Type 2 diabetes mellitus without complications furosemide (Lasix) 20 mg PO Q OTHER DAY 30 tabs 0RF metoprolol tartrate 25 mg See Protocol PO BID 180 tabs 3RF pen needle, diabetic once daily 100 ea 3RF E11.9 - Type 2 diabetes mellitus without complications sacubitril-valsartan 49-51 mg (Entresto) 1 tab See Protocol PO BID 180 tabs 1RF allopurinol 100 mg PO DAILY 90 tabs 1RF atorvastatin 40 mg PO BEDTIME 90 tabs 3RF empagliflozin (Jardiance) 10 mg PO DAILY 90 tabs 1RF
--- OUTSIDE RECORDS SUMMARY | 2025-09-26 16:48 | XMS_ITS | Clinical Summary ---
Author Organization [facility] Facility Address [address] [place] [id number] Care Team Providers Care Hose Operator Name Role Phone Mode Thompson MD Primary Care Provider [phone] Allergies No known active allergies Medications metFORMIN [...] age to complete this topic Insurance Medicare [facility] Medicare BCBS [place] Care Teams Hose Operator Relationship Specialty Start Date End Date Mode Thompson MD [address] [place] [address] [id number] [place], [place] PCP - General 11/30/20
== END 2025-09-26 16:48 | disposition home or self-care (01) ==
LOC: HO.HMCHD 16:13
PROVIDERS: PCP Internal Medicine; Visit Provider Physician Assistant
DX: E11.22 Type 2 diabetes mellitus with diabetic chronic kidney disease (principal); N18.30 Chronic kidney disease, stage 3 unspecified; Z79.4 Long term (current) use of insulin; D69.6 Thrombocytopenia, unspecified; C93.10 Chronic myelomonocytic leukemia not having achieved remission; I48.91 Unspecified atrial fibrillation

== ENCOUNTER → 2025-09-26 16:12 | Outpatient (BNVA) | payer MEDICARE, BC, SELFPAY | PROVIDERS: PCP Internal Medicine; Visit Provider Physician Assistant | DX: E11.22 Type 2 diabetes mellitus with diabetic chronic kidney disease (principal); N18.30 Chronic kidney disease, stage 3 unspecified; D69.6 Thrombocytopenia, unspecified; C93.10 Chronic myelomonocytic leukemia not having achieved remission; I48.0 Paroxysmal atrial fibrillation; I25.10 Atherosclerotic heart disease of native coronary artery without angina pectoris; J44.9 Chronic obstructive pulmonary disease, unspecified; I25.2 Old myocardial infarction; Z79.01 Long term (current) use of anticoagulants; Z79.4 Long term (current) use of insulin; Z79.899 Other long term (current) drug therapy; Z13.30 Encounter for screening examination for mental health and behavioral disorders, unspecified; Z13.39 Encounter for screening examination for other mental health and behavioral disorders | CPT/HCPCS: 96127; 99212 ==

== ENCOUNTER 2025-10-02 14:19 | Outpatient (AMB) | payer MEDICARE, BC, SELFPAY ==
--- NOTE | 2025-10-02 14:05 | MHC.PC.OV ---
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 Per patient's son, patient developed symptoms and serially as there is a evening where he was found in bed old up and found to have a fever of 102. He subsequently continued to spike fevers overnight before resolving on Monday. He reports of fevers continued and it was accompanied by a cough that occurs primarily at night. They report the fevers continued overnight initially thought that was secondary to multiple blankets however it went down to 101 and 99. The patient's son offered him some Tylenol however he did not use any. It was then undergoing regular testing for his CML chemotherapy yesterday where he had blood work and was called and he was exposed and therefore he came back again spiked fevers. He also was recently admitted to the hospital in May and was treated with pneumonia. He last received chemotherapy 3 weeks prior and is scheduled to get chemotherapy on Monday. He denies any nausea, vomiting, chest pain or shortness of breath. Does endorses recurrent cough with fevers. Endorses continued urination when using Lasix. 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 Father No problems noted. Social History Household Members: Family Housing: House Do you presently have visiting nurse or other home services: Yes (vna) Alcohol intake: current Alcohol intake frequency: holidays/special occasions only Patient Tobacco Use Status: Former Tobacco user e-Cigarette/Vaping Use: Former Use Second Hand Smoke Exposure: No Advance Directives Date on File: 09/13/24 service: No Current occupational status: retired and disabled Cognitive needs: Yes (cane) Hearing needs: No Vision needs: Yes (reading glasses) Questionnaire Thrive Questionnaire Date Thrive assessed: 09/26/25 CHACE-7 AMB Questionnaire CHACE-7 Date CHACE - 7 assessed: 09/26/25 Source: Developed by Drs. Ezio Dueñas, Sussy Mcpherson, Brendan Mckeon and colleagues, with an educational aicha from [employer]. Review of Systems Narrative - Constitutional: Reports cough, fever, chills - Cardiovascular: Denies chest pain. - Gastrointestinal: Denies nausea or vomiting; reports normal eating, drinking, and bowel function. All systems reviewed & are unremarkable except as reviewed in HPI and above Physical exam (Primary Care) Vital Signs: Last Vital Signs Temp 98.7 F 10/02/25 14:29 Pulse 68 10/02/25 14:29 Resp 18 10/02/25 14:29 BP 114/58 L 10/02/25 14:29 Pulse Ox 98 10/02/25 14:29 Oxygen Delivery Method Room Air 10/02/25 14:29 BMI result Body Mass Index 22.4 Tobacco/Smoking Status: Tobacco use Status Tobacco use date assessed 09/26/25 10/02/25 14:06 Patient Tobacco Use Status Former Tobacco user 10/02/25 14:06 e-Cigarette/Vaping Use Former Use 10/02/25 14:06 Thrive Assessment: Date of Thrive Assessment Date Thrive assessed 09/26/25 10/02/25 14:06 Narrative General: Alert and oriented, Well nourished, No acute distress. Eye: Pupils are equal, round and reactive to light, Intact accommodation, Extraocular movements are intact, Normal conjunctiva, Vision unchanged. HENT: Normocephalic, Atraumatic, Tympanic membranes are clear, Normal hearing, Oral mucosa is moist, No pharyngeal erythema, Ear canals patent. Respiratory: Lungs CTA bilaterally, No wheeze, Respirations are non-labored, Shortness of breath slightly improved. Cardiovascular: Regular rate, Regular rhythm, S1 auscultated, S2 auscultated, No murmur, Good pulses equal in all extremities, Normal peripheral perfusion, No edema. Gastrointestinal: Soft, Non-tender, Non-distended, Normal bowel sounds, No organomegaly, No pain on palpation. Musculoskeletal: Normal range of motion, Normal strength, No tenderness, No swelling, No deformity, Normal gait. Integumentary: Warm, Dry, [place], Intact. Neurologic: Alert, Oriented, Normal sensory, Normal motor function, No focal defects, Cranial Nerves II-XII are grossly intact, Normal deep tendon reflexes. Psychiatric: Cooperative, Appropriate mood & affect, Normal judgment. 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 C93.10 Leukemia Active/Remission status: without remission Type 2 diabetes mellitus with stage 3 chronic kidney disease, with long-term current use of insulin, unspecified whether stage 3a or 3b CKD E11.22; N18.30; Z79.4 Diabetes mellitus type: type 2 Diabetes mellitus long-term insulin use: with long-term use Diabetes mellitus complication status: with kidney complications Diabetes mellitus complication detail: with chronic kidney disease Chronic kidney disease stage: stage 3 (moderate) Chronic kidney disease stage 3 subtype: unspecified whether 3a or 3b Atrial fibrillation with RVR I48.91 Coronary artery disease, unspecified vessel or lesion type, unspecified whether angina present, unspecified whether [place] or transplanted heart I25.10 Coronary Disease-Associated Artery/Lesion type: unspecified vessel or lesion type [place] vs. transplanted heart: unspecified whether [place] or transplanted heart Associated angina: unspecified whether angina present Primary hypertension I10 Hypertension type: primary hypertension Assessment & Plan Assessment & Plan (1) Fever: Comment: Patient presented complaints of 2 days of fevers in addition to associated cough. Fever T-max measured at 1 2 per region son. Does also have a prior history also of chronic cough secondary to asbestosis but also is currently receiving chemotherapy for CMML. Most recent blood work showed a low white count at 4.7 however normal neutrophils. Given his recent chemotherapy, became high risk with symptoms of cough and fever differentials include, COVID, neutropenic fever (less likely given normal neutrophil count), UTI and bacteremia. Therefore we will obtain a chest x-ray, respiratory viral panel, sputum cultures, UA and blood cultures. If any other testing is positive we will send treatment accordingly if positive for COVID we will 7 Paxlovid given he is high risk in if positive for flu we will send treatment with topical. Code(s): R50.9 - Fever, unspecified Category: Medical Qualifiers: Fever type: unspecified Qualified Code(s): R50.9 - Fever, unspecified (2) CMML (chronic myelomonocytic leukemia): Comment: Received last chemo 3 weeks prior with scheduled chemo session on upcoming Monday. 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 Continues on Jardiance at this time Code(s): E11.9 - Type 2 diabetes mellitus without complications Category: Medical Qualifiers: Diabetes mellitus type: type 2 Diabetes mellitus long wall shear operator insulin use: with long wall shear operator use Diabetes mellitus complication status: with kidney complications Diabetes mellitus complication detail: with chronic kidney disease Chronic kidney disease stage: stage 3 (moderate) Chronic kidney disease stage 3 subtype: unspecified whether 3a or 3b Qualified Code(s): E11.22 - Type 2 diabetes mellitus with diabetic chronic kidney disease; N18.30 - Chronic kidney disease, stage 3 unspecified; Z79.4 - termite exterminator (current) use of insulin (4) Atrial fibrillation with RVR: Comment: Currently on metoprolol tartrate 25 mg b.i.d. and Eliquis was held during his consultation with his line fisher. At this time I have a message with the patient's line fisher to inquire if patient can be restarted on Eliquis we will await her response before initiating medications. Code(s): I48.91 - Unspecified atrial fibrillation Category: Medical (5) CAD (coronary artery disease): Comment: Status post study x2 and completed Plavix Code(s): I25.10 - Atherosclerotic heart disease of [place] coronary artery without angina pectoris Category: Medical Qualifiers: Coronary Disease-Associated Artery/Lesion type: unspecified vessel or lesion type [place] vs. transplanted heart: unspecified whether [place] or transplanted heart Associated angina: unspecified whether angina present Qualified Code(s): I25.10 - Atherosclerotic heart disease of [place] coronary artery without angina pectoris (6) Hypertension: Comment: Pressure stable in clinic at 115/58. Currently being managed on Entresto with no acute complaints at this time. Code(s): I10 - Essential (primary) hypertension Category: Medical Qualifiers: Hypertension type: primary hypertension Qualified Code(s): I10 - Essential (primary) hypertension Plan Obtain CXR, respiratory viral panel, blood cultures, urinalysis and culture and sputum cultures We will confirm with Hematology patient can restart on Eliquis Orders: Orders XR chest 2V Today R50.9 - Fever, unspecified Blood Culture X1 Today R50.9 - Fever, unspecified Sputum Cult + Gram stain Today R50.9 - Fever, unspecified Resp Pathogen Panel - [facility] Today R50.9 - Fever, unspecified UA ClnCatch+Micro w/rflx Cult Today R50.9 - Fever, unspecified
[2025-10-02 14:29] VITALS: BP 114/58; PULSE 68; RESP 18; TEMP 37.1; O2SAT 98; BMI 22.4
--- OUTSIDE RECORDS SUMMARY | 2025-10-02 17:42 | XMS_ITS | Clinical Summary ---
Author Organization [facility] Facility Address [address] [place] [id number] Care Team Providers Care Project Coordinator Rn Name Role Phone Mode Thompson MD Primary Care Provider [phone] Allergies No known active allergies Medications metFORMIN [...] this topic Insurance Medicare [facility] Medicare BCBS [place] Care Teams Project Coordinator Rn Relationship Specialty Start Date End Date Mode Thompson MD [address] [place] [address] [id number] [place], [place] PCP - General 11/30/20
--- OUTSIDE RECORDS SUMMARY | 2025-10-02 17:42 | XMS_ITS | Patient Health Record ---
Author Organization [facility] Address [address] [place] [address] Care Team Providers Care Cost Control Supervisor Name Role Phone Donna (RETIRED) Mode VAZQUEZ Primary Care Provide r Unavailable Ezio Mendez Unavailable [phone] Reason For Referral No Information Medications Medication SIG (Take, Route, Frequency, Duration) Notes Start Date End Date Status metFORMIN HCl 500 MG 1 tablet with meals Orally Twice a day Active Aspirin Adult Low Dose 81 MG 1 tablet Orally Once a day A ctive Problems Problem Type SNOMED Code ICD Code Onset Dates Problem Status W/U Status Risk Notes Problem Screening for malignant neoplasm of colon (291066101) Encounter for screening for malignant neoplasm of colon (Z12.11) Active confirmed Problem Screening for malignant neoplasm of rectum (605960808) Encounter for screening for malignant neoplasm of rectum (Z12.12) Active confirmed Problem Elevated liver enzymes level (824376043) Elevated liver enzymes (R74.8) Active confirmed Problem Iron excess (98536958) Iron excess (E83.19) Active confirmed Plan Of Treatment Pending Test Test Name Order Date [id number] (A1A) 08/07/2016 MITOCHONDRIAL AB 08/07/2016 SMOOTH MUSCLE ANTIBODIES 08/07/2016 HEMOCHROMATOSIS (C282Y) 08/07/2016 FLUOR. ANTINUCLEAR AB SCREEN (KERWIN) 07/21 Future Test Test Name Order Date COLONOSCOPY 07/29/2016 Insurance Providers Payer Name Payer Address Payer Phone Subscriber Number Group Number Insured Name Patient Relationship to Insured Coverage Start Date Coverage End Date MEDICARE OF [address] [place] [address] [id number] DWYANE GARNER Self - patient is the insured [facility] PROF[employer]AL CLAIMS [address] [place] [address] [phone] [id number] DWAYNE GARNER Self - patient is the insured Medical (General) History Medical History History ICD Code Prostate cancer in 2008--surgery as stephen luna Denies [place],CVA,Lung disease,renal disease NIDDM Negative [place]osc[place] [address] Elaine vargas Surgical History Surgery Date(Month/Year) Radical prosatatectomy in 2006 Tonsillectomy
== END 2025-10-02 15:11 | disposition home or self-care (01) ==
LOC: HO.HMCHD 14:20
PROVIDERS: PCP Internal Medicine; Visit Provider Student in an Organized Health Care Education/Training Program
DX: R50.9 Fever, unspecified (principal); C93.10 Chronic myelomonocytic leukemia not having achieved remission; E11.22 Type 2 diabetes mellitus with diabetic chronic kidney disease; N18.30 Chronic kidney disease, stage 3 unspecified; Z79.4 Long term (current) use of insulin; I48.91 Unspecified atrial fibrillation; I25.10 Atherosclerotic heart disease of native coronary artery without angina pectoris; I10 Essential (primary) hypertension

== ENCOUNTER 2025-10-02 14:19 | Outpatient (REF) | payer MEDICARE, BC, SELFPAY ==
--- NOTE | ~2025-10-02 | XR_ITS ---
EXAMINATION: XR CHEST CLINICAL INFORMATION: R50.9 - Fever, unspecified COMPARISON: Chest x-ray 07/19/[address] chest 07/19/2025.. TECHNIQUE: 2 views of the chest were obtained. FINDINGS: Lungs are expanded with a soft tissue density in the right midlung question nodule versus mass. Rest of the lungs are clear There is no pleural effusion or thickening. The heart size and pulmonary vascularity is normal. No gross bony abnormality seen. XR/XR chest 2V IMPRESSION: Soft tissue mass or density right midlung. This could be a primary lung nodule or a focal pleural nodule as was noted on the previous CT chest exam 07/19/2025. Correlation with a new CT can be performed if clinically required. Rest of the lungs are clear. Electronically signed by: Darrel Rosario MD 10/02/2025 03:56 PM EST
[2025-10-02 15:44] LABS: Appearance Urine Clear; Glucose Urine UA >=1000 mg/dL (Negative); PH 5.5 (5.0-9.0); Specific Gravity - Urine 1.025 (1.005-1.025); UMIC TRIGGER UACC YES
== END 2025-10-02 14:20 | disposition home or self-care (01) ==
LOC: HO.LAB 14:19
PROVIDERS: PCP Internal Medicine; Visit Provider Student in an Organized Health Care Education/Training Program
DX: C93.10 Chronic myelomonocytic leukemia not having achieved remission (principal); R50.9 Fever, unspecified; E11.22 Type 2 diabetes mellitus with diabetic chronic kidney disease; I12.9 Hypertensive chronic kidney disease with stage 1 through stage 4 chronic kidney disease, or unspecified chronic kidney disease; N18.30 Chronic kidney disease, stage 3 unspecified; I48.91 Unspecified atrial fibrillation; I25.10 Atherosclerotic heart disease of native coronary artery without angina pectoris; Z79.4 Long term (current) use of insulin
CPT/HCPCS: 71046; 81001; 87040; 99212

== ENCOUNTER → 2025-10-02 15:27 | Outpatient (BNV) | payer MEDICARE, BC, SELFPAY | PROVIDERS: PCP Internal Medicine; Visit Provider Radiology Diagnostic Radiology | DX: R50.9 Fever, unspecified (principal) | CPT/HCPCS: 71046 ==

== ENCOUNTER 2025-10-03 12:25 | Outpatient (REF) | payer MEDICARE, BC, SELFPAY ==
[2025-10-03 16:18] LABS: Resp Syncy Virus RNA Qual PCR NEGATIVE (Negative); SARS COV2 PCR INHOUSE NEGATIVE (Negative)
== END 2025-10-03 12:26 | disposition home or self-care (01) ==
LOC: HO.LAB 12:25
PROVIDERS: PCP Internal Medicine; Visit Provider Student in an Organized Health Care Education/Training Program
DX: R50.9 Fever, unspecified (principal)
CPT/HCPCS: 87637

== ENCOUNTER 2025-10-29 16:00 | Outpatient (AMB) | payer MEDICARE, BC, SELFPAY ==
--- NOTE | 2025-10-29 16:04 | A.OFFPC_ITS ---
Vital Signs 10/29/25 16:11 Height 5 ft 7 in Weight 64.183 kg BMI 22.2 BP 118/58 L Pulse 77 Pulse Source Pulse Oximeter Temp 97.7 F Temp Source Temporal Artery Scan Pulse Oximetry (%) 95 Oxygen Delivery Method Room Air Intake Visit Reasons: fatigue Tobacco Packing Machine Operator Required: No Accompanied by: Self / Same As Patient Allergies No Known Allergies Allergy (Verified 10/29/25 16:04) Medication List - Last Reconciled 10/29/25 by RUBÉN Alan Accu-Chek Guide Glucose Meter (blood-glucose meter) 3 times a day or As Directed NS Accu-Chek Guide test strips (blood sugar diagnostic) 3 times per day or as directed NS Accu-Chek Softclix Lancets (lancets) 3 times a day NS allopurinol 100 mg PO DAILY atorvastatin 40 mg PO BEDTIME empagliflozin (Jardiance) 10 mg PO DAILY furosemide (Lasix) 20 mg PO .q two days metoprolol tartrate 25 mg See Protocol PO BID multivitamin 1 tab PO DAILY pen needle, diabetic once daily sacubitril-valsartan 49-51 mg (Entresto) 1 tab See Protocol PO BID tramadol 50 mg PO BID PRN vitamin B complex ER (Complex B-100 tablet,extended release) 1 tab PO DAILY walker (Ultra-Light Rollator misc) As directed Tobacco use date assessed: 09/26/25 Dental Screening Dental Screen Date: 09/26/25 HPI HPI Comments History of Present Illness Details 80-year-old male with history of CML, ty pe 2 diabetes, atrial fibrillation, CAD, COPD, CKD, asbestosis with his son for management of chronic conditions. CML/thrombocytopenia- follows with Dr. Heck. Platelets fluctuation, but wbc stable Type 2 diabetes-last hemoglobin A1c 5.3%. Using 7 units basaglar and jardiance. Up-to-date on eye exams. Paroxysmal atrial fibrillation-rate controlled. On Eliquis for anticoagulation and metoprolol for rate control. Denies any bleeding or easy bruisability. Coronary artery disease-H/O NSTEMI s/p cardiac catheterization with DCS to the proximal left circumflex and RCA. On Eliquis and Plavix. Following with cardiology. No dyspnea on exertion, orthopnea, palpitations, shortness of breath, chest pain. Continues with cardiac rehab COPD- exacerbation as above Compliant with Arnuity Ellipta. Rarely requires use of albuterol CKD stage 3- cc/gfr and creat stable. Following with Nephrology Concerns: Experiencing fatigue and dyspnea on exertion ongoing for 1 week. He has been very tired, sleeping often throughout the day. There has been some wheezing. He also noticed that his voice has been weaker. No fevers, chills, dysphagia, globus sensation, abdominal pain, nausea, vomiting, and diarrhea. He denies any lightheadedness, palpitations or chest pain. No shortness of breath at rest. He does have chronic cough related to asbestosis. He has not been using his maintenance inhaler. He is not currently undergoing chemotherapy, we will be resuming next Monday. Labs performed this morning did show a mild leukocytosis of 11.4, above baseline of 4-5. NRBC significantly elevated at 1.080. 12% bands. Lumbar radiculopathy/peripheral neuropathy-using an [id number] supplement called Migrasil which has been helpful but requesting referral to pain management. MRI of the lumbar spine from 2020 dose show severe degenerative disc disease at L3-L4 with mild retro subluxation of hypertrophic facet arthropathy contributing to [id number] central canal stenosis. Also right lateral recess disc extrusion with compression of the right L4 nerve root among other findings. ? Eliquis. Has been discontinued due to thrombocytopenia. Platelet levels have been up and down, most recently 62. Has been discontinued by oncologist. Ear concerned as he does have a history of atrial fibrillation as well as recent placement of RENE in 09/2024. He is not using any antiplatelet drugs. ROS: See HPI EXAM: Constitutional - Awake and Alert, No apparent distress Eyes - PERRL Cardiovascular - S1S2, RRR, No edema Respiratory - Normal lung expansion, Normal respiratory effort, No respiratory distress. 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 Father No problems noted. Social History Household Members: Family Housing: House Do you presently have visiting nurse or other home services: Yes (vna) Alcohol intake: current Alcohol intake frequency: holidays/special occasions only Patient Tobacco Use Status: Former Tobacco user e-Cigarette/Vaping Use: Former Use Second Hand Smoke Exposure: No Advance Directives Date on File: 09/13/24 service: No Current occupational status: retired and disabled Cognitive needs: Yes (cane) Hearing needs: No Vision needs: Yes (reading glasses) Questionnaire Thrive Questionnaire Date Thrive assessed: 09/26/25 CHACE-7 AMB Questionnaire CHACE-7 Date CHACE - 7 assessed: 09/26/25 Source: Developed by Drs. Ezio Dueñas, Sussy Mcpherson, Brendan Mckeon and colleagues, with an educational aicha from [employer]. Physical exam (Primary Care) Vital Signs: Last Vital Signs Temp 97.7 F 10/29/25 16:11 Pulse 77 10/29/25 16:11 BP 118/58 L 10/29/25 16:11 Pulse Ox 95 10/29/25 16:11 Oxygen Delivery Method Room Air 10/29/25 16:11 BMI result Body Mass Index 22.2 Tobacco/Smoking Status: Tobacco use Status Tobacco use date assessed 09/26/25 10/29/25 16:05 Patient Tobacco Use Status Former Tobacco user 10/29/25 16:05 e-Cigarette/Vaping Use Former Use 10/29/25 16:05 Thrive Assessment: Date of Thrive Assessment Date Thrive assessed 09/26/25 10/29/25 16:05 Coding Level of Care Code Est Pt Level 5 (48700) Add On Problem Visit Only Diagnoses 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 Continues with thrombocytopenia with increase in WBC to 11.9%. 12% bands. Elevated NRBC (2) Atrial fibrillation with RVR: Comment: Currently on metoprolol tartrate 25 mg b.i.d. and Eliquis was held during his consultation with his [facility] [place]. On hold due to thrombocytopenia Code(s): I48.91 - Unspecified atrial fibrillation Category: Medical Plan: Await results of most recent platelet count. Pending results, we will discuss with oncologist whether Eliquis should be resumed (3) Hypertension: Comment: Pressure stable in clinic at 115/58. Currently being managed on Entresto with no acute complaints at this time. Code(s): I10 - Essential (primary) hypertension Category: Medical Qualifiers: Hypertension type: primary hypertension Qualified Code(s): I10 - Essential (primary) hypertension Plan: Controlled. Continue current therapies (4) Dyspnea: Code(s): R06.00 - Dyspnea, unspecified Category: Medical Plan: Ambulatory oximetry 93-95% the patient is symptomatic with dyspnea. There are crackles throughout the right lung. He does have chronic cough. Given associated fatigue, we will check chest x-ray. Continue use of supplemental O2 as needed. Is significant fatigue may also be related to his CMML given worsening leukocytosis, bandemia, NRBC (5) Lumbar radiculopathy: Code(s): M54.16 - Radiculopathy, lumbar region Category: Medical Plan: Referral placed to pain management Tramadol prescribed for more severe pain as needed. Mass effect reviewed Orders: Orders XR chest 2V Today R05.9 - Cough, unspecified, R53.83 - Other fatigue Referrals Pain Management Referral G62.9 - Polyneuropathy, unspecified, M54.16 - Radiculopathy, lumbar region Medications: New tramadol 50 mg PO BID PRN 60 tabs 1RF pain
[2025-10-29 16:11] VITALS: BP 118/58; PULSE 77; TEMP 36.5; O2SAT 95; BMI 22.2
--- OUTSIDE RECORDS SUMMARY | 2025-10-30 00:43 | XMS_ITS | Clinical Summary ---
Author Organization [facility] Facility Address [address] [place] [address] Care Team Providers Care Child Guidance Counselor Name Role Phone Mode Thompson MD Primary Care Provider [phone] Allergies No known active allergies Medications metFORMIN [...] [facility] Medicare BCBS [place] Care Teams Child Guidance Counselor Relationship Specialty Start Date End Date Mode Thompson MD [address] [place] [address] [address] [place], [place] PCP - General 11/30/20
--- OUTSIDE RECORDS SUMMARY | 2025-10-30 00:43 | XMS_ITS | Patient Health Record ---
Author Organization [facility] Address [address] [place] [address] Care Team Providers Care Court Orderly Name Role Phone Donna (RETIRED) Mode VAZQUEZ Primary Care Provide r Unavailable Ezio Mendez Unavailable [phone] Reason For Referral No Information Medications Medication SIG (Take, Route, Frequency, Duration) Notes Start Date End Date Status metFORMIN HCl 500 MG Tablet 1 tablet with meals Orally Twice a day Active Aspirin Adult Low Dose 81 MG Tablet Delayed Release 1 tablet Orally Once a day Active Social History Social History Additional Details Category Social Info Options Details Miscellaneous: Marital status: Occupation: retired Section Notes: Over 25 years smoke-free; no sig alcohol Problems Problem Type SNOMED Code ICD Code Onset Dates Problem Status W/U Status Risk Notes Problem Screening for malignant neoplasm of colon (745393508) Encounter for screening for malignant neoplasm of colon (Z12.11) Active confirmed Problem Screening for malignant neoplasm of rectum (706880594) Encounter for screening for malignant neoplasm of rectum (Z12.12) Active confirmed Problem Elevated liver enzymes level (245884055) Elevated liver enzymes (R74.8) Active confirmed Problem Iron excess (20816390) 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 ANTINUCLEAR AB SCREEN (KERWIN) 07/21 Future Test Test Name Order Date COLONOSCOPY 07/29/2016 Insurance Providers Payer Name Payer Address Payer Phone Subscriber Number Group Number Insured Name Patient Relationship to Insured Coverage Start Date Coverage End Date MEDICARE OF [place] [address] [place] [address] [id number] PASCUAL DWAYNE Self - patient is the insured [employer] PROFESSIONAL CLAIMS [address] [place] [address] [phone] [id number] 500 DWAYNE GARNER Self - patient is the insured Medical (General) History Medical History History ICD Code Prostate cancer in 2008--surgery as stephen carrasco Denies [place],CVA,Lung disease,renal disease NIDDM [place]osc[place] [address] Elaine vargas Surgical History Surgery Date(Month/Year) Radical prosatatectomy in 2006 Tonsillectomy
== END 2025-10-29 16:48 | disposition home or self-care (01) ==
LOC: HO.HMCHD 16:01
PROVIDERS: PCP Internal Medicine; Visit Provider Physician Assistant
DX: C93.10 Chronic myelomonocytic leukemia not having achieved remission (principal); I48.91 Unspecified atrial fibrillation; I10 Essential (primary) hypertension; R06.00 Dyspnea, unspecified; M54.16 Radiculopathy, lumbar region

== ENCOUNTER → 2025-10-29 16:00 | Outpatient (BNVA) | payer MEDICARE, BC, SELFPAY | PROVIDERS: PCP Internal Medicine; Visit Provider Physician Assistant | DX: M54.16 Radiculopathy, lumbar region (principal); R53.83 Other fatigue; R06.00 Dyspnea, unspecified; I10 Essential (primary) hypertension; I48.91 Unspecified atrial fibrillation; C93.10 Chronic myelomonocytic leukemia not having achieved remission | CPT/HCPCS: 99212 ==

== ENCOUNTER 2025-10-30 11:46 | Outpatient (REF) | payer MEDICARE, BC, SELFPAY ==
--- NOTE | ~2025-10-30 | XR_ITS ---
EXAMINATION: XR CHEST CLINICAL INFORMATION: R53.83 - Other fatigue COMPARISON: Chest radiograph on October 02, 2025. Chest CT on July 19, 2025. TECHNIQUE: 2 views of the chest were obtained. FINDINGS: Lungs: No focal consolidation or evidence of pulmonary edema. Pleura: No pneumothorax. Trace left pleural effusion. Known multiple partially calcified pleural plaques, especially over the right chest. Heart/Mediastinum: Cardiomediastinal silhouette is within normal limits. Bones: No acute findings. XR/XR chest 2V IMPRESSION: 1. No focal lung consolidation. 2. Trace left pleural effusion. 3. Known multiple partially calcified pleural plaques, predominantly in the right chest. Electronically signed by: Kavitha Smith MD 10/30/2025 12:21 PM KIANA
[2025-10-30 15:15] LABS: Hematocrit 27.4 % (42.0-52.0); Hemoglobin 8.3 g/dl (14.0-18.0); Mean Corpuscular HGB Conc 30.3 g/dl (31.0-36.0); Mean Corpuscular Hemoglobin 26.8 pg (27.0-33.0); Mean Corpuscular Volume 88.4 fL (80.0-98.0); NRBC Abs Auto 1.310 X10*3/uL (0.0-0.012); NRBC Pct Auto 12.8 /100WBC (0.0-0.2); PLT CLUMP 1; Red Blood Count 3.10 X10*6/uL (4.60-5.80)
[2025-10-30 16:04] LABS: Atypical Lymphs Percent Manual 1 % (0-6); Band Neutrophils Percent 14 % (3-5); Basophils Percent Manual 1 % (0-2); Lymphocytes Percent Manual 9 % (20-40); Monocytes Percent Manual 1 % (2-11); Neutrophils Percent Manual 74 % (45-73)
[2025-10-30 16:05] LABS: Large Platelet PRESENT; RBC Morphology NORMAL
[2025-10-30 16:06] LABS: Basophilic Stippling 1+ (0-2) /OIF; Polychromasia 1+ (0-2) /OIF; Schistocytes 1+ (0-2) /OIF; Smudge Cells PRESENT
[2025-10-30 16:07] LABS: Atypical Lymph Absolute Manual 0.1 x10*3/uL; Basophils Abs Manual 0.1 X10*3/uL (0.0-0.2); Lymphocytes Absolute Manual 0.9 X10*3/uL (1.2-4.9); Monocytes Absolute Manual 0.1 X10*3/uL (0.1-1.2); Neutrophils Absolute Manual 9.0 X10*3/uL (2.0-8.3); Platelet Count 68 X10*3/uL (160-400); White Blood Count 10.2 X10*3/uL (4.8-10.8)
--- OUTSIDE RECORDS SUMMARY | 2025-10-30 18:17 | XMS_ITS | Clinical Summary ---
Author Organization [facility] Facility Address [address] [place] [address] Care Team Providers Care Motor Electrician Name Role Phone Mode Thompson MD Primary Care Provider [phone] Allergies No known active allergies Medications metFORMIN [...] age to complete this topic Insurance Medicare [facility] Medicare BCBS [place] Care Teams Motor Electrician Relationship Specialty Start Date End Date Mode Thompson MD [address] [place] [address] [address] [place], [place] PCP - General 11/30/20
--- OUTSIDE RECORDS SUMMARY | 2025-10-30 18:18 | XMS_ITS | Patient Health Record ---
Author Organization [facility] Address [address] [place] [address] Care Team Providers Care Plywood Layup Line Core Feeder Name Role Phone Donna (RETIRED) Mode VAZQUEZ Primary Care Provide r Unavailable Ezio Mendez Unavailable [phone] Reason For Referral No Information Medications Medication [...] Problem Screening for malignant neoplasm of colon (108960908) Encounter for screening for malignant neoplasm of colon (Z12.11) Active confirmed Problem Screening for malignant neoplasm of rectum (143124842) Encounter for screening for malignant neoplasm of rectum (Z12.12) Active confirmed Problem Elevated liver enzymes level (626371432) Elevated liver enzymes (R74.8) Active confirmed Problem Iron excess (27762962) Iron excess (E83.19) Active confirmed Plan Of Treatment Pending Test Test Name Order Date [id number] (A1A) 08/07/2016 MITOCHONDRIAL AB 08/07/2016 SMOOTH MUSCLE ANTIBODIES 08/07/2016 HEMOCHROMATOSIS (C282Y) 08/07/2016 FLUOR. ANTINUCLEAR AB SCREEN (KERWIN) 07/21 Future Test Test Name Order Date COLONOSCOPY 07/29/2016 Insurance Providers Payer Name Payer Address Payer Phone Subscriber Number Group Number Insured Name Patient Relationship to Insured Coverage Start Date Coverage End Date MEDICARE OF [place] [address] [place] [address] [id number] PASCUAL DWAYNE Self - patient is the insured HMO [employer] PROFESSIONAL CLAIMS [address] [place] [address] [phone] [id number] 500 DWAYNE GARNER Self - patient is the insured Medical (General) History Medical History History ICD Code Prostate cancer in 2008--surgery as stephen carrasco Denies [place],CVA,Lung disease,renal disease NIDDM Negative colonosc[place] [address] Elaine vargas Surgical History Surgery Date(Month/Year) Radical prosatatectomy in 2006 Tonsillectomy
== END 2025-10-30 11:47 | disposition home or self-care (01) ==
LOC: HO.XRAY 11:46
PROVIDERS: Internal Medicine; Absent Provider Nurse Practitioner Family; PCP Physician Assistant; Visit Provider Physician Assistant
DX: R53.83 Other fatigue (principal); R05.9 Cough, unspecified
CPT/HCPCS: 36415; 71046; 85007; 85025; 85027

== ENCOUNTER → 2025-10-30 11:56 | Outpatient (BNV) | payer MEDICARE, BC, SELFPAY | PROVIDERS: Absent Provider Nurse Practitioner Family; PCP Physician Assistant; Visit Provider Radiology Body Imaging | DX: J92.9 Pleural plaque without asbestos (principal) | CPT/HCPCS: 71046 ==